=== PATIENT | male | born 1960 | race Caucasian/White ===

== ENCOUNTER → 2016-07-09 | Outpatient (CLI) | payer MEDICARE, MEDICAID ==
[~2016-07-09] VITALS: Ht 170.2 cm; Wt 107.8 kg
[~2016-07-09] MED LIST: ASPI-110 PO; ASPI81TA82 PO; CALC0.5C6 PO; CALC667C PO; CALC667T PO; CARV12.52 PO; CARV25TA PO; CLON.1 PO; CLON0.1T PO; FURO1TAB60 PO; FURO1TAB93 PO; HYDR100T2 PO; HYDR50TA15 PO; INSULIN HUMAN REGULAR 1,000 UNITS/10 ML VIAL SQ ONE; INSULIN HUMAN REGULAR 1,000 UNITS/10 ML VIAL SQ PRN; LACTATED RINGER'S 1000 ML IV SCH; LEVEMIR SQ; LOSA100T PO; LOSA50TA PO; METOPROLOL TARTRATE 25 MG TAB PO PRN; NEUR100C PO; NITR.4 SL; NOVOLOGP2 SQ; PROPOFOL 200 MG/20 ML AMP IV ONE; SIMV40TA PO; SODIUM CHLORID 0.9% 500 ML IV SCH; ZOCO40TA PO
[2016-07-09 09:46] VITALS: BP 165/83; PULSE 77; RESP 18; TEMP 98.6; O2SAT 98
--- NOTE | 2016-07-09 11:23 | PD.PROCEDR ---
GI Procedure PROCEDURE PERFORMED Colonoscopy with snare polypectomy INDICATION FOR PROCEDURE History of colon polyps PROCEDURE: The procedure, risks and benefits were discussed with Mr. Singleton and informed consent was obtained. Anesthesia sedated him with Diprivan. He was placed in the left lateral decubitus position. Colonoscopy: The Pentax videoscope was introduced through the rectum and advanced to cecum where the ileocecal valve and appendiceal orifice were identified. Retroflexion was performed in the rectum. Colonic prep was fair FINDINGS: Colonic withdrawal time greater than 6 minutes as the scope was slowly withdrawn colonic mucosa was carefully inspected the patient was noted to have 2 large polyps some pedunculated both in the transverse colon both were excised using hot snare technique and both were retrieved for further evaluation otherwise colonic examination was unremarkable so as retroflexion in rectal examination ESTIMATED BLOOD LOSS: None SPECIMENS REMOVED: Colon polyps COMPLICATIONS: None IMPRESSION: Colon polyp PLAN: Await biopsy Follow-up as needed High fiber diet Colonoscopy in 3 years Vinayak Tam MD Jul 09, 2016 11:23
[2016-07-09 12:00] VITALS: BP 135/75; PULSE 68; RESP 18; O2SAT 99
--- NOTE | 2016-07-09 18:25 | EKG ---
Date Performed: 07/09/2016 Time Performed: 09:32:14 PTAGE: 56 years EKG: Sinus rhythm WITH FIRST DEGREE AV BLOCK BORDERLINE LEFT AXIS DEVIATION LEFT VENTRICULAR HYPERTROPHY AND ST-T CLIFFORD GE ABNORMAL ECG PREVIOUS TRACING : 04/20/2015 17.58 Since previous tracing, no significant change noted DOCTOR: Cathryn Ravi Interpretating Date/Time 07/09/2016 18:23:50
== END ==
LOC: HEND 08:39
PROVIDERS: ATTEND Internal Medicine Gastroenterology
DX: Z12.11 Encounter for screening for malignant neoplasm of colon (principal); Z86.010 Personal history of colon polyps; D12.3 Benign neoplasm of transverse colon; I12.9 Hypertensive chronic kidney disease with stage 1 through stage 4 chronic kidney disease, or unspecified chronic kidney disease; N18.2 Chronic kidney disease, stage 2 (mild); E11.9 Type 2 diabetes mellitus without complications; Z79.82 Long term (current) use of aspirin; Z99.2 Dependence on renal dialysis; Z79.4 Long term (current) use of insulin
CPT/HCPCS: 00810; 45385; 82948; 84132; 88305; 93005; J1815; J7040

== ENCOUNTER 2017-04-12 17:22 | Inpatient (IN) | payer MEDICARE, MEDICAID ==
[~2017-04-12] VITALS: Ht 170.2 cm; Wt 104.5 kg
[~2017-04-12 17:22] MED LIST changes: -ASPI81TA82 PO; -CALC0.5C6 PO; -CALC667T PO; -CARV12.52 PO; -CLON.1 PO; -FURO1TAB93 PO; -HYDR100T2 PO; -INSULIN HUMAN REGULAR 1,000 UNITS/10 ML VIAL SQ ONE; -INSULIN HUMAN REGULAR 1,000 UNITS/10 ML VIAL SQ PRN; -LACTATED RINGER'S 1000 ML IV SCH; -METOPROLOL TARTRATE 25 MG TAB PO PRN; -NITR.4 SL; -PROPOFOL 200 MG/20 ML AMP IV ONE; -SODIUM CHLORID 0.9% 500 ML IV SCH; -ZOCO40TA PO
[2017-04-12 17:24] VITALS: BP 142/87; PULSE 111; RESP 26; TEMP 98.4; O2SAT 99
[2017-04-12] MEDS ORDERED: HEPARIN SODIUM - IV 10,000 UNITS/10 ML VIAL IV ONE (18:00)
[2017-04-12] MEDS ORDERED: SODIUM CHLORIDE 0.9% FLUSH 10 ML FLUSH IVF PRN (18:00)
[2017-04-12] MEDS ORDERED: HEPARIN-D5W 25,000 U/250 ML 250 ML IV ONE (18:00)
[2017-04-12] MEDS ORDERED: HYDR-3800 PO (18:22)
--- NOTE | 2017-04-12 18:30 | RADRPT ---
EXAM DATE/TIME: 04/12/2017 18:04 [place] COMPARISON: CHEST PA & LAT, April 23, 2015, 13:43. INDICATIONS : Chest pain. MEDICAL HISTORY : Hypertension. Cerebrovascular disease. Diabetes SURGICAL HISTORY : Vas Cath placement ENCOUNTER: Initial ACUITY: 4 - 6 days PAIN SCORE: 7/10 LOCATION: Bilateral chest FINDINGS: The lungs are clear without infiltrate, nodule, or mass. There is no appreciable pleural effusion fo r technique. Heart and mediastinum are unremarkable. CONCLUSION: No acute cardiopulmonary disease. Rachell Hernandez MD on April 12, 2017 at 18:28 Board Certified Radiologist. This report was verified electronically.
[2017-04-12 18:32] VITALS: BP_SYST 149; BP_SYST 150; BP_DIAS 74; BP_DIAS 87; PULSE 100; PULSE 103; RESP 16; O2SAT 95; O2SAT 99
--- NOTE | 2017-04-12 18:39 | PD ---
HPI Chief Complaint: Chest Pain Time Seen by Provider: 17:33 Travel History International Travel<30 days: No Contact w/Intl Traveler<30days: No Traveled to known affect area: No History of Present Illness HPI 56-year-old male came to the emergency room with history of substernal chest pain radiating to his right shoulder. Patient says that he's been getting on and off chest pain for past 3-4 days. He has end-stage renal disease with hemodialysis dependence. He was getting hemodialyzed today when he started getting the pain again. He was given 3 sublingual nitroglycerin at the dialysis Center and he was recommended to come to the emergency room. Patient did not want to come at that time and went home instead. At home he continued to get the chest pain and decided to come in. No associated shortness of breath or nausea vomiting. No syncopal episode. Patient says that he had a stress test 2 years ago. No history of coronary artery disease. He was atrial fibrillation on the monitor. No history of previous A. fib. Patient is not on blood thinners. [facility] Past Medical History Narrative Medical List of his past medical, surgical, social and family history is reviewed from the nursing note. Autoimmune Disease: No Heart Rhythm Problems: No Cancer: No Cardiac Catheterization: Yes (2010 IN [place]) Cardiovascular Problems: Yes (HEART ATTACK 2010) High Cholesterol: Yes Chest Pain: No Congestive Heart Failure: Yes Diabetes: Yes Diminished Hearing: No Endocrine: No Gastrointestinal Disorders: No Genitourinary: No Hepatitis: No Hiatal Hernia: No Hypertension: Yes Immune Disorder: No Implanted Vascular Access Dvce: No Kidney Stones: No Musculoskeletal: No Neurologic: No Psychiatric: No Reproductive: No Respiratory: No Myocardial Infarction: Yes (2010) Renal Failure: Yes Sleep Apnea: No Thyroid Disease: No Past Surgical History Abdominal Surgery: No AICD: No Arteriovenous Shunt: Yes Cardiac Surgery: No Coronary Artery Bypass Graft: No Ear Surgery: No Endocrine Surgery: No Eye Surgery: Yes (BILAT. CATARACT SX) Genitourinary Surgery: No Gynecologic Surgery: No Insulin Pump: No Joint Replacement: No Oral Surgery: No Pacemaker: No Thoracic Surgery: No Other Surgery: Yes (R PINKIE TOE REMOVED) Social History Alcohol Use: No Tobacco Use: No Substance Use: No Allergies-Medications (Allergen,Severity, Reaction): Coded Allergies: No Known Allergies (Unverified , 1/12/17) Comments No known drug allergies. Reported Meds & Prescriptions Reported Meds & Active Scripts Active Reported Hydralazine HCl 50 Mg Tablet 50 Mg PO TID Levemir Inj (Insulin Detemir) 1,000 unit/ 10 ML Vial 30 Units SQ HS Do not mix with any other Insulin. Levemir Inj (Insulin Detemir) 1,000 unit/ 10 ML Vial 25 Units SQ DAILY Do not mix with any other Insulin. Novolog Inj (Insulin Aspart) 1,000 Unit/10 Ml Vial 15 Units SQ TID Simvastatin 40 Mg Tab 40 Mg PO DAILY Losartan (Losartan Potassium) 100 Mg Tab 100 Mg PO HS Losartan (Losartan Potassium) 50 Mg Tab 50 Mg PO DAILY Aspirin 81 (Aspirin) 81 Mg Tabdr 81 Mg PO DAILY Clonidine (Clonidine HCl) 0.1 Mg Tab 0.1 Mg PO BID Carvedilol 25 Mg Tab 25 Mg PO BID Calcium Acetate (Calcium Acetate (Phosphate Bin) 667 Mg Cap 1,334 Mg PO TID Neurontin (Gabapentin) 100 Mg Cap 100 Mg PO TID Narrative Medication List of his home medications reviewed from the nursing note. Review of Systems Except as stated in HPI: all other systems reviewed are Neg Physical Exam Narrative GENERAL: Awake, alert, obese, moderate distress SKIN: Focused skin assessment warm/dry. Right AV fistula with thrill. HEAD: Atraumatic. Normocephalic. EYES: Pupils equal and round. No scleral icterus. No injection or drainage. ENT: No nasal bleeding or discharge. Mucous membranes pink and moist. NECK: Trachea midline. No JVD. CARDIOVASCULAR: Regular rate and rhythm. No murmur appreciated. RESPIRATORY: No accessory muscle use. Clear to auscultation. Breath sounds equal bilaterally. GASTROINTESTINAL: Abdomen soft, non-tender, nondistended. Hepatic and splenic margins not palpable. MUSCULOSKELETAL: No obvious deformities. No clubbing. No cyanosis. No edema. NEUROLOGICAL: Awake and alert. No obvious cranial nerve deficits. Motor grossly within normal limits. Normal speech. PSYCHIATRIC: Appropriate mood and affect; insight and judgment normal. Data Data Last Documented VS Orders Orders Electrocardiogram (04/12/17 17:54) Basic Metabolic Panel (Bmp) (04/12/17 17:54) Ckmb (Isoenzyme) Profile (04/12/17 17:54) Complete Blood Count With Diff (04/12/17 17:54) Magnesium (Mg) (04/12/17 17:54) Prothrombin Time / Inr (Pt) (04/12/17 17:54) Act Partial Throm Time (Ptt) (04/12/17 17:54) Troponin I (04/12/17 17:54) Chest, Single Ap (04/12/17 17:54) Ecg Monitoring (04/12/17 17:54) Bilateral Bp Monitoring (04/12/17 17:54) Iv Access Insert/Monitor (04/12/17 17:54) Oximetry (04/12/17 17:54) Oxygen Administration (04/12/17 17:54) Sodium Chloride 0.9% Flush (Ns Flush) (04/12/17 18:00) Heparin Infusion BLAIRE.Q1H (04/12/17 17:59) Heparin Inj (Heparin Inj) (04/12/17 18:00) Heparin Inj (Heparin Inj) (04/13/17 00:00) Heparin Inj (Heparin Inj) (04/13/17 00:00) Heparin-D5w 25,000 U/250 Ml (Heparin-D5w (04/12/17 18:00) Cbc No Diff, Includes Plts (04/15/17 06:00) CKMB (04/12/17 18:00) CKMB% (04/12/17 18:00) Metoprolol Tartrate Inj (Lopressor Inj) (04/12/17 19:30) Nitroglycerin-D5w 50 Mg/250 Ml (Nitrogly (04/12/17 19:30) Admit Order (Ed Use Only) (04/12/17 19:32) Consult Nephrology (04/12/17 ) Labs Laboratory Tests Test 04/12/17 18:00 White Blood Count 9.4 TH/MM3 Red Blood Count 3.49 MIL/MM3 Hemoglobin 11.3 GM/DL Hematocrit 33.5 % Mean Corpuscular Volume 95.9 FL Mean Corpuscular Hemoglobin 32.4 PG Mean Corpuscular Hemoglobin Concent 33.7 % Red Cell Distribution Width 14.8 % Platelet Count 141 TH/MM3 Mean Platelet Volume 10.0 FL Neutrophils (%) (Auto) 79.8 % Lymphocytes (%) (Auto) 10.4 % Monocytes (%) (Auto) 8.1 % Eosinophils (%) (Auto) 1.1 % Basophils (%) (Auto) 0.6 % Neutrophils # (Auto) 7.5 TH/MM3 Lymphocytes # (Auto) 1.0 TH/MM3 Monocytes # (Auto) 0.8 TH/MM3 Eosinophils # (Auto) 0.1 TH/MM3 Basophils # (Auto) 0.1 TH/MM3 CBC Comment DIFF FINAL Differential Comment Prothrombin Time 12.0 SEC Prothromb Time International Ratio 1.1 RATIO Activated Partial Thromboplast Time 27.3 SEC Blood Urea Nitrogen 36 MG/DL Creatinine 5.37 MG/DL Random Glucose 203 MG/DL Calcium Level 8.3 MG/DL Magnesium Level 2.0 MG/DL Sodium Level 135 MEQ/L Potassium Level 5.2 MEQ/L Chloride Level 106 MEQ/L Carbon Dioxide Level 17.5 MEQ/L Anion Gap 12 MEQ/L Estimat Glomerular Filtration Rate 11 ML/MIN Total Creatine Kinase 520 U/L Creatine Kinase MB 13.2 NG/ML Creatine Kinase MB % 2.5 % Troponin I 9.94 NG/ML MDM Medical Decision Making Medical Screen Exam Complete: Yes Emergency Medical Condition: Yes Medical Record Reviewed: Yes Interpretation(s) Twelve-lead EKG was reviewed by me. Atrial fibrillation, RVR, left axis deviation, LVH by voltage criteria, old inferior NM, lateral T wave inversion that is new from generally 2017. Heart rate of 10 9 bpm Differential Diagnosis STEMI, Unstable Angina, New Onset A. fib with RVR Narrative Course 6:38 PM patient was started on heparin bolus and drip for the new onset A. fib. My suspicion is really high for non-STEMI. Especially with EKG changes. Awaiting for the blood test results to come back. I've explained all this to the patient and he understands. Patient will need to be admitted medically. 7:17 PM patient's troponin indeed is very high. This is in spite of him being dialyzed this morning. I would like to admit this patient to the intensive care unit at this point. Awaiting for spragger as well as ortho/prosthetic aide to call back. 7:38 PM case was discussed with patient's fruit raiser Dr. Corona to notify him regarding patient's current diagnosis and possible need for dialysis tomorrow. I also discussed with Dr. Gorssman who is on-call for cardiology wanted the patient to be started on nitroglycerin, IV Lopressor and nothing by mouth after midnight so that he can be catheter tomorrow. Patient will be admitted to the ortho/prosthetic aide Dr. Hayes. Critical Care Narrative Aggregate critical care time was 60 minutes. Time to perform other separately billable procedures was not included in the critical care time. My time did not include minutes spent treating any other patients simultaneously or on activities that did not directly contribute to the patient's treatment. The services I provided to this patient were to treat and/or prevent clinically significant deterioration that could result in: Non-STEMI, heparin bolus and drip, end-stage renal disease, hemodialysis dependent I provided critical care services requiring my management, as noted below: Chart data review, documentation time, medication orders and management, vital sign assessments/reviewing monitor data, ordering and reviewing lab tests, ordering and interpreting/reviewing x-rays and diagnostic studies, care of the patient and discussion of the patient with the admitting physicians. Procedures EKG Prior to Arrival: No Physician Communication Physician Communication Dr. Grossman, Dr. Hayes, Dr. Corona Diagnosis Primary Impression: Non-STEMI (non-ST elevated myocardial infarction) Additional Impressions: End stage renal disease Dependent on hemodialysis Metabolic acidosis Admitting Information Admitting Physician Requests: Admit Scripts Alprazolam (Xanax) 0.25 Mg Tab 0.25 MG PO Q8H Y for ANXIETY, #10 TAB Prov: Jaylan Mendez MD 04/17/17 Farzana Khan MD Apr 12, 2017 18:39
[2017-04-12 18:48] LABS: AUTOMATED NEUTROPHIL # 7.5 TH/MM3 (1.8-7.7); BASOPHIL # 0.1 TH/MM3 (0-0.2); BASOPHIL % 0.6 % (0.0-2.0); EOSINOPHIL # 0.1 TH/MM3 (0-0.4); EOSINOPHIL % 1.1 % (0.0-4.0); HEMATOCRIT 33.5 % (39.0-51.0); HEMO FLAGS DIFF FINAL; LYMPH % 10.4 % (9.0-44.0); MEAN CELL VOLUME 95.9 FL (80.0-100.0); MEAN CORPUSCULAR HEMOGLOBIN 32.4 PG (27.0-34.0); MEAN CORPUSCULAR HGB CONC 33.7 % (32.0-36.0); MONO % 8.1 % (0.0-8.0); NEUT % 79.8 % (16.0-70.0); PLATELET COUNT 141 TH/MM3 (150-450); RED BLOOD COUNT 3.49 MIL/MM3 (4.50-5.90); RED CELL DISTRIBUTION WIDTH 14.8 % (11.6-17.2); WHITE BLOOD COUNT 9.4 TH/MM3 (4.0-11.0)
[2017-04-12 19:02] LABS: APTT (PATIENT) 27.3 SEC (24.3-30.1); INTERNATIONAL NORMALIZED RATIO 1.1 RATIO
[2017-04-12 19:10] LABS: BICARBONATE 17.5 MEQ/L (21.0-32.0); POTASSIUM 5.2 MEQ/L (3.5-5.1)
[2017-04-12] MEDS ORDERED: METOPROLOL TARTRATE 5 MG/5 ML VIAL IV PUSH ONE (19:30)
[2017-04-12] MEDS ORDERED: NITROGLYCERIN-D5W 50 MG/250 ML 250 ML IV PRN (19:30)
[2017-04-12 19:33] LABS: CKMB 13.2 NG/ML (0.5-3.6)
[2017-04-12] MEDS ORDERED: ALPRAZolam 0.25 MG TAB PO PRN (20:15)
[2017-04-12] MEDS ORDERED: ONDANSETRON HCL 4 MG/2 ML VIAL IV PUSH PRN (20:15)
[2017-04-12] MEDS ORDERED: CHLORHEXIDINE GLUCONATE 2 % 1 PACK (2 CLOTHS) TOP PRN (20:15)
[2017-04-12] MEDS ORDERED: HEPARIN-D5W 25,000 U/250 ML 250 ML IV PRN (20:15)
[2017-04-12] MEDS ORDERED: ACETAMINOPHEN 325 MG TAB PO PRN (20:15)
[2017-04-12] MEDS ORDERED: MISCELLANEOUS NURSING INFORMATION XX SCH (20:15)
[2017-04-12] MEDS ORDERED: SODIUM CHLORIDE 0.9% FLUSH 10 ML FLUSH IV FLUSH PRN (20:15)
[2017-04-12] MEDS ORDERED: DOCUSATE SODIUM 100 MG CAP PO PRN (20:15)
[2017-04-12 20:24] VITALS: BP 129/72; PULSE 122; RESP 18; O2SAT 99
--- NOTE | 2017-04-12 21:13 | HHI.HP ---
[facility] Service Critical Care Medicine Primary Care Physician Noam Bunn MD Admission Diagnosis NSTEMI, ESRD, HD dependent Diagnosis: Travel History International Travel<30 Days: No Contact w/Intl Traveler <30 Da: No Traveled to Known Affected Are: No History of Present Illness 56-year-old male comes with history of substernal chest pain radiating to his right shoulder. Patient says that he's been getting on and off chest pain for past 3-4 days. He has end-stage renal disease with hemodialysis dependence. He was getting hemodialyzed today when he started getting the pain again. He was given 3 sublingual nitroglycerin at the dialysis Center and he was recommended to come to the emergency room. Patient did not want to come at that time and went home instead. At home he continued to get the chest pain and decided to come in. No syncopal episode. Patient says that he had a stress test 2 years ago. No history of coronary artery disease. He was atrial fibrillation on the monitor in the emergency department. No history of previous A. fib. His initial troponin was 10 and the patient is admitted to ICU as a non-ST elevation myocardial infarction. Review of Systems Constitutional: COMPLAINS OF: Diaphoretic episodes, DENIES: Fatigue, Fever, Weight gain, Weight loss, Chills, Dizziness, Change in appetite, Night Sweats Endocrine: DENIES: Heat/cold intolerance, Polydipsia, Polyuria, Polyphagia Eyes: DENIES: Blurred vision, Diplopia, Eye inflammation, Eye pain, Vision loss , Photosensitivity, Double Vision Ears, nose, mouth, throat: DENIES: Tinnitus, Hearing loss, Vertigo, Nasal discharge, Oral lesions, Throat pain, Hoarseness, Ear Pain, Running Nose, Epistaxis, Sinus Pain, Toothache, Odynophagia Respiratory: COMPLAINS OF: Shortness of breath, DENIES: Apneas, Cough, Snoring , Wheezing, Hemoptysis, Sputum production Cardiovascular: COMPLAINS OF: Chest pain, DENIES: Palpitations, Syncope, Dyspnea on Exertion, PND, Lower Extremity Edema, Orthopnea, Claudication Gastrointestinal: DENIES: Abdominal pain, Black stools, Bloody stools, Constipation, Diarrhea, Nausea, Vomiting, Difficulty Swallowing, Anorexia Genitourinary: DENIES: Sexual dysfunction, Urinary frequency, Urinary incontinence, Urgency, Hematuria, Dysuria, Nocturia, Penile Discharge, Testicular Pain, Testicular Swelling Musculoskeletal: DENIES: Joint pain, Muscle aches, Stiffness, Joint Swelling, Back pain, Neck pain Integumentary: DENIES: Abnormal pigmentation, Nail changes, Pruritus, Rash Hematologic/lymphatic: DENIES: Bruising, Lymphadenopathy Immunologic/allergic: DENIES: Eczema, Urticaria Neurologic: DENIES: Abnormal gait, Headache, Localized weakness, Paresthesias, Seizures, Speech Problems, Tremor, Poor Balance Psychiatric: DENIES: Anxiety, Confusion, Mood changes, Depression, Hallucinations, Agitation, Suicidal Ideation, Homicidal Ideation, Delusions Past Family Social History Allergies: Coded Allergies: No Known Allergies (Unverified , 07/08/16) Past Medical History Hypertension Diabetes mellitus End-stage renal disease on hemodialysis Past Surgical History Cataract Surgery, Right 5th Toe Amputation Reported Medications Reported Meds & Active Scripts Active Reported Hydralazine HCl 50 Mg Tablet 50 Mg PO TID Levemir Inj (Insulin Detemir) 1,000 unit/ 10 ML Vial 30 Units SQ HS Do not mix with any other Insulin. Levemir Inj (Insulin Detemir) 1,000 unit/ 10 ML Vial 25 Units SQ DAILY Do not mix with any other Insulin. Novolog Inj (Insulin Aspart) 1,000 Unit/10 Ml Vial 15 Units SQ TID Simvastatin 40 Mg Tab 40 Mg PO DAILY Losartan (Losartan Potassium) 100 Mg Tab 100 Mg PO HS Losartan (Losartan Potassium) 50 Mg Tab 50 Mg PO DAILY Aspirin 81 (Aspirin) 81 Mg Tabdr 81 Mg PO DAILY Clonidine (Clonidine HCl) 0.1 Mg Tab 0.1 Mg PO BID Carvedilol 25 Mg Tab 25 Mg PO BID Calcium Acetate (Calcium Acetate (Phosphate Bin) 667 Mg Cap 1,334 Mg PO TID Neurontin (Gabapentin) 100 Mg Cap 100 Mg PO TID Active Ordered Medications Current Medications Medications (Trade) Dose Ordered Sig/Taj Route PRN Reason Start Time Stop Time Status Last Admin Dose Admin Sodium Chloride (NS Flush) 2 ml UNSCH PRN IVF FLUSH AFTER USING IV ACCESS 04/12/17 18:00 Heparin Sodium (Porcine) (Heparin Inj) 5,000 units UNSCH PRN IV APTT LESS THAN 25 04/13/17 00:00 Heparin Sodium (Porcine) (Heparin Inj) 2,500 units UNSCH PRN IV APTT 25 TO 39 04/13/17 00:00 Nitroglycerin/ Dextrose 250 ml @ 1.5 mls/hr TITRATE PRN IV Chest pain relief 04/12/17 19:30 Aspirin (Ecotrin Ec) 81 mg DAILY PO 04/13/17 09:00 Calcium Acetate (Phoslo) 1,334 mg TID PO 04/13/17 09:00 Carvedilol (Coreg) 25 mg BID PO 04/12/17 21:00 Clonidine (Catapres) 0.1 mg BID PO 04/12/17 21:00 Gabapentin (Neurontin) 100 mg TID PO 04/13/17 09:00 Hydralazine HCl (Apresoline) 50 mg TID PO 04/13/17 09:00 Losartan Potassium (Cozaar) 50 mg DAILY PO 04/13/17 09:00 Pravastatin Sodium (Pravachol) 80 mg DAILY PO 04/13/17 09:00 Sodium Chloride (NS Flush) 2 ml BID IV FLUSH 04/12/17 21:00 Sodium Chloride (NS Flush) 2 ml UNSCH PRN IV FLUSH FLUSH AFTER USING IV ACCESS 04/12/17 20:15 Aspirin (Ecotrin Ec) 325 mg DAILY PO 04/13/17 09:00 Nitroglycerin (Nitroglycerin 2% Oint) 1 inch DAILY TOP 04/13/17 09:00 Morphine Sulfate (Morphine Inj) 2 mg Q3H PRN IV PUSH SEVERE PAIN 04/12/17 20:15 Acetaminophen (Tylenol) 650 mg Q6H PRN PO HEADACHE OR TEMP > 101 F 04/12/17 20:15 Docusate Sodium (Colace) 100 mg BID PRN PO CONSTIPATION 04/12/17 20:15 Alprazolam (Xanax) 0.25 mg Q8H PRN PO ANXIETY 04/12/17 20:15 Ondansetron HCl (Zofran Inj) 4 mg Q6H PRN IV PUSH NAUSEA OR VOMITING 04/12/17 20:15 Metoprolol Tartrate (Lopressor) 25 mg Q6H PO 04/12/17 21:00 Heparin Sodium/ Dextrose 250 ml @ 10 mls/hr TITRATE PRN IV Coagulation management 04/12/17 20:15 Miscellaneous Information 1 [id number] XX 04/12/17 20:15 Chlorhexidine Gluconate (Chlorhexidine 2% Cloth) 3 pack Taper DAILY@04 TOP 04/13/17 04:00 04/09/18 03:59 Chlorhexidine Gluconate (Chlorhexidine 2% Cloth) 3 pack UNSCH PRN TOP HYGIENIC CARE 04/12/17 20:15 Family History No family history of malignancy Social History Denies history of alcohol tobacco or illicit drug abuse Physical Exam Vital Signs Vital Signs Date Time Temp Pulse Resp B/P (MAP) Pulse Ox O2 Delivery O2 Flow Rate FiO2 04/12/17 20:24 122 18 129/72 (91) 99 Nasal Cannula 2.00 04/12/17 18:32 98 Nasal Cannula 2.00 04/12/17 18:32 103 16 149/87 (107) 99 Nasal Cannula 2.00 04/12/17 18:32 100 16 150/74 (99) 95 Nasal Cannula 2.00 04/12/17 18:00 99 16 96 Nasal Cannula 2.00 04/12/17 17:24 98.4 111 26 142/87 (105) 99 Room Air Physical Exam GENERAL: Well-nourished, well-developed patient. SKIN: Warm and dry. HEAD: Normocephalic. EYES: No scleral icterus. No injection or drainage. NECK: Supple, trachea midline. No JVD or lymphadenopathy. CARDIOVASCULAR: Regular rate and rhythm without murmurs, gallops, or rubs. RESPIRATORY: Breath sounds equal bilaterally. No accessory muscle use. GASTROINTESTINAL: Abdomen soft, non-tender, nondistended. Morbidly obese MUSCULOSKELETAL: No cyanosis, or edema. BACK: Nontender without obvious deformity. NEURO EXAM: GCS: M 6 V 5 E 4 Mental Status: The patient is alert and oriented to person, place, and time with normal speech. Cranial Nerves: Visual acuity intact bilaterally. Visual jacob normal in all quadrants. Pupils are round, reactive to light. Extraocular movements are intact without ptosis. Hearing is normal bilaterally. Voice is normal. Tongue protrudes midline and moves symmetrically. Reflexes: Biceps, patellar, and Achilles are 2/4 bilaterally. No clonus. Laboratory Laboratory Tests Test 04/12/17 18:00 White Blood Count 9.4 Red Blood Count 3.49 Hemoglobin 11.3 Hematocrit 33.5 Mean Corpuscular Volume 95.9 Mean Corpuscular Hemoglobin 32.4 Mean Corpuscular Hemoglobin Concent 33.7 Red Cell Distribution Width 14.8 Platelet Count 141 Mean Platelet Volume 10.0 Neutrophils (%) (Auto) 79.8 Lymphocytes (%) (Auto) 10.4 Monocytes (%) (Auto) 8.1 Eosinophils (%) (Auto) 1.1 Basophils (%) (Auto) 0.6 Neutrophils # (Auto) 7.5 Lymphocytes # (Auto) 1.0 Monocytes # (Auto) 0.8 Eosinophils # (Auto) 0.1 Basophils # (Auto) 0.1 CBC Comment DIFF FINAL Differential Comment Prothrombin Time 12.0 Prothromb Time International Ratio 1.1 Activated Partial Thromboplast Time 27.3 Blood Urea Nitrogen 36 Creatinine 5.37 Random Glucose 203 Calcium Level 8.3 Magnesium Level 2.0 Sodium Level 135 Potassium Level 5.2 Chloride Level 106 Carbon Dioxide Level 17.5 Anion Gap 12 Estimat Glomerular Filtration Rate 11 Total Creatine Kinase 520 Creatine Kinase MB 13.2 Creatine Kinase MB % 2.5 Troponin I 9.94 Result Diagram: 04/12/17 1800 04/12/17 1800 Imaging Last 24 hours Impressions Chest X-Ray 04/12/17 3624 Signed Impressions: Service Date/Time: Wednesday, April 12, 2017 18:04 - CONCLUSION: No acute cardiopulmonary disease. Rachell Hernandez MD Capgeovanyi VTE Risk Assessment Caprini VTE Risk Assessment: Mod/High Risk (score >= 2) Caprini Risk Assessment Model Point Value = 1 Point Value = 2 Point Value = 3 Point Value = 5 Age 41-60 Minor surgery BMI > 25 kg/m2 Swollen legs Varicose veins or History of unexplained or recurrent spontaneous Oral contraceptives or hormone replacement Sepsis (< 1 month) Serious lung disease, including pneumonia (< 1 month) Abnormal pulmonary function Acute myocardial infarction Congestive heart failure (< 1 month) History of inflammatory bowel disease Medical patient at bed rest Age 61-74 Arthroscopic surgery Major open surgery (> 45 min) Laparoscopic surgery (> 45 min) Malignancy Confined to bed (> 72 hours) Immobilizing plaster cast Central venous access Age >= 75 History of VTE Family history of VTE Factor V Leiden Prothrombin [id number] Lupus anticoagulant Anticardiolipin antibodies Elevated serum homocysteine Heparin-induced thrombocytopenia Other congenital or acquired thrombophilia Stroke (< 1 month) Elective arthroplasty Hip, pelvis, or leg fracture Acute spinal cord injury (< 1 month) Prophylaxis Regimen Total Risk Factor Score Risk Level Prophylaxis Regimen 0-1 Low Early ambulation 2 Moderate Order ONE of the following: *Sequential Compression Device (SCD) *Heparin 5000 units SQ BID 3-4 Higher Order ONE of the following medications: *Heparin 5000 units SQ TID *Enoxaparin/Lovenox 40 mg SQ daily (WT < 150 kg, CrCl > 30 mL/min) *Enoxaparin/Lovenox 30 mg SQ daily (WT < 150 kg, CrCl > 10-29 mL/min) *Enoxaparin/Lovenox 30 mg SQ BID (WT < 150 kg, CrCl > 30 mL/min) AND/OR *Sequential Compression Device (SCD) 5 or more Highest Order ONE of the following medications: *Heparin 5000 units SQ TID (Preferred with Epidurals) *Enoxaparin/Lovenox 40 mg SQ daily (WT < 150 kg, CrCl > 30 mL/min) *Enoxaparin/Lovenox 30 mg SQ daily (WT < 150 kg, CrCl > 10-29 mL/min) *Enoxaparin/Lovenox 30 mg SQ BID (WT < 150 kg, CrCl > 30 mL/min) AND *Sequential Compression Device (SCD) Assessment and Plan Assessment and Plan Non-ST elevation myocardial infarction - Heparin drip - Monitor trends of troponins - Serial EKGs - Cardiology consult Dr. Grossman appreciated - Metoprolol 25 every 6 hours - Nitro paste - Atorvastatin - Aspirin - Admit to ICU - Cardiac catheterization tomorrow a.m. Diabetes mellitus - Hold long acting insulin due to nothing by mouth - Insulin sliding scale Hypertension - Hydralazine - Metoprolol - Hold lisinopril End-stage renal disease - HD per nephrology DVT GI prophylaxis - Teds SCDs - Heparin drip - Pepcid Critical Care: The total critical care time was 35 minutes. Time to perform other separately billable procedures was not included in the critical care time. Brijesh Hayes MD Apr 12, 2017 21:13
[2017-04-12] MEDS ORDERED: DEXTROSE 50% IN WATER 50 ML VIAL(D50) IV PUSH PRN (21:15)
[2017-04-12] MEDS ORDERED: GLUCAGON 1 MG/ML VIAL OTHER PRN (21:15)
[2017-04-12 21:31] VITALS: BP 119/68
[2017-04-12 22:00] VITALS: BP 163/93; PULSE 89; RESP 21; TEMP 99.9; O2SAT 96
[2017-04-12] MEDS: cloNIDine HCL 0.1 MG TAB PO SCH (22:35)
[2017-04-12] MEDS: SODIUM CHLORIDE 0.9% FLUSH 10 ML FLUSH IV FLUSH SCH (22:35)
[2017-04-12] MEDS: CARVEDILOL 12.5 MG TAB PO SCH (22:35)
[2017-04-12] MEDS: METOPROLOL TARTRATE 25 MG TAB PO SCH (22:35)
[2017-04-13] VITALS (12 sets, daily range): BP systolic 88–140; BP diastolic 53–77; PULSE 66–89; RESP 15–21; TEMP 97.8–98.4; O2SAT 97–100
[2017-04-13] MEDS ORDERED: HEPARIN SODIUM - IV 10,000 UNITS/10 ML VIAL IV PRN ×2
[2017-04-13] MEDS: MORPHINE SULFATE 4 MG/ML INJ IV PUSH PRN (00:18)
[2017-04-13] MEDS: NITROGLYCERIN 2% OINT 1 GM PACKET TOPICAL SCH ×4 (00:18→17:39)
[2017-04-13 00:46] LABS: MEAN CELL VOLUME 96.3 FL (80.0-100.0); MEAN CORPUSCULAR HGB CONC 33.2 % (32.0-36.0); PLATELET COUNT 126 TH/MM3 (150-450); RED BLOOD COUNT 3.43 MIL/MM3 (4.50-5.90); RED CELL DISTRIBUTION WIDTH 14.6 % (11.6-17.2); REVIEW FLAG FINAL; WHITE BLOOD COUNT 9.6 TH/MM3 (4.0-11.0)
[2017-04-13 00:51] LABS: APTT (PATIENT) 32.2 SEC (24.3-30.1); INTERNATIONAL NORMALIZED RATIO 1.1 RATIO; PROTHROMBIN TIME - PATIENT 12.1 SEC (9.8-11.6)
[2017-04-13 01:13] LABS: HDL CHOLESTEROL 39.5 MG/DL (40.0-60.0); INDIRECT BILIRUBIN 0.3 MG/DL (0.0-0.8); TOTAL BILIRUBIN ADULT 0.5 MG/DL (0.2-1.0)
[2017-04-13 01:30] LABS: CKMB 10.1 NG/ML (0.5-3.6)
[2017-04-13] MEDS: CHLORHEXIDINE GLUCONATE 2 % 1 PACK (2 CLOTHS) TOP SCH (04:00)
[2017-04-13 04:06] LABS: AUTOMATED NEUTROPHIL # 6.9 TH/MM3 (1.8-7.7); BASOPHIL # 0.1 TH/MM3 (0-0.2); BASOPHIL % 0.6 % (0.0-2.0); EOSINOPHIL # 0.1 TH/MM3 (0-0.4); EOSINOPHIL % 1.2 % (0.0-4.0); HEMATOCRIT 31.3 % (39.0-51.0); HEMO FLAGS DIFF FINAL; LYMPH % 15.2 % (9.0-44.0); LYMPHOCYTE # 1.4 TH/MM3 (1.0-4.8); MEAN CELL VOLUME 96.5 FL (80.0-100.0); MEAN CORPUSCULAR HGB CONC 34.2 % (32.0-36.0); PLATELET COUNT 112 TH/MM3 (150-450); RED BLOOD COUNT 3.24 MIL/MM3 (4.50-5.90); RED CELL DISTRIBUTION WIDTH 14.6 % (11.6-17.2); WHITE BLOOD COUNT 9.3 TH/MM3 (4.0-11.0)
[2017-04-13 04:14] LABS: APTT (PATIENT) 30.8 SEC (24.3-30.1)
[2017-04-13 04:28] LABS: BICARBONATE 19.7 MEQ/L (21.0-32.0); POTASSIUM 5.1 MEQ/L (3.5-5.1)
[2017-04-13] MEDS: METOPROLOL TARTRATE 25 MG TAB PO SCH ×2 (04:38→09:27)
[2017-04-13 04:50] LABS: CKMB 8.8 NG/ML (0.5-3.6)
[2017-04-13] MEDS: INSULIN ASPART SUPPLEMENTAL SCALE SQ SCH ×4 (08:00→21:00)
[2017-04-13] MEDS ORDERED: diphenhydrAMINE HCL 50 MG CAP PO SCH (09:00)
[2017-04-13] MEDS ORDERED: ASPIRIN EC 81 MG TABEC PO SCH (09:00)
[2017-04-13] MEDS ORDERED: DIAZEPAM 10 MG TAB PO SCH (09:00)
--- NOTE | 2017-04-13 09:13 | MB ---
cc: MALLIKA BARROS M.D. DATE OF CONSULTATION 04/13/2017 DATE OF 1960 REASON FOR CONSULTATION [id number] myocardial infarction. HISTORY OF PRESENT ILLNESS The patient is a 56-year-old white male, followed in our office by Dr. Roddy Hernandez, with a history of multiple medical problems including coronary artery disease, diabetes, hypertension, hyperlipidemia, end-stage renal disease who presented to the emergency room with chest discomfort. The patient had just finished dialysis yesterday when he began to experience fairly severe substernal chest "tightness," associated with shortness of breath, without nausea or diaphoresis. The chest discomfort would wax and wane for the next several hours. He has continued to have "twinges" of chest discomfort today. He denies pleurisy, dizziness, syncope, near-syncope, palpitations, pedal edema, paroxysmal nocturnal dyspnea. He reports no change in chronic mild to moderate dyspnea on exertion. He cannot recall any other episodes of chest discomfort the last few months. At the present time he is resting comfortably, denying chest pain or shortness of breath. PAST MEDICAL HISTORY 1. Coronary artery disease status post myocardial infarction in 2010 at which time cardiac catheterization reportedly showed diffuse 50% LAD disease, totally occluded distal right coronary with [id number] collaterals. 2. End-stage renal disease. 3. Diabetes. 4. Hyperlipidemia. 5. Hypertension. CARDIAC MEDICATIONS AT HOME 1. Hydralazine 50 mg t.i.d. 2. Simvastatin 40 mg daily. 3. Losartan 150 mg daily. 4. Aspirin 81 mg daily. 5. Carvedilol 25 mg b.i.d. 6. Clonidine 0.1 mg b.i.d. ALLERGIES No known drug allergies. FAMILY HISTORY Noncontributory. SOCIAL HISTORY The patient denies any history of alcohol or tobacco abuse. REVIEW OF SYSTEMS As in the History of Present Illness, otherwise negative or noncontributory. He also denies headache, abdominal pain, melena, dyspepsia, bright red blood per rectum, wheezing, cough. PHYSICAL EXAMINATION VITAL SIGNS: His blood pressure is 130/77 with a pulse of 73, respirations 18. IN GENERAL: He is a well-developed, well-nourished white male in no acute distress HEENT EXAMINATION: Jugular venous pressure is very hard to assess. Carotid pulses are 2+ bilaterally and without bruits. EXAMINATION OF THE CHEST: Clear lung jacob anteriorly. CARDIAC: On cardiac examination he has an irregularly irregular rhythm without S3 or murmur. ABDOMEN: On abdominal examination he has a soft, obese, nontender abdomen. Bowel sounds are present. There is no definite hepatosplenomegaly. EXTREMITIES: Examination of extremities reveals no clubbing, cyanosis or edema. LABORATORY DATA WBC 9.3, hemoglobin 10.7, platelets 112, potassium 5.1, BUN 43, creatinine 6.24, CK 520 with 2.5% MB fraction. Troponin 9.94. CHEST X-RAY No acute disease. EKG Atrial fibrillation, inferior infarct age undetermined, lateral T-wave abnormality, consider ischemia. IMPRESSION Acute xpq-QT-wzwyzhxxl myocardial infarction in this 56-year-old white male with a history of multiple medical problems including coronary artery disease, end-stage renal disease, diabetes, hypertension, hyperlipidemia. Today he continues to have episodic chest discomfort at rest. Cardiac enzymes, especially troponin levels, are consistent with non-ST elevation myocardial infarction. EKG shows no definite ST-segment elevation. Because of the instability of his symptoms and the abnormal cardiac enzymes, he has been recommended cardiac catheterization with possible percutaneous coronary intervention the risks of which have been explained to him including but not limited to , myocardial infarction, stroke, arrhythmia, bleeding and infection. He agrees to proceed. RECOMMENDATIONS 1. Continue his usual home cardiac medications. 2. Check a fasting lipid profile. 3. Cardiac catheterization later today. MD JODIE Martinez/ARTURO /8:50 AM /8:59 AM VIVIEN
[2017-04-13] MEDS: PRAVASTATIN SOD 80 MG TAB PO SCH (09:26)
[2017-04-13] MEDS: GABAPENTIN 100 MG CAP PO SCH ×3 (09:26→17:36)
[2017-04-13] MEDS: cloNIDine HCL 0.1 MG TAB PO SCH ×2 (09:26→20:55)
[2017-04-13] MEDS: hydrALAZINE HCL 50 MG TAB PO SCH ×3 (09:26→17:36)
[2017-04-13] MEDS: LOSARTAN 50 MG TAB PO SCH (09:26)
[2017-04-13] MEDS: CALCIUM ACETATE 667 MG CAP PO SCH ×3 (09:27→17:36)
[2017-04-13] MEDS: ASPIRIN EC 325 MG TABEC PO SCH (09:27)
[2017-04-13] MEDS: CARVEDILOL 12.5 MG TAB PO SCH ×2 (09:27→20:55)
[2017-04-13] MEDS: NITROGLYCERIN 2% OINT 1 GM PACKET TOP SCH (09:27)
[2017-04-13] MEDS ORDERED: HEPARIN-NS/PF INJ 500 ML ONE (09:45)
[2017-04-13] MEDS ORDERED: MIDAZOLAM HCL 2 MG/2 ML VIAL ONE (09:45)
[2017-04-13] MEDS ORDERED: PNEUMOCOCCAL POLYVALENT INJ 25 MCG/0.5 ML SYR IM ONE (10:00)
--- NOTE | 2017-04-13 10:34 | CATHPROC ---
Product World HIS Report Study Information Study Number Admission Scheduled Start Study Start [id number] Apr 12 2017 7:39PM 04/13/2017 Apr 13 2017 9:09AM [place] [facility] Cardiac Catheterization Admit Source Facility Department Emergency department [facility] - Student Advisor Physician and Clinical Staff Initial Rene Wilkerson Design Consultant Lolly Flood BSRN Recorder Jian Gil,RT(R) Scrub Vaishnavi Mcallister,RT(R) Procedures Performed Procedure Location (Site) Vessel Name Angiogram LV LV Ventricle Coronary Angiograms LCA Left Coronary Coronary Angiograms RCA Right Coronary L Heart Cath Equipment Time [address] [facility] Justice Description Size Mfg Part Number Used/Scraped TRANSDUCER, TRUWAVE [id number] 09:09 [employer] HESS * Used W/STOCKCOCK *[id number] 10:19 [employer] MEDICAL VASCADE, FR5 CLOSURE SYSTEM FR 5 Used *[id number] *[id number] *[id number] [id number] *[id number] 09:09 [employer] PACK, CCL CUSTOM * Used *[id number] 09:09 [employer] PACER PEN, SKIN DUAL W/ RULER * Used *[id number] 09:09 [employer] SHEATH, FR6.5 PRELUDE 11CM FR 6.5 038ACT Used *[id number] 09:09 [employer] WIRE, 3MMJ .035 180CM 180CM Used *[id number] 09:09 [employer] MANIFOLD, 4 PORT * Used *[id number] 09:09 [employer] OMNIPAQUE, 350 MG, 150ML 150ML [id number] Used [id number] 09:09 [employer] BLANKET,WARM AIR CCL * Used *[id number] History: Current Medications Medication Dosage/Unit Route Frequency Last Date/Time Taken CARVEDILOL HYDRALAZINE CLONIDINE ASA NOVOLOG Statins (any) History: Allergies Allergy Reaction No Known Allergies History: Risk Factors Family History of Hypertension Dyslipidemia Previous OH Previous Heart Failure Premature CAD Yes Yes Yes Yes Yes Prior Valve Prior PCI Prior CABG Surgery No No No Cerebrovascular Peripheral Artery Chronic Lung On Dialysis Diabetes Diabetes Therapy Disease Disease Disease Yes No No No Yes Insulin History: Risk Factors Selection Items Diabetes Hypercholesterolemia-Lipid Low. Therapy History: Stress Tests Stress or Imaging Studies Performed No History: Other Disease Selection Items HTN History: Other Current Smoker No Labs Hgb (g/dl) Hct (%) RBC (MIL/MM3) WBC (l/cumm) Platelets (thousands) 11.60-17.00 35.00-51.00 4.00-5.90 4.00-11.00 150.00-450.00 10.7 31.3 3.2 9.3 112 Glucose (mg/dl) BUN (mg/dl) Creatinine (mg/dl) BUN:Creatinine (1:x) 74.00-106.00 7.00-18.00 0.50-1.30 10.00-20.00 194 43 6.2 6.9 Na (meq/l) K (meq/l) Cl (meq/l) CO2 (mmol/L) Ca (mg/dl) 136.00-145.00 3.50-5.10 98.00-107.00 21.00-32.00 8.50-10.10 137 5.1 108 19.7 8.2 PT (sec) PTT (sec) INR (PTT:PT) 9.80-11.60 24.30-30.10 0.90-1.10 12.1 30.8 1.1 Troponin I (ng/ml) Troponin T (ng/ml) CPK-MB (ng/ML) 0.02-0.05 0.40-2.10 0.50-3.60 8.24 8.81 2.7 Medication Medication Total Dose (Bolus/Oral) Medication Total Dosage/Unit 1% XYLOCAINE 20 mL VERSED 2 mg Medications (Bolus/Oral) Medication Time Given Dosage/Unit Administered By Reason 04/13/2017 10:03:48 VERSED 2 mg Lolly Flood AM 2 mg VERSED given in lab by Lolly Flood BSRN in Left Forearm via Peripheral IV. 04/13/2017 10:06:55 1% XYLOCAINE 20 mL Rene Aguilar AM 20 mL 1% XYLOCAINE given in lab by Rene Aguilar in Right Groin via Subcutaneous. Medication (Drip) Medication Time Given Dosage/Unit Concentration/Unit Diluent (ml) Solution IV Solutions 04/13/2017 9:41:47 AM 0 mL (IV) 500 NaCl .9 IV Solutions given in lab by Lolly Flood BSRN in Left Forearm via Peripheral IV. Pump/Drip Flow = 20 ml/hr using NaCl .9. Initial Case Assessment Cardiovascular HR Rhythm NIBP Chest Pain 73 Sinus 137/85 0 Edema Present Skin color Skin None Normal Warm Dry Circulatory - Right Pulses Dorsalis Pedis Femoral 1 2 Scale (0,1,2,3,4,d) Circulatory - Left Pulses Dorsalis Pedis Femoral 1 2 Scale (0,1,2,3,4,d) Neurological State Oriented to time-place- Alert Moves all extremities person Respiration - General Respiration Rate SpO2 (%) O2 (lpm) (B/min) 23 97 2 Final Case Assessment Cardiovascular HR Rhythm NIBP Chest Pain 77 Sinus 125/86 0 Edema Present Skin color Skin None Normal Warm Dry Circulatory - Right Pulses Dorsalis Pedis Femoral 1 2 Scale (0,1,2,3,4,d) Circulatory - Left Pulses Dorsalis Pedis Femoral 1 2 Scale (0,1,2,3,4,d) Neurological State Oriented to time-place- Alert Moves all extremities person Respiration - General Respiration Rate SpO2 (%) O2 (lpm) (B/min) 22 98 2 Chronological Log Time Study Chronological Log 9:41:16 Patient arrived via Bed. 9:41:16 Patient Name, D.O.B, / Armband Verified By R.N. 9:41:17 Consent signed by the physician and the patient and verified by the Student Advisor staff. 9:41:18 Pre-op and post- op instructions given; patient acknowledges understanding of instructions. 9:41:19 Verbal Stimulation=2 Physical Stimulation=2 Airway=2 Respiration=2 TOTAL=8. (0=absent, 1=li mited, 2=present) 9:41:21 Presedation assessment performed by Student Advisor RN. 9:41:38 Patient has been NPO for More than 6Hrs. 9:41:38 Skin Breakdown- none per patient. 9:41:41 Patient Warmer Placed on the Table. 9:41:44 Tabitha Prominences Protected 9:41:45 A # 20 IV was noted in the Forearm (left). Grade = 0 IV Solutions given in lab by Lolly Flood BSRN in Left Forearm via Peripheral IV. Pump/Dri p Flow = 20 ml/hr using 9:41:47 NaCl .9. 9:41:47 History and physical on the chart or being dictated. Assessment: Initial Case, HR=73 BPM, Rhythm=Sinus, YOXD=246/85 mmhg, Chest Pain=0, Edema=None, Color=Normal, Skin = Warm, Dry Right Pulses: Lyle Ped=1, Femoral=2 9:41:48 Left Pulses: Lyle Ped=1, Femoral=2 Neurological: State=Alert, Ox3, LUIS Respiration: Resp=23 B/min, SpO2=97 %, O2=2 lpm Vitals capture started with the following parameters, Patient=Adult, Interval=5 min, Initial Pr ehmlhw=194 mmHg, 9:49:44 Deflation Rate=5 mmHg, Cuff placed on Right Arm 9:50:25 HR=74 bpm, WIXU=116/85 mmhg, SpO2=98.0 %, Resp=29 B/min, Pain=0, Lindy=10, Frances=2 9:55:20 HR=72 bpm, HBIZ=286/89 mmhg, Resp=20 B/min, Pain=0, Lindy=10, Frances=2 9:56:26 Bilateral groins prepped with 2% chlorhexidine, and draped after a 3 minute waiting time. 10:00:18 Pressure channel 1 zeroed. 10:00:21 HR=73 bpm, EXUW=498/84 mmhg, SpO2=97.0 %, Resp=18 B/min, Pain=0, Lindy=10, Frances=2 10:00:26 MD paged 10:03:32 MD arrived. 10:03:48 2 mg VERSED given in lab by Lolly Flood BSRN in Left Forearm via Peripheral IV. 10:05:20 HR=82 bpm, FCZG=201/89 mmhg, Resp=13 B/min, Pain=0, Lindy=10, Frances=2 10:06:12 Reference ECG taken Time Out. Correct patient, correct procedure, correct physician, power injector loaded, or not loaded with contrast with 10:06:21 surgical team present. Time Out Concurred by MD and individual staff in procedure. 10:06:54 Case Start 10:06:55 20 mL 1% XYLOCAINE given in lab by Rene Aguilar in Right Groin via Subcutaneous. 10:07:40 Access site was Right Femoral Artery. 10:07:52 A SHEATH, FR6.5 PRELUDE 11CM FR 6.5 was advanced into the Fem Art (right) using the Percuta neous technique. A JL 4.0 INFINITI CATHETER FR 6 was advanced over a wire. OMNIPAQUE, 350 MG, 150ML 150ML was us ed for 10:09:04 injections. 10:09:49 The LCA was injected and visualized at various angles. OMNIPAQUE, 350 MG, 150ML 150ML used . Recorded Pressure: Ao, HR=75, Condition=Condition 1 10:10:04 (Aorta) Ao 132/79/100 10:10:21 HR=75 bpm, FUUF=846/83 mmhg, SpO2=98.0 %, Resp=20 B/min, Pain=0, Lindy=10, Frances=2 10:12:18 Catheter was removed A 3DRC INFINITI CATHETER FR 6 was advanced over a wire. OMNIPAQUE, 350 MG, 150ML 150ML was used for 10:13:12 injections. 10:13:55 The RCA was injected and visualized at various angles. OMNIPAQUE, 350 MG, 150ML 150ML used . 10:14:20 Catheter was removed A PIGTAIL STR INFINITI CATHETER FR 6 was advanced over a wire. OMNIPAQUE, 350 MG, 150ML 150ML w as used for 10:14:45 injections. 10:15:24 HR=80 bpm, OOZA=572/74 mmhg, SpO2=96.0 %, Resp=20 B/min, Pain=0, Lindy=10, Frances=2 Recorded Pressure: LV, HR=77, Condition=Condition 1 10:15:48 (Left Ventricle) LV 124/19/33 Recorded Pressure: LV, Ao, HR=79, Condition=Condition 1 10:16:02 (Left Ventricle) LV 119/25/34, (Aorta) Ao 57/-8/16 10:17:26 The LV was injected at 12 cc/sec for a total of 42. OMNIPAQUE, 350 MG, 150ML 150ML used. Recorded Pressure: LV, Ao, HR=78, Condition=Condition 1 10:17:47 (Left Ventricle) LV 108/19/27, (Aorta) Ao 121/62/84 10:18:08 Catheter was removed 10:18:55 An injection in the Fem Art (right) was made through the SHEATH, FR6.5 PRELUDE 11CM FR 6.5. 10:20:07 VASCADE, FR5 CLOSURE SYSTEM FR 5 placement in the Fem Art (right) 10:20:14 Case End 10:20:18 Cine recording checked. 10:20:19 No case complications noted. 10:20:21 HR=78 bpm, WFPI=354/86 mmhg, SpO2=98.0 %, Resp=13 B/min, Pain=0, Lindy=10, Frances=2 Assessment: Final Case, HR=77 BPM, Rhythm=Sinus, LDVH=926/86 mmhg, Chest Pain=0, Edema=None, Color=Normal, Skin = Warm, Dry Right Pulses: Lyle Ped=1, Femoral=2 10:20:27 Left Pulses: Lyle Ped=1, Femoral=2 Neurological: State=Alert, Ox3, LUIS Respiration: Resp=22 B/min, SpO2=98 %, O2=2 lpm 10:21:44 Sterile dressing applied to site 10:23:33 A Left Heart Cath was performed. 10:25:22 HR=75 bpm, WVRJ=911/80 mmhg, Resp=16 B/min, Pain=0, Lindy=10, Frances=2 10:28:35 Vitals capture stopped. 10:28:42 Bedside Report will be given. 10:32:[facility] - Cont[facility] Media Used In Study Contrast Total Opened (mL) Total Used (mL) Total Wasted (mL) Omnipaque 150 110 40 End Study - Maximum Contrast Load Max Contrast Load (mL) 86.1 End Study - Radiation Exposure Fluoro Time (minutes) 1.6 End Study - Patient Disposition Complications Transferred To Interventional Outcome No Telemetry Bed No attempt made
[2017-04-13] MEDS ORDERED: MISC INFORMATION XX ONE (10:45)
[2017-04-13] MEDS ORDERED: SODIUM CHLOR 0.9% 250 ML INJ 250 ML IV PRN (10:45)
[2017-04-13] MEDS ORDERED: ATROPINE SULFATE 1 MG/ML VIAL IV PRN (10:45)
--- NOTE | 2017-04-13 10:57 | MA ---
cc: MICHELLE PELAYO GLEN DATE 04/13/2017 PROCEDURE Left heart catheterization, selective coronary angiography, left ventriculography. PROCEDURE NOTE The patient was brought to the cardiac catheterization laboratory in a fasting state after having signed informed consent. The right groin was prepped and draped as per policy and anesthetized with 1% lidocaine. Arterial access was obtained via the right femoral artery and a 6-Lithuanian sheath placed. Coronary arteriography was performed using 6-Lithuanian Shweta left 4.0 and right progressive catheters. Left ventriculography was done using a standard 6-Lithuanian pigtail. There were no apparent immediate complications. His arteriotomy site was closed with Vascade with the achievement of good hemostasis. HEMODYNAMIC DATA Left ventricle 108 with an end-diastolic pressure of 20. Aorta 121/62 with a mean of 84. There was no significant transvalvular aortic gradient on pullback of the pigtail catheter. CORONARY ARTERIOGRAPHY The left main is a fairly large caliber vessel which has eccentric 60-65% distal stenosis. The ostium of the left main also may have up to 40-50% stenosis. The left anterior descending is a relatively small caliber and diffusely diseased vessel. There is likely up to 60% ostial to proximal disease, and eccentric 70-80% stenosis in the distal third of the proximal LAD. The mid to distal LAD is diffusely diseased likely up to 30% severity. The LAD gives rise to tiny diagonals, all of which have probably severe ostial disease. The left circumflex is a fairly large vessel which is also diffusely diseased. There may be a totally occluded first obtuse marginal arising from the proximal left circumflex. The distal left circumflex has 30-40% stenosis. A very small obtuse marginal arising from the mid left circumflex has severe ostial disease. The right coronary artery is diffusely diseased. It is likely totally occluded distally after the takeoff of the posterior descending artery which is severely and diffusely diseased with at least 95% stenosis in its mid to distal portion. No definite right to left collaterals are seen. LEFT VENTRICULOGRAPHY Contrast injection of the left ventricle reveals severe inferior hypokinesis, mid to distal anterior akinesis, and possibly a small area of apical dyskinesis. Ejection fraction is roughly estimated at 25%. CONCLUSIONS 1. Moderate to severe left main disease, moderate to severe three-vessel coronary artery disease. 2. Severely reduced left ventricular systolic function with ejection fraction estimated at 25%. DISCUSSION The patient will be referred for possible bypass surgery, although he is overall a fairly poor candidate for surgical intervention. Target vessels are quite poor. His ejection fraction appears to be severely reduced. MD JODIE Martinez/CHANG /10:26 AM /10:37 AM MTDMagdalena
[2017-04-13] MEDS ORDERED: IOHEXOL 350 MG/ML 100 ML BTL (for Cath Lab) OTHER ONE (12:07)
[2017-04-13] MEDS ORDERED: IOHEXOL 350 MG/ML 50 ML BTL (for Cath Lab) OTHER ONE (12:07)
[2017-04-13] MEDS: SODIUM CHLORIDE 0.9% FLUSH 10 ML FLUSH IV FLUSH SCH ×2 (13:08→20:55)
--- NOTE | 2017-04-13 13:45 | EKG ---
Date Performed: 04/13/2017 Time Performed: 07:27:30 PTAGE: 56 years EKG: Sinus rhythm WITH FIRST DEGREE AV BLOCK BORDERLINE LEFT AXIS DEVIATION POSSIBLE LEFT VENTRICULAR HYPERTROPHY MODE RATE T-WAVE ABNORMALITY, CONSIDER ANTEROLATERAL ISCHEMIA ABNORMAL ECG PREVIOUS TRACING : 04/13/2017 02.37 DOCTOR: Glenroy Camargo Interpretating Date/Time 04/13/2017 13:41:55
--- NOTE | 2017-04-13 13:52 | EKG ---
Date Performed: 04/13/2017 Time Performed: 02:37:52 PTAGE: 56 years EKG: Sinus rhythm with borderline 1st degree A-V block. Leftward axis Left ventricular hypertrophy Lateral T wave king ges are probably due to ventricular hypertrophy Abnormal ECG PREVIOUS TRACING : 04/12/2017 17.54 DOCTOR: Glenroy Camargo Interpretating Date/Time 04/13/2017 13:45:06
[2017-04-13 14:03] LABS: APTT (PATIENT) 27.6 SEC (24.3-30.1)
--- NOTE | 2017-04-13 14:07 | EKG ---
Date Performed: 04/12/2017 Time Performed: 17:54:32 PTAGE: 56 years EKG: ATRIAL FIBRILLATION WITH RAPID VENTRICULAR RESPONSE VOLTAGE CRITERIA FOR LVH INFERIOR MYOCA RDIAL INFARCTION MODERATE T-WAVE ABNORMALITY, CONSIDER LATERAL ISCHEMIA ABNORMAL ECG PREVIOUS TRACING : 04/08/2017 09.04 DOCTOR: Glenroy Camargo Interpretating Date/Time 04/13/2017 13:58:17
[2017-04-13 14:27] LABS: CREATINE KINASE 225 U/L (39-308)
[2017-04-13 14:46] LABS: CKMB 6.1 NG/ML (0.5-3.6)
--- NOTE | 2017-04-13 16:07 | PD.CAR.PN ---
CVT Progress Note Subjective/Hospital Course: sts data discussed with pt RISK SCORES About the STS Risk Calculator Procedure: CAB Only Risk of Mortality: 5.058% Morbidity or Mortality: 34.408% Long Length of Stay: 17.361% Short Length of Stay: 12.243% Permanent Stroke: 1.67% Prolonged Ventilation: 26.884% DSW Infection: 2.037% Renal Failure: N/A Reoperation: 11.321% Objective: Vital Signs Date Time Temp Pulse Resp B/P (MAP) Pulse Ox O2 Delivery O2 Flow Rate FiO2 04/13/17 06:00 73 04/13/17 04:11 99 Nasal Cannula 3.00 04/13/17 04:00 98.4 72 18 131/77 (95) 99 04/13/17 04:00 72 04/13/17 02:00 71 04/13/17 00:00 79 04/13/17 00:00 98.2 89 21 140/70 (93) 100 04/12/17 22:00 99.9 89 21 163/93 (116) 96 04/12/17 22:00 89 04/12/17 21:31 84 18 119/68 (85) 97 Nasal Cannula 2.00 04/12/17 20:24 122 18 129/72 (91) 99 Nasal Cannula 2.00 04/12/17 18:32 98 Nasal Cannula 2.00 04/12/17 18:32 103 16 149/87 (107) 99 Nasal Cannula 2.00 04/12/17 18:32 100 16 150/74 (99) 95 Nasal Cannula 2.00 04/12/17 18:00 99 16 96 Nasal Cannula 2.00 04/12/17 17:24 98.4 111 26 142/87 (105) 99 Room Air Labs: Laboratory Tests Test 04/13/17 12:30 Activated Partial Thromboplast Time 27.6 SEC (24.3-30.1) Total Creatine Kinase 225 U/L (39-308) Creatine Kinase MB 6.1 NG/ML (0.5-3.6) Troponin I 4.99 NG/ML (0.02-0.05) Result Diagram: 04/13/17 0328 04/13/17327 Lottie Monteiro Apr 13, 2017 16:07
[2017-04-13] MEDS ORDERED: SODIUM CHLOR 0.9% 1000 ML INJ 1,000 ML OTHER PRN ×2 (17:19)
[2017-04-13] MEDS ORDERED: SODIUM CHLOR 0.9% 1000 ML INJ 1,000 ML IV PRN (17:19)
[2017-04-13] MEDS ORDERED: ALBUMIN 25% INJ 100 ML IV PRN (17:30)
[2017-04-13] MEDS ORDERED: ACETAMINOPHEN 325 MG TAB PO PRN (17:30)
[2017-04-13] MEDS ORDERED: MANNITOL 12.5 GM/50 ML VIAL IV PRN (17:30)
[2017-04-13] MEDS ORDERED: SODIUM CHLORIDE 0.9% FLUSH 10 ML FLUSH IV FLUSH PRN (17:30)
[2017-04-13] MEDS ORDERED: HEPARIN SODIUM - IV 10,000 UNITS/10 ML VIAL PRN (17:30)
[2017-04-13] MEDS ORDERED: ONDANSETRON HCL 4 MG/2 ML VIAL IV PUSH PRN (17:30)
[2017-04-13] MEDS ORDERED: diphenhydrAMINE HCL 25 MG CAP PO PRN (17:30)
[2017-04-13] MEDS ORDERED: HEPARIN SODIUM - IV 10,000 UNITS/10 ML VIAL IV FLUSH PRN (17:30)
[2017-04-13] MEDS ORDERED: GENTAMICIN SULFATE (DIALYSIS USE ONLY) 20 MG/2 ML VIAL OTHER PRN (17:30)
[2017-04-13] MEDS ORDERED: cloNIDine HCL 0.1 MG TAB PO PRN (17:30)
[2017-04-13] MEDS ORDERED: NITROGLYCERIN 0.4 MG SL 25 TABS/BTL SL PRN (17:30)
--- NOTE | 2017-04-13 18:37 | RADRPT ---
EXAM DATE/TIME: 04/13/2017 17:44 [facility] COMPARISON: No previous studies available for comparison. INDICATIONS : PreOp Cardiac Surgery MEDICAL HISTORY : Myocardial infarction. Congestive heart failure. Hypercholesterolemia. Glasses. Dentures. Numbness. H yperlipidemia. Hypertension. Dyspnea. Renal failure. Dialysis. Diabetes. SURGICAL HISTORY : Bilateral cataract extraction. Atriovenous shunt. Right fifth toe removed. ENCOUNTER: Initial ACUITY: 1 day PAIN SCORE: 0/10 LOCATION: Bilateral legs. TECHNIQUE: Venous ultrasound of the left and right leg was performed from the inguinal ligament to the proximal calf. Real-time, color Doppler and spectral tracing, compression and augmentation techniques were us ed. FINDINGS: RIGHT LEG: There is normal compressibility of the deep venous system from the inguinal region to the proximal ca lf. No echogenic clot is seen in the lumen of the common femoral, femoral, popliteal, and posterior tibial veins. There is a normal response of the venous system to proximal and distal augmentation an d respiration. Iliac artery opened and patent with normal flow LEFT LEG: There is normal compressibility of the deep venous system from the inguinal region to the proximal ca lf. No echogenic clot is seen in the lumen of the common femoral, femoral, popliteal, and posterior tibial veins. There is a normal response of the venous system to proximal and distal augmentation an d respiration. Iliac artery patent CONCLUSION: Normal examination. Edward Mcallister MD on April 13, 2017 at 18:34 Board Certified Radiologist. This report was verified electronically.
--- NOTE | 2017-04-13 18:38 | RADRPT ---
EXAM DATE/TIME: 04/13/2017 17:22 [facility] COMPARISON: No previous studies available for comparison. INDICATIONS : PreOp Cardiac Surgery MEDICAL HISTORY : Myocardial infarction. Congestive heart failure. Hypercholesterolemia. Glasses. Dentures. Numbness. H yperlipidemia. Hypertension. Dyspnea. Renal failure. Dialysis. Diabetes. SURGICAL HISTORY : Bilateral cataract extraction. Atriovenous shunt. Right fifth toe removed. ENCOUNTER: Initial ACUITY: 1 day PAIN SCORE: 0/10 LOCATION: Bilateral neck PEAK SYSTOLIC VELOCITIES (cm/sec): ICA/CCA RATIO: Right: 1.0 Left: 1.4 ICA: Right: 82.3 Left: 81.3 CCA: Right: 81.0 Left: 57.8 ECA: Right: 92.7 Left: 71.1 VERTEBRAL: Right: 38.2 antegrade Left: 68.1 antegrade Elevated flow velocities and ICA/CCA ratios have been found to correlate with increased degrees of vessel stenosis, calculated as percentage of diameter relative to a normal segment of distal ICA/CCA FINDINGS: RIGHT CAROTID: No significant stenosis is visualized. The waveforms are within normal limits. Minimal nonstenotic p laquing at the bulb and initial segment of the internal carotid. Portions are calcific LEFT CAROTID: No significant stenosis is visualized. The waveforms are within normal limits. Minimal nonstenotic p laquing soft at the bulb and initial segment the internal carotid VERTEBRAL ARTERIES: Antegrade flow is seen in both vertebral arteries. MISCELLANEOUS: None. CONCLUSION: No evidence of anatomic or physiologic stenosis. Minimal soft and calcific plaquing of the bulbs and initial segment the internal carotid. Edward Mcallister MD on April 13, 2017 at 18:35 Board Certified Radiologist. This report was verified electronically.
--- NOTE | 2017-04-13 18:54 | HHI.CCPN ---
Subjective Remarks/Hospital Course History of Present Illness 56-year-old male comes with history of substernal chest pain radiating to his right shoulder. Patient says that he's been getting on and off chest pain for past 3-4 days. He has end-stage renal disease with hemodialysis dependence. He was getting hemodialyzed today when he started getting the pain again. He was given 3 sublingual nitroglycerin at the dialysis Center and he was recommended to come to the emergency room. Patient did not want to come at that time and went home instead. At home he continued to get the chest pain and decided to come in. No syncopal episode. Patient says that he had a stress test 2 years ago. No history of coronary artery disease. He was atrial fibrillation on the monitor in the emergency department. No history of previous A. fib. His initial troponin was 10 and the patient is admitted to ICU as a non-ST elevation myocardial infarction. Subjective: 04/13: Tmax 99.9. The patient underwent left heart catheterization today which revealed EF of 20% and moderate to severe coronary artery disease.CTS has been consulted for possible CABG Objective Vital Signs Date Time Temp Pulse Resp B/P (MAP) Pulse Ox O2 Delivery O2 Flow Rate FiO2 04/13/17 16:00 97.8 69 20 131/77 (95) 99 04/13/17 04:11 Nasal Cannula 3.00 Intake and Output 04/13/17 04/13/17 04/14/17 08:00 16:00 00:00 Intake Total 150 ml 55 ml 475 ml Output Total 200 ml 350 ml Balance -50 ml 55 ml 125 ml Result Diagram: 04/13/17 0328 04/13/17 0328 Imaging Last 24 hours Impressions Chest X-Ray 04/12/17 7358 Signed Impressions: Service Date/Time: Wednesday, April 12, 2017 18:04 - CONCLUSION: No acute cardiopulmonary disease. Rachell Hernandez MD Objective Remarks GENERAL: Well-nourished, well-developed patient in no apparent distress SKIN: Warm and dry. HEAD: Normocephalic. EYES: No scleral icterus. No injection or drainage. NECK: Supple, trachea midline. No JVD or lymphadenopathy. CARDIOVASCULAR: Regular rate and rhythm without murmurs, gallops, or rubs. RESPIRATORY: Breath sounds equal bilaterally. No accessory muscle use. GASTROINTESTINAL: Abdomen soft, non-tender, nondistended. Morbidly obese MUSCULOSKELETAL: No cyanosis, or edema. Femoral right groin areas soft no hematoma bleeding erythema noted BACK: Nontender without obvious deformity. NEURO EXAM: GCS: M 6 V 5 E 4 Mental Status: The patient is alert and oriented to person, place, and time with normal speech. Cranial Nerves: Visual acuity intact bilaterally. Visual jacob normal in all quadrants. Pupils are round, reactive to light. Extraocular movements are intact without ptosis. Hearing is normal bilaterally. Voice is normal. Tongue protrudes midline and moves symmetrically. Reflexes: Biceps, patellar, and Achilles are 2/4 bilaterally. No clonus. Procedures 04/13-left heart catheterization A/P Assessment and Plan Non-ST elevation myocardial infarction - Heparin drip - Monitor trends of troponins - Serial EKGs - Cardiology following- Dr. Grossman - Metoprolol 25 every 6 hours - Nitro paste - Atorvastatin - Aspirin - 04/13 Cardiac catheterization-moderate to severe the vessel coronary artery disease. Moderate to severe left main disease. Ejection fraction 20% -CTS consulted Diabetes mellitus - Resume diabetic diet - Insulin sliding scale Hypertension - Hydralazine - Metoprolol - Hold lisinopril End-stage renal disease - HD per nephrology-Dr. Corona DVT GI prophylaxis - Teds SCDs - Heparin infusion discontinued - Pepcid Critical Care: my billing statement This patient remains critically ill with one or more organ systems which are or may become a threat to life. I have spent in excess of 20 minutes discontinuously in the care and management of this patient. This time is exclusive of procedures, and includes, but is not limited to, evaluation of the patient, review of the medical record, discussions with family, consultants, nursing staff, or respiratory therapy, and documentation in the medical record. Physician Jil Jordan MD Apr 13, 2017 18:53
--- NOTE | 2017-04-13 19:05 | MB ---
cc: ZAINAB GIBSON MD DATE OF CONSULTATION 04/13/2017 REASON FOR CONSULTATION End-stage renal disease on hemodialysis for management. HISTORY OF PRESENT ILLNESS This is a very pleasant 56-year-old male known to me from before with past medical history of hypertension, chronic anemia, diabetes mellitus, end-stage renal disease on hemodialysis three times per week came to the hospital with complaint of recurrent retrosternal chest pain. I was called to see the patient for management of hemodialysis. He has been on hemodialysis Tuesday, and Tuesday. The patient started having chest pain over the weekend while he was with his sister and then it was getting worse and he had more chest pain when he went for dialysis yesterday. He was given nitroglycerin but his pain was getting worse so he was sent to the hospital. The patient had cramping at the end of dialysis yesterday and he did not complete the dialysis and he was sent here to the hospital. It was found that he has been in atrial fibrillation and had elevated troponins and he was diagnosed with non-ST elevation ND. Cardiology was consulted and he underwent cardiac catheterization this morning. The cardiac catheterization showed that the patient has low ejection fraction and significant coronary artery disease and cardiac surgery was consulted for possible CABG. The patient denies any chest pain now. He has mild shortness of breath. No nausea or vomiting. No abdominal pain. He currently is with nasal cannula. PAST MEDICAL HISTORY 1. Hypertension. 2. Diabetes mellitus. 3. Chronic anemia. 4. End-stage renal disease on hemodialysis 3 times per week. 5. Hyperlipidemia. PAST SURGICAL HISTORY 1. History of cataract surgery. 2. Right fifth toe amputation. REVIEW OF SYSTEMS The patient has generalized weakness, feeling tired. Has shortness of breath on exertion going on for last [id number] days associated with mild shortness of breath. There is no nausea or vomiting. No abdominal pain. No history of diarrhea. No history of fever. SOCIAL HISTORY The patient is single. There is no history of smoking or alcoholism. FAMILY HISTORY Noncontributory. ALLERGIES NO KNOWN DRUG ALLERGIES. MEDICATIONS Currently he is on: 1. Carvedilol 25 mg b.i.d. 2. Clonidine 0.1 mg b.i.d. 3. Lopressor 50 mg b.i.d. 4. 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 5. Aspirin 81 mg daily. 6. Valium on-call. 7. Cozaar 50 mg once a day. 8. Pravachol 80 mg daily. 9. Aspirin 325 mg once a day. 10. PhosLo 1334 mg t.i.d. 11. Insulin aspart sliding scale. 12. Neurontin 100 mg t.i.d. 13. Apresoline 50 mg t.i.d. 14. Xanax as needed. PHYSICAL EXAMINATION GENERAL: The patient is awake and alert. He is not in any acute distress. VITAL SIGNS: His last blood pressure 131/77, temperature is 98.4, oxygen saturation on 3 liters nasal cannula 99%. HEENT: Pupils are mid constricted. Nonicteric sclerae. Conjunctivae pale. NECK: Supple. JVD is not elevated. LUNGS: The patient has bilateral good air entry with some basilar rales and scattered wheezing. HEART: S1-S2. Regular rhythm. ABDOMEN: Soft. Lax. Distended. There is no tenderness. Bowel sounds positive. EXTREMITIES: He has mild edema. LABORATORY DATA Investigations, WBC 9.3, hemoglobin 10.7, platelet count of 112, neutrophils 75. Sodium 137, potassium 5.1, chloride 108, bicarb 19.7, BUN 43, creatinine 6.2. Calcium 8.2. Magnesium 2.0. Bilirubin is 0.5. AST, ALT normal. Total creatinine kinase 225. Troponin I is 4.9. Albumin is 3.1. Total protein 6.5. TSH is 2.2. IMAGING STUDIES The patient has chest x-ray done which shows lung jacob clear. Cardiac catheterization was done which shows that he has moderate to severe left main disease, moderate to severe three-vessel disease, severely reduced left ventricular ejection fraction with estimated ejection fraction of 25%. ASSESSMENT/PLAN 1. Non-ST elevation ND. 2. Congestive heart failure. 3. End-stage renal disease on hemodialysis. 4. History of hypertension. 5. Diabetes mellitus. 6. Hyperlipidemia. The patient has significant ischemic heart disease and low ejection fraction to be evaluated by the cardiac surgery for possible bypass surgery. He had a cardiac cath done today. The potassium was better compared to yesterday. He is not in gross fluid overload status. So we will dialyze him in the morning. I already informed the dialysis to dialyze him first thing in the morning and I am writing the orders and we will give him some Epogen with the dialysis. I will check the phosphorus level. Thank you for the consultation and I will follow the patient while he is in the hospital. MD VELASQUEZ HernadezJ/KK /5:13 PM /6:29 PM
--- NOTE | 2017-04-13 20:49 | MB ---
cc: MARITZA MARRUFO MD DATE OF : 62 DATE OF CONSULTATION: 04/13/2017 REASON FOR CONSULTATION: Evaluate for coronary artery bypass grafting HISTORY OF PRESENT ILLNESS: The patient is a 56 year-old male known to Dr. Hernandez's office, who was apparently undergoing dialysis on April 12, when he developed some chest tightness. He had been complaining of some chest tightness off and on four days prior to his dialysis and has been short of breath off and on for a couple of weeks. He denied having any nausea or diaphoresis. The chest discomfort would come and go, and he described them as twinges in his chest. Upon arrival his troponin was elevated at 9.9. He was ruled in for a non STEMI. The patient underwent cardiac catheterization by Dr. Aguilar which showed a 60% left main disease. Proximal LAD 70-80%, diagonal 90%. The OM 100%. The RCA 100%. We were consulted to evaluate for coronary artery bypass grafting. PAST MEDICAL HISTORY: 1. Coronary artery disease with an CA in 2010. 2. End-stage renal disease on dialysis Tuesday, and Tuesday by Dr. Corona, maintenance custodian. 3. Diabetes mellitus. 4. Hypertension. 5. Hyperlipidemia. PAST SURGICAL HISTORY: 1. AV graft right forearm. ALLERGIES: None known. HOME MEDICATIONS: 1. Hydralazine. 2. Simvastatin. 3. Losartan. 4. Aspirin. 5. Chloride. 6. Clonidine. FAMILY HISTORY: Mother age 54 from diabetes and complications of sepsis. Father age 71 from [place]. SOCIAL HISTORY: The patient is single, disabled. No tobacco, no alcohol, no illicit drug use. REVIEW OF SYSTEMS: GENERAL: No night sweats, fever, heat or cold intolerance. SKIN: No psoriasis, itching or hives. HEENT: No blurred vision, hearing loss. RESPIRATORY: Positive for shortness of breath. CARDIOVASCULAR: As above in the HPI. GASTROINTESTINAL: No diarrhea or vomiting. GENITOURINARY: No burning, frequency, urgency. DIRECTOR COLLEGE: No history of TIA, CVA, seizure disorder. ENDOCRINOLOGY: Positive for diabetes. PHYSICAL EXAMINATION: VITAL SIGNS: Blood pressure 130/70, heart rate 70, O2 sat 99% on three liters. GENERAL: The patient is awake, alert, in no acute distress. HEAD: Normocephalic, atraumatic. Pupils equal and reactive. Oral mucosa pink and moist. NECK: Supple. No JVD. He has a full guerin. HEART: Heart sounds S1-S2, slightly irregular, no audible gallops or rubs. LUNGS: Diminished at the bases, otherwise clear to auscultation. He does have a bruit to the right A-V fistula on the right forearm. ABDOMEN: Obese, soft, nontender. No masses or organomegaly. EXTREMITIES: Reveal no clubbing, cyanosis or edema. He does have very faint palpable pulses and dorsalis pedis bilaterally with chronic venous stasis. LABORATORY WORK: Hemoglobin 10, hematocrit 31, white cell count of 9.3, platelet count 112. Sodium 137, potassium 5.1, BUN 43, creatinine 6.24. Troponin 9.94, down to 4.99. Triglycerides 87, cholesterol 103, LDL 46. INR 1.1. MRSA nondetected. RADIOLOGIC STUDIES: Chest x-ray was unremarkable. EKG: Sinus rhythm with some T-wave abnormalities in the lateral leads. IMPRESSION This is a 56 year-old male with history of prior CA, coronary artery disease with status post heart catheterization, multivessel disease. Ejection fraction 25%. The cardiac films will need to be evaluated by Dr. Maritza Marrufo to be evaluated for possible candidate for coronary artery bypass grafting. In the meantime, will order ultrasound of the carotids and lower extremity vein mapping. Again, the evaluation as per Dr. Marrufo. Dictated by: ALONDRA Cardenas Agree with above. After reviewing his coronary angiograms and medical history, I do not think that he is a candidate for coronary revascularization surgery given his severe left ventricular dysfunction and lack of suitable distal targets. Unfortunately, his only available option is maximizing medical therapy. Thank you for allowing me to participate in the care of this patient. Maritza SÁNCHEZ /5:51 PM /7:48 AM VIVIEN
[2017-04-13] MEDS ORDERED: METOPROLOL TARTRATE 50 MG TAB PO SCH (21:00)
--- NOTE | 2017-04-13 23:03 | RADRPT ---
EXAM DATE/TIME: 04/13/2017 17:56 [facility] COMPARISON: No previous studies available for comparison. INDICATIONS : PreOp Cardiac Surgery MEDICAL HISTORY : Myocardial infarction. Congestive heart failure. Hypercholesterolemia. Glasses. Dentures. Numbness. H yperlipidemia. Hypertension. Dyspnea. Renal failure. Dialysis. Diabetes. SURGICAL HISTORY : Bilateral cataract extraction. Atriovenous shunt. Right fifth toe removed. ENCOUNTER: Initial ACUITY: 1 day PAIN SCORE: 0/10 LOCATION: Bilateral legs. GREATER SAPHENOUS VEIN THIGH: PROXIMAL: Right 9 mm Left 7 mm MID: Right 2 mm Left 2 mm DISTAL: Right 2 mm Left 2 mm CALF: PROXIMAL: Right 2 mm Left 2 mm MID: Right 1 mm Left 2 mm DISTAL: Right 1 mm Left 1 mm FINDINGS: The venous system of the lower extremities are patent by color Doppler imaging. Measurements of the leg veins (in mm) are listed above. CONCLUSION: 1. Venous mapping as above Jamal Nino MD on April 13, 2017 at 23:00 Board Certified Radiologist. This report was verified electronically.
[2017-04-14] VITALS (15 sets, daily range): BP systolic 108–166; BP diastolic 57–84; PULSE 62–115; RESP 10–21; TEMP 97.7–98.3; O2SAT 97–100
[2017-04-14] MEDS: CHLORHEXIDINE GLUCONATE 2 % 1 PACK (2 CLOTHS) TOP SCH (04:00)
--- NOTE | 2017-04-14 07:13 | PD.CARD.PN ---
Subjective Subjective Remarks Feels "good". No further CP. No dyspnea, palpitations, dizziness. Objective Medications Item Value Date Time Metoprolol 50 mg 04/13/172099 Tartrate BID/PO 04/13/172054 (Lopressor) Hydralazine HCl 50 mg 04/13/17899 (Apresoline) TID/PO 04/13/17 173 Losartan Potassium 50 mg 04/13/17899 (Cozaar) DAILY/PO 04/13/17925 Pravastatin Sodium 80 mg 04/13/17899 (Pravachol) DAILY/PO 04/13/17925 Aspirin 325 mg 04/13/17899 (Ecotrin Ec) DAILY/PO 04/13/17926 Nitroglycerin 1 inch 04/13/17899 (Nitroglycerin DAILY/TOP 04/13/17926 2% Oint) Nitroglycerin 1 inch 04/13/17 0000 (Nitroglycerin Q6HR/TOPICAL 2% Oint) Carvedilol 25 mg 04/12/172099 (Coreg) BID/PO 04/13/172054 Clonidine 0.1 mg 04/12/172099 (Catapres) BID/PO 04/13/172054 Current Medications Medications (Trade) Dose Ordered Sig/Taj Route Start Time Stop Time Status Last Admin (NS Flush) 2 ml UNSCH PRN IVF 04/12/17 18:00 Nitroglycerin/ Dextrose 250 ml @ 1.5 mls/hr TITRATE PRN IV 04/12/17 19:30 (Phoslo) 1,334 mg TID PO 04/13/17 09:00 04/13/17 17:36 (Coreg) 25 mg BID PO 04/12/17 21:00 04/13/17 20:55 (Catapres) 0.1 mg BID PO 04/12/17 21:00 04/13/17 20:55 (Neurontin) 100 mg TID PO 04/13/17 09:00 04/13/17 17:36 (Apresoline) 50 mg TID PO 04/13/17 09:00 04/13/17 17:36 (Cozaar) 50 mg DAILY PO 04/13/17 09:00 04/13/17 09:26 (Pravachol) 80 mg DAILY PO 04/13/17 09:00 04/13/17 09:26 (NS Flush) 2 ml BID IV FLUSH 04/12/17 21:00 04/13/17 20:55 (NS Flush) 2 ml UNSCH PRN IV FLUSH 04/12/17 20:15 (Ecotrin Ec) 325 mg DAILY PO 04/13/17 09:00 04/13/17 09:27 (Nitroglycerin 2% Oint) 1 inch DAILY TOP 04/13/17 09:00 04/13/17 09:27 (Morphine Inj) 2 mg Q3H PRN IV PUSH 04/12/17 20:15 04/13/17 00:18 (Tylenol) 650 mg Q6H PRN PO 04/12/17 20:15 (Colace) 100 mg BID PRN PO 04/12/17 20:15 (Xanax) 0.25 mg Q8H PRN PO 04/12/17 20:15 04/12/17 22:35 (Zofran Inj) 4 mg Q6H PRN IV PUSH 04/12/17 20:15 Miscellaneous Information 1 Q361D XX 04/12/17 20:15 04/12/17 22:00 (Chlorhexidine 2% Cloth) 3 pack Taper DAILY@04 TOP 04/13/17 04:00 04/09/18 03:59 04/14/17 04:00 (Chlorhexidine 2% Cloth) 3 pack UNSCH PRN TOP 04/12/17 20:15 (D50w (Vial) Inj) 50 ml UNSCH PRN IV PUSH 04/12/17 21:15 (Glucagon Inj) 1 mg UNSCH PRN OTHER 04/12/17 21:15 (NovoLOG SUPPLEMENTAL SCALE) 1 ACHS SLIDING SCALE SQ 04/13/17 08:00 04/13/17 21:00 (Nitroglycerin 2% Oint) 1 inch Q6HR TOPICAL 04/13/17 00:00 04/13/17 17:39 (Benadryl) 50 mg PRESSURE SEALER AND TESTER PO 04/13/17 09:00 04/17/17 08:59 (Valium) 10 mg PRESSURE SEALER AND TESTER PO 04/13/17 09:00 04/17/17 08:59 (Atropine Inj) 0.5 mg UNSCH PRN IV 04/13/17 10:45 (Lopressor) 50 mg BID PO 04/13/17 21:00 04/13/17 20:55 Sodium Chloride 1,000 ml @ 0 mls/hr Q0M PRN OTHER 04/13/17 17:19 (Heparin Inj) 8,000 units UNSCH PRN IV FLUSH 04/13/17 17:30 Sodium Chloride 1,000 ml @ 200 mls/hr Q5H PRN IV 04/13/17 17:19 Sodium Chloride 1,000 ml @ 0 mls/hr Q0M PRN OTHER 04/13/17 17:19 (Mannitol Inj) 12.5 gm UNSCH PRN IV 04/13/17 17:30 Albumin Human 100 ml @ 60 mls/hr UNSCH PRN IV 04/13/17 17:30 (NS Flush) 5 ml UNSCH PRN IV FLUSH 04/13/17 17:30 (Heparin Inj) UNSCH PRN .XX 04/13/17 17:30 (Gentamicin (Dialysis) Inj) 20 mg UNSCH PRN OTHER 04/13/17 17:30 (Zofran Inj) 4 mg UNSCH PRN IV PUSH 04/13/17 17:30 (Tylenol) 650 mg UNSCH PRN PO 04/13/17 17:30 (Benadryl) 25 mg UNSCH PRN PO 04/13/17 17:30 (Nitrostat Sl) 0.4 mg UNSCH PRN SL 04/13/17 17:30 (Catapres) 0.1 mg UNSCH PRN PO 04/13/17 17:30 (Epogen Inj) 6,000 units UNSCH PRN IV PUSH 04/13/17 17:30 (Gelfoam 12 Mm/7 Mm Top) 1 foam UNSCH PRN TOP 04/13/17 17:30 Vital Signs / I&O Vital Signs Date Time Temp Pulse Resp B/P (MAP) Pulse Ox O2 Delivery O2 Flow Rate FiO2 04/14/17 04:00 66 04/14/17 04:00 97.9 67 10 108/57 (74) 99 04/14/17 02:00 66 04/14/17 00:30 100 Nasal Cannula 2.00 04/14/17 00:00 62 04/14/17 00:00 97.7 62 15 109/68 (82) 100 04/13/17 22:00 66 04/13/17 20:00 67 04/13/17 20:00 98.0 67 19 109/64 (79) 99 04/13/17 18:00 67 04/13/17 16:00 69 04/13/17 16:00 97.8 69 20 131/77 (95) 99 04/13/17 14:00 67 04/13/17 12:00 66 04/13/17 12:00 98.0 66 15 88/53 (65) 100 04/13/17 08:00 66 04/13/17 08:00 98.3 66 21 94/55 (68) 97 I/O 04/13/17 04/13/17 04/13/17 04/14/17 04/14/17 04/14/17 07:00 15:00 23:00 07:00 15:00 23:00 Intake Total 150 ml 55 ml 475 ml Output Total 200 ml 350 ml Balance -50 ml 55 ml 125 ml Intake Oral 50 ml 475 ml IV Total 100 ml 55 ml Output Urine Total 200 ml 350 ml # Bowel Movements 0 0 Physical Exam GENERAL: Well developed, well nourished. No acute distress. HEENT: Jugular venous pressure difficult to assess. CHEST: Lungs clear to auscultation anteriorly. CARDIAC: Regular rate and rhythm without S3, S4, or murmur. ABDOMEN: Soft, nontender, no hepatosplenomegaly. Bowel sounds present. EXTREMITIES: No clubbing, cyanosis, or edema. Laboratory Laboratory Tests Test 04/13/17 12:30 Activated Partial Thromboplast Time 27.6 SEC Total Creatine Kinase 225 U/L Creatine Kinase MB 6.1 NG/ML Troponin I 4.99 NG/ML Assessment and Plan Problem List: (1) Non-STEMI (non-ST elevated myocardial infarction) ICD Codes: I21.4 - Non-ST elevation (NSTEMI) myocardial infarction Status: Acute Plan: Stable overnight. No further CP. Cardiac enzymes trending downward. REC continue current medical therapy except stop metoprolol as patient also on carvedilol await Dr. Tim's recommendation regarding possible CABG (2) Paroxysmal atrial fibrillation ICD Codes: I48.0 - Paroxysmal atrial fibrillation Status: Acute Plan: Remains in NSR. The atrial fib was in the setting of acute CT. Rec continue aspirin. Consider anticoagulation therapy as his thromboembolic risk is high with recurrent atrial fib. (3) Ischemic cardiomyopathy ICD Codes: I25.5 - Ischemic cardiomyopathy Status: Chronic Plan: EF ~25%. Overall compensated. No overt CHF. Rec continue beta darwin , ARB. (4) Hypertension ICD Codes: I10 - Hypertension Status: Chronic Plan: Stable. Normotensive on multidrug regimen. (5) Hyperlipidemia ICD Codes: E78.5 - Hyperlipidemia, unspecified Status: Chronic Plan: Acceptable lipid profile with LDL 46, HDL 40. Continue statin therapy. Code Status full code Discussed Condition With patient Problem Qualifiers (1) Hypertension: Qualified Codes: I10 - Essential (primary) hypertension (2) Hyperlipidemia: Qualified Codes: E78.2 - Mixed hyperlipidemia Rene Aguilar MD Apr 14, 2017 07:13
[2017-04-14 07:53] LABS: HEMATOCRIT 32.4 % (39.0-51.0); MEAN CELL VOLUME 97.6 FL (80.0-100.0); MEAN CORPUSCULAR HEMOGLOBIN 32.4 PG (27.0-34.0); MEAN CORPUSCULAR HGB CONC 33.2 % (32.0-36.0); PLATELET COUNT 130 TH/MM3 (150-450); RED BLOOD COUNT 3.32 MIL/MM3 (4.50-5.90); RED CELL DISTRIBUTION WIDTH 14.8 % (11.6-17.2); REVIEW FLAG FINAL; WHITE BLOOD COUNT 8.9 TH/MM3 (4.0-11.0)
[2017-04-14 08:34] LABS: BICARBONATE 17.6 MEQ/L (21.0-32.0); MAGNESIUM 2.3 MG/DL (1.5-2.5); POTASSIUM 5.8 MEQ/L (3.5-5.1)
[2017-04-14] MEDS: INSULIN ASPART SUPPLEMENTAL SCALE SQ SCH ×4 (08:45→21:00)
[2017-04-14] MEDS: GABAPENTIN 100 MG CAP PO SCH ×3 (08:45→18:23)
[2017-04-14] MEDS: CARVEDILOL 12.5 MG TAB PO SCH ×2 (09:00→19:42)
[2017-04-14] MEDS: NITROGLYCERIN 2% OINT 1 GM PACKET TOP SCH (09:00)
[2017-04-14] MEDS: hydrALAZINE HCL 50 MG TAB PO SCH ×3 (09:00→18:24)
[2017-04-14] MEDS: CALCIUM ACETATE 667 MG CAP PO SCH ×3 (09:00→18:23)
[2017-04-14] MEDS: cloNIDine HCL 0.1 MG TAB PO SCH ×2 (09:00→19:43)
[2017-04-14] MEDS: EPOETIN ALFA 10,000 UNITS/ML VIAL IV PUSH PRN (09:05)
[2017-04-14] MEDS: GELATIN 12 MM/7 MM FOAM TOP PRN (09:05)
[2017-04-14] MEDS: PRAVASTATIN SOD 80 MG TAB PO SCH (13:57)
[2017-04-14] MEDS: ASPIRIN EC 325 MG TABEC PO SCH (13:57)
[2017-04-14] MEDS: LOSARTAN 50 MG TAB PO SCH (13:57)
[2017-04-14] MEDS: NITROGLYCERIN 2% OINT 1 GM PACKET TOPICAL SCH ×2 (13:59)
[2017-04-14] MEDS: SODIUM CHLORIDE 0.9% FLUSH 10 ML FLUSH IV FLUSH SCH ×2 (13:59→19:43)
[2017-04-14] MEDS ORDERED: CLOPIDOGREL 75 MG TAB PO SCH (15:30)
[2017-04-14] MEDS: MORPHINE SULFATE 4 MG/ML INJ IV PUSH PRN ×2 (16:29→19:43)
[2017-04-14] MEDS ORDERED: AMIODARONE 150 MG/D5W 97 ML BOLUS 10 MINUTES IV ONE ×2 (17:15)
[2017-04-14] MEDS: AMIODARONE INJ 450 MG in D5W (EXCEL BAG) INJ 241 ML IV SCH (18:23)
--- NOTE | 2017-04-14 19:19 | HHI.CCPN ---
Subjective Remarks/Hospital Course History of Present Illness 56-year-old male comes with history of substernal chest pain radiating to his right shoulder. Patient says that he's been getting on and off chest pain for past 3-4 days. He has end-stage renal disease with hemodialysis dependence. He was getting hemodialyzed today when he started getting the pain again. He was given 3 sublingual nitroglycerin at the dialysis Center and he was recommended to come to the emergency room. Patient did not want to come at that time and went home instead. At home he continued to get the chest pain and decided to come in. No syncopal episode. Patient says that he had a stress test 2 years ago. No history of coronary artery disease. He was atrial fibrillation on the monitor in the emergency department. No history of previous A. fib. His initial troponin was 10 and the patient is admitted to ICU as a non-ST elevation myocardial infarction. Subjective: 04/13: Tmax 99.9. The patient underwent left heart catheterization today which revealed EF of 20% and moderate to severe coronary artery disease.CTS has been consulted for possible CABG 04/14: This afternoon, the patient complained of chest pain 6/10 concurrently A. fib RVR. The patient was given 2 mg of morphine IV push for resolution of symptoms. The patient continues on amiodarone infusion for rate control, hemodynamically stable. Objective Vital Signs Date Time Temp Pulse Resp B/P (MAP) Pulse Ox O2 Delivery O2 Flow Rate FiO2 04/14/17 18:23 112 147/86 04/14/17 12:00 98.3 14 100 04/14/17 09:50 Nasal Cannula 2.00 Intake and Output 04/14/17 04/14/17 04/14/17 07:59 15:59 23:59 Output Total 400 ml 1500 ml Balance -400 ml -1500 ml Result Diagram: 04/14/17 0500 04/14/17 0500 Imaging Last 24 hours Impressions Chest X-Ray 04/12/17 7097 Signed Impressions: Service Date/Time: Wednesday, April 12, 2017 18:04 - CONCLUSION: No acute cardiopulmonary disease. Rachell Hernandez MD Objective Remarks GENERAL: Well-nourished, well-developed patient on nasal cannula sitting up in bed SKIN: Warm and dry. HEAD: Normocephalic. EYES: No scleral icterus. No injection or drainage. NECK: Supple, trachea midline. No JVD or lymphadenopathy. CARDIOVASCULAR: Regular rate and rhythm without murmurs, gallops, or rubs. RESPIRATORY: Breath sounds equal bilaterally. No accessory muscle use. Clear to auscultation GASTROINTESTINAL: Abdomen soft, non-tender, nondistended. Morbidly obese MUSCULOSKELETAL: No cyanosis, or edema. Femoral right groin areas soft no hematoma bleeding erythema noted BACK: Nontender without obvious deformity. NEURO EXAM: GCS: M 6 V 5 E 4 Mental Status: The patient is alert and oriented to person, place, and time with normal speech. Cranial Nerves: Visual acuity intact bilaterally. Visual jacob normal in all quadrants. Pupils are round, reactive to light. Extraocular movements are intact without ptosis. Hearing is normal bilaterally. Voice is normal. Tongue protrudes midline and moves symmetrically. Reflexes: Biceps, patellar, and Achilles are 2/4 bilaterally. No clonus. Procedures 04/13-left heart catheterization A/P Assessment and Plan Non-ST elevation myocardial infarction A. fib RVR - Heparin drip - Monitor trends of troponins - Serial EKGs - Cardiology following- Dr. Grossman - Metoprolol 25 every 6 hours - Nitro paste - Atorvastatin - Aspirin - 04/13 Cardiac catheterization-moderate to severe the vessel coronary artery disease. Moderate to severe left main disease. Ejection fraction 20% -CTS consulted -04/14 Amiodarone bolus, followed by amiodarone infusion Diabetes mellitus - diabetic diet - Insulin sliding scale Hypertension - Hydralazine - Metoprolol - Hold lisinopril End-stage renal disease - HD per nephrology-Dr. Corona DVT GI prophylaxis - Teds SCDs -04/13 Heparin infusion discontinued, post cardiac cath - Pepcid Critical Care: Level III Physician Jil Jordan MD Apr 14, 2017 19:19
--- NOTE | 2017-04-14 21:34 | HHI.NPPN ---
Subjective History of Present Illness 56-year-old male known to me from before with past medical history of hypertension, chronic anemia, diabetes mellitus, end-stage renal disease on hemodialysis three times per week came to the hospital with complaint of recurrent retrosternal chest pain. I was called to see the patient for management of hemodialysis. He has been on hemodialysis Tuesday, and Tuesday. Additional Remarks Patient was seen in the afternoon, no chest pain, no SOB, feeling better after HD. Objective Data Data 04/14/17 04/15/17 19:00 07:00 Intake Total 300 ml Output Total 1500 ml Balance -1200 ml Intake Oral 300 ml Output Urine Total 0 ml Hemodialysis 1500 ml # Bowel Movements 0 Vital Signs Date Time Temp Pulse Resp B/P (MAP) Pulse Ox O2 Delivery O2 Flow Rate FiO2 04/14/17 18:23 112 147/86 04/14/17 18:01 117 147/86 04/14/17 18:00 114 04/14/17 16:00 98.3 115 21 149/84 (105) 98 04/14/17 16:00 115 04/14/17 14:00 78 04/14/17 12:00 72 04/14/17 12:00 98.3 72 14 166/77 (106) 100 04/14/17 10:00 72 04/14/17 09:50 100 Nasal Cannula 2.00 04/14/17 08:00 71 04/14/17 08:00 98.1 71 16 126/72 (90) 99 04/14/17 06:00 69 04/14/17 04:00 66 04/14/17 04:00 97.9 67 10 108/57 (74) 99 04/14/17 02:00 66 04/14/17 00:30 100 Nasal Cannula 2.00 04/14/17 00:00 62 04/14/17 00:00 97.7 62 15 109/68 (82) 100 04/13/17 22:00 66 -: 04/14/17 0500 04/14/17 0500 Physical Exam General Appearance: No Acute Distress, Comfortable Eyes Eye Exam: Pupils Equal Throat Throat Exam: Oral Mucosa [place] & Moist Neck Neck Exam: Neck Supple Pulmonary Resp Exam: Breath Sounds Equal, No Distress, Rhonchi, Decreased Bases Cardiology CV Exam: Regular, Normal Sinus Rhythm Gastrointestinal/Abdomen GI Exam: Soft, Non-Tender, Bowel Sounds Present Extremeties Extremities Exam: Trace Edema Neurologic Neuro Exam: Alert, Awake, Oriented Psychiatric Psych Exam: Appropriate Responses Assessment/Plan Assessment Summary: CHF, Hypertension, End Stage Renal Disease Electrolyte Assessment: Hyperkalemia Problem List: (1) Anemia ICD Codes: D64.9 - Anemia, unspecified Status: Chronic (2) Diabetes mellitus ICD Codes: E11.9 - Diabetes mellitus Status: Chronic (3) HTN (hypertension) ICD Codes: I10 - Essential (primary) hypertension Status: Chronic (4) Non-STEMI (non-ST elevated myocardial infarction) ICD Codes: I21.4 - Non-ST elevation (NSTEMI) myocardial infarction Status: Acute (5) Hyperlipidemia ICD Codes: E78.5 - Hyperlipidemia, unspecified Status: Chronic (6) Systolic CHF, acute ICD Codes: I50.21 - Systolic CHF, acute Status: Acute (7) ESRD (end stage renal disease) ICD Codes: N18.6 - End stage renal disease Status: Acute Plan Patient has NSTEMI, now has no chest pain. BP is stable. Seen by cardiac surgery. Medical Management. HD done in AM, K was elevated. Tolerated HD well, no chest pain during HD. Cardiology follow up noted. Problem Qualifiers (1) Hyperlipidemia: Qualified Codes: E78.2 - Mixed hyperlipidemia Jeana Corona MD Apr 14, 2017 21:34
[2017-04-15] VITALS (18 sets, daily range): BP systolic 103–158; BP diastolic 56–83; PULSE 68–81; RESP 10–17; TEMP 97.8–98.7; O2SAT 97–100
[2017-04-15] MEDS: AMIODARONE INJ 450 MG in D5W (EXCEL BAG) INJ 241 ML IV SCH ×2 (03:47→10:07)
[2017-04-15] MEDS: CHLORHEXIDINE GLUCONATE 2 % 1 PACK (2 CLOTHS) TOP SCH (03:47)
[2017-04-15] MEDS: ISOSORBIDE MONONITRATE 60 MG TAB PO SCH (06:06)
--- NOTE | 2017-04-15 06:38 | HHI.CCPN ---
Subjective Remarks/Hospital Course History of Present Illness 56-year-old male comes with history of substernal chest pain radiating to his right shoulder. Patient says that he's been getting on and off chest pain for past 3-4 days. He has end-stage renal disease with hemodialysis dependence. He was getting hemodialyzed today when he started getting the pain again. He was given 3 sublingual nitroglycerin at the dialysis Center and he was recommended to come to the emergency room. Patient did not want to come at that time and went home instead. At home he continued to get the chest pain and decided to come in. No syncopal episode. Patient says that he had a stress test 2 years ago. No history of coronary artery disease. He was atrial fibrillation on the monitor in the emergency department. No history of previous A. fib. His initial troponin was 10 and the patient is admitted to ICU as a non-ST elevation myocardial infarction. Subjective: 04/13: Tmax 99.9. The patient underwent left heart catheterization today which revealed EF of 20% and moderate to severe coronary artery disease.CTS has been consulted for possible CABG 04/14: This afternoon, the patient complained of chest pain 6/10 concurrently A. fib RVR. The patient was given 2 mg of morphine IV push for resolution of symptoms. The patient continues on amiodarone infusion for rate control, hemodynamically stable. 04/15: Afebrile. No further episodes of angina throughout the night. Patient converted to normal sinus rhythm at approximately 10 PM he continues on amiodarone infusion 0.5 mg. Plan transition to by mouth amiodarone. Objective Vital Signs Date Time Temp Pulse Resp B/P (MAP) Pulse Ox O2 Delivery O2 Flow Rate FiO2 04/15/17 03:47 74 117/69 04/15/17 00:00 98.4 10 100 04/14/17 21:37 Nasal Cannula 2.00 Result Diagram: 04/14/17 0500 04/14/17 0500 Imaging Last 24 hours Impressions Chest X-Ray 04/12/17 2751 Signed Impressions: Service Date/Time: Wednesday, April 12, 2017 18:04 - CONCLUSION: No acute cardiopulmonary disease. Rachell Hernandez MD Objective Remarks GENERAL: Well-nourished, well-developed patient on nasal cannula sitting up in bed SKIN: Warm and dry. HEAD: Normocephalic. EYES: No scleral icterus. No injection or drainage. NECK: Supple, trachea midline. No JVD or lymphadenopathy. CARDIOVASCULAR: Regular rate and rhythm without murmurs, gallops, or rubs. RESPIRATORY: Breath sounds equal bilaterally. No accessory muscle use. Clear to auscultation GASTROINTESTINAL: Abdomen soft, non-tender, nondistended. Morbidly obese MUSCULOSKELETAL: No cyanosis, or edema. Right forearm AV graft positive bruit and thrill BACK: Nontender without obvious deformity. NEURO EXAM: GCS: M 6 V 5 E 4 Mental Status: The patient is alert and oriented to person, place, and time with normal speech. Cranial Nerves: Visual acuity intact bilaterally. Visual jacob normal in all quadrants. Pupils are round, reactive to light. Extraocular movements are intact without ptosis. Hearing is normal bilaterally. Voice is normal. Tongue protrudes midline and moves symmetrically. Reflexes: Biceps, patellar, and Achilles are 2/4 bilaterally. No clonus. Procedures 04/13-left heart catheterization A/P Assessment and Plan Non-ST elevation myocardial infarction A. fib RVR - Amiodarone infusion, will transition to by mouth 200mg BID this am - Monitor trends of troponins - Serial EKGs - Cardiology following- Dr. Grossman - Metoprolol 25 every 6 hours - Nitro paste - Atorvastatin - Aspirin - 04/13 Cardiac catheterization-moderate to severe the vessel coronary artery disease. Moderate to severe left main disease. Ejection fraction 20% -CTS consulted -04/14 Amiodarone bolus, followed by amiodarone infusion, continuous infusion for 24 hours to and at 6 PM 04/16/17. Patient to be then transitioned to by mouth amiodarone, per recommendations of cardiology. Diabetes mellitus - diabetic diet - Insulin sliding scale Hypertension - Hydralazine - Metoprolol - Hold lisinopril End-stage renal disease - HD per nephrology-Dr. Corona, scheduling Tuesday DVT GI prophylaxis - Teds SCDs -04/13 Heparin infusion discontinued, post cardiac cath - Pepcid Critical Care: Level 3 Planned transferred to [facility] in a.m. The patient is a poor surgical candidate per cardiology but will await disposition regarding possible cardiac surgical intervention. Physician Jil Jordan MD Apr 15, 2017 06:38
[2017-04-15 07:31] LABS: HEMATOCRIT 32.4 % (39.0-51.0); MEAN CELL VOLUME 95.5 FL (80.0-100.0); MEAN CORPUSCULAR HGB CONC 33.5 % (32.0-36.0); PLATELET COUNT 150 TH/MM3 (150-450); RED BLOOD COUNT 3.39 MIL/MM3 (4.50-5.90); RED CELL DISTRIBUTION WIDTH 14.5 % (11.6-17.2); REVIEW FLAG FINAL; WHITE BLOOD COUNT 8.6 TH/MM3 (4.0-11.0)
[2017-04-15] MEDS: INSULIN ASPART SUPPLEMENTAL SCALE SQ SCH ×4 (08:00→21:00)
[2017-04-15 08:17] LABS: MAGNESIUM 2.3 MG/DL (1.5-2.5); POTASSIUM 4.3 MEQ/L (3.5-5.1)
--- NOTE | 2017-04-15 08:18 | PD.CARD.PN ---
Subjective Subjective Remarks Feels "OK". No CP. No dyspnea, palpitations, dizziness. Objective Medications Item Value Date Time Amiodarone HCl 200 mg 04/15/17 0900 (Cordarone) Q12HR/PO Amiodarone HCl 250 ml @ 33.33 mls/hr 04/14/17 1715 450 mg/Dextrose .Q7H31M/IV 04/15/17 0347 Isosorbide 60 mg 04/15/17 0700 Mononitrate DAILY@07/PO 04/15/17 0606 (Imdur) Clopidogrel 75 mg 04/14/17 1530 Bisulfate DAILY/PO 04/14/17 1823 (Plavix) Carvedilol 25 mg 04/12/17 2100 (Coreg) BID/PO 04/14/17 194 Clonidine 0.1 mg 04/12/17 2100 (Catapres) BID/PO 04/14/17 194 Nitroglycerin 1 inch 04/13/17 0900 (Nitroglycerin DAILY/TOP 2% Oint) Aspirin 325 mg 04/13/17 0900 (Ecotrin Ec) DAILY/PO 04/14/17 1357 Pravastatin Sodium 80 mg 04/13/17 0900 (Pravachol) DAILY/PO 04/14/17 1357 Losartan Potassium 50 mg 04/13/17 0900 (Cozaar) DAILY/PO 04/14/17 1357 Hydralazine HCl 50 mg 04/13/17 0900 (Apresoline) TID/PO 04/14/17 1824 Current Medications Medications (Trade) Dose Ordered Sig/Taj Route Start Time Stop Time Status Last Admin (NS Flush) 2 ml UNSCH PRN IVF 04/12/17 18:00 (Phoslo) 1,334 mg TID PO 04/13/17 09:00 04/14/17 18:23 (Coreg) 25 mg BID PO 04/12/17 21:00 04/14/17 19:42 (Catapres) 0.1 mg BID PO 04/12/17 21:00 04/14/17 19:43 (Neurontin) 100 mg TID PO 04/13/17 09:00 04/14/17 18:23 (Apresoline) 50 mg TID PO 04/13/17 09:00 04/14/17 18:24 (Cozaar) 50 mg DAILY PO 04/13/17 09:00 04/14/17 13:57 (Pravachol) 80 mg DAILY PO 04/13/17 09:00 04/14/17 13:57 (NS Flush) 2 ml BID IV FLUSH 04/12/17 21:00 04/14/17 19:43 (NS Flush) 2 ml UNSCH PRN IV FLUSH 04/12/17 20:15 (Ecotrin Ec) 325 mg DAILY PO 04/13/17 09:00 04/14/17 13:57 (Nitroglycerin 2% Oint) 1 inch DAILY TOP 04/13/17 09:00 04/13/17 09:27 (Morphine Inj) 2 mg Q3H PRN IV PUSH 04/12/17 20:15 04/14/17 19:43 (Tylenol) 650 mg Q6H PRN PO 04/12/17 20:15 (Colace) 100 mg BID PRN PO 04/12/17 20:15 (Xanax) 0.25 mg Q8H PRN PO 04/12/17 20:15 04/12/17 22:35 (Zofran Inj) 4 mg Q6H PRN IV PUSH 04/12/17 20:15 Miscellaneous Information 1 Q361D XX 04/12/17 20:15 04/12/17 22:00 (Chlorhexidine 2% Cloth) 3 pack Taper DAILY@04 TOP 04/13/17 04:00 04/09/18 03:59 04/15/17 03:47 (Chlorhexidine 2% Cloth) 3 pack UNSCH PRN TOP 04/12/17 20:15 (D50w (Vial) Inj) 50 ml UNSCH PRN IV PUSH 04/12/17 21:15 (Glucagon Inj) 1 mg UNSCH PRN OTHER 04/12/17 21:15 (NovoLOG SUPPLEMENTAL SCALE) 1 ACHS SLIDING SCALE SQ 04/13/17 08:00 04/14/17 21:00 (Benadryl) 50 mg CADD MANAGER PO 04/13/17 09:00 04/17/17 08:59 (Valium) 10 mg CADD MANAGER PO 04/13/17 09:00 04/17/17 08:59 (Atropine Inj) 0.5 mg UNSCH PRN IV 04/13/17 10:45 Sodium Chloride 1,000 ml @ 0 mls/hr Q0M PRN OTHER 04/13/17 17:19 (Heparin Inj) 8,000 units UNSCH PRN IV FLUSH 04/13/17 17:30 Sodium Chloride 1,000 ml @ 200 mls/hr Q5H PRN IV 04/13/17 17:19 Sodium Chloride 1,000 ml @ 0 mls/hr Q0M PRN OTHER 04/13/17 17:19 (Mannitol Inj) 12.5 gm UNSCH PRN IV 04/13/17 17:30 Albumin Human 100 ml @ 60 mls/hr UNSCH PRN IV 04/13/17 17:30 (NS Flush) 5 ml UNSCH PRN IV FLUSH 04/13/17 17:30 (Heparin Inj) UNSCH PRN .XX 04/13/17 17:30 (Gentamicin (Dialysis) Inj) 20 mg UNSCH PRN OTHER 04/13/17 17:30 (Zofran Inj) 4 mg UNSCH PRN IV PUSH 04/13/17 17:30 (Tylenol) 650 mg UNSCH PRN PO 04/13/17 17:30 (Benadryl) 25 mg UNSCH PRN PO 04/13/17 17:30 (Nitrostat Sl) 0.4 mg UNSCH PRN SL 04/13/17 17:30 (Catapres) 0.1 mg UNSCH PRN PO 04/13/17 17:30 (Epogen Inj) 6,000 units UNSCH PRN IV PUSH 04/13/17 17:30 04/14/17 09:05 (Gelfoam 12 Mm/7 Mm Top) 1 foam UNSCH PRN TOP 04/13/17 17:30 04/14/17 09:05 (Imdur) 60 mg DAILY@07 PO 04/15/17 07:00 04/15/17 06:06 (Plavix) 75 mg DAILY PO 04/14/17 15:30 04/14/17 18:23 Amiodarone HCl 450 mg/Dextrose 250 ml @ 33.33 mls/ hr Q7H31M IV 04/14/17 17:15 04/15/17 10:30 04/15/17 03:47 (Cordarone) 200 mg Q12HR PO 04/15/17 09:00 Vital Signs / I&O Vital Signs Date Time Temp Pulse Resp B/P (MAP) Pulse Ox O2 Delivery O2 Flow Rate FiO2 04/15/17 03:47 74 117/69 04/15/17 02:00 76 04/15/17 00:00 78 04/15/17 00:00 98.4 78 10 148/80 (102) 100 04/14/17 22:00 77 04/14/17 21:37 100 Nasal Cannula 2.00 04/14/17 20:00 98.1 110 15 133/72 (92) 97 04/14/17 20:00 110 04/14/17 18:23 112 147/86 04/14/17 18:01 117 147/86 04/14/17 18:00 114 04/14/17 16:00 98.3 115 21 149/84 (105) 98 04/14/17 16:00 115 04/14/17 14:00 78 04/14/17 12:00 72 04/14/17 12:00 98.3 72 14 166/77 (106) 100 04/14/17 10:00 72 04/14/17 09:50 100 Nasal Cannula 2.00 I/O 04/14/17 04/14/17 04/14/17 04/15/17 04/15/17 04/15/17 07:00 15:00 23:00 07:00 15:00 23:00 Intake Total 300 ml Output Total 400 ml 1500 ml 0 ml Balance -400 ml -1500 ml 300 ml Intake Oral 300 ml Output Urine Total 400 ml 0 ml Hemodialysis 1500 ml # Bowel Movements 0 0 Physical Exam GENERAL: Well developed, well nourished. No acute distress. HEENT: Jugular venous pressure difficult to assess. CHEST: Lungs clear to auscultation anteriorly. CARDIAC: Regular rate and rhythm without S3, S4, or murmur. ABDOMEN: Soft, nontender, no hepatosplenomegaly. Bowel sounds present. EXTREMITIES: No clubbing, cyanosis, or edema. Laboratory Laboratory Tests Test 04/15/17 06:47 White Blood Count 8.6 TH/MM3 Red Blood Count 3.39 MIL/MM3 Hemoglobin 10.9 GM/DL Hematocrit 32.4 % Mean Corpuscular Volume 95.5 FL Mean Corpuscular Hemoglobin 32.0 PG Mean Corpuscular Hemoglobin Concent 33.5 % Red Cell Distribution Width 14.5 % Platelet Count 150 TH/MM3 Mean Platelet Volume 9.1 FL Assessment and Plan Problem List: (1) Non-STEMI (non-ST elevated myocardial infarction) ICD Codes: I21.4 - Non-ST elevation (NSTEMI) myocardial infarction Status: Acute Plan: Stable overnight. Brief angina yesterday during atrial fib episode. Dr. Tim's input noted, appreciated. Patient not candidate for surgical revascularization. REC continue current medical therapy (2) Paroxysmal atrial fibrillation ICD Codes: I48.0 - Paroxysmal atrial fibrillation Status: Acute Plan: Recurrent atrial fib yesterday with RVR, associated with recurrent angina. Rec anticoagulation therapy as his thromboembolic risk is high with recurrent atrial fib. REC start warfarin stop Plavix, continue aspirin continue IV Amiodarone another 24 hours (3) Ischemic cardiomyopathy ICD Codes: I25.5 - Ischemic cardiomyopathy Status: Chronic Plan: EF ~25%. Overall compensated. No overt CHF. Rec continue beta darwin , ARB. (4) Hypertension ICD Codes: I10 - Hypertension Status: Chronic Plan: Stable. Normotensive on multidrug regimen. (5) Hyperlipidemia ICD Codes: E78.5 - Hyperlipidemia, unspecified Status: Chronic Plan: Acceptable lipid profile with LDL 46, HDL 40. Continue statin therapy. Code Status full code Discussed Condition With patient Problem Qualifiers (1) Hypertension: Qualified Codes: I10 - Essential (primary) hypertension (2) Hyperlipidemia: Qualified Codes: E78.2 - Mixed hyperlipidemia Rene Aguilar MD Apr 15, 2017 08:17
[2017-04-15] MEDS ORDERED: AMIODARONE INJ 900 MG in DEXTROSE 5% IN WATE 500 ML INJ 482 ML IV PRN ×4 (08:28→18:46)
[2017-04-15] MEDS ORDERED: AMIODARONE INJ 450 MG in D5W (EXCEL BAG) INJ 241 ML IV SCH (08:45)
[2017-04-15] MEDS: CARVEDILOL 12.5 MG TAB PO SCH ×2 (09:00→20:07)
[2017-04-15] MEDS ORDERED: AMIODARONE 200 MG TAB PO SCH (09:00)
[2017-04-15] MEDS: cloNIDine HCL 0.1 MG TAB PO SCH ×2 (09:00→20:07)
[2017-04-15] MEDS: NITROGLYCERIN 2% OINT 1 GM PACKET TOP SCH (10:04)
[2017-04-15] MEDS: hydrALAZINE HCL 50 MG TAB PO SCH ×3 (10:05→18:18)
[2017-04-15] MEDS: LOSARTAN 50 MG TAB PO SCH (10:06)
[2017-04-15] MEDS: PRAVASTATIN SOD 80 MG TAB PO SCH (10:06)
[2017-04-15] MEDS: GABAPENTIN 100 MG CAP PO SCH ×3 (10:06→18:18)
[2017-04-15] MEDS: ASPIRIN EC 325 MG TABEC PO SCH (10:06)
[2017-04-15] MEDS: CALCIUM ACETATE 667 MG CAP PO SCH ×3 (10:06→18:18)
[2017-04-15] MEDS: SODIUM CHLORIDE 0.9% FLUSH 10 ML FLUSH IV FLUSH SCH ×2 (10:07→20:07)
--- NOTE | 2017-04-15 11:28 | HHI.NPPN ---
Subjective History of Present Illness 56-year-old male known to me from before with past medical history of hypertension, chronic anemia, diabetes mellitus, end-stage renal disease on hemodialysis three times per week came to the hospital with complaint of recurrent retrosternal chest pain. I was called to see the patient for management of hemodialysis. He has been on hemodialysis Tuesday, and Tuesday. Additional Remarks Patient is alert, no chest pain, no SOB. Objective Data Data Vital Signs Date Time Temp Pulse Resp B/P (MAP) Pulse Ox O2 Delivery O2 Flow Rate FiO2 04/15/17 10:07 67 107/57 04/15/17 08:32 98 Nasal Cannula 2.00 04/15/17 06:00 71 04/15/17 04:00 98.7 75 11 124/69 (87) 99 04/15/17 04:00 75 04/15/17 03:47 74 117/69 04/15/17 02:00 76 04/15/17 00:00 78 04/15/17 00:00 98.4 78 10 148/80 (102) 100 04/14/17 22:00 77 04/14/17 21:37 100 Nasal Cannula 2.00 04/14/17 20:00 98.1 110 15 133/72 (92) 97 04/14/17 20:00 110 04/14/17 18:23 112 147/86 04/14/17 18:01 117 147/86 04/14/17 18:00 114 04/14/17 16:00 98.3 115 21 149/84 (105) 98 04/14/17 16:00 115 04/14/17 14:00 78 04/14/17 12:00 72 04/14/17 12:00 98.3 72 14 166/77 (106) 100 -: 04/15/17 0647 04/15/17 0647 Physical Exam General Appearance: No Acute Distress, Comfortable Eyes Eye Exam: Pupils Equal Throat Throat Exam: Oral Mucosa [place] & Moist Neck Neck Exam: Neck Supple Pulmonary Resp Exam: Breath Sounds Equal, No Distress, Rhonchi, Decreased Bases Cardiology CV Exam: Regular, Normal Sinus Rhythm Gastrointestinal/Abdomen GI Exam: Soft, Non-Tender, Bowel Sounds Present Extremeties Extremities Exam: Trace Edema Neurologic Neuro Exam: Alert, Awake, Oriented Psychiatric Psych Exam: Appropriate Responses Assessment/Plan Assessment Summary: CHF, Hypertension, End Stage Renal Disease Electrolyte Assessment: Hyperkalemia Problem List: (1) Anemia ICD Codes: D64.9 - Anemia, unspecified Status: Chronic (2) Diabetes mellitus ICD Codes: E11.9 - Diabetes mellitus Status: Chronic (3) HTN (hypertension) ICD Codes: I10 - Essential (primary) hypertension Status: Chronic (4) Non-STEMI (non-ST elevated myocardial infarction) ICD Codes: I21.4 - Non-ST elevation (NSTEMI) myocardial infarction Status: Acute (5) Hyperlipidemia ICD Codes: E78.5 - Hyperlipidemia, unspecified Status: Chronic (6) Systolic CHF, acute ICD Codes: I50.21 - Systolic CHF, acute Status: Acute (7) ESRD (end stage renal disease) ICD Codes: N18.6 - End stage renal disease Status: Acute Plan Patient has NSTEMI, now has no chest pain. BP is stable. Seen by cardiac surgery. Medical Management. HD to continue TTS,K is better after HD. Tolerated HD well, no chest pain during HD. Cardiology follow up noted. HD again in AM. Problem Qualifiers (1) Hyperlipidemia: Qualified Codes: E78.2 - Mixed hyperlipidemia Jeana Corona MD Apr 15, 2017 11:28
[2017-04-15] MEDS: WARFARIN SOD 5 MG TAB PO SCH (16:09)
--- NOTE | 2017-04-15 18:18 | ECHRPT ---
Indication: Coronary atherosclerosis CONCLUSIONS The left ventricular systolic function is normal with an estimated ejection fraction in the range of 55-60%. Normal left ventricular size. Wall thickness is normal. No regional wall motion abnormalities are present. The left atrial size is mildly dilated. [id number] mitral valve regurgitation. Mild aortic valve regurgitation. There is trace tricuspid valve regurgitation. Normal estimated pulmonary pressures. The pulmonary valve is not well visualized. BP: 131 / 77 HR: 69 Rhythm: Sinus MEASUREMENTS (Male / Female) Normal Values Technical Quality:Fair 2D ECHO LV Diastolic Diameter PLAX 5.8 cm 4.2 - 5.9 / 3.9 - 5.3 cm LV Systolic Diameter PLAX 4.1 cm IVS Diastolic Thickness 1.1 cm 0.6 - 1.0 / 0.6 - 0.9 cm LVPW Diastolic Thickness 1.1 cm 0.6 - 1.0 / 0.6 - 0.9 cm LV Relative Wall Thickness 0.4 RV Internal Dim ED PLAX 3.1 cm LVOT Diameter 2.0 cm LA Systolic Diameter LX 4.7 cm 3.0 - 4.0 / 2.7 - 3.8 cm LV Ejection Fraction MOD 4C 54.7 % LV Cardiac Index MOD 4C 3826.7 cm/minm LV Ejection Fraction 4C AL 54.6 % LV Cardiac Index 4C AL 3910.0 cm/minm M-MODE Aortic Root Diameter MM 3.8 cm AV Cusp Separation MM 1.7 cm DOPPLER AV Peak Velocity 160.0 cm/s AV Peak Gradient 10.2 mmHg LVOT Peak Velocity 100.0 cm/s LVOT Peak Gradient 4.0 mmHg AV Area Cont Eq pk 2.0 cm MV Area PHT 3.9 cm Mitral E Point Velocity 146.0 cm/s Mitral A Point Velocity 85.0 cm/s Mitral E to A Ratio 1.7 LV E' Lateral Velocity 5.7 cm/s Mitral E to LV E' Lateral Ratio 25.8 LV E' Septal Velocity 5.1 cm/s Mitral E to LV E' Septal Ratio 28.8 PV Peak Velocity 111.0 cm/s PV Peak Gradient 4.9 mmHg FINDINGS LEFT VENTRICLE The left ventricular systolic function is normal with an estimated ejection fraction in the range of 55-60%. Normal left ventricular size. Wall thickness is normal. No regional wall motion abnormalities are present. RIGHT VENTRICLE Normal right ventricular size and systolic function. LEFT ATRIUM The left atrial size is mildly dilated. RIGHT ATRIUM The right atrial size is normal. ATRIAL SEPTUM Normal atrial septal thickness without atrial level shunting by limited color doppler interrogation. AORTA The aortic root and proximal ascending aorta are normal in size on limited imaging. MITRAL VALVE Structurally normal mitral valve. [id number] mitral valve regurgitation. AORTIC VALVE Trileaflet aortic valve. Mild aortic valve regurgitation. TRICUSPID VALVE Structurally normal tricuspid valve. There is trace tricuspid valve regurgitation. Normal estimated pulmonary pressures. PULMONARY VALVE The pulmonary valve is not well visualized. VESSELS The inferior vena cava is normal in size. PERICARDIUM No pericardial effusion. Del Stanton MD (Electronically Signed) Final Date:15 April 2017 18:17
[2017-04-15] MEDS ORDERED: AMIODARONE INJ 450 MG in DEXTROSE 5% IN WATE(EXCEL) INJ 241 ML IV PRN ×2 (19:30)
[2017-04-15] MEDS: AMIODARONE 200 MG TAB PO SCH (21:00)
[2017-04-16] VITALS (12 sets, daily range): BP systolic 103–138; BP diastolic 59–76; PULSE 66–81; RESP 11–21; TEMP 98.1–99.4; O2SAT 98–100
[2017-04-16] MEDS: CHLORHEXIDINE GLUCONATE 2 % 1 PACK (2 CLOTHS) TOP SCH (04:00)
[2017-04-16 05:07] LABS: INTERNATIONAL NORMALIZED RATIO 1.1 RATIO; PROTHROMBIN TIME - PATIENT 12.5 SEC (9.8-11.6)
[2017-04-16 05:50] LABS: BICARBONATE 23.7 MEQ/L (21.0-32.0); MAGNESIUM 2.4 MG/DL (1.5-2.5); POTASSIUM 4.7 MEQ/L (3.5-5.1)
[2017-04-16] MEDS: AMIODARONE 200 MG TAB PO SCH ×3 (07:43→21:31)
[2017-04-16] MEDS: ISOSORBIDE MONONITRATE 60 MG TAB PO SCH (07:56)
[2017-04-16] MEDS: INSULIN ASPART SUPPLEMENTAL SCALE SQ SCH ×4 (08:00→21:32)
--- NOTE | 2017-04-16 11:00 | PD.CARD.PN ---
Subjective Subjective Remarks Pt feels well, no complaints. Objective Medications Administered Medications Medications (Trade) Dose Ordered Sig/Taj Route PRN Reason Start Time Stop Time Status Last Admin Dose Admin Calcium Acetate (Phoslo) 1,334 mg TID PO 04/13/17 09:00 04/15/17 18:18 Carvedilol (Coreg) 25 mg BID PO 04/12/17 21:00 04/15/17 20:07 Clonidine (Catapres) 0.1 mg BID PO 04/12/17 21:00 04/15/17 20:07 Gabapentin (Neurontin) 100 mg TID PO 04/13/17 09:00 04/15/17 18:18 Hydralazine HCl (Apresoline) 50 mg TID PO 04/13/17 09:00 04/15/17 18:18 Losartan Potassium (Cozaar) 50 mg DAILY PO 04/13/17 09:00 04/15/17 10:06 Pravastatin Sodium (Pravachol) 80 mg DAILY PO 04/13/17 09:00 04/15/17 10:06 Sodium Chloride (NS Flush) 2 ml BID IV FLUSH 04/12/17 21:00 04/15/17 20:07 Aspirin (Ecotrin Ec) 325 mg DAILY PO 04/13/17 09:00 04/15/17 10:06 Nitroglycerin (Nitroglycerin 2% Oint) 1 inch DAILY TOP 04/13/17 09:00 04/15/17 10:04 Morphine Sulfate (Morphine Inj) 2 mg Q3H PRN IV PUSH SEVERE PAIN 04/12/17 20:15 04/14/17 19:43 Alprazolam (Xanax) 0.25 mg Q8H PRN PO ANXIETY 04/12/17 20:15 04/12/17 22:35 Miscellaneous Information 1 Q361D XX 04/12/17 20:15 04/12/17 22:00 Chlorhexidine Gluconate (Chlorhexidine 2% Cloth) 3 pack Taper DAILY@04 TOP 04/13/17 04:00 04/09/18 03:59 04/16/17 04:00 Insulin Aspart (NovoLOG SUPPLEMENTAL SCALE) 1 ACHS SLIDING SCALE SQ 04/13/17 08:00 04/15/17 21:00 Epoetin Abraham (Epogen Inj) 6,000 units UNSCH PRN IV PUSH WITH DIALYSIS 04/13/17 17:30 04/14/17 09:05 Gelatin (Gelfoam 12 Mm/7 Mm Top) 1 foam UNSCH PRN TOP SEE LABEL COMMENTS 04/13/17 17:30 04/14/17 09:05 Isosorbide Mononitrate (Imdur) 60 mg DAILY@07 PO 04/15/17 07:00 04/16/17 07:56 Warfarin Sodium (Coumadin) 5 mg DAILY@1600 PO 04/15/17 16:00 04/15/17 16:09 Amiodarone HCl 450 mg/Dextrose 250 ml @ 33.33 mls/ hr Q7H31M PRN IV Per Protocol 04/15/17 19:30 04/16/17 19:29 04/15/17 22:41 Current Medications Medications (Trade) Dose Ordered Sig/Taj Route Start Time Stop Time Status Last Admin (NS Flush) 2 ml UNSCH PRN IVF 04/12/17 18:00 (Phoslo) 1,334 mg TID PO 04/13/17 09:00 04/15/17 18:18 (Coreg) 25 mg BID PO 04/12/17 21:00 04/15/17 20:07 (Catapres) 0.1 mg BID PO 04/12/17 21:00 04/15/17 20:07 (Neurontin) 100 mg TID PO 04/13/17 09:00 04/15/17 18:18 (Apresoline) 50 mg TID PO 04/13/17 09:00 04/15/17 18:18 (Cozaar) 50 mg DAILY PO 04/13/17 09:00 04/15/17 10:06 (Pravachol) 80 mg DAILY PO 04/13/17 09:00 04/15/17 10:06 (NS Flush) 2 ml BID IV FLUSH 04/12/17 21:00 04/15/17 20:07 (NS Flush) 2 ml UNSCH PRN IV FLUSH 04/12/17 20:15 (Ecotrin Ec) 325 mg DAILY PO 04/13/17 09:00 04/15/17 10:06 (Nitroglycerin 2% Oint) 1 inch DAILY TOP 04/13/17 09:00 04/15/17 10:04 (Morphine Inj) 2 mg Q3H PRN IV PUSH 04/12/17 20:15 04/14/17 19:43 (Tylenol) 650 mg Q6H PRN PO 04/12/17 20:15 (Colace) 100 mg BID PRN PO 04/12/17 20:15 (Xanax) 0.25 mg Q8H PRN PO 04/12/17 20:15 04/12/17 22:35 (Zofran Inj) 4 mg Q6H PRN IV PUSH 04/12/17 20:15 Miscellaneous Information 1 Q361D XX 04/12/17 20:15 04/12/17 22:00 (Chlorhexidine 2% Cloth) 3 pack Taper DAILY@04 TOP 04/13/17 04:00 04/09/18 03:59 04/16/17 04:00 (Chlorhexidine 2% Cloth) 3 pack UNSCH PRN TOP 04/12/17 20:15 (D50w (Vial) Inj) 50 ml UNSCH PRN IV PUSH 04/12/17 21:15 (Glucagon Inj) 1 mg UNSCH PRN OTHER 04/12/17 21:15 (NovoLOG SUPPLEMENTAL SCALE) 1 ACHS SLIDING SCALE SQ 04/13/17 08:00 04/15/17 21:00 (Benadryl) 50 mg JEWEL SORTER PO 04/13/17 09:00 04/17/17 08:59 (Valium) 10 mg JEWEL SORTER PO 04/13/17 09:00 04/17/17 08:59 (Atropine Inj) 0.5 mg UNSCH PRN IV 04/13/17 10:45 Sodium Chloride 1,000 ml @ 0 mls/hr Q0M PRN OTHER 04/13/17 17:19 (Heparin Inj) 8,000 units UNSCH PRN IV FLUSH 04/13/17 17:30 Sodium Chloride 1,000 ml @ 200 mls/hr Q5H PRN IV 04/13/17 17:19 Sodium Chloride 1,000 ml @ 0 mls/hr Q0M PRN OTHER 04/13/17 17:19 (Mannitol Inj) 12.5 gm UNSCH PRN IV 04/13/17 17:30 Albumin Human 100 ml @ 60 mls/hr UNSCH PRN IV 04/13/17 17:30 (NS Flush) 5 ml UNSCH PRN IV FLUSH 04/13/17 17:30 (Heparin Inj) UNSCH PRN .XX 04/13/17 17:30 (Gentamicin (Dialysis) Inj) 20 mg UNSCH PRN OTHER 04/13/17 17:30 (Zofran Inj) 4 mg UNSCH PRN IV PUSH 04/13/17 17:30 (Tylenol) 650 mg UNSCH PRN PO 04/13/17 17:30 (Benadryl) 25 mg UNSCH PRN PO 04/13/17 17:30 (Nitrostat Sl) 0.4 mg UNSCH PRN SL 04/13/17 17:30 (Catapres) 0.1 mg UNSCH PRN PO 04/13/17 17:30 (Epogen Inj) 6,000 units UNSCH PRN IV PUSH 04/13/17 17:30 04/14/17 09:05 (Gelfoam 12 Mm/7 Mm Top) 1 foam UNSCH PRN TOP 04/13/17 17:30 04/14/17 09:05 (Imdur) 60 mg DAILY@07 PO 04/15/17 07:00 04/16/17 07:56 (Coumadin) 5 mg DAILY@1600 PO 04/15/17 16:00 04/15/17 16:09 (Cordarone) 200 mg BID PO 04/15/17 21:00 Amiodarone HCl 450 mg/Dextrose 250 ml @ 33.33 mls/ hr Q7H31M PRN IV 04/15/17 19:30 04/16/17 19:29 04/15/17 22:41 Vital Signs / I&O Vital Signs Date Time Temp Pulse Resp B/P (MAP) Pulse Ox O2 Delivery O2 Flow Rate FiO2 04/16/17 10:00 70 04/16/17 08:00 75 04/16/17 08:00 99.4 75 16 125/76 (92) 04/16/17 06:00 72 04/16/17 04:00 98.3 74 11 135/62 (86) 100 04/16/17 04:00 74 04/16/17 02:00 72 04/16/17 00:00 72 04/16/17 00:00 98.1 72 17 138/73 (94) 99 04/15/17 22:41 79 129/71 04/15/17 22:00 75 04/15/17 21:00 99 Nasal Cannula 2.00 04/15/17 20:00 97.8 81 15 137/73 (94) 98 04/15/17 20:00 81 04/15/17 18:00 81 04/15/17 17:00 73 04/15/17 16:00 74 04/15/17 16:00 74 17 158/83 (108) 100 04/15/17 16:00 98.0 74 17 158/83 (108) 100 04/15/17 15:00 74 04/15/17 14:00 74 04/15/17 13:00 70 04/15/17 12:00 68 04/15/17 12:00 97.9 68 12 138/71 (93) 100 04/15/17 11:00 68 I/O 04/15/17 04/15/17 04/15/17 04/16/17 04/16/17 04/16/17 07:00 15:00 23:00 07:00 15:00 23:00 Intake Total 482 ml 908 ml 459 ml Output Total 550 ml 0 ml 300 ml Balance -68 ml 908 ml 159 ml Intake Oral 200 ml 800 ml 150 ml IV Total 282 ml 108 ml 309 ml Output Urine Total 550 ml 0 ml 300 ml # Bowel Movements 0 0 0 Physical Exam GENERAL: This is a well-nourished, well-developed patient, in no apparent distress. CARDIOVASCULAR: Regular rate and rhythm without murmurs, gallops, or rubs. RESPIRATORY: Clear to auscultation. Breath sounds equal bilaterally. No wheezes , rales, or rhonchi. GASTROINTESTINAL: Abdomen soft, non-tender, nondistended. Normal active bowel sounds MUSCULOSKELETAL: Extremities without clubbing, cyanosis, or edema. NEURO: Alert & Oriented x4 to person, place, time, situation. Moves all ext x4 Laboratory Laboratory Tests Test 04/16/17 03:33 Prothrombin Time 12.5 SEC Prothromb Time International Ratio 1.1 RATIO Blood Urea Nitrogen 79 MG/DL Creatinine 10.76 MG/DL Random Glucose 215 MG/DL Calcium Level 8.7 MG/DL Phosphorus Level 8.8 MG/DL Magnesium Level 2.4 MG/DL Sodium Level 135 MEQ/L Potassium Level 4.7 MEQ/L Chloride Level 98 MEQ/L Carbon Dioxide Level 23.7 MEQ/L Anion Gap 13 MEQ/L Estimat Glomerular Filtration Rate 5 ML/MIN Imaging Last Impressions Lower Extremity Ultrasound 04/13/17 0000 Signed Impressions: Service Date/Time: Thursday, April 13, 2017 17:56 - CONCLUSION: 1. Venous mapping as above Jamal Nino MD Carotid Artery Ultrasound 04/13/17 0000 Signed Impressions: Service Date/Time: Thursday, April 13, 2017 17:22 - CONCLUSION: No evidence of anatomic or physiologic stenosis. Minimal soft and calcific plaquing of the bulbs and initial segment the internal carotid. Edward Mcallister MD Chest X-Ray 04/12/17 1754 Signed Impressions: Service Date/Time: Wednesday, April 12, 2017 18:04 - CONCLUSION: No acute cardiopulmonary disease. Rachell Hernandez MD Assessment and Plan Problem List: (1) Non-STEMI (non-ST elevated myocardial infarction) ICD Codes: I21.4 - Non-ST elevation (NSTEMI) myocardial infarction Status: Acute Plan: Stable overnight. Patient not candidate for surgical revascularization. REC continue current medical therapy (2) Paroxysmal atrial fibrillation ICD Codes: I48.0 - Paroxysmal atrial fibrillation Status: Acute Plan: Recurrent atrial fib yesterday with RVR, associated with recurrent angina. Rec anticoagulation therapy as his thromboembolic risk is high with recurrent atrial fib. REC start warfarin stop Plavix, continue aspirin (3) Ischemic cardiomyopathy ICD Codes: I25.5 - Ischemic cardiomyopathy Status: Chronic Plan: EF ~25%. Overall compensated. No overt CHF. Rec continue beta darwin , ARB. (4) Hypertension ICD Codes: I10 - Hypertension Status: Chronic Plan: Stable. Normotensive on multidrug regimen. (5) Hyperlipidemia ICD Codes: E78.5 - Hyperlipidemia, unspecified Status: Chronic Plan: Acceptable lipid profile with LDL 46, HDL 40. Continue statin therapy. Problem Qualifiers (1) Hypertension: Qualified Codes: I10 - Essential (primary) hypertension (2) Hyperlipidemia: Qualified Codes: E78.2 - Mixed hyperlipidemia Ramos Navarrete MD Apr 16, 2017 11:00
--- NOTE | 2017-04-16 11:40 | HHI.PR ---
Subjective Remarks Follow-up non-ST elevation MS/paroxysmal A. fib/end-stage renal disease on hemodialysis 04/16/17-patient seen and examined, denies any chest pain or shortness of breath. Currently on amiodarone drip Objective Vitals Vital Signs Date Time Temp Pulse Resp B/P (MAP) Pulse Ox O2 Delivery O2 Flow Rate FiO2 04/16/17 10:00 70 04/16/17 08:00 75 04/16/17 08:00 99.4 75 16 125/76 (92) 04/16/17 06:00 72 04/16/17 04:00 98.3 74 11 135/62 (86) 100 04/16/17 04:00 74 04/16/17 02:00 72 04/16/17 00:00 72 04/16/17 00:00 98.1 72 17 138/73 (94) 99 04/15/17 22:41 79 129/71 04/15/17 22:00 75 04/15/17 21:00 99 Nasal Cannula 2.00 04/15/17 20:00 97.8 81 15 137/73 (94) 98 04/15/17 20:00 81 04/15/17 18:00 81 04/15/17 17:00 73 04/15/17 16:00 74 04/15/17 16:00 74 17 158/83 (108) 100 04/15/17 16:00 98.0 74 17 158/83 (108) 100 04/15/17 15:00 74 04/15/17 14:00 74 04/15/17 13:00 70 04/15/17 12:00 68 04/15/17 12:00 97.9 68 12 138/71 (93) 100 I/O 04/15/17 04/15/17 04/15/17 04/16/17 04/16/17 04/16/17 07:00 15:00 23:00 07:00 15:00 23:00 Intake Total 482 ml 908 ml 459 ml Output Total 550 ml 0 ml 300 ml Balance -68 ml 908 ml 159 ml Intake Oral 200 ml 800 ml 150 ml IV Total 282 ml 108 ml 309 ml Output Urine Total 550 ml 0 ml 300 ml # Bowel Movements 0 0 0 Result Diagram: 04/15/17 0647 04/16/17 0333 Imaging Last Impressions Lower Extremity Ultrasound 04/13/17 0000 Signed Impressions: Service Date/Time: Thursday, April 13, 2017 17:56 - CONCLUSION: 1. Venous mapping as above Jamal Nino MD Carotid Artery Ultrasound 04/13/17 0000 Signed Impressions: Service Date/Time: Thursday, April 13, 2017 17:22 - CONCLUSION: No evidence of anatomic or physiologic stenosis. Minimal soft and calcific plaquing of the bulbs and initial segment the internal carotid. Edward Mcallister MD Chest X-Ray 04/12/17 1754 Signed Impressions: Service Date/Time: Wednesday, April 12, 2017 18:04 - CONCLUSION: No acute cardiopulmonary disease. Rachell Hernandez MD Objective Remarks GENERAL: NAD SKIN: Warm and dry. HEAD: Normocephalic. EYES: No scleral icterus. No injection or drainage. NECK: Supple, trachea midline. No JVD or lymphadenopathy. CARDIOVASCULAR: Irregular Regular rate and rhythm without murmurs, gallops, or rubs. RESPIRATORY: Breath sounds equal bilaterally. No accessory muscle use. GASTROINTESTINAL: Abdomen soft, non-tender, nondistended. MUSCULOSKELETAL: No cyanosis, or edema. BACK: Nontender without obvious deformity. No CVA tenderness. Procedures 04/13-left heart catheterization A/P Problem List: (1) ESRD on hemodialysis ICD Code: N18.6 - End stage renal disease; Z99.2 - Dependence on renal dialysis (2) Non-STEMI (non-ST elevated myocardial infarction) ICD Code: I21.4 - Non-ST elevation (NSTEMI) myocardial infarction Status: Acute (3) Paroxysmal atrial fibrillation ICD Code: I48.0 - Paroxysmal atrial fibrillation Status: Acute (4) Ischemic cardiomyopathy ICD Code: I25.5 - Ischemic cardiomyopathy Status: Chronic (5) Hypertension ICD Code: I10 - Hypertension Status: Chronic (6) Diabetes mellitus ICD Code: E11.9 - Diabetes mellitus Status: Chronic Assessment and Plan 56-year-old man with Non-ST elevation MS Status post left heart catheterization 04/13/17 He is not a candidate for surgical revascularization per cardiothoracic surgery 2-D echo with EF 25% Continue medical management with beta darwin, aspirin, Lipitor Paroxysmal A. fib with RVR Appreciate input from cardiology Currently on amiodarone drip and will transition to by mouth 200 mg twice a day Continue with Coumadin and monitor INR/PT Ischemic cardiomyopathy EF~25% Continue with Coreg 25 mg twice a day, Cozaar 50 mg daily Hypertension Currently on Coreg 25 mg twice a day, 0.1 mg twice a day, hydralazine 50 mg twice a day, Cozaar 50 mg daily History of chronic systolic CHF Continue with beta darwin, Imdur 60 mg daily Hyperlipidemia LDL 46 Continue Pravachol 80 mg at bedtime End-stage renal disease on hemodialysis Appreciate input from nephrology On HD Tuesday and Tuesday Diabetes type 2 Currently on high insulin sliding scale with fingerstick blood glucose monitoring Resume Levemir 30 units at bedtime DVT prophylaxis: Coumadin Transfer patient to CICU after hemodialysis Problem Qualifiers (1) Hypertension: Qualified Codes: I10 - Essential (primary) hypertension Jaylan Mendez MD Apr 16, 2017 11:39
--- NOTE | 2017-04-16 12:20 | HHI.NPPN ---
Subjective History of Present Illness 56-year-old male known to me from before with past medical history of hypertension, chronic anemia, diabetes mellitus, end-stage renal disease on hemodialysis three times per week came to the hospital with complaint of recurrent retrosternal chest pain. I was called to see the patient for management of hemodialysis. He has been on hemodialysis Tuesday, and Tuesday. Additional Remarks Patient is alert, no chest pain, no SOB, now on HD, eating better. Objective Data Data Vital Signs Date Time Temp Pulse Resp B/P (MAP) Pulse Ox O2 Delivery O2 Flow Rate FiO2 04/16/17 10:00 70 04/16/17 08:00 75 04/16/17 08:00 99.4 75 16 125/76 (92) 04/16/17 07:19 Nasal Cannula 2.00 04/16/17 06:00 72 04/16/17 04:00 98.3 74 11 135/62 (86) 100 04/16/17 04:00 74 04/16/17 02:00 72 04/16/17 00:00 72 04/16/17 00:00 98.1 72 17 138/73 (94) 99 04/15/17 22:41 79 129/71 04/15/17 22:00 75 04/15/17 21:00 99 Nasal Cannula 2.00 04/15/17 20:00 97.8 81 15 137/73 (94) 98 04/15/17 20:00 81 04/15/17 18:00 81 04/15/17 17:00 73 04/15/17 16:00 74 04/15/17 16:00 74 17 158/83 (108) 100 04/15/17 16:00 98.0 74 17 158/83 (108) 100 04/15/17 15:00 74 04/15/17 14:00 74 04/15/17 13:00 70 -: 04/15/17 0647 04/16/17 0333 Physical Exam General Appearance: No Acute Distress, Comfortable Eyes Eye Exam: Pupils Equal Throat Throat Exam: Oral Mucosa [place] & Moist Neck Neck Exam: Neck Supple Pulmonary Resp Exam: Breath Sounds Equal, No Distress, Rhonchi, Decreased Bases Cardiology CV Exam: Regular, Normal Sinus Rhythm Gastrointestinal/Abdomen GI Exam: Soft, Non-Tender, Bowel Sounds Present Extremeties Extremities Exam: Trace Edema Neurologic Neuro Exam: Alert, Awake, Oriented Psychiatric Psych Exam: Appropriate Responses Assessment/Plan Assessment Summary: CHF, Hypertension, End Stage Renal Disease Electrolyte Assessment: Hyperkalemia Problem List: (1) Anemia ICD Codes: D64.9 - Anemia, unspecified Status: Chronic (2) Diabetes mellitus ICD Codes: E11.9 - Diabetes mellitus Status: Chronic (3) HTN (hypertension) ICD Codes: I10 - Essential (primary) hypertension Status: Chronic (4) Non-STEMI (non-ST elevated myocardial infarction) ICD Codes: I21.4 - Non-ST elevation (NSTEMI) myocardial infarction Status: Acute (5) Hyperlipidemia ICD Codes: E78.5 - Hyperlipidemia, unspecified Status: Chronic (6) Systolic CHF, acute ICD Codes: I50.21 - Systolic CHF, acute Status: Acute (7) ESRD (end stage renal disease) ICD Codes: N18.6 - End stage renal disease Status: Acute Plan Patient has NSTEMI, now has no chest pain. BP is stable. Seen by cardiac surgery. Medical Management. HD to continue TTS,K is better after HD. Tolerated HD well, no chest pain during HD. Cardiology follow up noted. HD now, remove fluid as tolerated. Problem Qualifiers (1) Hyperlipidemia: Qualified Codes: E78.2 - Mixed hyperlipidemia Jeana Corona MD Apr 16, 2017 12:20
[2017-04-16] MEDS: EPOETIN ALFA 10,000 UNITS/ML VIAL IV PUSH PRN (12:46)
[2017-04-16] MEDS: CALCIUM ACETATE 667 MG CAP PO SCH ×3 (13:00→17:43)
[2017-04-16] MEDS: hydrALAZINE HCL 50 MG TAB PO SCH ×3 (13:00→17:43)
[2017-04-16] MEDS: GABAPENTIN 100 MG CAP PO SCH ×3 (13:00→17:43)
[2017-04-16] MEDS: SODIUM CHLORIDE 0.9% FLUSH 10 ML FLUSH IV FLUSH SCH ×2 (14:01→21:31)
[2017-04-16] MEDS: LOSARTAN 50 MG TAB PO SCH (14:02)
[2017-04-16] MEDS: cloNIDine HCL 0.1 MG TAB PO SCH ×2 (14:02→21:31)
[2017-04-16] MEDS: ASPIRIN EC 325 MG TABEC PO SCH (14:02)
[2017-04-16] MEDS: CARVEDILOL 12.5 MG TAB PO SCH ×2 (14:03→21:31)
[2017-04-16] MEDS: PRAVASTATIN SOD 80 MG TAB PO SCH (14:03)
[2017-04-16] MEDS: NITROGLYCERIN 2% OINT 1 GM PACKET TOP SCH (14:42)
[2017-04-16] MEDS: WARFARIN SOD 5 MG TAB PO SCH (17:07)
[2017-04-16] MEDS: INSULIN DETEMIR 100 UNITS/ML VIAL SQ SCH (21:33)
[2017-04-17] VITALS (10 sets, daily range): BP systolic 99–123; BP diastolic 55–64; PULSE 67–80; RESP 16–20; TEMP 97.8–100.2; O2SAT 93–98
[2017-04-17] MEDS: CHLORHEXIDINE GLUCONATE 2 % 1 PACK (2 CLOTHS) TOP SCH (04:00)
[2017-04-17] MEDS: ISOSORBIDE MONONITRATE 60 MG TAB PO SCH (06:53)
[2017-04-17] MEDS: NITROGLYCERIN 2% OINT 1 GM PACKET TOP SCH (09:08)
[2017-04-17] MEDS: SODIUM CHLORIDE 0.9% FLUSH 10 ML FLUSH IV FLUSH SCH ×2 (09:08→22:15)
[2017-04-17] MEDS: PRAVASTATIN SOD 80 MG TAB PO SCH (09:08)
[2017-04-17] MEDS: ASPIRIN EC 325 MG TABEC PO SCH (09:08)
[2017-04-17] MEDS: CALCIUM ACETATE 667 MG CAP PO SCH ×3 (09:08→17:29)
[2017-04-17] MEDS: CARVEDILOL 12.5 MG TAB PO SCH ×2 (09:08→22:14)
[2017-04-17] MEDS: GABAPENTIN 100 MG CAP PO SCH ×3 (09:08→17:29)
[2017-04-17] MEDS: cloNIDine HCL 0.1 MG TAB PO SCH ×2 (09:08→22:14)
[2017-04-17] MEDS: LOSARTAN 50 MG TAB PO SCH (09:08)
[2017-04-17] MEDS: hydrALAZINE HCL 50 MG TAB PO SCH ×3 (09:08→17:29)
[2017-04-17] MEDS: AMIODARONE 200 MG TAB PO SCH ×2 (09:08→22:14)
[2017-04-17] MEDS: INSULIN ASPART SUPPLEMENTAL SCALE SQ SCH ×4 (09:09→22:17)
[2017-04-17 09:25] LABS: INTERNATIONAL NORMALIZED RATIO 1.3 RATIO; PROTHROMBIN TIME - PATIENT 14.8 SEC (9.8-11.6)
--- NOTE | 2017-04-17 10:05 | HHI.PR ---
Subjective Remarks Follow-up non-ST elevation HI/paroxysmal A. fib/end-stage renal disease on hemodialysis 04/16/17-patient seen and examined, denies any chest pain or shortness of breath. Currently on amiodarone drip 04/17/17-patient seen and examined, currently rate control on amiodarone by mouth. Patient denies any shortness of breath. Had hemodialysis yesterday. Objective Vitals Vital Signs Date Time Temp Pulse Resp B/P (MAP) Pulse Ox O2 Delivery O2 Flow Rate FiO2 04/17/17 09:18 Nasal Cannula 2.00 04/17/17 08:00 98.2 71 18 118/63 (81) 98 04/17/17 04:00 99.2 75 19 102/55 (71) 98 04/17/17 00:00 100.2 80 20 118/64 (82) 97 04/16/17 20:12 78 04/16/17 20:00 98.7 81 21 127/60 (82) 98 04/16/17 17:45 98.2 70 18 103/59 (74) 99 04/16/17 16:00 98.1 68 17 118/62 (80) 98 04/16/17 16:00 68 04/16/17 14:00 72 04/16/17 12:00 66 04/16/17 12:00 98.2 66 16 129/60 (83) I/O 04/16/17 04/16/17 04/16/17 04/17/17 04/17/17 04/17/17 07:00 15:00 23:00 07:00 15:00 23:00 Intake Total 459 ml 480 ml Output Total 300 ml 2300 ml 20 ml Balance 159 ml -2300 ml -20 ml 480 ml Intake Oral 150 ml 480 ml IV Total 309 ml Output Urine Total 300 ml 20 ml Hemodialysis 2300 ml # Voids 2 # Bowel Movements 0 Result Diagram: 04/15/17 0647 04/16/17 0333 Imaging Last Impressions Lower Extremity Ultrasound 04/13/17 0000 Signed Impressions: Service Date/Time: Thursday, April 13, 2017 17:56 - CONCLUSION: 1. Venous mapping as above Jaaml Nino MD Carotid Artery Ultrasound 04/13/17 0000 Signed Impressions: Service Date/Time: Thursday, April 13, 2017 17:22 - CONCLUSION: No evidence of anatomic or physiologic stenosis. Minimal soft and calcific plaquing of the bulbs and initial segment the internal carotid. Edward Mcallister MD Chest X-Ray 04/12/17 4386 Signed Impressions: Service Date/Time: Wednesday, April 12, 2017 18:04 - CONCLUSION: No acute cardiopulmonary disease. Rachell Hernandez MD Objective Remarks GENERAL: NAD SKIN: Warm and dry. HEAD: Normocephalic. EYES: No scleral icterus. No injection or drainage. NECK: Supple, trachea midline. No JVD or lymphadenopathy. CARDIOVASCULAR: Irregular Regular rate and rhythm without murmurs, gallops, or rubs. RESPIRATORY: Breath sounds equal bilaterally. No accessory muscle use. GASTROINTESTINAL: Abdomen soft, non-tender, nondistended. MUSCULOSKELETAL: No cyanosis, or edema. BACK: Nontender without obvious deformity. No CVA tenderness. Procedures 04/13-left heart catheterization A/P Problem List: (1) ESRD on hemodialysis ICD Code: N18.6 - End stage renal disease; Z99.2 - Dependence on renal dialysis (2) Non-STEMI (non-ST elevated myocardial infarction) ICD Code: I21.4 - Non-ST elevation (NSTEMI) myocardial infarction Status: Acute (3) Paroxysmal atrial fibrillation ICD Code: I48.0 - Paroxysmal atrial fibrillation Status: Acute (4) Ischemic cardiomyopathy ICD Code: I25.5 - Ischemic cardiomyopathy Status: Chronic (5) Hypertension ICD Code: I10 - Hypertension Status: Chronic (6) Diabetes mellitus ICD Code: E11.9 - Diabetes mellitus Status: Chronic Assessment and Plan 56-year-old man with Non-ST elevation HI Status post left heart catheterization 04/13/17 He is not a candidate for surgical revascularization per cardiothoracic surgery 2-D echo with EF 25% Continue medical management with beta darwin, aspirin, Lipitor Paroxysmal A. fib with RVR Appreciate input from cardiology Currently on amiodarone 200 mg twice a day Continue with Coumadin and monitor INR/PT. INR 1.3 Ischemic cardiomyopathy EF~25% Continue with Coreg 25 mg twice a day, Cozaar 50 mg daily Hypertension Currently on Coreg 25 mg twice a day, 0.1 mg twice a day, hydralazine 50 mg twice a day, Cozaar 50 mg daily History of chronic systolic CHF Continue with beta darwin, Imdur 60 mg daily Hyperlipidemia LDL 46 Continue Pravachol 80 mg at bedtime End-stage renal disease on hemodialysis Appreciate input from nephrology On HD Tuesday and Tuesday Diabetes type 2 Currently on high insulin sliding scale with fingerstick blood glucose monitoring Continue Levemir 30 units at bedtime DVT prophylaxis: Coumadin Problem Qualifiers (1) Hypertension: Qualified Codes: I10 - Essential (primary) hypertension Jaylan Mendez MD Apr 17, 2017 10:05
[2017-04-17] MEDS ORDERED: PRAV80TA PO (10:11)
[2017-04-17] MEDS ORDERED: ALPR.25 PO (10:11)
[2017-04-17] MEDS ORDERED: AMIO200T PO (10:11)
[2017-04-17] MEDS ORDERED: ISOS60TA PO (10:11)
[2017-04-17] MEDS ORDERED: COUM5TAB PO (10:11)
[2017-04-17] MEDS ORDERED: NITR0.4S SL (10:11)
--- NOTE | 2017-04-17 10:18 | HHI.DS ---
Discharge Summary Admission Date Apr 12, 2017 at 19:39 Admitting Diagnosis NSTEMI, ESRD, HD dependent (1) ESRD on hemodialysis ICD Code: N18.6 - End stage renal disease; Z99.2 - Dependence on renal dialysis (2) Non-STEMI (non-ST elevated myocardial infarction) ICD Code: I21.4 - Non-ST elevation (NSTEMI) myocardial infarction Status: Acute (3) Paroxysmal atrial fibrillation ICD Code: I48.0 - Paroxysmal atrial fibrillation Status: Acute (4) Ischemic cardiomyopathy ICD Code: I25.5 - Ischemic cardiomyopathy Status: Chronic (5) Hypertension ICD Code: I10 - Hypertension Status: Chronic (6) Diabetes mellitus ICD Code: E11.9 - Diabetes mellitus Status: Chronic Procedures 04/13-left heart catheterization Brief History - From Admission 56-year-old male comes with history of substernal chest pain radiating to his right shoulder. Patient says that he's been getting on and off chest pain for past 3-4 days. He has end-stage renal disease with hemodialysis dependence. He was getting hemodialyzed today when he started getting the pain again. He was given 3 sublingual nitroglycerin at the dialysis Center and he was recommended to come to the emergency room. Patient did not want to come at that time and went home instead. At home he continued to get the chest pain and decided to come in. No syncopal episode. Patient says that he had a stress test 2 years ago. No history of coronary artery disease. He was atrial fibrillation on the monitor in the emergency department. No history of previous A. fib. His initial troponin was 10 and the patient is admitted to ICU as a non-ST elevation myocardial infarction. CBC/BMP: 04/15/17 0647 04/16/17 0333 Significant Findings Laboratory Tests Test 04/15/17 06:47 04/16/17 03:33 04/17/17 06:20 Red Blood Count 3.39 MIL/MM3 (4.50-5.90) Hemoglobin 10.9 GM/DL (13.0-17.0) Hematocrit 32.4 % (39.0-51.0) Blood Urea Nitrogen 58 MG/DL (7-18) 79 MG/DL (7-18) Creatinine 8.21 MG/DL (0.60-1.30) 10.76 MG/DL (0.60-1.30) Calcium Level 8.3 MG/DL (8.5-10.1) Phosphorus Level 6.7 MG/DL (2.5-4.9) 8.8 MG/DL (2.5-4.9) Estimat Glomerular Filtration Rate 7 ML/MIN (>89) 5 ML/MIN (>89) Prothrombin Time 12.5 SEC (9.8-11.6) 14.8 SEC (9.8-11.6) Random Glucose 215 MG/DL (74-106) Sodium Level 135 MEQ/L (136-145) Imaging Last Impressions Lower Extremity Ultrasound 04/13/17 0000 Signed Impressions: Service Date/Time: Thursday, April 13, 2017 17:56 - CONCLUSION: 1. Venous mapping as above Jamal Nino MD Carotid Artery Ultrasound 04/13/17 0000 Signed Impressions: Service Date/Time: Thursday, April 13, 2017 17:22 - CONCLUSION: No evidence of anatomic or physiologic stenosis. Minimal soft and calcific plaquing of the bulbs and initial segment the internal carotid. Edward Mcallister MD Chest X-Ray 04/12/17 [id number] Signed Impressions: Service Date/Time: Wednesday, April 12, 2017 18:04 - CONCLUSION: No acute cardiopulmonary disease. Rachell Hernandez MD PE at Discharge GENERAL: NAD SKIN: Warm and dry. HEAD: Normocephalic. EYES: No scleral icterus. No injection or drainage. NECK: Supple, trachea midline. No JVD or lymphadenopathy. CARDIOVASCULAR: Irregular Regular rate and rhythm without murmurs, gallops, or rubs. RESPIRATORY: Breath sounds equal bilaterally. No accessory muscle use. GASTROINTESTINAL: Abdomen soft, non-tender, nondistended. MUSCULOSKELETAL: No cyanosis, or edema. BACK: Nontender without obvious deformity. No CVA tenderness. Hospital Course 56-year-old man admitted to hospital with non-ST elevation OR and underwent left heart catheterization by cardiology. Patient was found to have multivessel disease for which cardiothoracic surgery was consulted, however patient was not deemed to be a candidate for revascularization procedure thus medical management was advised. Patient was also found to be in paroxysmal A. fib with RVR for which she was initially started on IV amiodarone drip which was subsequently switched to by mouth 200 mg twice a day. Nephrology was consulted and patient received hemodialysis in-house. Euglycemic state was achieved with sliding scale insulin and basal insulin as well. Patient was continued on her treatment for other chronic medical conditions. DVT and GI prophylaxis were provided. Pt Condition on Discharge: Stable Discharge Time: > 30 minutes Discharge Instructions Follow up Referrals: Cardiology Nephrology PCP Follow-up - 1 Week New Orders: PT/INR - 2-3 Days New Medications: Alprazolam (Xanax) 0.25 Mg Tab 0.25 MG PO Q8H PRN for ANXIETY, #10 TAB Amiodarone (Amiodarone) 200 Mg Tab 200 MG PO BID for Regulate Heart Beat, #60 TAB 11 Refills Isosorbide Mononitrate ER (Isosorbide Mononitrate ER) 60 Mg Tab 60 MG PO DAILY@07 for Prevent Heart Failure, #30 TAB 3 Refills Nitroglycerin SL (Nitrostat SL) 0.4 Mg Subl 0.4 MG SL UNSCH PRN for CHEST PAIN, #30 MG Pravastatin (Pravachol) 80 Mg Tab 80 MG PO DAILY for Cholesterol Management, #30 TAB 11 Refills Warfarin (Coumadin) 5 Mg Tab 5 MG PO DAILY@1600 for Prevent Blood Clot, #30 TAB 11 Refills Continued Medications: Aspirin DR (Aspirin 81) 81 Mg Tabdr 81 MG PO DAILY, TAB 0 Refills Calcium Acetate (Phosphate Bin (Calcium Acetate) 667 Mg Cap 1334 MG PO TID Carvedilol (Carvedilol) 25 Mg Tab 25 MG PO BID, #60 TAB 0 Refills Clonidine (Clonidine) 0.1 Mg Tab 0.1 MG PO BID for Blood Pressure Management, #60 TAB 0 Refills Gabapentin (Neurontin) 100 Mg Cap 100 MG PO TID, #90 CAP 0 Refills Hydralazine HCl (Hydralazine HCl) 50 Mg Tablet 50 MG PO TID Insulin Aspart Inj (Novolog Inj) 1,000 Unit/10 Ml Vial 15 UNITS SQ TID for Blood Sugar Management, #10 ML 0 Refills Insulin Detemir Inj (Levemir Inj) 1,000 unit/ 10 ML Vial 30 UNITS SQ HS for Blood Sugar Management, VIAL 0 Refills Do not mix with any other Insulin. Losartan (Losartan) 50 Mg Tab 50 MG PO DAILY for Blood Pressure Management, #30 TAB 0 Refills Discontinued Medications: Losartan (Losartan) 100 Mg Tab 100 MG PO HS for Blood Pressure Management, #30 TAB 0 Refills Simvastatin (Simvastatin) 40 Mg Tab 40 MG PO DAILY for Cholesterol Management, #30 TAB 0 Refills Jaylan Mendez MD Apr 17, 2017 10:18
--- NOTE | 2017-04-17 10:19 | HHI.FF ---
Face to Face Verification Diagnosis: (1) Non-STEMI (non-ST elevated myocardial infarction) (2) ESRD on hemodialysis (3) Ischemic cardiomyopathy (4) Paroxysmal atrial fibrillation Physical Therapy Order: Evaluate and Treat Home Health Nursing Order: Signs/symptoms of disease process Medication education-adverse effect Instructions: Monitoring of INR/PT every 3 days until seen by PCP I have seen patient Dandy Singleton on 04/17/17. My clinical findings support the need for the requested home health care services because: Deconditioned w/ increased weakness I certify that my clinical findings support that this patient is homebound because: Poor cardiac reserve Jaylan Mendez MD Apr 17, 2017 10:19
--- NOTE | 2017-04-17 11:50 | HHI.NPPN ---
Subjective History of Present Illness 56-year-old male known to me from before with past medical history of hypertension, chronic anemia, diabetes mellitus, end-stage renal disease on hemodialysis three times per week came to the hospital with complaint of recurrent retrosternal chest pain. I was called to see the patient for management of hemodialysis. He has been on hemodialysis Tuesday, and Tuesday. Additional Remarks Patient is alert, feeling better no chest pain, no SOB. Objective Data Data Vital Signs Date Time Temp Pulse Resp B/P (MAP) Pulse Ox O2 Delivery O2 Flow Rate FiO2 04/17/17 10:18 93 Nasal Cannula 2.00 04/17/17 09:18 67 04/17/17 09:18 Nasal Cannula 2.00 04/17/17 08:00 98.2 71 18 118/63 (81) 98 04/17/17 04:00 99.2 75 19 102/55 (71) 98 04/17/17 00:00 100.2 80 20 118/64 (82) 97 04/16/17 20:12 78 04/16/17 20:00 98.7 81 21 127/60 (82) 98 04/16/17 17:45 98.2 70 18 103/59 (74) 99 04/16/17 16:00 98.1 68 17 118/62 (80) 98 04/16/17 16:00 68 04/16/17 14:00 72 04/16/17 12:00 66 04/16/17 12:00 98.2 66 16 129/60 (83) -: 04/15/17 0647 04/16/17 0333 Physical Exam General Appearance: No Acute Distress, Comfortable Eyes Eye Exam: Pupils Equal Throat Throat Exam: Oral Mucosa [place] & Moist Neck Neck Exam: Neck Supple Pulmonary Resp Exam: Breath Sounds Equal, No Distress, Rhonchi, Decreased Bases Cardiology CV Exam: Regular, Normal Sinus Rhythm Gastrointestinal/Abdomen GI Exam: Soft, Non-Tender, Bowel Sounds Present Extremeties Extremities Exam: Trace Edema Neurologic Neuro Exam: Alert, Awake, Oriented Psychiatric Psych Exam: Appropriate Responses Assessment/Plan Assessment Summary: CHF, Hypertension, End Stage Renal Disease Electrolyte Assessment: Hyperkalemia Problem List: (1) Anemia ICD Codes: D64.9 - Anemia, unspecified Status: Chronic (2) Diabetes mellitus ICD Codes: E11.9 - Diabetes mellitus Status: Chronic (3) HTN (hypertension) ICD Codes: I10 - Essential (primary) hypertension Status: Chronic (4) Non-STEMI (non-ST elevated myocardial infarction) ICD Codes: I21.4 - Non-ST elevation (NSTEMI) myocardial infarction Status: Acute (5) Hyperlipidemia ICD Codes: E78.5 - Hyperlipidemia, unspecified Status: Chronic (6) Systolic CHF, acute ICD Codes: I50.21 - Systolic CHF, acute Status: Acute (7) ESRD (end stage renal disease) ICD Codes: N18.6 - End stage renal disease Status: Acute Plan Patient has NSTEMI, now has no chest pain. BP is stable. Seen by cardiac surgery. Medical Management. HD to continue TTS,K is better after HD. Tolerated HD well yesterday. Cardiology follow up noted. Need to get PT and Mobilize himself. Problem Qualifiers (1) Hyperlipidemia: Qualified Codes: E78.2 - Mixed hyperlipidemia Jeana Corona MD Apr 17, 2017 11:50
--- NOTE | 2017-04-17 14:32 | PD.CARD.PN ---
Subjective Subjective Remarks Pt feels well, no complaints. Objective Medications Current Medications Medications (Trade) Dose Ordered Sig/Taj Route Start Time Stop Time Status Last Admin (NS Flush) 2 ml UNSCH PRN IVF 04/12/17 18:00 (Phoslo) 1,334 mg TID PO 04/13/17 09:00 04/17/17 13:09 (Coreg) 25 mg BID PO 04/12/17 21:00 04/17/17 09:08 (Catapres) 0.1 mg BID PO 04/12/17 21:00 04/17/17 09:08 (Neurontin) 100 mg TID PO 04/13/17 09:00 04/17/17 13:09 (Apresoline) 50 mg TID PO 04/13/17 09:00 04/17/17 13:09 (Cozaar) 50 mg DAILY PO 04/13/17 09:00 04/17/17 09:08 (Pravachol) 80 mg DAILY PO 04/13/17 09:00 04/17/17 09:08 (NS Flush) 2 ml BID IV FLUSH 04/12/17 21:00 04/17/17 09:08 (NS Flush) 2 ml UNSCH PRN IV FLUSH 04/12/17 20:15 (Ecotrin Ec) 325 mg DAILY PO 04/13/17 09:00 04/17/17 09:08 (Nitroglycerin 2% Oint) 1 inch DAILY TOP 04/13/17 09:00 04/17/17 09:08 (Morphine Inj) 2 mg Q3H PRN IV PUSH 04/12/17 20:15 04/14/17 19:43 (Tylenol) 650 mg Q6H PRN PO 04/12/17 20:15 (Colace) 100 mg BID PRN PO 04/12/17 20:15 (Xanax) 0.25 mg Q8H PRN PO 04/12/17 20:15 04/12/17 22:35 (Zofran Inj) 4 mg Q6H PRN IV PUSH 04/12/17 20:15 Miscellaneous Information 1 Q361D XX 04/12/17 20:15 04/12/17 22:00 (Chlorhexidine 2% Cloth) 3 pack Taper DAILY@04 TOP 04/13/17 04:00 04/09/18 03:59 04/16/17 04:00 (Chlorhexidine 2% Cloth) 3 pack UNSCH PRN TOP 04/12/17 20:15 (D50w (Vial) Inj) 50 ml UNSCH PRN IV PUSH 04/12/17 21:15 (Glucagon Inj) 1 mg UNSCH PRN OTHER 04/12/17 21:15 (NovoLOG SUPPLEMENTAL SCALE) 1 ACHS SLIDING SCALE SQ 04/13/17 08:00 04/17/17 13:10 (Atropine Inj) 0.5 mg UNSCH PRN IV 04/13/17 10:45 Sodium Chloride 1,000 ml @ 0 mls/hr Q0M PRN OTHER 04/13/17 17:19 (Heparin Inj) 8,000 units UNSCH PRN IV FLUSH 04/13/17 17:30 Sodium Chloride 1,000 ml @ 200 mls/hr Q5H PRN IV 04/13/17 17:19 Sodium Chloride 1,000 ml @ 0 mls/hr Q0M PRN OTHER 04/13/17 17:19 (Mannitol Inj) 12.5 gm UNSCH PRN IV 04/13/17 17:30 Albumin Human 100 ml @ 60 mls/hr UNSCH PRN IV 04/13/17 17:30 (NS Flush) 5 ml UNSCH PRN IV FLUSH 04/13/17 17:30 (Heparin Inj) UNSCH PRN .XX 04/13/17 17:30 (Gentamicin (Dialysis) Inj) 20 mg UNSCH PRN OTHER 04/13/17 17:30 (Zofran Inj) 4 mg UNSCH PRN IV PUSH 04/13/17 17:30 (Tylenol) 650 mg UNSCH PRN PO 04/13/17 17:30 (Benadryl) 25 mg UNSCH PRN PO 04/13/17 17:30 (Nitrostat Sl) 0.4 mg UNSCH PRN SL 04/13/17 17:30 (Catapres) 0.1 mg UNSCH PRN PO 04/13/17 17:30 (Epogen Inj) 6,000 units UNSCH PRN IV PUSH 04/13/17 17:30 04/16/17 12:46 (Gelfoam 12 Mm/7 Mm Top) 1 foam UNSCH PRN TOP 04/13/17 17:30 04/14/17 09:05 (Imdur) 60 mg DAILY@07 PO 04/15/17 07:00 04/17/17 06:53 (Coumadin) 5 mg DAILY@1600 PO 04/15/17 16:00 04/16/17 17:07 (Cordarone) 200 mg BID PO 04/15/17 21:00 04/17/17 09:08 (Levemir Inj) 30 units HS SQ 04/16/17 21:00 04/16/17 21:33 Vital Signs / I&O Vital Signs Date Time Temp Pulse Resp B/P (MAP) Pulse Ox O2 Delivery O2 Flow Rate FiO2 04/17/17 13:12 98 Room Air 04/17/17 12:00 98.0 68 18 123/62 (82) 98 04/17/17 10:18 93 Nasal Cannula 2.00 04/17/17 09:18 67 04/17/17 09:18 Nasal Cannula 2.00 04/17/17 08:00 98.2 71 18 118/63 (81) 98 04/17/17 04:00 99.2 75 19 102/55 (71) 98 04/17/17 00:00 100.2 80 20 118/64 (82) 97 04/16/17 20:12 78 04/16/17 20:00 98.7 81 21 127/60 (82) 98 04/16/17 17:45 98.2 70 18 103/59 (74) 99 04/16/17 16:00 98.1 68 17 118/62 (80) 98 04/16/17 16:00 68 I/O 04/16/17 04/16/17 04/16/17 04/17/17 04/17/17 04/17/17 07:00 15:00 23:00 07:00 15:00 23:00 Intake Total 459 ml 480 ml Output Total 300 ml 2300 ml 20 ml Balance 159 ml -2300 ml -20 ml 480 ml Intake Oral 150 ml 480 ml IV Total 309 ml Output Urine Total 300 ml 20 ml Hemodialysis 2300 ml # Voids 2 # Bowel Movements 0 Physical Exam GENERAL: This is a well-nourished, well-developed patient, in no apparent distress. CARDIOVASCULAR: Regular rate and rhythm without murmurs, gallops, or rubs. RESPIRATORY: Clear to auscultation. Breath sounds equal bilaterally. No wheezes , rales, or rhonchi. GASTROINTESTINAL: Abdomen soft, non-tender, nondistended. Normal active bowel sounds MUSCULOSKELETAL: Extremities without clubbing, cyanosis, or edema. NEURO: Alert & Oriented x4 to person, place, time, situation. Moves all ext x4 Laboratory Laboratory Tests Test 04/17/17 06:20 Prothrombin Time 14.8 SEC Prothromb Time International Ratio 1.3 RATIO Imaging Last Impressions Lower Extremity Ultrasound 04/13/17 0000 Signed Impressions: Service Date/Time: Thursday, April 13, 2017 17:56 - CONCLUSION: 1. Venous mapping as above Jamal Nino MD Carotid Artery Ultrasound 04/13/17 0000 Signed Impressions: Service Date/Time: Thursday, April 13, 2017 17:22 - CONCLUSION: No evidence of anatomic or physiologic stenosis. Minimal soft and calcific plaquing of the bulbs and initial segment the internal carotid. Edward Mcallister MD Chest X-Ray 04/12/17 8294 Signed Impressions: Service Date/Time: Wednesday, April 12, 2017 18:04 - CONCLUSION: No acute cardiopulmonary disease. Rachell Hernandez MD Assessment and Plan Problem List: (1) Non-STEMI (non-ST elevated myocardial infarction) ICD Codes: I21.4 - Non-ST elevation (NSTEMI) myocardial infarction Status: Acute Plan: Discussed with Dr. Rayo who will discuss high-risk stenting w/ the patient, will stop warfarin (2) Paroxysmal atrial fibrillation ICD Codes: I48.0 - Paroxysmal atrial fibrillation Status: Acute Plan: will stop warfarin in anticipation of cath (3) Ischemic cardiomyopathy ICD Codes: I25.5 - Ischemic cardiomyopathy Status: Chronic Plan: EF ~25%. Overall compensated. No overt CHF. Rec continue beta darwin , ARB. (4) Hypertension ICD Codes: I10 - Hypertension Status: Chronic (5) Hyperlipidemia ICD Codes: E78.5 - Hyperlipidemia, unspecified Status: Chronic Assessment and Plan Dr. Rayo will see tomorrow to discuss cath. Problem Qualifiers (1) Hypertension: Qualified Codes: I10 - Essential (primary) hypertension (2) Hyperlipidemia: Qualified Codes: E78.2 - Mixed hyperlipidemia Ramos Navarrete MD Apr 17, 2017 14:32
[2017-04-17 19:36] LABS: BICARBONATE 25.7 MEQ/L (21.0-32.0); POTASSIUM 4.7 MEQ/L (3.5-5.1)
[2017-04-17] MEDS: INSULIN DETEMIR 100 UNITS/ML VIAL SQ SCH (22:16)
[2017-04-18] VITALS (8 sets, daily range): BP systolic 100–131; BP diastolic 55–73; PULSE 63–70; RESP 17–18; TEMP 97.3–98.7; O2SAT 96–98
[2017-04-18] MEDS: CHLORHEXIDINE GLUCONATE 2 % 1 PACK (2 CLOTHS) TOP SCH (04:00)
[2017-04-18] MEDS: ISOSORBIDE MONONITRATE 60 MG TAB PO SCH (06:32)
[2017-04-18 07:30] LABS: HEMATOCRIT 29.4 % (39.0-51.0); INTERNATIONAL NORMALIZED RATIO 1.3 RATIO; MEAN CELL VOLUME 94.4 FL (80.0-100.0); MEAN CORPUSCULAR HEMOGLOBIN 31.7 PG (27.0-34.0); MEAN CORPUSCULAR HGB CONC 33.5 % (32.0-36.0); PLATELET COUNT 174 TH/MM3 (150-450); PROTHROMBIN TIME - PATIENT 14.1 SEC (9.8-11.6); RED BLOOD COUNT 3.11 MIL/MM3 (4.50-5.90); RED CELL DISTRIBUTION WIDTH 13.9 % (11.6-17.2); REVIEW FLAG FINAL; WHITE BLOOD COUNT 7.1 TH/MM3 (4.0-11.0)
[2017-04-18] MEDS: cloNIDine HCL 0.1 MG TAB PO SCH ×2 (09:00→20:48)
[2017-04-18] MEDS: hydrALAZINE HCL 50 MG TAB PO SCH ×3 (09:00→17:15)
[2017-04-18] MEDS: CARVEDILOL 12.5 MG TAB PO SCH ×2 (09:00→20:48)
[2017-04-18] MEDS: LOSARTAN 50 MG TAB PO SCH (09:00)
[2017-04-18] MEDS: CALCIUM ACETATE 667 MG CAP PO SCH ×3 (09:27→17:15)
[2017-04-18] MEDS: PRAVASTATIN SOD 80 MG TAB PO SCH (09:27)
[2017-04-18] MEDS: ASPIRIN EC 325 MG TABEC PO SCH (09:27)
[2017-04-18] MEDS: GABAPENTIN 100 MG CAP PO SCH ×3 (09:28→17:15)
[2017-04-18] MEDS: AMIODARONE 200 MG TAB PO SCH ×2 (09:28→20:52)
[2017-04-18] MEDS: NITROGLYCERIN 2% OINT 1 GM PACKET TOP SCH (09:29)
[2017-04-18] MEDS: SODIUM CHLORIDE 0.9% FLUSH 10 ML FLUSH IV FLUSH SCH ×2 (09:30→20:48)
[2017-04-18] MEDS: INSULIN ASPART SUPPLEMENTAL SCALE SQ SCH ×4 (09:43→20:47)
--- NOTE | 2017-04-18 09:58 | RSPPFT ---
DATE OF PROCEDURE: 04/14/17 COMMENTS: Spirometry with FVC of 2.1, FEV1 of 1.9, FEV1/FVC ratio at 93%. IMPRESSION: 1. Decreased flow rates. 2. No evidence of airways obstruction. 3. Possible airways restriction. 4. If clinically warranted, lung volumes may be helpful.
--- NOTE | 2017-04-18 10:03 | HHI.PR ---
Subjective Remarks Written by Hilda Galaviz, acting as scribe for Dr. Mendez on 04/18/17 at 10: 03. Follow-up patient with NSTEMI, paroxysmal atrial fibrillation and end-stage renal disease on HD. Patient seen and examined today. Denies any chest pain or shortness of breath. Denies any nausea, vomiting or abdominal pain. Denies any urinary difficulties, diarrhea or constipation. Does report that his knees are stiff. Discussed with Sharlene LANDERS, BP low this morning. Will give amiodarone, hold other BP meds for now and follow-up on repeat BP measurement around 11:00. Objective Vitals Vital Signs Date Time Temp Pulse Resp B/P (MAP) Pulse Ox O2 Delivery O2 Flow Rate FiO2 04/18/17 08:17 98.5 70 17 115/61 (79) 98 04/18/17 08:05 97 04/18/17 04:00 97.8 66 18 100/55 (70) 96 04/18/17 00:00 97.3 70 18 126/66 (86) 97 04/17/17 22:00 94 21 04/17/17 20:00 97.8 68 16 115/60 (78) 97 04/17/17 20:00 Room Air 04/17/17 19:56 69 04/17/17 16:00 98.0 67 18 99/55 (70) 97 04/17/17 13:12 98 Room Air 04/17/17 12:00 98.0 68 18 123/62 (82) 98 04/17/17 10:18 93 Nasal Cannula 2.00 I/O 04/17/17 04/17/17 04/17/17 04/18/17 04/18/17 04/18/17 07:00 15:00 23:00 07:00 15:00 23:00 Intake Total 480 ml 480 ml Balance 480 ml 480 ml Intake Oral 480 ml 480 ml # Voids 2 1 # Bowel Movements 0 Result Diagram: 04/18/17 0550 04/17/17 1831 Imaging Last Impressions Lower Extremity Ultrasound 04/13/17 0000 Signed Impressions: Service Date/Time: Thursday, April 13, 2017 17:56 - CONCLUSION: 1. Venous mapping as above Jamal Nino MD Carotid Artery Ultrasound 04/13/17 0000 Signed Impressions: Service Date/Time: Thursday, April 13, 2017 17:22 - CONCLUSION: No evidence of anatomic or physiologic stenosis. Minimal soft and calcific plaquing of the bulbs and initial segment the internal carotid. Edward Mcallister MD Chest X-Ray 04/12/17 1664 Signed Impressions: Service Date/Time: Wednesday, April 12, 2017 18:04 - CONCLUSION: No acute cardiopulmonary disease. Rachell Hernandez MD Objective Remarks GENERAL: Well-nourished, well-developed patient in NAD. Sitting in bedside chair. Awake and alert. Appears comfortable. SKIN: Warm and dry. No rash. HEAD: Normocephalic. Atraumatic. EYES: EOMI. No scleral icterus. No injection or drainage. ENT: No nasal bleeding or discharge. Mucous membranes pink and moist. NECK: Supple. Trachea midline. CARDIOVASCULAR: Irregular. S1, S2 noted. No murmur appreciated. RESPIRATORY: No accessory muscle use. Clear to auscultation. Breath sounds equal bilaterally. GASTROINTESTINAL: Abdomen soft, non-tender, nondistended. Normoactive bowel sounds x4. MUSCULOSKELETAL: No obvious deformities. Extremities without clubbing, cyanosis , or edema. NEUROLOGICAL: Awake and alert. Able to move all extremities. Nonfocal. Normal speech. PSYCHIATRIC: Appropriate mood and affect; insight and judgment normal. Procedures 04/13-left heart catheterization Medications and IVs Current Medications Medications (Trade) Dose Ordered Sig/Taj Route Start Time Stop Time Status Last Admin (NS Flush) 2 ml UNSCH PRN IVF 04/12/17 18:00 (Phoslo) 1,334 mg TID PO 04/13/17 09:00 04/18/17 09:27 (Coreg) 25 mg BID PO 04/12/17 21:00 04/17/17 22:14 (Catapres) 0.1 mg BID PO 04/12/17 21:00 04/17/17 22:14 (Neurontin) 100 mg TID PO 04/13/17 09:00 04/18/17 09:28 (Apresoline) 50 mg TID PO 04/13/17 09:00 04/17/17 13:09 (Cozaar) 50 mg DAILY PO 04/13/17 09:00 04/17/17 09:08 (Pravachol) 80 mg DAILY PO 04/13/17 09:00 04/18/17 09:27 (NS Flush) 2 ml BID IV FLUSH 04/12/17 21:00 04/18/17 09:30 (NS Flush) 2 ml UNSCH PRN IV FLUSH 04/12/17 20:15 (Ecotrin Ec) 325 mg DAILY PO 04/13/17 09:00 04/18/17 09:27 (Nitroglycerin 2% Oint) 1 inch DAILY TOP 04/13/17 09:00 04/18/17 09:29 (Morphine Inj) 2 mg Q3H PRN IV PUSH 04/12/17 20:15 04/14/17 19:43 (Tylenol) 650 mg Q6H PRN PO 04/12/17 20:15 (Colace) 100 mg BID PRN PO 04/12/17 20:15 (Xanax) 0.25 mg Q8H PRN PO 04/12/17 20:15 04/12/17 22:35 (Zofran Inj) 4 mg Q6H PRN IV PUSH 04/12/17 20:15 Miscellaneous Information 1 Q361D XX 04/12/17 20:15 04/12/17 22:00 (Chlorhexidine 2% Cloth) Taper DAILY@04 TOP 04/13/17 04:00 04/09/18 03:59 04/16/17 04:00 (Chlorhexidine 2% Cloth) 3 pack UNSCH PRN TOP 04/12/17 20:15 (D50w (Vial) Inj) 50 ml UNSCH PRN IV PUSH 04/12/17 21:15 (Glucagon Inj) 1 mg UNSCH PRN OTHER 04/12/17 21:15 (NovoLOG SUPPLEMENTAL SCALE) 1 ACHS SLIDING SCALE SQ 04/13/17 08:00 04/18/17 09:43 (Atropine Inj) 0.5 mg UNSCH PRN IV 04/13/17 10:45 Sodium Chloride 1,000 ml @ 0 mls/hr Q0M PRN OTHER 04/13/17 17:19 (Heparin Inj) 8,000 units UNSCH PRN IV FLUSH 04/13/17 17:30 Sodium Chloride 1,000 ml @ 200 mls/hr Q5H PRN IV 04/13/17 17:19 Sodium Chloride 1,000 ml @ 0 mls/hr Q0M PRN OTHER 04/13/17 17:19 (Mannitol Inj) 12.5 gm UNSCH PRN IV 04/13/17 17:30 Albumin Human 100 ml @ 60 mls/hr UNSCH PRN IV 04/13/17 17:30 (NS Flush) 5 ml UNSCH PRN IV FLUSH 04/13/17 17:30 (Heparin Inj) UNSCH PRN .XX 04/13/17 17:30 (Gentamicin (Dialysis) Inj) 20 mg UNSCH PRN OTHER 04/13/17 17:30 (Zofran Inj) 4 mg UNSCH PRN IV PUSH 04/13/17 17:30 (Tylenol) 650 mg UNSCH PRN PO 04/13/17 17:30 (Benadryl) 25 mg UNSCH PRN PO 04/13/17 17:30 (Nitrostat Sl) 0.4 mg UNSCH PRN SL 04/13/17 17:30 (Catapres) 0.1 mg UNSCH PRN PO 04/13/17 17:30 (Epogen Inj) 6,000 units UNSCH PRN IV PUSH 04/13/17 17:30 04/16/17 12:46 (Gelfoam 12 Mm/7 Mm Top) 1 foam UNSCH PRN TOP 04/13/17 17:30 04/14/17 09:05 (Imdur) 60 mg DAILY@07 PO 04/15/17 07:00 04/18/17 06:32 (Cordarone) 200 mg BID PO 04/15/17 21:00 04/18/17 09:28 (Levemir Inj) 30 units HS SQ 04/16/17 21:00 04/17/17 22:16 A/P Problem List: (1) ESRD on hemodialysis ICD Code: N18.6 - End stage renal disease; Z99.2 - Dependence on renal dialysis (2) Non-STEMI (non-ST elevated myocardial infarction) ICD Code: I21.4 - Non-ST elevation (NSTEMI) myocardial infarction Status: Acute (3) Paroxysmal atrial fibrillation ICD Code: I48.0 - Paroxysmal atrial fibrillation Status: Acute (4) Ischemic cardiomyopathy ICD Code: I25.5 - Ischemic cardiomyopathy Status: Chronic (5) Hypertension ICD Code: I10 - Hypertension Status: Chronic (6) Diabetes mellitus ICD Code: E11.9 - Diabetes mellitus Status: Chronic Assessment and Plan 56-year-old man with Non-ST elevation AR Status post left heart catheterization 04/13/17 He is not a candidate for surgical revascularization per cardiothoracic surgery 2-D echo with EF 25% Continue medical management with beta darwin, aspirin, Lipitor Per cardiology, patient to be evaluated by Dr. Rayo today to discuss possible high risk stenting Paroxysmal A. fib with RVR Appreciate input from cardiology Currently on amiodarone 200 mg twice a day Warfarin on hold per cardiology in anticipation of catheterization. We will resume per cardiology and follow INR. INR 1.3 today. Ischemic cardiomyopathy EF~25% Continue with Coreg 25 mg twice a day, Cozaar 50 mg daily Hypertension Hypotensive this morning Currently on Coreg 25 mg twice a day, Clonidine 0.1 mg twice a day, hydralazine 50 mg TID, Cozaar 50 mg daily currently on hold due to hypotension. Patient given dose of Imdur 60 mg this am. Discussed with Sharlene LANDERS, will have BP measurement rechecked around 11 this morning Continue to monitor BP History of chronic systolic CHF Continue with beta darwin, Imdur 60 mg daily. Beta darwin currently on hold due to hypotension. HR 70. Monitor for signs of fluid overload Hyperlipidemia LDL 46 Continue Pravachol 80 mg at bedtime End-stage renal disease on hemodialysis Appreciate input from nephrology On HD Tuesday and Tuesday Anemia - Epogen injections per nephrology - Monitor as indicated Diabetes type 2 Currently on high insulin sliding scale with fingerstick blood glucose monitoring Continue Levemir 30 units at bedtime DVT prophylaxis: Coumadin on hold This note was transcribed by telly Galaviz. I, Dr. Jaylan Mendez personally performed the history, physical exam, and medical decision making; and confirmed the accuracy of the information in the transcribed note. Authenticated by Dr. Jaylan Mnedez on 04/18/17 at 10:03. Discharge Planning Per cardiology recommendations Problem Qualifiers (1) Hypertension: Qualified Codes: I10 - Essential (primary) hypertension Hilda Galaviz Apr 18, 2017 10:03 Jaylan Mendez MD Apr 18, 2017 10:05
--- NOTE | 2017-04-18 13:50 | PD.CARD.PN ---
Subjective Subjective Remarks No chest pain/SOB Objective Medications Current Medications Medications (Trade) Dose Ordered Sig/Taj Route Start Time Stop Time Status Last Admin (NS Flush) 2 ml UNSCH PRN IVF 04/12/17 18:00 (Phoslo) 1,334 mg TID PO 04/13/17 09:00 04/18/17 12:57 (Coreg) 25 mg BID PO 04/12/17 21:00 04/17/17 22:14 (Catapres) 0.1 mg BID PO 04/12/17 21:00 04/17/17 22:14 (Neurontin) 100 mg TID PO 04/13/17 09:00 04/18/17 12:57 (Apresoline) 50 mg TID PO 04/13/17 09:00 04/18/17 12:56 (Cozaar) 50 mg DAILY PO 04/13/17 09:00 04/17/17 09:08 (Pravachol) 80 mg DAILY PO 04/13/17 09:00 04/18/17 09:27 (NS Flush) 2 ml BID IV FLUSH 04/12/17 21:00 04/18/17 09:30 (NS Flush) 2 ml UNSCH PRN IV FLUSH 04/12/17 20:15 (Ecotrin Ec) 325 mg DAILY PO 04/13/17 09:00 04/18/17 09:27 (Nitroglycerin 2% Oint) 1 inch DAILY TOP 04/13/17 09:00 04/18/17 09:29 (Morphine Inj) 2 mg Q3H PRN IV PUSH 04/12/17 20:15 04/14/17 19:43 (Tylenol) 650 mg Q6H PRN PO 04/12/17 20:15 (Colace) 100 mg BID PRN PO 04/12/17 20:15 (Xanax) 0.25 mg Q8H PRN PO 04/12/17 20:15 04/12/17 22:35 (Zofran Inj) 4 mg Q6H PRN IV PUSH 04/12/17 20:15 Miscellaneous Information 1 Q361D XX 04/12/17 20:15 04/12/17 22:00 (Chlorhexidine 2% Cloth) Taper DAILY@04 TOP 04/13/17 04:00 04/09/18 03:59 04/16/17 04:00 (Chlorhexidine 2% Cloth) 3 pack UNSCH PRN TOP 04/12/17 20:15 (D50w (Vial) Inj) 50 ml UNSCH PRN IV PUSH 04/12/17 21:15 (Glucagon Inj) 1 mg UNSCH PRN OTHER 04/12/17 21:15 (NovoLOG SUPPLEMENTAL SCALE) 1 ACHS SLIDING SCALE SQ 04/13/17 08:00 04/18/17 12:57 (Atropine Inj) 0.5 mg UNSCH PRN IV 04/13/17 10:45 Sodium Chloride 1,000 ml @ 0 mls/hr Q0M PRN OTHER 04/13/17 17:19 (Heparin Inj) 8,000 units UNSCH PRN IV FLUSH 04/13/17 17:30 Sodium Chloride 1,000 ml @ 200 mls/hr Q5H PRN IV 04/13/17 17:19 Sodium Chloride 1,000 ml @ 0 mls/hr Q0M PRN OTHER 04/13/17 17:19 (Mannitol Inj) 12.5 gm UNSCH PRN IV 04/13/17 17:30 Albumin Human 100 ml @ 60 mls/hr UNSCH PRN IV 04/13/17 17:30 (NS Flush) 5 ml UNSCH PRN IV FLUSH 04/13/17 17:30 (Heparin Inj) UNSCH PRN .XX 04/13/17 17:30 (Gentamicin (Dialysis) Inj) 20 mg UNSCH PRN OTHER 04/13/17 17:30 (Zofran Inj) 4 mg UNSCH PRN IV PUSH 04/13/17 17:30 (Tylenol) 650 mg UNSCH PRN PO 04/13/17 17:30 (Benadryl) 25 mg UNSCH PRN PO 04/13/17 17:30 (Nitrostat Sl) 0.4 mg UNSCH PRN SL 04/13/17 17:30 (Catapres) 0.1 mg UNSCH PRN PO 04/13/17 17:30 (Epogen Inj) 6,000 units UNSCH PRN IV PUSH 04/13/17 17:30 04/16/17 12:46 (Gelfoam 12 Mm/7 Mm Top) 1 foam UNSCH PRN TOP 04/13/17 17:30 04/14/17 09:05 (Imdur) 60 mg DAILY@07 PO 04/15/17 07:00 04/18/17 06:32 (Cordarone) 200 mg BID PO 04/15/17 21:00 04/18/17 09:28 (Levemir Inj) 30 units HS SQ 04/16/17 21:00 04/17/17 22:16 Vital Signs / I&O Vital Signs Date Time Temp Pulse Resp B/P (MAP) Pulse Ox O2 Delivery O2 Flow Rate FiO2 04/18/17 12:03 98.4 63 18 114/66 (82) 98 04/18/17 08:17 98.5 70 17 115/61 (79) 98 04/18/17 08:07 67 04/18/17 08:05 97 04/18/17 08:00 98 Room Air 04/18/17 04:00 97.8 66 18 100/55 (70) 96 04/18/17 00:00 97.3 70 18 126/66 (86) 97 04/17/17 22:00 94 21 04/17/17 20:00 97.8 68 16 115/60 (78) 97 04/17/17 20:00 Room Air 04/17/17 19:56 69 04/17/17 16:00 98.0 67 18 99/55 (70) 97 I/O 04/17/17 04/17/17 04/17/17 04/18/17 04/18/17 04/18/17 07:00 15:00 23:00 07:00 15:00 23:00 Intake Total 480 ml 480 ml Balance 480 ml 480 ml Intake Oral 480 ml 480 ml # Voids 2 1 # Bowel Movements 0 Physical Exam GENERAL: NAD, AAOx3 SKIN: Warm and dry. HEAD: Atraumatic. Normocephalic. EYES: Pupils equal and round. No scleral icterus. No injection or drainage. ENT: No nasal bleeding or discharge. Mucous membranes pink and moist. NECK: Trachea midline. No JVD. CARDIOVASCULAR: Regular rate and rhythm. RESPIRATORY: No accessory muscle use. Clear to auscultation. Breath sounds equal bilaterally. GASTROINTESTINAL: Abdomen soft, non-tender, nondistended. Hepatic and splenic margins not palpable. MUSCULOSKELETAL: Extremities without clubbing, cyanosis, or edema. No obvious deformities. NEUROLOGICAL: Awake and alert. No obvious cranial nerve deficits. Motor grossly within normal limits. Five out of 5 muscle strength in the arms and legs. Normal speech. PSYCHIATRIC: Appropriate mood and affect; insight and judgment normal. Laboratory Laboratory Tests Test 04/17/17 18:31 04/18/17 05:50 Blood Urea Nitrogen 81 MG/DL Creatinine 11.16 MG/DL Random Glucose 169 MG/DL Calcium Level 9.3 MG/DL Sodium Level 134 MEQ/L Potassium Level 4.7 MEQ/L Chloride Level 93 MEQ/L Carbon Dioxide Level 25.7 MEQ/L Anion Gap 15 MEQ/L Estimat Glomerular Filtration Rate 5 ML/MIN White Blood Count 7.1 TH/MM3 Red Blood Count 3.11 MIL/MM3 Hemoglobin 9.9 GM/DL Hematocrit 29.4 % Mean Corpuscular Volume 94.4 FL Mean Corpuscular Hemoglobin 31.7 PG Mean Corpuscular Hemoglobin Concent 33.5 % Red Cell Distribution Width 13.9 % Platelet Count 174 TH/MM3 Mean Platelet Volume 8.8 FL Prothrombin Time 14.1 SEC Prothromb Time International Ratio 1.3 RATIO Assessment and Plan Problem List: (1) Non-STEMI (non-ST elevated myocardial infarction) ICD Codes: I21.4 - Non-ST elevation (NSTEMI) myocardial infarction Status: Acute (2) Paroxysmal atrial fibrillation ICD Codes: I48.0 - Paroxysmal atrial fibrillation Status: Acute (3) Ischemic cardiomyopathy ICD Codes: I25.5 - Ischemic cardiomyopathy Status: Chronic (4) Hypertension ICD Codes: I10 - Hypertension Status: Chronic (5) Hyperlipidemia ICD Codes: E78.5 - Hyperlipidemia, unspecified Status: Chronic (6) Multi-vessel coronary artery stenosis ICD Codes: I25.10 - Atherosclerotic heart disease of [place] coronary artery without angina pectoris (7) Chest pain ICD Codes: R07.9 - Chest pain Status: Acute (8) Systolic CHF, acute ICD Codes: I50.21 - Systolic CHF, acute Status: Acute Assessment and Plan 1) NSTEMI with MVCAD Turned down for CABG due to no targets 2) Discussed with the patient his options a) Attempt to be listed for cardiac transplant, although not sure if he's a candidate b) High risk stenting of LM/LAD/LCx with Impella placement c) Medical management 3) If high risk stenting, would plan for Tuesday if possible 4) Patient would like to think about it and talk to his brother, I'll try to stop back and discuss with his brother 5) Hold off on Coumadin until decision is made on how to proceed with MVCAD Problem Qualifiers (1) Hypertension: Qualified Codes: I10 - Essential (primary) hypertension (2) Hyperlipidemia: Qualified Codes: E78.2 - Mixed hyperlipidemia José Antonio May DO Apr 18, 2017 13:50
--- NOTE | 2017-04-18 19:36 | HHI.NPPN ---
Subjective History of Present Illness 56-year-old male known to me from before with past medical history of hypertension, chronic anemia, diabetes mellitus, end-stage renal disease on hemodialysis three times per week came to the hospital with complaint of recurrent retrosternal chest pain. I was called to see the patient for management of hemodialysis. He has been on hemodialysis Tuesday, and Tuesday. Additional Remarks Patient is alert, feeling better no chest pain, no SOB, sitting on chair, now off O2. Objective Data Data 04/18/17 04/19/17 19:00 07:00 Intake Total 600 ml Balance 600 ml Intake Oral 600 ml # Voids 2 # Bowel Movements 0 Vital Signs Date Time Temp Pulse Resp B/P (MAP) Pulse Ox O2 Delivery O2 Flow Rate FiO2 04/18/17 16:03 98.7 69 18 131/61 (84) 96 04/18/17 12:03 98.4 63 18 114/66 (82) 98 04/18/17 12:00 98 Room Air 04/18/17 08:17 98.5 70 17 115/61 (79) 98 04/18/17 08:07 67 04/18/17 08:05 97 04/18/17 08:00 98 Room Air 04/18/17 04:00 97.8 66 18 100/55 (70) 96 04/18/17 00:00 97.3 70 18 126/66 (86) 97 04/17/17 22:00 94 21 04/17/17 20:00 97.8 68 16 115/60 (78) 97 04/17/17 20:00 Room Air 04/17/17 19:56 69 -: 04/18/17 0550 04/17/17 1831 Physical Exam General Appearance: No Acute Distress, Comfortable Eyes Eye Exam: Pupils Equal Throat Throat Exam: Oral Mucosa [place] & Moist Neck Neck Exam: Neck Supple Pulmonary Resp Exam: Breath Sounds Equal, No Distress, Rhonchi, Decreased Bases Cardiology CV Exam: Regular, Normal Sinus Rhythm Gastrointestinal/Abdomen GI Exam: Soft, Non-Tender, Bowel Sounds Present Extremeties Extremities Exam: Trace Edema Neurologic Neuro Exam: Alert, Awake, Oriented Psychiatric Psych Exam: Appropriate Responses Assessment/Plan Assessment Summary: CHF, Hypertension, End Stage Renal Disease Electrolyte Assessment: Hyperkalemia Problem List: (1) Anemia ICD Codes: D64.9 - Anemia, unspecified Status: Chronic (2) Diabetes mellitus ICD Codes: E11.9 - Diabetes mellitus Status: Chronic (3) HTN (hypertension) ICD Codes: I10 - Essential (primary) hypertension Status: Chronic (4) Non-STEMI (non-ST elevated myocardial infarction) ICD Codes: I21.4 - Non-ST elevation (NSTEMI) myocardial infarction Status: Acute (5) Hyperlipidemia ICD Codes: E78.5 - Hyperlipidemia, unspecified Status: Chronic (6) Systolic CHF, acute ICD Codes: I50.21 - Systolic CHF, acute Status: Acute (7) ESRD (end stage renal disease) ICD Codes: N18.6 - End stage renal disease Status: Acute Plan Patient has NSTEMI, now has no chest pain. BP is stable. Seen by cardiac surgery. Medical Management. HD to continue TTS,K is better after HD. Cardiology follow up noted. Possible cardiac cath and stent. Problem Qualifiers (1) Hyperlipidemia: Qualified Codes: E78.2 - Mixed hyperlipidemia Jeana Corona MD Apr 18, 2017 19:36
[2017-04-18] MEDS: INSULIN DETEMIR 100 UNITS/ML VIAL SQ SCH (20:49)
[2017-04-19] VITALS (8 sets, daily range): BP systolic 95–139; BP diastolic 54–65; PULSE 62–72; RESP 18–19; TEMP 97.3–98.3; O2SAT 97–98
[2017-04-19] MEDS: CHLORHEXIDINE GLUCONATE 2 % 1 PACK (2 CLOTHS) TOP SCH (04:00)
[2017-04-19] MEDS: ISOSORBIDE MONONITRATE 60 MG TAB PO SCH (06:27)
[2017-04-19] MEDS: INSULIN ASPART SUPPLEMENTAL SCALE SQ SCH ×4 (07:53→21:00)
[2017-04-19] MEDS: GABAPENTIN 100 MG CAP PO SCH ×3 (09:00→17:21)
[2017-04-19] MEDS: hydrALAZINE HCL 50 MG TAB PO SCH ×3 (09:00→17:16)
[2017-04-19] MEDS: CALCIUM ACETATE 667 MG CAP PO SCH ×3 (09:00→17:21)
[2017-04-19] MEDS: EPOETIN ALFA 10,000 UNITS/ML VIAL IV PUSH PRN (10:47)
[2017-04-19] MEDS: CARVEDILOL 12.5 MG TAB PO SCH ×2 (13:36→21:00)
[2017-04-19] MEDS: ASPIRIN EC 325 MG TABEC PO SCH (13:37)
[2017-04-19] MEDS: NITROGLYCERIN 2% OINT 1 GM PACKET TOP SCH (13:37)
[2017-04-19] MEDS: PRAVASTATIN SOD 80 MG TAB PO SCH (13:37)
[2017-04-19] MEDS: AMIODARONE 200 MG TAB PO SCH ×2 (13:37→21:22)
[2017-04-19] MEDS: SODIUM CHLORIDE 0.9% FLUSH 10 ML FLUSH IV FLUSH SCH ×2 (13:37→21:22)
[2017-04-19] MEDS: LOSARTAN 50 MG TAB PO SCH (13:37)
[2017-04-19] MEDS: cloNIDine HCL 0.1 MG TAB PO SCH ×2 (13:37→21:00)
--- NOTE | 2017-04-19 19:23 | PD.CARD.PN ---
Subjective Subjective Remarks No chest pain/SOB Objective Medications Current Medications Medications (Trade) Dose Ordered Sig/Taj Route Start Time Stop Time Status Last Admin (NS Flush) 2 ml UNSCH PRN IVF 04/12/17 18:00 (Phoslo) 1,334 mg TID PO 04/13/17 09:00 04/19/17 17:21 (Coreg) 25 mg BID PO 04/12/17 21:00 04/19/17 13:36 (Catapres) 0.1 mg BID PO 04/12/17 21:00 04/19/17 13:37 (Neurontin) 100 mg TID PO 04/13/17 09:00 04/19/17 17:21 (Apresoline) 50 mg TID PO 04/13/17 09:00 04/19/17 13:37 (Cozaar) 50 mg DAILY PO 04/13/17 09:00 04/19/17 13:37 (Pravachol) 80 mg DAILY PO 04/13/17 09:00 04/19/17 13:37 (NS Flush) 2 ml BID IV FLUSH 04/12/17 21:00 04/19/17 13:37 (NS Flush) 2 ml UNSCH PRN IV FLUSH 04/12/17 20:15 (Ecotrin Ec) 325 mg DAILY PO 04/13/17 09:00 04/19/17 13:37 (Nitroglycerin 2% Oint) 1 inch DAILY TOP 04/13/17 09:00 04/19/17 13:37 (Morphine Inj) 2 mg Q3H PRN IV PUSH 04/12/17 20:15 04/14/17 19:43 (Tylenol) 650 mg Q6H PRN PO 04/12/17 20:15 (Colace) 100 mg BID PRN PO 04/12/17 20:15 (Xanax) 0.25 mg Q8H PRN PO 04/12/17 20:15 04/12/17 22:35 (Zofran Inj) 4 mg Q6H PRN IV PUSH 04/12/17 20:15 Miscellaneous Information 1 Q361D XX 04/12/17 20:15 04/12/17 22:00 (Chlorhexidine 2% Cloth) Taper DAILY@04 TOP 04/13/17 04:00 04/09/18 03:59 04/16/17 04:00 (Chlorhexidine 2% Cloth) 3 pack UNSCH PRN TOP 04/12/17 20:15 (D50w (Vial) Inj) 50 ml UNSCH PRN IV PUSH 04/12/17 21:15 (Glucagon Inj) 1 mg UNSCH PRN OTHER 04/12/17 21:15 (NovoLOG SUPPLEMENTAL SCALE) 1 ACHS SLIDING SCALE SQ 04/13/17 08:00 04/19/17 18:28 (Atropine Inj) 0.5 mg UNSCH PRN IV 04/13/17 10:45 Sodium Chloride 1,000 ml @ 0 mls/hr Q0M PRN OTHER 04/13/17 17:19 (Heparin Inj) 8,000 units UNSCH PRN IV FLUSH 04/13/17 17:30 Sodium Chloride 1,000 ml @ 200 mls/hr Q5H PRN IV 04/13/17 17:19 Sodium Chloride 1,000 ml @ 0 mls/hr Q0M PRN OTHER 04/13/17 17:19 (Mannitol Inj) 12.5 gm UNSCH PRN IV 04/13/17 17:30 Albumin Human 100 ml @ 60 mls/hr UNSCH PRN IV 04/13/17 17:30 (NS Flush) 5 ml UNSCH PRN IV FLUSH 04/13/17 17:30 (Heparin Inj) UNSCH PRN .XX 04/13/17 17:30 (Gentamicin (Dialysis) Inj) 20 mg UNSCH PRN OTHER 04/13/17 17:30 (Zofran Inj) 4 mg UNSCH PRN IV PUSH 04/13/17 17:30 (Tylenol) 650 mg UNSCH PRN PO 04/13/17 17:30 (Benadryl) 25 mg UNSCH PRN PO 04/13/17 17:30 (Nitrostat Sl) 0.4 mg UNSCH PRN SL 04/13/17 17:30 (Catapres) 0.1 mg UNSCH PRN PO 04/13/17 17:30 (Epogen Inj) 6,000 units UNSCH PRN IV PUSH 04/13/17 17:30 04/19/17 10:47 (Gelfoam 12 Mm/7 Mm Top) 1 foam UNSCH PRN TOP 04/13/17 17:30 04/14/17 09:05 (Imdur) 60 mg DAILY@07 PO 04/15/17 07:00 04/19/17 06:27 (Cordarone) 200 mg BID PO 04/15/17 21:00 04/19/17 13:37 (Levemir Inj) 30 units HS SQ 04/16/17 21:00 04/18/17 20:49 Vital Signs / I&O Vital Signs Date Time Temp Pulse Resp B/P (MAP) Pulse Ox O2 Delivery O2 Flow Rate FiO2 04/19/17 16:03 98.2 69 19 105/58 (74) 97 04/19/17 13:45 97.6 72 18 139/65 (89) 04/19/17 13:08 97 04/19/17 08:03 97.7 64 18 115/58 (77) 97 04/19/17 08:00 Room Air 04/19/17 08:00 63 04/19/17 04:00 97.7 64 18 116/61 (79) 97 04/19/17 00:00 97.3 62 18 103/56 (72) 97 04/19/17 00:00 Room Air 04/18/17 20:00 98.0 68 18 111/73 (86) 96 04/18/17 20:00 Room Air 04/18/17 20:00 68 I/O 04/18/17 04/18/17 04/18/17 04/19/17 04/19/17 04/19/17 07:00 15:00 23:00 07:00 15:00 23:00 Intake Total 480 ml 600 ml 360 ml 360 ml Output Total 2700 ml Balance 480 ml 600 ml 360 ml -2340 ml Intake Oral 480 ml 600 ml 360 ml 360 ml Hemodialysis 2700 ml # Voids 1 2 1 1 # Bowel Movements 0 0 0 0 Physical Exam GENERAL: NAD, AAOx3 SKIN: Warm and dry. HEAD: Atraumatic. Normocephalic. EYES: Pupils equal and round. No scleral icterus. No injection or drainage. ENT: No nasal bleeding or discharge. Mucous membranes pink and moist. NECK: Trachea midline. No JVD. CARDIOVASCULAR: Regular rate and rhythm. RESPIRATORY: No accessory muscle use. Clear to auscultation. Breath sounds equal bilaterally. GASTROINTESTINAL: Abdomen soft, non-tender, nondistended. Hepatic and splenic margins not palpable. MUSCULOSKELETAL: Extremities without clubbing, cyanosis, or edema. No obvious deformities. NEUROLOGICAL: Awake and alert. No obvious cranial nerve deficits. Motor grossly within normal limits. Five out of 5 muscle strength in the arms and legs. Normal speech. PSYCHIATRIC: Appropriate mood and affect; insight and judgment normal. Assessment and Plan Problem List: (1) Non-STEMI (non-ST elevated myocardial infarction) ICD Codes: I21.4 - Non-ST elevation (NSTEMI) myocardial infarction Status: Acute (2) Paroxysmal atrial fibrillation ICD Codes: I48.0 - Paroxysmal atrial fibrillation Status: Acute (3) Ischemic cardiomyopathy ICD Codes: I25.5 - Ischemic cardiomyopathy Status: Chronic (4) Hypertension ICD Codes: I10 - Hypertension Status: Chronic (5) Hyperlipidemia ICD Codes: E78.5 - Hyperlipidemia, unspecified Status: Chronic (6) Multi-vessel coronary artery stenosis ICD Codes: I25.10 - Atherosclerotic heart disease of [place] coronary artery without angina pectoris (7) Chest pain ICD Codes: R07.9 - Chest pain Status: Acute (8) Systolic CHF, acute ICD Codes: I50.21 - Systolic CHF, acute Status: Acute Assessment and Plan 1) NSTEMI with MVCAD Turned down for CABG due to no targets 2) Discussed with the patient his options a) Attempt to be listed for cardiac transplant, although not sure if he's a candidate b) High risk stenting of LM/LAD/LCx with Impella placement c) Medical management 3) Patient discussed with his family, will plan on high risk stenting tomorrow Risk, benefits and alternatives discussed with the patient and his sister the night before 4) Will wait to restart Coumadin until stable after stenting 5) NPO after midnight Problem Qualifiers (1) Hypertension: Qualified Codes: I10 - Essential (primary) hypertension (2) Hyperlipidemia: Qualified Codes: E78.2 - Mixed hyperlipidemia José Antonio May DO Apr 19, 2017 19:22
--- NOTE | 2017-04-19 19:39 | HHI.NPPN ---
Subjective History of Present Illness 56-year-old male known to me from before with past medical history of hypertension, chronic anemia, diabetes mellitus, end-stage renal disease on hemodialysis three times per week came to the hospital with complaint of recurrent retrosternal chest pain. I was called to see the patient for management of hemodialysis. He has been on hemodialysis Tuesday, and Tuesday. Additional Remarks Patient is alert, feeling better no chest pain, no SOB, sitting on chair, clinically same, not in distress. Objective Data Data 04/19/17 04/20/17 19:00 07:00 Intake Total 360 ml Output Total 2700 ml Balance -2340 ml Intake Oral 360 ml Hemodialysis 2700 ml # Voids 1 # Bowel Movements 0 Vital Signs Date Time Temp Pulse Resp B/P (MAP) Pulse Ox O2 Delivery O2 Flow Rate FiO2 04/19/17 16:03 98.2 69 19 105/58 (74) 97 04/19/17 13:45 97.6 72 18 139/65 (89) 04/19/17 13:08 97 04/19/17 08:03 97.7 64 18 115/58 (77) 97 04/19/17 08:00 Room Air 04/19/17 08:00 63 04/19/17 04:00 97.7 64 18 116/61 (79) 97 04/19/17 00:00 97.3 62 18 103/56 (72) 97 04/19/17 00:00 Room Air 04/18/17 20:00 98.0 68 18 111/73 (86) 96 04/18/17 20:00 Room Air 04/18/17 20:00 68 -: 04/18/17 0550 04/17/17 1831 Physical Exam General Appearance: No Acute Distress, Comfortable Eyes Eye Exam: Pupils Equal Throat Throat Exam: Oral Mucosa [place] & Moist Neck Neck Exam: Neck Supple Pulmonary Resp Exam: Breath Sounds Equal, No Distress, Rhonchi, Decreased Bases Cardiology CV Exam: Regular, Normal Sinus Rhythm Gastrointestinal/Abdomen GI Exam: Soft, Non-Tender, Bowel Sounds Present Extremeties Extremities Exam: Trace Edema Neurologic Neuro Exam: Alert, Awake, Oriented Psychiatric Psych Exam: Appropriate Responses Assessment/Plan Assessment Summary: CHF, Hypertension, End Stage Renal Disease Electrolyte Assessment: Hyperkalemia Problem List: (1) Anemia ICD Codes: D64.9 - Anemia, unspecified Status: Chronic (2) Diabetes mellitus ICD Codes: E11.9 - Diabetes mellitus Status: Chronic (3) HTN (hypertension) ICD Codes: I10 - Essential (primary) hypertension Status: Chronic (4) Non-STEMI (non-ST elevated myocardial infarction) ICD Codes: I21.4 - Non-ST elevation (NSTEMI) myocardial infarction Status: Acute (5) Hyperlipidemia ICD Codes: E78.5 - Hyperlipidemia, unspecified Status: Chronic (6) Systolic CHF, acute ICD Codes: I50.21 - Systolic CHF, acute Status: Acute (7) ESRD (end stage renal disease) ICD Codes: N18.6 - End stage renal disease Status: Acute Plan Patient has NSTEMI, now has no chest pain. BP is stable. Seen by cardiac surgery. Medical Management. HD to continue TTS,K is better after HD. HD done in AM, tolerated well. Cardiology follow up noted. Patient will have high risk Cardiac cath. and stenting tomorrow. Problem Qualifiers (1) Hyperlipidemia: Qualified Codes: E78.2 - Mixed hyperlipidemia Jeana Corona MD Apr 19, 2017 19:39
[2017-04-19] MEDS: INSULIN DETEMIR 100 UNITS/ML VIAL SQ SCH (21:00)
[2017-04-19 22:21] LABS: BICARBONATE 29.7 MEQ/L (21.0-32.0); POTASSIUM 4.8 MEQ/L (3.5-5.1)
[2017-04-20] VITALS (14 sets, daily range): BP systolic 96–131; BP diastolic 50–67; PULSE 64–100; RESP 17–18; TEMP 97.2–98.4; O2SAT 96–99
[2017-04-20] MEDS: CHLORHEXIDINE GLUCONATE 2 % 1 PACK (2 CLOTHS) TOP SCH ×2 (03:10→20:36)
[2017-04-20] MEDS: ISOSORBIDE MONONITRATE 60 MG TAB PO SCH (06:35)
[2017-04-20] MEDS: INSULIN ASPART SUPPLEMENTAL SCALE SQ SCH ×4 (07:43→20:37)
[2017-04-20 08:24] LABS: AUTOMATED NEUTROPHIL # 4.6 TH/MM3 (1.8-7.7); BASOPHIL # 0.1 TH/MM3 (0-0.2); EOSINOPHIL # 0.2 TH/MM3 (0-0.4); EOSINOPHIL % 2.6 % (0.0-4.0); HEMATOCRIT 30.3 % (39.0-51.0); HEMO FLAGS DIFF FINAL; INTERNATIONAL NORMALIZED RATIO 1.2 RATIO; LYMPH % 17.2 % (9.0-44.0); LYMPHOCYTE # 1.2 TH/MM3 (1.0-4.8); MEAN CELL VOLUME 93.9 FL (80.0-100.0); MEAN CORPUSCULAR HEMOGLOBIN 32.4 PG (27.0-34.0); MEAN CORPUSCULAR HGB CONC 34.5 % (32.0-36.0); MONO % 10.7 % (0.0-8.0); NEUT % 68.5 % (16.0-70.0); PLATELET COUNT 211 TH/MM3 (150-450); PROTHROMBIN TIME - PATIENT 13.6 SEC (9.8-11.6); RED BLOOD COUNT 3.22 MIL/MM3 (4.50-5.90); WHITE BLOOD COUNT 6.7 TH/MM3 (4.0-11.0)
[2017-04-20] MEDS: GABAPENTIN 100 MG CAP PO SCH ×3 (08:38→18:52)
[2017-04-20] MEDS: SODIUM CHLORIDE 0.9% FLUSH 10 ML FLUSH IV FLUSH SCH ×2 (08:38→20:36)
[2017-04-20] MEDS: LOSARTAN 50 MG TAB PO SCH (08:38)
[2017-04-20] MEDS: CARVEDILOL 12.5 MG TAB PO SCH ×2 (08:38→20:36)
[2017-04-20] MEDS: NITROGLYCERIN 2% OINT 1 GM PACKET TOP SCH (08:38)
[2017-04-20] MEDS: PRAVASTATIN SOD 80 MG TAB PO SCH (08:38)
[2017-04-20] MEDS: AMIODARONE 200 MG TAB PO SCH ×2 (08:38→20:36)
[2017-04-20] MEDS: hydrALAZINE HCL 50 MG TAB PO SCH ×4 (08:38→18:00)
[2017-04-20] MEDS: ASPIRIN 81 MG CHEW TAB CHEW SCH ×2 (08:38→08:48)
[2017-04-20] MEDS: CALCIUM ACETATE 667 MG CAP PO SCH ×3 (08:38→18:46)
[2017-04-20] MEDS: cloNIDine HCL 0.1 MG TAB PO SCH ×3 (08:39→20:36)
[2017-04-20 08:48] LABS: BICARBONATE 26.4 MEQ/L (21.0-32.0); POTASSIUM 4.9 MEQ/L (3.5-5.1)
--- NOTE | 2017-04-20 10:48 | HHI.PR ---
Subjective Remarks Delayed note from 04/19 Patient seen and examined, no chest pain short of breath no fever or chills Objective Vitals Vital Signs Date Time Temp Pulse Resp B/P (MAP) Pulse Ox O2 Delivery O2 Flow Rate FiO2 04/20/17 10:33 97 21 04/20/17 09:47 68 04/20/17 08:35 Room Air 04/20/17 08:00 98.0 69 17 131/65 (87) 96 04/20/17 04:00 Room Air 04/20/17 04:00 98.4 67 18 119/67 (84) 96 04/20/17 00:00 97.6 64 18 110/57 (74) 99 04/20/17 00:00 Room Air 04/19/17 20:00 98.3 68 18 95/54 (68) 98 04/19/17 20:00 Room Air 04/19/17 20:00 68 04/19/17 16:03 98.2 69 19 105/58 (74) 97 04/19/17 13:45 97.6 72 18 139/65 (89) 04/19/17 13:08 97 I/O 04/19/17 04/19/17 04/19/17 04/20/17 04/20/17 04/20/17 07:00 15:00 23:00 07:00 15:00 23:00 Intake Total 360 ml 360 ml Output Total 2700 ml 400 ml Balance 360 ml -2340 ml -400 ml Intake Oral 360 ml 360 ml Output Urine Total 400 ml Hemodialysis 2700 ml # Voids 1 1 # Bowel Movements 0 0 Result Diagram: 04/20/1715 04/20/17514 Objective Remarks GENERAL: This is a well-nourished, well-developed patient, in no apparent distress. SKIN: No rashes, warm and dry HEAD: Atraumatic. Normocephalic. EYES: Pupils equal round and reactive. Extraocular motions intact. No scleral icterus. ENT: Nose without bleeding, or drainage, Airway patent. NECK: Trachea midline. Supple CARDIOVASCULAR: Regular rate and rhythm without murmurs, gallops, or rubs. RESPIRATORY: Fair air entry bilaterally. No wheezes, rales, or rhonchi. GASTROINTESTINAL: Abdomen soft, non-tender, nondistended. Positive bowel sounds MUSCULOSKELETAL: Extremities without clubbing, cyanosis, or edema. Pedal pulses appreciated NEUROLOGICAL: Awake and alert. Moves all extremity. Normal speech.no focal neurological deficit Procedures 04/13-left heart catheterization A/P Problem List: (1) ESRD on hemodialysis ICD Code: N18.6 - End stage renal disease; Z99.2 - Dependence on renal dialysis (2) Non-STEMI (non-ST elevated myocardial infarction) ICD Code: I21.4 - Non-ST elevation (NSTEMI) myocardial infarction Status: Acute (3) Paroxysmal atrial fibrillation ICD Code: I48.0 - Paroxysmal atrial fibrillation Status: Acute (4) Ischemic cardiomyopathy ICD Code: I25.5 - Ischemic cardiomyopathy Status: Chronic (5) Hypertension ICD Code: I10 - Hypertension Status: Chronic (6) Diabetes mellitus ICD Code: E11.9 - Diabetes mellitus Status: Chronic Assessment and Plan 04/19: Continue close monitoring, follow with cardiology, appreciated their input, they discussed with the patient and plan for high risk stenting tomorrow 56-year-old man with Non-ST elevation ND Status post left heart catheterization 04/13/17 He is not a candidate for surgical revascularization per cardiothoracic surgery 2-D echo with EF 25% Continue medical management with beta darwin, aspirin, Lipitor Cardiology following, possible high risk stenting Paroxysmal A. fib with RVR Appreciate input from cardiology Currently on amiodarone 200 mg twice a day Warfarin on hold per cardiology in anticipation of catheterization. We will resume per cardiology and follow INR. INR 1.3 today. Ischemic cardiomyopathy EF~25% Continue with Coreg 25 mg twice a day, Cozaar 50 mg daily Hypertension Hypotensive this morning Currently on Coreg 25 mg twice a day, Clonidine 0.1 mg twice a day, hydralazine 50 mg TID, Cozaar 50 mg daily currently on hold due to hypotension. Patient given dose of Imdur 60 mg this am. Discussed with Sharlene LANDERS, will have BP measurement rechecked around 11 this morning Continue to monitor BP History of chronic systolic CHF Continue with beta darwin, Imdur 60 mg daily. Beta darwin currently on hold due to hypotension. HR 70. Monitor for signs of fluid overload Hyperlipidemia LDL 46 Continue Pravachol 80 mg at bedtime End-stage renal disease on hemodialysis Appreciate input from nephrology On HD Tuesday and Tuesday Anemia - Epogen injections per nephrology - Monitor as indicated Diabetes type 2 Currently on high insulin sliding scale with fingerstick blood glucose monitoring Continue Levemir 30 units at bedtime DVT prophylaxis: Coumadin on hold Problem Qualifiers (1) Hypertension: Qualified Codes: I10 - Essential (primary) hypertension Lencho No MD Apr 20, 2017 10:48
[2017-04-20] MEDS ORDERED: MIDAZOLAM HCL 2 MG/2 ML VIAL ONE (13:51)
[2017-04-20] MEDS ORDERED: HEPARIN SODIUM - IV 10,000 UNITS/10 ML VIAL ONE ×2 (13:51→15:04)
[2017-04-20] MEDS ORDERED: HEPARIN-NS/PF INJ 1,500 ML ONE (13:51)
[2017-04-20] MEDS ORDERED: ceFAZolin INJ 1,000 MG VIAL ONE (14:52)
--- NOTE | 2017-04-20 17:13 | HHI.NPPN ---
Subjective History of Present Illness 56-year-old male known to me from before with past medical history of hypertension, chronic anemia, diabetes mellitus, end-stage renal disease on hemodialysis three times per week came to the hospital with complaint of recurrent retrosternal chest pain. I was called to see the patient for management of hemodialysis. He has been on hemodialysis Tuesday, and Tuesday. Additional Remarks Patient is alert, seen in AM, sitting on chair, not in distress, no chest pain or SOB. Objective Data Data Vital Signs Date Time Temp Pulse Resp B/P (MAP) Pulse Ox O2 Delivery O2 Flow Rate FiO2 04/20/17 12:00 97.5 68 17 96/52 (67) 98 04/20/17 10:33 97 21 04/20/17 09:47 68 04/20/17 08:35 Room Air 04/20/17 08:00 98.0 69 17 131/65 (87) 96 04/20/17 04:00 Room Air 04/20/17 04:00 98.4 67 18 119/67 (84) 96 04/20/17 00:00 97.6 64 18 110/57 (74) 99 04/20/17 00:00 Room Air 04/19/17 20:00 98.3 68 18 95/54 (68) 98 04/19/17 20:00 Room Air 04/19/17 20:00 68 -: 04/20/17 0515 04/20/17 0515 Physical Exam General Appearance: No Acute Distress, Comfortable Eyes Eye Exam: Pupils Equal Throat Throat Exam: Oral Mucosa Nason & Moist Neck Neck Exam: Neck Supple Pulmonary Resp Exam: Breath Sounds Equal, No Distress, Rhonchi, Decreased Bases Cardiology CV Exam: Regular, Normal Sinus Rhythm Gastrointestinal/Abdomen GI Exam: Soft, Non-Tender, Bowel Sounds Present Extremeties Extremities Exam: Trace Edema Neurologic Neuro Exam: Alert, Awake, Oriented Psychiatric Psych Exam: Appropriate Responses Assessment/Plan Assessment Summary: CHF, Hypertension, End Stage Renal Disease Electrolyte Assessment: Hyperkalemia Problem List: (1) Anemia ICD Codes: D64.9 - Anemia, unspecified Status: Chronic (2) Diabetes mellitus ICD Codes: E11.9 - Diabetes mellitus Status: Chronic (3) HTN (hypertension) ICD Codes: I10 - Essential (primary) hypertension Status: Chronic (4) Non-STEMI (non-ST elevated myocardial infarction) ICD Codes: I21.4 - Non-ST elevation (NSTEMI) myocardial infarction Status: Acute (5) Hyperlipidemia ICD Codes: E78.5 - Hyperlipidemia, unspecified Status: Chronic (6) Systolic CHF, acute ICD Codes: I50.21 - Systolic CHF, acute Status: Acute (7) ESRD (end stage renal disease) ICD Codes: N18.6 - End stage renal disease Status: Acute Plan Patient has NSTEMI, now has no chest pain. BP is stable. Seen by cardiac surgery. Medical Management. HD to continue TTS,K is better after HD. Cardiology follow up noted. Going today for high risk Cardiac cath. and stenting tomorrow. HD will be in AM. Problem Qualifiers (1) Hyperlipidemia: Qualified Codes: E78.2 - Mixed hyperlipidemia Jeana Corona MD Apr 20, 2017 17:13
[2017-04-20] MEDS ORDERED: CLOPIDOGREL 300 MG TAB ONE (17:21)
[2017-04-20] MEDS ORDERED: ATROPINE SULFATE 1 MG/ML VIAL IV PUSH PRN (18:15)
[2017-04-20] MEDS ORDERED: SODIUM CHLOR 0.9% 250 ML INJ 250 ML IV PRN (18:15)
--- NOTE | 2017-04-20 18:38 | HHI.PR ---
Subjective Remarks Patient just came out of the heart catheter Stable denied any pain or short of breath Nurses working on removing the sheath Objective Vitals Vital Signs Date Time Temp Pulse Resp B/P (MAP) Pulse Ox O2 Delivery O2 Flow Rate FiO2 04/20/17 18:00 97.7 64 18 128/64 (85) 96 04/20/17 12:00 97.5 68 17 96/52 (67) 98 04/20/17 10:33 97 21 04/20/17 09:47 68 04/20/17 08:35 Room Air 04/20/17 08:00 98.0 69 17 131/65 (87) 96 04/20/17 04:00 Room Air 04/20/17 04:00 98.4 67 18 119/67 (84) 96 04/20/17 00:00 97.6 64 18 110/57 (74) 99 04/20/17 00:00 Room Air 04/19/17 20:00 98.3 68 18 95/54 (68) 98 04/19/17 20:00 Room Air 04/19/17 20:00 68 I/O 04/19/17 04/19/17 04/19/17 04/20/17 04/20/17 04/20/17 07:00 15:00 23:00 07:00 15:00 23:00 Intake Total 360 ml 360 ml Output Total 2700 ml 400 ml Balance 360 ml -2340 ml -400 ml Intake Oral 360 ml 360 ml Output Urine Total 400 ml Hemodialysis 2700 ml # Voids 1 1 # Bowel Movements 0 0 Result Diagram: 04/20/1715 04/20/1715 Objective Remarks GENERAL: This is a well-nourished, well-developed patient, in no apparent distress. SKIN: No rashes, warm and dry HEAD: Atraumatic. Normocephalic. EYES: Pupils equal round and reactive. Extraocular motions intact. No scleral icterus. ENT: Nose without bleeding, or drainage, Airway patent. NECK: Trachea midline. Supple CARDIOVASCULAR: Regular rate and rhythm without murmurs, gallops, or rubs. RESPIRATORY: Fair air entry bilaterally. No wheezes, rales, or rhonchi. GASTROINTESTINAL: Abdomen soft, non-tender, nondistended. Positive bowel sounds MUSCULOSKELETAL: Extremities without clubbing, cyanosis, or edema. Pedal pulses appreciated NEUROLOGICAL: Awake and alert. Moves all extremity. Normal speech.no focal neurological deficit Procedures 04/13-left heart catheterization A/P Problem List: (1) ESRD on hemodialysis ICD Code: N18.6 - End stage renal disease; Z99.2 - Dependence on renal dialysis (2) Non-STEMI (non-ST elevated myocardial infarction) ICD Code: I21.4 - Non-ST elevation (NSTEMI) myocardial infarction Status: Acute (3) Paroxysmal atrial fibrillation ICD Code: I48.0 - Paroxysmal atrial fibrillation Status: Acute (4) Ischemic cardiomyopathy ICD Code: I25.5 - Ischemic cardiomyopathy Status: Chronic (5) Hypertension ICD Code: I10 - Hypertension Status: Chronic (6) Diabetes mellitus ICD Code: E11.9 - Diabetes mellitus Status: Chronic Assessment and Plan 04/19: Continue close monitoring, follow with cardiology, appreciated their input, they discussed with the patient and plan for high risk stenting tomorrow 04/20: Status post heart catheter, discussed with Dr. May he notified me that he got a good result on stenting LAD, continue monitoring, expected stay 2- 3 more days per cardiology 56-year-old man with Non-ST elevation PA Status post left heart catheterization 04/13/17 He is not a candidate for surgical revascularization per cardiothoracic surgery 2-D echo with EF 25% Continue medical management with beta darwin, aspirin, Lipitor Cardiology following,s/p cath Paroxysmal A. fib with RVR Appreciate input from cardiology Currently on amiodarone 200 mg twice a day Warfarin on hold per cardiology in anticipation of catheterization. We will resume per cardiology and follow INR. INR 1.3 today. Ischemic cardiomyopathy EF~25% Continue with Coreg 25 mg twice a day, Cozaar 50 mg daily Hypertension Hypotensive this morning Currently on Coreg 25 mg twice a day, Clonidine 0.1 mg twice a day, hydralazine 50 mg TID, Cozaar 50 mg daily currently on hold due to hypotension. Patient given dose of Imdur 60 mg this am. Discussed with Sharlene LANDERS, will have BP measurement rechecked around 11 this morning Continue to monitor BP History of chronic systolic CHF Continue with beta darwin, Imdur 60 mg daily. Beta darwin currently on hold due to hypotension. HR 70. Monitor for signs of fluid overload Hyperlipidemia LDL 46 Continue Pravachol 80 mg at bedtime End-stage renal disease on hemodialysis Appreciate input from nephrology On HD Tuesday and Tuesday Anemia - Epogen injections per nephrology - Monitor as indicated Diabetes type 2 Currently on high insulin sliding scale with fingerstick blood glucose monitoring Continue Levemir 30 units at bedtime DVT prophylaxis: Coumadin on hold Problem Qualifiers (1) Hypertension: Qualified Codes: I10 - Essential (primary) hypertension Lencho No MD Apr 20, 2017 18:38
[2017-04-20] MEDS: INSULIN DETEMIR 100 UNITS/ML VIAL SQ SCH (20:36)
--- NOTE | 2017-04-20 23:19 | PD.CARD.PN ---
Subjective Subjective Remarks Patient was seen around 8pm Post-catheterization Doing well, no complaints Objective Medications Current Medications Medications (Trade) Dose Ordered Sig/Taj Route Start Time Stop Time Status Last Admin (NS Flush) 2 ml UNSCH PRN IVF 04/12/17 18:00 (Phoslo) 1,334 mg TID PO 04/13/17 09:00 04/20/17 18:46 (Coreg) 25 mg BID PO 04/12/17 21:00 04/20/17 20:36 (Catapres) 0.1 mg BID PO 04/12/17 21:00 04/20/17 20:36 (Neurontin) 100 mg TID PO 04/13/17 09:00 04/20/17 18:52 (Apresoline) 50 mg TID PO 04/13/17 09:00 04/20/17 08:49 (Cozaar) 50 mg DAILY PO 04/13/17 09:00 04/20/17 08:38 (Pravachol) 80 mg DAILY PO 04/13/17 09:00 04/20/17 08:38 (NS Flush) 2 ml BID IV FLUSH 04/12/17 21:00 04/20/17 20:36 (NS Flush) 2 ml UNSCH PRN IV FLUSH 04/12/17 20:15 (Nitroglycerin 2% Oint) 1 inch DAILY TOP 04/13/17 09:00 04/20/17 08:38 (Morphine Inj) 2 mg Q3H PRN IV PUSH 04/12/17 20:15 04/14/17 19:43 (Tylenol) 650 mg Q6H PRN PO 04/12/17 20:15 (Colace) 100 mg BID PRN PO 04/12/17 20:15 (Xanax) 0.25 mg Q8H PRN PO 04/12/17 20:15 04/12/17 22:35 (Zofran Inj) 4 mg Q6H PRN IV PUSH 04/12/17 20:15 Miscellaneous Information 1 Q361D XX 04/12/17 20:15 04/12/17 22:00 (Chlorhexidine 2% Cloth) Taper DAILY@04 TOP 04/13/17 04:00 04/09/18 03:59 04/16/17 04:00 (Chlorhexidine 2% Cloth) 3 pack UNSCH PRN TOP 04/12/17 20:15 (D50w (Vial) Inj) 50 ml UNSCH PRN IV PUSH 04/12/17 21:15 (Glucagon Inj) 1 mg UNSCH PRN OTHER 04/12/17 21:15 (NovoLOG SUPPLEMENTAL SCALE) 1 ACHS SLIDING SCALE SQ 04/13/17 08:00 04/20/17 18:30 (Atropine Inj) 0.5 mg UNSCH PRN IV 04/13/17 10:45 Sodium Chloride 1,000 ml @ 0 mls/hr Q0M PRN OTHER 04/13/17 17:19 (Heparin Inj) 8,000 units UNSCH PRN IV FLUSH 04/13/17 17:30 Sodium Chloride 1,000 ml @ 200 mls/hr Q5H PRN IV 04/13/17 17:19 Sodium Chloride 1,000 ml @ 0 mls/hr Q0M PRN OTHER 04/13/17 17:19 (Mannitol Inj) 12.5 gm UNSCH PRN IV 04/13/17 17:30 Albumin Human 100 ml @ 60 mls/hr UNSCH PRN IV 04/13/17 17:30 (NS Flush) 5 ml UNSCH PRN IV FLUSH 04/13/17 17:30 (Heparin Inj) UNSCH PRN .XX 04/13/17 17:30 (Gentamicin (Dialysis) Inj) 20 mg UNSCH PRN OTHER 04/13/17 17:30 (Zofran Inj) 4 mg UNSCH PRN IV PUSH 04/13/17 17:30 (Tylenol) 650 mg UNSCH PRN PO 04/13/17 17:30 (Benadryl) 25 mg UNSCH PRN PO 04/13/17 17:30 (Nitrostat Sl) 0.4 mg UNSCH PRN SL 04/13/17 17:30 (Catapres) 0.1 mg UNSCH PRN PO 04/13/17 17:30 (Epogen Inj) 6,000 units UNSCH PRN IV PUSH 04/13/17 17:30 04/19/17 10:47 (Gelfoam 12 Mm/7 Mm Top) 1 foam UNSCH PRN TOP 04/13/17 17:30 04/14/17 09:05 (Imdur) 60 mg DAILY@07 PO 04/15/17 07:00 04/20/17 06:35 (Cordarone) 200 mg BID PO 04/15/17 21:00 04/20/17 20:36 (Levemir Inj) 30 units HS SQ 04/16/17 21:00 04/20/17 20:36 (Aspirin Chew) 81 mg DAILY CHEW 04/20/17 09:00 04/20/17 08:48 (Plavix) 75 mg DAILY PO 04/21/17 09:00 (Atropine Inj) 0.5 mg UNSCH PRN IV PUSH 04/20/17 18:15 Sodium Chloride 250 ml @ 500 mls/hr ONCE PRN IV 04/20/17 18:15 04/21/17 18:14 Vital Signs / I&O Vital Signs Date Time Temp Pulse Resp B/P (MAP) Pulse Ox O2 Delivery O2 Flow Rate FiO2 04/20/17 20:00 97.2 67 123/63 (83) 96 04/20/17 20:00 Nasal Cannula 2.00 04/20/17 19:00 68 04/20/17 18:30 64 04/20/17 18:00 97.7 64 18 128/64 (85) 96 04/20/17 12:00 97.5 68 17 96/52 (67) 98 04/20/17 10:33 97 21 04/20/17 09:47 68 04/20/17 08:35 Room Air 04/20/17 08:00 98.0 69 17 131/65 (87) 96 04/20/17 04:00 Room Air 04/20/17 04:00 98.4 67 18 119/67 (84) 96 04/20/17 00:00 97.6 64 18 110/57 (74) 99 04/20/17 00:00 Room Air I/O 04/20/17 04/20/17 04/20/17 04/21/17 04/21/17 04/21/17 07:00 15:00 23:00 07:00 15:00 23:00 Output Total 400 ml Balance -400 ml Output Urine Total 400 ml Physical Exam GENERAL: NAD, AAOx3 SKIN: Warm and dry. HEAD: Atraumatic. Normocephalic. EYES: Pupils equal and round. No scleral icterus. No injection or drainage. ENT: No nasal bleeding or discharge. Mucous membranes pink and moist. NECK: Trachea midline. No JVD. CARDIOVASCULAR: Regular rate and rhythm. RESPIRATORY: No accessory muscle use. Clear to auscultation. Breath sounds equal bilaterally. GASTROINTESTINAL: Abdomen soft, non-tender, nondistended. Hepatic and splenic margins not palpable. MUSCULOSKELETAL: Extremities without clubbing, cyanosis, or edema. No obvious deformities. Right femoral sheath being removed. Left femoral no hematoma noted NEUROLOGICAL: Awake and alert. No obvious cranial nerve deficits. Motor grossly within normal limits. Five out of 5 muscle strength in the arms and legs. Normal speech. PSYCHIATRIC: Appropriate mood and affect; insight and judgment normal. Laboratory Laboratory Tests Test 04/20/17 05:15 White Blood Count 6.7 TH/MM3 Red Blood Count 3.22 MIL/MM3 Hemoglobin 10.5 GM/DL Hematocrit 30.3 % Mean Corpuscular Volume 93.9 FL Mean Corpuscular Hemoglobin 32.4 PG Mean Corpuscular Hemoglobin Concent 34.5 % Red Cell Distribution Width 14.0 % Platelet Count 211 TH/MM3 Mean Platelet Volume 8.8 FL Neutrophils (%) (Auto) 68.5 % Lymphocytes (%) (Auto) 17.2 % Monocytes (%) (Auto) 10.7 % Eosinophils (%) (Auto) 2.6 % Basophils (%) (Auto) 1.0 % Neutrophils # (Auto) 4.6 TH/MM3 Lymphocytes # (Auto) 1.2 TH/MM3 Monocytes # (Auto) 0.7 TH/MM3 Eosinophils # (Auto) 0.2 TH/MM3 Basophils # (Auto) 0.1 TH/MM3 CBC Comment DIFF FINAL Differential Comment Prothrombin Time 13.6 SEC Prothromb Time International Ratio 1.2 RATIO Blood Urea Nitrogen 78 MG/DL Creatinine 10.62 MG/DL Random Glucose 212 MG/DL Calcium Level 8.9 MG/DL Sodium Level 134 MEQ/L Potassium Level 4.9 MEQ/L Chloride Level 95 MEQ/L Carbon Dioxide Level 26.4 MEQ/L Anion Gap 13 MEQ/L Estimat Glomerular Filtration Rate 5 ML/MIN Assessment and Plan Problem List: (1) Non-STEMI (non-ST elevated myocardial infarction) ICD Codes: I21.4 - Non-ST elevation (NSTEMI) myocardial infarction Status: Acute (2) Paroxysmal atrial fibrillation ICD Codes: I48.0 - Paroxysmal atrial fibrillation Status: Acute (3) Ischemic cardiomyopathy ICD Codes: I25.5 - Ischemic cardiomyopathy Status: Chronic (4) Hypertension ICD Codes: I10 - Hypertension Status: Chronic (5) Hyperlipidemia ICD Codes: E78.5 - Hyperlipidemia, unspecified Status: Chronic (6) Multi-vessel coronary artery stenosis ICD Codes: I25.10 - Atherosclerotic heart disease of [place] coronary artery without angina pectoris (7) Chest pain ICD Codes: R07.9 - Chest pain Status: Acute (8) Systolic CHF, acute ICD Codes: I50.21 - Systolic CHF, acute Status: Acute Assessment and Plan 1) NSTEMI with MVCAD Turned down for CABG due to no targets 2) High risk PCI with Impella placement JUAN to mid LAD JUAN to mid LCx Bifurcation stenting of LM with JUAN to LM/LAD and LM/LCx ASA/Plavix 3) Will plan to restart Coumadin when stable Most likely home on ASA/Plavix/Coumadin, with a plan to stop ASA when at INR goal Problem Qualifiers (1) Hypertension: Qualified Codes: I10 - Essential (primary) hypertension (2) Hyperlipidemia: Qualified Codes: E78.2 - Mixed hyperlipidemia José Antonio May DO Apr 20, 2017 23:19
[2017-04-21] VITALS (24 sets, daily range): BP systolic 106–145; BP diastolic 56–71; PULSE 64–88; RESP 16–19; TEMP 97.7–98.3; O2SAT 95–99
[2017-04-21 05:47] LABS: AUTOMATED NEUTROPHIL # 5.5 TH/MM3 (1.8-7.7); BASOPHIL # 0.1 TH/MM3 (0-0.2); BASOPHIL % 0.8 % (0.0-2.0); EOSINOPHIL # 0.2 TH/MM3 (0-0.4); EOSINOPHIL % 2.1 % (0.0-4.0); HEMATOCRIT 29.3 % (39.0-51.0); HEMO FLAGS DIFF FINAL; LYMPH % 12.4 % (9.0-44.0); LYMPHOCYTE # 0.9 TH/MM3 (1.0-4.8); MEAN CELL VOLUME 94.1 FL (80.0-100.0); MEAN CORPUSCULAR HEMOGLOBIN 31.7 PG (27.0-34.0); MEAN CORPUSCULAR HGB CONC 33.7 % (32.0-36.0); NEUT % 75.7 % (16.0-70.0); PLATELET COUNT 222 TH/MM3 (150-450); RED BLOOD COUNT 3.12 MIL/MM3 (4.50-5.90); RED CELL DISTRIBUTION WIDTH 13.9 % (11.6-17.2); WHITE BLOOD COUNT 7.3 TH/MM3 (4.0-11.0)
[2017-04-21] MEDS: ISOSORBIDE MONONITRATE 60 MG TAB PO SCH (05:59)
[2017-04-21 06:28] LABS: BICARBONATE 26.1 MEQ/L (21.0-32.0); POTASSIUM 5.3 MEQ/L (3.5-5.1)
[2017-04-21] MEDS: INSULIN ASPART SUPPLEMENTAL SCALE SQ SCH ×4 (08:00→20:08)
[2017-04-21] MEDS ORDERED: IOHEXOL 350 MG/ML 100 ML BTL (for Cath Lab) OTHER ONE (08:21)
[2017-04-21] MEDS ORDERED: IOHEXOL 350 MG/ML 50 ML BTL (for Cath Lab) OTHER ONE (08:21)
[2017-04-21] MEDS: SODIUM CHLORIDE 0.9% FLUSH 10 ML FLUSH IV FLUSH SCH ×2 (09:00→20:07)
[2017-04-21] MEDS: LOSARTAN 50 MG TAB PO SCH (09:00)
[2017-04-21] MEDS: cloNIDine HCL 0.1 MG TAB PO SCH ×3 (09:00→20:10)
[2017-04-21] MEDS: CARVEDILOL 12.5 MG TAB PO SCH ×2 (09:00→20:08)
[2017-04-21] MEDS: hydrALAZINE HCL 50 MG TAB PO SCH ×3 (09:00→18:00)
[2017-04-21] MEDS: NITROGLYCERIN 2% OINT 1 GM PACKET TOP SCH (09:00)
[2017-04-21] MEDS: PRAVASTATIN SOD 80 MG TAB PO SCH (09:08)
[2017-04-21] MEDS: ASPIRIN 81 MG CHEW TAB CHEW SCH (09:08)
[2017-04-21] MEDS: CALCIUM ACETATE 667 MG CAP PO SCH ×3 (09:08→18:19)
[2017-04-21] MEDS: AMIODARONE 200 MG TAB PO SCH ×2 (09:08→20:07)
[2017-04-21] MEDS: CLOPIDOGREL 75 MG TAB PO SCH (09:08)
[2017-04-21] MEDS: GABAPENTIN 100 MG CAP PO SCH ×3 (09:23→18:19)
--- NOTE | 2017-04-21 10:59 | HHI.NPPN ---
Subjective History of Present Illness 56-year-old male known to me from before with past medical history of hypertension, chronic anemia, diabetes mellitus, end-stage renal disease on hemodialysis three times per week came to the hospital with complaint of recurrent retrosternal chest pain. I was called to see the patient for management of hemodialysis. He has been on hemodialysis Tuesday, and Tuesday. Additional Remarks Patient is alert, seen during HD, no chest pain, no SOB. Objective Data Data Vital Signs Date Time Temp Pulse Resp B/P (MAP) Pulse Ox O2 Delivery O2 Flow Rate FiO2 04/21/17 09:00 64 04/21/17 08:00 64 04/21/17 07:35 98 Room Air 04/21/17 07:35 98.2 65 19 106/59 (75) 98 04/21/17 07:00 65 04/21/17 06:06 66 04/21/17 05:37 66 04/21/17 04:12 66 04/21/17 03:24 71 04/21/17 03:23 97.9 72 106/56 (73) 95 04/21/17 02:23 71 04/21/17 01:16 70 04/21/17 00:00 88 04/20/17 23:39 69 04/20/17 23:38 98.2 66 96/50 (65) 04/20/17 22:00 86 04/20/17 21:00 100 04/20/17 20:00 94 04/20/17 20:00 97.2 67 123/63 (83) 96 04/20/17 20:00 Nasal Cannula 2.00 04/20/17 19:00 68 04/20/17 18:30 64 04/20/17 18:00 97.7 64 18 128/64 (85) 96 04/20/17 12:00 97.5 68 17 96/52 (67) 98 -: 04/21/17 0509 04/21/17 0509 Physical Exam General Appearance: No Acute Distress, Comfortable Eyes Eye Exam: Pupils Equal Throat Throat Exam: Oral Mucosa Malo & Moist Neck Neck Exam: Neck Supple Pulmonary Resp Exam: Breath Sounds Equal, No Distress, Rhonchi, Decreased Bases Cardiology CV Exam: Regular, Normal Sinus Rhythm Gastrointestinal/Abdomen GI Exam: Soft, Non-Tender, Bowel Sounds Present Extremeties Extremities Exam: Trace Edema Neurologic Neuro Exam: Alert, Awake, Oriented Psychiatric Psych Exam: Appropriate Responses Assessment/Plan Assessment Summary: CHF, Hypertension, End Stage Renal Disease Electrolyte Assessment: Hyperkalemia Problem List: (1) Anemia ICD Codes: D64.9 - Anemia, unspecified Status: Chronic (2) Diabetes mellitus ICD Codes: E11.9 - Diabetes mellitus Status: Chronic (3) HTN (hypertension) ICD Codes: I10 - Essential (primary) hypertension Status: Chronic (4) Non-STEMI (non-ST elevated myocardial infarction) ICD Codes: I21.4 - Non-ST elevation (NSTEMI) myocardial infarction Status: Acute (5) Hyperlipidemia ICD Codes: E78.5 - Hyperlipidemia, unspecified Status: Chronic (6) Systolic CHF, acute ICD Codes: I50.21 - Systolic CHF, acute Status: Acute (7) ESRD (end stage renal disease) ICD Codes: N18.6 - End stage renal disease Status: Acute Plan Patient has NSTEMI, now has no chest pain. BP is stable. Seen by cardiac surgery. Medical Management. HD to continue TTS,K is better after HD. Cardiology follow up noted. Had Cardiac cath. and stenting done, tolerated well. HD now, remove fluid as tolerated. Problem Qualifiers (1) Hyperlipidemia: Qualified Codes: E78.2 - Mixed hyperlipidemia Jeana Corona MD Apr 21, 2017 10:59
[2017-04-21] MEDS: EPOETIN ALFA 10,000 UNITS/ML VIAL IV PUSH PRN (12:00)
--- NOTE | 2017-04-21 13:30 | PD.CARD.PN ---
Subjective Subjective Remarks Seen on HD No complaints, feels well Objective Medications Current Medications Medications (Trade) Dose Ordered Sig/Taj Route Start Time Stop Time Status Last Admin (NS Flush) 2 ml UNSCH PRN IVF 04/12/17 18:00 (Phoslo) 1,334 mg TID PO 04/13/17 09:00 04/21/17 09:08 (Coreg) 25 mg BID PO 04/12/17 21:00 04/20/17 20:36 (Catapres) 0.1 mg BID PO 04/12/17 21:00 04/20/17 20:36 (Neurontin) 100 mg TID PO 04/13/17 09:00 04/21/17 09:23 (Apresoline) 50 mg TID PO 04/13/17 09:00 04/20/17 08:49 (Cozaar) 50 mg DAILY PO 04/13/17 09:00 04/20/17 08:38 (Pravachol) 80 mg DAILY PO 04/13/17 09:00 04/21/17 09:08 (NS Flush) 2 ml BID IV FLUSH 04/12/17 21:00 04/21/17 09:00 (NS Flush) 2 ml UNSCH PRN IV FLUSH 04/12/17 20:15 (Nitroglycerin 2% Oint) 1 inch DAILY TOP 04/13/17 09:00 04/20/17 08:38 (Morphine Inj) 2 mg Q3H PRN IV PUSH 04/12/17 20:15 04/14/17 19:43 (Tylenol) 650 mg Q6H PRN PO 04/12/17 20:15 (Colace) 100 mg BID PRN PO 04/12/17 20:15 (Xanax) 0.25 mg Q8H PRN PO 04/12/17 20:15 04/12/17 22:35 (Zofran Inj) 4 mg Q6H PRN IV PUSH 04/12/17 20:15 Miscellaneous Information 1 Q361D XX 04/12/17 20:15 04/12/17 22:00 (Chlorhexidine 2% Cloth) Taper DAILY@04 TOP 04/13/17 04:00 04/09/18 03:59 04/16/17 04:00 (Chlorhexidine 2% Cloth) 3 pack UNSCH PRN TOP 04/12/17 20:15 (D50w (Vial) Inj) 50 ml UNSCH PRN IV PUSH 04/12/17 21:15 (Glucagon Inj) 1 mg UNSCH PRN OTHER 04/12/17 21:15 (NovoLOG SUPPLEMENTAL SCALE) 1 ACHS SLIDING SCALE SQ 04/13/17 08:00 04/20/17 18:30 (Atropine Inj) 0.5 mg UNSCH PRN IV 04/13/17 10:45 Sodium Chloride 1,000 ml @ 0 mls/hr Q0M PRN OTHER 04/13/17 17:19 (Heparin Inj) 8,000 units UNSCH PRN IV FLUSH 04/13/17 17:30 Sodium Chloride 1,000 ml @ 200 mls/hr Q5H PRN IV 04/13/17 17:19 Sodium Chloride 1,000 ml @ 0 mls/hr Q0M PRN OTHER 04/13/17 17:19 (Mannitol Inj) 12.5 gm UNSCH PRN IV 04/13/17 17:30 Albumin Human 100 ml @ 60 mls/hr UNSCH PRN IV 04/13/17 17:30 (NS Flush) 5 ml UNSCH PRN IV FLUSH 04/13/17 17:30 (Heparin Inj) UNSCH PRN .XX 04/13/17 17:30 (Gentamicin (Dialysis) Inj) 20 mg UNSCH PRN OTHER 04/13/17 17:30 (Zofran Inj) 4 mg UNSCH PRN IV PUSH 04/13/17 17:30 (Tylenol) 650 mg UNSCH PRN PO 04/13/17 17:30 (Benadryl) 25 mg UNSCH PRN PO 04/13/17 17:30 (Nitrostat Sl) 0.4 mg UNSCH PRN SL 04/13/17 17:30 (Catapres) 0.1 mg UNSCH PRN PO 04/13/17 17:30 (Epogen Inj) 6,000 units UNSCH PRN IV PUSH 04/13/17 17:30 04/21/17 12:00 (Gelfoam 12 Mm/7 Mm Top) 1 foam UNSCH PRN TOP 04/13/17 17:30 04/14/17 09:05 (Imdur) 60 mg DAILY@07 PO 04/15/17 07:00 04/21/17 05:59 (Cordarone) 200 mg BID PO 04/15/17 21:00 04/21/17 09:08 (Levemir Inj) 30 units HS SQ 04/16/17 21:00 04/20/17 20:36 (Aspirin Chew) 81 mg DAILY CHEW 04/20/17 09:00 04/21/17 09:08 (Plavix) 75 mg DAILY PO 04/21/17 09:00 04/21/17 09:08 (Atropine Inj) 0.5 mg UNSCH PRN IV PUSH 04/20/17 18:15 Sodium Chloride 250 ml @ 500 mls/hr ONCE PRN IV 04/20/17 18:15 04/21/17 18:14 Vital Signs / I&O Vital Signs Date Time Temp Pulse Resp B/P (MAP) Pulse Ox O2 Delivery O2 Flow Rate FiO2 04/21/17 09:00 64 04/21/17 08:00 64 04/21/17 07:35 98 Room Air 04/21/17 07:35 98.2 65 19 106/59 (75) 98 04/21/17 07:00 65 04/21/17 06:06 66 04/21/17 05:37 66 04/21/17 04:12 66 04/21/17 03:24 71 04/21/17 03:23 97.9 72 106/56 (73) 95 04/21/17 02:23 71 04/21/17 01:16 70 04/21/17 00:00 88 04/20/17 23:39 69 04/20/17 23:38 98.2 66 96/50 (65) 04/20/17 22:00 86 04/20/17 21:00 100 04/20/17 20:00 94 04/20/17 20:00 97.2 67 123/63 (83) 96 04/20/17 20:00 Nasal Cannula 2.00 04/20/17 19:00 68 04/20/17 18:30 64 04/20/17 18:00 97.7 64 18 128/64 (85) 96 I/O 04/20/17 04/20/17 04/20/17 04/21/17 04/21/17 04/21/17 07:00 15:00 23:00 07:00 15:00 23:00 Intake Total 480 ml Output Total 400 ml 450 ml 2000 ml Balance -400 ml 30 ml -2000 ml Intake Oral 480 ml Output Urine Total 400 ml 450 ml Hemodialysis 2000 ml Physical Exam GENERAL: NAD, AAOx3 SKIN: Warm and dry. HEAD: Atraumatic. Normocephalic. EYES: Pupils equal and round. No scleral icterus. No injection or drainage. ENT: No nasal bleeding or discharge. Mucous membranes pink and moist. NECK: Trachea midline. No JVD. CARDIOVASCULAR: Regular rate and rhythm. RESPIRATORY: No accessory muscle use. Clear to auscultation. Breath sounds equal bilaterally. GASTROINTESTINAL: Abdomen soft, non-tender, nondistended. Hepatic and splenic margins not palpable. MUSCULOSKELETAL: Extremities without clubbing, cyanosis, or edema. No obvious deformities. Right and left groins no hematoma/bruit/ecchymosis, pulses intact NEUROLOGICAL: Awake and alert. No obvious cranial nerve deficits. Motor grossly within normal limits. Five out of 5 muscle strength in the arms and legs. Normal speech. PSYCHIATRIC: Appropriate mood and affect; insight and judgment normal. Laboratory Laboratory Tests Test 04/21/17 05:09 White Blood Count 7.3 TH/MM3 Red Blood Count 3.12 MIL/MM3 Hemoglobin 9.9 GM/DL Hematocrit 29.3 % Mean Corpuscular Volume 94.1 FL Mean Corpuscular Hemoglobin 31.7 PG Mean Corpuscular Hemoglobin Concent 33.7 % Red Cell Distribution Width 13.9 % Platelet Count 222 TH/MM3 Mean Platelet Volume 8.3 FL Neutrophils (%) (Auto) 75.7 % Lymphocytes (%) (Auto) 12.4 % Monocytes (%) (Auto) 9.0 % Eosinophils (%) (Auto) 2.1 % Basophils (%) (Auto) 0.8 % Neutrophils # (Auto) 5.5 TH/MM3 Lymphocytes # (Auto) 0.9 TH/MM3 Monocytes # (Auto) 0.7 TH/MM3 Eosinophils # (Auto) 0.2 TH/MM3 Basophils # (Auto) 0.1 TH/MM3 CBC Comment DIFF FINAL Differential Comment Blood Urea Nitrogen 94 MG/DL Creatinine 11.83 MG/DL Random Glucose 201 MG/DL Calcium Level 9.1 MG/DL Sodium Level 134 MEQ/L Potassium Level 5.3 MEQ/L Chloride Level 95 MEQ/L Carbon Dioxide Level 26.1 MEQ/L Anion Gap 13 MEQ/L Estimat Glomerular Filtration Rate 4 ML/MIN Assessment and Plan Problem List: (1) Non-STEMI (non-ST elevated myocardial infarction) ICD Codes: I21.4 - Non-ST elevation (NSTEMI) myocardial infarction Status: Acute (2) Paroxysmal atrial fibrillation ICD Codes: I48.0 - Paroxysmal atrial fibrillation Status: Acute (3) Ischemic cardiomyopathy ICD Codes: I25.5 - Ischemic cardiomyopathy Status: Chronic (4) Hypertension ICD Codes: I10 - Hypertension Status: Chronic (5) Hyperlipidemia ICD Codes: E78.5 - Hyperlipidemia, unspecified Status: Chronic (6) Multi-vessel coronary artery stenosis ICD Codes: I25.10 - Atherosclerotic heart disease of [place] coronary artery without angina pectoris (7) Chest pain ICD Codes: R07.9 - Chest pain Status: Acute (8) Systolic CHF, acute ICD Codes: I50.21 - Systolic CHF, acute Status: Acute Assessment and Plan 1) NSTEMI with MVCAD Turned down for CABG due to no targets 2) High risk PCI with Impella placement JUAN to mid LAD JUAN to mid LCx Bifurcation stenting of LM with JUAN to LM/LAD and LM/LCx ASA/Plavix 3) Will plan to restart Coumadin Plan for ASA/Plavix/Coumadin Most likely triple therapy for a month then DC ASA and con't Plavix/Coumadin Problem Qualifiers (1) Hypertension: Qualified Codes: I10 - Essential (primary) hypertension (2) Hyperlipidemia: Qualified Codes: E78.2 - Mixed hyperlipidemia José Antonio May DO Apr 21, 2017 13:30
[2017-04-21] MEDS: WARFARIN SOD 5 MG TAB PO SCH (16:02)
--- NOTE | 2017-04-21 18:34 | HHI.PR ---
Subjective Remarks Resting comfortably in bed No event overnight Denied chest and or short of breath No fever or chills Objective Vitals Vital Signs Date Time Temp Pulse Resp B/P (MAP) Pulse Ox O2 Delivery O2 Flow Rate FiO2 04/21/17 18:19 120/60 (80) 04/21/17 18:13 70 04/21/17 18:13 71 04/21/17 16:05 69 04/21/17 16:05 76 04/21/17 15:07 97.9 72 16 125/66 (85) 97 04/21/17 14:33 68 04/21/17 13:44 67 04/21/17 13:27 97.7 65 19 141/67 (91) 97 04/21/17 09:00 64 04/21/17 08:00 64 04/21/17 07:35 98 Room Air 04/21/17 07:35 98.2 65 19 106/59 (75) 98 04/21/17 07:00 65 04/21/17 06:06 66 04/21/17 05:37 66 04/21/17 04:12 66 04/21/17 03:24 71 04/21/17 03:23 97.9 72 106/56 (73) 95 04/21/17 02:23 71 04/21/17 01:16 70 04/21/17 00:00 88 04/20/17 23:39 69 04/20/17 23:38 98.2 66 96/50 (65) 04/20/17 22:00 86 04/20/17 21:00 100 04/20/17 20:00 94 04/20/17 20:00 97.2 67 123/63 (83) 96 04/20/17 20:00 Nasal Cannula 2.00 04/20/17 19:00 68 I/O 04/20/17 04/20/17 04/20/17 04/21/17 04/21/17 04/21/17 07:00 15:00 23:00 07:00 15:00 23:00 Intake Total 480 ml 701 ml Output Total 400 ml 450 ml 2000 ml 0 ml Balance -400 ml 30 ml -2000 ml 701 ml Intake Oral 480 ml 701 ml Output Urine Total 400 ml 450 ml 0 ml Hemodialysis 2000 ml Result Diagram: 04/21/17 0509 04/21/17 0509 Objective Remarks GENERAL: This is a well-nourished, well-developed patient, in no apparent distress. SKIN: No rashes, warm and dry HEAD: Atraumatic. Normocephalic. EYES: Pupils equal round and reactive. Extraocular motions intact. No scleral icterus. ENT: Nose without bleeding, or drainage, Airway patent. NECK: Trachea midline. Supple CARDIOVASCULAR: Regular rate and rhythm without murmurs, gallops, or rubs. RESPIRATORY: Fair air entry bilaterally. No wheezes, rales, or rhonchi. GASTROINTESTINAL: Abdomen soft, non-tender, nondistended. Positive bowel sounds MUSCULOSKELETAL: Extremities without clubbing, cyanosis, or edema. Pedal pulses appreciated NEUROLOGICAL: Awake and alert. Moves all extremity. Normal speech.no focal neurological deficit Procedures 04/13-left heart catheterization A/P Problem List: (1) ESRD on hemodialysis ICD Code: N18.6 - End stage renal disease; Z99.2 - Dependence on renal dialysis (2) Non-STEMI (non-ST elevated myocardial infarction) ICD Code: I21.4 - Non-ST elevation (NSTEMI) myocardial infarction Status: Acute (3) Paroxysmal atrial fibrillation ICD Code: I48.0 - Paroxysmal atrial fibrillation Status: Acute (4) Ischemic cardiomyopathy ICD Code: I25.5 - Ischemic cardiomyopathy Status: Chronic (5) Hypertension ICD Code: I10 - Hypertension Status: Chronic (6) Diabetes mellitus ICD Code: E11.9 - Diabetes mellitus Status: Chronic Assessment and Plan 04/19: Continue close monitoring, follow with cardiology, appreciated their input, they discussed with the patient and plan for high risk stenting tomorrow 04/20: Status post heart catheter, discussed with Dr. May he notified me that he got a good result on stenting LAD, continue monitoring, expected stay 2- 3 more days per cardiology 04/21: Doing well until, continue monitoring under clinical research monitor, cardiology following for further recommendation, plan for triple anticoagulation therapy warfarin and aspirin and Plavix 56-year-old man with Non-ST elevation DE Status post left heart catheterization 04/13/17 He is not a candidate for surgical revascularization per cardiothoracic surgery 2-D echo with EF 25% Continue medical management with beta darwin, aspirin, Lipitor Cardiology following,s/p cath Paroxysmal A. fib with RVR Appreciate input from cardiology Currently on amiodarone 200 mg twice a day Warfarin on hold per cardiology in anticipation of catheterization. We will resume per cardiology and follow INR. INR 1.3 today. Ischemic cardiomyopathy EF~25% Continue with Coreg 25 mg twice a day, Cozaar 50 mg daily Hypertension Hypotensive this morning Currently on Coreg 25 mg twice a day, Clonidine 0.1 mg twice a day, hydralazine 50 mg TID, Cozaar 50 mg daily currently on hold due to hypotension. Patient given dose of Imdur 60 mg this am. Discussed with Sharlene LANDERS, will have BP measurement rechecked around 11 this morning Continue to monitor BP History of chronic systolic CHF Continue with beta darwin, Imdur 60 mg daily. Beta darwin currently on hold due to hypotension. HR 70. Monitor for signs of fluid overload Hyperlipidemia LDL 46 Continue Pravachol 80 mg at bedtime End-stage renal disease on hemodialysis Appreciate input from nephrology On HD Tuesday and Tuesday Anemia - Epogen injections per nephrology - Monitor as indicated Diabetes type 2 Currently on high insulin sliding scale with fingerstick blood glucose monitoring Continue Levemir 30 units at bedtime DVT prophylaxis: Coumadin on hold Problem Qualifiers (1) Hypertension: Qualified Codes: I10 - Essential (primary) hypertension Lencho No MD Apr 21, 2017 18:34
[2017-04-21] MEDS: INSULIN DETEMIR 100 UNITS/ML VIAL SQ SCH (20:08)
[2017-04-21] MEDS: CHLORHEXIDINE GLUCONATE 2 % 1 PACK (2 CLOTHS) TOP SCH (20:08)
[2017-04-22] VITALS (27 sets, daily range): BP systolic 99–138; BP diastolic 57–66; PULSE 62–74; RESP 16–18; TEMP 97.7–98.4; O2SAT 96–98
[2017-04-22 05:31] LABS: INTERNATIONAL NORMALIZED RATIO 1.2 RATIO; PROTHROMBIN TIME - PATIENT 13.4 SEC (9.8-11.6)
[2017-04-22] MEDS: ISOSORBIDE MONONITRATE 60 MG TAB PO SCH (06:23)
--- NOTE | 2017-04-22 09:37 | MA ---
cc: CHRISS LAI DO DATE April 20, 2017 PROCEDURE Left heart catheterization, coronary angiogram, insertion of Impella 2.5 with removal (insertion of external heart assist system into heart percutaneous approach, the system is with cardiac output using Impella continuous, [id number], [id number], CPT 14568) orbital atherectomy left main and LAD, Stuart drug-eluting stent (2.25 x 18) to the mid LAD, Stuart drug-eluting stent (2.75 x 18) to the mid left circ complex, IVUS left main, Stuart drug-eluting stent bifurcation of the left main/LAD/left circumflex (3 x 30, 3 x 12 left circumflex), complex procedure, femoral artery Perclose. Sedation 195 minutes. PREPROCEDURE DIAGNOSIS NSTEMI, acute systolic heart failure, ischemic cardiomyopathy. POSTPROCEDURE DIAGNOSIS NSTEMI, acute systolic heart failure, Stuart drug-eluting stent (2.25 x 18) to the mid-LAD, Chaitanya drug-eluting stent (2.75 x 18) to the mid left circumflex, bifurcation stent of left main/LAD/ left circumflex with Chaitanya drug-eluting stent (3 x 30 LAD, 3 x 12 left circumflex). MEDICATIONS 1. Fentanyl 100 micrograms. 2. Versed 1 milligram. 3. Heparin 14,500 units. 4. Ancef 1 gram. 5. Plavix 600 milligrams. CONTRAST USED 230 cc. FLUOROSCOPY 42 minutes. MODERATE SEDATION 195 minutes. ESTIMATED BLOOD LOSS 70 cc. PROCEDURAL SUMMARY Dandy Singleton is a pleasant 56-year-old male who presented to [facility] Emergency Room on 04/12/17 and was found to have an NSTEMI. He underwent cardiac catheterization which showed multivessel disease. He was seen by surgery and it was decided he was not a surgical candidate due to poor targets. Ejection fraction during cardiac catheterization was 15-20%. Echocardiogram was done which was read as an ejection fraction of 55-60%, although this appears somewhat visually less. Options were discussed with Dandy and his family about not being a bypass candidate and possible high-risk percutaneous intervention. Risks, benefits and alternatives were explained to him and his family. He consented as such. He was brought to lab and prepped in the usual sterile fashion. Left femoral artery was accessed using modified Seldinger technique and placement of a 7-Hebrew sheath. This was easily aspirated and flushed. Right femoral artery was accessed using modified Seldinger technique and placement of a 7-Hebrew sheath which was easily aspirated and flushed. Left femoral artery was then preclosed with two Percloses and then placement of a 13-Hebrew Impella sheath. The patient was given heparin as an anticoagulant and his ACT was greater than 250. JR-4 was advanced over a J-wire to the ascending aorta and into the left ventricle. Impella wire was placed in the left ventricle but there was concern that part of the wire was off the table so it was removed. JR-4 was then advanced into the left ventricle again and the 18 wire was then placed in the left ventricle. Impella 2.5 was placed over the wire into the left ventricle with flows of 2.3. Impella was decided to be placed due to the significance of the coronary artery disease on the left coronary system as well as a MUTUEL CLERK on the RCA and planned atherectomy of the left main as well as conduit to the heart. An EBU guide was advanced over a J-wire and engaged into the left main. A BMW wire was loaded in and [id number] balloon and placed in the distal LAD with removal of the wire. A Viper wire was then fed into the distal LAD through the [id number] balloon. He had prior orbital arthrectomy was done on the left main and proximal LAD for four runs at low speed. orbital atherectomy was then done on the mid-LAD lesion for three runs. A compliant balloon (2 x 12) was then used to predilate the mid-LAD lesion. An Chaitanya drug-eluting stent (2.25 x 18) was then placed in the mid LAD and then inflated over the lesion. A noncompliant balloon (2.25 x 12) was then used to post dilate the lesion. A Prowater wire was then advanced into the distal left circumflex. An Stuart drug-eluting stent (2.75 x 18) was then placed over the mid left circumflex lesion and inflated. A noncompliant balloon (2.75 x 12) was then used to post dilate the stent. IVUS catheter was then advanced wire and recordings were taken through the left main as the guide was disengaged from the left main. IVUS recording show that there was no ostial left main stenosis. A compliant balloon (3 x 20) was then used on the left main and LAD. As there was some concern for possible dissection in the LAD LAD able to rewire it after stenting the left circumflex and so an Chaitanya drug-eluting stent (3 x 30) was then placed in the left main, into the LAD and inflated. A Prowater wire was then pulled back and rewired through the strut of the stent in the left circumflex. The Viper wire was removed and an Chaitanya drug-eluting stent (3 x 12) was then placed in the left main into the circumflex and inflated. BMW wire was then attempted to advance through the two stents into the LAD but was unable to. A run through wire was then used to wire through both stents into the LAD. A compliant balloon (1.5 x 12) was then used to dilate the stents into the LAD followed by a noncompliant balloon (2 x 12). A noncompliant balloon (3 x 15) was used to post dilate the LAD portion of the stent. A noncompliant balloon (3 x 12) was then advanced through the left main into the left circumflex. Kissing balloon technique was done at the of the left main, LAD and left circumflex. Both balloons were removed. Final angiogram shows well opposed stents with no dissections or perforations. At the end of the case the patient's blood pressure was better than at the start at the case and so Impella was weaned down and removed. Impella sheath was removed with closure of the arteriotomy with two Percloses. The right femoral sheath will be planned to be removed once the ACT values are in appropriate range. The patient left the cytology laboratory manager cardiovascularly stable. FINDINGS Left main distal 90%. LAD 90% proximal with a 95% mid lesion in the midportion and distally diffuse disease. Left circumflex 70% in the midportion. LVEDP 15. IMPRESSION 1. NSTEMI. 2. Acute systolic heart failure. 3. High-risk PCI of left main LAD and left circumflex as above with placement and removal of Impella 2.5. 4. Atrial fibrillation. RECOMMENDATIONS 1. Mr. Singleton will be watched overnight in the [facility]U. 2. He will placed on aspirin and Plavix therapy for his drug-eluting stents. 3. After hemoglobin has stabilized he will be restarted on Coumadin with a plan for aspirin, Plavix and Coumadin therapy for possibly 30 days and then removal of the aspirin and continuing on Plavix and Coumadin therapy. 4. Further recommendations will be made based on the hospital course. Thank you for allowing me to see Dandy Singleton. If there are any questions please do not hesitate to call. Chriss Lai DO VGP/EO /9:32 PM /9:22 AM
[2017-04-22] MEDS ORDERED: PLAV75TA29 PO (09:38)
[2017-04-22] MEDS ORDERED: WALKER WHEELS/F1 MIS (10:13)
--- NOTE | 2017-04-22 11:12 | HHI.NPPN ---
Subjective History of Present Illness 56-year-old male known to me from before with past medical history of hypertension, chronic anemia, diabetes mellitus, end-stage renal disease on hemodialysis three times per week came to the hospital with complaint of recurrent retrosternal chest pain. I was called to see the patient for management of hemodialysis. He has been on hemodialysis Tuesday, and Tuesday. Additional Remarks Patient is alert, no chest pain, no SOB, feeling better. Objective Data Data Vital Signs Date Time Temp Pulse Resp B/P (MAP) Pulse Ox O2 Delivery O2 Flow Rate FiO2 04/22/17 07:30 97 Room Air 04/22/17 07:30 68 04/22/17 07:30 98.4 68 18 138/65 (89) 97 04/22/17 06:37 66 04/22/17 05:38 66 04/22/17 04:06 67 04/22/17 03:31 64 04/22/17 03:00 98.1 67 113/59 (77) 98 04/22/17 02:00 66 04/22/17 01:00 64 04/22/17 00:35 97.7 69 107/58 (74) 97 04/22/17 00:00 64 04/21/17 23:00 72 04/21/17 22:00 68 04/21/17 21:00 70 04/21/17 21:00 Room Air 04/21/17 21:00 98.3 73 145/71 (95) 99 04/21/17 20:00 76 04/21/17 19:00 69 04/21/17 18:19 120/60 (80) 04/21/17 18:13 70 04/21/17 18:13 71 04/21/17 16:05 69 04/21/17 16:05 76 04/21/17 15:07 97.9 72 16 125/66 (85) 97 04/21/17 14:33 68 04/21/17 13:44 67 04/21/17 13:27 97.7 65 19 141/67 (91) 97 -: 04/21/17 0509 04/21/17 0509 Physical Exam General Appearance: No Acute Distress, Comfortable Eyes Eye Exam: Pupils Equal Throat Throat Exam: Oral Mucosa [place] & Moist Neck Neck Exam: Neck Supple Pulmonary Resp Exam: Breath Sounds Equal, No Distress, Rhonchi, Decreased Bases Cardiology CV Exam: Regular, Normal Sinus Rhythm Gastrointestinal/Abdomen GI Exam: Soft, Non-Tender, Bowel Sounds Present Extremeties Extremities Exam: Trace Edema Neurologic Neuro Exam: Alert, Awake, Oriented Psychiatric Psych Exam: Appropriate Responses Assessment/Plan Assessment Summary: CHF, Hypertension, End Stage Renal Disease Electrolyte Assessment: Hyperkalemia Problem List: (1) Anemia ICD Codes: D64.9 - Anemia, unspecified Status: Chronic (2) Diabetes mellitus ICD Codes: E11.9 - Diabetes mellitus Status: Chronic (3) HTN (hypertension) ICD Codes: I10 - Essential (primary) hypertension Status: Chronic (4) Non-STEMI (non-ST elevated myocardial infarction) ICD Codes: I21.4 - Non-ST elevation (NSTEMI) myocardial infarction Status: Acute (5) Hyperlipidemia ICD Codes: E78.5 - Hyperlipidemia, unspecified Status: Chronic (6) Systolic CHF, acute ICD Codes: I50.21 - Systolic CHF, acute Status: Acute (7) ESRD (end stage renal disease) ICD Codes: N18.6 - End stage renal disease Status: Acute Plan Patient has NSTEMI, now has no chest pain. BP is stable. Seen by cardiac surgery. Medical Management. HD to continue TTS,K is better after HD. Cardiology follow up noted. Had Cardiac cath. and stenting done, tolerated well. Stable, for HD in AM. D/C planning as per cardiology. Problem Qualifiers (1) Hyperlipidemia: Qualified Codes: E78.2 - Mixed hyperlipidemia Jeana Corona MD Apr 22, 2017 11:12
--- NOTE | 2017-04-22 11:30 | PD.CARD.PN ---
Subjective Subjective Remarks Patient up and ambulating without problem No chest pain/SOB Objective Medications Current Medications Medications (Trade) Dose Ordered Sig/Taj Route Start Time Stop Time Status Last Admin (Phoslo) 1,334 mg TID PO 04/13/17 09:00 04/21/17 18:19 (Coreg) 25 mg BID PO 04/12/17 21:00 04/21/17 20:08 (Catapres) 0.1 mg BID PO 04/12/17 21:00 04/21/17 20:10 (Neurontin) 100 mg TID PO 04/13/17 09:00 04/21/17 18:19 (Apresoline) 50 mg TID PO 04/13/17 09:00 04/21/17 13:33 (Cozaar) 50 mg DAILY PO 04/13/17 09:00 04/20/17 08:38 (Pravachol) 80 mg DAILY PO 04/13/17 09:00 04/21/17 09:08 (NS Flush) 2 ml BID IV FLUSH 04/12/17 21:00 04/21/17 20:07 (NS Flush) 2 ml UNSCH PRN IV FLUSH 04/12/17 20:15 (Nitroglycerin 2% Oint) 1 inch DAILY TOP 04/13/17 09:00 04/20/17 08:38 (Morphine Inj) 2 mg Q3H PRN IV PUSH 04/12/17 20:15 04/14/17 19:43 (Tylenol) 650 mg Q6H PRN PO 04/12/17 20:15 (Colace) 100 mg BID PRN PO 04/12/17 20:15 (Xanax) 0.25 mg Q8H PRN PO 04/12/17 20:15 04/12/17 22:35 (Zofran Inj) 4 mg Q6H PRN IV PUSH 04/12/17 20:15 Miscellaneous Information 1 Q361D XX 04/12/17 20:15 04/12/17 22:00 (Chlorhexidine 2% Cloth) Taper DAILY@04 TOP 04/13/17 04:00 04/09/18 03:59 04/16/17 04:00 (Chlorhexidine 2% Cloth) 3 pack UNSCH PRN TOP 04/12/17 20:15 (D50w (Vial) Inj) 50 ml UNSCH PRN IV PUSH 04/12/17 21:15 (Glucagon Inj) 1 mg UNSCH PRN OTHER 04/12/17 21:15 (NovoLOG SUPPLEMENTAL SCALE) 1 ACHS SLIDING SCALE SQ 04/13/17 08:00 04/21/17 18:43 (Atropine Inj) 0.5 mg UNSCH PRN IV 04/13/17 10:45 Sodium Chloride 1,000 ml @ 0 mls/hr Q0M PRN OTHER 04/13/17 17:19 (Heparin Inj) 8,000 units UNSCH PRN IV FLUSH 04/13/17 17:30 Sodium Chloride 1,000 ml @ 200 mls/hr Q5H PRN IV 04/13/17 17:19 Sodium Chloride 1,000 ml @ 0 mls/hr Q0M PRN OTHER 04/13/17 17:19 (Mannitol Inj) 12.5 gm UNSCH PRN IV 04/13/17 17:30 Albumin Human 100 ml @ 60 mls/hr UNSCH PRN IV 04/13/17 17:30 (NS Flush) 5 ml UNSCH PRN IV FLUSH 04/13/17 17:30 (Heparin Inj) UNSCH PRN .XX 04/13/17 17:30 (Gentamicin (Dialysis) Inj) 20 mg UNSCH PRN OTHER 04/13/17 17:30 (Zofran Inj) 4 mg UNSCH PRN IV PUSH 04/13/17 17:30 (Tylenol) 650 mg UNSCH PRN PO 04/13/17 17:30 (Benadryl) 25 mg UNSCH PRN PO 04/13/17 17:30 (Nitrostat Sl) 0.4 mg UNSCH PRN SL 04/13/17 17:30 (Catapres) 0.1 mg UNSCH PRN PO 04/13/17 17:30 (Epogen Inj) 6,000 units UNSCH PRN IV PUSH 04/13/17 17:30 04/21/17 12:00 (Gelfoam 12 Mm/7 Mm Top) 1 foam UNSCH PRN TOP 04/13/17 17:30 04/14/17 09:05 (Imdur) 60 mg DAILY@07 PO 04/15/17 07:00 04/22/17 06:23 (Cordarone) 200 mg BID PO 04/15/17 21:00 04/21/17 20:07 (Levemir Inj) 30 units HS SQ 04/16/17 21:00 04/21/17 20:08 (Aspirin Chew) 81 mg DAILY CHEW 04/20/17 09:00 04/21/17 09:08 (Plavix) 75 mg DAILY PO 04/21/17 09:00 04/21/17 09:08 (Atropine Inj) 0.5 mg UNSCH PRN IV PUSH 04/20/17 18:15 Pharmacy Profile Note 0 ml @ 0 mls/hr UNSCH OTHER 04/21/17 13:30 (Coumadin) 5 mg DAILY@1600 PO 04/21/17 16:00 04/21/17 16:02 Vital Signs / I&O Vital Signs Date Time Temp Pulse Resp B/P (MAP) Pulse Ox O2 Delivery O2 Flow Rate FiO2 04/22/17 07:30 97 Room Air 04/22/17 07:30 68 04/22/17 07:30 98.4 68 18 138/65 (89) 97 04/22/17 06:37 66 04/22/17 05:38 66 04/22/17 04:06 67 04/22/17 03:31 64 04/22/17 03:00 98.1 67 113/59 (77) 98 04/22/17 02:00 66 04/22/17 01:00 64 04/22/17 00:35 97.7 69 107/58 (74) 97 04/22/17 00:00 64 04/21/17 23:00 72 04/21/17 22:00 68 04/21/17 21:00 70 04/21/17 21:00 Room Air 04/21/17 21:00 98.3 73 145/71 (95) 99 04/21/17 20:00 76 04/21/17 19:00 69 04/21/17 18:19 120/60 (80) 04/21/17 18:13 70 04/21/17 18:13 71 04/21/17 16:05 69 04/21/17 16:05 76 04/21/17 15:07 97.9 72 16 125/66 (85) 97 04/21/17 14:33 68 04/21/17 13:44 67 04/21/17 13:27 97.7 65 19 141/67 (91) 97 I/O 04/21/17 04/21/17 04/21/17 04/22/17 04/22/17 04/22/17 07:00 15:00 23:00 07:00 15:00 23:00 Intake Total 480 ml 701 ml 240 ml Output Total 450 ml 2000 ml 0 ml 2 ml Balance 30 ml -2000 ml 701 ml 238 ml Intake Oral 480 ml 701 ml 240 ml Output Urine Total 450 ml 0 ml 2 ml Hemodialysis 2000 ml Physical Exam GENERAL: NAD, AAOx3 SKIN: Warm and dry. HEAD: Atraumatic. Normocephalic. EYES: Pupils equal and round. No scleral icterus. No injection or drainage. ENT: No nasal bleeding or discharge. Mucous membranes pink and moist. NECK: Trachea midline. No JVD. CARDIOVASCULAR: Regular rate and rhythm. RESPIRATORY: No accessory muscle use. Clear to auscultation. Breath sounds equal bilaterally. GASTROINTESTINAL: Abdomen soft, non-tender, nondistended. Hepatic and splenic margins not palpable. MUSCULOSKELETAL: Extremities without clubbing, cyanosis, or edema. No obvious deformities. Right and left groins no hematoma/bruit/ecchymosis, pulses intact NEUROLOGICAL: Awake and alert. No obvious cranial nerve deficits. Motor grossly within normal limits. Five out of 5 muscle strength in the arms and legs. Normal speech. PSYCHIATRIC: Appropriate mood and affect; insight and judgment normal. Laboratory Laboratory Tests Test 04/22/17 05:04 Prothrombin Time 13.4 SEC Prothromb Time International Ratio 1.2 RATIO Assessment and Plan Problem List: (1) Non-STEMI (non-ST elevated myocardial infarction) ICD Codes: I21.4 - Non-ST elevation (NSTEMI) myocardial infarction Status: Acute (2) Paroxysmal atrial fibrillation ICD Codes: I48.0 - Paroxysmal atrial fibrillation Status: Acute (3) Ischemic cardiomyopathy ICD Codes: I25.5 - Ischemic cardiomyopathy Status: Chronic (4) Hypertension ICD Codes: I10 - Hypertension Status: Chronic (5) Hyperlipidemia ICD Codes: E78.5 - Hyperlipidemia, unspecified Status: Chronic (6) Multi-vessel coronary artery stenosis ICD Codes: I25.10 - Atherosclerotic heart disease of [place] coronary artery without angina pectoris (7) Chest pain ICD Codes: R07.9 - Chest pain Status: Acute (8) Systolic CHF, acute ICD Codes: I50.21 - Systolic CHF, acute Status: Acute Assessment and Plan 1) NSTEMI with MVCAD Turned down for CABG due to no targets 2) High risk PCI with Impella placement JUAN to mid LAD JUAN to mid LCx Bifurcation stenting of LM with JUAN to LM/LAD and LM/LCx ASA/Plavix 3) Coumadin restarted Plan for ASA/Plavix/Coumadin Most likely triple therapy for a month then DC ASA and con't Plavix/Coumadin 4) DC planning Recheck Hgb today, make sure stabilized Con't Coumadin If set up for Coumadin outpatient follow up with PCP, may be discharged tomorrow if stable If concern over the weekend or questions, please call the service for covering physician Patient may shower with assistance Problem Qualifiers (1) Hypertension: Qualified Codes: I10 - Essential (primary) hypertension (2) Hyperlipidemia: Qualified Codes: E78.2 - Mixed hyperlipidemia José Antonio May DO Apr 22, 2017 11:30
[2017-04-22] MEDS: cloNIDine HCL 0.1 MG TAB PO SCH ×2 (12:30→20:32)
[2017-04-22] MEDS: INSULIN ASPART SUPPLEMENTAL SCALE SQ SCH ×3 (12:33→20:37)
[2017-04-22] MEDS: CALCIUM ACETATE 667 MG CAP PO SCH ×2 (12:34→18:16)
[2017-04-22] MEDS: SODIUM CHLORIDE 0.9% FLUSH 10 ML FLUSH IV FLUSH SCH ×2 (12:35→20:32)
[2017-04-22] MEDS: hydrALAZINE HCL 50 MG TAB PO SCH ×2 (12:35→18:00)
[2017-04-22] MEDS: ASPIRIN 81 MG CHEW TAB CHEW SCH (12:39)
[2017-04-22] MEDS: CARVEDILOL 12.5 MG TAB PO SCH ×2 (12:39→20:32)
[2017-04-22] MEDS: CLOPIDOGREL 75 MG TAB PO SCH (12:40)
[2017-04-22] MEDS: LOSARTAN 50 MG TAB PO SCH (12:40)
[2017-04-22] MEDS: AMIODARONE 200 MG TAB PO SCH ×2 (12:40→20:32)
[2017-04-22] MEDS: PRAVASTATIN SOD 80 MG TAB PO SCH (12:44)
[2017-04-22] MEDS: NITROGLYCERIN 2% OINT 1 GM PACKET TOP SCH (12:44)
[2017-04-22 13:14] LABS: AUTOMATED NEUTROPHIL # 6.1 TH/MM3 (1.8-7.7); BASOPHIL # 0.1 TH/MM3 (0-0.2); EOSINOPHIL # 0.1 TH/MM3 (0-0.4); EOSINOPHIL % 1.8 % (0.0-4.0); HEMATOCRIT 30.6 % (39.0-51.0); HEMO FLAGS DIFF FINAL; LYMPH % 12.5 % (9.0-44.0); MEAN CELL VOLUME 95.3 FL (80.0-100.0); MEAN CORPUSCULAR HEMOGLOBIN 31.8 PG (27.0-34.0); MEAN CORPUSCULAR HGB CONC 33.4 % (32.0-36.0); MONO % 8.4 % (0.0-8.0); NEUT % 76.3 % (16.0-70.0); PLATELET COUNT 238 TH/MM3 (150-450); RED BLOOD COUNT 3.21 MIL/MM3 (4.50-5.90); RED CELL DISTRIBUTION WIDTH 13.8 % (11.6-17.2)
--- NOTE | 2017-04-22 16:00 | HHI.PR ---
Subjective Remarks Patient seen and examined he reported no chest pain or short of breath no other complaint Patient has been prepared for discharge however cardiology recommended 1 more night for observation considering his high risk PCI Objective Vitals Vital Signs Date Time Temp Pulse Resp B/P (MAP) Pulse Ox O2 Delivery O2 Flow Rate FiO2 04/22/17 12:00 68 04/22/17 12:00 97.9 68 16 125/60 (81) 96 04/22/17 12:00 96 Room Air 04/22/17 07:30 97 Room Air 04/22/17 07:30 68 04/22/17 07:30 98.4 68 18 138/65 (89) 97 04/22/17 06:37 66 04/22/17 05:38 66 04/22/17 04:06 67 04/22/17 03:31 64 04/22/17 03:00 98.1 67 113/59 (77) 98 04/22/17 02:00 66 04/22/17 01:00 64 04/22/17 00:35 97.7 69 107/58 (74) 97 04/22/17 00:00 64 04/21/17 23:00 72 04/21/17 22:00 68 04/21/17 21:00 70 04/21/17 21:00 Room Air 04/21/17 21:00 98.3 73 145/71 (95) 99 04/21/17 20:00 76 04/21/17 19:00 69 04/21/17 18:19 120/60 (80) 04/21/17 18:13 70 04/21/17 18:13 71 04/21/17 16:05 69 04/21/17 16:05 76 I/O 04/21/17 04/21/17 04/21/17 04/22/17 04/22/17 04/22/17 07:00 15:00 23:00 07:00 15:00 23:00 Intake Total 480 ml 701 ml 240 ml Output Total 450 ml 2000 ml 0 ml 2 ml Balance 30 ml -2000 ml 701 ml 238 ml Intake Oral 480 ml 701 ml 240 ml Output Urine Total 450 ml 0 ml 2 ml Hemodialysis 2000 ml Result Diagram: 04/22/17 1249 04/21/17 0059 Objective Remarks GENERAL: This is a well-nourished, well-developed patient, in no apparent distress. SKIN: No rashes, warm and dry HEAD: Atraumatic. Normocephalic. EYES: Pupils equal round and reactive. Extraocular motions intact. No scleral icterus. ENT: Nose without bleeding, or drainage, Airway patent. NECK: Trachea midline. Supple CARDIOVASCULAR: Regular rate and rhythm without murmurs, gallops, or rubs. RESPIRATORY: Fair air entry bilaterally. No wheezes, rales, or rhonchi. GASTROINTESTINAL: Abdomen soft, non-tender, nondistended. Positive bowel sounds MUSCULOSKELETAL: Extremities without clubbing, cyanosis, or edema. Pedal pulses appreciated NEUROLOGICAL: Awake and alert. Moves all extremity. Normal speech.no focal neurological deficit Procedures 04/13-left heart catheterization A/P Problem List: (1) ESRD on hemodialysis ICD Code: N18.6 - End stage renal disease; Z99.2 - Dependence on renal dialysis (2) Non-STEMI (non-ST elevated myocardial infarction) ICD Code: I21.4 - Non-ST elevation (NSTEMI) myocardial infarction Status: Acute (3) Paroxysmal atrial fibrillation ICD Code: I48.0 - Paroxysmal atrial fibrillation Status: Acute (4) Ischemic cardiomyopathy ICD Code: I25.5 - Ischemic cardiomyopathy Status: Chronic (5) Hypertension ICD Code: I10 - Hypertension Status: Chronic (6) Diabetes mellitus ICD Code: E11.9 - Diabetes mellitus Status: Chronic Assessment and Plan 56-year-old man with Non-ST elevation [place] Status post left HIGH RISK heart catheterization 04/13/17, continue monitoring, cardiology recommended another night for close monitoring possibly discharge tomorrow 04/23 He is not a candidate for surgical revascularization per cardiothoracic surgery 2-D echo with EF 25% Continue medical management with beta darwin, aspirin, Lipitor Cardiology following,s/p cath Paroxysmal A. fib with RVR Appreciate input from cardiology Currently on amiodarone 200 mg twice a day Patient will be on triple therapy warfarin and aspirin Plavix per cardiology Ischemic cardiomyopathy EF~25% Continue with Coreg 25 mg twice a day, Cozaar 50 mg daily Hypertension Hypotensive this morning Currently on Coreg 25 mg twice a day, Clonidine 0.1 mg twice a day, hydralazine 50 mg TID, Cozaar 50 mg daily currently on hold due to hypotension. Patient given dose of Imdur 60 mg this am. Discussed with Sharlene LANDERS, will have BP measurement rechecked around 11 this morning Continue to monitor BP History of chronic systolic CHF Continue with beta darwin, Imdur 60 mg daily. Beta darwin currently on hold due to hypotension. HR 70. Monitor for signs of fluid overload Hyperlipidemia LDL 46 Continue Pravachol 80 mg at bedtime End-stage renal disease on hemodialysis Appreciate input from nephrology On HD Tuesday and Tuesday Anemia - Epogen injections per nephrology - Monitor as indicated Diabetes type 2 Currently on high insulin sliding scale with fingerstick blood glucose monitoring Continue Levemir 30 units at bedtime DVT prophylaxis: Patient will be on Coumadin Plavix and aspirin Problem Qualifiers (1) Hypertension: Qualified Codes: I10 - Essential (primary) hypertension Lencho No MD Apr 22, 2017 16:00
[2017-04-22] MEDS: WARFARIN SOD 5 MG TAB PO SCH (16:01)
[2017-04-22] MEDS: GABAPENTIN 100 MG CAP PO SCH (18:16)
[2017-04-22] MEDS: INSULIN DETEMIR 100 UNITS/ML VIAL SQ SCH (20:37)
[2017-04-23] VITALS (26 sets, daily range): BP systolic 117–157; BP diastolic 59–80; PULSE 59–73; RESP 16–18; TEMP 98–98.3; O2SAT 97–99
[2017-04-23] MEDS: CHLORHEXIDINE GLUCONATE 2 % 1 PACK (2 CLOTHS) TOP SCH (04:00)
[2017-04-23 05:23] LABS: INTERNATIONAL NORMALIZED RATIO 1.2 RATIO; PROTHROMBIN TIME - PATIENT 13.8 SEC (9.8-11.6)
[2017-04-23] MEDS: ISOSORBIDE MONONITRATE 60 MG TAB PO SCH (07:11)
[2017-04-23] MEDS: INSULIN ASPART SUPPLEMENTAL SCALE SQ SCH ×4 (08:00→21:00)
[2017-04-23] MEDS: hydrALAZINE HCL 50 MG TAB PO SCH ×3 (08:58→21:08)
[2017-04-23] MEDS: cloNIDine HCL 0.1 MG TAB PO SCH ×2 (08:59→21:10)
[2017-04-23] MEDS: GABAPENTIN 100 MG CAP PO SCH ×4 (08:59→21:07)
[2017-04-23] MEDS: CALCIUM ACETATE 667 MG CAP PO SCH ×3 (08:59→21:06)
[2017-04-23] MEDS: SODIUM CHLORIDE 0.9% FLUSH 10 ML FLUSH IV FLUSH SCH ×2 (09:00→21:09)
[2017-04-23] MEDS: CARVEDILOL 12.5 MG TAB PO SCH ×2 (09:44→21:10)
[2017-04-23] MEDS: ASPIRIN 81 MG CHEW TAB CHEW SCH (09:44)
[2017-04-23] MEDS: AMIODARONE 200 MG TAB PO SCH ×2 (09:44→21:08)
[2017-04-23] MEDS: LOSARTAN 50 MG TAB PO SCH (09:45)
[2017-04-23] MEDS: CLOPIDOGREL 75 MG TAB PO SCH (09:45)
[2017-04-23] MEDS: PRAVASTATIN SOD 80 MG TAB PO SCH (09:46)
[2017-04-23] MEDS: NITROGLYCERIN 2% OINT 1 GM PACKET TOP SCH (09:46)
--- NOTE | 2017-04-23 11:15 | HHI.DS ---
Discharge Summary Admission Date Apr 12, 2017 at 19:39 Discharge Date: Apr 23, 2017 Admitting Diagnosis NSTEMI, ESRD, HD dependent (1) ESRD on hemodialysis ICD Code: N18.6 - End stage renal disease; Z99.2 - Dependence on renal dialysis (2) Non-STEMI (non-ST elevated myocardial infarction) ICD Code: I21.4 - Non-ST elevation (NSTEMI) myocardial infarction Status: Acute (3) Paroxysmal atrial fibrillation ICD Code: I48.0 - Paroxysmal atrial fibrillation Status: Acute (4) Ischemic cardiomyopathy ICD Code: I25.5 - Ischemic cardiomyopathy Status: Chronic (5) Hypertension ICD Code: I10 - Hypertension Status: Chronic (6) Diabetes mellitus ICD Code: E11.9 - Diabetes mellitus Status: Chronic Procedures 04/13-left heart catheterization Brief History - From Admission HPI from the admitting physician. 56-year-old male comes with history of substernal chest pain radiating to his right shoulder. Patient says that he's been getting on and off chest pain for past 3-4 days. He has end-stage renal disease with hemodialysis dependence. He was getting hemodialyzed today when he started getting the pain again. He was given 3 sublingual nitroglycerin at the dialysis Center and he was recommended to come to the emergency room. Patient did not want to come at that time and went home instead. At home he continued to get the chest pain and decided to come in. No syncopal episode. Patient says that he had a stress test 2 years ago. No history of coronary artery disease. He was atrial fibrillation on the monitor in the emergency department. No history of previous A. fib. His initial troponin was 10 and the patient is admitted to ICU as a non-ST elevation myocardial infarction. CBC/BMP: 04/22/17 1249 04/21/17 0509 Significant Findings Laboratory Tests Test 04/21/17 05:09 04/22/17 05:04 04/22/17 12:49 04/23/17 04:25 Red Blood Count 3.12 MIL/MM3 (4.50-5.90) 3.21 MIL/MM3 (4.50-5.90) Hemoglobin 9.9 GM/DL (13.0-17.0) 10.2 GM/DL (13.0-17.0) Hematocrit 29.3 % (39.0-51.0) 30.6 % (39.0-51.0) Neutrophils (%) (Auto) 75.7 % (16.0-70.0) 76.3 % (16.0-70.0) Monocytes (%) (Auto) 9.0 % (0.0-8.0) 8.4 % (0.0-8.0) Lymphocytes # (Auto) 0.9 TH/MM3 (1.0-4.8) Blood Urea Nitrogen 94 MG/DL (7-18) Creatinine 11.83 MG/DL (0.60-1.30) Random Glucose 201 MG/DL (74-106) Sodium Level 134 MEQ/L (136-145) Potassium Level 5.3 MEQ/L (3.5-5.1) Chloride Level 95 MEQ/L (98-107) Estimat Glomerular Filtration Rate 4 ML/MIN (>89) Prothrombin Time 13.4 SEC (9.8-11.6) 13.8 SEC (9.8-11.6) Imaging Last Impressions Lower Extremity Ultrasound 04/13/17 0000 Signed Impressions: Service Date/Time: Thursday, April 13, 2017 17:56 - CONCLUSION: 1. Venous mapping as above Jamal Nino MD Carotid Artery Ultrasound 04/13/17 0000 Signed Impressions: Service Date/Time: Thursday, April 13, 2017 17:22 - CONCLUSION: No evidence of anatomic or physiologic stenosis. Minimal soft and calcific plaquing of the bulbs and initial segment the internal carotid. Edward Mcallister MD Chest X-Ray 04/12/17 5064 Signed Impressions: Service Date/Time: Wednesday, April 12, 2017 18:04 - CONCLUSION: No acute cardiopulmonary disease. Rachell Hernandez MD PE at Discharge GENERAL: This is a well-nourished, well-developed patient, in no apparent distress. SKIN: No rashes, warm and dry HEAD: Atraumatic. Normocephalic. EYES: Pupils equal round and reactive. Extraocular motions intact. No scleral icterus. ENT: Nose without bleeding, or drainage, Airway patent. NECK: Trachea midline. Supple CARDIOVASCULAR: Regular rate and rhythm without murmurs, gallops, or rubs. RESPIRATORY: Fair air entry bilaterally. No wheezes, rales, or rhonchi. GASTROINTESTINAL: Abdomen soft, non-tender, nondistended. Positive bowel sounds MUSCULOSKELETAL: Extremities without clubbing, cyanosis, or edema. Pedal pulses appreciated NEUROLOGICAL: Awake and alert. Moves all extremity. Normal speech.no focal neurological deficit Pt update on day of discharge Patient reports he is feeling great. Eager to go home. Hospital Course 56-year-old man admitted and treated for the following: Non-ST elevation [place] Status post left HIGH RISK heart catheterization 04/13/17 He is not a candidate for surgical revascularization per cardiothoracic surgery 2-D echo with EF 25% Continue medical management with beta darwin, aspirin, Lipitor patient to follow up with Cardiology outpatient. Paroxysmal A. fib with RVR Cardiology followed. Patient on amiodarone 200 mg twice a day and triple therapy with warfarin, aspirin, and Plavix per cardiology Ischemic cardiomyopathy EF~25% Continue with Coreg 25 mg twice a day, Losartan dose decreased. Hypertension On Coreg 25 mg twice a day, Clonidine 0.1 mg twice a day, hydralazine 50 mg TID, Cozaar 50 mg daily History of chronic systolic CHF Continue with beta darwin, Imdur 60 mg daily. Beta darwin were on hold due to hypotension but BP recovered. Hyperlipidemia LDL 46 Continue Pravachol 80 mg at bedtime End-stage renal disease on hemodialysis Patient followed by nephrology On HD Tuesday and Tuesday Anemia - Epogen injections per nephrology Diabetes type 2 Continue Levemir 30 units at bedtime and sliding scale insulin. Pt Condition on Discharge: Stable Discharge Disposition: Discharge Home Discharge Time: > 30 minutes Discharge Instructions DIET: Follow Instructions for: Heart Healthy Diet Activities you can perform: Weight Bearing as Agustin Follow up Referrals: Cardiology Nephrology PCP Follow-up - 1 Week New Medications: Walker with Front Wheels (Walker with Front Wheels) 1 Mis Mis EA .ROUTE DIRECTED for weakness, #1 0 Refills Alprazolam (Xanax) 0.25 Mg Tab 0.25 MG PO Q8H PRN for ANXIETY, #10 TAB Amiodarone (Amiodarone) 200 Mg Tab 200 MG PO BID for Regulate Heart Beat, #60 TAB 11 Refills Clopidogrel (Plavix) 75 Mg Tab 75 MG PO DAILY for cad, #30 TAB Isosorbide Mononitrate ER (Isosorbide Mononitrate ER) 60 Mg Tab 60 MG PO DAILY@07 for Prevent Heart Failure, #30 TAB 3 Refills Nitroglycerin SL (Nitrostat SL) 0.4 Mg Subl 0.4 MG SL UNSCH PRN for CHEST PAIN, #30 MG Pravastatin (Pravachol) 80 Mg Tab 80 MG PO DAILY for Cholesterol Management, #30 TAB 11 Refills Warfarin (Coumadin) 5 Mg Tab 5 MG PO DAILY@1600 for Prevent Blood Clot, #30 TAB 11 Refills Continued Medications: Aspirin DR (Aspirin 81) 81 Mg Tabdr 81 MG PO DAILY, TAB 0 Refills Calcium Acetate (Phosphate Bin (Calcium Acetate) 667 Mg Cap 1334 MG PO TID Carvedilol (Carvedilol) 25 Mg Tab 25 MG PO BID, #60 TAB 0 Refills Clonidine (Clonidine) 0.1 Mg Tab 0.1 MG PO BID for Blood Pressure Management, #60 TAB 0 Refills Gabapentin (Neurontin) 100 Mg Cap 100 MG PO TID, #90 CAP 0 Refills Hydralazine HCl (Hydralazine HCl) 50 Mg Tablet 50 MG PO TID Insulin Aspart Inj (Novolog Inj) 1,000 Unit/10 Ml Vial 15 UNITS SQ TID for Blood Sugar Management, #10 ML 0 Refills Insulin Detemir Inj (Levemir Inj) 1,000 unit/ 10 ML Vial 30 UNITS SQ HS for Blood Sugar Management, VIAL 0 Refills Do not mix with any other Insulin. Losartan (Losartan) 50 Mg Tab 50 MG PO DAILY for Blood Pressure Management, #30 TAB 0 Refills Discontinued Medications: Losartan (Losartan) 100 Mg Tab 100 MG PO HS for Blood Pressure Management, #30 TAB 0 Refills Simvastatin (Simvastatin) 40 Mg Tab 40 MG PO DAILY for Cholesterol Management, #30 TAB 0 Refills Denita Rothman MD Apr 23, 2017 11:15
[2017-04-23] MEDS ORDERED: ALPR.25 PO (12:20)
--- NOTE | 2017-04-23 13:33 | HHI.NPPN ---
Subjective History of Present Illness 56-year-old male known to me from before with past medical history of hypertension, chronic anemia, diabetes mellitus, end-stage renal disease on hemodialysis three times per week came to the hospital with complaint of recurrent retrosternal chest pain. I was called to see the patient for management of hemodialysis. He has been on hemodialysis Tuesday, and Tuesday. Additional Remarks Patient is alert, no chest pain, no SOB, feeling better. Objective Data Data Vital Signs Date Time Temp Pulse Resp B/P (MAP) Pulse Ox O2 Delivery O2 Flow Rate FiO2 04/23/17 12:00 68 04/23/17 11:51 98.2 62 18 128/64 (85) 97 04/23/17 11:00 65 04/23/17 10:00 64 04/23/17 09:00 64 04/23/17 08:00 98.0 62 16 122/63 (82) 97 04/23/17 08:00 64 04/23/17 07:40 97 Room Air 04/23/17 07:00 63 04/23/17 06:11 61 04/23/17 05:04 61 04/23/17 04:12 62 04/23/17 03:20 98.0 60 16 117/59 (78) 97 04/23/17 03:10 59 04/23/17 02:34 60 04/23/17 01:01 60 04/23/17 00:11 60 04/22/17 23:47 63 04/22/17 23:12 97.9 63 17 99/57 (71) 98 04/22/17 22:57 64 04/22/17 21:15 66 04/22/17 20:15 66 04/22/17 19:20 96 Room Air 04/22/17 19:20 67 04/22/17 19:20 98.1 68 18 131/66 (87) 96 04/22/17 17:00 62 04/22/17 16:00 62 04/22/17 15:30 62 04/22/17 15:30 98.4 62 16 102/58 (73) 97 04/22/17 15:00 64 04/22/17 14:00 66 -: 04/22/17 1249 04/21/17 0509 Physical Exam General Appearance: No Acute Distress, Comfortable Eyes Eye Exam: Pupils Equal Throat Throat Exam: Oral Mucosa [place] & Moist Neck Neck Exam: Neck Supple Pulmonary Resp Exam: Breath Sounds Equal, No Distress, Rhonchi, Decreased Bases Cardiology CV Exam: Regular, Normal Sinus Rhythm Gastrointestinal/Abdomen GI Exam: Soft, Non-Tender, Bowel Sounds Present Extremeties Extremities Exam: Trace Edema Neurologic Neuro Exam: Alert, Awake, Oriented Psychiatric Psych Exam: Appropriate Responses Assessment/Plan Assessment Summary: CHF, Hypertension, End Stage Renal Disease Electrolyte Assessment: Hyperkalemia Problem List: (1) Anemia ICD Codes: D64.9 - Anemia, unspecified Status: Chronic (2) Diabetes mellitus ICD Codes: E11.9 - Diabetes mellitus Status: Chronic (3) HTN (hypertension) ICD Codes: I10 - Essential (primary) hypertension Status: Chronic (4) Non-STEMI (non-ST elevated myocardial infarction) ICD Codes: I21.4 - Non-ST elevation (NSTEMI) myocardial infarction Status: Acute (5) Hyperlipidemia ICD Codes: E78.5 - Hyperlipidemia, unspecified Status: Chronic (6) Systolic CHF, acute ICD Codes: I50.21 - Systolic CHF, acute Status: Acute (7) ESRD (end stage renal disease) ICD Codes: N18.6 - End stage renal disease Status: Acute Plan Patient has NSTEMI, now has no chest pain. BP is stable. Seen by cardiac surgery. Medical Management. HD to continue TTS,K is better after HD. Cardiology follow up noted. Had Cardiac cath. and stenting done, tolerated well. Stable, for HD today and OK to discharge after dialysis D/C planning as per cardiology. Problem Qualifiers (1) Hyperlipidemia: Qualified Codes: E78.2 - Mixed hyperlipidemia Xavier Angel MD Apr 23, 2017 13:33
[2017-04-23] MEDS ORDERED: WARFARIN SOD 2.5 MG TAB PO ONE (16:00)
[2017-04-23] MEDS: GELATIN 12 MM/7 MM FOAM TOP PRN (19:30)
[2017-04-23] MEDS: EPOETIN ALFA 10,000 UNITS/ML VIAL IV PUSH PRN (19:30)
[2017-04-23] MEDS: WARFARIN SOD 5 MG TAB PO SCH (21:51)
[2017-04-23] MEDS: INSULIN DETEMIR 100 UNITS/ML VIAL SQ SCH (22:20)
[2017-04-24] VITALS (11 sets, daily range): BP systolic 99–128; BP diastolic 51–69; PULSE 62–70; RESP 16; TEMP 98–98.2; O2SAT 97–99
[2017-04-24] MEDS: CHLORHEXIDINE GLUCONATE 2 % 1 PACK (2 CLOTHS) TOP SCH (04:00)
[2017-04-24 04:16] LABS: HEMATOCRIT 30.5 % (39.0-51.0); MEAN CELL VOLUME 94.3 FL (80.0-100.0); MEAN CORPUSCULAR HEMOGLOBIN 31.2 PG (27.0-34.0); MEAN CORPUSCULAR HGB CONC 33.1 % (32.0-36.0); PLATELET COUNT 242 TH/MM3 (150-450); RED BLOOD COUNT 3.24 MIL/MM3 (4.50-5.90); RED CELL DISTRIBUTION WIDTH 13.9 % (11.6-17.2); REVIEW FLAG FINAL; WHITE BLOOD COUNT 6.5 TH/MM3 (4.0-11.0)
[2017-04-24 04:39] LABS: INTERNATIONAL NORMALIZED RATIO 1.3 RATIO
[2017-04-24] MEDS: INSULIN ASPART SUPPLEMENTAL SCALE SQ SCH (08:00)
[2017-04-24] MEDS: cloNIDine HCL 0.1 MG TAB PO SCH (08:40)
[2017-04-24] MEDS: CARVEDILOL 12.5 MG TAB PO SCH (08:40)
[2017-04-24] MEDS: CALCIUM ACETATE 667 MG CAP PO SCH (08:40)
[2017-04-24] MEDS: CLOPIDOGREL 75 MG TAB PO SCH (08:41)
[2017-04-24] MEDS: hydrALAZINE HCL 50 MG TAB PO SCH (08:41)
[2017-04-24] MEDS: SODIUM CHLORIDE 0.9% FLUSH 10 ML FLUSH IV FLUSH SCH (08:42)
[2017-04-24] MEDS: NITROGLYCERIN 2% OINT 1 GM PACKET TOP SCH (08:42)
[2017-04-24] MEDS: ASPIRIN 81 MG CHEW TAB CHEW SCH (08:42)
[2017-04-24] MEDS: PRAVASTATIN SOD 80 MG TAB PO SCH (08:42)
[2017-04-24] MEDS: GABAPENTIN 100 MG CAP PO SCH (08:42)
[2017-04-24] MEDS: LOSARTAN 50 MG TAB PO SCH (08:43)
[2017-04-24] MEDS: ISOSORBIDE MONONITRATE 60 MG TAB PO SCH (08:43)
[2017-04-24] MEDS: AMIODARONE 200 MG TAB PO SCH (08:43)
[2017-04-24] MEDS ORDERED: WARFARIN SOD 7.5 MG TAB PO SCH (16:00)
[2017-04-24] MEDS ORDERED: WARFARIN SOD 1 MG TAB PO ONE (16:00)
== END 2017-04-24 10:00 | disposition home or self-care (01) | DRG 215 ==
LOC: NEPE 17:22 → NEDA 19:39 → HIME 21:45 → N04A 04-16 17:36 → HCIS 04-20 14:11 → HCPC 04-20 18:03
PROVIDERS: ADMIT Family Medicine; ATTEND Family Medicine
PROC: 4A023N7 Measurement of Cardiac Sampling and Pressure, Left Heart, Percutaneous Approach (ICD-10-PCS; 2017-04-13)
PROC: B2151ZZ Fluoroscopy of Left Heart using Low Osmolar Contrast (ICD-10-PCS; 2017-04-13)
PROC: B2111ZZ Fluoroscopy of Multiple Coronary Arteries using Low Osmolar Contrast (ICD-10-PCS; 2017-04-13)
PROC: 5A1D70Z Performance of Urinary Filtration, Intermittent, Less than 6 Hours Per Day (ICD-10-PCS; 2017-04-14)
PROC: 02HA3RJ Insertion of Short-term External Heart Assist System into Heart, Intraoperative, Percutaneous Approach (ICD-10-PCS; principal; 2017-04-21)
PROC: 5A0221D Assistance with Cardiac Output using Impeller Pump, Continuous (ICD-10-PCS; 2017-04-21)
PROC: X2C1361 Extirpation of Matter from Coronary Artery, Two Arteries using Orbital Atherectomy Technology, Percutaneous Approach, New Technology Group 1 (ICD-10-PCS; 2017-04-21)
PROC: 0272366 Dilation of Coronary Artery, Three Arteries, Bifurcation, with Three Drug-eluting Intraluminal Devices, Percutaneous Approach (ICD-10-PCS; 2017-04-21)
PROC: B240ZZ3 Ultrasonography of Single Coronary Artery, Intravascular (ICD-10-PCS; 2017-04-21)
DX: I21.4 Non-ST elevation (NSTEMI) myocardial infarction (principal); I50.23 Acute on chronic systolic (congestive) heart failure; N18.6 End stage renal disease; E87.2 Acidosis; I95.9 Hypotension, unspecified; I13.2 Hypertensive heart and chronic kidney disease with heart failure and with stage 5 chronic kidney disease, or end stage renal disease; E11.22 Type 2 diabetes mellitus with diabetic chronic kidney disease; I25.2 Old myocardial infarction; I25.10 Atherosclerotic heart disease of native coronary artery without angina pectoris; I25.5 Ischemic cardiomyopathy; I48.0 Paroxysmal atrial fibrillation; D64.9 Anemia, unspecified; E78.2 Mixed hyperlipidemia; E87.5 Hyperkalemia; F41.9 Anxiety disorder, unspecified; Z79.4 Long term (current) use of insulin; Z99.2 Dependence on renal dialysis
CPT/HCPCS: 33990; 71010; 76937; 80048; 80061; 80076; 82550; 82552; 82948; 83735; 84100; 84443; 84484; 85002; 85025; 85027; 85610; 85730; 87641; 90935; 92924; 92929; 92978; 93005; 93306; 93454; 93458; 93880; 93970; 93998; 94010; 96365; 96374; 96375; 99152; 99153; C1714; C1725; C1753; C1760; C1769; C1874; C1887; C1893; G0269; J0282; J0690; J1644; J1815; J2250; J2270; J3010; J7030; J7060; Q4081; Q9967

== ENCOUNTER 2017-08-01 14:53 | Inpatient (IN) | payer MEDICARE, MEDICAID ==
[2017-08-01] VITALS (7 sets, daily range): BP systolic 99–135; BP diastolic 56–78; PULSE 60–62; RESP 17–25; TEMP 97.8–99.3; O2SAT 94–97
[~2017-08-01] VITALS: Ht 170.2 cm; Wt 104.7 kg
[~2017-08-01 14:53] MED LIST changes: +ALPR.25 PO; +AMIO200T PO; -ASPI-110 PO; +ASPI1TAB57 PO; +COUM5TAB PO; -FURO1TAB60 PO; +HYDR-3800 PO; -HYDR50TA15 PO; +ISOS60TA PO; -LOSA100T PO; +NITR0.4S SL; +PLAV75TA29 PO; +PRAV80TA PO; -SIMV40TA PO; +WALKER WHEELS/F1 MIS
--- NOTE | 2017-08-01 15:42 | RADRPT ---
EXAM DATE/TIME: 08/01/2017 15:34 [facility] COMPARISON: CHEST PA & LAT, April 23, 2015, 13:43. INDICATIONS : Chest pain. MEDICAL HISTORY : Hypertension. Cerebrovascular disease. Diabetes SURGICAL HISTORY : Vas cath placement. ENCOUNTER: Initial ACUITY: 1 day PAIN SCORE: 10/10 LOCATION: Bilateral chest FINDINGS: The lungs are clear. The heart is minimally enlarged. The pulmonary vascularity is normal. There is n o evidence for infiltrate or failure. The portion of the bony skeleton visualized is unremarkable. CONCLUSION: Compensated cardiomegaly otherwise negative . Jason Craig MD FACR on August 01, 2017 at 15:39 Board Certified Radiologist. This report was verified electronically.
[2017-08-01 15:46] LABS: AUTOMATED NEUTROPHIL # 6.5 TH/MM3 (1.8-7.7); BASOPHIL # 0.1 TH/MM3 (0-0.2); BASOPHIL % 0.8 % (0.0-2.0); EOSINOPHIL # 0.1 TH/MM3 (0-0.4); HEMATOCRIT 34.1 % (39.0-51.0); HEMOGLOBIN 11.2 GM/DL (13.0-17.0); LYMPH % 12.7 % (9.0-44.0); MEAN CELL VOLUME 96.5 FL (80.0-100.0); MEAN CORPUSCULAR HEMOGLOBIN 31.7 PG (27.0-34.0); MEAN CORPUSCULAR HGB CONC 32.9 % (32.0-36.0); MEAN PLATELET VOLUME 9.3 FL (7.0-11.0); MONO % 6.7 % (0.0-8.0); MONOCYTE # 0.6 TH/MM3 (0-0.9); NEUT % 78.8 % (16.0-70.0); PLATELET COUNT 131 TH/MM3 (150-450); RED BLOOD COUNT 3.53 MIL/MM3 (4.50-5.90); RED CELL DISTRIBUTION WIDTH 16.3 % (11.6-17.2); WHITE BLOOD COUNT 8.2 TH/MM3 (4.0-11.0)
[2017-08-01 15:57] LABS: INTERNATIONAL NORMALIZED RATIO 2.6 RATIO; PROTHROMBIN TIME - PATIENT 26.1 SEC (9.8-11.6)
[2017-08-01 16:12] LABS: BICARBONATE 24.5 MEQ/L (21.0-32.0); CALCIUM 9.1 MG/DL (8.5-10.1); MAGNESIUM 2.1 MG/DL (1.5-2.5)
[2017-08-01 16:22] LABS: CREATININE 11.06 MG/DL (0.60-1.30); TROPONIN I 13.9 NG/ML (0.02-0.05)
[2017-08-01] MEDS ORDERED: CLOPIDOGREL 75 MG TAB PO SCH (16:45)
[2017-08-01] MEDS ORDERED: SENNOSIDES 8.6 MG TAB PO PRN (16:45)
[2017-08-01] MEDS ORDERED: CHLORHEXIDINE GLUCONATE 2 % 1 PACK (2 CLOTHS) TOP PRN (16:45)
[2017-08-01] MEDS ORDERED: MISCELLANEOUS NURSING INFORMATION XX SCH (16:45)
[2017-08-01] MEDS ORDERED: BISACODYL 10 MG SUPP RECTAL PRN (16:45)
[2017-08-01] MEDS ORDERED: MAGNESIUM HYDROXIDE SUSP 30 ML CUP PO PRN (16:45)
[2017-08-01] MEDS ORDERED: LACTULOSE SYRUP 20 GM/30 ML CUP PO PRN (16:45)
[2017-08-01] MEDS ORDERED: RESP: IPRATROPIUM 0.5 MG/2.5 ML NEB INH PRN (16:45)
[2017-08-01] MEDS ORDERED: GLUCAGON 1 MG/ML VIAL OTHER PRN (17:00)
[2017-08-01] MEDS ORDERED: DEXTROSE 50% IN WATER 50 ML VIAL(D50) IV PUSH PRN (17:00)
--- NOTE | 2017-08-01 17:16 | PD ---
HPI Chief Complaint: Chest Pain Time Seen by Provider: 15:45 Travel History International Travel<30 days: No Contact w/Intl Traveler<30days: No Traveled to known affect area: No History of Present Illness HPI This is a 57-year-old male with a history of diabetes mellitus, renal failure, coronary artery disease, who presents today after having a syncopal episode. He was out with his friend at the gas station when all of a sudden he passed out. Friend reports it was brief. Patient states that he has been having left- sided sharp chest pain. He rates it as a 5 out of 10. There is no radiation. There is no reported nausea or diaphoresis. The patient in March had a non- ST elevation [place]. At that time they did a cardiac cath that required multiple stent placements. He was not a candidate for coronary artery bypass graft at that time. PFSH Past Medical History Hx Anticoagulant Therapy: Yes Autoimmune Disease: No Heart Rhythm Problems: No Cancer: No Cardiac Catheterization: Yes (2010 IN [place]) Cardiovascular Problems: Yes High Cholesterol: Yes Chest Pain: No Congestive Heart Failure: Yes Diabetes: Yes Patient Takes Glucophage: No Dialysis: Yes Diminished Hearing: No Endocrine: No Gastrointestinal Disorders: No Genitourinary: Yes Hepatitis: No Hiatal Hernia: No Hypertension: Yes Immune Disorder: No Implanted Vascular Access Dvce: Yes (FISTULA RT FOREARM) Kidney Stones: No Musculoskeletal: No Neurologic: No Psychiatric: No Reproductive: No Respiratory: No Myocardial Infarction: Yes (2010) Renal Failure: Yes Sleep Apnea: No Thyroid Disease: No Past Surgical History Abdominal Surgery: No AICD: No Arteriovenous Shunt: Yes Cardiac Surgery: No Coronary Artery Bypass Graft: No Coronary Stent: Yes (X 4) Ear Surgery: No Endocrine Surgery: No Eye Surgery: Yes (BILAT. CATARACT SX) Genitourinary Surgery: No Gynecologic Surgery: No Insulin Pump: No Joint Replacement: No Oral Surgery: No Pacemaker: No Thoracic Surgery: No Other Surgery: Yes (R PINKIE TOE REMOVED) Social History Alcohol Use: No Tobacco Use: No Substance Use: No Allergies-Medications (Allergen,Severity, Reaction): Coded Allergies: No Known Allergies (Unverified , 07/08/16) Reported Meds & Prescriptions Reported Meds & Active Scripts Active Xanax (Alprazolam) 0.25 Mg Tab 0.25 Mg PO Q8H PRN Plavix (Clopidogrel Bisulfate) 75 Mg Tab 75 Mg PO DAILY Nitrostat SL (Nitroglycerin) 0.4 Mg Subl 0.4 Mg SL UNSCH PRN Isosorbide Mononitrate ER (Isosorbide Mononitrate) 60 Mg Tab 60 Mg PO DAILY@07 Amiodarone (Amiodarone HCl) 200 Mg Tab 200 Mg PO BID Coumadin (Warfarin) 5 Mg Tab 5 Mg PO DAILY@1600 Reported Hydralazine HCl 50 Mg Tablet 50 Mg PO TID Levemir Inj (Insulin Detemir) 1,000 unit/ 10 ML Vial 30 Units SQ HS Do not mix with any other Insulin. Levemir Inj (Insulin Detemir) 1,000 unit/ 10 ML Vial 25 Units SQ DAILY Do not mix with any other Insulin. Novolog Inj (Insulin Aspart) 1,000 Unit/10 Ml Vial Units SQ TID Losartan (Losartan Potassium) 50 Mg Tab 50 Mg PO DAILY Clonidine (Clonidine HCl) 0.1 Mg Tab 0.1 Mg PO BID Carvedilol 25 Mg Tab 25 Mg PO BID Calcium Acetate (Calcium Acetate (Phosphate Bin) 667 Mg Cap 1,334 Mg PO TID Neurontin (Gabapentin) 100 Mg Cap 300 Mg PO TID Review of Systems Except as stated in HPI: all other systems reviewed are Neg General / Constitutional: No: Fever, Chills HENT: No: Headaches, Lightheadedness Cardiovascular: Positive: Chest Pain or Discomfort, Irregular Rhythm, No: Palpitations Respiratory: No: Cough, Shortness of Breath Gastrointestinal: No: Nausea, Vomiting Genitourinary: No: Dysuria, Decreased Urinary Output (Patient does make urine.) Musculoskeletal: No: Weakness, Pain Neurologic: Positive: Syncope, No: Weakness, Dizziness, Headache Physical Exam Narrative GENERAL: Well-developed well-nourished male in no acute respiratory distress. SKIN: Focused skin assessment warm/dry. HEAD: Atraumatic. Normocephalic. EYES: No scleral icterus. No injection or drainage. ENT: No nasal bleeding or discharge. Mucous membranes pink and moist. NECK: Trachea midline. Supple. CARDIOVASCULAR: Regular rate and rhythm. No murmur appreciated. RESPIRATORY: No accessory muscle use. Clear to auscultation. Breath sounds equal bilaterally. GASTROINTESTINAL: Abdomen soft, non-tender, nondistended. MUSCULOSKELETAL: No obvious deformities. No clubbing. No cyanosis. No edema. NEUROLOGICAL: Awake and alert. No obvious cranial nerve deficits. Motor grossly within normal limits. Normal speech. Data Data Last Documented VS Vital Signs Date Time Temp Pulse Resp B/P (MAP) Pulse Ox O2 Delivery O2 Flow Rate FiO2 08/01/17 17:00 62 21 114/56 (75) 95 Room Air 08/01/17 14:57 97.8 Orders Orders Electrocardiogram (08/01/17 15:07) Basic Metabolic Panel (Bmp) (08/01/17 15:07) Ckmb (Isoenzyme) Profile (08/01/17 15:07) Complete Blood Count With Diff (08/01/17 15:07) Magnesium (Mg) (08/01/17 15:07) Prothrombin Time / Inr (Pt) (08/01/17 15:07) Act Partial Throm Time (Ptt) (08/01/17 15:07) Troponin I (08/01/17 15:07) Lipase (08/01/17 15:07) Chest, Pa & Lat (08/01/17 15:07) CKMB (08/01/17 15:20) CKMB% (08/01/17 15:20) Admit To Inpatient (08/01/17 ) Code Status (08/01/17 16:41) Vital Signs (Adult) BLAIRE.Q1H (08/01/17 16:41) Activity Bed Rest (08/01/17 16:41) Elevate Head Of Bed (08/01/17 16:41) Neuro Checks . ORDERED (08/01/17 16:41) Famotidine Inj (Pepcid Inj) (08/01/17 21:00) Albuterol-Ipratropium Neb (Duoneb Neb) (08/01/17 20:00) Ipratropium Neb (Atrovent Neb) (08/01/17 16:45) Complete Blood Count With Diff (08/02/17 04:00) Comprehensive Metabolic Panel (08/02/17 04:00) Echo 2d Comp With Doppler (08/01/17 16:41) Consult Cardiology (08/01/17 ) Consult Nephrology (08/01/17 ) Academic Affairs Dean / Telemetry BLAIRE.Q8H (08/01/17 16:41) Scd Bilateral/Knee High BLAIRE.BID (08/01/17 16:41) ^ Initiate Protocol (08/01/17 16:41) Instruction (08/01/17 16:41) [facility] [place] (08/01/17 16:45) Chlorhexidine 2% Cloth (Chlorhexidine 2% (08/02/17 04:00) Chlorhexidine 2% Cloth (Chlorhexidine 2% (08/01/17 16:45) Mrsa Pcr Surveillance (08/01/17 16:41) Docusate Sodium-Senna (Janett-Colace) (08/01/17 21:00) Magnesium Hydroxide Liq (Milk Of Magnesi (08/01/17 16:45) Sennosides (Senokot) (08/01/17 16:45) Bisacodyl Supp (Dulcolax Supp) (08/01/17 16:45) Lactulose Liq (Lactulose Liq) (08/01/17 16:45) Inpatient Certification (08/01/17 ) Troponin I (08/01/17 21:00) Troponin I (08/02/17 03:00) Troponin I (08/02/17 09:00) Clopidogrel (Plavix) (08/01/17 16:45) Amiodarone (Cordarone) (08/01/17 21:00) Hydralazine (Apresoline) (08/01/17 18:00) Isosorbide Mononitrate (Imdur) (08/02/17 07:00) Nitroglycerin Sl (Nitrostat Sl) (08/01/17 16:45) Blood Glucose Goal (Criteria) (08/01/17 16:46) Hypoglycemia 70 Mg/Dl Or < (08/01/17 16:46) Notify Dr: Other (08/01/17 16:46) Dextrose 50% In Gabriel (Vial) Inj (D50w (Vi (08/01/17 17:00) Glucagon Inj (Glucagon Inj) (08/01/17 17:00) Insulin Human Reg Supp Scale (Novolin R (08/01/17 18:00) (Hub Use Only)Inp Phy Cons/Ref (08/01/17 ) Warfarin Consult Pharmacy (Coumadin Cons (08/01/17 17:00) (Hub Use Only)In Phy Cons/Ref (08/01/17 ) Admit Order (Ed Use Only) (08/01/17 16:54) Labs Laboratory Tests Test 08/01/17 15:20 White Blood Count 8.2 TH/MM3 Red Blood Count 3.53 MIL/MM3 Hemoglobin 11.2 GM/DL Hematocrit 34.1 % Mean Corpuscular Volume 96.5 FL Mean Corpuscular Hemoglobin 31.7 PG Mean Corpuscular Hemoglobin Concent 32.9 % Red Cell Distribution Width 16.3 % Platelet Count 131 TH/MM3 Mean Platelet Volume 9.3 FL Neutrophils (%) (Auto) 78.8 % Lymphocytes (%) (Auto) 12.7 % Monocytes (%) (Auto) 6.7 % Eosinophils (%) (Auto) 1.0 % Basophils (%) (Auto) 0.8 % Neutrophils # (Auto) 6.5 TH/MM3 Lymphocytes # (Auto) 1.0 TH/MM3 Monocytes # (Auto) 0.6 TH/MM3 Eosinophils # (Auto) 0.1 TH/MM3 Basophils # (Auto) 0.1 TH/MM3 CBC Comment DIFF FINAL Differential Comment Prothrombin Time 26.1 SEC Prothromb Time International Ratio 2.6 RATIO Activated Partial Thromboplast Time 33.7 SEC Blood Urea Nitrogen 82 MG/DL Creatinine 11.06 MG/DL Random Glucose 249 MG/DL Calcium Level 9.1 MG/DL Magnesium Level 2.1 MG/DL Sodium Level 140 MEQ/L Potassium Level 4.7 MEQ/L Chloride Level 104 MEQ/L Carbon Dioxide Level 24.5 MEQ/L Anion Gap 12 MEQ/L Estimat Glomerular Filtration Rate 5 ML/MIN Total Creatine Kinase 358 U/L Creatine Kinase MB 14.8 NG/ML Creatine Kinase MB % 4.1 % Troponin I 13.90 NG/ML Lipase 446 U/L MDM Medical Decision Making Medical Screen Exam Complete: Yes Emergency Medical Condition: Yes Differential Diagnosis ACS versus musculoskeletal pain versus GERD Narrative Course 57-year-old male presents with complaints of chest pain. Patient also had a syncopal episode. Patient had previous non-STEMI in March 2017. Patient's EKG shows no evidence of acute ST elevation or depression. Troponin was elevated at 13. Patient's CK-MB was also elevated. The patient is currently already on Coumadin and Plavix. He has a history of renal failure and is dialysis dependent. He will be admitted to the ICU under the care of Dr. Gorman. Dr. Gorman was down to see the patient. The patient's science interpreter is also been into see the patient. There is cardiology consult placed by Dr. Gorman. Diagnosis Primary Impression: Non-ST elevation [place] (NSTEMI) Additional Impressions: Renal failure, dialysis dependent Diabetes mellitus Paroxysmal atrial fibrillation Multi-vessel coronary artery stenosis HTN (hypertension) Alexandr Doll MD Aug 01, 2017 17:16
[2017-08-01] MEDS: CARVEDILOL 6.25 MG TAB PO SCH ×2 (17:30→20:11)
[2017-08-01] MEDS: hydrALAZINE HCL 50 MG TAB PO SCH (18:00)
[2017-08-01] MEDS ORDERED: SODIUM CHLOR 0.9% 1000 ML INJ 1,000 ML IV PRN (18:07)
[2017-08-01] MEDS ORDERED: SODIUM CHLOR 0.9% 1000 ML INJ 1,000 ML OTHER PRN ×2 (18:07)
[2017-08-01] MEDS: INSULIN NovoLIN REGULAR SUPPLEMENTAL SCALE SQ SCH ×2 (18:10→23:54)
[2017-08-01] MEDS ORDERED: ALBUMIN 25% INJ 100 ML IV PRN (18:15)
[2017-08-01] MEDS ORDERED: MANNITOL 12.5 GM/50 ML VIAL IV PRN (18:15)
[2017-08-01] MEDS ORDERED: diphenhydrAMINE HCL 25 MG CAP PO PRN (18:15)
[2017-08-01] MEDS ORDERED: HEPARIN SODIUM - IV 10,000 UNITS/10 ML VIAL IV FLUSH PRN (18:15)
[2017-08-01] MEDS ORDERED: cloNIDine HCL 0.1 MG TAB PO PRN (18:15)
[2017-08-01] MEDS ORDERED: NITROGLYCERIN 0.4 MG SL 25 TABS/BTL SL PRN (18:15)
[2017-08-01] MEDS ORDERED: SODIUM CHLORIDE 0.9% FLUSH 10 ML FLUSH IV FLUSH PRN (18:15)
[2017-08-01] MEDS ORDERED: HEPARIN SODIUM - IV 10,000 UNITS/10 ML VIAL PRN (18:15)
[2017-08-01] MEDS ORDERED: GENTAMICIN SULFATE 20 MG/2 ML VIAL OTHER PRN (18:15)
[2017-08-01] MEDS ORDERED: TICAGRELOR 90 MG TAB PO ONE (19:00)
[2017-08-01] MEDS ORDERED: HEPARIN-D5W 25,000 U/250 ML 250 ML IV PRN (19:00)
[2017-08-01] MEDS ORDERED: ASPIRIN 81 MG CHEW TAB PO ONE (19:00)
[2017-08-01] MEDS: FAMOTIDINE 20 MG/2 ML VIAL IV PUSH SCH (20:10)
[2017-08-01] MEDS: AMIODARONE 200 MG TAB PO SCH (20:11)
[2017-08-01] MEDS: DOCUSATE SODIUM 50 MG/SENNA 8.6 MG TAB PO SCH (20:11)
[2017-08-01] MEDS: TICAGRELOR 90 MG TAB PO SCH (20:14)
[2017-08-01] MEDS: NITROGLYCERIN 0.4 MG SL 25 TABS/BTL SL PRN ×2 (20:33→20:43)
--- NOTE | 2017-08-01 22:32 | MH ---
cc: JACKI BOSS M.D. DATE OF ADMISSION 08/01/2017 DATE OF 1960 HISTORY OF THE PRESENT ILLNESS The patient is a 57-year-old male with past medical history of coronary artery disease, diabetes mellitus, hypertension, end-stage renal disease on hemodialysis Tuesday, , Tuesday. The patient presented to [facility] ED with midsternal chest pain described as sharp, throbbing pain, 5/10 on the pain scale. The pain is localized. The patient also reports shortness of breath associated with his chest discomfort. He denies any nausea, vomiting or abdominal pain. In addition he denies any orthopnea, PND or edema of lower extremities. His laboratory data showed troponin of 13.9 with a total CK 358 and MB percentage 4.1. In addition his creatinine level is 11.0 with a potassium 4.7. A chest x-ray in the ED showed compensated cardiomegaly otherwise negative. EKG showed sinus bradycardia with first degree AV block, rate of 59 beats per minute, findings similar to prior EKG from March. He is on Coumadin and Plavix at home and his INR is therapeutic at 2.6. The patient was last hospitalized on April 12, 2017 for NSTEMI as well and at that time he underwent cardiac catheterization by Dr. May with multiple drug-eluting stents placed. His cath showed moderate to severe coronary artery disease with EF of 20%. He was evaluated by cardiothoracic surgery at that time for evaluation of CABG however, he was turned down due to no target vessels. The patient denies any fever, chills, cough or any constitutional symptoms. PAST MEDICAL HISTORY Significant for: 1. Previous NSTEMI in March. 2. Diabetes mellitus. 3. Hypertension. 4. End-stage renal disease on hemodialysis Tuesday, , Tuesday. 5. Anemia. 6. Hyperlipidemia. PAST SURGICAL HISTORY 1. History of cataract surgery. 2. History of right fifth toe amputation. SOCIAL HISTORY No history of tobacco or alcohol use. FAMILY HISTORY Noncontributory to current present illness. ALLERGIES NO KNOWN DRUG ALLERGIES. MEDICATIONS Reported medications include: 1. Coreg. 2. Clonidine. 3. Benadryl. 4. Losartan. 5. Coreg. 6. Imdur. 7. Levemir insulin. REVIEW OF SYSTEMS As per HPI. The rest of the review of symptoms unremarkable. PHYSICAL EXAMINATION GENERAL: A 57-year male lying in bed in no acute distress. VITAL SIGNS: Temperature 97.8, pulse of 63, blood pressure 121/62, saturation 95% on room air. HEENT: Atraumatic, normocephalic. Pupils equal, round and reactive to light and accommodation. Extraocular muscles intact. Conjunctivae pink. Nonicteric sclerae. Oral mucosa within normal. NECK: Supple. No JVD, adenopathy or thyromegaly. Trachea midline. CARDIOVASCULAR: Regular rate and rhythm. Normal S1-S2. No murmurs, rubs or gallops noted. LUNGS: Pulmonary exam, bilateral equal air entry. No rales or wheezing. ABDOMEN: Soft, obese, nontender. No distension. Positive bowel sounds. EXTREMITIES: No clubbing, cyanosis or edema. NEUROLOGIC: No focal sensory deficit. LABORATORY DATA WBC 8.2, hemoglobin 11, hematocrit 34, platelet count 131. Sodium 140, potassium 4.7, chloride 104, CO2 24, BUN 82, creatinine 11, glucose 246. Troponin 13.9. Total CK 358, CK-MB 4.1. Lipase 446. WBC 8.2, hemoglobin 11.2, hematocrit 34, platelet count 131. INR 2.6, PT 26.1, PTT 33.7. IMAGING Radiographic studies, a chest x-ray showed cardiomegaly otherwise negative. IMPRESSION 1. Non-ST elevation myocardial infarction. 2. End-stage renal disease on hemodialysis. 3. Coagulopathy secondary to Coumadin. 4. Diabetes mellitus. 5. Hypertension. 6. Hyperlipidemia. 7. Obesity. RECOMMENDATIONS 1. The patient is awake, alert. Monitor neurological status and avoid any sedatives. 2. Oxygen p.r.n. to maintain sats above 92%. 3. Bronchodilators in the form of the q.4 plus q.2h as needed for shortness of breath. 4. Monitor heart rate and blood pressure closely and maintain MAP greater 65 mmHg. Monitor cardiac enzymes with troponins and we will obtain 2-D echo to evaluate LV function. 5. Consult cardiology service. The patient is known to Dr. May. He underwent cardiac catheterization in March 2017 with multiple drug eluding stents placed. The patient was turned down by CT surgery for CABG as he had no targets. 6. Continue with amiodarone 200 mg b.i.d., hydralazine 50 mg t.i.d., Imdur 60 mg daily, Plavix 75 mg daily and Coumadin. 7. Monitor renal function and avoid nephrotoxins. The patient was seen by Dr. Corona in the ED. He is on hemodialysis Tuesday, and Tuesday. 8. Place on p.o. heart healthy diet and Pepcid 20 mg q.12 for GI prophylaxis. 9. Monitor for signs of infections which include fever and WBC. Will hold off on antibiotics at this time as there is no evidence of any infectious process. Chest x-ray in the ED showed cardiomegaly otherwise no acute process. 10. Monitor CBC and coags. Consult pharmacy for Coumadin management. INR is 2.[address] on sliding scale insulin with Accu-Cheks for glycemic control. 12. GI prophylaxis with Pepcid and DVT prophylaxis with SCDs. In addition he is on Coumadin and no need for any further anticoagulation. Further recommendations will be based on hospital course. MD KAL Roper/KK /5:08 PM /10:02 PM
[2017-08-01] MEDS: RESP: ALBUTEROL 2.5 MG/IPRATROPIUM 0.5 MG NEB (SCH) INH (23:28)
[2017-08-01] MEDS: NITROGLYCERIN 2% OINT 1 GM PACKET TOPICAL SCH (23:54)
[2017-08-02] VITALS (14 sets, daily range): BP systolic 92–146; BP diastolic 51–74; PULSE 60–85; RESP 19–32; TEMP 98–101.7; O2SAT 92–99
[2017-08-02 03:07] LABS: AUTOMATED NEUTROPHIL # 5.7 TH/MM3 (1.8-7.7); BASOPHIL # 0.1 TH/MM3 (0-0.2); BASOPHIL % 1.1 % (0.0-2.0); EOSINOPHIL # 0.2 TH/MM3 (0-0.4); HEMATOCRIT 32.7 % (39.0-51.0); HEMOGLOBIN 10.8 GM/DL (13.0-17.0); LYMPH % 13.4 % (9.0-44.0); MEAN CORPUSCULAR HEMOGLOBIN 31.8 PG (27.0-34.0); MEAN CORPUSCULAR HGB CONC 33.1 % (32.0-36.0); MEAN PLATELET VOLUME 9.2 FL (7.0-11.0); MONO % 7.8 % (0.0-8.0); MONOCYTE # 0.6 TH/MM3 (0-0.9); NEUT % 75.7 % (16.0-70.0); PLATELET COUNT 124 TH/MM3 (150-450); RED CELL DISTRIBUTION WIDTH 16.3 % (11.6-17.2); WHITE BLOOD COUNT 7.6 TH/MM3 (4.0-11.0)
[2017-08-02 03:15] LABS: INTERNATIONAL NORMALIZED RATIO 2.5 RATIO; PROTHROMBIN TIME - PATIENT 24.8 SEC (9.8-11.6)
[2017-08-02 03:23] LABS: AST (GOT) 43 U/L (15-37); BICARBONATE 24.9 MEQ/L (21.0-32.0); BLOOD UREA NITROGEN 87 MG/DL (7-18); CALCIUM 8.8 MG/DL (8.5-10.1); CHLORIDE 106 MEQ/L (98-107); GLOMERULAR FILTRATION RATE 5 ML/MIN (>89); GLUCOSE,RANDOM 149 MG/DL (74-106); SODIUM (NA) 142 MEQ/L (136-145)
[2017-08-02] MEDS: RESP: ALBUTEROL 2.5 MG/IPRATROPIUM 0.5 MG NEB (SCH) INH ×5 (03:24→21:23)
[2017-08-02 03:28] LABS: ALKALINE PHOSPHATASE 101 U/L (45-117); ALT (GPT) 47 U/L (12-78); TOTAL BILIRUBIN ADULT 0.6 MG/DL (0.2-1.0); TOTAL PROTEIN 6.4 GM/DL (6.4-8.2)
[2017-08-02 03:30] LABS: CREATININE 11.38 MG/DL (0.60-1.30)
[2017-08-02] MEDS: CHLORHEXIDINE GLUCONATE 2 % 1 PACK (2 CLOTHS) TOP SCH ×2 (04:00→22:52)
[2017-08-02] MEDS: ACETAMINOPHEN 325 MG TAB PO PRN ×3 (04:08→23:10)
[2017-08-02] MEDS: NITROGLYCERIN 0.4 MG SL 25 TABS/BTL SL PRN ×2 (05:27→05:36)
[2017-08-02] MEDS: ISOSORBIDE MONONITRATE 60 MG TAB PO SCH (05:52)
[2017-08-02] MEDS: NITROGLYCERIN 2% OINT 1 GM PACKET TOPICAL SCH ×4 (05:52→22:52)
[2017-08-02] MEDS: INSULIN NovoLIN REGULAR SUPPLEMENTAL SCALE SQ SCH ×4 (06:00→22:52)
--- NOTE | 2017-08-02 06:59 | MB ---
cc: ZAINAB GIBSON MD DATE OF CONSULTATION 08/01/2017 REASON FOR CONSULTATION End-stage renal disease on hemodialysis. HISTORY OF PRESENT ILLNESS This is a 57-year-old man known to me from before with past medical history of hypertension, ischemic heart disease, end-stage renal disease on hemodialysis, chronic anemia, diabetes mellitus. He came to the hospital with complaint of chest pain and mild shortness of breath. I was called to see the patient because of management of dialysis. The patient has been on hemodialysis three times per week - Tuesday, and Tuesday, and according to the patient he has not been missing any treatment. He went for his dialysis on Tuesday. The patient's chest pain started off and on but according to him it was not very severe and he went to get gas in his car with his friend and at the gas station he collapsed and fell down and lost of consciousness for almost a minute. The patient was leaning against his car when he started feeling dizzy and he does not remember exactly what happened. The patient's friend called for help and the patient woke up. He was admitted in March and at that time he had a cardiac catheterization by Dr. May and it was found that he has severe ischemic heart disease and he was seen by Cardiac Surgery and it is thought that he is not a candidate for surgery and he underwent stenting done on April 22. The patient has some pain in his thigh area and then he was on one of the statins and it was stopped. It was initially reduced in the dose and then it was stopped by his primary physician with the thought of improving the pain, but he has some kind of cramping in the thigh and the legs sometime off and on. The patient denies missing any dialysis treatment recently, although he has still been gaining too much weight in between the treatments. PAST MEDICAL HISTORY 1. Hypertension. 2. Diabetes mellitus. 3. Chronic anemia. 4. Hyperlipidemia. 5. Ischemic heart disease. 6. End-stage renal disease on hemodialysis. PAST SURGICAL HISTORY 1. A-V fistula surgery. 2. Right fifth toe amputation. 3. Cataract surgery. REVIEW OF SYSTEMS The patient has mild chest pain, retrosternal off and on, going on for 1 or 2 days and also has shortness of breath on insertion. He has a history of syncope and loss of consciousness today when he woke up within a minute or so, according to his friend. He was not feeling dizzy before all this happened and denies any chest pain at that time. Occasionally has nausea. There is no vomiting and no diarrhea, no abdominal pain. SOCIAL HISTORY The patient is single. He has a past history of smoking. There is no history of heavy alcoholism. FAMILY HISTORY Noncontributory. ALLERGIES He has no known drug allergies. MEDICATIONS Currently he is on following medications - 1. Amiodarone 200 mg b.i.d. 2. Plavix 75 mg once per day. 3. Imdur 60 mg once a day. 4. Coumadin 5 mg daily. 5. DuoNeb nebulizer. 6. Pepcid 10 mg q. 12 hours. 7. Carvedilol 6.25 mg 12 hours. 8. Hydralazine 50 mg t.i.d. 9. Atrovent nebulizer. 10. Senokot. 11. Dulcolax. 12. Lactulose. PHYSICAL EXAMINATION GENERAL: On examination the patient is awake, alert. He is not in acute distress. VITAL SIGNS: His blood pressure was 120/61, temperature is 97.8, oxygen saturation on room air 95-97%. HEENT: Pupils equal, reacting to light. Nonicteric sclerae. Conjunctivae normal. NECK: Supple. JVD is not elevated. LUNGS: The patient has bilateral good air entry with occasional wheezing. HEART: S1, S2. Regular rhythm. ABDOMEN: Distended, soft. There is no tenderness. EXTREMITIES: There is mild edema in the legs. INVESTIGATIONS WBC count is 8.2, hemoglobin 9.2, platelet count of 131; neutrophils 78.8%. Sodium is 140, potassium 4.7, chloride 104, bicarb 24.1, BUN 82, creatinine 11.0. Creatinine kinase 358. Troponin is 13.9. Lipase 446. IMAGING STUDIES The patient had a chest x-ray done which shows that he has lung jacob clear. There is some increased vascular marking with cardiomegaly. ASSESSMENT AND PLAN 1. Non-ST elevation [place] with high troponin. 2. History of syncope. 3. End-stage renal disease on hemodialysis. 4. Hypertension. 5. Diabetes mellitus. 6. Hyperlipidemia. The patient has elevated troponin and cardiology has been consulted. He recently had cardiac catheterization with stenting done in March; currently he does not have any chest pain. The patient has been on warfarin. His blood pressure is stable. The potassium is normal. He will have his hemodialysis tomorrow. Awaiting for Cardiology to see him for evaluation and workup. Thank you for this consultation. I will follow the patient while he is in the hospital. Zainab Gibson MD AQJ/SSB /5:59 PM /6:18 AM
--- NOTE | 2017-08-02 07:48 | MB ---
cc: FARHAT PATTERSON M.D. DATE OF CONSULTATION 08/01/2017 REASON FOR CONSULTATION Evaluation of chest pain and elevated troponin. HISTORY OF PRESENT ILLNESS Dandy Singleton is a 57-year-old man with known coronary artery disease. The patient was found to have very severe disease on a cath, April 12. The right coronary artery was occluded and there was complex disease involving the left main, LAD and circumflex. He underwent a complex Impella supported intervention of the left main, LAD and circumflex by Dr. May April 20, 2017. The patient was in his usual state of health today. He was at the gas station. He was leaning against the car and the next he knew he was on the ground. A friend drove him to the hospital and he is a little bit of a chest pain described as a slight pressure in the left chest. He denies lack of compliance with his clopidogrel and warfarin and his INR is therapeutic. He still has some slight pressure going on, although he says it is minimal. Apparently did not sustain any major injuries during the fall. PAST MEDICAL HISTORY Includes: 1. Coronary disease 2. Cardiomyopathy 3. CHF 4. Stage V chronic kidney disease on dialysis 5. Diabetes 6. Diabetic retinopathy 7. Hyperlipidemia 8. Hypertensive heart disease 9. 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 Obesity PAST SURGICAL HISTORY Includes: 1. Amputation right fifth toe 2. AV fistula right upper extremity 3. Previous cath 4. Cataract surgery MEDICATIONS The medication list is charted. He is currently on: 1. Clopidogrel and Warfarin. 2. He is on Carvedilol for beta blockers. 3. He is on other hypertensive medications as well. ALLERGIES None known. FAMILY HISTORY Positive for coronary disease. SOCIAL HISTORY He has never smoked. REVIEW OF SYSTEMS Noncontributory PHYSICAL EXAM This is an obese, pleasant white male who does not appear to be in acute distress at time I am seeing him. VITAL SIGNS: Charted. HEENT: Exam unremarkable. NECK: No JVD. There are no bruits. CARDIAC: Exam shows a normal S1 and normal S2, regular rate and rhythm with a great 2/6 systolic murmur. ABDOMEN: Soft. EXTREMITIES: Reveal mildly diminished pedal pulses. EKG shows sinus rhythm, LVH, LV strain first-degree block. LABORATORY CPK is 358, troponin 13.9, creatinine of 11.06. Chest x-ray is showing cardiomegaly. IMPRESSION This is a 57-year-old man who has had previous complex intervention April 20 and is presenting now having had a non-ST segment elevation [place] based on the enzymes which occurred during an episode of syncope at the gas station. He is apparently having slight discomfort. PLAN I am going to add nitroglycerin ointment one inch q.6 h first dose now. I am going to go ahead and change his clopidogrel to Brilinta, give him a loading dose. We will verify now to be checked so we can formally diagnose if he is a Plavix non-responder. I will go ahead and give him baby aspirin, go ahead and initiate a heparin drip without a bolus. This is at the request of Dr. May when I called and gave him an update on the patient. The patient will likely need a repeat catheterization this admission. Dr. May will resume care tomorrow. MD RYAN Pizano/CHANG /6:58 PM /7:34 AM
[2017-08-02] MEDS: hydrALAZINE HCL 50 MG TAB PO SCH ×3 (09:01→18:00)
[2017-08-02] MEDS: CARVEDILOL 6.25 MG TAB PO SCH ×2 (09:01→22:50)
[2017-08-02] MEDS: AMIODARONE 200 MG TAB PO SCH ×2 (09:03→22:51)
[2017-08-02] MEDS: FAMOTIDINE 20 MG/2 ML VIAL IV PUSH SCH ×2 (09:05→22:52)
[2017-08-02] MEDS: DOCUSATE SODIUM 50 MG/SENNA 8.6 MG TAB PO SCH ×2 (09:07→22:50)
[2017-08-02] MEDS: ASPIRIN 81 MG CHEW TAB PO SCH (09:07)
[2017-08-02] MEDS: TICAGRELOR 90 MG TAB PO SCH ×2 (09:07→22:51)
--- NOTE | 2017-08-02 09:32 | HHI.CCPN ---
Subjective Remarks/Hospital Course Patient is a 57-year-old male with past medical history of coronary artery disease, diabetes mellitus, hypertension, end-stage renal disease on hemodialysis Tuesday, , Tuesday. The patient presented to [facility] ED with midsternal chest pain described as sharp, throbbing pain , 5/10 on the pain scale. The pain is localized. The patient also reports shortness of breath associated with his chest discomfort. He denies any nausea , vomiting or abdominal pain. In addition he denies any orthopnea, PND or edema of lower extremities. His laboratory data showed troponin of 13.9 with a total CK 358 and MB percentage 4.1. In addition his creatinine level is 11.0 with a potassium 4.7. A chest x-ray in the ED showed compensated cardiomegaly otherwise negative. EKG showed sinus bradycardia with first degree AV block, rate of 59 beats per minute, findings similar to prior EKG from March. He is on Coumadin and Plavix at home and his INR is therapeutic at 2.6. The patient was last hospitalized on April 12, 2017 for NSTEMI as well and at that time he underwent cardiac catheterization by Dr. May with multiple drug-eluting stents placed. His cath showed moderate to severe coronary artery disease with EF of 20%. He was evaluated by cardiothoracic surgery at that time for evaluation of CABG however, he was turned down due to no target vessels. The patient denies any fever, chills, cough or any constitutional symptoms. 08/02 No events overnight. Patient is lying in bed in NAD. Started on Heparin drip. Objective Vital Signs Date Time Temp Pulse Resp B/P (MAP) Pulse Ox O2 Delivery O2 Flow Rate FiO2 08/02/17 08:52 95 Nasal Cannula 5.00 08/02/17 06:00 70 08/02/17 05:27 86 08/02/17 04:00 98.4 19 146/67 (93) Intake and Output 08/02/17 08/02/17 08/03/17 08:00 16:00 00:00 Intake Total 351 ml Output Total 0 ml Balance 351 ml Result Diagram: 08/02/17 0236 08/02/17 0236 Other Results Laboratory Tests Test 08/01/17 15:20 08/01/17 19:00 08/01/17 20:47 08/01/17 21:30 White Blood Count 8.2 TH/MM3 Red Blood Count 3.53 MIL/MM3 Hemoglobin 11.2 GM/DL Hematocrit 34.1 % Mean Corpuscular Volume 96.5 FL Mean Corpuscular Hemoglobin 31.7 PG Mean Corpuscular Hemoglobin Concent 32.9 % Red Cell Distribution Width 16.3 % Platelet Count 131 TH/MM3 Mean Platelet Volume 9.3 FL Neutrophils (%) (Auto) 78.8 % Lymphocytes (%) (Auto) 12.7 % Monocytes (%) (Auto) 6.7 % Eosinophils (%) (Auto) 1.0 % Basophils (%) (Auto) 0.8 % Neutrophils # (Auto) 6.5 TH/MM3 Lymphocytes # (Auto) 1.0 TH/MM3 Monocytes # (Auto) 0.6 TH/MM3 Eosinophils # (Auto) 0.1 TH/MM3 Basophils # (Auto) 0.1 TH/MM3 CBC Comment DIFF FINAL Differential Comment Prothrombin Time 26.1 SEC Prothromb Time International Ratio 2.6 RATIO Activated Partial Thromboplast Time 33.7 SEC Blood Urea Nitrogen 82 MG/DL Creatinine 11.06 MG/DL Random Glucose 249 MG/DL Calcium Level 9.1 MG/DL Magnesium Level 2.1 MG/DL Sodium Level 140 MEQ/L Potassium Level 4.7 MEQ/L Chloride Level 104 MEQ/L Carbon Dioxide Level 24.5 MEQ/L Anion Gap 12 MEQ/L Estimat Glomerular Filtration Rate 5 ML/MIN Total Creatine Kinase 358 U/L Creatine Kinase MB 14.8 NG/ML Creatine Kinase MB % 4.1 % Troponin I 13.90 NG/ML 13.40 NG/ML Lipase 446 U/L Nasal Screen MRSA (PCR) MRSA NOT DETECTED Platelet Function P2Y12 React Units 214 PRU Test 08/02/17 02:36 White Blood Count 7.6 TH/MM3 Red Blood Count 3.40 MIL/MM3 Hemoglobin 10.8 GM/DL Hematocrit 32.7 % Mean Corpuscular Volume 96.0 FL Mean Corpuscular Hemoglobin 31.8 PG Mean Corpuscular Hemoglobin Concent 33.1 % Red Cell Distribution Width 16.3 % Platelet Count 124 TH/MM3 Mean Platelet Volume 9.2 FL Neutrophils (%) (Auto) 75.7 % Lymphocytes (%) (Auto) 13.4 % Monocytes (%) (Auto) 7.8 % Eosinophils (%) (Auto) 2.0 % Basophils (%) (Auto) 1.1 % Neutrophils # (Auto) 5.7 TH/MM3 Lymphocytes # (Auto) 1.0 TH/MM3 Monocytes # (Auto) 0.6 TH/MM3 Eosinophils # (Auto) 0.2 TH/MM3 Basophils # (Auto) 0.1 TH/MM3 CBC Comment DIFF FINAL Differential Comment Prothrombin Time 24.8 SEC Prothromb Time International Ratio 2.5 RATIO Activated Partial Thromboplast Time 39.5 SEC Blood Urea Nitrogen 87 MG/DL Creatinine 11.38 MG/DL Random Glucose 149 MG/DL Total Protein 6.4 GM/DL Albumin 3.0 GM/DL Calcium Level 8.8 MG/DL Alkaline Phosphatase 101 U/L Aspartate Amino Transf (AST/SGOT) 43 U/L Alanine Aminotransferase (ALT/SGPT) 47 U/L Total Bilirubin 0.6 MG/DL Sodium Level 142 MEQ/L Potassium Level 4.4 MEQ/L Chloride Level 106 MEQ/L Carbon Dioxide Level 24.9 MEQ/L Anion Gap 11 MEQ/L Estimat Glomerular Filtration Rate 5 ML/MIN Troponin I 11.50 NG/ML Imaging Last Impressions Chest X-Ray 08/01/17 1507 Signed Impressions: Service Date/Time: Tuesday, August 01, 2017 15:34 - CONCLUSION: Compensated cardiomegaly otherwise negative . Jason Craig MD FACR Objective Remarks GENERAL: Patient is lying in bed in NAD SKIN: Warm and dry. HEAD: Normocephalic. EYES: No scleral icterus. No injection or drainage. NECK: Supple, trachea midline. No JVD or lymphadenopathy. CARDIOVASCULAR: Regular rate and rhythm without murmurs, gallops, or rubs. RESPIRATORY: Breath sounds equal bilaterally. No accessory muscle use. GASTROINTESTINAL: Abdomen soft, non-tender, nondistended. MUSCULOSKELETAL: No cyanosis, or edema. Neuro: Awake and alert A/P Assessment and Plan 1. Resp Insuff 2. NSTEMI 3. ESRD 4. Coagulopathy 5. Diabetes mellitus. 6. Hypertension. 7. Hyperlipidemia. 7. Obesity. Plan Neuro: Monitor neuro status. Awake and alert Pulm: Continue with oxygen maintain sats above 92%. Bronchodilators CV: Monitor HR and BP and maintain MAP >65mmHg. Monitor cardiac enzymes with troponins, for 2-D echo today Cards is following- Dr. May. Started on Heparin drip per cards, d/c Coumadin- INR 2.5 today s/p cardiac catheterization in March 2017 with multiple drug eluding stents placed. The patient was turned down by CT surgery for CABG. Might need repeat Cath . On Amiodarone 200 mg b.i.d., hydralazine 50 mg t.i.d., Imdur 60 mg daily, Brilinta, ASA, NTG top 1"Q6 : Monitor renal function and avoid nephrotoxins. Renal- Dr. Corona On HD T, ,S GI: p.o. heart healthy diet and Pepcid 20 mg q.12 for GI prophylaxis. ID: Monitor for signs of infections( fever and WBC). Panculture if spikes a fever Heme: Monitor CBC and coags- on Heparin drip Endo: SSI with Accu-Cheks for glycemic control. GI prophylaxis with Pepcid and DVT prophylaxis with SCDs, heparin drip Level 3 Nona Jones MD Aug 02, 2017 09:32
[2017-08-02] MEDS ORDERED: PNEUMOCOCCAL POLYVALENT INJ 25 MCG/0.5 ML SYR IM ONE (10:00)
--- NOTE | 2017-08-02 10:04 | HHI.NPPN ---
Subjective General Problems: Hypertension Renal Failure: End Stage Renal Disease History of Present Illness This is a 57-year-old man known to me from before with past medical history of hypertension, ischemic heart disease, end-stage renal disease on hemodialysis, chronic anemia, diabetes mellitus. He came to the hospital with complaint of chest pain and mild shortness of breath. I was called to see the patient because of management of dialysis. The patient has been on hemodialysis three times per week - Tuesday, and Tuesday, and according to the patient he has not been missing any treatment. He went for his dialysis on Tuesday. The patient's chest pain started off and on but according to him it was not very severe and he went to get gas in his car with his friend and at the gas station he collapsed and fell down and lost of consciousness for almost a minute. The patient was leaning against his car when he started feeling dizzy and he does not remember exactly what happened. The patient's friend called for help and the patient woke up. He was admitted in March and at that time he had a cardiac catheterization by Dr. May and it was found that he has severe ischemic heart disease and he was seen by Cardiac Surgery and it is thought that he is not a candidate for surgery and he underwent stenting done on April 22. The patient has some pain in his thigh area and then he was on one of the statins and it was stopped. It was initially reduced in the dose and then it was stopped by his primary physician with the thought of improving the pain, but he has some kind of cramping in the thigh and the legs sometime off and on. The patient denies missing any dialysis treatment recently, although he has still been gaining too much weight in between the treatments. Additional Remarks Dialysis planned for today. Complains of lower extremity cramping. On heparin gtt denies chest pain currently. Denies SOB (Racquel Hooks) Review of Systems Respiratory Respiratory Remarks Denies SOB (Racquel Hooks) Cardiovascular Cardiac Remarks Denies cp (Racquel Hooks) Gastrointestinal GI Remarks denies abdominal pain (Racquel Hooks) Musculoskeletal MS Remarks bilateral leg cramping (Racquel Hooks) Objective Data Data 08/02/17 08/03/17 19:00 07:00 Intake Total 111 ml Balance 111 ml IV Total 111 ml Vital Signs Date Time Temp Pulse Resp B/P (MAP) Pulse Ox O2 Delivery O2 Flow Rate FiO2 08/02/17 08:52 95 Nasal Cannula 5.00 08/02/17 06:00 70 08/02/17 05:27 91 Simple Mask 6.00 86 08/02/17 04:00 71 08/02/17 04:00 98.4 71 19 146/67 (93) 92 08/02/17 02:00 60 08/02/17 00:35 91 Nasal Cannula 3.00 08/02/17 00:00 98.0 64 24 139/74 (95) 95 08/02/17 00:00 64 08/01/17 23:28 96 Nasal Cannula 2.00 08/01/17 22:00 60 08/01/17 20:00 99.3 61 20 135/74 (94) 94 08/01/17 20:00 61 08/01/17 20:00 94 Nasal Cannula 2.00 08/01/17 18:50 08/01/17 18:00 62 25 99/56 (70) 95 Nasal Cannula 2.00 08/01/17 17:00 62 21 114/56 (75) 95 Room Air 08/01/17 16:10 61 18 120/61 (80) 97 Room Air 08/01/17 14:57 97.8 62 17 125/78 (94) 95 (Racquel Hooks) -: 08/02/17 0236 08/02/17 0236 Imaging Last Impressions Chest X-Ray 08/01/17 1507 Signed Impressions: Service Date/Time: Tuesday, August 01, 2017 15:34 - CONCLUSION: Compensated cardiomegaly otherwise negative . Jason Craig MD FACR (Racquel Hooks) Physical Exam General Appearance: No Acute Distress, Obese (Racquel Hooks) Eyes Eye Exam: Pupils Equal (Racquel Hooks) Throat Throat Exam: Oral Mucosa [place] & Moist (Racquel Hooks) Pulmonary Resp Exam: Breath Sounds Equal, No Distress, Decreased Bases (Racquel Hooks) Cardiology CV Exam: Regular (Racquel Hooks) Gastrointestinal/Abdomen GI Exam: Soft, Non-Tender, Bowel Sounds Present (Racquel Hooks) Genitourinary Exam: Flank Non-Tender (Racquel Hooks) Extremeties Extremities Exam: Trace Edema (Racquel Hooks) Neurologic Neuro Exam: Alert, Awake, Oriented (Racquel Hooks) Psychiatric Psych Exam: Appropriate Responses (Racquel Hooks) Assessment/Plan Discussed Condition With: Patient Assessment Summary: End Stage Renal Disease Problem List: (1) ESRD on hemodialysis ICD Codes: N18.6 - End stage renal disease; Z99.2 - Dependence on renal dialysis Plan: Plan for dialysis today Complaining of lower extremity cramping gabapentin TID Potassium WNL. Denies any chest pain. On heparin gtt. (2) Diabetes mellitus ICD Codes: E11.9 - Diabetes mellitus Status: Chronic Plan: Maintain BS 140 mg/dl to 180 mg/dl (3) Non-ST elevation MS (NSTEMI) ICD Codes: I21.4 - Non-ST elevation (NSTEMI) myocardial infarction Status: Acute Plan: On heparin gtt. No chest pain currently Plans for heart cath (4) HTN (hypertension) ICD Codes: I10 - Essential (primary) hypertension Status: Chronic Plan: Well controlled Continue current regimen (Racquel Hooks) Problem List: (1) ESRD on hemodialysis ICD Codes: N18.6 - End stage renal disease; Z99.2 - Dependence on renal dialysis Plan: Plan for dialysis today Complaining of lower extremity cramping gabapentin TID Potassium WNL. Denies any chest pain. On heparin gtt. Patient seen and examined, agree with above. Cardiology follow up noted. Has leg and thigh pain and occ. cramps, I will start Mirapex. (2) Diabetes mellitus ICD Codes: E11.9 - Diabetes mellitus Status: Chronic Plan: Maintain BS 140 mg/dl to 180 mg/dl (3) Non-ST elevation MS (NSTEMI) ICD Codes: I21.4 - Non-ST elevation (NSTEMI) myocardial infarction Status: Acute Plan: On heparin gtt. No chest pain currently Plans for heart cath (4) HTN (hypertension) ICD Codes: I10 - Essential (primary) hypertension Status: Chronic Plan: Well controlled Continue current regimen (Jeana Corona MD) Problem Qualifiers (1) Diabetes mellitus: Racquel Hooks Aug 02, 2017 10:04 Jeana Corona MD Aug 02, 2017 14:25
[2017-08-02] MEDS: GABAPENTIN 100 MG CAP PO SCH (11:16)
[2017-08-02] MEDS: GELATIN 12 MM/7 MM FOAM TOP PRN (13:33)
[2017-08-02] MEDS: EPOETIN ALFA 10,000 UNITS/ML VIAL IV PUSH PRN (13:34)
--- NOTE | 2017-08-02 15:54 | EKG ---
Date Performed: 08/01/2017 Time Performed: 15:14:52 PTAGE: 57 years EKG: SINUS BRADYCARDIA WITH FIRST DEGREE AV BLOCK LEFT VENTRICULAR HYPERTROPHY AND ST-T CHANGE I NFERIOR MYOCARDIAL INFARCTION ABNORMAL ECG Since the prior tracing, there has been no significant luca nge PREVIOUS TRACING : 04/13/2017 07.27 DOCTOR: Robbin Guillen Interpretating Date/Time 08/02/2017 15:52:30
--- NOTE | 2017-08-02 15:55 | EKG ---
Date Performed: 08/02/2017 Time Performed: 05:47:26 PTAGE: 57 years EKG: Sinus rhythm . Left axis deviation IV conduction defect Possible left ventricular hypertrophy Anterolateral ST-T c hanges may be due to hypertrophy and/or ischemia Low QRS voltages in precordial leads Abnormal ECG Si nce the prior tracing, there has been no significant change PREVIOUS TRACING : 08/01/2017 15.14 DOCTOR: Robbin Guillen Interpretating Date/Time 08/02/2017 15:54:58
[2017-08-02] MEDS ORDERED: WARFARIN SOD 5 MG TAB PO SCH (16:00)
[2017-08-02] MEDS: oxyCODONE/ACETAMINOPHEN 5 MG/325 MG TAB PO SCH ×2 (16:04→22:51)
--- NOTE | 2017-08-02 16:32 | PD.CARD.PN ---
Subjective Subjective Remarks Patient was seen this morning, late entry No current CP/SOB Objective Medications Current Medications Medications (Trade) Dose Ordered Sig/Taj Route Start Time Stop Time Status Last Admin (Pepcid Inj) 10 mg Q12HR IV PUSH 08/01/17 21:00 08/02/17 09:05 (Duoneb Neb) 1 ampule Q4HR NEB INH 08/01/17 20:00 08/02/17 11:21 (Atrovent Neb) 0.5 mg Q2HR NEB PRN INH 08/01/17 16:45 Miscellaneous Information 1 Q361D XX 08/01/17 16:45 (Chlorhexidine 2% Cloth) 3 pack Taper DAILY@04 TOP 08/02/17 04:00 07/29/18 03:59 08/02/17 04:00 (Chlorhexidine 2% Cloth) 3 pack UNSCH PRN TOP 08/01/17 16:45 (Janett-Colace) 1 tab BID PO 08/01/17 21:00 08/02/17 09:07 (Milk Of Magnesia Liq) 30 ml Q12H PRN PO 08/01/17 16:45 (Senokot) 17.2 mg Q12H PRN PO 08/01/17 16:45 (Dulcolax Supp) 10 mg DAILY PRN RECTAL 08/01/17 16:45 (Lactulose Liq) 30 ml DAILY PRN PO 08/01/17 16:45 (Cordarone) 200 mg BID PO 08/01/17 21:00 08/02/17 09:03 (Apresoline) 50 mg TID PO 08/01/17 18:00 08/02/17 12:33 (Imdur) 60 mg DAILY@07 PO 08/02/17 07:00 08/02/17 05:52 (Nitrostat Sl) 0.4 mg UNSCH PRN SL 08/01/17 16:45 08/02/17 05:36 (D50w (Vial) Inj) 50 ml UNSCH PRN IV PUSH 08/01/17 17:00 (Glucagon Inj) 1 mg UNSCH PRN OTHER 08/01/17 17:00 (NovoLIN R SUPPLEMENTAL SCALE) 1 Q6H SQ 08/01/17 18:00 08/02/17 12:00 (Coreg) 6.25 mg Q12HR PO 08/01/17 17:30 08/02/17 09:01 Sodium Chloride 1,000 ml @ 0 mls/hr Q0M PRN OTHER 08/01/17 18:07 (Heparin Inj) 8,000 units UNSCH PRN IV FLUSH 08/01/17 18:15 Sodium Chloride 1,000 ml @ 200 mls/hr Q5H PRN IV 08/01/17 18:07 Sodium Chloride 1,000 ml @ 0 mls/hr Q0M PRN OTHER 08/01/17 18:07 (Mannitol Inj) 12.5 gm UNSCH PRN IV 08/01/17 18:15 Albumin Human 100 ml @ 60 mls/hr UNSCH PRN IV 08/01/17 18:15 (NS Flush) 5 ml UNSCH PRN IV FLUSH 08/01/17 18:15 (Heparin Inj) UNSCH PRN .XX 08/01/17 18:15 (Gentamicin Inj) 20 mg UNSCH PRN OTHER 08/01/17 18:15 (Zofran Inj) 4 mg UNSCH PRN IV PUSH 08/01/17 18:15 (Tylenol) 650 mg UNSCH PRN PO 08/01/17 18:15 08/02/17 09:03 (Benadryl) 25 mg UNSCH PRN PO 08/01/17 18:15 (Nitrostat Sl) 0.4 mg UNSCH PRN SL 08/01/17 18:15 (Catapres) 0.1 mg UNSCH PRN PO 08/01/17 18:15 (Epogen Inj) 4,000 units UNSCH PRN IV PUSH 08/01/17 18:15 08/02/17 13:34 (Gelfoam 12 Mm/7 Mm Top) 1 foam UNSCH PRN TOP 08/01/17 18:15 08/02/17 13:33 (Aspirin Chew) 81 mg DAILY PO 08/02/17 09:00 08/02/17 09:07 (Brilinta) 90 mg BID PO 08/01/17 21:00 08/02/17 09:07 (Nitroglycerin 2% Oint) 1 inch Q6HR TOPICAL 08/02/17 00:00 08/02/17 12:33 (Neurontin) 100 mg DAILY PO 08/02/17 11:15 08/02/17 11:16 Heparin Sodium/ Dextrose 250 ml @ 10 mls/hr TITRATE PRN IV 08/02/17 11:30 (Mirapex) 0.25 mg BID PO 08/02/17 21:00 (Percocet 5-325 Mg) 1 tab Q6H PO 08/02/17 16:00 08/02/17 16:04 Vital Signs / I&O Vital Signs Date Time Temp Pulse Resp B/P (MAP) Pulse Ox O2 Delivery O2 Flow Rate FiO2 08/02/17 14:00 72 08/02/17 12:00 99.6 74 32 120/66 (84) 94 08/02/17 12:00 74 08/02/17 10:03 23 08/02/17 10:00 71 08/02/17 08:52 95 Nasal Cannula 5.00 08/02/17 08:00 100.6 67 20 121/64 (83) 99 08/02/17 08:00 67 08/02/17 07:00 95 Simple Mask 6.00 86 08/02/17 06:00 70 08/02/17 05:27 91 Simple Mask 6.00 86 08/02/17 04:00 71 08/02/17 04:00 98.4 71 19 146/67 (93) 92 08/02/17 02:00 60 08/02/17 00:35 91 Nasal Cannula 3.00 08/02/17 00:00 98.0 64 24 139/74 (95) 95 08/02/17 00:00 64 08/01/17 23:28 96 Nasal Cannula 2.00 08/01/17 22:00 60 08/01/17 20:00 99.3 61 20 135/74 (94) 94 08/01/17 20:00 61 08/01/17 20:00 94 Nasal Cannula 2.00 08/01/17 18:50 08/01/17 18:00 62 25 99/56 (70) 95 Nasal Cannula 2.00 08/01/17 17:00 62 21 114/56 (75) 95 Room Air I/O 08/01/17 08/01/17 08/01/17 08/02/17 08/02/17 08/02/17 07:00 15:00 23:00 07:00 15:00 23:00 Intake Total 240 ml 111 ml Output Total 0 ml 3000 ml Balance 240 ml 111 ml -3000 ml Intake Oral 240 ml IV Total 111 ml Output Urine Total 0 ml Hemodialysis 3000 ml # Bowel Movements 0 Physical Exam GENERAL: NAD, AAOx3 SKIN: Warm and dry. HEAD: Atraumatic. Normocephalic. EYES: Pupils equal and round. No scleral icterus. No injection or drainage. ENT: No nasal bleeding or discharge. Mucous membranes pink and moist. NECK: Trachea midline. No JVD. CARDIOVASCULAR: Regular rate and rhythm. RESPIRATORY: No accessory muscle use. Clear to auscultation. Breath sounds equal bilaterally. GASTROINTESTINAL: Abdomen soft, non-tender, nondistended. Hepatic and splenic margins not palpable. MUSCULOSKELETAL: Extremities without clubbing, cyanosis, or edema. No obvious deformities. NEUROLOGICAL: Awake and alert. No obvious cranial nerve deficits. Motor grossly within normal limits. Five out of 5 muscle strength in the arms and legs. Normal speech. PSYCHIATRIC: Appropriate mood and affect; insight and judgment normal. Laboratory Laboratory Tests Test 08/01/17 19:00 08/01/17 20:47 08/01/17 21:30 08/02/17 02:36 Nasal Screen MRSA (PCR) MRSA NOT DETECTED Platelet Function P2Y12 React Units 214 PRU Troponin I 13.40 NG/ML 11.50 NG/ML White Blood Count 7.6 TH/MM3 Red Blood Count 3.40 MIL/MM3 Hemoglobin 10.8 GM/DL Hematocrit 32.7 % Mean Corpuscular Volume 96.0 FL Mean Corpuscular Hemoglobin 31.8 PG Mean Corpuscular Hemoglobin Concent 33.1 % Red Cell Distribution Width 16.3 % Platelet Count 124 TH/MM3 Mean Platelet Volume 9.2 FL Neutrophils (%) (Auto) 75.7 % Lymphocytes (%) (Auto) 13.4 % Monocytes (%) (Auto) 7.8 % Eosinophils (%) (Auto) 2.0 % Basophils (%) (Auto) 1.1 % Neutrophils # (Auto) 5.7 TH/MM3 Lymphocytes # (Auto) 1.0 TH/MM3 Monocytes # (Auto) 0.6 TH/MM3 Eosinophils # (Auto) 0.2 TH/MM3 Basophils # (Auto) 0.1 TH/MM3 CBC Comment DIFF FINAL Differential Comment Prothrombin Time 24.8 SEC Prothromb Time International Ratio 2.5 RATIO Activated Partial Thromboplast Time 39.5 SEC Blood Urea Nitrogen 87 MG/DL Creatinine 11.38 MG/DL Random Glucose 149 MG/DL Total Protein 6.4 GM/DL Albumin 3.0 GM/DL Calcium Level 8.8 MG/DL Alkaline Phosphatase 101 U/L Aspartate Amino Transf (AST/SGOT) 43 U/L Alanine Aminotransferase (ALT/SGPT) 47 U/L Total Bilirubin 0.6 MG/DL Sodium Level 142 MEQ/L Potassium Level 4.4 MEQ/L Chloride Level 106 MEQ/L Carbon Dioxide Level 24.9 MEQ/L Anion Gap 11 MEQ/L Estimat Glomerular Filtration Rate 5 ML/MIN Test 08/02/17 10:36 Activated Partial Thromboplast Time 41.6 SEC Troponin I 5.55 NG/ML Assessment and Plan Problem List: (1) Non-ST elevation [place] (NSTEMI) ICD Codes: I21.4 - Non-ST elevation (NSTEMI) myocardial infarction Status: Acute (2) Multi-vessel coronary artery stenosis ICD Codes: I25.10 - Atherosclerotic heart disease of [place] coronary artery without angina pectoris (3) ESRD on hemodialysis ICD Codes: N18.6 - End stage renal disease; Z99.2 - Dependence on renal dialysis (4) HTN (hypertension) ICD Codes: I10 - Essential (primary) hypertension Status: Chronic (5) Paroxysmal atrial fibrillation ICD Codes: I48.0 - Paroxysmal atrial fibrillation Status: Acute (6) Diabetes mellitus ICD Codes: E11.9 - Diabetes mellitus Status: Chronic (7) Ischemic cardiomyopathy ICD Codes: I25.5 - Ischemic cardiomyopathy Status: Chronic (8) Anemia ICD Codes: D64.9 - Anemia, unspecified Status: Chronic (9) Hyperlipidemia ICD Codes: E78.5 - Hyperlipidemia, unspecified Status: Chronic Assessment and Plan 1) NSTEMI Con't ASA/Brilinta/Heparin drip Stop coumadin Possible catheterization tomorrow vs. depending on INR 2) CAD with history of complex PCI Plan for repeat catheterization as above 3) Afib Will plan to hold Coumadin for planned procedure 4) Repeat echocardiogram Problem Qualifiers (1) Diabetes mellitus: José Antonio May DO Aug 02, 2017 16:32
[2017-08-02] MEDS: ONDANSETRON HCL 4 MG/2 ML VIAL IV PUSH PRN (17:31)
[2017-08-02] MEDS: HEPARIN-D5W 25,000 U/250 ML 250 ML IV PRN (17:32)
[2017-08-02] MEDS: PRAMIPEXOLE DIHYDROCHLORIDE 0.25 MG TAB PO SCH (22:51)
[2017-08-03] VITALS (19 sets, daily range): BP systolic 87–127; BP diastolic 50–69; PULSE 59–76; RESP 12–29; TEMP 97.8–99.5; O2SAT 94–100
[2017-08-03] MEDS: RESP: ALBUTEROL 2.5 MG/IPRATROPIUM 0.5 MG NEB (SCH) INH ×7 (03:46→21:07)
[2017-08-03 04:24] LABS: AUTOMATED NEUTROPHIL # 7.9 TH/MM3 (1.8-7.7); BASOPHIL # 0.1 TH/MM3 (0-0.2); BASOPHIL % 0.8 % (0.0-2.0); EOSINOPHIL % 0.1 % (0.0-4.0); HEMATOCRIT 30.4 % (39.0-51.0); HEMOGLOBIN 10.1 GM/DL (13.0-17.0); LYMPH % 8.2 % (9.0-44.0); LYMPHOCYTE # 0.8 TH/MM3 (1.0-4.8); MEAN CELL VOLUME 95.8 FL (80.0-100.0); MEAN CORPUSCULAR HEMOGLOBIN 31.8 PG (27.0-34.0); MEAN CORPUSCULAR HGB CONC 33.2 % (32.0-36.0); MEAN PLATELET VOLUME 9.6 FL (7.0-11.0); MONO % 9.2 % (0.0-8.0); MONOCYTE # 0.9 TH/MM3 (0-0.9); NEUT % 81.7 % (16.0-70.0); PLATELET COUNT 123 TH/MM3 (150-450); RED BLOOD COUNT 3.17 MIL/MM3 (4.50-5.90); RED CELL DISTRIBUTION WIDTH 15.7 % (11.6-17.2); WHITE BLOOD COUNT 9.7 TH/MM3 (4.0-11.0)
[2017-08-03 04:28] LABS: INTERNATIONAL NORMALIZED RATIO 3.1 RATIO; PROTHROMBIN TIME - PATIENT 30.9 SEC (9.8-11.6)
[2017-08-03 05:14] LABS: BICARBONATE 28.7 MEQ/L (21.0-32.0); CALCIUM 8.4 MG/DL (8.5-10.1)
[2017-08-03 05:18] LABS: CREATININE 10.14 MG/DL (0.60-1.30)
[2017-08-03] MEDS: INSULIN NovoLIN REGULAR SUPPLEMENTAL SCALE SQ SCH ×5 (06:00→20:00)
[2017-08-03] MEDS: ISOSORBIDE MONONITRATE 60 MG TAB PO SCH (06:02)
[2017-08-03] MEDS: NITROGLYCERIN 2% OINT 1 GM PACKET TOPICAL SCH ×4 (06:02→21:09)
[2017-08-03] MEDS: oxyCODONE/ACETAMINOPHEN 5 MG/325 MG TAB PO SCH ×2 (06:03→10:07)
[2017-08-03] MEDS ORDERED: DEXTROSE 50% IN WATER 50 ML VIAL(D50) IV PUSH PRN (08:00)
[2017-08-03] MEDS ORDERED: GLUCAGON 1 MG/ML VIAL OTHER PRN (08:00)
--- NOTE | 2017-08-03 08:02 | HHI.CCPN ---
Subjective Remarks/Hospital Course Patient is a 57-year-old male with past medical history of coronary artery disease, diabetes mellitus, hypertension, end-stage renal disease on hemodialysis Tuesday, , Tuesday. The patient presented to [facility] ED with midsternal chest pain described as sharp, throbbing pain , 5/10 on the pain scale. The pain is localized. The patient also reports shortness of breath associated with his chest discomfort. He denies any nausea , vomiting or abdominal pain. In addition he denies any orthopnea, PND or edema of lower extremities. His laboratory data showed troponin of 13.9 with a total CK 358 and MB percentage 4.1. In addition his creatinine level is 11.0 with a potassium 4.7. A chest x-ray in the ED showed compensated cardiomegaly otherwise negative. EKG showed sinus bradycardia with first degree AV block, rate of 59 beats per minute, findings similar to prior EKG from March. He is on Coumadin and Plavix at home and his INR is therapeutic at 2.6. The patient was last hospitalized on April 12, 2017 for NSTEMI as well and at that time he underwent cardiac catheterization by Dr. May with multiple drug-eluting stents placed. His cath showed moderate to severe coronary artery disease with EF of 20%. He was evaluated by cardiothoracic surgery at that time for evaluation of CABG however, he was turned down due to no target vessels. The patient denies any fever, chills, cough or any constitutional symptoms. 08/02 No events overnight. Patient is lying in bed in NAD. Started on Heparin drip. 08/03 No events overnight. s/p HD yesterday with removal 3L. On Heparin drip. T; 101.7 last night. Objective Vital Signs Date Time Temp Pulse Resp B/P (MAP) Pulse Ox O2 Delivery O2 Flow Rate FiO2 08/03/17 06:00 60 08/03/17 04:00 98.9 16 122/61 (81) 100 08/02/17 21:23 Nasal Cannula 5.00 08/02/17 19:00 86 Intake and Output 08/03/17 08/03/17 08/04/17 08:00 16:00 00:00 Intake Total 60 ml Output Total 450 ml Balance -390 ml Result Diagram: 08/03/17 0335 08/03/17 0335 Other Results Laboratory Tests Test 08/02/17 10:36 08/02/17 16:29 08/03/17 03:35 Activated Partial Thromboplast Time 41.6 SEC 42.9 SEC 44.1 SEC Troponin I 5.55 NG/ML White Blood Count 9.7 TH/MM3 Red Blood Count 3.17 MIL/MM3 Hemoglobin 10.1 GM/DL Hematocrit 30.4 % Mean Corpuscular Volume 95.8 FL Mean Corpuscular Hemoglobin 31.8 PG Mean Corpuscular Hemoglobin Concent 33.2 % Red Cell Distribution Width 15.7 % Platelet Count 123 TH/MM3 Mean Platelet Volume 9.6 FL Neutrophils (%) (Auto) 81.7 % Lymphocytes (%) (Auto) 8.2 % Monocytes (%) (Auto) 9.2 % Eosinophils (%) (Auto) 0.1 % Basophils (%) (Auto) 0.8 % Neutrophils # (Auto) 7.9 TH/MM3 Lymphocytes # (Auto) 0.8 TH/MM3 Monocytes # (Auto) 0.9 TH/MM3 Eosinophils # (Auto) 0.0 TH/MM3 Basophils # (Auto) 0.1 TH/MM3 CBC Comment DIFF FINAL Differential Comment Prothrombin Time 30.9 SEC Prothromb Time International Ratio 3.1 RATIO Blood Urea Nitrogen 73 MG/DL Creatinine 10.14 MG/DL Random Glucose 235 MG/DL Calcium Level 8.4 MG/DL Sodium Level 138 MEQ/L Potassium Level 4.8 MEQ/L Chloride Level 98 MEQ/L Carbon Dioxide Level 28.7 MEQ/L Anion Gap 11 MEQ/L Estimat Glomerular Filtration Rate 5 ML/MIN Imaging Last Impressions Chest X-Ray 08/01/17 1507 Signed Impressions: Service Date/Time: Tuesday, August 01, 2017 15:34 - CONCLUSION: Compensated cardiomegaly otherwise negative . Jason Craig MD FACR Objective Remarks GENERAL: Patient is lying in bed in NAD SKIN: Warm and dry. HEAD: Normocephalic. EYES: No scleral icterus. No injection or drainage. NECK: Supple, trachea midline. No JVD or lymphadenopathy. CARDIOVASCULAR: Regular rate and rhythm without murmurs, gallops, or rubs. RESPIRATORY: Breath sounds equal bilaterally. No accessory muscle use. GASTROINTESTINAL: Abdomen soft, non-tender, nondistended. MUSCULOSKELETAL: No cyanosis, or edema. Neuro: Awake and alert A/P Assessment and Plan 1. Resp Insuff 2. NSTEMI 3. ESRD 4. Coagulopathy 5. Diabetes mellitus. 6. Hypertension. 7. Hyperlipidemia. 7. Obesity. Plan Neuro: Monitor neuro status. Awake and alert Pulm: Continue with oxygen maintain sats above 92%. Bronchodilators CV: Monitor HR and BP and maintain MAP >65mmHg. Monitor cardiac enzymes with troponins, for 2-D echo today Cards is following- Dr. May.on Heparin drip per cards,- INR 3.1 today s/p cardiac catheterization in March 2017 with multiple drug eluding stents placed. The patient was turned down by CT surgery for CABG. Might need repeat Cath . On Amiodarone 200 mg b.i.d., Imdur 60 mg daily, Brilinta, ASA, NTG top 1"Q6 : Monitor renal function and avoid nephrotoxins. Renal- Dr. Corona On HD T, TH,S s/p HD yesterday with removal 3L GI: p.o. heart healthy diet and Pepcid 20 mg q.12 for GI prophylaxis. ID: Monitor for signs of infections( fever and WBC). Follow up on BC . CXR 08/01: No acute disease Heme: Monitor CBC and coags- on Heparin drip Endo: SSI with Accu-Cheks for glycemic control. GI prophylaxis with Pepcid and DVT prophylaxis with SCDs, heparin drip Level 3 Nona Jones MD Aug 03, 2017 08:02
[2017-08-03] MEDS: DOCUSATE SODIUM 50 MG/SENNA 8.6 MG TAB PO SCH ×2 (09:00→21:08)
[2017-08-03] MEDS: CARVEDILOL 6.25 MG TAB PO SCH ×2 (10:07→21:00)
[2017-08-03] MEDS: TICAGRELOR 90 MG TAB PO SCH ×2 (10:08→21:08)
[2017-08-03] MEDS: GABAPENTIN 100 MG CAP PO SCH (10:08)
[2017-08-03] MEDS: ASPIRIN 81 MG CHEW TAB PO SCH (10:08)
[2017-08-03] MEDS: PRAMIPEXOLE DIHYDROCHLORIDE 0.25 MG TAB PO SCH ×2 (10:08→21:08)
[2017-08-03] MEDS: AMIODARONE 200 MG TAB PO SCH ×2 (10:08→21:00)
[2017-08-03] MEDS: hydrALAZINE HCL 50 MG TAB PO SCH ×2 (10:08→12:11)
[2017-08-03] MEDS: FAMOTIDINE 20 MG/2 ML VIAL IV PUSH SCH ×2 (10:09→21:08)
--- NOTE | 2017-08-03 11:15 | HHI.NPPN ---
Subjective General Problems: Hypertension Renal Failure: End Stage Renal Disease History of Present Illness This is a 57-year-old man known to me from before with past medical history of hypertension, ischemic heart disease, end-stage renal disease on hemodialysis, chronic anemia, diabetes mellitus. He came to the hospital with complaint of chest pain and mild shortness of breath. I was called to see the patient because of management of dialysis. The patient has been on hemodialysis three times per week - Tuesday, and Tuesday, and according to the patient he has not been missing any treatment. He went for his dialysis on Tuesday. The patient's chest pain started off and on but according to him it was not very severe and he went to get gas in his car with his friend and at the gas station he collapsed and fell down and lost of consciousness for almost a minute. The patient was leaning against his car when he started feeling dizzy and he does not remember exactly what happened. The patient's friend called for help and the patient woke up. He was admitted in March and at that time he had a cardiac catheterization by Dr. May and it was found that he has severe ischemic heart disease and he was seen by Cardiac Surgery and it is thought that he is not a candidate for surgery and he underwent stenting done on April 22. The patient has some pain in his thigh area and then he was on one of the statins and it was stopped. It was initially reduced in the dose and then it was stopped by his primary physician with the thought of improving the pain, but he has some kind of cramping in the thigh and the legs sometime off and on. The patient denies missing any dialysis treatment recently, although he has still been gaining too much weight in between the treatments. Additional Remarks Dialysis yesterday tolerated well. Mild SOB. Denies CP. On heparin drip. (Racquel Hooks) Review of Systems Respiratory Lungs: SOB Respiratory Remarks Mild SOB (Racquel Hooks) Cardiovascular Cardiac Remarks Denies cp (Racquel Hooks) Gastrointestinal GI Remarks denies abdominal pain (Racquel Hooks) Objective Data Data Vital Signs Date Time Temp Pulse Resp B/P (MAP) Pulse Ox O2 Delivery O2 Flow Rate FiO2 08/03/17 09:43 99 Nasal Cannula 3.00 97 08/03/17 08:00 98.3 60 22 97/57 (70) 100 08/03/17 08:00 63 08/03/17 07:00 94 Nasal Cannula 5.00 08/03/17 06:00 60 08/03/17 04:00 60 08/03/17 04:00 98.9 60 16 122/61 (81) 100 08/03/17 02:00 63 08/03/17 00:00 99.5 76 22 101/59 (73) 96 08/03/17 00:00 76 08/02/17 22:00 75 08/02/17 21:23 95 Nasal Cannula 5.00 08/02/17 20:00 78 08/02/17 20:00 101.7 78 29 92/51 (65) 94 08/02/17 19:00 94 Nasal Cannula 5.00 86 08/02/17 18:00 85 08/02/17 17:07 31 08/02/17 16:00 99.3 73 26 141/71 (94) 95 08/02/17 16:00 73 08/02/17 14:00 72 08/02/17 12:00 99.6 74 32 120/66 (84) 94 08/02/17 12:00 74 (Racquel Hooks) -: 08/03/17 0335 08/03/17 0335 Microbiology 08/03/17 Aerobic Blood Culture, Received Pending 08/03/17 Anaerobic Blood Culture, Received Pending (Racquel Hooks) Physical Exam General Appearance: No Acute Distress, Obese (Racquel Hooks) Eyes Eye Exam: Pupils Equal (Racquel Hooks) Throat Throat Exam: Oral Mucosa [place] & Moist (Racquel Hooks) Pulmonary Resp Exam: Breath Sounds Equal, No Distress, Decreased Bases (Racquel Hooks) Cardiology CV Exam: Regular (Racquel Hooks) Gastrointestinal/Abdomen GI Exam: Soft, Non-Tender, Bowel Sounds Present (Racquel Hooks) Genitourinary Exam: Flank Non-Tender (Racquel Hooks) Extremeties Extremities Exam: Trace Edema (Racquel Hooks) Neurologic Neuro Exam: Alert, Awake, Oriented (Racquel Hooks) Psychiatric Psych Exam: Appropriate Responses (Racquel Hooks) Assessment/Plan Discussed Condition With: Patient Assessment Summary: End Stage Renal Disease Problem List: (1) ESRD on hemodialysis ICD Codes: N18.6 - End stage renal disease; Z99.2 - Dependence on renal dialysis Plan: Dialysis yesterday 3 liters removed Potassium WNL. Denies any chest pain. On heparin gtt. Leg cramps have improved with the addition of mirapex Dialysis scheduled for tomorrow Possible heart cath tomorrow (2) Diabetes mellitus ICD Codes: E11.9 - Diabetes mellitus Status: Chronic Plan: Maintain BS 140 mg/dl to 180 mg/dl (3) Non-ST elevation [place] (NSTEMI) ICD Codes: I21.4 - Non-ST elevation (NSTEMI) myocardial infarction Status: Acute Plan: On heparin gtt. No chest pain currently Plans for heart cath possible tomorrow (4) HTN (hypertension) ICD Codes: I10 - Essential (primary) hypertension Status: Chronic Plan: Well controlled Continue current regimen (Racquel Hooks) Problem List: (1) ESRD on hemodialysis ICD Codes: N18.6 - End stage renal disease; Z99.2 - Dependence on renal dialysis Plan: Dialysis yesterday 3 liters removed Potassium WNL. Denies any chest pain. On heparin gtt. Leg cramps have improved with the addition of Mirapex. Dialysis scheduled for tomorrow Possible heart cath tomorrow. Patient seen and examined, agree with above. (2) Diabetes mellitus ICD Codes: E11.9 - Diabetes mellitus Status: Chronic Plan: Maintain BS 140 mg/dl to 180 mg/dl (3) Non-ST elevation [place] (NSTEMI) ICD Codes: I21.4 - Non-ST elevation (NSTEMI) myocardial infarction Status: Acute Plan: On heparin gtt. No chest pain currently Plans for heart cath possible tomorrow (4) HTN (hypertension) ICD Codes: I10 - Essential (primary) hypertension Status: Chronic Plan: Well controlled Continue current regimen (Jeana Corona MD) Problem Qualifiers (1) Diabetes mellitus: Racquel Hooks Aug 03, 2017 11:15 Jeana Corona MD Aug 03, 2017 11:39
[2017-08-03] MEDS: ACETAMINOPHEN 325 MG TAB PO PRN (12:19)
[2017-08-03] MEDS: CALCIUM ACETATE 667 MG CAP PO SCH ×2 (13:14→17:11)
[2017-08-03 19:03] LABS: INTERNATIONAL NORMALIZED RATIO 2.8 RATIO; PROTHROMBIN TIME - PATIENT 28.3 SEC (9.8-11.6)
--- NOTE | 2017-08-03 19:48 | ECHRPT ---
Indication: NSTEMI CONCLUSIONS The left ventricular systolic function is moderately reduced with an estimated ejection fraction in the range of 40-45%. Mildly dilated left ventricle. There is global left ventricular dysfunction. Mild mitral valve regurgitation. Trace aortic valve regurgitation. There is trace tricuspid valve regurgitation. BP: 146 / 67 HR: 71 Rhythm: Sinus MEASUREMENTS (Male / Female) Normal Values Technical Quality:Fair 2D ECHO LV Diastolic Diameter PLAX 5.7 cm 4.2 - 5.9 / 3.9 - 5.3 cm LV Systolic Diameter PLAX 4.5 cm IVS Diastolic Thickness 1.0 cm 0.6 - 1.0 / 0.6 - 0.9 cm LVPW Diastolic Thickness 1.0 cm 0.6 - 1.0 / 0.6 - 0.9 cm LV Relative Wall Thickness 0.3 LA Systolic Diameter LX 4.4 cm 3.0 - 4.0 / 2.7 - 3.8 cm LV Ejection Fraction MOD BP 42.5 % >= 55 % LV Cardiac Index MOD BP 2656.4 cm/minm LV Ejection Fraction MOD 4C 41.4 % LV Cardiac Index MOD 4C 2384.7 cm/minm LV Ejection Fraction 4C AL 43.3 % LV Cardiac Index 4C AL 2600.2 cm/minm LV Ejection Fraction MOD 2C 42.3 % LV Cardiac Index MOD 2C 2716.7 cm/minm LV Ejection Fraction 2C AL 42.9 % LV Cardiac Index 2C AL 2843.1 cm/minm M-MODE Aortic Root Diameter MM 3.2 cm AV Cusp Separation MM 2.2 cm DOPPLER AV Peak Velocity 160.0 cm/s AV Peak Gradient 10.2 mmHg LVOT Peak Velocity 82.9 cm/s LVOT Peak Gradient 2.7 mmHg MV Area PHT 3.5 cm Mitral E Point Velocity 128.0 cm/s Mitral A Point Velocity 47.9 cm/s Mitral E to A Ratio 2.7 LV E' Lateral Velocity 3.2 cm/s Mitral E to LV E' Lateral Ratio 40.1 LV E' Septal Velocity 4.2 cm/s Mitral E to LV E' Septal Ratio 30.5 TR Peak Velocity 286.0 cm/s TR Peak Gradient 32.7 mmHg Right Atrial Pressure 10.0 mmHg Pulmonary Artery Systolic Pressu 42.7 mmHg Right Ventricular Systolic Press 42.7 mmHg PV Peak Velocity 99.1 cm/s PV Peak Gradient 3.9 mmHg FINDINGS LEFT VENTRICLE The left ventricular systolic function is moderately reduced with an estimated ejection fraction in the range of 40-45%. Mildly dilated left ventricle. Wall thickness is normal. There is global left ventricular dysfunction. RIGHT VENTRICLE Normal right ventricular size and systolic function. LEFT ATRIUM The left atrial size is mildly dilated. RIGHT ATRIUM The right atrial size is normal. ATRIAL SEPTUM Normal atrial septal thickness without atrial level shunting by limited color doppler interrogation. AORTA The aortic root and proximal ascending aorta are normal in size on limited imaging. MITRAL VALVE Structurally normal mitral valve. Mild mitral valve regurgitation. Mitral annular calcification is present. AORTIC VALVE Trileaflet aortic valve. Aortic valve sclerosis is present. Trace aortic valve regurgitation. TRICUSPID VALVE Structurally normal tricuspid valve. There is trace tricuspid valve regurgitation. The estimated pulmonary arterial pressure is 42.7 mmHg. PULMONARY VALVE Trivial pulmonary valve regurgitation. VESSELS There is less than 50% respiratory change in dimension of the inferior vena cava (abnormal). PERICARDIUM No pericardial effusion. José Antonio May DO (Electronically Signed) Final Date:03 August 2017 19:47
--- NOTE | 2017-08-03 20:05 | PD.CARD.PN ---
Subjective Subjective Remarks Patient was seen this morning, late entry No current CP/SOB Fever overnight Objective Medications Current Medications Medications (Trade) Dose Ordered Sig/Taj Route Start Time Stop Time Status Last Admin (Pepcid Inj) 10 mg Q12HR IV PUSH 08/01/17 21:00 08/03/17 10:09 (Duoneb Neb) 1 ampule Q4HR NEB INH 08/01/17 20:00 08/03/17 16:45 (Atrovent Neb) 0.5 mg Q2HR NEB PRN INH 08/01/17 16:45 Miscellaneous Information 1 Q361D XX 08/01/17 16:45 (Chlorhexidine 2% Cloth) 3 pack Taper DAILY@04 TOP 08/02/17 04:00 07/29/18 03:59 08/02/17 22:52 (Chlorhexidine 2% Cloth) 3 pack UNSCH PRN TOP 08/01/17 16:45 (Janett-Colace) 1 tab BID PO 08/01/17 21:00 08/02/17 22:50 (Milk Of Magnesia Liq) 30 ml Q12H PRN PO 08/01/17 16:45 (Senokot) 17.2 mg Q12H PRN PO 08/01/17 16:45 (Dulcolax Supp) 10 mg DAILY PRN RECTAL 08/01/17 16:45 (Lactulose Liq) 30 ml DAILY PRN PO 08/01/17 16:45 (Cordarone) 200 mg BID PO 08/01/17 21:00 08/03/17 10:08 (Imdur) 60 mg DAILY@07 PO 08/02/17 07:00 08/03/17 06:02 (Nitrostat Sl) 0.4 mg UNSCH PRN SL 08/01/17 16:45 08/02/17 05:36 (Coreg) 6.25 mg Q12HR PO 08/01/17 17:30 08/03/17 10:07 Sodium Chloride 1,000 ml @ 0 mls/hr Q0M PRN OTHER 08/01/17 18:07 (Heparin Inj) 8,000 units UNSCH PRN IV FLUSH 08/01/17 18:15 Sodium Chloride 1,000 ml @ 200 mls/hr Q5H PRN IV 08/01/17 18:07 Sodium Chloride 1,000 ml @ 0 mls/hr Q0M PRN OTHER 08/01/17 18:07 (Mannitol Inj) 12.5 gm UNSCH PRN IV 08/01/17 18:15 Albumin Human 100 ml @ 60 mls/hr UNSCH PRN IV 08/01/17 18:15 (NS Flush) 5 ml UNSCH PRN IV FLUSH 08/01/17 18:15 (Heparin Inj) UNSCH PRN .XX 08/01/17 18:15 (Gentamicin Inj) 20 mg UNSCH PRN OTHER 08/01/17 18:15 (Zofran Inj) 4 mg UNSCH PRN IV PUSH 08/01/17 18:15 08/02/17 17:31 (Tylenol) 650 mg UNSCH PRN PO 08/01/17 18:15 08/03/17 12:19 (Benadryl) 25 mg UNSCH PRN PO 08/01/17 18:15 (Nitrostat Sl) 0.4 mg UNSCH PRN SL 08/01/17 18:15 (Catapres) 0.1 mg UNSCH PRN PO 08/01/17 18:15 (Epogen Inj) 4,000 units UNSCH PRN IV PUSH 08/01/17 18:15 08/02/17 13:34 (Gelfoam 12 Mm/7 Mm Top) 1 foam UNSCH PRN TOP 08/01/17 18:15 08/02/17 13:33 (Aspirin Chew) 81 mg DAILY PO 08/02/17 09:00 08/03/17 10:08 (Brilinta) 90 mg BID PO 08/01/17 21:00 08/03/17 10:08 (Nitroglycerin 2% Oint) 1 inch Q6HR TOPICAL 08/02/17 00:00 08/03/17 17:11 (Neurontin) 100 mg DAILY PO 08/02/17 11:15 08/03/17 10:08 Heparin Sodium/ Dextrose 250 ml @ 10 mls/hr TITRATE PRN IV 08/02/17 11:30 08/02/17 17:32 (Mirapex) 0.25 mg BID PO 08/02/17 21:00 08/03/17 10:08 (D50w (Vial) Inj) 50 ml UNSCH PRN IV PUSH 08/03/17 08:00 (Glucagon Inj) 1 mg UNSCH PRN OTHER 08/03/17 08:00 (NovoLIN R SUPPLEMENTAL SCALE) 1 Q4HR SQ 08/03/17 08:00 08/03/17 15:28 (Phoslo) 2,001 mg TID PO 08/03/17 13:00 08/03/17 17:11 Vital Signs / I&O Vital Signs Date Time Temp Pulse Resp B/P (MAP) Pulse Ox O2 Delivery O2 Flow Rate FiO2 08/03/17 19:00 96 Nasal Cannula 5.00 08/03/17 18:00 66 08/03/17 17:00 63 08/03/17 16:00 97.8 61 16 107/59 (75) 94 08/03/17 16:00 61 08/03/17 15:00 61 17 99/58 (72) 95 08/03/17 15:00 61 08/03/17 14:00 62 22 87/50 (62) 96 08/03/17 14:00 62 08/03/17 13:00 65 08/03/17 13:00 65 16 97/58 (71) 97 08/03/17 12:00 98.7 61 15 100/58 (72) 94 08/03/17 12:00 61 08/03/17 11:00 63 18 106/59 (75) 96 08/03/17 11:00 63 08/03/17 10:00 59 08/03/17 10:00 59 12 93/51 (65) 96 08/03/17 09:43 99 Nasal Cannula 3.00 97 08/03/17 09:00 61 08/03/17 09:00 61 29 94/56 (69) 98 08/03/17 08:00 98.3 60 22 97/57 (70) 100 08/03/17 08:00 63 08/03/17 07:00 94 Nasal Cannula 5.00 08/03/17 06:00 60 08/03/17 04:00 60 08/03/17 04:00 98.9 60 16 122/61 (81) 100 08/03/17 02:00 63 08/03/17 00:00 99.5 76 22 101/59 (73) 96 08/03/17 00:00 76 08/02/17 22:00 75 08/02/17 21:23 95 Nasal Cannula 5.00 I/O 08/02/17 08/02/17 08/02/17 08/03/17 08/03/17 08/03/17 07:00 15:00 23:00 07:00 15:00 23:00 Intake Total 240 ml 111 ml 480 ml 60 ml 500 ml Output Total 0 ml 3125 ml 450 ml 0 ml Balance 240 ml 111 ml -2645 ml -390 ml 500 ml Intake Oral 240 ml 480 ml 60 ml 500 ml IV Total 111 ml Output Urine Total 0 ml 125 ml 450 ml 0 ml Hemodialysis 3000 ml # Bowel Movements 0 0 0 Physical Exam GENERAL: NAD, AAOx3 SKIN: Warm and dry. HEAD: Atraumatic. Normocephalic. EYES: Pupils equal and round. No scleral icterus. No injection or drainage. ENT: No nasal bleeding or discharge. Mucous membranes pink and moist. NECK: Trachea midline. No JVD. CARDIOVASCULAR: Regular rate and rhythm. RESPIRATORY: No accessory muscle use. Clear to auscultation. Breath sounds equal bilaterally. GASTROINTESTINAL: Abdomen soft, non-tender, nondistended. Hepatic and splenic margins not palpable. MUSCULOSKELETAL: Extremities without clubbing, cyanosis, or edema. No obvious deformities. NEUROLOGICAL: Awake and alert. No obvious cranial nerve deficits. Motor grossly within normal limits. Five out of 5 muscle strength in the arms and legs. Normal speech. PSYCHIATRIC: Appropriate mood and affect; insight and judgment normal. Laboratory Laboratory Tests Test 08/03/17 03:35 08/03/17 10:24 08/03/17 14:22 08/03/17 17:58 White Blood Count 9.7 TH/MM3 Red Blood Count 3.17 MIL/MM3 Hemoglobin 10.1 GM/DL Hematocrit 30.4 % Mean Corpuscular Volume 95.8 FL Mean Corpuscular Hemoglobin 31.8 PG Mean Corpuscular Hemoglobin Concent 33.2 % Red Cell Distribution Width 15.7 % Platelet Count 123 TH/MM3 Mean Platelet Volume 9.6 FL Neutrophils (%) (Auto) 81.7 % Lymphocytes (%) (Auto) 8.2 % Monocytes (%) (Auto) 9.2 % Eosinophils (%) (Auto) 0.1 % Basophils (%) (Auto) 0.8 % Neutrophils # (Auto) 7.9 TH/MM3 Lymphocytes # (Auto) 0.8 TH/MM3 Monocytes # (Auto) 0.9 TH/MM3 Eosinophils # (Auto) 0.0 TH/MM3 Basophils # (Auto) 0.1 TH/MM3 CBC Comment DIFF FINAL Differential Comment Prothrombin Time 30.9 SEC 28.3 SEC Prothromb Time International Ratio 3.1 RATIO 2.8 RATIO Activated Partial Thromboplast Time 44.1 SEC 46.2 SEC Blood Urea Nitrogen 73 MG/DL Creatinine 10.14 MG/DL Random Glucose 235 MG/DL Calcium Level 8.4 MG/DL Sodium Level 138 MEQ/L Potassium Level 4.8 MEQ/L Chloride Level 98 MEQ/L Carbon Dioxide Level 28.7 MEQ/L Anion Gap 11 MEQ/L Estimat Glomerular Filtration Rate 5 ML/MIN Troponin I 4.25 NG/ML 3.64 NG/ML Assessment and Plan Problem List: (1) Non-ST elevation [place] (NSTEMI) ICD Codes: I21.4 - Non-ST elevation (NSTEMI) myocardial infarction Status: Acute (2) Multi-vessel coronary artery stenosis ICD Codes: I25.10 - Atherosclerotic heart disease of [place] coronary artery without angina pectoris (3) ESRD on hemodialysis ICD Codes: N18.6 - End stage renal disease; Z99.2 - Dependence on renal dialysis (4) HTN (hypertension) ICD Codes: I10 - Essential (primary) hypertension Status: Chronic (5) Paroxysmal atrial fibrillation ICD Codes: I48.0 - Paroxysmal atrial fibrillation Status: Acute (6) Diabetes mellitus ICD Codes: E11.9 - Diabetes mellitus Status: Chronic (7) Ischemic cardiomyopathy ICD Codes: I25.5 - Ischemic cardiomyopathy Status: Chronic (8) Anemia ICD Codes: D64.9 - Anemia, unspecified Status: Chronic (9) Hyperlipidemia ICD Codes: E78.5 - Hyperlipidemia, unspecified Status: Chronic Assessment and Plan 1) NSTEMI Con't ASA/Brilinta/Heparin drip Stop coumadin Possible catheterization tomorrow vs. Tuesday depending on INR 2) CAD with history of complex PCI Plan for repeat catheterization as above 3) Afib Will plan to hold Coumadin for planned procedure 4) EF 40-45%, decreased from previous 5) Elevated INR Possible due to last dose of Coumadin on 08/01/17, LFT relatively normal Problem Qualifiers (1) Diabetes mellitus: José Antonio May DO Aug 03, 2017 20:05
[2017-08-04] VITALS (29 sets, daily range): BP systolic 96–130; BP diastolic 46–73; PULSE 74–92; RESP 9–30; TEMP 99.2–100.2; O2SAT 84–99
[2017-08-04] MEDS: RESP: ALBUTEROL 2.5 MG/IPRATROPIUM 0.5 MG NEB (SCH) INH ×6 (01:13→21:05)
[2017-08-04] MEDS: CHLORHEXIDINE GLUCONATE 2 % 1 PACK (2 CLOTHS) TOP SCH (04:00)
[2017-08-04] MEDS: INSULIN NovoLIN REGULAR SUPPLEMENTAL SCALE SQ SCH ×6 (04:00→23:49)
[2017-08-04] MEDS: NITROGLYCERIN 2% OINT 1 GM PACKET TOPICAL SCH ×5 (04:55→23:48)
[2017-08-04 04:57] LABS: INTERNATIONAL NORMALIZED RATIO 3.1 RATIO; PROTHROMBIN TIME - PATIENT 31.1 SEC (9.8-11.6)
[2017-08-04] MEDS: ISOSORBIDE MONONITRATE 60 MG TAB PO SCH (04:57)
[2017-08-04 05:12] LABS: AUTOMATED NEUTROPHIL # 8.8 TH/MM3 (1.8-7.7); BASOPHIL % 0.5 % (0.0-2.0); EOSINOPHIL % 0.2 % (0.0-4.0); LYMPH % 3.4 % (9.0-44.0); LYMPHOCYTE # 0.3 TH/MM3 (1.0-4.8); MEAN CELL VOLUME 95.5 FL (80.0-100.0); MEAN CORPUSCULAR HEMOGLOBIN 31.7 PG (27.0-34.0); MEAN CORPUSCULAR HGB CONC 33.2 % (32.0-36.0); MEAN PLATELET VOLUME 9.9 FL (7.0-11.0); MONO % 8.1 % (0.0-8.0); MONOCYTE # 0.8 TH/MM3 (0-0.9); NEUT % 87.8 % (16.0-70.0); PLATELET COUNT 125 TH/MM3 (150-450); RED BLOOD COUNT 3.45 MIL/MM3 (4.50-5.90)
[2017-08-04 05:22] LABS: BICARBONATE 25.8 MEQ/L (21.0-32.0); PHOSPHORUS 8.3 MG/DL (2.5-4.9)
[2017-08-04 05:34] LABS: CREATININE 11.94 MG/DL (0.60-1.30)
[2017-08-04] MEDS: HEPARIN-D5W 25,000 U/250 ML 250 ML IV PRN (05:38)
--- NOTE | 2017-08-04 07:21 | HHI.CCPN ---
Subjective Remarks/Hospital Course Patient is a 57-year-old male with past medical history of coronary artery disease, diabetes mellitus, hypertension, end-stage renal disease on hemodialysis Tuesday, , Tuesday. The patient presented to [facility] ED with midsternal chest pain described as sharp, throbbing pain , 5/10 on the pain scale. The pain is localized. The patient also reports shortness of breath associated with his chest discomfort. He denies any nausea , vomiting or abdominal pain. In addition he denies any orthopnea, PND or edema of lower extremities. His laboratory data showed troponin of 13.9 with a total CK 358 and MB percentage 4.1. In addition his creatinine level is 11.0 with a potassium 4.7. A chest x-ray in the ED showed compensated cardiomegaly otherwise negative. EKG showed sinus bradycardia with first degree AV block, rate of 59 beats per minute, findings similar to prior EKG from March. He is on Coumadin and Plavix at home and his INR is therapeutic at 2.6. The patient was last hospitalized on April 12, 2017 for NSTEMI as well and at that time he underwent cardiac catheterization by Dr. May with multiple drug-eluting stents placed. His cath showed moderate to severe coronary artery disease with EF of 20%. He was evaluated by cardiothoracic surgery at that time for evaluation of CABG however, he was turned down due to no target vessels. The patient denies any fever, chills, cough or any constitutional symptoms. 08/02 No events overnight. Patient is lying in bed in NAD. Started on Heparin drip. 08/03 No events overnight. s/p HD yesterday with removal 3L. On Heparin drip. T; 101.7 last night. 08/04 No events overnight for HD today and possible cardiac cath. On Heparin drip. Patient denies any chest pain on 3L oxygen. Objective Vital Signs Date Time Temp Pulse Resp B/P (MAP) Pulse Ox O2 Delivery O2 Flow Rate FiO2 08/04/17 04:00 99.7 79 17 130/73 (92) 94 08/03/17 21:10 Nasal Cannula 3.00 08/03/17 09:43 97 Result Diagram: 08/04/17 0436 08/04/17 0436 Other Results Laboratory Tests Test 08/03/17 10:24 08/03/17 14:22 08/03/17 17:58 08/04/17 04:36 Troponin I 4.25 NG/ML 3.64 NG/ML Prothrombin Time 28.3 SEC 31.1 SEC Prothromb Time International Ratio 2.8 RATIO 3.1 RATIO Activated Partial Thromboplast Time 46.2 SEC White Blood Count 10.0 TH/MM3 Red Blood Count 3.45 MIL/MM3 Hemoglobin 11.0 GM/DL Hematocrit 33.0 % Mean Corpuscular Volume 95.5 FL Mean Corpuscular Hemoglobin 31.7 PG Mean Corpuscular Hemoglobin Concent 33.2 % Red Cell Distribution Width 16.0 % Platelet Count 125 TH/MM3 Mean Platelet Volume 9.9 FL Neutrophils (%) (Auto) 87.8 % Lymphocytes (%) (Auto) 3.4 % Monocytes (%) (Auto) 8.1 % Eosinophils (%) (Auto) 0.2 % Basophils (%) (Auto) 0.5 % Neutrophils # (Auto) 8.8 TH/MM3 Lymphocytes # (Auto) 0.3 TH/MM3 Monocytes # (Auto) 0.8 TH/MM3 Eosinophils # (Auto) 0.0 TH/MM3 Basophils # (Auto) 0.0 TH/MM3 CBC Comment DIFF FINAL Differential Comment Blood Urea Nitrogen 90 MG/DL Creatinine 11.94 MG/DL Random Glucose 252 MG/DL Calcium Level 9.0 MG/DL Phosphorus Level 8.3 MG/DL Sodium Level 138 MEQ/L Potassium Level 5.5 MEQ/L Chloride Level 98 MEQ/L Carbon Dioxide Level 25.8 MEQ/L Anion Gap 14 MEQ/L Estimat Glomerular Filtration Rate 4 ML/MIN Imaging Last Impressions Chest X-Ray 08/01/17 1507 Signed Impressions: Service Date/Time: Tuesday, August 01, 2017 15:34 - CONCLUSION: Compensated cardiomegaly otherwise negative . Jason Craig MD FACR Objective Remarks GENERAL: Patient is lying in bed in NAD SKIN: Warm and dry. HEAD: Normocephalic. EYES: No scleral icterus. No injection or drainage. NECK: Supple, trachea midline. No JVD or lymphadenopathy. CARDIOVASCULAR: Regular rate and rhythm without murmurs, gallops, or rubs. RESPIRATORY: Breath sounds equal bilaterally. No accessory muscle use. GASTROINTESTINAL: Abdomen soft, non-tender, nondistended. MUSCULOSKELETAL: No cyanosis, or edema. Neuro: Awake and alert A/P Assessment and Plan 1. Resp Insuff 2. NSTEMI 3. ESRD 4. Coagulopathy 5. Diabetes mellitus. 6. Hypertension. 7. Hyperlipidemia. 7. Obesity. Plan Neuro: Monitor neuro status. Awake and alert Pulm: Continue with oxygen maintain sats above 92%. Bronchodilators CV: Monitor HR and BP and maintain MAP >65mmHg. Trop is trending down. Echo showed EF 40-45% Cards is following- Dr. May.on Heparin drip per cards,- INR 3.1 today s/p cardiac catheterization in March 2017 with multiple drug eluding stents placed. The patient was turned down by CT surgery for CABG. For possible repeat cardiac cath today . On Amiodarone 200 mg b.i.d., Imdur 60 mg daily, Brilinta, ASA, NTG top 1"Q6 : Monitor renal function and avoid nephrotoxins. Renal- Dr. Corona On HD T, ,S for HD today GI: p.o. heart healthy diet and Pepcid 20 mg q.12 for GI prophylaxis. ID: Monitor for signs of infections( fever and WBC). Follow up on BC -NGTD CXR 08/01: No acute disease Heme: Monitor CBC and coags- on Heparin drip Endo: SSI with Accu-Cheks for glycemic control. GI prophylaxis with Pepcid and DVT prophylaxis with SCDs, heparin drip Level 2 Nona Jones MD Aug 04, 2017 07:21
[2017-08-04] MEDS: CARVEDILOL 6.25 MG TAB PO SCH ×2 (09:00→19:36)
[2017-08-04] MEDS: CALCIUM ACETATE 667 MG CAP PO SCH ×3 (09:00→17:18)
[2017-08-04] MEDS: EPOETIN ALFA 10,000 UNITS/ML VIAL IV PUSH PRN (09:14)
--- NOTE | 2017-08-04 10:19 | HHI.NPPN ---
Subjective General Problems: Hypertension Renal Failure: End Stage Renal Disease History of Present Illness This is a 57-year-old man known to me from before with past medical history of hypertension, ischemic heart disease, end-stage renal disease on hemodialysis, chronic anemia, diabetes mellitus. He came to the hospital with complaint of chest pain and mild shortness of breath. I was called to see the patient because of management of dialysis. The patient has been on hemodialysis three times per week - Tuesday, and Tuesday, and according to the patient he has not been missing any treatment. He went for his dialysis on Tuesday. The patient's chest pain started off and on but according to him it was not very severe and he went to get gas in his car with his friend and at the gas station he collapsed and fell down and lost of consciousness for almost a minute. The patient was leaning against his car when he started feeling dizzy and he does not remember exactly what happened. The patient's friend called for help and the patient woke up. He was admitted in March and at that time he had a cardiac catheterization by Dr. May and it was found that he has severe ischemic heart disease and he was seen by Cardiac Surgery and it is thought that he is not a candidate for surgery and he underwent stenting done on April 22. The patient has some pain in his thigh area and then he was on one of the statins and it was stopped. It was initially reduced in the dose and then it was stopped by his primary physician with the thought of improving the pain, but he has some kind of cramping in the thigh and the legs sometime off and on. The patient denies missing any dialysis treatment recently, although he has still been gaining too much weight in between the treatments. Additional Remarks Seen during bedside dialysis today. Patient with no complaints or problems reported. Heart cath most likely not today with elevated INR. Heparin gtt continued and CP free (Racquel Hooks) Review of Systems Respiratory Respiratory Remarks Denies SOB (Racquel Hooks) Cardiovascular Cardiac Remarks Denies cp (Racquel Hooks) Gastrointestinal GI Remarks denies abdominal pain (Racquel Hooks) Objective Data Data Vital Signs Date Time Temp Pulse Resp B/P (MAP) Pulse Ox O2 Delivery O2 Flow Rate FiO2 08/04/17 08:12 98 Nasal Cannula 2.00 08/04/17 06:00 84 08/04/17 04:00 99.7 79 17 130/73 (92) 94 08/04/17 04:00 79 08/04/17 02:00 76 08/04/17 00:00 99.2 75 22 102/55 (71) 93 08/04/17 00:00 75 08/03/17 22:00 74 08/03/17 21:10 97 Nasal Cannula 3.00 08/03/17 20:00 68 08/03/17 20:00 98.8 69 16 127/69 (88) 97 08/03/17 19:00 96 Nasal Cannula 5.00 08/03/17 18:00 66 08/03/17 17:00 63 08/03/17 16:00 97.8 61 16 107/59 (75) 94 08/03/17 16:00 61 08/03/17 15:00 61 17 99/58 (72) 95 08/03/17 15:00 61 08/03/17 14:00 62 22 87/50 (62) 96 08/03/17 14:00 62 08/03/17 13:00 65 08/03/17 13:00 65 16 97/58 (71) 97 08/03/17 12:00 98.7 61 15 100/58 (72) 94 08/03/17 12:00 61 08/03/17 11:00 63 18 106/59 (75) 96 08/03/17 11:00 63 (Racquel Hooks) -: 08/04/17 0436 08/04/17 0436 Physical Exam General Appearance: No Acute Distress, Obese (Racquel Hooks) Eyes Eye Exam: Pupils Equal (Racquel Hooks) Throat Throat Exam: Oral Mucosa [place] & Moist (Racquel Hooks) Pulmonary Resp Exam: Breath Sounds Equal, No Distress, Decreased Bases (Racquel Hooks) Cardiology CV Exam: Regular (Racquel Hooks) Gastrointestinal/Abdomen GI Exam: Soft, Non-Tender, Bowel Sounds Present (Racquel Hooks) Genitourinary Exam: Flank Non-Tender (Racquel Hooks) Extremeties Extremities Exam: Trace Edema (Racquel Hooks) Neurologic Neuro Exam: Alert, Awake, Oriented (Racquel Hooks) Psychiatric Psych Exam: Appropriate Responses (Racquel Hooks) Assessment/Plan Discussed Condition With: Patient Assessment Summary: End Stage Renal Disease Electrolyte Assessment: Hyperkalemia Problem List: (1) ESRD on hemodialysis ICD Codes: N18.6 - End stage renal disease; Z99.2 - Dependence on renal dialysis Plan: Potassium elevated at 5.5 today Denies any chest pain. On heparin gtt. Leg cramps have improved with the addition of Mirapex. Patient seen during dialysis tolerating well Heart cath most likely not today with INR still at 3.1 On Heparin gtt and CP free Labs in AM (2) Diabetes mellitus ICD Codes: E11.9 - Diabetes mellitus Status: Chronic Plan: Maintain BS 140 mg/dl to 180 mg/dl (3) Non-ST elevation CO (NSTEMI) ICD Codes: I21.4 - Non-ST elevation (NSTEMI) myocardial infarction Status: Acute Plan: On heparin gtt. No chest pain currently Plans for heart cath possible tomorrow (4) HTN (hypertension) ICD Codes: I10 - Essential (primary) hypertension Status: Chronic Plan: Well controlled Continue current regimen (Racquel Hooks) Problem List: (1) ESRD on hemodialysis ICD Codes: N18.6 - End stage renal disease; Z99.2 - Dependence on renal dialysis Plan: Potassium elevated at 5.5 today Denies any chest pain. On heparin gtt. Leg cramps have improved with the addition of Mirapex. Patient seen during dialysis tolerating well Heart cath most likely not today with INR still at 3.1 On Heparin gtt and CP free Patient seen and examined, agree with above. Has low grade fever, check CXR, Blood culture. Has cough with yellowish sputum. Start on Ceftriaxone and Azithromycin, possibly Bronchitis. (2) Diabetes mellitus ICD Codes: E11.9 - Diabetes mellitus Status: Chronic Plan: Maintain BS 140 mg/dl to 180 mg/dl (3) Non-ST elevation CO (NSTEMI) ICD Codes: I21.4 - Non-ST elevation (NSTEMI) myocardial infarction Status: Acute Plan: On heparin gtt. No chest pain currently Plans for heart cath possible tomorrow (4) HTN (hypertension) ICD Codes: I10 - Essential (primary) hypertension Status: Chronic Plan: Well controlled Continue current regimen (Jeana Corona MD) Problem Qualifiers (1) Diabetes mellitus: Racquel Hooks Aug 04, 2017 10:19 Jeana Corona MD Aug 04, 2017 15:19
[2017-08-04] MEDS ORDERED: PHYTONADIONE 5 MG/SWFI 5 ML ORAL SYR PO ONE (12:00)
--- NOTE | 2017-08-04 12:00 | PD.CARD.PN ---
Subjective Subjective Remarks No current CP/SOB Stable on HD Objective Medications Current Medications Medications (Trade) Dose Ordered Sig/Taj Route Start Time Stop Time Status Last Admin (Pepcid Inj) 10 mg Q12HR IV PUSH 08/01/17 21:00 08/03/17 21:08 (Duoneb Neb) 1 ampule Q4HR NEB INH 08/01/17 20:00 08/04/17 10:59 (Atrovent Neb) 0.5 mg Q2HR NEB PRN INH 08/01/17 16:45 Miscellaneous Information 1 Q361D XX 08/01/17 16:45 (Chlorhexidine 2% Cloth) 3 pack Taper DAILY@04 TOP 08/02/17 04:00 07/29/18 03:59 08/04/17 04:00 (Chlorhexidine 2% Cloth) 3 pack UNSCH PRN TOP 08/01/17 16:45 (Janett-Colace) 1 tab BID PO 08/01/17 21:00 08/03/17 21:08 (Milk Of Magnesia Liq) 30 ml Q12H PRN PO 08/01/17 16:45 (Senokot) 17.2 mg Q12H PRN PO 08/01/17 16:45 (Dulcolax Supp) 10 mg DAILY PRN RECTAL 08/01/17 16:45 (Lactulose Liq) 30 ml DAILY PRN PO 08/01/17 16:45 (Cordarone) 200 mg BID PO 08/01/17 21:00 08/03/17 10:08 (Imdur) 60 mg DAILY@07 PO 08/02/17 07:00 08/04/17 04:57 (Nitrostat Sl) 0.4 mg UNSCH PRN SL 08/01/17 16:45 08/02/17 05:36 (Coreg) 6.25 mg Q12HR PO 08/01/17 17:30 08/03/17 10:07 Sodium Chloride 1,000 ml @ 0 mls/hr Q0M PRN OTHER 08/01/17 18:07 (Heparin Inj) 8,000 units UNSCH PRN IV FLUSH 08/01/17 18:15 Sodium Chloride 1,000 ml @ 200 mls/hr Q5H PRN IV 08/01/17 18:07 Sodium Chloride 1,000 ml @ 0 mls/hr Q0M PRN OTHER 08/01/17 18:07 (Mannitol Inj) 12.5 gm UNSCH PRN IV 08/01/17 18:15 Albumin Human 100 ml @ 60 mls/hr UNSCH PRN IV 08/01/17 18:15 (NS Flush) 5 ml UNSCH PRN IV FLUSH 08/01/17 18:15 (Heparin Inj) UNSCH PRN .XX 08/01/17 18:15 (Gentamicin Inj) 20 mg UNSCH PRN OTHER 08/01/17 18:15 (Zofran Inj) 4 mg UNSCH PRN IV PUSH 08/01/17 18:15 08/02/17 17:31 (Tylenol) 650 mg UNSCH PRN PO 08/01/17 18:15 08/03/17 12:19 (Benadryl) 25 mg UNSCH PRN PO 08/01/17 18:15 (Nitrostat Sl) 0.4 mg UNSCH PRN SL 08/01/17 18:15 (Catapres) 0.1 mg UNSCH PRN PO 08/01/17 18:15 (Epogen Inj) 4,000 units UNSCH PRN IV PUSH 08/01/17 18:15 08/04/17 09:14 (Gelfoam 12 Mm/7 Mm Top) 1 foam UNSCH PRN TOP 08/01/17 18:15 08/02/17 13:33 (Aspirin Chew) 81 mg DAILY PO 08/02/17 09:00 08/03/17 10:08 (Brilinta) 90 mg BID PO 08/01/17 21:00 08/03/17 21:08 (Nitroglycerin 2% Oint) 1 inch Q6HR TOPICAL 08/02/17 00:00 08/04/17 05:38 (Neurontin) 100 mg DAILY PO 08/02/17 11:15 08/03/17 10:08 Heparin Sodium/ Dextrose 250 ml @ 10 mls/hr TITRATE PRN IV 08/02/17 11:30 08/04/17 05:38 (Mirapex) 0.25 mg BID PO 08/02/17 21:00 08/03/17 21:08 (D50w (Vial) Inj) 50 ml UNSCH PRN IV PUSH 08/03/17 08:00 (Glucagon Inj) 1 mg UNSCH PRN OTHER 08/03/17 08:00 (NovoLIN R SUPPLEMENTAL SCALE) 1 Q4HR SQ 08/03/17 08:00 08/04/17 04:00 (Phoslo) 2,001 mg TID PO 08/03/17 13:00 08/03/17 17:11 Vital Signs / I&O Vital Signs Date Time Temp Pulse Resp B/P (MAP) Pulse Ox O2 Delivery O2 Flow Rate FiO2 08/04/17 08:12 98 Nasal Cannula 2.00 08/04/17 06:00 84 08/04/17 04:00 99.7 79 17 130/73 (92) 94 08/04/17 04:00 79 08/04/17 02:00 76 08/04/17 00:00 99.2 75 22 102/55 (71) 93 08/04/17 00:00 75 08/03/17 22:00 74 08/03/17 21:10 97 Nasal Cannula 3.00 08/03/17 20:00 68 08/03/17 20:00 98.8 69 16 127/69 (88) 97 08/03/17 19:00 96 Nasal Cannula 5.00 08/03/17 18:00 66 08/03/17 17:00 63 08/03/17 16:00 97.8 61 16 107/59 (75) 94 08/03/17 16:00 61 08/03/17 15:00 61 17 99/58 (72) 95 08/03/17 15:00 61 08/03/17 14:00 62 22 87/50 (62) 96 08/03/17 14:00 62 08/03/17 13:00 65 08/03/17 13:00 65 16 97/58 (71) 97 08/03/17 12:00 98.7 61 15 100/58 (72) 94 08/03/17 12:00 61 I/O 08/03/17 08/03/17 08/03/17 08/04/17 08/04/17 08/04/17 07:00 15:00 23:00 07:00 15:00 23:00 Intake Total 60 ml 500 ml Output Total 450 ml 0 ml 0 ml 2000 ml Balance -390 ml 500 ml 0 ml -2000 ml Intake Oral 60 ml 500 ml Output Urine Total 450 ml 0 ml 0 ml Hemodialysis 2000 ml # Bowel Movements 0 0 0 Physical Exam GENERAL: NAD, AAOx3 SKIN: Warm and dry. HEAD: Atraumatic. Normocephalic. EYES: Pupils equal and round. No scleral icterus. No injection or drainage. ENT: No nasal bleeding or discharge. Mucous membranes pink and moist. NECK: Trachea midline. No JVD. CARDIOVASCULAR: Regular rate and rhythm. RESPIRATORY: No accessory muscle use. Clear to auscultation. Breath sounds equal bilaterally. GASTROINTESTINAL: Abdomen soft, non-tender, nondistended. Hepatic and splenic margins not palpable. MUSCULOSKELETAL: Extremities without clubbing, cyanosis, or edema. No obvious deformities. NEUROLOGICAL: Awake and alert. No obvious cranial nerve deficits. Motor grossly within normal limits. Five out of 5 muscle strength in the arms and legs. Normal speech. PSYCHIATRIC: Appropriate mood and affect; insight and judgment normal. Laboratory Laboratory Tests Test 08/03/17 14:22 08/03/17 17:58 08/04/17 04:36 08/04/17 08:42 Troponin I 3.64 NG/ML Prothrombin Time 28.3 SEC 31.1 SEC Prothromb Time International Ratio 2.8 RATIO 3.1 RATIO Activated Partial Thromboplast Time 46.2 SEC 46.0 SEC White Blood Count 10.0 TH/MM3 Red Blood Count 3.45 MIL/MM3 Hemoglobin 11.0 GM/DL Hematocrit 33.0 % Mean Corpuscular Volume 95.5 FL Mean Corpuscular Hemoglobin 31.7 PG Mean Corpuscular Hemoglobin Concent 33.2 % Red Cell Distribution Width 16.0 % Platelet Count 125 TH/MM3 Mean Platelet Volume 9.9 FL Neutrophils (%) (Auto) 87.8 % Lymphocytes (%) (Auto) 3.4 % Monocytes (%) (Auto) 8.1 % Eosinophils (%) (Auto) 0.2 % Basophils (%) (Auto) 0.5 % Neutrophils # (Auto) 8.8 TH/MM3 Lymphocytes # (Auto) 0.3 TH/MM3 Monocytes # (Auto) 0.8 TH/MM3 Eosinophils # (Auto) 0.0 TH/MM3 Basophils # (Auto) 0.0 TH/MM3 CBC Comment DIFF FINAL Differential Comment Blood Urea Nitrogen 90 MG/DL Creatinine 11.94 MG/DL Random Glucose 252 MG/DL Calcium Level 9.0 MG/DL Phosphorus Level 8.3 MG/DL Sodium Level 138 MEQ/L Potassium Level 5.5 MEQ/L Chloride Level 98 MEQ/L Carbon Dioxide Level 25.8 MEQ/L Anion Gap 14 MEQ/L Estimat Glomerular Filtration Rate 4 ML/MIN Assessment and Plan Problem List: (1) Non-ST elevation NE (NSTEMI) ICD Codes: I21.4 - Non-ST elevation (NSTEMI) myocardial infarction Status: Acute (2) Multi-vessel coronary artery stenosis ICD Codes: I25.10 - Atherosclerotic heart disease of [place] coronary artery without angina pectoris (3) ESRD on hemodialysis ICD Codes: N18.6 - End stage renal disease; Z99.2 - Dependence on renal dialysis (4) HTN (hypertension) ICD Codes: I10 - Essential (primary) hypertension Status: Chronic (5) Paroxysmal atrial fibrillation ICD Codes: I48.0 - Paroxysmal atrial fibrillation Status: Acute (6) Diabetes mellitus ICD Codes: E11.9 - Diabetes mellitus Status: Chronic (7) Ischemic cardiomyopathy ICD Codes: I25.5 - Ischemic cardiomyopathy Status: Chronic (8) Anemia ICD Codes: D64.9 - Anemia, unspecified Status: Chronic (9) Hyperlipidemia ICD Codes: E78.5 - Hyperlipidemia, unspecified Status: Chronic Assessment and Plan 1) NSTEMI Con't ASA/Brilinta/Heparin drip Stop Coumadin Possible catheterization tomorrow, INR still 3.1 Will plan on giving vitamin K today 2) CAD with history of complex PCI Plan for repeat catheterization as above 3) Afib Will plan to hold Coumadin for planned procedure 4) EF 40-45%, decreased from previous 5) Elevated INR Possible due to last dose of Coumadin on 08/01/17? LFT relatively normal Plan for Vitamin K Problem Qualifiers (1) Diabetes mellitus: José Antonio May DO Aug 04, 2017 11:59
[2017-08-04] MEDS: DOCUSATE SODIUM 50 MG/SENNA 8.6 MG TAB PO SCH ×2 (12:32→19:36)
[2017-08-04] MEDS: ASPIRIN 81 MG CHEW TAB PO SCH (12:32)
[2017-08-04] MEDS: AMIODARONE 200 MG TAB PO SCH ×2 (12:32→19:36)
[2017-08-04] MEDS: GABAPENTIN 100 MG CAP PO SCH (12:33)
[2017-08-04] MEDS: PRAMIPEXOLE DIHYDROCHLORIDE 0.25 MG TAB PO SCH ×2 (12:33→19:36)
[2017-08-04] MEDS: FAMOTIDINE 20 MG/2 ML VIAL IV PUSH SCH ×2 (12:33→19:36)
[2017-08-04] MEDS: TICAGRELOR 90 MG TAB PO SCH ×2 (12:33→19:36)
--- NOTE | 2017-08-04 16:34 | RADRPT ---
EXAM DATE/TIME: 08/04/2017 15:44 [place] COMPARISON: CHEST PA & LAT, August 01, 2017, 15:34. INDICATIONS : Cough, short of breath MEDICAL HISTORY : Hypertension. Cerebrovascular disease. Diabetes SURGICAL HISTORY : Vas cath placement ENCOUNTER: Subsequent ACUITY: 4 - 6 days PAIN SCORE: 0/10 LOCATION: chest FINDINGS: There is mild perihilar infiltrate, mainly on the left. No significant effusion. Cardiac contours are grossly stable. CONCLUSION: Developing perihilar parenchymal opacity, left worse than right Noam Sparks MD on August 04, 2017 at 16:31 Board Certified Radiologist. This report was verified electronically.
[2017-08-04] MEDS: AZITHROMYCIN 250 MG TAB PO SCH (17:15)
[2017-08-04] MEDS: cefTRIAXone INJ 1,000 MG in SODIUM CHLORIDE 0.9% INJ 100 ML IV SCH (17:17)
[2017-08-05] VITALS (35 sets, daily range): BP systolic 97–121; BP diastolic 52–75; PULSE 68–75; RESP 11–36; TEMP 99–99.2; O2SAT 78–100
[2017-08-05] MEDS: RESP: ALBUTEROL 2.5 MG/IPRATROPIUM 0.5 MG NEB (SCH) INH ×5 (01:05→16:21)
[2017-08-05] MEDS: INSULIN NovoLIN REGULAR SUPPLEMENTAL SCALE SQ SCH ×5 (04:00→19:53)
[2017-08-05 05:19] LABS: AUTOMATED NEUTROPHIL # 7.8 TH/MM3 (1.8-7.7); BASOPHIL % 0.4 % (0.0-2.0); HEMATOCRIT 28.8 % (39.0-51.0); HEMOGLOBIN 9.6 GM/DL (13.0-17.0); LYMPH % 6.7 % (9.0-44.0); LYMPHOCYTE # 0.6 TH/MM3 (1.0-4.8); MEAN CORPUSCULAR HEMOGLOBIN 31.6 PG (27.0-34.0); MEAN CORPUSCULAR HGB CONC 33.3 % (32.0-36.0); MEAN PLATELET VOLUME 9.7 FL (7.0-11.0); MONO % 9.3 % (0.0-8.0); MONOCYTE # 0.9 TH/MM3 (0-0.9); NEUT % 83.6 % (16.0-70.0); PLATELET COUNT 127 TH/MM3 (150-450); RED BLOOD COUNT 3.03 MIL/MM3 (4.50-5.90); RED CELL DISTRIBUTION WIDTH 15.8 % (11.6-17.2); WHITE BLOOD COUNT 9.4 TH/MM3 (4.0-11.0)
[2017-08-05] MEDS: ISOSORBIDE MONONITRATE 60 MG TAB PO SCH (05:26)
[2017-08-05] MEDS: NITROGLYCERIN 2% OINT 1 GM PACKET TOPICAL SCH ×3 (05:26→17:30)
[2017-08-05 05:29] LABS: INTERNATIONAL NORMALIZED RATIO 2.1 RATIO; PROTHROMBIN TIME - PATIENT 21.1 SEC (9.8-11.6)
[2017-08-05 06:09] LABS: BICARBONATE 29.3 MEQ/L (21.0-32.0); CALCIUM 9.4 MG/DL (8.5-10.1)
[2017-08-05 06:12] LABS: CREATININE 10.34 MG/DL (0.60-1.30)
[2017-08-05] MEDS: ASPIRIN 81 MG CHEW TAB PO SCH (07:50)
[2017-08-05] MEDS: GABAPENTIN 100 MG CAP PO SCH (07:50)
[2017-08-05] MEDS: TICAGRELOR 90 MG TAB PO SCH ×2 (07:50→19:38)
[2017-08-05] MEDS: AZITHROMYCIN 250 MG TAB PO SCH (07:50)
[2017-08-05] MEDS: DOCUSATE SODIUM 50 MG/SENNA 8.6 MG TAB PO SCH ×2 (07:50→19:38)
[2017-08-05] MEDS: PRAMIPEXOLE DIHYDROCHLORIDE 0.25 MG TAB PO SCH ×2 (07:51→19:38)
[2017-08-05] MEDS: AMIODARONE 200 MG TAB PO SCH ×2 (07:51→19:38)
[2017-08-05] MEDS: FAMOTIDINE 20 MG/2 ML VIAL IV PUSH SCH ×2 (07:51→19:38)
[2017-08-05] MEDS: CALCIUM ACETATE 667 MG CAP PO SCH ×3 (08:00→17:29)
[2017-08-05] MEDS: CHLORHEXIDINE GLUCONATE 2 % 1 PACK (2 CLOTHS) TOP SCH (08:00)
[2017-08-05] MEDS: CARVEDILOL 6.25 MG TAB PO SCH ×2 (08:00→19:38)
--- NOTE | 2017-08-05 09:15 | HHI.CCPN ---
Subjective Remarks/Hospital Course Patient is a 57-year-old male with past medical history of coronary artery disease, diabetes mellitus, hypertension, end-stage renal disease on hemodialysis Tuesday, , Tuesday. The patient presented to [facility] ED with midsternal chest pain described as sharp, throbbing pain , 5/10 on the pain scale. The pain is localized. The patient also reports shortness of breath associated with his chest discomfort. He denies any nausea , vomiting or abdominal pain. In addition he denies any orthopnea, PND or edema of lower extremities. His laboratory data showed troponin of 13.9 with a total CK 358 and MB percentage 4.1. In addition his creatinine level is 11.0 with a potassium 4.7. A chest x-ray in the ED showed compensated cardiomegaly otherwise negative. EKG showed sinus bradycardia with first degree AV block, rate of 59 beats per minute, findings similar to prior EKG from March. He is on Coumadin and Plavix at home and his INR is therapeutic at 2.6. The patient was last hospitalized on April 12, 2017 for NSTEMI as well and at that time he underwent cardiac catheterization by Dr. May with multiple drug-eluting stents placed. His cath showed moderate to severe coronary artery disease with EF of 20%. He was evaluated by cardiothoracic surgery at that time for evaluation of CABG however, he was turned down due to no target vessels. The patient denies any fever, chills, cough or any constitutional symptoms. 08/02 No events overnight. Patient is lying in bed in NAD. Started on Heparin drip. 08/03 No events overnight. s/p HD yesterday with removal 3L. On Heparin drip. T; 101.7 last night. 08/04 No events overnight for HD today and possible cardiac cath. On Heparin drip. Patient denies any chest pain on 3L oxygen. 08/05 Patient denies any CP/SOB, for cardiac cath today. On Heparin drip. Objective Vital Signs Date Time Temp Pulse Resp B/P (MAP) Pulse Ox O2 Delivery O2 Flow Rate FiO2 08/05/17 08:54 98 Nasal Cannula 3.00 08/05/17 06:00 74 08/05/17 04:00 99.2 24 98/56 (70) 08/04/17 07:00 97 Intake and Output 08/05/17 08/05/17 08/06/17 08:00 16:00 00:00 Intake Total 50 ml Output Total 0 ml Balance 50 ml Result Diagram: 08/05/17 0415 08/05/17 0415 Other Results Laboratory Tests Test 08/04/17 17:49 08/05/17 04:15 Activated Partial Thromboplast Time 48.6 SEC 42.8 SEC White Blood Count 9.4 TH/MM3 Red Blood Count 3.03 MIL/MM3 Hemoglobin 9.6 GM/DL Hematocrit 28.8 % Mean Corpuscular Volume 95.0 FL Mean Corpuscular Hemoglobin 31.6 PG Mean Corpuscular Hemoglobin Concent 33.3 % Red Cell Distribution Width 15.8 % Platelet Count 127 TH/MM3 Mean Platelet Volume 9.7 FL Neutrophils (%) (Auto) 83.6 % Lymphocytes (%) (Auto) 6.7 % Monocytes (%) (Auto) 9.3 % Eosinophils (%) (Auto) 0.0 % Basophils (%) (Auto) 0.4 % Neutrophils # (Auto) 7.8 TH/MM3 Lymphocytes # (Auto) 0.6 TH/MM3 Monocytes # (Auto) 0.9 TH/MM3 Eosinophils # (Auto) 0.0 TH/MM3 Basophils # (Auto) 0.0 TH/MM3 CBC Comment DIFF FINAL Differential Comment Prothrombin Time 21.1 SEC Prothromb Time International Ratio 2.1 RATIO Blood Urea Nitrogen 85 MG/DL Creatinine 10.34 MG/DL Random Glucose 209 MG/DL Calcium Level 9.4 MG/DL Sodium Level 138 MEQ/L Potassium Level 5.1 MEQ/L Chloride Level 96 MEQ/L Carbon Dioxide Level 29.3 MEQ/L Anion Gap 13 MEQ/L Estimat Glomerular Filtration Rate 5 ML/MIN Imaging Last Impressions Chest X-Ray 08/04/17 0000 Signed Impressions: Service Date/Time: July 15:44 - CONCLUSION: Developing perihilar parenchymal opacity, left worse than right Noam Sparks MD Objective Remarks GENERAL: Patient is lying in bed in NAD SKIN: Warm and dry. HEAD: Normocephalic. EYES: No scleral icterus. No injection or drainage. NECK: Supple, trachea midline. No JVD or lymphadenopathy. CARDIOVASCULAR: Regular rate and rhythm without murmurs, gallops, or rubs. RESPIRATORY: Breath sounds equal bilaterally. No accessory muscle use. GASTROINTESTINAL: Abdomen soft, non-tender, nondistended. MUSCULOSKELETAL: No cyanosis, or edema. Neuro: Awake and alert A/P Assessment and Plan 1. Resp Insuff 2. NSTEMI 3. ESRD 4. Coagulopathy 5. Diabetes mellitus. 6. Hypertension. 7. Hyperlipidemia. 7. Obesity. Plan Neuro: Monitor neuro status. Awake and alert Pulm: Continue with oxygen maintain sats above 92%. Bronchodilators CV: Monitor HR and BP and maintain MAP >65mmHg. Trop is trending down. Echo showed EF 40-45% Cards is following- Dr. May.on Heparin drip per cards,- INR 2.1 today s/p cardiac catheterization in March 2017 with multiple drug eluding stents placed. The patient was turned down by CT surgery for CABG. For cardiac cath today . On Amiodarone 200 mg b.i.d., Imdur 60 mg daily, Brilinta, ASA, NTG top 1"Q6 : Monitor renal function and avoid nephrotoxins. Renal- Dr. Corona On HD T, TH,S s/p HD yesterday w removal 2L. GI: On Pepcid 20 mg q.12 for GI prophylaxis. NPO for cath today ID: [email or web address] ( [email or web address])Monitor for signs of infections( fever and WBC). Follow up on BC -NGTD check sputum cx Heme: Monitor CBC and coags- on Heparin drip Endo: SSI with Accu-Cheks for glycemic control. GI prophylaxis with Pepcid and DVT prophylaxis with SCDs, heparin drip Level 2 Nona Jones MD Aug 05, 2017 09:15
[2017-08-05] MEDS ORDERED: HEPARIN-NS/PF FLUSH BAG 2,000 ML IV FLUSH ONE (09:37)
[2017-08-05] MEDS ORDERED: MIDAZOLAM HCL 2 MG/2 ML VIAL ONE (09:38)
[2017-08-05] MEDS ORDERED: PIPERACIL-TAZO 4.5 GM PREMIX 100 ML IV SCH (10:00)
[2017-08-05] MEDS ORDERED: HEPARIN SODIUM - IV 10,000 UNITS/10 ML VIAL ONE (10:24)
[2017-08-05] MEDS ORDERED: PHENYLEPHRINE HCL 10 MG/ML VIAL ONE (10:28)
--- NOTE | 2017-08-05 11:49 | CATHPROC ---
[employer]wi HIS Report Study Information Study Number Admission Scheduled Start Study Start [id number] Aug 01 2017 5:06PM 08/05/2017 Aug 05 2017 9:30AM Adrian Service Cardiac Catheterization Admit Source Facility Department Emergency department [facility] - Note Keeper Physician and Clinical Staff Initial José Antonio Michel Engagement Liaison Marbella Sheridan,LEESA Recorder Jian Gil,RT(R) Scrub Jayda Trinidad,RT(R) (BS) Procedures Performed Procedure Location (Site) Vessel Name Coronary Angiograms LCA Left Coronary Coronary Angiograms RCA Right Coronary L Heart Cath TUFTING MACHINE OPERATOR CIRC Prox CIRC TUFTING MACHINE OPERATOR LAD Prox Left Coronary PTCA CIRC Prox CIRC PTCA ADD ON'S Wire insertion Fem Art (right) Femoral Art Equipment Time Bus Driver Supervisor Description Size Mfg Part Number Used/Scraped [id number] 10:31 [employer] WIRE, ASAHI PROWATER 180CM 180CM Used *[id number] WIRE, BALANCE MIDDLEWEIGHT [id number] 10:27 [employer] 190CM Used 190CM *[id number] TRANSDUCER, TRUWAVE [id number] 09:32 MARTINEZ HESS * Used W/STOCKCOCK *[id number] BALLOON, 2.75 6MM FLEXTOME [id number] 10:58 [employer]OSTON [employer] 2.75 6MM Used CUTTING *[id number] [place]ALLO[place], 3.0 [place] [id number] 11:05 [employer] 3.0 15MM Used QUANTUM APEX MR *[id number] BALLOON, 3.0 8MM NC QUANTUM [id number] 11:03 [employer] 3.0 8MM Used APEX MR *[id number] INTRODUCER SET, 09:32 [employer]. FR 5 [id number] *[id number] Used MICROPUNCTURE, STIFFENED [id number] *[id number] 11:22 DAIG/ST. JACQUI MEDICAL ANGIOSEAL, FR6 VIP FR 6 Used *[id number] 09:32 [employer] INDUSTRIES PACK, CCL CUSTOM * Used *[id number] 10:10 MEDTRONIC JR 4.0 DXTERITY CATHETER FR 5 Used *[id number] 10:23 MEDTRONIC/AVE EBU 3.5 Z2 GUIDE CATHETER FR 6 Used *[id number] 10:25 mobifriends 30 LUIS ANGEL INDEFLATOR Used *[id number] 09:32 MERIT MEDICAL WIRE, 3MMJ .035 180CM 180CM Used *[id number] 09:32 NAMIC MANIFOLD, 4 PORT * Used *[id number] 09:32 NYCOMED OMNIPAQUE, 350 MG, 150ML 150ML [id number] Used 10:25 NYCOMED OMNIPAQUE, 350 MG, 150ML 150ML [id number] Used [id number] 09:32 HOLLAND [employer] BLANKET,WARM AIR CCL * Used *[id number] 110-004 10:42 Vouchr CATHETER, ELCA 0.9MM X-80 150CM Used *[id number] [id number] 09:32 TERUMO MEDICAL SHEATH, FR5 TERUMO (10CM) FR 5 Used *[id number] 10:23 TERUMO MEDICAL SHEATH, FR6 TERUMO (10CM) FR 6 Used *[id number] Equipment Model, Serial, Lot Number and Expiration Data Description Model Number Serial Number Lot Number Expiration Date ANGIOSEAL, FR6 VIP [id number] 04-26-2018 BALLOON, 2.75 6MM FLEXTOME [id number] 11-08-2019 CUTTING BALLOON, 3.0 15MM NC QUANTUM [id number] 05-04-2020 APEX MR BALLOON, 3.0 8MM NC QUANTUM [id number] 11-04-2019 APEX MR JR 4.0 DXTERITY CATHETER [id number] 03-31-2020 History: Current Medications Medication Dosage/Unit Route Frequency Last Date/Time Taken ASA CARVEDILOL PLAVIX NOVOLOG Coumadin History: Allergies Allergy Reaction No Known Allergies History: Risk Factors Family History of Hypertension Dyslipidemia Previous IN Previous Heart Failure Premature CAD Yes Yes No Yes Yes Prior Valve Prior PCI Prior PCIDate Prior CABG Surgery No Yes 04/21/2017 No Cerebrovascular Peripheral Artery Chronic Lung On Dialysis Diabetes Diabetes Therapy Disease Disease Disease No No Yes No Yes Oral History: Risk Factors Selection Items Diabetes Hyperlipidemia Obesity History: CV Disease Selection Items Cardiomyopathy Known CAD History: Stress Tests Stress or Imaging Studies Performed No History: Other Disease Selection Items CAD HTN Renal Failure-Dialysis History: Other Current Smoker No Labs Hgb (g/dl) Hct (%) RBC (MIL/MM3) WBC (l/cumm) Platelets (thousands) 11.60-17.00 35.00-51.00 4.00-5.90 4.00-11.00 150.00-450.00 9.6 28.8 3 9.4 127 Glucose (mg/dl) BUN (mg/dl) Creatinine (mg/dl) BUN:Creatinine (1:x) 74.00-106.00 7.00-18.00 0.50-1.30 10.00-20.00 149 87 11.3 7.7 Na (meq/l) K (meq/l) Cl (meq/l) CO2 (mmol/L) Ca (mg/dl) 136.00-145.00 3.50-5.10 98.00-107.00 21.00-32.00 8.50-10.10 138 5.1 96 29.3 9.4 PT (sec) PTT (sec) INR (PTT:PT) 9.80-11.60 24.30-30.10 0.90-1.10 21.1 42.8 2.1 Troponin I (ng/ml) CPK-MB (ng/ML) 0.02-0.05 0.50-3.60 13.9 4.1 Medication Medication Total Dose (Bolus/Oral) Medication Total Dosage/Unit 1% XYLOCAINE 20 mL FENTANYL 25 mcg HEPARIN 8600 units VERSED 0.5 mg Medications (Bolus/Oral) Medication Time Given Dosage/Unit Administered By Reason VERSED 08/05/2017 10:08:36 AM 0.5 mg Marbella Sheridan 0.5 mg VERSED given in lab by Marbella Sheridan RN in Left Forearm via Peripheral IV. 1% XYLOCAINE 08/05/2017 10:08:47 AM 20 mL José Antonio May 20 mL 1% XYLOCAINE given in lab by José Antonio May in Right Groin via Subcutaneous. FENTANYL 08/05/2017 10:09:13 AM 25 mcg Marbella Sheridan 25 mcg FENTANYL given in lab by Marbella Sheridan RN in Left Forearm via Peripheral IV. HEPARIN 08/05/2017 10:33:52 AM 7600 units Marbella Sheridan 7600 units HEPARIN given in lab by Marbella Sheridan RN in Left Forearm via Peripheral IV. HEPARIN 08/05/2017 10:44:11 AM 1000 units Marbella Sheridan 1000 units HEPARIN given in lab by Marbella Sheridan RN via Peripheral IV. Medication (Drip) Medication Time Given Dosage/Unit Concentration/Unit Diluent (ml) Solution IV Solutions 08/05/2017 9:34:45 AM 0 mL (IV) 500 NaCl .9 IV Solutions given in lab by Marbella Sheridan RN in Left Forearm via Peripheral IV. Pump/Drip Flow = 200 ml/hr using NaCl .9. Initial Case Assessment Cardiovascular HR Rhythm NIBP Chest Pain 73 Sinus 117/74 0 Edema Present Skin color Skin None Normal Warm Dry Circulatory - Right Pulses Dorsalis Pedis Femoral 1 2 Scale (0,1,2,3,4,d) Circulatory - Left Pulses Dorsalis Pedis Femoral 1 2 Scale (0,1,2,3,4,d) Neurological State Oriented to time-place- Alert Moves all extremities person Respiration - General Respiration Rate SpO2 (%) O2 (lpm) (B/min) 12 96 0 Final Case Assessment Cardiovascular HR Rhythm NIBP Chest Pain 70 Sinus 119/73 0 Edema Present Skin color Skin None Normal Warm Dry Circulatory - Right Pulses Dorsalis Pedis Femoral 1 2 Scale (0,1,2,3,4,d) Circulatory - Left Pulses Dorsalis Pedis Femoral 1 2 Scale (0,1,2,3,4,d) Neurological State Oriented to time-place- Alert Moves all extremities person Respiration - General Respiration Rate SpO2 (%) O2 (lpm) (B/min) 19 99 2 Chronological Log Time Study Chronological Log 9:33:49 Patient arrived via Bed. 9:33:50 Patient Name, D.O.B, / Armband Verified By R.N. 9:33:51 Consent signed by the physician and the patient and verified by the Note Keeper staff. 9:33:53 Pre-op and post- op instructions given; patient acknowledges understanding of instructions. 9:33:54 Verbal Stimulation=2 Physical Stimulation=2 Airway=2 Respiration=2 TOTAL=8. (0=absent, 1=li mited, 2=present) 9:34:05 Presedation assessment performed by Note Keeper RN. 9:34:09 Patient has been NPO for More than 6Hrs. 9:34:10 Skin Breakdown- 9:34:31 Patient Warmer Placed on the Table. 9:34:34 Tabitha Prominences Protected 9:34:36 A # 20 IV was noted in the Forearm (left). Grade = 0 IV Solutions given in lab by Marbella Sheridan, RN in Left Forearm via Peripheral IV. Pump/Drip F low = 200 ml/hr using 9:34:45 NaCl .9. 9:34:48 History and physical on the chart or being dictated. Assessment: Initial Case, HR=73 BPM, Rhythm=Sinus, YSXK=946/74 mmhg, Chest Pain=0, Edema=None, Color=Normal, Skin = Warm, Dry Right Pulses: Lyle Ped=1, Femoral=2 9:34:50 Left Pulses: Lyle Ped=1, Femoral=2 Neurological: State=Alert, Ox3, LUIS Respiration: Resp=12 B/min, SpO2=96 %, O2=0 lpm Vitals capture started with the following parameters, Patient=Adult, Interval=5 min, Initial Pr heqgme=009 mmHg, 9:40:29 Deflation Rate=5 mmHg, Cuff placed on Left Arm 9:41:10 HR=3 bpm, LZVS=319/74 mmhg, Resp=11 B/min, Pain=0, Lindy=10, Frances=2 9:45:43 Reference ECG taken 9:46:07 HR=47 bpm, WEOB=457/78 mmhg, Resp=24 B/min, Pain=0, Lindy=10, Frances=2 9:50:16 Bilateral groins prepped with 2% chlorhexidine, and draped after a 3 minute waiting time. 9:50:50 DO paged 9:51:08 HR=0 bpm, CYQA=947/77 mmhg, SpO2=97.0 %, Resp=21 B/min, Pain=0, Lindy=10, Frances=2 9:52:17 Pressure channel 1 zeroed. 9:56:09 HR=13 bpm, RWCK=243/76 mmhg, SpO2=90.0 %, Resp=20 B/min, Pain=0, Lindy=10, Frances=2 10:01:10 HR=0 bpm, OIGE=557/78 mmhg, Resp=30 B/min 10:01:11 DO arrived. 10:06:11 HR=0 bpm, NOZR=158/76 mmhg, SpO2=91.0 %, Resp=17 B/min, Pain=0, Lindy=10, Frances=2 Time Out. Correct patient, correct procedure, correct physician, power injector not loaded with contrast with surgical 10:06:44 team present. Time Out Concurred by MD and individual staff in procedure. 10:07:28 Case Start 10:08:36 0.5 mg VERSED given in lab by Marbella Sheridan RN in Left Forearm via Peripheral IV. 10:08:47 20 mL 1% XYLOCAINE given in lab by José Antonio May in Right Groin via Subcutaneous. 10:09:13 25 mcg FENTANYL given in lab by Marbella Sheridan RN in Left Forearm via Peripheral IV. 10:10:30 Access site was Right Femoral Artery. 10:11:04 A SHEATH, FR5 TERUMO (10CM) FR 5 was advanced into the Fem Art (right) using the Percutaneo us technique. 10:11:08 HR=0 bpm, GBIF=995/75 mmhg, SpO2=90.0 %, Resp=15 B/min, Pain=0, Lindy=10, Frances=2 10:12:09 An injection in the Fem Art (right) was made through the SHEATH, FR5 TERUMO (10CM) FR 5. A JR 4.0 DXTERITY CATHETER FR 5 was advanced over a wire. OMNIPAQUE, 350 MG, 150ML 150ML was us ed for 10:13:02 injections. Recorded Pressure: LV, HR=73, Condition=Condition 1 10:14:12 (Left Ventricle) LV 119/17/35 10:14:55 Pressure channel 1 zeroed. 10:16:09 HR=8 bpm, SAJH=424/74 mmhg, SpO2=94.0 %, Resp=10 B/min, Pain=0, Lindy=10, Frances=2 Recorded Pressure: LV, Ao, HR=70, Condition=Condition 1 10:17:01 (Left Ventricle) LV 108/12/32, (Aorta) Ao 106/63/82 Recorded Pressure: Ao, HR=71, Condition=Condition 1 10:17:28 (Aorta) Ao 110/66/85 10:17:41 The RCA was injected and visualized at various angles. OMNIPAQUE, 350 MG, 150ML 150ML used . After removing the current catheter a JL 4.0 INFINITI CATHETER FR 5 was advanced over a WIRE, 3 MMJ .035 180CM 10:19:40 180CM. 10:21:08 HR=11 bpm, FXST=018/74 mmhg, Resp=14 B/min, Pain=0, Lindy=10, Frances=2 10:21:38 The LCA was injected and visualized at various angles. OMNIPAQUE, 350 MG, 150ML 150ML used . 10:23:00 Catheter was removed A SHEATH, FR6 TERUMO (10CM) FR 6 was exchanged in the Fem Art (right). This was necessary in or latosha to 10:23:07 accomodate a larger catheter. 10:24:31 OMNIPAQUE, 350 MG, 150ML 150ML and 30 LUIS NAGEL INDEFLATOR added. A EBU 3.5 Z2 GUIDE CATHETER FR 6 was advanced over a wire. OMNIPAQUE, 350 MG, 150ML 150ML was u sed for 10:24:53 injections. 10:26:09 HR=0 bpm, QXFO=389/70 mmhg, SpO2=90.0 %, Resp=24 B/min, Pain=0, Lindy=10, Frances=2 10:30:22 A WIRE, BALANCE MIDDLEWEIGHT 190CM 190CM was inserted via Fem Art (right). 10:31:14 HR=0 bpm, OLGH=683/64 mmhg, SpO2=91.0 %, Resp=23 B/min, Pain=0, Lindy=10, Rfances=2 10:33:52 7600 units HEPARIN given in lab by Marbella Sheridan, LEESA in Left Forearm via Peripheral IV. 10:35:51 Interventional wire has crossed the lesion 10:36:07 HR=27 bpm, AMWR=215/73 mmhg, SpO2=96.0 %, Resp=17 B/min, Pain=0, Lindy=10, Frances=2 10:37:39 Activated Clotting Time Drawn 10:41:10 HR=0 bpm, FKAF=901/78 mmhg, Resp=17 B/min, Pain=0, Lindy=10, Frances=2 A CATHETER, ELCA 0.9MM X-80 150CM was advanced over a wire. OMNIPAQUE, 350 MG, 150ML 150ML was used for 10:42:24 injections. 10:42:44 A laser catheter was inserted into the CIRC Prox. 10:42:47 Athrectomy in progress with laser catheter. Prox Circ. 10:43:22 ACT (Normal Range 90-180) = 288 10:44:11 1000 units HEPARIN given in lab by Marbella Sheridan, LEESA via Peripheral IV. 10:46:14 HR=0 bpm, GAKQ=116/71 mmhg, SpO2=98.0 %, Resp=12 B/min, Pain=0, Lindy=10, Frances=2 10:48:31 Catheter was removed 10:48:38 A WIRE, ASAHI PROWATER 180CM 180CM was inserted via Fem Art (right). Down the LAD. 10:51:13 HR=0 bpm, KGWJ=430/75 mmhg, Resp=18 B/min, Pain=0, Lindy=10, Frances=2 10:55:56 Interventional wire has crossed the lesion 10:56:12 HR=0 bpm, KNAV=315/78 mmhg, Resp=8 B/min, Pain=0, Lindy=10, Frances=2 A BALLOON, 2.75 6MM FLEXTOME CUTTING 2.75 6MM was inserted over WIRE, BALANCE MIDDLEWEIGHT 190C M 10:57:27 190CM via the CIRC Prox. A BALLOON, 2.75 6MM FLEXTOME CUTTING 2.75 6MM over a WIRE, BALANCE MIDDLEWEIGHT 190CM 190CM in the 11:00:22 CIRC Prox was inflated using a 30 LUIS ANGEL INDEFLATOR at 10 luis angel for 30 sec. 11:01:02 Balloon Removed. 11:01:13 HR=0 bpm, NIBP=91/67 mmhg, SpO2=99.0 %, Resp=17 B/min, Pain=0, Lindy=10, Frances=2 11:02:57 Activated Clotting Time Drawn A BALLOON, 3.0 8MM NC QUANTUM APEX MR 3.0 8MM was inserted over WIRE, BALANCE MIDDLEWEIGHT 190C M 11:04:57 190CM via the CIRC Prox. A BALLOON, 3.0 15MM NC QUANTUM APEX MR 3.0 15MM was inserted over WIRE, ASAHI PROWATER 180CM 18 0CM 11:05:38 via the LAD Prox. 11:06:47 HR=0 bpm, YBWA=074/71 mmhg, SpO2=89.0 %, Resp=21 B/min, Pain=0, Lindy=10, Frances=2 11:08:03 In the CIRC Prox a BALLOON, 3.0 8MM NC QUANTUM APEX MR 3.0 8MM was inflated to 12 atms for 10 seconds. 11:08:26 ACT (Normal Range 90-180) = 300 11:08:46 In the CIRC Prox a BALLOON, 3.0 8MM NC QUANTUM APEX MR 3.0 8MM was inflated to 16 atms for 8 seconds. 11:09:04 In the CIRC Prox a BALLOON, 3.0 8MM NC QUANTUM APEX MR 3.0 8MM was inflated to 16 atms for 8 seconds. 11:10:43 In the LAD Prox a BALLOON, 3.0 15MM NC QUANTUM APEX MR 3.0 15MM was inflated to 12 atms for 10 seconds. 11:10:44 In the CIRC Prox a BALLOON, 3.0 8MM NC QUANTUM APEX MR 3.0 8MM was inflated to 12 atms for 10 seconds. 11:11:13 HR=0 bpm, NIBP=86/64 mmhg, SpO2=93.0 %, Resp=29 B/min, Pain=0, Lindy=10, Frances=2 11:13:25 In the LAD Prox a BALLOON, 3.0 15MM NC QUANTUM APEX MR 3.0 15MM was inflated to 12 atms for 15 seconds. 11:13:28 In the CIRC Prox a BALLOON, 3.0 8MM NC QUANTUM APEX MR 3.0 8MM was inflated to 12 atms for 15 seconds. 11:15:53 In the CIRC Prox a BALLOON, 3.0 8MM NC QUANTUM APEX MR 3.0 8MM was inflated to 16 atms for 10 seconds. 11:16:41 HR=0 bpm, NBVX=206/77 mmhg, SpO2=98.0 %, Resp=11 B/min, Pain=0, Lindy=10, Frances=2 11:16:54 Balloon Removed. 11:16:59 Balloon Removed. 11:17:52 The LCA was injected and visualized at various angles. OMNIPAQUE, 350 MG, 150ML 150ML use d. 11:21:13 HR=0 bpm, DNDG=201/79 mmhg, Resp=14 B/min, Pain=0, Lindy=10, Frances=2 11:21:43 The LCA was injected and visualized at various angles. OMNIPAQUE, 350 MG, 150ML 150ML use d. 11:21:53 Wire removed 11:21:54 Wire removed 11:23:53 ANGIOSEAL, FR6 VIP FR 6 placement in the Fem Art (right) 11:25:31 Case End 11:25:34 No case complications noted. 11:25:35 Cine recording checked. 11:26:18 HR=0 bpm, RHGO=683/73 mmhg, Resp=23 B/min, Pain=0, Lindy=10, Frances=2 11:27:00 Bedside Report will be given. 11:27:07 A Left Heart Cath was performed. Assessment: Final Case, HR=70 BPM, Rhythm=Sinus, NMTZ=818/73 mmhg, Chest Pain=0, Edema=None, Color=Normal, Skin = Warm, Dry Right Pulses: Lyle Ped=1, Femoral=2 11:27:12 Left Pulses: Lyle Ped=1, Femoral=2 Neurological: State=Alert, Ox3, LUIS Respiration: Resp=19 B/min, SpO2=99 %, O2=2 lpm 11:31:15 HR=0 bpm, RLOD=780/77 mmhg, SpO2=98.0 %, Resp=23 B/min, Pain=0, Lindy=10, Frances=2 11:34:53 Sterile dressing applied to site 11:35:51 Vitals capture stopped. 11:43:26 [facility] End Study - Contrast Media Used In Study Contrast Total Opened (mL) Total Used (mL) Total Wasted (mL) Omnipaque 300 100 200 End Study - Maximum Contrast Load Max Contrast Load (mL) 48.5 End Study - Radiation Exposure Fluoro Time (minutes) 17.6 End Study - Patient Disposition Complications Transferred To Interventional Outcome No Telemetry Bed successful
[2017-08-05] MEDS ORDERED: MISC INFORMATION XX ONE (12:00)
[2017-08-05] MEDS ORDERED: IOHEXOL 350 MG/ML 100 ML BTL (for Cath Lab) OTHER ONE (12:00)
--- NOTE | 2017-08-05 14:54 | HHI.NPPN ---
Subjective General Problems: Hypertension Renal Failure: End Stage Renal Disease History of Present Illness This is a 57-year-old man known to me from before with past medical history of hypertension, ischemic heart disease, end-stage renal disease on hemodialysis, chronic anemia, diabetes mellitus. He came to the hospital with complaint of chest pain and mild shortness of breath. I was called to see the patient because of management of dialysis. The patient has been on hemodialysis three times per week - Tuesday, and Tuesday, and according to the patient he has not been missing any treatment. He went for his dialysis on Tuesday. The patient's chest pain started off and on but according to him it was not very severe and he went to get gas in his car with his friend and at the gas station he collapsed and fell down and lost of consciousness for almost a minute. The patient was leaning against his car when he started feeling dizzy and he does not remember exactly what happened. The patient's friend called for help and the patient woke up. He was admitted in March and at that time he had a cardiac catheterization by Dr. May and it was found that he has severe ischemic heart disease and he was seen by Cardiac Surgery and it is thought that he is not a candidate for surgery and he underwent stenting done on April 22. The patient has some pain in his thigh area and then he was on one of the statins and it was stopped. It was initially reduced in the dose and then it was stopped by his primary physician with the thought of improving the pain, but he has some kind of cramping in the thigh and the legs sometime off and on. The patient denies missing any dialysis treatment recently, although he has still been gaining too much weight in between the treatments. Additional Remarks Patient seen after the Cardiac Cath., no chest pain, no SOB. Review of Systems Respiratory Respiratory Remarks Denies SOB Cardiovascular Cardiac Remarks Denies cp Gastrointestinal GI Remarks denies abdominal pain Objective Data Data Vital Signs Date Time Temp Pulse Resp B/P (MAP) Pulse Ox O2 Delivery O2 Flow Rate FiO2 08/05/17 14:15 70 16 106/60 (75) 85 08/05/17 14:15 70 16 106/60 (75) 85 08/05/17 14:00 68 17 117/66 (83) 80 08/05/17 14:00 68 17 117/66 (83) 80 08/05/17 13:45 69 11 114/64 (81) 87 2 13:45 69 11 114/64 (81) 87 08/05/17 13:30 69 15 115/60 (78) 95 08/05/17 13:30 69 15 115/60 (78) 95 08/05/17 13:15 68 17 118/74 (89) 99 08/05/17 13:15 68 17 118/74 (89) 99 08/05/17 13:15 68 17 118/74 (89) 99 08/05/17 13:00 68 22 118/72 (87) 98 08/05/17 13:00 68 22 118/72 (87) 98 08/05/17 13:00 68 22 118/72 (87) 98 08/05/17 13:00 68 08/05/17 13:00 68 22 118/72 (87) 98 08/05/17 12:45 69 08/05/17 12:45 69 21 120/75 (90) 96 08/05/17 12:45 69 21 120/75 (90) 96 08/05/17 12:30 69 21 120/75 (90) 98 08/05/17 12:30 69 21 120/75 (90) 98 08/05/17 12:30 69 08/05/17 12:15 68 15 121/72 (88) 98 08/05/17 12:15 68 15 121/72 (88) 98 08/05/17 12:15 68 08/05/17 12:08 68 15 112/68 (83) 93 08/05/17 12:08 68 08/05/17 12:08 68 15 112/68 (83) 93 08/05/17 12:00 69 16 86 08/05/17 12:00 69 08/05/17 12:00 69 16 86 08/05/17 09:00 72 19 117/71 (86) 99 08/05/17 08:54 98 Nasal Cannula 3.00 08/05/17 08:00 74 23 110/67 (81) 99 08/05/17 08:00 72 08/05/17 07:00 93 Nasal Cannula 3.00 08/05/17 06:00 74 08/05/17 04:00 71 08/05/17 04:00 99.2 71 24 98/56 (70) 100 08/05/17 03:58 100 Nasal Cannula 3.00 08/05/17 02:00 72 08/05/17 01:06 98 Nasal Cannula 3.00 08/05/17 00:00 99.0 75 22 112/69 (83) 94 08/05/17 00:00 75 08/04/17 22:00 74 08/04/17 21:06 94 Nasal Cannula 2.00 08/04/17 20:00 80 12 96/54 (68) 96 08/04/17 20:00 80 08/04/17 19:00 94 Nasal Cannula 5.00 08/04/17 18:00 85 08/04/17 16:05 75 9 101/46 (64) 87 08/04/17 16:05 75 08/04/17 16:00 90 08/04/17 16:00 90 30 84 08/04/17 16:00 90 08/04/17 15:00 90 -: 08/05/17 0415 08/05/17 0415 Microbiology 08/04/17 Aerobic Blood Culture - Preliminary, Resulted NO GROWTH IN 1 DAY 08/04/17 Anaerobic Blood Culture - Preliminary, Resulted NO GROWTH IN 1 DAY 08/04/17 Aerobic Blood Culture - Preliminary, Resulted NO GROWTH IN 1 DAY 08/04/17 Anaerobic Blood Culture - Preliminary, Resulted NO GROWTH IN 1 DAY Physical Exam General Appearance: No Acute Distress, Obese Eyes Eye Exam: Pupils Equal Throat Throat Exam: Oral Mucosa Tennille & Moist Pulmonary Resp Exam: Breath Sounds Equal, No Distress, Decreased Bases Cardiology CV Exam: Regular Gastrointestinal/Abdomen GI Exam: Soft, Non-Tender, Bowel Sounds Present Genitourinary Exam: Flank Non-Tender Extremeties Extremities Exam: Trace Edema Neurologic Neuro Exam: Alert, Awake, Oriented Psychiatric Psych Exam: Appropriate Responses Assessment/Plan Discussed Condition With: Patient Assessment Summary: End Stage Renal Disease Electrolyte Assessment: Hyperkalemia Problem List: (1) ESRD on hemodialysis ICD Codes: N18.6 - End stage renal disease; Z99.2 - Dependence on renal dialysis Plan: Denies any chest pain. On heparin gtt. Leg cramps have improved with the addition of Mirapex. On Heparin gtt and CP free Now febrile. K is better 5.1. HD will be in AM. BP is on lower side, will remove fluid as tolerated. (2) Diabetes mellitus ICD Codes: E11.9 - Diabetes mellitus Status: Chronic Plan: Maintain BS 140 mg/dl to 180 mg/dl (3) Non-ST elevation MS (NSTEMI) ICD Codes: I21.4 - Non-ST elevation (NSTEMI) myocardial infarction Status: Acute Plan: On heparin gtt. No chest pain currently Plans for heart cath possible tomorrow (4) HTN (hypertension) ICD Codes: I10 - Essential (primary) hypertension Status: Chronic Plan: Well controlled Continue current regimen Problem Qualifiers (1) Diabetes mellitus: Jeana Corona MD Aug 05, 2017 14:54
--- NOTE | 2017-08-05 14:57 | PD.CARD.PN ---
Subjective Subjective Remarks Patient was seen post-PCI with family No complaints, feels well, no chest pain Objective Medications Current Medications Medications (Trade) Dose Ordered Sig/Taj Route Start Time Stop Time Status Last Admin (Pepcid Inj) 10 mg Q12HR IV PUSH 08/01/17 21:00 08/05/17 07:51 (Duoneb Neb) 1 ampule Q4HR NEB INH 08/01/17 20:00 08/05/17 08:38 (Atrovent Neb) 0.5 mg Q2HR NEB PRN INH 08/01/17 16:45 Miscellaneous Information 1 Q361D XX 08/01/17 16:45 (Chlorhexidine 2% Cloth) 3 pack Taper DAILY@04 TOP 08/02/17 04:00 07/29/18 03:59 08/05/17 08:00 (Chlorhexidine 2% Cloth) 3 pack UNSCH PRN TOP 08/01/17 16:45 (Janett-Colace) 1 tab BID PO 08/01/17 21:00 08/05/17 07:50 (Milk Of Magnesia Liq) 30 ml Q12H PRN PO 08/01/17 16:45 (Senokot) 17.2 mg Q12H PRN PO 08/01/17 16:45 08/04/17 12:33 (Dulcolax Supp) 10 mg DAILY PRN RECTAL 08/01/17 16:45 (Lactulose Liq) 30 ml DAILY PRN PO 08/01/17 16:45 08/04/17 17:15 (Cordarone) 200 mg BID PO 08/01/17 21:00 08/05/17 07:51 (Imdur) 60 mg DAILY@07 PO 08/02/17 07:00 08/05/17 05:26 (Nitrostat Sl) 0.4 mg UNSCH PRN SL 08/01/17 16:45 08/02/17 05:36 (Coreg) 6.25 mg Q12HR PO 08/01/17 17:30 08/04/17 19:36 Sodium Chloride 1,000 ml @ 0 mls/hr Q0M PRN OTHER 08/01/17 18:07 (Heparin Inj) 8,000 units UNSCH PRN IV FLUSH 08/01/17 18:15 Sodium Chloride 1,000 ml @ 200 mls/hr Q5H PRN IV 08/01/17 18:07 Sodium Chloride 1,000 ml @ 0 mls/hr Q0M PRN OTHER 08/01/17 18:07 (Mannitol Inj) 12.5 gm UNSCH PRN IV 08/01/17 18:15 Albumin Human 100 ml @ 60 mls/hr UNSCH PRN IV 08/01/17 18:15 (NS Flush) 5 ml UNSCH PRN IV FLUSH 08/01/17 18:15 (Heparin Inj) UNSCH PRN .XX 08/01/17 18:15 (Gentamicin Inj) 20 mg UNSCH PRN OTHER 08/01/17 18:15 (Zofran Inj) 4 mg UNSCH PRN IV PUSH 08/01/17 18:15 08/02/17 17:31 (Tylenol) 650 mg UNSCH PRN PO 08/01/17 18:15 08/03/17 12:19 (Benadryl) 25 mg UNSCH PRN PO 08/01/17 18:15 (Nitrostat Sl) 0.4 mg UNSCH PRN SL 08/01/17 18:15 (Catapres) 0.1 mg UNSCH PRN PO 08/01/17 18:15 (Epogen Inj) 4,000 units UNSCH PRN IV PUSH 08/01/17 18:15 08/04/17 09:14 (Gelfoam 12 Mm/7 Mm Top) 1 foam UNSCH PRN TOP 08/01/17 18:15 08/02/17 13:33 (Aspirin Chew) 81 mg DAILY PO 08/02/17 09:00 08/05/17 07:50 (Brilinta) 90 mg BID PO 08/01/17 21:00 08/05/17 07:50 (Nitroglycerin 2% Oint) 1 inch Q6HR TOPICAL 08/02/17 00:00 08/05/17 13:16 (Neurontin) 100 mg DAILY PO 08/02/17 11:15 08/05/17 07:50 (Mirapex) 0.25 mg BID PO 08/02/17 21:00 08/05/17 07:51 (D50w (Vial) Inj) 50 ml UNSCH PRN IV PUSH 08/03/17 08:00 (Glucagon Inj) 1 mg UNSCH PRN OTHER 08/03/17 08:00 (NovoLIN R SUPPLEMENTAL SCALE) 1 Q4HR SQ 08/03/17 08:00 08/05/17 12:00 (Phoslo) 2,001 mg TID PO 08/03/17 13:00 08/05/17 13:16 Ceftriaxone Sodium 1000 mg/ Sodium Chloride 100 ml @ 200 mls/hr Q24H IV 08/04/17 17:00 08/04/17 17:17 (Zithromax) 500 mg DAILY PO 08/04/17 16:30 08/05/17 07:50 Piperacillin Sod/ Tazobactam Sod 100 ml @ 200 mls/hr Q6H IV 08/05/17 10:00 (Pravachol) 40 mg HS PO 08/05/17 21:00 Vital Signs / I&O Vital Signs Date Time Temp Pulse Resp B/P (MAP) Pulse Ox O2 Delivery O2 Flow Rate FiO2 08/05/17 14:15 70 16 106/60 (75) 85 08/05/17 14:15 70 16 106/60 (75) 85 08/05/17 14:00 68 17 117/66 (83) 80 08/05/17 14:00 68 17 117/66 (83) 80 08/05/17 13:45 69 11 114/64 (81) 87 08/05/17 13:45 69 11 114/64 (81) 87 08/05/17 13:30 69 15 115/60 (78) 95 08/05/17 13:30 69 15 115/60 (78) 95 08/05/17 13:15 68 17 118/74 (89) 99 08/05/17 13:15 68 17 118/74 (89) 99 08/05/17 13:15 68 17 118/74 (89) 99 08/05/17 13:00 68 22 118/72 (87) 98 08/05/17 13:00 68 22 118/72 (87) 98 08/05/17 13:00 68 22 118/72 (87) 98 08/05/17 13:00 68 08/05/17 13:00 68 22 118/72 (87) 98 08/05/17 12:45 69 08/05/17 12:45 69 21 120/75 (90) 96 08/05/17 12:45 69 21 120/75 (90) 96 08/05/17 12:30 69 21 120/75 (90) 98 218 12:30 69 21 120/75 (90) 98 08/05/17 12:30 69 08/05/17 12:15 68 15 121/72 (88) 98 08/05/17 12:15 68 15 121/72 (88) 98 08/05/17 12:15 68 08/05/17 12:08 68 15 112/68 (83) 93 08/05/17 12:08 68 08/05/17 12:08 68 15 112/68 (83) 93 08/05/17 12:00 69 16 86 08/05/17 12:00 69 08/05/17 12:00 69 16 86 08/05/17 09:00 72 19 117/71 (86) 99 08/05/17 08:54 98 Nasal Cannula 3.00 08/05/17 08:00 74 23 110/67 (81) 99 08/05/17 08:00 72 08/05/17 07:00 93 Nasal Cannula 3.00 08/05/17 06:00 74 08/05/17 04:00 71 08/05/17 04:00 99.2 71 24 98/56 (70) 100 08/05/17 03:58 100 Nasal Cannula 3.00 08/05/17 02:00 72 08/05/17 01:06 98 Nasal Cannula 3.00 08/05/17 00:00 99.0 75 22 112/69 (83) 94 08/05/17 00:00 75 08/04/17 22:00 74 08/04/17 21:06 94 Nasal Cannula 2.00 08/04/17 20:00 80 12 96/54 (68) 96 08/04/17 20:00 80 08/04/17 19:00 94 Nasal Cannula 5.00 08/04/17 18:00 85 08/04/17 16:05 75 9 101/46 (64) 87 08/04/17 16:05 75 08/04/17 16:00 90 08/04/17 16:00 90 30 84 08/04/17 16:00 90 08/04/17 15:00 90 I/O 08/04/17 08/04/17 08/04/17 08/05/17 08/05/179/18 07:00 15:00 23:00 07:00 15:00 23:00 Intake Total 520 ml 50 ml Output Total 0 ml 2000 ml 0 ml Balance 0 ml -2000 ml 520 ml 50 ml Intake Oral 420 ml 50 ml IV Total 100 ml Output Urine Total 0 ml 0 ml Hemodialysis 2000 ml # Bowel Movements 0 0 Physical Exam GENERAL: NAD, AAOx3 SKIN: Warm and dry. HEAD: Atraumatic. Normocephalic. EYES: Pupils equal and round. No scleral icterus. No injection or drainage. ENT: No nasal bleeding or discharge. Mucous membranes pink and moist. NECK: Trachea midline. No JVD. CARDIOVASCULAR: Regular rate and rhythm. RESPIRATORY: No accessory muscle use. Clear to auscultation. Breath sounds equal bilaterally. GASTROINTESTINAL: Abdomen soft, non-tender, nondistended. Hepatic and splenic margins not palpable. MUSCULOSKELETAL: Extremities without clubbing, cyanosis, or edema. No obvious deformities. Right femoral, no hematoma NEUROLOGICAL: Awake and alert. No obvious cranial nerve deficits. Motor grossly within normal limits. Five out of 5 muscle strength in the arms and legs. Normal speech. PSYCHIATRIC: Appropriate mood and affect; insight and judgment normal. Laboratory Laboratory Tests Test 08/04/17 17:49 08/05/17 04:15 Activated Partial Thromboplast Time 48.6 SEC 42.8 SEC White Blood Count 9.4 TH/MM3 Red Blood Count 3.03 MIL/MM3 Hemoglobin 9.6 GM/DL Hematocrit 28.8 % Mean Corpuscular Volume 95.0 FL Mean Corpuscular Hemoglobin 31.6 PG Mean Corpuscular Hemoglobin Concent 33.3 % Red Cell Distribution Width 15.8 % Platelet Count 127 TH/MM3 Mean Platelet Volume 9.7 FL Neutrophils (%) (Auto) 83.6 % Lymphocytes (%) (Auto) 6.7 % Monocytes (%) (Auto) 9.3 % Eosinophils (%) (Auto) 0.0 % Basophils (%) (Auto) 0.4 % Neutrophils # (Auto) 7.8 TH/MM3 Lymphocytes # (Auto) 0.6 TH/MM3 Monocytes # (Auto) 0.9 TH/MM3 Eosinophils # (Auto) 0.0 TH/MM3 Basophils # (Auto) 0.0 TH/MM3 CBC Comment DIFF FINAL Differential Comment Prothrombin Time 21.1 SEC Prothromb Time International Ratio 2.1 RATIO Blood Urea Nitrogen 85 MG/DL Creatinine 10.34 MG/DL Random Glucose 209 MG/DL Calcium Level 9.4 MG/DL Sodium Level 138 MEQ/L Potassium Level 5.1 MEQ/L Chloride Level 96 MEQ/L Carbon Dioxide Level 29.3 MEQ/L Anion Gap 13 MEQ/L Estimat Glomerular Filtration Rate 5 ML/MIN Assessment and Plan Problem List: (1) Non-ST elevation [place] (NSTEMI) ICD Codes: I21.4 - Non-ST elevation (NSTEMI) myocardial infarction Status: Acute (2) Multi-vessel coronary artery stenosis ICD Codes: I25.10 - Atherosclerotic heart disease of [place] coronary artery without angina pectoris (3) ESRD on hemodialysis ICD Codes: N18.6 - End stage renal disease; Z99.2 - Dependence on renal dialysis (4) HTN (hypertension) ICD Codes: I10 - Essential (primary) hypertension Status: Chronic (5) Paroxysmal atrial fibrillation ICD Codes: I48.0 - Paroxysmal atrial fibrillation Status: Acute (6) Diabetes mellitus ICD Codes: E11.9 - Diabetes mellitus Status: Chronic (7) Ischemic cardiomyopathy ICD Codes: I25.5 - Ischemic cardiomyopathy Status: Chronic (8) Anemia ICD Codes: D64.9 - Anemia, unspecified Status: Chronic (9) Hyperlipidemia ICD Codes: E78.5 - Hyperlipidemia, unspecified Status: Chronic Assessment and Plan 1) NSTEMI PCI of LM/LAD/LCx with laser atherectomy/cutting balloon/POBA Con't ASA/Brilinta Heparin drip stopped 2) CAD with history of complex PCI PCI as above 3) Afib Will plan to hold Coumadin for planned procedure Possible restart tomorrow if stable 4) EF 40-45%, decreased from previous 5) Elevated INR Given vitamin K orally on 08/04/16 Problem Qualifiers (1) Diabetes mellitus: José Antonio May DO Aug 05, 2017 14:57
[2017-08-05] MEDS: cefTRIAXone INJ 1,000 MG in SODIUM CHLORIDE 0.9% INJ 100 ML IV SCH (16:28)
[2017-08-05] MEDS: PRAVASTATIN SOD 40 MG TAB PO SCH (19:38)
[2017-08-06] VITALS (28 sets, daily range): BP systolic 91–132; BP diastolic 55–76; PULSE 61–74; RESP 17–62; TEMP 98.7–99.2; O2SAT 85–100
[2017-08-06] MEDS: NITROGLYCERIN 2% OINT 1 GM PACKET TOPICAL SCH ×4 (00:19→17:37)
[2017-08-06] MEDS: INSULIN NovoLIN REGULAR SUPPLEMENTAL SCALE SQ SCH ×6 (04:00→20:19)
[2017-08-06 05:57] LABS: AUTOMATED NEUTROPHIL # 6.6 TH/MM3 (1.8-7.7); BASOPHIL # 0.1 TH/MM3 (0-0.2); BASOPHIL % 0.7 % (0.0-2.0); EOSINOPHIL % 0.1 % (0.0-4.0); HEMATOCRIT 27.5 % (39.0-51.0); HEMOGLOBIN 9.2 GM/DL (13.0-17.0); LYMPH % 7.3 % (9.0-44.0); LYMPHOCYTE # 0.6 TH/MM3 (1.0-4.8); MEAN CELL VOLUME 95.7 FL (80.0-100.0); MEAN CORPUSCULAR HEMOGLOBIN 31.9 PG (27.0-34.0); MEAN CORPUSCULAR HGB CONC 33.4 % (32.0-36.0); MEAN PLATELET VOLUME 9.8 FL (7.0-11.0); MONO % 8.6 % (0.0-8.0); MONOCYTE # 0.7 TH/MM3 (0-0.9); NEUT % 83.3 % (16.0-70.0); PLATELET COUNT 149 TH/MM3 (150-450); RED BLOOD COUNT 2.87 MIL/MM3 (4.50-5.90); RED CELL DISTRIBUTION WIDTH 15.4 % (11.6-17.2); WHITE BLOOD COUNT 7.9 TH/MM3 (4.0-11.0)
[2017-08-06] MEDS: ISOSORBIDE MONONITRATE 60 MG TAB PO SCH (06:03)
[2017-08-06 06:04] LABS: INTERNATIONAL NORMALIZED RATIO 1.6 RATIO; PROTHROMBIN TIME - PATIENT 15.9 SEC (9.8-11.6)
[2017-08-06 06:30] LABS: BICARBONATE 23.4 MEQ/L (21.0-32.0); CALCIUM 9.1 MG/DL (8.5-10.1)
[2017-08-06 07:35] LABS: CREATININE 12.64 MG/DL (0.60-1.30)
[2017-08-06] MEDS: CALCIUM ACETATE 667 MG CAP PO SCH ×3 (07:59→17:37)
[2017-08-06] MEDS: CARVEDILOL 6.25 MG TAB PO SCH ×2 (07:59→20:20)
--- NOTE | 2017-08-06 10:52 | MA ---
cc: JOSÉ ANTONIO LAI DO DATE: 08/05/2017. PROCEDURE PERFORMED: Left heart catheterization, coronary angiogram, complex case, moderate sedation 78 minutes, laser atherectomy / cutting balloon / balloon angioplasty of in-stent restenosis of left circumflex, balloon angioplasty of in-stent restenosis of LAD. MEDICATIONS: Versed 0.5 milligrams Fentanyl 25 micrograms Heparin 8700 units. CONTRAST: 100 mL. FLUOROSCOPY: 17.6 minutes SEDATION: Moderate sedation 78 minutes. ESTIMATED BLOOD LOSS: 10 cc. PROCEDURAL SUMMARY: Dandy Singleton is a pleasant 57-year-old male who previously underwent complex percutaneous coronary intervention and presented to the [facility] with a syncopal episode as well as an elevated troponin. Because of this, he was recommended cardiac catheterization. The risks, benefits, and alternatives were explained and he consented as such. DESCRIPTION OF THE PROCEDURE IN DETAIL: He was brought to the lab and prepped in the usual sterile fashion. Right femoral artery was accessed using a modified Seldinger technique and placement of a 5-Austrian sheath. This was easily aspirated and flushed. A JR-4 was advanced over a J-wire to the ascending aorta and across the aortic valve for measurement of left ventricular pressure. This was pulled back across the aortic valve showing no significant gradient of aortic stenosis. JR-4 was used for selective angiography of the right coronary artery system. This was exchanged out for a JL-4 which was used for selective angiography of the left coronary artery system. Please see notes below for intervention. FINDINGS: Left main: Distal 80% disease with in-stent restenosis at the bifurcation. It bifurcates into an LAD and circumflex. Left anterior descendin% stenosis in the proximal portion which is in-stent restenosis. Distally the stent is patent with better runoff to the distal left anterior descending than previous cardiac catheterization. Left circumflex: 95% ostial stenosis which is in-stent restenosis. Distally the stent is patent with no significant disease. Right coronary artery: normal-sized vessel with mild luminal irregularities from the proximal to midportion. Distally there are multiple subtotal occlusions of 99% with minimal flow into the PDA. LVEDP 25. INTERVENTION: Because of Dandy's significant disease as well as an elevated troponin, I thought attempting repeat intervention on his left main into his left anterior descending and circumflex was appropriate. A 5-Austrian sheath was exchanged out for a 6-Austrian sheath. The patient was given heparin as an anticoagulant. An EBU 3.5 guide was then advanced and engaged into the left main. A BMW wire was advanced into the left circumflex. A laser atherectomy catheter was used on the in-stent re-stenosis at 60/60 and then 80/80. A [place] wire was then advanced down the left anterior descending. A cutting balloon (2.75 x 6) was then used on the left circumflex stent. I then did a kissing balloon technique with a noncompliant balloon (3 x 8) in the left circumflex as well as a noncompliant balloon (3 x 15) in the left anterior descending. Final angiogram shows well apposed stents with some mild post-stenosis of 10%. EDITA III flow with no perforations or dissections. Wires were removed. Guide was removed over a J-wire. Due to the patient's elevated INR an Angio-Seal was used to close the femoral arteriotomy. 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 IMPRESSION: 1. NSTEMI. 2. Previous complex percutaneous coronary intervention status post repeat percutaneous coronary intervention of left main / left anterior descending / circumflex due to in-stent re-stenosis. 3. End-stage renal disease on hemodialysis. 4. Atrial fibrillation. RECOMMENDATIONS: 1. Mr. Singleton presented with syncope and NSTEMI and was found to have significant in-stent re-stenosis of his left main / left anterior descending / left circumflex, which has since been treated. 2. I have changed his Plavix to Brilinta. Although this is used with Coumadin, I think that it is appropriate due to the complexity of his coronary artery disease. 3. If stable in the morning, he will be re-started on Coumadin. 4. Once his INR is greater than 2, we will plan on stopping his aspirin and continuing on Brilinta and Coumadin. 5. He will continue on his beta darwin therapy. 6. He has had an issue with statins in the past including myositis. We will attempt to place him on low-dose Pravastatin. 7. No MERRILL inhibitor will be added at this time due to the patient's borderline hypotension. This can be reassessed during the hospitalization or outpatient for further considerations. 8. Further recommendations will be made based on the hospital course. Thank you for allowing me to see Dandy Singleton. If there are any questions, please do not hesitate to call. José Antonio RODRIGUEZ/GEMMA /9:31 AM /10:27 AM
[2017-08-06] MEDS: EPOETIN ALFA 10,000 UNITS/ML VIAL IV PUSH PRN (11:21)
[2017-08-06] MEDS: GELATIN 12 MM/7 MM FOAM TOP PRN (11:22)
--- NOTE | 2017-08-06 11:40 | HHI.NPPN ---
Subjective General Problems: Hypertension Renal Failure: End Stage Renal Disease History of Present Illness This is a 57-year-old man known to me from before with past medical history of hypertension, ischemic heart disease, end-stage renal disease on hemodialysis, chronic anemia, diabetes mellitus. He came to the hospital with complaint of chest pain and mild shortness of breath. I was called to see the patient because of management of dialysis. The patient has been on hemodialysis three times per week - Tuesday, and Tuesday, and according to the patient he has not been missing any treatment. He went for his dialysis on Tuesday. The patient's chest pain started off and on but according to him it was not very severe and he went to get gas in his car with his friend and at the gas station he collapsed and fell down and lost of consciousness for almost a minute. The patient was leaning against his car when he started feeling dizzy and he does not remember exactly what happened. The patient's friend called for help and the patient woke up. He was admitted in March and at that time he had a cardiac catheterization by Dr. May and it was found that he has severe ischemic heart disease and he was seen by Cardiac Surgery and it is thought that he is not a candidate for surgery and he underwent stenting done on April 22. The patient has some pain in his thigh area and then he was on one of the statins and it was stopped. It was initially reduced in the dose and then it was stopped by his primary physician with the thought of improving the pain, but he has some kind of cramping in the thigh and the legs sometime off and on. The patient denies missing any dialysis treatment recently, although he has still been gaining too much weight in between the treatments. Additional Remarks Patient seen during HD,no chest pain, no SOB, no leg cramps. Review of Systems Respiratory Respiratory Remarks Denies SOB Cardiovascular Cardiac Remarks Denies cp Gastrointestinal GI Remarks denies abdominal pain Objective Data Data 08/06/17 08/07/17 19:00 07:00 Output Total 3000 ml Balance -3000 ml Hemodialysis 3000 ml Vital Signs Date Time Temp Pulse Resp B/P (MAP) Pulse Ox O2 Delivery O2 Flow Rate FiO2 08/06/17 08:00 61 19 97 08/06/17 07:14 94 Nasal Cannula 3.00 08/06/17 07:00 97 Nasal Cannula 3.00 08/06/17 06:00 62 08/06/17 04:00 99.2 65 17 119/69 (86) 87 08/06/17 04:00 65 08/06/17 02:00 65 08/06/17 00:00 67 08/06/17 00:00 98.8 67 22 91/60 (70) 08/06/17 00:00 72 08/05/17 22:00 72 08/05/17 20:23 97 Nasal Cannula 3.00 08/05/17 20:00 69 08/05/17 20:00 99.0 69 19 97/59 (72) 97 08/05/17 19:00 89 Nasal Cannula 3.00 08/05/17 18:05 69 08/05/17 18:05 69 15 97/59 (72) 84 08/05/17 18:00 69 08/05/17 18:00 69 13 84 08/05/17 17:45 71 23 91 08/05/17 17:30 71 27 94 08/05/17 17:02 70 12 78 08/05/17 16:47 72 36 82 08/05/17 16:00 68 08/05/17 16:00 68 17 88 08/05/17 16:00 68 17 88 08/05/17 16:00 68 17 88 08/05/17 16:00 68 17 88 08/05/17 15:47 69 13 89 08/05/17 15:15 71 14 79 08/05/17 15:10 71 08/05/17 15:10 71 16 103/52 (69) 81 08/05/17 15:10 71 16 103/52 (69) 81 08/05/17 14:45 71 13 120/61 (80) 94 08/05/17 14:45 71 08/05/17 14:45 71 13 120/61 (80) 94 08/05/17 14:30 70 12 111/65 (80) 88 08/05/17 14:30 70 08/05/17 14:30 70 12 111/65 (80) 88 18 14:15 70 16 106/60 (75) 85 18 14:15 70 16 106/60 (75) 85 08/05/17 14:15 70 08/05/17 14:15 70 16 106/60 (75) 85 08/05/17 14:15 70 16 106/60 (75) 85 08/05/17 14:00 68 17 117/66 (83) 80 08/05/17 14:00 68 08/05/17 14:00 68 17 117/66 (83) 80 08/05/17 14:00 68 17 117/66 (83) 80 08/05/17 14:00 68 17 117/66 (83) 80 08/05/17 13:45 69 11 114/64 (81) 87 08/05/17 13:45 69 11 114/64 (81) 87 08/05/17 13:45 69 11 114/64 (81) 87 08/05/17 13:30 69 15 115/60 (78) 95 08/05/17 13:30 69 15 115/60 (78) 95 08/05/17 13:30 69 15 115/60 (78) 95 08/05/17 13:15 68 17 118/74 (89) 99 08/05/17 13:15 68 17 118/74 (89) 99 08/05/17 13:15 68 17 118/74 (89) 99 08/05/17 13:15 68 17 118/74 (89) 99 08/05/17 13:00 68 22 118/72 (87) 98 08/05/17 13:00 68 22 118/72 (87) 98 08/05/17 13:00 68 22 118/72 (87) 98 08/05/17 13:00 68 08/05/17 13:00 68 22 118/72 (87) 98 08/05/17 13:00 68 22 118/72 (87) 98 08/05/17 12:45 69 08/05/17 12:45 69 21 120/75 (90) 96 08/05/17 12:45 69 21 120/75 (90) 96 08/05/17 12:45 69 21 120/75 (90) 96 08/05/17 12:30 69 21 120/75 (90) 98 08/05/17 12:30 69 21 120/75 (90) 98 08/05/17 12:30 69 21 120/75 (90) 98 08/05/17 12:30 69 08/05/17 12:15 68 15 121/72 (88) 98 08/05/17 12:15 68 15 121/72 (88) 98 08/05/17 12:15 68 15 121/72 (88) 98 08/05/17 12:15 68 08/05/17 12:08 68 15 112/68 (83) 93 18 12:08 68 15 112/68 (83) 93 08/05/17 12:08 68 08/05/17 12:08 68 15 112/68 (83) 93 08/05/17 12:00 69 16 86 08/05/17 12:00 69 16 86 08/05/17 12:00 69 08/05/17 12:00 69 16 86 -: 08/06/17 0435 08/06/17 0435 Physical Exam General Appearance: No Acute Distress, Obese Eyes Eye Exam: Pupils Equal Throat Throat Exam: Oral Mucosa [place] & Moist Pulmonary Resp Exam: Breath Sounds Equal, No Distress, Decreased Bases Cardiology CV Exam: Regular Gastrointestinal/Abdomen GI Exam: Soft, Non-Tender, Bowel Sounds Present Genitourinary Exam: Flank Non-Tender Extremeties Extremities Exam: Trace Edema Neurologic Neuro Exam: Alert, Awake, Oriented Psychiatric Psych Exam: Appropriate Responses Assessment/Plan Discussed Condition With: Patient Assessment Summary: End Stage Renal Disease Electrolyte Assessment: Hyperkalemia Problem List: (1) ESRD on hemodialysis ICD Codes: N18.6 - End stage renal disease; Z99.2 - Dependence on renal dialysis Plan: Denies any chest pain. On heparin gtt. Leg cramps have improved with the addition of Mirapex. On Heparin gtt and CP free Now febrile. K was 5.6, HD now. BP is on lower side, will remove fluid as tolerated. Trying to get 3 liters. Has left pupil non reactive, Neurology consulted. (2) Diabetes mellitus ICD Codes: E11.9 - Diabetes mellitus Status: Chronic Plan: Maintain BS 140 mg/dl to 180 mg/dl (3) Non-ST elevation [place] (NSTEMI) ICD Codes: I21.4 - Non-ST elevation (NSTEMI) myocardial infarction Status: Acute Plan: On heparin gtt. No chest pain currently Plans for heart cath possible tomorrow (4) HTN (hypertension) ICD Codes: I10 - Essential (primary) hypertension Status: Chronic Plan: Well controlled Continue current regimen Problem Qualifiers (1) Diabetes mellitus: Jeana Corona MD Aug 06, 2017 11:40
--- NOTE | 2017-08-06 11:54 | PD.CARD.PN ---
Subjective Subjective Remarks Doing well overall Up out of bed yesterday On HD now Left pupil dilated and fixed Objective Medications Current Medications Medications (Trade) Dose Ordered Sig/Taj Route Start Time Stop Time Status Last Admin (Pepcid Inj) 10 mg Q12HR IV PUSH 08/01/17 21:00 08/05/17 19:38 (Atrovent Neb) 0.5 mg Q2HR NEB PRN INH 08/01/17 16:45 Miscellaneous Information 1 Q361D XX 08/01/17 16:45 (Chlorhexidine 2% Cloth) 3 pack Taper DAILY@04 TOP 08/02/17 04:00 07/29/18 03:59 08/05/17 08:00 (Chlorhexidine 2% Cloth) 3 pack UNSCH PRN TOP 08/01/17 16:45 (Janett-Colace) 1 tab BID PO 08/01/17 21:00 08/05/17 07:50 (Milk Of Magnesia Liq) 30 ml Q12H PRN PO 08/01/17 16:45 (Senokot) 17.2 mg Q12H PRN PO 08/01/17 16:45 08/04/17 12:33 (Dulcolax Supp) 10 mg DAILY PRN RECTAL 08/01/17 16:45 (Lactulose Liq) 30 ml DAILY PRN PO 08/01/17 16:45 08/04/17 17:15 (Cordarone) 200 mg BID PO 08/01/17 21:00 08/05/17 19:38 (Imdur) 60 mg DAILY@07 PO 08/02/17 07:00 08/06/17 06:03 (Nitrostat Sl) 0.4 mg UNSCH PRN SL 08/01/17 16:45 08/02/17 05:36 (Coreg) 6.25 mg Q12HR PO 08/01/17 17:30 08/05/17 19:38 Sodium Chloride 1,000 ml @ 0 mls/hr Q0M PRN OTHER 08/01/17 18:07 (Heparin Inj) 8,000 units UNSCH PRN IV FLUSH 08/01/17 18:15 Sodium Chloride 1,000 ml @ 200 mls/hr Q5H PRN IV 08/01/17 18:07 Sodium Chloride 1,000 ml @ 0 mls/hr Q0M PRN OTHER 08/01/17 18:07 (Mannitol Inj) 12.5 gm UNSCH PRN IV 08/01/17 18:15 Albumin Human 100 ml @ 60 mls/hr UNSCH PRN IV 08/01/17 18:15 (NS Flush) 5 ml UNSCH PRN IV FLUSH 08/01/17 18:15 (Heparin Inj) UNSCH PRN .XX 08/01/17 18:15 (Gentamicin Inj) 20 mg UNSCH PRN OTHER 08/01/17 18:15 (Zofran Inj) 4 mg UNSCH PRN IV PUSH 08/01/17 18:15 08/02/17 17:31 (Tylenol) 650 mg UNSCH PRN PO 08/01/17 18:15 08/03/17 12:19 (Benadryl) 25 mg UNSCH PRN PO 08/01/17 18:15 (Nitrostat Sl) 0.4 mg UNSCH PRN SL 08/01/17 18:15 (Catapres) 0.1 mg UNSCH PRN PO 08/01/17 18:15 (Epogen Inj) 4,000 units UNSCH PRN IV PUSH 08/01/17 18:15 08/06/17 11:21 (Gelfoam 12 Mm/7 Mm Top) 1 foam UNSCH PRN TOP 08/01/17 18:15 08/06/17 11:22 (Aspirin Chew) 81 mg DAILY PO 08/02/17 09:00 08/05/17 07:50 (Brilinta) 90 mg BID PO 08/01/17 21:00 08/05/17 19:38 (Nitroglycerin 2% Oint) 1 inch Q6HR TOPICAL 08/02/17 00:00 08/06/17 06:03 (Neurontin) 100 mg DAILY PO 08/02/17 11:15 08/05/17 07:50 (Mirapex) 0.25 mg BID PO 08/02/17 21:00 08/05/17 19:38 (D50w (Vial) Inj) 50 ml UNSCH PRN IV PUSH 08/03/17 08:00 (Glucagon Inj) 1 mg UNSCH PRN OTHER 08/03/17 08:00 (NovoLIN R SUPPLEMENTAL SCALE) 1 Q4HR SQ 08/03/17 08:00 08/06/17 04:00 (Phoslo) 2,001 mg TID PO 08/03/17 13:00 08/05/17 17:29 Ceftriaxone Sodium 1000 mg/ Sodium Chloride 100 ml @ 200 mls/hr Q24H IV 08/04/17 17:00 08/05/17 16:28 (Zithromax) 500 mg DAILY PO 08/04/17 16:30 08/05/17 07:50 (Pravachol) 40 mg HS PO 08/05/17 21:00 08/05/17 19:38 Vital Signs / I&O Vital Signs Date Time Temp Pulse Resp B/P (MAP) Pulse Ox O2 Delivery O2 Flow Rate FiO2 08/06/17 08:00 61 19 97 08/06/17 07:14 94 Nasal Cannula 3.00 08/06/17 07:00 97 Nasal Cannula 3.00 08/06/17 06:00 62 08/06/17 04:00 99.2 65 17 119/69 (86) 87 08/06/17 04:00 65 08/06/17 02:00 65 08/06/17 00:00 67 08/06/17 00:00 98.8 67 22 91/60 (70) 08/06/17 00:00 72 08/05/17 22:00 72 08/05/17 20:23 97 Nasal Cannula 3.00 08/05/17 20:00 69 08/05/17 20:00 99.0 69 19 97/59 (72) 97 08/05/17 19:00 89 Nasal Cannula 3.00 08/05/17 18:05 69 08/05/17 18:05 69 15 97/59 (72) 84 08/05/17 18:00 69 08/05/17 18:00 69 13 84 08/05/17 17:45 71 23 91 08/05/17 17:30 71 27 94 08/05/17 17:02 70 12 78 08/05/17 16:47 72 36 82 08/05/17 16:00 68 08/05/17 16:00 68 17 88 08/05/17 16:00 68 17 88 08/05/17 16:00 68 17 88 08/05/17 16:00 68 17 88 08/05/17 15:47 69 13 89 08/05/17 15:15 71 14 79 2/9/18 15:10 71 218 15:10 71 16 103/52 (69) 81 218 15:10 71 16 103/52 (69) 81 218 14:45 71 13 120/61 (80) 94 218 14:45 71 18 14:45 71 13 120/61 (80) 94 18 14:30 70 12 111/65 (80) 88 18 14:30 70 18 14:30 70 12 111/65 (80) 88 18 14:15 70 16 106/60 (75) 85 08/05/17 14:15 70 16 106/60 (75) 85 08/05/17 14:15 70 08/05/17 14:15 70 16 106/60 (75) 85 08/05/17 14:15 70 16 106/60 (75) 85 08/05/17 14:00 68 17 117/66 (83) 80 08/05/17 14:00 68 08/05/17 14:00 68 17 117/66 (83) 80 08/05/17 14:00 68 17 117/66 (83) 80 08/05/17 14:00 68 17 117/66 (83) 80 08/05/17 13:45 69 11 114/64 (81) 87 08/05/17 13:45 69 11 114/64 (81) 87 08/05/17 13:45 69 11 114/64 (81) 87 08/05/17 13:30 69 15 115/60 (78) 95 08/05/17 13:30 69 15 115/60 (78) 95 08/05/17 13:30 69 15 115/60 (78) 95 08/05/17 13:15 68 17 118/74 (89) 99 08/05/17 13:15 68 17 118/74 (89) 99 08/05/17 13:15 68 17 118/74 (89) 99 18 13:15 68 17 118/74 (89) 99 08/05/17 13:00 68 22 118/72 (87) 98 08/05/17 13:00 68 22 118/72 (87) 98 08/05/17 13:00 68 22 118/72 (87) 98 2/9/18 13:00 68 08/05/17 13:00 68 22 118/72 (87) 98 08/05/17 13:00 68 22 118/72 (87) 98 08/05/17 12:45 69 08/05/17 12:45 69 21 120/75 (90) 96 08/05/17 12:45 69 21 120/75 (90) 96 08/05/17 12:45 69 21 120/75 (90) 96 08/05/17 12:30 69 21 120/75 (90) 98 08/05/17 12:30 69 21 120/75 (90) 98 08/05/17 12:30 69 21 120/75 (90) 98 08/05/17 12:30 69 08/05/17 12:15 68 15 121/72 (88) 98 08/05/17 12:15 68 15 121/72 (88) 98 08/05/17 12:15 68 15 121/72 (88) 98 08/05/17 12:15 68 08/05/17 12:08 68 15 112/68 (83) 93 08/05/17 12:08 68 15 112/68 (83) 93 08/05/17 12:08 68 08/05/17 12:08 68 15 112/68 (83) 93 08/05/17 12:00 69 16 86 08/05/17 12:00 69 16 86 08/05/17 12:00 69 08/05/17 12:00 69 16 86 I/O 08/05/17 08/05/17 08/05/17 08/06/17 08/06/17 08/06/17 07:00 15:00 23:00 07:00 15:00 23:00 Intake Total 50 ml 620 ml 50 ml Output Total 0 ml 100 ml 0 ml 3000 ml Balance 50 ml 520 ml 50 ml -3000 ml Intake Oral 50 ml 520 ml 50 ml IV Total 100 ml Output Urine Total 0 ml 100 ml 0 ml Hemodialysis 3000 ml # Bowel Movements 0 1 0 Physical Exam GENERAL: NAD, AAOx3 SKIN: Warm and dry. HEAD: Atraumatic. Normocephalic. EYES: Left pupil dilated and fixed compared to the right. ENT: No nasal bleeding or discharge. Mucous membranes pink and moist. NECK: Trachea midline. No JVD. CARDIOVASCULAR: Regular rate and rhythm. RESPIRATORY: No accessory muscle use. Clear to auscultation. Breath sounds equal bilaterally. GASTROINTESTINAL: Abdomen soft, non-tender, nondistended. Hepatic and splenic margins not palpable. MUSCULOSKELETAL: Extremities without clubbing, cyanosis, or edema. No obvious deformities. Right femoral, no hematoma NEUROLOGICAL: Awake and alert. No obvious cranial nerve deficits. Motor grossly within normal limits. Five out of 5 muscle strength in the arms and legs. Normal speech. PSYCHIATRIC: Appropriate mood and affect; insight and judgment normal. Laboratory Laboratory Tests Test 08/06/17 04:35 White Blood Count 7.9 TH/MM3 Red Blood Count 2.87 MIL/MM3 Hemoglobin 9.2 GM/DL Hematocrit 27.5 % Mean Corpuscular Volume 95.7 FL Mean Corpuscular Hemoglobin 31.9 PG Mean Corpuscular Hemoglobin Concent 33.4 % Red Cell Distribution Width 15.4 % Platelet Count 149 TH/MM3 Mean Platelet Volume 9.8 FL Neutrophils (%) (Auto) 83.3 % Lymphocytes (%) (Auto) 7.3 % Monocytes (%) (Auto) 8.6 % Eosinophils (%) (Auto) 0.1 % Basophils (%) (Auto) 0.7 % Neutrophils # (Auto) 6.6 TH/MM3 Lymphocytes # (Auto) 0.6 TH/MM3 Monocytes # (Auto) 0.7 TH/MM3 Eosinophils # (Auto) 0.0 TH/MM3 Basophils # (Auto) 0.1 TH/MM3 CBC Comment DIFF FINAL Differential Comment Prothrombin Time 15.9 SEC Prothromb Time International Ratio 1.6 RATIO Activated Partial Thromboplast Time 32.4 SEC Blood Urea Nitrogen 115 MG/DL Creatinine 12.64 MG/DL Random Glucose 230 MG/DL Calcium Level 9.1 MG/DL Sodium Level 135 MEQ/L Potassium Level 5.6 MEQ/L Chloride Level 95 MEQ/L Carbon Dioxide Level 23.4 MEQ/L Anion Gap 17 MEQ/L Estimat Glomerular Filtration Rate 4 ML/MIN Assessment and Plan Problem List: (1) Non-ST elevation SD (NSTEMI) ICD Codes: I21.4 - Non-ST elevation (NSTEMI) myocardial infarction Status: Acute (2) Multi-vessel coronary artery stenosis ICD Codes: I25.10 - Atherosclerotic heart disease of [place] coronary artery without angina pectoris (3) ESRD on hemodialysis ICD Codes: N18.6 - End stage renal disease; Z99.2 - Dependence on renal dialysis (4) HTN (hypertension) ICD Codes: I10 - Essential (primary) hypertension Status: Chronic (5) Paroxysmal atrial fibrillation ICD Codes: I48.0 - Paroxysmal atrial fibrillation Status: Acute (6) Diabetes mellitus ICD Codes: E11.9 - Diabetes mellitus Status: Chronic (7) Ischemic cardiomyopathy ICD Codes: I25.5 - Ischemic cardiomyopathy Status: Chronic (8) Anemia ICD Codes: D64.9 - Anemia, unspecified Status: Chronic (9) Hyperlipidemia ICD Codes: E78.5 - Hyperlipidemia, unspecified Status: Chronic Assessment and Plan 1) NSTEMI PCI of LM/LAD/LCx with laser atherectomy/cutting balloon/POBA Con't ASA/Brilinta Heparin drip stopped 2) CAD with history of complex PCI PCI as above 3) Afib Coumadin on hold right now, will wait for neurology evaluation 4) EF 40-45%, decreased from previous 5) Elevated INR on admission 6) Left pupil dilated and fixed, not noticed before Possible secondary to Ipratropium nebulizer due to anti-cholinergic side effect especially if mask ill fitting directing toward the eye Should resolved in 24-48 hours if due to Ipratropium No other neurologic signs noted If further signs then Stat CT of the head Will consult Neurology to see if further work up needed Will hold Coumadin until stable to start Problem Qualifiers (1) Diabetes mellitus: José Antonio May DO Aug 06, 2017 11:54
[2017-08-06] MEDS: AZITHROMYCIN 250 MG TAB PO SCH (12:33)
[2017-08-06] MEDS: GABAPENTIN 100 MG CAP PO SCH (12:33)
[2017-08-06] MEDS: TICAGRELOR 90 MG TAB PO SCH ×2 (12:34→20:20)
[2017-08-06] MEDS: PRAMIPEXOLE DIHYDROCHLORIDE 0.25 MG TAB PO SCH ×2 (12:34→20:20)
[2017-08-06] MEDS: AMIODARONE 200 MG TAB PO SCH ×2 (12:34→20:20)
[2017-08-06] MEDS: DOCUSATE SODIUM 50 MG/SENNA 8.6 MG TAB PO SCH ×2 (12:34→20:20)
[2017-08-06] MEDS: ASPIRIN 81 MG CHEW TAB PO SCH (12:34)
[2017-08-06] MEDS: ONDANSETRON HCL 4 MG/2 ML VIAL IV PUSH PRN (13:23)
[2017-08-06] MEDS: ACETAMINOPHEN 325 MG TAB PO PRN (13:23)
--- NOTE | 2017-08-06 14:32 | MB ---
cc: FANNY KAUFMAN M.D. DATE OF CONSULTATION: 08/06/2017. REASON FOR CONSULTATION: Left pupil fixed and dilated. HISTORY OF PRESENT ILLNESS: This is a 57-year-old man with a history heart disease, diabetes, hypertension, end-stage renal disease on hemodialysis Tuesdays, and Saturdays who came in because of chest pain. He was taken to the [facility] and seen by cardiology, Dr. May. He is status post non-S-T elevated myocardial infarction. He had a percutaneous coronary intervention of the obtuse marginal branch / left anterior descending / left circumflex with laser atherectomy, cutting balloon and POBA. He is now on Atrovent and Brilinta and a heparin drip was stopped. He has a history of atrial fibrillation. He was on Coumadin but that has been held. I am asked to evaluate him for a dilated left pupil that was noticed today that was not there in the past. The patient states that he is not sure about the left eye. The only surgery he has had in the past was cataract surgery. He offers no complaints of eye pain, headache, double vision, loss of vision, weakness, numbness or tingling. PHYSICAL EXAMINATION: VITAL SIGNS: His vital signs currently are temperature 99.2, pulse 61, respiratory rate 19, blood pressure is 119/69, satting at 97% room air. NECK: The neck is supple. No bruits. HEART: Regular. NEUROLOGICAL EXAMINATION: He is awake and alert. He is oriented. He is fluent. His right pupil is reactive. His left pupil is about 6 mm and very sluggish. Extraocular muscles are normal. There is no pain with movement. There is no ptosis. There is no diplopia. Visual jacob are full. His face is symmetrical. Tongue midline. Motor-browne no lateralizing weakness. Cerebellar testing is normal. DTRs are 1+. Toes are downgoing. LABORATORY STUDIES: Hemoglobin is 9.2. His platelets are 149,000. Chemistries: Reviewed. His creatinine is 12.64, GFR of 4. Coag panel: INR currently is 1.6 and yesterday it was 2.1. PTT 32.4. RADIOLOGICAL STUDIES: There are no recent imaging studies of the brain. His last carotid ultrasound was in March and that was unremarkable. IMPRESSION: 1. Dilated left pupil. It does not look like a III nerve palsy; however, certainly can occur after medication effect. It is somewhat unusual to be unilateral. It is certainly possibly due to nebulizer treatment. However, given the patient's history of vascular disease, I would recommend getting a CT noncontrast of the brain as well as a carotid ultrasound. He cannot have an MRI due to the stents, at least for another few months or so. Continue current care. He is stable. If his CT does not show any hemorrhage, then go ahead and restart his anticoagulation. If he continues to be stable, then recommend he can be discharged home. If his pupil remains dilated, he should follow up with ophthalmology. MD ZHANNA Stevens/GEMMA /12:59 PM /2:20 PM
--- NOTE | 2017-08-06 14:55 | HHI.CCPN ---
Subjective Remarks/Hospital Course Patient is a 57-year-old male with past medical history of coronary artery disease, diabetes mellitus, hypertension, end-stage renal disease on hemodialysis Tuesday, , Tuesday. The patient presented to [facility] ED with midsternal chest pain described as sharp, throbbing pain , 5/10 on the pain scale. The pain is localized. The patient also reports shortness of breath associated with his chest discomfort. He denies any nausea , vomiting or abdominal pain. In addition he denies any orthopnea, PND or edema of lower extremities. His laboratory data showed troponin of 13.9 with a total CK 358 and MB percentage 4.1. In addition his creatinine level is 11.0 with a potassium 4.7. A chest x-ray in the ED showed compensated cardiomegaly otherwise negative. EKG showed sinus bradycardia with first degree AV block, rate of 59 beats per minute, findings similar to prior EKG from March. He is on Coumadin and Plavix at home and his INR is therapeutic at 2.6. The patient was last hospitalized on April 12, 2017 for NSTEMI as well and at that time he underwent cardiac catheterization by Dr. May with multiple drug-eluting stents placed. His cath showed moderate to severe coronary artery disease with EF of 20%. He was evaluated by cardiothoracic surgery at that time for evaluation of CABG however, he was turned down due to no target vessels. The patient denies any fever, chills, cough or any constitutional symptoms. 08/02 No events overnight. Patient is lying in bed in NAD. Started on Heparin drip. 08/03 No events overnight. s/p HD yesterday with removal 3L. On Heparin drip. T; 101.7 last night. 08/04 No events overnight for HD today and possible cardiac cath. On Heparin drip. Patient denies any chest pain on 3L oxygen. 08/05 Patient denies any CP/SOB, for cardiac cath today. On Heparin drip. 08/06: Report from RN this a.m., noted left eye pupillary dilatation, new onset. Patient previously noted to have cataract extraction with lens implant in the left eye. No reactivity of left pupil. No visual disturbance noted, from ophthalmology also has been consulted. The patient previously was on heparin for an STEMI, which was discussed continued upon going to the [facility] on in the a.m.. Neurology was consulted CT of the brain pending, carotid ultrasound pending. Patient reports no acute distress, alert and oriented, no chest pain. Patient tolerating diet. Objective Vital Signs Date Time Temp Pulse Resp B/P (MAP) Pulse Ox O2 Delivery O2 Flow Rate FiO2 08/06/17 14:01 68 08/06/17 13:00 62 124/73 (90) 98 08/06/17 07:14 Nasal Cannula 3.00 08/06/17 04:00 99.2 08/04/17 07:00 97 Intake and Output 08/06/17 08/06/17 08/07/17 08:00 16:00 00:00 Intake Total 50 ml Output Total 0 ml 3000 ml Balance 50 ml -3000 ml Result Diagram: 08/06/17 0435 08/06/17 0435 Imaging Last Impressions Chest X-Ray 08/04/17 0000 Signed Impressions: Service Date/Time: July 15:44 - CONCLUSION: Developing perihilar parenchymal opacity, left worse than right Noam Sparks MD Objective Remarks GENERAL: Well-developed well-nourished obese elderly male sitting up in bed eating ice cream in NAD SKIN: Warm and dry. HEAD: Normocephalic. EYES: No scleral icterus. No injection or drainage. NECK: Supple, trachea midline. No JVD or lymphadenopathy. CARDIOVASCULAR: Regular rate and rhythm without murmurs, gallops, or rubs. RESPIRATORY: Breath sounds equal bilaterally. No accessory muscle use. GASTROINTESTINAL: Abdomen soft, non-tender, nondistended. MUSCULOSKELETAL: No cyanosis, or edema. Neuro: Awake and alert A/P Assessment and Plan 1. Resp Insuff 2. NSTEMI 3. ESRD 4. Coagulopathy 5. Diabetes mellitus. 6. Hypertension. 7. Hyperlipidemia. 7. Obesity. 8. Left pupil dilatation Plan Neuro: Monitor neuro status. Awake and alert Neurology consulted-Dr. Rich CT of the brain without contrast follow-up result Carotid ultrasound follow-up results Pulm: Continue with oxygen maintain sats above 92%. Bronchodilators O2 at 2 L nasal cannula CV: Monitor HR and BP and maintain MAP >65mmHg. Trop is trending down. Echo showed EF 40-45% Cards is following- Dr. May. Heparin infusion discontinued 08/05. Plan for initiation of Coumadin dependent upon CT brain results s/p cardiac catheterization in March 2017 with multiple drug eluding stents placed. The patient was turned down by CT surgery for CABG. For cardiac cath today . On Amiodarone 200 mg b.i.d., Imdur 60 mg daily, Brilinta, ASA, NTG top 1"Q6 : Monitor renal function and avoid nephrotoxins. Renal- Dr. Corona On HD T, ,S s/p HD yesterday w removal 3L. GI: On Pepcid 20 mg q.12 for GI prophylaxis. Renal diet ID: [id number] ( [id number])Monitor for signs of infections( fever and WBC). Follow up on BC -NGTD check sputum cx Heme: Monitor CBC and coags- on Heparin drip Endo: SSI with Accu-Cheks for glycemic control. GI prophylaxis with Pepcid and DVT prophylaxis with SCDs, anticoagulation to be initiated by cardiology, after CT brain and carotid ultrasound results Dispo: Discussed with family and [employer] at bedside. All questions answered. Level 2 Physician Jil Jordan MD Aug 06, 2017 14:55
--- NOTE | 2017-08-06 16:47 | RADRPT ---
EXAM DATE/TIME: 08/06/2017 15:03 [facility] COMPARISON: US CAROTID ARTERIES, April 13, 2017, 17:22. EXTERNAL COMPARISON : [facility], CAROTID BILATERAL, October 30, 2012 INDICATIONS : Cerebrovascular accident. MEDICAL HISTORY : Myocardial infarction. Congestive heart failure. Hypercholesterolemia. Peripheral neuropathy. Syncope . Diabetes. HyperlipIdemia. HTN. Renal failure. Anticoagulant therapy, Heparin. SURGICAL HISTORY : Coronary artery stent. Cataract extraction. AV shunt. Cardiac cath. Hemodialysis. Right fifth toe removed. ENCOUNTER: Subsequent ACUITY: 1 day PAIN SCORE: 0/10 LOCATION: Bilateral neck PEAK SYSTOLIC VELOCITIES (cm/sec): ICA/CCA RATIO: Right: 1.1 Left: 1.1 ICA: Right: 90 Left: 108 CCA: Right: 80 Left: 101 ECA: Right: 90 Left: 108 VERTEBRAL: Right: 53 antegrade Left: 49 antegrade Elevated flow velocities and ICA/CCA ratios have been found to correlate with increased degrees of vessel stenosis, calculated as percentage of diameter relative to a normal segment of distal ICA/CCA FINDINGS: RIGHT CAROTID: Mild calcified plaque in the carotid bulb. No significant stenosis is visualized. The waveforms are within normal limits. LEFT CAROTID: Noncalcified plaque in the carotid bulb and distal common carotid artery. No significant stenosis is visualized. The waveforms are within normal limits. VERTEBRAL ARTERIES: Antegrade flow is seen in both vertebral arteries. MISCELLANEOUS: None. CONCLUSION: Mild plaque formation with hemodynamic profile characteristic of less than 50% stenosis bilaterally. Julio Houser MD on August 06, 2017 at 16:42 Board Certified Radiologist. This report was verified electronically.
[2017-08-06] MEDS: cefTRIAXone INJ 1,000 MG in SODIUM CHLORIDE 0.9% INJ 100 ML IV SCH (17:37)
[2017-08-06] MEDS: PRAVASTATIN SOD 40 MG TAB PO SCH (20:20)
[2017-08-06] MEDS: FAMOTIDINE 20 MG/2 ML VIAL IV PUSH SCH (20:20)
--- NOTE | 2017-08-06 21:53 | RADRPT ---
EXAM DATE/TIME: 08/06/2017 21:41 [facility] COMPARISON: CT BRAIN W/O CONTRAST, April 05, 2014, 21:29. INDICATIONS : Uneven pupils. RADIATION DOSE: 48.85 CTDIvol (mGy) MEDICAL HISTORY : Cardiovascular disease. Renal failure, chronic. Hypertension. SURGICAL HISTORY : AV shunt ENCOUNTER: Initial ACUITY: 1 day PAIN SCALE: 0/10 LOCATION: Bilateral cranial TECHNIQUE: Multiple contiguous axial images were obtained of the head. Using automated exposure control and adj ustment of the mA and/or kV according to patient size, radiation dose was kept as low as reasonably a chievable to obtain optimal diagnostic quality images. DICOM format image data is available electro nically for review and comparison. FINDINGS: This study was performed using tabletop technique. CEREBRUM: The ventricles are normal for age. No evidence of midline shift, mass lesion, hemorrhage or acute in farction. No extra-axial fluid collections are seen. POSTERIOR FOSSA: The cerebellum and brainstem are intact. The 4th ventricle is midline. The cerebellopontine angle i s unremarkable. EXTRACRANIAL: The visualized portion of the orbits is intact. SKULL: The calvaria is intact. No evidence of skull fracture. CONCLUSION: Negative noncontrast CT brain. Julio Houser MD on August 06, 2017 at 21:49 Board Certified Radiologist. This report was verified electronically.
[2017-08-07] VITALS (10 sets, daily range): BP systolic 109–116; BP diastolic 58–64; PULSE 55–60; RESP 18–25; TEMP 97.5–98.5; O2SAT 95–99
[2017-08-07] MEDS: NITROGLYCERIN 2% OINT 1 GM PACKET TOPICAL SCH ×4 (01:06→17:35)
[2017-08-07] MEDS: INSULIN NovoLIN REGULAR SUPPLEMENTAL SCALE SQ SCH ×6 (01:06→20:00)
[2017-08-07] MEDS: CHLORHEXIDINE GLUCONATE 2 % 1 PACK (2 CLOTHS) TOP SCH (04:00)
[2017-08-07] MEDS: ISOSORBIDE MONONITRATE 60 MG TAB PO SCH (04:37)
[2017-08-07 05:38] LABS: HEMATOCRIT 29.2 % (39.0-51.0); HEMOGLOBIN 9.7 GM/DL (13.0-17.0); MEAN CELL VOLUME 95.6 FL (80.0-100.0); MEAN CORPUSCULAR HEMOGLOBIN 31.7 PG (27.0-34.0); MEAN CORPUSCULAR HGB CONC 33.1 % (32.0-36.0); MEAN PLATELET VOLUME 9.4 FL (7.0-11.0); PLATELET COUNT 163 TH/MM3 (150-450); RED BLOOD COUNT 3.05 MIL/MM3 (4.50-5.90); RED CELL DISTRIBUTION WIDTH 15.7 % (11.6-17.2); WHITE BLOOD COUNT 6.3 TH/MM3 (4.0-11.0)
[2017-08-07 05:54] LABS: INTERNATIONAL NORMALIZED RATIO 1.5 RATIO; PROTHROMBIN TIME - PATIENT 14.7 SEC (9.8-11.6)
[2017-08-07 06:01] LABS: BICARBONATE 32.9 MEQ/L (21.0-32.0); CALCIUM 8.9 MG/DL (8.5-10.1); MAGNESIUM 2.9 MG/DL (1.5-2.5)
[2017-08-07 06:03] LABS: CREATININE 10.57 MG/DL (0.60-1.30)
--- NOTE | 2017-08-07 06:06 | HHI.CCPN ---
Subjective Remarks/Hospital Course Patient is a 57-year-old male with past medical history of coronary artery disease, diabetes mellitus, hypertension, end-stage renal disease on hemodialysis Tuesday, , Tuesday. The patient presented to [facility] ED with midsternal chest pain described as sharp, throbbing pain , 5/10 on the pain scale. The pain is localized. The patient also reports shortness of breath associated with his chest discomfort. He denies any nausea , vomiting or abdominal pain. In addition he denies any orthopnea, PND or edema of lower extremities. His laboratory data showed troponin of 13.9 with a total CK 358 and MB percentage 4.1. In addition his creatinine level is 11.0 with a potassium 4.7. A chest x-ray in the ED showed compensated cardiomegaly otherwise negative. EKG showed sinus bradycardia with first degree AV block, rate of 59 beats per minute, findings similar to prior EKG from March. He is on Coumadin and Plavix at home and his INR is therapeutic at 2.6. The patient was last hospitalized on April 12, 2017 for NSTEMI as well and at that time he underwent cardiac catheterization by Dr. May with multiple drug-eluting stents placed. His cath showed moderate to severe coronary artery disease with EF of 20%. He was evaluated by cardiothoracic surgery at that time for evaluation of CABG however, he was turned down due to no target vessels. The patient denies any fever, chills, cough or any constitutional symptoms. 08/02 No events overnight. Patient is lying in bed in NAD. Started on Heparin drip. 08/03 No events overnight. s/p HD yesterday with removal 3L. On Heparin drip. T; 101.7 last night. 08/04 No events overnight for HD today and possible cardiac cath. On Heparin drip. Patient denies any chest pain on 3L oxygen. 08/05 Patient denies any CP/SOB, for cardiac cath today. On Heparin drip. 08/06: Report from RN this a.m., noted left eye pupillary dilatation, new onset. Patient previously noted to have cataract extraction with lens implant in the left eye. No reactivity of left pupil. No visual disturbance noted, from ophthalmology also has been consulted. The patient previously was on heparin for an STEMI, which was discussed continued upon going to the Bio[facility] on in the a.m.. Neurology was consulted CT of the brain pending, carotid ultrasound pending. Patient reports no acute distress, alert and oriented, no chest pain. Patient tolerating diet. 08/07: The patient underwent CT scan of the brain and carotid ultrasound last night. Coumadin initiated this a.m.. As previously described patient is status post cataract extraction of that left eye with intraocular lens implant. No visual changes/disturbances. Patient denied chest pain. Objective Vital Signs Date Time Temp Pulse Resp B/P (MAP) Pulse Ox O2 Delivery O2 Flow Rate FiO2 08/07/17 06:00 56 08/07/17 04:00 98.2 22 109/63 (78) 96 08/06/17 20:18 Nasal Cannula 2.00 08/04/17 07:00 97 Result Diagram: 08/07/17 0459 08/06/17 0435 Imaging Last Impressions Chest X-Ray 08/04/17 0000 Signed Impressions: Service Date/Time: July 15:44 - CONCLUSION: Developing perihilar parenchymal opacity, left worse than right Noam Sparks MD Objective Remarks GENERAL: Well-developed well-nourished obese elderly male, sleeping in NAD SKIN: Warm and dry. HEAD: Normocephalic. EYES: No scleral icterus. No injection or drainage. NECK: Supple, trachea midline. No JVD or lymphadenopathy. CARDIOVASCULAR: Regular rate and rhythm without murmurs, gallops, or rubs. RESPIRATORY: Breath sounds equal bilaterally. No accessory muscle use. GASTROINTESTINAL: Abdomen soft, non-tender, nondistended, protuberant. Normoactive bowel sounds MUSCULOSKELETAL: No cyanosis, or edema. The bruit and thrill right lower forearm AVF Neuro: Awake and alert. GCS 15 A/P Assessment and Plan 1. Resp Insuff 2. NSTEMI 3. ESRD 4. Coagulopathy 5. Diabetes mellitus. 6. Hypertension. 7. Hyperlipidemia. 7. Obesity. 8. Left pupil dilatation Plan Neuro: Monitor neuro status. Awake and alert Neurology consulted-Dr. Rich 08/06 CT of the brain without contrast -negative 08/06 Carotid ultrasound -less than 50% stenosis bilaterally Pulm: Continue with oxygen maintain sats above 92%. Bronchodilators O2 at 2 L nasal cannula-and tingling to wean off CV: Monitor HR and BP and maintain MAP >65mmHg. Trop is trending down. Echo showed EF 40-45% Cards is following- Dr. May. Heparin infusion discontinued 08/05. Plan for initiation of Coumadin dependent upon CT brain results s/p cardiac catheterization in March 2017 with multiple drug eluding stents placed. The patient was turned down by CT surgery for CABG. For cardiac cath today . On Amiodarone 200 mg b.i.d., Imdur 60 mg daily, Brilinta, ASA, NTG top 1"Q6 08/07 Begin Coumadin : Monitor renal function and avoid nephrotoxins. Renal- Dr. Corona On HD T, TH,S s/p HD yesterday w removal 3L. GI: On Pepcid 20 mg q.12 for GI prophylaxis. Renal diet ID: [id number] ( [id number])Monitor for signs of infections( fever and WBC). Follow up on BC -NGTD check sputum cx Heme: Monitor CBC and coags- dominant therapy initiated Endo: SSI with Accu-Cheks for glycemic control. GI prophylaxis with Pepcid and DVT prophylaxis with SCDs, anticoagulation initiated Dispo: Discussed with family and [employer] at bedside. All questions answered. Plan transfer to [facility] in a.m.. Plan transfer to floor Level 2 Physician Jil Jordan MD Aug 07, 2017 06:06
[2017-08-07 06:14] LABS: PHOSPHORUS 6.4 MG/DL (2.5-4.9)
[2017-08-07] MEDS: TICAGRELOR 90 MG TAB PO SCH ×2 (09:00→20:32)
[2017-08-07] MEDS: DOCUSATE SODIUM 50 MG/SENNA 8.6 MG TAB PO SCH ×2 (09:29→20:33)
[2017-08-07] MEDS: AZITHROMYCIN 250 MG TAB PO SCH (09:29)
[2017-08-07] MEDS: CALCIUM ACETATE 667 MG CAP PO SCH ×3 (09:30→17:35)
[2017-08-07] MEDS: CARVEDILOL 6.25 MG TAB PO SCH ×2 (09:30→20:32)
[2017-08-07] MEDS: FAMOTIDINE 20 MG/2 ML VIAL IV PUSH SCH ×2 (09:30→20:32)
[2017-08-07] MEDS: ASPIRIN 81 MG CHEW TAB PO SCH (09:30)
[2017-08-07] MEDS: GABAPENTIN 100 MG CAP PO SCH (09:30)
[2017-08-07] MEDS: PRAMIPEXOLE DIHYDROCHLORIDE 0.25 MG TAB PO SCH ×3 (09:30→21:00)
[2017-08-07] MEDS: AMIODARONE 200 MG TAB PO SCH ×2 (09:30→20:32)
--- NOTE | 2017-08-07 10:43 | HHI.NPPN ---
Subjective General Problems: Hypertension Renal Failure: End Stage Renal Disease History of Present Illness This is a 57-year-old man known to me from before with past medical history of hypertension, ischemic heart disease, end-stage renal disease on hemodialysis, chronic anemia, diabetes mellitus. He came to the hospital with complaint of chest pain and mild shortness of breath. I was called to see the patient because of management of dialysis. The patient has been on hemodialysis three times per week - Tuesday, and Tuesday, and according to the patient he has not been missing any treatment. He went for his dialysis on Tuesday. The patient's chest pain started off and on but according to him it was not very severe and he went to get gas in his car with his friend and at the gas station he collapsed and fell down and lost of consciousness for almost a minute. The patient was leaning against his car when he started feeling dizzy and he does not remember exactly what happened. The patient's friend called for help and the patient woke up. He was admitted in March and at that time he had a cardiac catheterization by Dr. May and it was found that he has severe ischemic heart disease and he was seen by Cardiac Surgery and it is thought that he is not a candidate for surgery and he underwent stenting done on April 22. The patient has some pain in his thigh area and then he was on one of the statins and it was stopped. It was initially reduced in the dose and then it was stopped by his primary physician with the thought of improving the pain, but he has some kind of cramping in the thigh and the legs sometime off and on. The patient denies missing any dialysis treatment recently, although he has still been gaining too much weight in between the treatments. Additional Remarks Patient is alert, mild SOB, no chest pain. Review of Systems Respiratory Respiratory Remarks Denies SOB Cardiovascular Cardiac Remarks Denies cp Gastrointestinal GI Remarks denies abdominal pain Objective Data Data Vital Signs Date Time Temp Pulse Resp B/P (MAP) Pulse Ox O2 Delivery O2 Flow Rate FiO2 08/07/17 08:19 97 Nasal Cannula 2.00 08/07/17 06:00 56 08/07/17 04:00 98.2 57 22 109/63 (78) 96 08/07/17 04:00 57 08/07/17 02:00 55 08/07/17 00:00 59 08/07/17 00:00 97.8 59 24 110/60 (77) 96 08/06/17 22:00 62 08/06/17 20:18 100 Nasal Cannula 2.00 08/06/17 20:00 98.7 65 33 132/76 (94) 100 08/06/17 20:00 65 08/06/17 19:00 97 Nasal Cannula 2.00 08/06/17 17:01 68 08/06/17 16:00 66 08/06/17 16:00 66 27 97/55 (69) 85 08/06/17 14:01 68 08/06/17 14:00 68 08/06/17 13:00 74 62 124/73 (90) 98 08/06/17 13:00 74 08/06/17 12:00 68 08/06/17 12:00 68 18 119/70 (86) 99 08/06/17 11:45 68 27 117/66 (83) 100 08/06/17 11:45 68 08/06/17 11:30 68 24 126/71 (89) 100 08/06/17 11:30 68 08/06/17 11:15 66 08/06/17 11:15 66 21 123/70 (87) 99 08/06/17 11:00 66 08/06/17 11:00 66 24 122/67 (85) 100 08/06/17 10:45 65 08/06/17 10:45 65 22 118/65 (82) 98 -: 08/07/17 0459 08/07/17 0459 Physical Exam General Appearance: No Acute Distress, Obese Eyes Eye Exam: Pupils Equal Throat Throat Exam: Oral Mucosa Somis & Moist Pulmonary Resp Exam: Breath Sounds Equal, No Distress, Decreased Bases Cardiology CV Exam: Regular Gastrointestinal/Abdomen GI Exam: Soft, Non-Tender, Bowel Sounds Present Genitourinary Exam: Flank Non-Tender Extremeties Extremities Exam: Trace Edema Neurologic Neuro Exam: Alert, Awake, Oriented Psychiatric Psych Exam: Appropriate Responses Assessment/Plan Discussed Condition With: Patient Assessment Summary: End Stage Renal Disease Electrolyte Assessment: Hyperkalemia Problem List: (1) ESRD on hemodialysis ICD Codes: N18.6 - End stage renal disease; Z99.2 - Dependence on renal dialysis Plan: Denies any chest pain. On heparin gtt. Leg cramps have improved with the addition of Mirapex. On Heparin gtt and CP free Now febrile. BP is stable. Has left pupil non reactive, Neurology consult noted. For transfer out of ICU. (2) Diabetes mellitus ICD Codes: E11.9 - Diabetes mellitus Status: Chronic Plan: Maintain BS 140 mg/dl to 180 mg/dl (3) Non-ST elevation [place] (NSTEMI) ICD Codes: I21.4 - Non-ST elevation (NSTEMI) myocardial infarction Status: Acute Plan: On heparin gtt. No chest pain currently Plans for heart cath possible tomorrow (4) HTN (hypertension) ICD Codes: I10 - Essential (primary) hypertension Status: Chronic Plan: Well controlled Continue current regimen Problem Qualifiers (1) Diabetes mellitus: Jeana Corona MD Aug 07, 2017 10:43
[2017-08-07] MEDS ORDERED: POLYETHYLENE GLYCOL 17 GM PKG PO ONE (12:00)
--- NOTE | 2017-08-07 12:13 | PD.CARD.PN ---
Subjective Subjective Remarks Doing well overall Up out of bed Left pupil dilated, mildly better, asymptomatic Objective Medications Current Medications Medications (Trade) Dose Ordered Sig/Taj Route Start Time Stop Time Status Last Admin (Pepcid Inj) 10 mg Q12HR IV PUSH 08/01/17 21:00 08/07/17 09:30 (Atrovent Neb) 0.5 mg Q2HR NEB PRN INH 08/01/17 16:45 Miscellaneous Information 1 Q361D XX 08/01/17 16:45 (Chlorhexidine 2% Cloth) Taper DAILY@04 TOP 08/02/17 04:00 07/29/18 03:59 08/07/17 04:00 (Chlorhexidine 2% Cloth) 3 pack UNSCH PRN TOP 08/01/17 16:45 (Janett-Colace) 1 tab BID PO 08/01/17 21:00 08/07/17 09:29 (Milk Of Magnesia Liq) 30 ml Q12H PRN PO 08/01/17 16:45 08/06/17 12:35 (Senokot) 17.2 mg Q12H PRN PO 08/01/17 16:45 08/04/17 12:33 (Dulcolax Supp) 10 mg DAILY PRN RECTAL 08/01/17 16:45 (Lactulose Liq) 30 ml DAILY PRN PO 08/01/17 16:45 08/04/17 17:15 (Cordarone) 200 mg BID PO 08/01/17 21:00 08/07/17 09:30 (Imdur) 60 mg DAILY@07 PO 08/02/17 07:00 08/07/17 04:37 (Nitrostat Sl) 0.4 mg UNSCH PRN SL 08/01/17 16:45 08/02/17 05:36 (Coreg) 6.25 mg Q12HR PO 08/01/17 17:30 08/07/17 09:30 Sodium Chloride 1,000 ml @ 0 mls/hr Q0M PRN OTHER 08/01/17 18:07 (Heparin Inj) 8,000 units UNSCH PRN IV FLUSH 08/01/17 18:15 Sodium Chloride 1,000 ml @ 200 mls/hr Q5H PRN IV 08/01/17 18:07 Sodium Chloride 1,000 ml @ 0 mls/hr Q0M PRN OTHER 08/01/17 18:07 (Mannitol Inj) 12.5 gm UNSCH PRN IV 08/01/17 18:15 Albumin Human 100 ml @ 60 mls/hr UNSCH PRN IV 08/01/17 18:15 (NS Flush) 5 ml UNSCH PRN IV FLUSH 08/01/17 18:15 (Heparin Inj) UNSCH PRN .XX 08/01/17 18:15 (Gentamicin Inj) 20 mg UNSCH PRN OTHER 08/01/17 18:15 (Zofran Inj) 4 mg UNSCH PRN IV PUSH 08/01/17 18:15 08/06/17 13:23 (Tylenol) 650 mg UNSCH PRN PO 08/01/17 18:15 08/06/17 13:23 (Benadryl) 25 mg UNSCH PRN PO 08/01/17 18:15 (Nitrostat Sl) 0.4 mg UNSCH PRN SL 08/01/17 18:15 (Catapres) 0.1 mg UNSCH PRN PO 08/01/17 18:15 (Epogen Inj) 4,000 units UNSCH PRN IV PUSH 08/01/17 18:15 08/06/17 11:21 (Gelfoam 12 Mm/7 Mm Top) 1 foam UNSCH PRN TOP 08/01/17 18:15 08/06/17 11:22 (Aspirin Chew) 81 mg DAILY PO 08/02/17 09:00 08/07/17 09:30 (Brilinta) 90 mg BID PO 08/01/17 21:00 08/07/17 09:00 (Nitroglycerin 2% Oint) 1 inch Q6HR TOPICAL 08/02/17 00:00 08/07/17 04:36 (Neurontin) 100 mg DAILY PO 08/02/17 11:15 08/07/17 09:30 (Mirapex) 0.25 mg BID PO 08/02/17 21:00 08/07/17 10:10 (D50w (Vial) Inj) 50 ml UNSCH PRN IV PUSH 08/03/17 08:00 (Glucagon Inj) 1 mg UNSCH PRN OTHER 08/03/17 08:00 (NovoLIN R SUPPLEMENTAL SCALE) 1 Q4HR SQ 2/7/18 08:00 08/07/17 09:31 (Phoslo) 2,001 mg TID PO 08/03/17 13:00 08/07/17 09:30 Ceftriaxone Sodium 1000 mg/ Sodium Chloride 100 ml @ 200 mls/hr Q24H IV 08/04/17 17:00 08/06/17 17:37 (Zithromax) 500 mg DAILY PO 08/04/17 16:30 08/07/17 09:29 (Pravachol) 40 mg HS PO 08/05/17 21:00 08/06/17 20:20 Pharmacy Profile Note 0 ml @ 0 mls/hr UNSCH OTHER 08/07/17 07:30 (Coumadin) 5 mg DAILY@1600 PO 08/07/17 16:00 Vital Signs / I&O Vital Signs Date Time Temp Pulse Resp B/P (MAP) Pulse Ox O2 Delivery O2 Flow Rate FiO2 08/07/17 08:19 97 Nasal Cannula 2.00 08/07/17 08:00 97.5 56 19 111/59 (76) 95 08/07/17 08:00 56 08/07/17 08:00 Nasal Cannula 2.00 08/07/17 06:00 56 08/07/17 04:00 98.2 57 22 109/63 (78) 96 08/07/17 04:00 57 08/07/17 02:00 55 08/07/17 00:00 59 08/07/17 00:00 97.8 59 24 110/60 (77) 96 08/06/17 22:00 62 08/06/17 20:18 100 Nasal Cannula 2.00 08/06/17 20:00 98.7 65 33 132/76 (94) 100 08/06/17 20:00 65 08/06/17 19:00 97 Nasal Cannula 2.00 08/06/17 17:01 68 08/06/17 16:00 66 08/06/17 16:00 66 27 97/55 (69) 85 08/06/17 14:01 68 08/06/17 14:00 68 08/06/17 13:00 74 62 124/73 (90) 98 08/06/17 13:00 74 I/O 08/06/17 08/06/17 08/06/17 08/07/17 08/07/17 08/07/17 07:00 15:00 23:00 07:00 15:00 23:00 Intake Total 50 ml 320 ml 240 ml Output Total 0 ml 3000 ml Balance 50 ml -3000 ml 320 ml 240 ml Intake Oral 50 ml 320 ml 240 ml Output Urine Total 0 ml Hemodialysis 3000 ml # Voids 0 # Bowel Movements 0 1 0 Physical Exam GENERAL: NAD, AAOx3 SKIN: Warm and dry. HEAD: Atraumatic. Normocephalic. EYES: Left pupil dilated and fixed compared to the right. ENT: No nasal bleeding or discharge. Mucous membranes pink and moist. NECK: Trachea midline. No JVD. CARDIOVASCULAR: Regular rate and rhythm. RESPIRATORY: No accessory muscle use. Clear to auscultation. Breath sounds equal bilaterally. GASTROINTESTINAL: Abdomen soft, non-tender, nondistended. Hepatic and splenic margins not palpable. MUSCULOSKELETAL: Extremities without clubbing, cyanosis, or edema. No obvious deformities. Right femoral, no hematoma NEUROLOGICAL: Awake and alert. No obvious cranial nerve deficits. Motor grossly within normal limits. Five out of 5 muscle strength in the arms and legs. Normal speech. PSYCHIATRIC: Appropriate mood and affect; insight and judgment normal. Laboratory Laboratory Tests Test 08/07/17 04:59 White Blood Count 6.3 TH/MM3 Red Blood Count 3.05 MIL/MM3 Hemoglobin 9.7 GM/DL Hematocrit 29.2 % Mean Corpuscular Volume 95.6 FL Mean Corpuscular Hemoglobin 31.7 PG Mean Corpuscular Hemoglobin Concent 33.1 % Red Cell Distribution Width 15.7 % Platelet Count 163 TH/MM3 Mean Platelet Volume 9.4 FL Prothrombin Time 14.7 SEC Prothromb Time International Ratio 1.5 RATIO Blood Urea Nitrogen 94 MG/DL Creatinine 10.57 MG/DL Random Glucose 158 MG/DL Calcium Level 8.9 MG/DL Phosphorus Level 6.4 MG/DL Magnesium Level 2.9 MG/DL Sodium Level 139 MEQ/L Potassium Level 4.4 MEQ/L Chloride Level 97 MEQ/L Carbon Dioxide Level 32.9 MEQ/L Anion Gap 9 MEQ/L Estimat Glomerular Filtration Rate 5 ML/MIN Assessment and Plan Problem List: (1) Non-ST elevation [place] (NSTEMI) ICD Codes: I21.4 - Non-ST elevation (NSTEMI) myocardial infarction Status: Acute (2) Multi-vessel coronary artery stenosis ICD Codes: I25.10 - Atherosclerotic heart disease of [place] coronary artery without angina pectoris (3) ESRD on hemodialysis ICD Codes: N18.6 - End stage renal disease; Z99.2 - Dependence on renal dialysis (4) HTN (hypertension) ICD Codes: I10 - Essential (primary) hypertension Status: Chronic (5) Paroxysmal atrial fibrillation ICD Codes: I48.0 - Paroxysmal atrial fibrillation Status: Acute (6) Diabetes mellitus ICD Codes: E11.9 - Diabetes mellitus Status: Chronic (7) Ischemic cardiomyopathy ICD Codes: I25.5 - Ischemic cardiomyopathy Status: Chronic (8) Anemia ICD Codes: D64.9 - Anemia, unspecified Status: Chronic (9) Hyperlipidemia ICD Codes: E78.5 - Hyperlipidemia, unspecified Status: Chronic Assessment and Plan 1) NSTEMI PCI of LM/LAD/LCx with laser atherectomy/cutting balloon/POBA Con't ASA/Brilinta 2) CAD with history of complex PCI PCI as above 3) Afib Coumadin restarted 4) EF 40-45%, decreased from previous 5) Elevated INR on admission 6) Left pupil dilated and fixed, not noticed before Possible secondary to Ipratropium nebulizer due to anti-cholinergic side effect especially if mask ill fitting directing toward the eye No other neurologic signs noted If further signs then Stat CT of the head Neurology evaluated, asked Ophthalmology to evaluate, but otherwise no further work up 7) Transfer out of ICU 8) PT eval and treat Problem Qualifiers (1) Diabetes mellitus: José Antonio May DO Aug 07, 2017 12:13
--- NOTE | 2017-08-07 16:52 | PD.CONS ---
History of Present Illness Service Ophthalmology Consult Requested By Reason for Consult left pupil dilation Primary Care Physician Noam Bunn MD Diagnoses: History of Present Illness The patient is a 57-year-old male with past medical history of coronary artery disease, diabetes mellitus, hypertension, end-stage renal disease on hemodialysis presenting with chest pain and diagnosed with an SC 6 days ago. Left pupil was noticed to be dilated 2 days ago. Patient is not complaining of blurry vision or pain. Ocular history significant for cataract surgery OU, PRP laser OU and Avastin injections OU for diabetic retinopathy. Past Family Social History Allergies: Coded Allergies: No Known Allergies (Unverified , 07/08/16) Physical Exam Vital Signs Vital Signs Date Time Temp Pulse Resp B/P (MAP) Pulse Ox O2 Delivery O2 Flow Rate FiO2 08/07/17 16:00 60 08/07/17 16:00 98.5 60 25 99 08/07/17 12:00 98.0 57 18 109/58 (75) 98 08/07/17 12:00 57 08/07/17 08:19 97 Nasal Cannula 2.00 08/07/17 08:00 97.5 56 19 111/59 (76) 95 08/07/17 08:00 56 08/07/17 08:00 Nasal Cannula 2.00 08/07/17 06:00 56 08/07/17 04:00 98.2 57 22 109/63 (78) 96 08/07/17 04:00 57 08/07/17 02:00 55 08/07/17 00:00 59 08/07/17 00:00 97.8 59 24 110/60 (77) 96 08/06/17 22:00 62 08/06/17 20:18 100 Nasal Cannula 2.00 08/06/17 20:00 98.7 65 33 132/76 (94) 100 08/06/17 20:00 65 08/06/17 19:00 97 Nasal Cannula 2.00 08/06/17 17:01 68 Physical Exam Va cc at near OD 20/25, OS 20/40 EOM full OU, no diplopia CVF full OU Pupils 2-1 OD, 5mm fixed OS IOP normal to palpation OU Anterior exam OD - normal eyelid, C/S W&Q, K clear, AC deep, pupil round, PCIOL OS - normal eyelid, C/S W&Q, K clear, AC deep, pupil round, PCIOL 1% pilocarpine administered - no constriction Laboratory Laboratory Tests Test 08/07/17 04:59 White Blood Count 6.3 Red Blood Count 3.05 Hemoglobin 9.7 Hematocrit 29.2 Mean Corpuscular Volume 95.6 Mean Corpuscular Hemoglobin 31.7 Mean Corpuscular Hemoglobin Concent 33.1 Red Cell Distribution Width 15.7 Platelet Count 163 Mean Platelet Volume 9.4 Prothrombin Time 14.7 Prothromb Time International Ratio 1.5 Blood Urea Nitrogen 94 Creatinine 10.57 Random Glucose 158 Calcium Level 8.9 Phosphorus Level 6.4 Magnesium Level 2.9 Sodium Level 139 Potassium Level 4.4 Chloride Level 97 Carbon Dioxide Level 32.9 Anion Gap 9 Estimat Glomerular Filtration Rate 5 Date/Time Source Procedure Growth Status 08/04/17 17:50 Blood Peripheral Aerobic Blood Culture - Preliminary NO GROWTH IN 3 DAYS Resulted 08/04/17 17:50 Blood Peripheral Anaerobic Blood Culture - Preliminary NO GROWTH IN 3 DAYS Resulted Result Diagram: 08/07/17 0459 08/07/17 0459 Assessment and Plan Problem List: (1) Mydriasis ICD Codes: H57.04 - Mydriasis Plan: No constriction with 1% pilocarpine - therefore most likely pharmacologic etiology - Atrovent nebulizer with poor fitting mask. No associated ophthalmoplegia or ptosis to suggest CN3 palsy. Gabriela Finn MD Aug 07, 2017 16:52
[2017-08-07] MEDS: cefTRIAXone INJ 1,000 MG in SODIUM CHLORIDE 0.9% INJ 100 ML IV SCH (17:36)
[2017-08-07] MEDS: WARFARIN SOD 5 MG TAB PO SCH (17:36)
[2017-08-07] MEDS: PRAVASTATIN SOD 40 MG TAB PO SCH (20:32)
[2017-08-08] VITALS (11 sets, daily range): BP systolic 97–136; BP diastolic 52–79; PULSE 53–59; RESP 18–28; TEMP 97.1–98.4; O2SAT 93–100
[2017-08-08] MEDS: NITROGLYCERIN 2% OINT 1 GM PACKET TOPICAL SCH ×5 (00:03→23:43)
[2017-08-08] MEDS: CHLORHEXIDINE GLUCONATE 2 % 1 PACK (2 CLOTHS) TOP SCH (04:00)
[2017-08-08] MEDS: INSULIN NovoLIN REGULAR SUPPLEMENTAL SCALE SQ SCH ×7 (04:00→23:48)
[2017-08-08] MEDS: ISOSORBIDE MONONITRATE 60 MG TAB PO SCH (06:29)
[2017-08-08] MEDS: CARVEDILOL 6.25 MG TAB PO SCH ×2 (09:00→20:03)
[2017-08-08] MEDS: ASPIRIN 81 MG CHEW TAB PO SCH (09:01)
[2017-08-08] MEDS: CALCIUM ACETATE 667 MG CAP PO SCH ×3 (09:02→17:53)
[2017-08-08] MEDS: GABAPENTIN 100 MG CAP PO SCH (09:02)
[2017-08-08] MEDS: TICAGRELOR 90 MG TAB PO SCH ×2 (09:02→20:03)
[2017-08-08] MEDS: DOCUSATE SODIUM 50 MG/SENNA 8.6 MG TAB PO SCH ×2 (09:02→20:03)
[2017-08-08] MEDS: AMIODARONE 200 MG TAB PO SCH ×2 (09:02→20:03)
[2017-08-08] MEDS: AZITHROMYCIN 250 MG TAB PO SCH (09:03)
[2017-08-08] MEDS: PRAMIPEXOLE DIHYDROCHLORIDE 0.25 MG TAB PO SCH ×2 (09:03→20:03)
[2017-08-08] MEDS: FAMOTIDINE 20 MG/2 ML VIAL IV PUSH SCH ×2 (09:04→20:03)
[2017-08-08 09:19] LABS: INTERNATIONAL NORMALIZED RATIO 1.4 RATIO; PROTHROMBIN TIME - PATIENT 14.1 SEC (9.8-11.6)
--- NOTE | 2017-08-08 14:30 | HHI.PR ---
Subjective Remarks Mr. Singleton says he is feeling better today, stronger. Had some mild substernal chest pain yesterday morning, but that is gone today. He feels ready to move to a regular floor. Eating well, sitting up on the side of his bed. Objective Vitals Vital Signs Date Time Temp Pulse Resp B/P (MAP) Pulse Ox O2 Delivery O2 Flow Rate FiO2 08/08/17 12:00 97.1 59 20 110/66 (81) 98 08/08/17 08:50 96 Nasal Cannula 2.00 08/08/17 08:00 Nasal Cannula 2.00 08/08/17 08:00 53 08/08/17 08:00 98.0 53 27 111/55 (73) 100 08/08/17 04:02 97.9 53 19 97/52 (67) 94 08/08/17 04:00 55 08/08/17 00:02 98.4 55 28 113/66 (82) 98 08/08/17 00:00 55 08/07/17 21:00 95 Nasal Cannula 2.00 08/07/17 20:00 98.2 58 24 116/64 (81) 95 08/07/17 20:00 95 Nasal Cannula 2.00 08/07/17 20:00 58 08/07/17 16:00 60 08/07/17 16:00 98.5 60 25 99 I/O 08/07/17 08/07/17 08/07/17 08/08/17 08/08/17 08/08/17 07:00 15:00 23:00 07:00 15:00 23:00 Intake Total 240 ml 580 ml 240 ml Output Total 0 ml 0 ml Balance 240 ml 580 ml 240 ml Intake Oral 240 ml 480 ml 240 ml IV Total 100 ml Output Urine Total 0 ml 0 ml Stool Total 0 ml # Voids 0 # Bowel Movements 0 0 Result Diagram: 08/07/17 0459 08/07/17458 Objective Remarks GENERAL: Obese, alert, oriented. SKIN: Warm and dry. HEAD: Normocephalic. EYES: No scleral icterus. No injection or drainage. Left pupil is fixed and dilated NECK: Supple, trachea midline. No JVD or lymphadenopathy. CARDIOVASCULAR: Regular rate and rhythm without murmurs, gallops, or rubs. RESPIRATORY: Breath sounds equal bilaterally. No accessory muscle use. GASTROINTESTINAL: Abdomen soft, non-tender, nondistended. EXTREMITIES: No cyanosis, or edema. NEUROLOGICAL: Awake, alert, and oriented x 3. Non-focal. A/P Problem List: (1) Non-ST elevation [place] (NSTEMI) ICD Code: I21.4 - Non-ST elevation (NSTEMI) myocardial infarction Status: Acute (2) ESRD on hemodialysis ICD Code: N18.6 - End stage renal disease; Z99.2 - Dependence on renal dialysis (3) Diabetes mellitus ICD Code: E11.9 - Diabetes mellitus Status: Chronic Assessment and Plan NSTEMI s/p heart catheterization, no chest pain today Appreciate Cardiology consult Will await discharge recommendations h/o Atrial Fibrillation Coumadin restarted per cardiology Stable, no irregularity on exam today Left Pupil dilation Pharmacologic etiology most likely Appreciate Ophthalmology consult ESRD w/ Hemodialysis Dialysis 3x per week Appreciate Nephrology arranging dialysis Fever/URI Right gabriela-hilar opacity on CXR Afebrile >48 hours, WBC normalized Continue Rocephin/Azithromycin IV until time for discharge Type 2 Diabetes Accuchecks with SSI coverage Diabetic Diet DVT Prophylaxis On Coumadin Problem Qualifiers (1) Diabetes mellitus: Niko Corona MD Aug 08, 2017 14:30
--- NOTE | 2017-08-08 15:20 | PD.CARD.PN ---
Subjective Subjective Remarks Doing well overall Up out of bed Left pupil less dilated today Objective Medications Current Medications Medications (Trade) Dose Ordered Sig/Taj Route Start Time Stop Time Status Last Admin (Pepcid Inj) 10 mg Q12HR IV PUSH 08/01/17 21:00 08/08/17 09:04 (Atrovent Neb) 0.5 mg Q2HR NEB PRN INH 08/01/17 16:45 Miscellaneous Information 1 Q361D XX 08/01/17 16:45 (Chlorhexidine 2% Cloth) Taper DAILY@04 TOP 08/02/17 04:00 07/29/18 03:59 08/07/17 04:00 (Chlorhexidine 2% Cloth) 3 pack UNSCH PRN TOP 08/01/17 16:45 (Janett-Colace) 1 tab BID PO 08/01/17 21:00 08/08/17 09:02 (Milk Of Magnesia Liq) 30 ml Q12H PRN PO 08/01/17 16:45 08/06/17 12:35 (Senokot) 17.2 mg Q12H PRN PO 08/01/17 16:45 08/04/17 12:33 (Dulcolax Supp) 10 mg DAILY PRN RECTAL 08/01/17 16:45 (Lactulose Liq) 30 ml DAILY PRN PO 08/01/17 16:45 08/04/17 17:15 (Cordarone) 200 mg BID PO 08/01/17 21:00 08/08/17 09:02 (Imdur) 60 mg DAILY@07 PO 08/02/17 07:00 08/08/17 06:29 (Nitrostat Sl) 0.4 mg UNSCH PRN SL 08/01/17 16:45 08/02/17 05:36 (Coreg) 6.25 mg Q12HR PO 08/01/17 17:30 08/07/17 20:32 Sodium Chloride 1,000 ml @ 0 mls/hr Q0M PRN OTHER 08/01/17 18:07 (Heparin Inj) 8,000 units UNSCH PRN IV FLUSH 08/01/17 18:15 Sodium Chloride 1,000 ml @ 200 mls/hr Q5H PRN IV 08/01/17 18:07 Sodium Chloride 1,000 ml @ 0 mls/hr Q0M PRN OTHER 08/01/17 18:07 (Mannitol Inj) 12.5 gm UNSCH PRN IV 08/01/17 18:15 Albumin Human 100 ml @ 60 mls/hr UNSCH PRN IV 08/01/17 18:15 (NS Flush) 5 ml UNSCH PRN IV FLUSH 08/01/17 18:15 (Heparin Inj) UNSCH PRN .XX 08/01/17 18:15 (Gentamicin Inj) 20 mg UNSCH PRN OTHER 08/01/17 18:15 (Zofran Inj) 4 mg UNSCH PRN IV PUSH 08/01/17 18:15 08/06/17 13:23 (Tylenol) 650 mg UNSCH PRN PO 08/01/17 18:15 08/06/17 13:23 (Benadryl) 25 mg UNSCH PRN PO 08/01/17 18:15 (Nitrostat Sl) 0.4 mg UNSCH PRN SL 08/01/17 18:15 (Catapres) 0.1 mg UNSCH PRN PO 08/01/17 18:15 (Epogen Inj) 4,000 units UNSCH PRN IV PUSH 08/01/17 18:15 08/06/17 11:21 (Gelfoam 12 Mm/7 Mm Top) 1 foam UNSCH PRN TOP 08/01/17 18:15 08/06/17 11:22 (Aspirin Chew) 81 mg DAILY PO 08/02/17 09:00 08/08/17 09:01 (Brilinta) 90 mg BID PO 08/01/17 21:00 08/08/17 09:02 (Nitroglycerin 2% Oint) 1 inch Q6HR TOPICAL 08/02/17 00:00 08/08/17 11:50 (Neurontin) 100 mg DAILY PO 08/02/17 11:15 08/08/17 09:02 (Mirapex) 0.25 mg BID PO 08/02/17 21:00 08/08/17 09:03 (D50w (Vial) Inj) 50 ml UNSCH PRN IV PUSH 08/03/17 08:00 (Glucagon Inj) 1 mg UNSCH PRN OTHER 08/03/17 08:00 (NovoLIN R SUPPLEMENTAL SCALE) 1 Q4HR SQ 08/03/17 08:00 08/08/17 11:49 (Phoslo) 2,001 mg TID PO 08/03/17 13:00 08/08/17 11:50 Ceftriaxone Sodium 1000 mg/ Sodium Chloride 100 ml @ 200 mls/hr Q24H IV 08/04/17 17:00 08/07/17 17:36 (Zithromax) 500 mg DAILY PO 08/04/17 16:30 08/08/17 09:03 (Pravachol) 40 mg HS PO 08/05/17 21:00 08/07/17 20:32 Pharmacy Profile Note 0 ml @ 0 mls/hr UNSCH OTHER 08/07/17 07:30 (Coumadin) 5 mg DAILY@1600 PO 08/07/17 16:00 08/07/17 17:36 (Coumadin) 1 mg ONCE ONCE PO 08/08/17 16:00 08/08/17 16:01 Vital Signs / I&O Vital Signs Date Time Temp Pulse Resp B/P (MAP) Pulse Ox O2 Delivery O2 Flow Rate FiO2 08/08/17 12:00 97.1 59 20 110/66 (81) 98 08/08/17 08:50 96 Nasal Cannula 2.00 08/08/17 08:00 Nasal Cannula 2.00 08/08/17 08:00 53 08/08/17 08:00 98.0 53 27 111/55 (73) 100 08/08/17 04:02 97.9 53 19 97/52 (67) 94 08/08/17 04:00 55 08/08/17 00:02 98.4 55 28 113/66 (82) 98 08/08/17 00:00 55 08/07/17 21:00 95 Nasal Cannula 2.00 08/07/17 20:00 98.2 58 24 116/64 (81) 95 08/07/17 20:00 95 Nasal Cannula 2.00 08/07/17 20:00 58 08/07/17 16:00 60 08/07/17 16:00 98.5 60 25 99 I/O 08/07/17 08/07/17 08/07/17 08/08/17 08/08/17 08/08/17 07:00 15:00 23:00 07:00 15:00 23:00 Intake Total 240 ml 580 ml 240 ml Output Total 0 ml 0 ml Balance 240 ml 580 ml 240 ml Intake Oral 240 ml 480 ml 240 ml IV Total 100 ml Output Urine Total 0 ml 0 ml Stool Total 0 ml # Voids 0 # Bowel Movements 0 0 Physical Exam GENERAL: NAD, AAOx3 SKIN: Warm and dry. HEAD: Atraumatic. Normocephalic. EYES: Left pupil less dilated ENT: No nasal bleeding or discharge. Mucous membranes pink and moist. NECK: Trachea midline. No JVD. CARDIOVASCULAR: Regular rate and rhythm. RESPIRATORY: No accessory muscle use. Clear to auscultation. Breath sounds equal bilaterally. GASTROINTESTINAL: Abdomen soft, non-tender, nondistended. Hepatic and splenic margins not palpable. MUSCULOSKELETAL: Extremities without clubbing, cyanosis, or edema. No obvious deformities. Right femoral, no hematoma NEUROLOGICAL: Awake and alert. No obvious cranial nerve deficits. Motor grossly within normal limits. Five out of 5 muscle strength in the arms and legs. Normal speech. PSYCHIATRIC: Appropriate mood and affect; insight and judgment normal. Laboratory Laboratory Tests Test 08/08/17 06:45 Prothrombin Time 14.1 SEC Prothromb Time International Ratio 1.4 RATIO Assessment and Plan Problem List: (1) Non-ST elevation [place] (NSTEMI) ICD Codes: I21.4 - Non-ST elevation (NSTEMI) myocardial infarction Status: Acute (2) Multi-vessel coronary artery stenosis ICD Codes: I25.10 - Atherosclerotic heart disease of [place] coronary artery without angina pectoris (3) ESRD on hemodialysis ICD Codes: N18.6 - End stage renal disease; Z99.2 - Dependence on renal dialysis (4) HTN (hypertension) ICD Codes: I10 - Essential (primary) hypertension Status: Chronic (5) Paroxysmal atrial fibrillation ICD Codes: I48.0 - Paroxysmal atrial fibrillation Status: Acute (6) Diabetes mellitus ICD Codes: E11.9 - Diabetes mellitus Status: Chronic (7) Ischemic cardiomyopathy ICD Codes: I25.5 - Ischemic cardiomyopathy Status: Chronic (8) Anemia ICD Codes: D64.9 - Anemia, unspecified Status: Chronic (9) Hyperlipidemia ICD Codes: E78.5 - Hyperlipidemia, unspecified Status: Chronic Assessment and Plan 1) NSTEMI PCI of LM/LAD/LCx with laser atherectomy/cutting balloon/POBA Con't ASA/Brilinta 2) CAD with history of complex PCI PCI as above 3) Afib Coumadin restarted 4) EF 40-45%, decreased from previous 5) Elevated INR on admission 6) Left pupil dilated and fixed, not noticed before Left to be due to Ipratropium Better, no other neurologic complaints 7) Transfer out of ICU 8) PT eval and treat Problem Qualifiers (1) Diabetes mellitus: José Antonio May DO Aug 08, 2017 15:20
--- NOTE | 2017-08-08 15:20 | HHI.NPPN ---
Subjective General Problems: Hypertension Renal Failure: End Stage Renal Disease History of Present Illness This is a 57-year-old man known to me from before with past medical history of hypertension, ischemic heart disease, end-stage renal disease on hemodialysis, chronic anemia, diabetes mellitus. He came to the hospital with complaint of chest pain and mild shortness of breath. I was called to see the patient because of management of dialysis. The patient has been on hemodialysis three times per week - Tuesday, and Tuesday, and according to the patient he has not been missing any treatment. He went for his dialysis on Tuesday. The patient's chest pain started off and on but according to him it was not very severe and he went to get gas in his car with his friend and at the gas station he collapsed and fell down and lost of consciousness for almost a minute. The patient was leaning against his car when he started feeling dizzy and he does not remember exactly what happened. The patient's friend called for help and the patient woke up. He was admitted in March and at that time he had a cardiac catheterization by Dr. May and it was found that he has severe ischemic heart disease and he was seen by Cardiac Surgery and it is thought that he is not a candidate for surgery and he underwent stenting done on April 22. The patient has some pain in his thigh area and then he was on one of the statins and it was stopped. It was initially reduced in the dose and then it was stopped by his primary physician with the thought of improving the pain, but he has some kind of cramping in the thigh and the legs sometime off and on. The patient denies missing any dialysis treatment recently, although he has still been gaining too much weight in between the treatments. Additional Remarks Patient is alert, still has Hiccups, no nausea. Review of Systems Respiratory Respiratory Remarks Denies SOB Cardiovascular Cardiac Remarks Denies cp Gastrointestinal GI Remarks denies abdominal pain Objective Data Data Vital Signs Date Time Temp Pulse Resp B/P (MAP) Pulse Ox O2 Delivery O2 Flow Rate FiO2 08/08/17 12:00 97.1 59 20 110/66 (81) 98 08/08/17 08:50 96 Nasal Cannula 2.00 2 08:00 Nasal Cannula 2.00 08/08/17 08:00 53 08/08/17 08:00 98.0 53 27 111/55 (73) 100 2/12/18 04:02 97.9 53 19 97/52 (67) 94 08/08/17 04:00 55 08/08/17 00:02 98.4 55 28 113/66 (82) 98 08/08/17 00:00 55 08/07/17 21:00 95 Nasal Cannula 2.00 08/07/17 20:00 98.2 58 24 116/64 (81) 95 08/07/17 20:00 95 Nasal Cannula 2.00 08/07/17 20:00 58 08/07/17 16:00 60 08/07/17 16:00 98.5 60 25 99 -: 08/07/17 0459 08/07/17 0459 Physical Exam General Appearance: No Acute Distress, Obese Eyes Eye Exam: Pupils Equal Throat Throat Exam: Oral Mucosa [place] & Moist Pulmonary Resp Exam: Breath Sounds Equal, No Distress, Decreased Bases Cardiology CV Exam: Regular Gastrointestinal/Abdomen GI Exam: Soft, Non-Tender, Bowel Sounds Present Genitourinary Exam: Flank Non-Tender Extremeties Extremities Exam: Trace Edema Neurologic Neuro Exam: Alert, Awake, Oriented Psychiatric Psych Exam: Appropriate Responses Assessment/Plan Discussed Condition With: Patient Assessment Summary: End Stage Renal Disease Electrolyte Assessment: Hyperkalemia Problem List: (1) ESRD on hemodialysis ICD Codes: N18.6 - End stage renal disease; Z99.2 - Dependence on renal dialysis Plan: Denies any chest pain. On heparin gtt. Leg cramps have improved with the addition of Mirapex. On Heparin gtt and CP free Now febrile. BP is stable. Has left pupil non reactive, Neurology consult noted. HD will be in AM. On Coumadin and awaiting INR to be Therapeutic. (2) Diabetes mellitus ICD Codes: E11.9 - Diabetes mellitus Status: Chronic Plan: Maintain BS 140 mg/dl to 180 mg/dl (3) Non-ST elevation [place] (NSTEMI) ICD Codes: I21.4 - Non-ST elevation (NSTEMI) myocardial infarction Status: Acute Plan: On heparin gtt. No chest pain currently Plans for heart cath possible tomorrow (4) HTN (hypertension) ICD Codes: I10 - Essential (primary) hypertension Status: Chronic Plan: Well controlled Continue current regimen Problem Qualifiers (1) Diabetes mellitus: Jeana Corona MD Aug 08, 2017 15:20
[2017-08-08] MEDS ORDERED: WARFARIN SOD 1 MG TAB PO ONE (16:00)
[2017-08-08] MEDS: WARFARIN SOD 5 MG TAB PO SCH (16:05)
[2017-08-08] MEDS: cefTRIAXone INJ 1,000 MG in SODIUM CHLORIDE 0.9% INJ 100 ML IV SCH (16:22)
[2017-08-08] MEDS: PRAVASTATIN SOD 40 MG TAB PO SCH (20:03)
[2017-08-09] VITALS: BP 140/80; PULSE 61; RESP 18; TEMP 98.7; O2SAT 97
[2017-08-09 04:00] VITALS: BP 120/52; PULSE 112; PULSE 57; RESP 16; TEMP 98.5; O2SAT 96
[2017-08-09] MEDS: CHLORHEXIDINE GLUCONATE 2 % 1 PACK (2 CLOTHS) TOP SCH (04:00)
[2017-08-09] MEDS: INSULIN NovoLIN REGULAR SUPPLEMENTAL SCALE SQ SCH ×4 (04:30→16:34)
[2017-08-09] MEDS: ISOSORBIDE MONONITRATE 60 MG TAB PO SCH (06:10)
[2017-08-09] MEDS: NITROGLYCERIN 2% OINT 1 GM PACKET TOPICAL SCH ×3 (06:10→17:12)
[2017-08-09 07:42] LABS: INTERNATIONAL NORMALIZED RATIO 1.5 RATIO; PROTHROMBIN TIME - PATIENT 15.5 SEC (9.8-11.6)
[2017-08-09 08:00] VITALS: BP 117/56; PULSE 55; RESP 18; TEMP 96.8; O2SAT 94
[2017-08-09] MEDS: FAMOTIDINE 20 MG/2 ML VIAL IV PUSH SCH (08:29)
[2017-08-09] MEDS: CARVEDILOL 6.25 MG TAB PO SCH (08:30)
[2017-08-09] MEDS: TICAGRELOR 90 MG TAB PO SCH (08:30)
[2017-08-09] MEDS: AMIODARONE 200 MG TAB PO SCH (08:30)
[2017-08-09] MEDS: GABAPENTIN 100 MG CAP PO SCH (08:30)
[2017-08-09] MEDS: ASPIRIN 81 MG CHEW TAB PO SCH (08:30)
[2017-08-09] MEDS: PRAMIPEXOLE DIHYDROCHLORIDE 0.25 MG TAB PO SCH (08:30)
[2017-08-09] MEDS: AZITHROMYCIN 250 MG TAB PO SCH (08:31)
[2017-08-09] MEDS: DOCUSATE SODIUM 50 MG/SENNA 8.6 MG TAB PO SCH (08:31)
[2017-08-09] MEDS: CALCIUM ACETATE 667 MG CAP PO SCH ×3 (08:31→17:12)
--- NOTE | 2017-08-09 09:17 | HHI.NPPN ---
Subjective General Problems: Hypertension Renal Failure: End Stage Renal Disease History of Present Illness This is a 57-year-old man known to me from before with past medical history of hypertension, ischemic heart disease, end-stage renal disease on hemodialysis, chronic anemia, diabetes mellitus. He came to the hospital with complaint of chest pain and mild shortness of breath. I was called to see the patient because of management of dialysis. The patient has been on hemodialysis three times per week - Tuesday, and Tuesday, and according to the patient he has not been missing any treatment. He went for his dialysis on Tuesday. The patient's chest pain started off and on but according to him it was not very severe and he went to get gas in his car with his friend and at the gas station he collapsed and fell down and lost of consciousness for almost a minute. The patient was leaning against his car when he started feeling dizzy and he does not remember exactly what happened. The patient's friend called for help and the patient woke up. He was admitted in March and at that time he had a cardiac catheterization by Dr. May and it was found that he has severe ischemic heart disease and he was seen by Cardiac Surgery and it is thought that he is not a candidate for surgery and he underwent stenting done on April 22. The patient has some pain in his thigh area and then he was on one of the statins and it was stopped. It was initially reduced in the dose and then it was stopped by his primary physician with the thought of improving the pain, but he has some kind of cramping in the thigh and the legs sometime off and on. The patient denies missing any dialysis treatment recently, although he has still been gaining too much weight in between the treatments. Additional Remarks Patient is alert in good spirits, still has Hiccups, no SOB (Racquel Hooks) Review of Systems Respiratory Respiratory Remarks Hiccups Denies SOB (Racquel Hooks) Cardiovascular Cardiac Remarks Denies cp (Racquel Hooks) Gastrointestinal GI Remarks denies abdominal pain (Racquel Hooks) Objective Data Data Vital Signs Date Time Temp Pulse Resp B/P (MAP) Pulse Ox O2 Delivery O2 Flow Rate FiO2 08/09/17 08:00 96.8 55 18 117/56 (76) 94 08/09/17 04:00 57 08/09/17 04:00 98.5 112 16 120/52 (74) 96 08/09/17 00:00 98.7 61 18 140/80 (100) 97 08/08/17 23:59 53 08/08/17 20:17 58 08/08/17 20:00 Nasal Cannula 2.00 08/08/17 20:00 98.1 58 19 136/79 (98) 97 08/08/17 16:00 57 08/08/17 16:00 97.7 57 18 122/64 (83) 93 08/08/17 12:00 97.1 59 20 110/66 (81) 98 08/08/17 12:00 55 (Racquel Hooks) -: 08/07/17 0459 08/07/17 0459 Physical Exam General Appearance: No Acute Distress, Obese (Racquel Hooks) Eyes Eye Exam: Pupils Equal (Racquel Hooks) Throat Throat Exam: Oral Mucosa [place] & Moist (Racquel Hooks) Pulmonary Resp Exam: Breath Sounds Equal, No Distress, Decreased Bases (Racquel Hooks) Cardiology CV Exam: Regular (Racquel Hooks) Gastrointestinal/Abdomen GI Exam: Soft, Non-Tender, Bowel Sounds Present (Racquel Hooks) Genitourinary Exam: Flank Non-Tender (Racquel Hooks) Extremeties Extremities Exam: Trace Edema (Racquel Hooks) Neurologic Neuro Exam: Alert, Awake, Oriented (Racquel Hooks) Psychiatric Psych Exam: Appropriate Responses (Racquel Hooks) Assessment/Plan Discussed Condition With: Patient Assessment Summary: End Stage Renal Disease Electrolyte Assessment: Hyperkalemia Problem List: (1) ESRD on hemodialysis ICD Codes: N18.6 - End stage renal disease; Z99.2 - Dependence on renal dialysis Plan: Denies any chest pain. Leg cramps have improved with the addition of Mirapex. BP is stable. Has left pupil non reactive, Neurology consult noted. On Coumadin and awaiting INR to be Therapeutic. Dialysis this am (2) Diabetes mellitus ICD Codes: E11.9 - Diabetes mellitus Status: Chronic Plan: Maintain BS 140 mg/dl to 180 mg/dl (3) Non-ST elevation [place] (NSTEMI) ICD Codes: I21.4 - Non-ST elevation (NSTEMI) myocardial infarction Status: Acute Plan: No chest pain (4) HTN (hypertension) ICD Codes: I10 - Essential (primary) hypertension Status: Chronic Plan: Well controlled Continue current regimen (Racquel Hooks) Problem List: (1) ESRD on hemodialysis ICD Codes: N18.6 - End stage renal disease; Z99.2 - Dependence on renal dialysis Plan: Denies any chest pain. Leg cramps have improved with the addition of Mirapex. BP is stable. On Coumadin and awaiting INR to be Therapeutic. Patient seen and examined, agree with above. Feeling better, for D/C, HD on . (2) Diabetes mellitus ICD Codes: E11.9 - Diabetes mellitus Status: Chronic Plan: Maintain BS 140 mg/dl to 180 mg/dl (3) Non-ST elevation [place] (NSTEMI) ICD Codes: I21.4 - Non-ST elevation (NSTEMI) myocardial infarction Status: Acute Plan: No chest pain (4) HTN (hypertension) ICD Codes: I10 - Essential (primary) hypertension Status: Chronic Plan: Well controlled Continue current regimen (Jeana Corona MD) Problem Qualifiers (1) Diabetes mellitus: Racquel Hoosk Aug 09, 2017 09:17 Jeana Corona MD Aug 09, 2017 19:16
[2017-08-09] MEDS: GELATIN 12 MM/7 MM FOAM TOP PRN (09:21)
[2017-08-09] MEDS: EPOETIN ALFA 10,000 UNITS/ML VIAL IV PUSH PRN (09:21)
[2017-08-09 09:44] VITALS: O2SAT 94
[2017-08-09] MEDS ORDERED: AZIT250T3 PO (14:04)
[2017-08-09] MEDS ORDERED: ASPI81 PO (14:05)
[2017-08-09] MEDS ORDERED: BRIL90TA PO (14:05)
--- NOTE | 2017-08-09 14:12 | HHI.DS ---
Discharge Summary Admission Date Aug 01, 2017 at 17:06 Discharge Date: Aug 09, 2017 Admitting Diagnosis NSTEMI, renal failure, DM, (1) Non-ST elevation [place] (NSTEMI) ICD Code: I21.4 - Non-ST elevation (NSTEMI) myocardial infarction Status: Acute (2) ESRD on hemodialysis ICD Code: N18.6 - End stage renal disease; Z99.2 - Dependence on renal dialysis (3) Diabetes mellitus ICD Code: E11.9 - Diabetes mellitus Status: Chronic Procedures PCI of LM/LAD/LCx with laser atherectomy/cutting balloon/POBA Brief History - From Admission The patient is a 57-year-old male with past medical history of coronary artery disease, diabetes mellitus, hypertension, end-stage renal disease on hemodialysis Tuesday, , Tuesday. The patient presented to [facility] ED with midsternal chest pain described as sharp, throbbing pain, 5/10 on the pain scale. The pain is localized. The patient also reports shortness of breath associated with his chest discomfort. He denies any nausea, vomiting or abdominal pain. In addition he denies any orthopnea, PND or edema of lower extremities. His laboratory data showed troponin of 13.9 with a total CK 358 and MB percentage 4.1. In addition his creatinine level is 11.0 with a potassium 4.7. CBC/BMP: 08/07/17 0459 08/07/17 0459 Significant Findings Laboratory Tests Test 08/07/17 04:59 08/08/17 06:45 08/08/17 18:55 08/09/17 05:38 Red Blood Count 3.05 MIL/MM3 (4.50-5.90) Hemoglobin 9.7 GM/DL (13.0-17.0) Hematocrit 29.2 % (39.0-51.0) Prothrombin Time 14.7 SEC (9.8-11.6) 14.1 SEC (9.8-11.6) 15.5 SEC (9.8-11.6) Blood Urea Nitrogen 94 MG/DL (7-18) Creatinine 10.57 MG/DL (0.60-1.30) Random Glucose 158 MG/DL (74-106) Phosphorus Level 6.4 MG/DL (2.5-4.9) Magnesium Level 2.9 MG/DL (1.5-2.5) Chloride Level 97 MEQ/L (98-107) Carbon Dioxide Level 32.9 MEQ/L (21.0-32.0) Estimat Glomerular Filtration Rate 5 ML/MIN (>89) Activated Partial Thromboplast Time 30.5 SEC (24.3-30.1) PE at Discharge GENERAL: Obese, alert, oriented. SKIN: Warm and dry. HEAD: Normocephalic. EYES: No scleral icterus. No injection or drainage. Left pupil is fixed and dilated NECK: Supple, trachea midline. No JVD or lymphadenopathy. CARDIOVASCULAR: Regular rate and rhythm without murmurs, gallops, or rubs. RESPIRATORY: Breath sounds equal bilaterally. No accessory muscle use. GASTROINTESTINAL: Abdomen soft, non-tender, nondistended. EXTREMITIES: No cyanosis, or edema. NEUROLOGICAL: Awake, alert, and oriented x 3. Non-focal. Hospital Course 57M with h/o ESRD, DM2, CAD, A Fib was treated for NSTEMI with heart catheterization. He tolerated the procedure well and after a discussion with cardiology is expecting to go home today. He received a dialysis treatment this morning and will be following up with his dialysis center later this week. He is not on oxygen at home and denies any shortness of breath, though he did have a recent cough and is being treated with Azithromycin to cover an early PNA that showed up on CXR. He requests to be discharged home as soon as possible. Pt Condition on Discharge: Good Discharge Disposition: Discharge Home Discharge Time: <= 30 minutes Discharge Instructions DIET: Follow Instructions for: Diabetic Diet, Dialysis Diet, Low Fat Diet Activities you can perform: Weight Bearing as Niko Dunne MD Aug 09, 2017 14:12
[2017-08-09] MEDS ORDERED: LEVEMIR SQ ×2 (14:42)
[2017-08-09] MEDS: WARFARIN SOD 5 MG TAB PO SCH (16:33)
[2017-08-09] MEDS: cefTRIAXone INJ 1,000 MG in SODIUM CHLORIDE 0.9% INJ 100 ML IV SCH ×2 (16:34→17:00)
--- NOTE | 2017-08-09 22:41 | PD.CARD.PN ---
Subjective Subjective Remarks Patient was seen earlier today, late entry note Doing well overall, feels great Up out of bed Left pupil less dilated today Objective Vital Signs / I&O Vital Signs Date Time Temp Pulse Resp B/P (MAP) Pulse Ox O2 Delivery O2 Flow Rate FiO2 08/09/17 09:44 94 08/09/17 08:00 Nasal Cannula 2.00 08/09/17 08:00 96.8 55 18 117/56 (76) 94 08/09/17 04:00 57 08/09/17 04:00 98.5 112 16 120/52 (74) 96 08/09/17 00:00 98.7 61 18 140/80 (100) 97 08/08/17 23:59 53 I/O 08/08/17 08/08/17 08/08/17 08/09/17 08/09/17 08/09/17 07:00 15:00 23:00 07:00 15:00 23:00 Intake Total 240 ml 480 ml 240 ml Output Total 0 ml 2000 ml Balance 240 ml 480 ml 240 ml -2000 ml Intake Oral 240 ml 480 ml 240 ml Output Urine Total 0 ml Hemodialysis 2000 ml # Voids 2 2 # Bowel Movements 0 0 1 Physical Exam GENERAL: NAD, AAOx3 SKIN: Warm and dry. HEAD: Atraumatic. Normocephalic. EYES: Left pupil less dilated ENT: No nasal bleeding or discharge. Mucous membranes pink and moist. NECK: Trachea midline. No JVD. CARDIOVASCULAR: Regular rate and rhythm. RESPIRATORY: No accessory muscle use. Clear to auscultation. Breath sounds equal bilaterally. GASTROINTESTINAL: Abdomen soft, non-tender, nondistended. Hepatic and splenic margins not palpable. MUSCULOSKELETAL: Extremities without clubbing, cyanosis, or edema. No obvious deformities. Right femoral, no hematoma NEUROLOGICAL: Awake and alert. No obvious cranial nerve deficits. Motor grossly within normal limits. Five out of 5 muscle strength in the arms and legs. Normal speech. PSYCHIATRIC: Appropriate mood and affect; insight and judgment normal. Laboratory Laboratory Tests Test 08/09/17 05:38 Prothrombin Time 15.5 SEC Prothromb Time International Ratio 1.5 RATIO Activated Partial Thromboplast Time 30.5 SEC Assessment and Plan Problem List: (1) Non-ST elevation [place] (NSTEMI) ICD Codes: I21.4 - Non-ST elevation (NSTEMI) myocardial infarction Status: Acute (2) Multi-vessel coronary artery stenosis ICD Codes: I25.10 - Atherosclerotic heart disease of [place] coronary artery without angina pectoris (3) ESRD on hemodialysis ICD Codes: N18.6 - End stage renal disease; Z99.2 - Dependence on renal dialysis (4) HTN (hypertension) ICD Codes: I10 - Essential (primary) hypertension Status: Chronic (5) Paroxysmal atrial fibrillation ICD Codes: I48.0 - Paroxysmal atrial fibrillation Status: Acute (6) Diabetes mellitus ICD Codes: E11.9 - Diabetes mellitus Status: Chronic (7) Ischemic cardiomyopathy ICD Codes: I25.5 - Ischemic cardiomyopathy Status: Chronic (8) Anemia ICD Codes: D64.9 - Anemia, unspecified Status: Chronic (9) Hyperlipidemia ICD Codes: E78.5 - Hyperlipidemia, unspecified Status: Chronic Assessment and Plan 1) NSTEMI PCI of LM/LAD/LCx with laser atherectomy/cutting balloon/POBA Con't ASA/Brilinta 2) CAD with history of complex PCI PCI as above 3) Afib Coumadin restarted 4) EF 40-45%, decreased from previous 5) Elevated INR on admission 6) Left pupil dilated and fixed, not noticed before Left to be due to Ipratropium Better, no other neurologic complaints 7) Transfer out of ICU 8) PT eval and treat 9) Cardiovascularly stable for discharge, will follow up with me in the office INR will be checked on Tuesday in the office Problem Qualifiers (1) Diabetes mellitus: José Antonio May DO Aug 09, 2017 22:41
== END 2017-08-09 17:43 | disposition home or self-care (01) | DRG 250 ==
LOC: NEPE 14:53 → NEDA 17:06 → HIME 18:46 → N07A 08-08 10:39
PROVIDERS: ADMIT Family Medicine; ATTEND Family Medicine
PROC: 5A1D70Z Performance of Urinary Filtration, Intermittent, Less than 6 Hours Per Day (ICD-10-PCS; 2017-08-02)
PROC: 02C03ZZ Extirpation of Matter from Coronary Artery, One Artery, Percutaneous Approach (ICD-10-PCS; 2017-08-05)
PROC: 4A023N7 Measurement of Cardiac Sampling and Pressure, Left Heart, Percutaneous Approach (ICD-10-PCS; 2017-08-05)
PROC: B2111ZZ Fluoroscopy of Multiple Coronary Arteries using Low Osmolar Contrast (ICD-10-PCS; 2017-08-05)
PROC: 02713ZZ Dilation of Coronary Artery, Two Arteries, Percutaneous Approach (ICD-10-PCS; principal; 2017-08-05 09:45)
DX: I21.4 Non-ST elevation (NSTEMI) myocardial infarction (principal); N18.6 End stage renal disease; I13.2 Hypertensive heart and chronic kidney disease with heart failure and with stage 5 chronic kidney disease, or end stage renal disease; J18.9 Pneumonia, unspecified organism; T82.858A Stenosis of other vascular prosthetic devices, implants and grafts, initial encounter; E11.22 Type 2 diabetes mellitus with diabetic chronic kidney disease; R00.1 Bradycardia, unspecified; I48.0 Paroxysmal atrial fibrillation; R55 Syncope and collapse; E78.5 Hyperlipidemia, unspecified; E66.9 Obesity, unspecified; E11.319 Type 2 diabetes mellitus with unspecified diabetic retinopathy without macular edema; I25.10 Atherosclerotic heart disease of native coronary artery without angina pectoris; Z99.2 Dependence on renal dialysis; Z95.5 Presence of coronary angioplasty implant and graft; Z89.421 Acquired absence of other right toe(s); Z87.891 Personal history of nicotine dependence; I25.2 Old myocardial infarction; I50.9 Heart failure, unspecified; H57.04 Mydriasis; Y71.2 Prosthetic and other implants, materials and accessory cardiovascular devices associated with adverse incidents; Y92.009 Unspecified place in unspecified non-institutional (private) residence as the place of occurrence of the external cause; E87.5 Hyperkalemia; I25.5 Ischemic cardiomyopathy; I44.0 Atrioventricular block, first degree; Z79.01 Long term (current) use of anticoagulants; D64.9 Anemia, unspecified; R06.6 Hiccough; R25.2 Cramp and spasm; Z79.4 Long term (current) use of insulin; Z23 Encounter for immunization
CPT/HCPCS: 70450; 71045; 71046; 80048; 80053; 82550; 82552; 82948; 83690; 83735; 84100; 84484; 85002; 85025; 85027; 85576; 85610; 85730; 86850; 86900; 86901; 87040; 87641; 90732; 90935; 92924; 93005; 93306; 93458; 93880; 94640; 94664; 96374; 99152; 99153; 99285; C1725; C1760; C1769; C1885; C1887; C1893; J0696; J1644; J2250; J2370; J2405; J3010; Q4081; Q9967

== ENCOUNTER 2017-09-24 19:45 | Inpatient (IN) | payer MEDICARE, MEDICAID ==
[~2017-09-24] VITALS: Ht 165.1 cm; Wt 107.0 kg
[~2017-09-24 19:45] MED LIST changes: -ASPI1TAB57 PO; +ASPI81 PO; +AZIT250T3 PO; +BRIL90TA PO; -PLAV75TA29 PO; -PRAV80TA PO; -WALKER WHEELS/F1 MIS
[2017-09-24 19:52] VITALS: BP 106/66; PULSE 62; RESP 24; TEMP 98.5; O2SAT 98
[2017-09-24 20:29] VITALS: BP 130/63; PULSE 65; RESP 16; O2SAT 96
[2017-09-24 20:43] VITALS: RESP 16; O2SAT 95
[2017-09-24] MEDS ORDERED: SODIUM CHLORIDE 0.9% FLUSH 10 ML FLUSH IVF PRN (20:45)
--- NOTE | 2017-09-24 20:51 | PD ---
HPI Chief Complaint: Respiratory Symptoms Time Seen by Provider: 20:23 Travel History International Travel<30 days: No Contact w/Intl Traveler<30days: No Traveled to known affect area: No History of Present Illness HPI A 57-year-old man, presents to the emergency department complaining of chest pain and shortness of breath. Extensive medical history including CAD, MT, cardiac myopathy with an EF 20%, as well as diabetes, end-stage renal disease on Tuesday dialysis, and hypertension/hyperlipidemia. The patient states he had a heart attack in July of this year. [place] initially okay afterwards. On September 16 he had pulmonary function testing done. He states a couple days after that, about 5 days ago, he started having worsening shortness of breath and chest tightness. He thought maybe he just overexerted himself during the pulmonary function testing. Symptoms are gotten worse. His sister's house today and told her it was going on who encouraged him to come to the emergency department. No lower extremity swelling. Had dialysis this morning uneventfully. Been taking all his medications. No other recent illness or injury. No other complaints. 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 May End-stage renal disease, Tuesday dialysis, follows with Dr. Mayo on a Diabetes, on insulin Hypertension on hyperlipidemia Anemia Centimeters, EF of 20%, on warfarin Tetanus Vaccination: Unknown Influenza Vaccination: Yes Social History Alcohol Use: No Tobacco Use: No Allergies-Medications (Allergen,Severity, Reaction): Coded Allergies: No Known Allergies (Unverified Allergy, Unknown, 09/24/17) Reported Meds & Prescriptions Reported Meds & Active Scripts Active Levemir Inj (Insulin Detemir) 1,000 unit/ 10 ML Vial 30 Units SQ HS 30 Days Do not mix with any other Insulin. Levemir Inj (Insulin Detemir) 1,000 unit/ 10 ML Vial 25 Units SQ DAILY 30 Days Do not mix with any other Insulin. Brilinta (Ticagrelor) 90 Mg Tab 90 Mg PO BID 30 Days Xanax (Alprazolam) 0.25 Mg Tab 0.25 Mg PO Q8H PRN Nitrostat SL (Nitroglycerin) 0.4 Mg Subl 0.4 Mg SL UNSCH PRN Isosorbide Mononitrate ER (Isosorbide Mononitrate) 60 Mg Tab 60 Mg PO DAILY@07 Amiodarone (Amiodarone HCl) 200 Mg Tab 200 Mg PO BID Coumadin (Warfarin) 5 Mg Tab 5 Mg PO DAILY@1600 Reported Hydralazine HCl 50 Mg Tablet 50 Mg PO TID Novolog Inj (Insulin Aspart) 1,000 Unit/10 Ml Vial Units SQ TID Losartan (Losartan Potassium) 50 Mg Tab 50 Mg PO DAILY Clonidine (Clonidine HCl) 0.1 Mg Tab 0.1 Mg PO BID Carvedilol 25 Mg Tab 25 Mg PO BID Calcium Acetate (Calcium Acetate (Phosphate Bin) 667 Mg Cap 1,334 Mg PO TID Neurontin (Gabapentin) 100 Mg Cap 300 Mg PO TID Review of Systems Except as stated in HPI: all other systems reviewed are Neg Physical Exam Narrative GENERAL: 57-year-old man, chronically ill-appearing, nontoxic. SKIN: Focused skin assessment warm/dry. HEAD: Atraumatic. Normocephalic. EYES: Pupils equal and round. No scleral icterus. No injection or drainage. ENT: No nasal bleeding or discharge. Mucous membranes pink and moist. NECK: Trachea midline. No JVD. CARDIOVASCULAR: Regular rate and rhythm. No murmur appreciated. RESPIRATORY: No accessory muscle use. Clear to auscultation. Breath sounds equal bilaterally. GASTROINTESTINAL: Abdomen soft, non-tender, nondistended. Hepatic and splenic margins not palpable. MUSCULOSKELETAL: No obvious deformities. 1+ pitting edema lower extremities. NEUROLOGICAL: Awake and alert. No obvious cranial nerve deficits. Motor grossly within normal limits. Normal speech. PSYCHIATRIC: Appropriate mood and affect; insight and judgment normal. Data Data Last Documented VS Vital Signs Date Time Temp Pulse Resp B/P (MAP) Pulse Ox O2 Delivery O2 Flow Rate FiO2 09/24/17 20:43 16 95 09/24/17 20:29 65 09/24/17 19:52 98.5 Orders Orders Electrocardiogram (09/24/17 20:32) Complete Blood Count With Diff (09/24/17 20:32) Comprehensive Metabolic Panel (09/24/17 20:32) Magnesium (Mg) (09/24/17 20:32) Prothrombin Time / Inr (Pt) (09/24/17 20:32) Act Partial Throm Time (Ptt) (09/24/17 20:32) Troponin I (09/24/17 20:32) Lipase (09/24/17 20:32) Ecg Monitoring (09/24/17 20:32) Iv Access Insert/Monitor (09/24/17 20:32) Oximetry (09/24/17 20:32) Oxygen Administration (09/24/17 20:32) Sodium Chloride 0.9% Flush (Ns Flush) (09/24/17 20:45) Chest, Pa & Lat (09/24/17 20:32) Nitroglycerin 2% Oint (Nitroglycerin 2% (09/24/17 22:15) Consult Cardiology (09/24/17 ) Bedside Glucose BLAIRE.CSUGAR (09/24/17 22:07) Blood Glucose Goal (Criteria) (09/24/17 22:07) Hypoglycemia 70 Mg/Dl Or < (09/24/17 22:07) Notify Dr: Other (09/24/17 22:07) Dextrose 50% In Gabriel (Vial) Inj (D50w (Vi (09/24/17 22:15) Glucagon Inj (Glucagon Inj) (09/24/17 22:15) Insulin Aspart Supplemtl Scale (Novolog (09/25/17 08:00) Consult Nephrology (09/24/17 ) Admit To Inpatient (09/24/17 ) Vital Signs (Adult) Q4H (09/24/17 22:07) Activity Oob With Assistance (09/24/17 22:07) Director Internal Communications / Telemetry .CONTINUOUS (09/24/17 22:07) Intake + Output BLAIRE.QSHIFT (09/24/17 22:07) Diet 1800 Ada Cons Carb (09/25/17 Breakfast) Sodium Chloride 0.9% Flush (Ns Flush) (09/24/17 22:15) Sodium Chloride 0.9% Flush (Ns Flush) (09/25/17 09:00) Ondansetron Inj (Zofran Inj) (09/24/17 22:15) Comprehensive Metabolic Panel (09/25/17 06:00) Complete Blood Count With Diff (09/25/17 06:00) Troponin I (09/25/17 00:00) Troponin I (09/25/17 06:00) Prothrombin Time / Inr (Pt) (09/25/17 06:00) Pharmacologic Contraindication (09/24/17 22:07) Acetaminophen (Tylenol) (09/24/17 22:15) Acetamin-Hydrocod 325-5 Mg ([place] 5-325 (09/24/17 22:15) Morphine Inj (Morphine Inj) (09/24/17 22:15) Docusate Sodium-Senna (Janett-Colace) (09/25/17 09:00) Magnesium Hydroxide Liq (Milk Of Magnesi (09/24/17 22:15) Sennosides (Senokot) (09/24/17 22:15) Bisacodyl Supp (Dulcolax Supp) (09/24/17 22:15) Lactulose Liq (Lactulose Liq) (09/24/17 22:15) Inpatient Certification (09/24/17 ) (Hub Use Only)Inp Phy Cons/Ref (09/24/17 ) (Hub Use Only)Inp Phy Cons/Ref (09/24/17 ) Admit Order (Ed Use Only) (09/24/17 ) Labs Laboratory Tests Test 09/24/17 20:37 White Blood Count 8.3 TH/MM3 Red Blood Count 3.27 MIL/MM3 Hemoglobin 10.7 GM/DL Hematocrit 31.8 % Mean Corpuscular Volume 97.1 FL Mean Corpuscular Hemoglobin 32.7 PG Mean Corpuscular Hemoglobin Concent 33.6 % Red Cell Distribution Width 17.5 % Platelet Count 147 TH/MM3 Mean Platelet Volume 9.6 FL Neutrophils (%) (Auto) 80.0 % Lymphocytes (%) (Auto) 11.0 % Monocytes (%) (Auto) 6.8 % Eosinophils (%) (Auto) 1.4 % Basophils (%) (Auto) 0.8 % Neutrophils # (Auto) 6.7 TH/MM3 Lymphocytes # (Auto) 0.9 TH/MM3 Monocytes # (Auto) 0.6 TH/MM3 Eosinophils # (Auto) 0.1 TH/MM3 Basophils # (Auto) 0.1 TH/MM3 CBC Comment DIFF FINAL Differential Comment Prothrombin Time 27.5 SEC Prothromb Time International Ratio 2.7 RATIO Activated Partial Thromboplast Time 36.0 SEC Blood Urea Nitrogen 47 MG/DL Creatinine 6.99 MG/DL Random Glucose 129 MG/DL Total Protein 6.9 GM/DL Albumin 3.3 GM/DL Calcium Level 9.0 MG/DL Magnesium Level 2.0 MG/DL Alkaline Phosphatase 122 U/L Aspartate Amino Transf (AST/SGOT) 33 U/L Alanine Aminotransferase (ALT/SGPT) 42 U/L Total Bilirubin 0.6 MG/DL Sodium Level 140 MEQ/L Potassium Level 4.9 MEQ/L Chloride Level 103 MEQ/L Carbon Dioxide Level 27.1 MEQ/L Anion Gap 10 MEQ/L Estimat Glomerular Filtration Rate 8 ML/MIN Troponin I 0.74 NG/ML Lipase 150 U/L [facility] Medical Decision Making Medical Screen Exam Complete: Yes Emergency Medical Condition: Yes Interpretation(s) LABS: CBC remarkable for mild anemia. CMP remarkable for elevated BUN and creatinine Troponin 0 0.74 Lipase normal INR 2.7 Chest x-ray: No acute disease. Differential Diagnosis MT, ACS, heart failure, volume overload, other Narrative Course Medical decision making 57-year-old man, chronically ill with CAD multiple MIs, end-stage renal disease , cardia myopathy, with shortness of breath and chest tightness. Will check labs, x-ray, EKG, reassess. Diagnosis Primary Impression: Ischemic cardiomyopathy Additional Impression: NSTEMI (non-ST elevation myocardial infarction) Admitting Information Admitting Physician Requests: Admit Glenroy Florez MD Sep 24, 2017 20:51
[2017-09-24 21:01] LABS: AUTOMATED NEUTROPHIL # 6.7 TH/MM3 (1.8-7.7); BASOPHIL # 0.1 TH/MM3 (0-0.2); BASOPHIL % 0.8 % (0.0-2.0); EOSINOPHIL # 0.1 TH/MM3 (0-0.4); EOSINOPHIL % 1.4 % (0.0-4.0); HEMATOCRIT 31.8 % (39.0-51.0); HEMOGLOBIN 10.7 GM/DL (13.0-17.0); LYMPHOCYTE # 0.9 TH/MM3 (1.0-4.8); MEAN CELL VOLUME 97.1 FL (80.0-100.0); MEAN CORPUSCULAR HEMOGLOBIN 32.7 PG (27.0-34.0); MEAN CORPUSCULAR HGB CONC 33.6 % (32.0-36.0); MEAN PLATELET VOLUME 9.6 FL (7.0-11.0); MONO % 6.8 % (0.0-8.0); MONOCYTE # 0.6 TH/MM3 (0-0.9); PLATELET COUNT 147 TH/MM3 (150-450); RED BLOOD COUNT 3.27 MIL/MM3 (4.50-5.90); RED CELL DISTRIBUTION WIDTH 17.5 % (11.6-17.2); WHITE BLOOD COUNT 8.3 TH/MM3 (4.0-11.0)
--- NOTE | 2017-09-24 21:05 | RADRPT ---
EXAM DATE/TIME: 09/24/2017 20:52 [place] COMPARISON: CHEST PA & LAT, August 01, 2017, 15:34. INDICATIONS : Chest pain. Shortness of breath. Cough. MEDICAL HISTORY : Hypertension. Congestive heart failure. Myocardial infarction. SURGICAL HISTORY : None. ENCOUNTER: Initial ACUITY: 1 day PAIN SCORE: 6/10 LOCATION: Bilateral chest FINDINGS: Cardiomegaly is noted. No consolidation or effusion. Osseous structures are intact. CONCLUSION: No acute disease. Son Siu MD on September 24, 2017 at 21:03 Board Certified Radiologist. This report was verified electronically.
[2017-09-24 21:12] LABS: INTERNATIONAL NORMALIZED RATIO 2.7 RATIO; PROTHROMBIN TIME - PATIENT 27.5 SEC (9.8-11.6)
[2017-09-24 21:25] LABS: ALBUMIN 3.3 GM/DL (3.4-5.0); AST (GOT) 33 U/L (15-37); BICARBONATE 27.1 MEQ/L (21.0-32.0); BLOOD UREA NITROGEN 47 MG/DL (7-18); CHLORIDE 103 MEQ/L (98-107); CREATININE 6.99 MG/DL (0.60-1.30); GLOMERULAR FILTRATION RATE 8 ML/MIN (>89); GLUCOSE,RANDOM 129 MG/DL (74-106); SODIUM (NA) 140 MEQ/L (136-145)
[2017-09-24 21:30] LABS: ALKALINE PHOSPHATASE 122 U/L (45-117); ALT (GPT) 42 U/L (12-78); TOTAL BILIRUBIN ADULT 0.6 MG/DL (0.2-1.0); TOTAL PROTEIN 6.9 GM/DL (6.4-8.2)
[2017-09-24 21:40] LABS: TROPONIN I 0.74 NG/ML (0.02-0.05)
[2017-09-24] MEDS ORDERED: GLUCAGON 1 MG/ML VIAL OTHER PRN (22:15)
[2017-09-24] MEDS ORDERED: MAGNESIUM HYDROXIDE SUSP 30 ML CUP PO PRN (22:15)
[2017-09-24] MEDS ORDERED: MORPHINE SULFATE 2 MG/ML SYRINGE IV PUSH PRN (22:15)
[2017-09-24] MEDS ORDERED: ONDANSETRON HCL 4 MG/2 ML VIAL IVP PRN (22:15)
[2017-09-24] MEDS ORDERED: ACETAMINOPHEN 325 MG TAB PO PRN (22:15)
[2017-09-24] MEDS ORDERED: BISACODYL 10 MG SUPP RECTAL PRN (22:15)
[2017-09-24] MEDS ORDERED: SODIUM CHLORIDE 0.9% FLUSH 10 ML FLUSH IV FLUSH PRN (22:15)
[2017-09-24] MEDS ORDERED: NITROGLYCERIN 2% OINT 1 GM PACKET TOPICAL PRN (22:15)
[2017-09-24] MEDS ORDERED: SENNOSIDES 8.6 MG TAB PO PRN (22:15)
[2017-09-24] MEDS ORDERED: DEXTROSE 50% IN WATER 50 ML VIAL(D50) IV PUSH PRN (22:15)
[2017-09-24] MEDS: ACETAMINOPHEN/HYDROcodone 325 MG/5 MG TAB PO PRN (23:32)
[2017-09-24 23:34] VITALS: BP 99/58; PULSE 68; RESP 16; O2SAT 99
[2017-09-25] VITALS (25 sets, daily range): BP systolic 85–121; BP diastolic 51–77; PULSE 58–66; RESP 16–18; TEMP 97.4–98.4; O2SAT 92–99
[2017-09-25] MEDS ORDERED: ALPRAZolam 0.25 MG TAB PO PRN (01:15)
--- NOTE | 2017-09-25 01:18 | HHI.HP ---
[facility] Service [facility] Primary Care Physician Noam Bunn MD Admission Diagnosis NSTEMI Diagnoses: (1) NSTEMI (non-ST elevation myocardial infarction) Diagnosis: Principal (2) Ischemic cardiomyopathy Diagnosis: Principal (3) ESRD (end stage renal disease) Diagnosis: Principal (4) DM (diabetes mellitus) Diagnosis: Principal Travel History International Travel<30 Days: No Contact w/Intl Traveler <30 Da: No Traveled to Known Affected Are: No History of Present Illness This is a 57-year-old male with a PMH of HTN, CAD, Ischemic Cardiomyopathy ( Echo 08/03/2017 w/ EF 40-45%), DM and ESRD on HD T//Tue who presented to the ER w/ complaints of chest pain and SOB. Recent admit for similar complaints 08/01- found to have NSTEMI, s/p Cath w/ PCI of LM/LAD/LCx, reports on Brilinta and Coumadin, compliant w/ meds. States doing well after discharge, but had PFTs done 09/16/17 and developed severe chest pain few days after. Pain is substernal, 8/10, non-radiating, associated w/ SOB. On arrival, BP 106/66, HR 62, O2 sat 98% RA, Afebrile. CBC at baseline. Chemistry essentially at baseline. Troponin 0.74. INR 2.7. CXR with no acute findings. Currently chest pain free. Follows w/ Dr. May w/ Cardiology and Dr. Corona w/ Nephro Review of Systems Except as stated in HPI: all other systems reviewed are Neg ROS: 14 point review of systems otherwise negative. Past Family Social History Past Medical History PMH: HTN, CAD, Ischemic Cardiomyopathy (Echo 08/03/2017 w/ EF 40-45%), DM and ESRD on HD T//Tue Past Surgical History PAST SURGICAL HISTORY: Cataract Surgery, Cardiac Stent, AV Fistula, Amputation Right Fifth Toe Allergies: Coded Allergies: No Known Allergies (Unverified Allergy, Unknown, 09/24/17) Family History PAST FAMILY HISTORY: Reviewed. No h/o DM or CAD Social History PAST SOCIAL HISTORY: Negative for alcohol, tobacco or drugs. Physical Exam Vital Signs Vital Signs Date Time Temp Pulse Resp B/P (MAP) Pulse Ox O2 Delivery O2 Flow Rate FiO2 09/24/17 23:34 68 16 99/58 (72) 99 09/24/17 20:43 16 95 09/24/17 20:29 65 16 130/63 (85) 96 09/24/17 19:52 98.5 62 24 106/66 (79) 98 Physical Exam PE: GENERAL: Pleasant middle-age male in no acute distress. HEENT: PERRLA, EOMI. No scleral icterus or conjunctival pallor. No lid lag or facial droop. CARDIOVASCULAR: Regular rate and rhythm. No obvious murmurs to auscultation. No chest tenderness to palpation. RESPIRATORY: No obvious rhonchi or wheezing. Clear to auscultation. Breath sounds equal bilaterally. GASTROINTESTINAL: Abdomen soft, non-tender, nondistended. BS normal. MUSCULOSKELETAL: Extremities without clubbing, cyanosis, 1+ edema. No obvious deformities. NEUROLOGICAL: Awake, alert and oriented x4. No focal neurologic deficits. Moving both upper and lower extremities spontaneously. Laboratory Laboratory Tests Test 09/24/17 20:37 09/24/17 23:45 White Blood Count 8.3 Red Blood Count 3.27 Hemoglobin 10.7 Hematocrit 31.8 Mean Corpuscular Volume 97.1 Mean Corpuscular Hemoglobin 32.7 Mean Corpuscular Hemoglobin Concent 33.6 Red Cell Distribution Width 17.5 Platelet Count 147 Mean Platelet Volume 9.6 Neutrophils (%) (Auto) 80.0 Lymphocytes (%) (Auto) 11.0 Monocytes (%) (Auto) 6.8 Eosinophils (%) (Auto) 1.4 Basophils (%) (Auto) 0.8 Neutrophils # (Auto) 6.7 Lymphocytes # (Auto) 0.9 Monocytes # (Auto) 0.6 Eosinophils # (Auto) 0.1 Basophils # (Auto) 0.1 CBC Comment DIFF FINAL Differential Comment Prothrombin Time 27.5 Prothromb Time International Ratio 2.7 Activated Partial Thromboplast Time 36.0 Blood Urea Nitrogen 47 Creatinine 6.99 Random Glucose 129 Total Protein 6.9 Albumin 3.3 Calcium Level 9.0 Magnesium Level 2.0 Alkaline Phosphatase 122 Aspartate Amino Transf (AST/SGOT) 33 Alanine Aminotransferase (ALT/SGPT) 42 Total Bilirubin 0.6 Sodium Level 140 Potassium Level 4.9 Chloride Level 103 Carbon Dioxide Level 27.1 Anion Gap 10 Estimat Glomerular Filtration Rate 8 Troponin I 0.74 0.57 Lipase 150 Result Diagram: 09/24/17203609/24/172036 Caprini VTE Risk Assessment Caprini VTE Risk Assessment: Mod/High Risk (score >= 2) Caprini Risk Assessment Model Point Value = 1 Point Value = 2 Point Value = 3 Point Value = 5 Age 41-60 Minor surgery BMI > 25 kg/m2 Swollen legs Varicose veins or History of unexplained or recurrent spontaneous Oral contraceptives or hormone replacement Sepsis (< 1 month) Serious lung disease, including pneumonia (< 1 month) Abnormal pulmonary function Acute myocardial infarction Congestive heart failure (< 1 month) History of inflammatory bowel disease Medical patient at bed rest Age 61-74 Arthroscopic surgery Major open surgery (> 45 min) Laparoscopic surgery (> 45 min) Malignancy Confined to bed (> 72 hours) Immobilizing plaster cast Central venous access Age >= 75 History of VTE Family history of VTE Factor V Leiden Prothrombin [id number] Lupus anticoagulant Anticardiolipin antibodies Elevated serum homocysteine Heparin-induced thrombocytopenia Other congenital or acquired thrombophilia Stroke (< 1 month) Elective arthroplasty Hip, pelvis, or leg fracture Acute spinal cord injury (< 1 month) Prophylaxis Regimen Total Risk Factor Score Risk Level Prophylaxis Regimen 0-1 Low Early ambulation 2 Moderate Order ONE of the following: *Sequential Compression Device (SCD) *Heparin 5000 units SQ BID 3-4 Higher Order ONE of the following medications: *Heparin 5000 units SQ TID *Enoxaparin/Lovenox 40 mg SQ daily (WT < 150 kg, CrCl > 30 mL/min) *Enoxaparin/Lovenox 30 mg SQ daily (WT < 150 kg, CrCl > 10-29 mL/min) *Enoxaparin/Lovenox 30 mg SQ BID (WT < 150 kg, CrCl > 30 mL/min) AND/OR *Sequential Compression Device (SCD) 5 or more Highest Order ONE of the following medications: *Heparin 5000 units SQ TID (Preferred with Epidurals) *Enoxaparin/Lovenox 40 mg SQ daily (WT < 150 kg, CrCl > 30 mL/min) *Enoxaparin/Lovenox 30 mg SQ daily (WT < 150 kg, CrCl > 10-29 mL/min) *Enoxaparin/Lovenox 30 mg SQ BID (WT < 150 kg, CrCl > 30 mL/min) AND *Sequential Compression Device (SCD) Assessment and Plan Problem List: (1) NSTEMI (non-ST elevation myocardial infarction) ICD Code: I21.4 - Non-ST elevation (NSTEMI) myocardial infarction Status: Acute (2) Ischemic cardiomyopathy ICD Code: I25.5 - Ischemic cardiomyopathy Status: Chronic (3) ESRD (end stage renal disease) ICD Code: N18.6 - End stage renal disease Status: Acute (4) DM (diabetes mellitus) ICD Code: E11.9 - Type 2 diabetes mellitus without complications Assessment and Plan A/P: 1. NSTEMI: c/o chest pain, recent NSTEMI s/p PCI, now w/ Trop 0.74, likely related to chronic disease, however will continue w/ treatment for NSTEMI. INR 2.7 on Coumadin, hold Heparin. NTG/Morphine prn. Check serial cardiac enzymes. Follows w/ Dr. May, will consult for further recommendations. Resume home medications. 2. Ischemic Cardiomyopathy: Echo 08/03/17 w/ EF 40-45%, CXR w/ no acute findings , images reviewed by me. Resume home medications. Monitor I/O. 3. DM: Sliding scale w/ Accu-Cheks. Hold Insulin for possible cardiac intervention. 4. ESRD on HD: T//Tue, had HD today w/o complications. Follows w/ Dr. Corona, will consult for further management. 5. DVT Prophylaxis: On Coumadin/Brilinta. Repeat INR in am. 6. Social work for d/c planning as needed. 7. Case discussed w/ ER physician at length, labs/records/imaging reviewed by me. Physician Certification 2 Midnight Certification Type: Admission for Inpatient Services Order for Inpatient Services The services are ordered in accordance with Medicare regulations or non- Medicare payer requirements, as applicable. In the case of services not specified as inpatient-only, they are appropriately provided as inpatient services in accordance with the 2-midnight benchmark. Estimated LOS (days): 2 days is the estimated time the patient will need to remain in the hospital, assuming treatment plan goals are met and no additional complications. Post-Hospital Plan: Not yet determined Nusrat Ndiaye MD Sep 25, 2017 01:18
[2017-09-25] MEDS ORDERED: SODIUM CHLORID 0.9% 500 ML INJ 500 ML IV ONE (02:45)
[2017-09-25] MEDS ORDERED: DEXT 5%-NACL 0.9% 500 ML INJ 500 ML IV ONE (04:00)
[2017-09-25] MEDS ORDERED: ISOSORBIDE MONONITRATE 60 MG CR TAB (IMDUR) PO SCH (07:00)
[2017-09-25 08:06] LABS: ALKALINE PHOSPHATASE 115 U/L (45-117); ALT (GPT) 36 U/L (12-78); AST (GOT) 27 U/L (15-37); BLOOD UREA NITROGEN 66 MG/DL (7-18); CALCIUM 8.6 MG/DL (8.5-10.1); CHLORIDE 103 MEQ/L (98-107); CREATININE 8.01 MG/DL (0.60-1.30); GLOMERULAR FILTRATION RATE 7 ML/MIN (>89); GLUCOSE,RANDOM 247 MG/DL (74-106); SODIUM (NA) 137 MEQ/L (136-145); TOTAL BILIRUBIN ADULT 0.5 MG/DL (0.2-1.0); TOTAL PROTEIN 6.5 GM/DL (6.4-8.2); TROPONIN I 0.57 NG/ML (0.02-0.05)
[2017-09-25] MEDS: INSULIN ASPART SUPPLEMENTAL SCALE SQ SCH ×4 (08:22→21:00)
[2017-09-25 08:50] LABS: AUTOMATED NEUTROPHIL # 6.1 TH/MM3 (1.8-7.7); BASOPHIL # 0.1 TH/MM3 (0-0.2); BASOPHIL % 0.8 % (0.0-2.0); EOSINOPHIL % 0.2 % (0.0-4.0); HEMATOCRIT 31.3 % (39.0-51.0); HEMOGLOBIN 10.2 GM/DL (13.0-17.0); LYMPH % 7.6 % (9.0-44.0); LYMPHOCYTE # 0.6 TH/MM3 (1.0-4.8); MEAN CORPUSCULAR HEMOGLOBIN 32.2 PG (27.0-34.0); MEAN CORPUSCULAR HGB CONC 32.5 % (32.0-36.0); MEAN PLATELET VOLUME 9.6 FL (7.0-11.0); MONO % 7.2 % (0.0-8.0); MONOCYTE # 0.5 TH/MM3 (0-0.9); NEUT % 84.2 % (16.0-70.0); PLATELET COUNT 147 TH/MM3 (150-450); RED BLOOD COUNT 3.16 MIL/MM3 (4.50-5.90); WHITE BLOOD COUNT 7.2 TH/MM3 (4.0-11.0)
[2017-09-25] MEDS ORDERED: CARVEDILOL 12.5 MG TAB PO SCH (09:00)
[2017-09-25] MEDS ORDERED: hydrALAZINE HCL 50 MG TAB PO SCH (09:00)
[2017-09-25] MEDS ORDERED: AMIODARONE 200 MG TAB PO SCH (09:00)
[2017-09-25] MEDS ORDERED: cloNIDine HCL 0.1 MG TAB PO SCH (09:00)
[2017-09-25] MEDS: GABAPENTIN 100 MG CAP PO SCH ×3 (09:04→17:56)
[2017-09-25] MEDS: DOCUSATE SODIUM 50 MG/SENNA 8.6 MG TAB PO SCH ×2 (09:04→20:56)
[2017-09-25] MEDS: TICAGRELOR 90 MG TAB PO SCH ×2 (09:05→20:56)
[2017-09-25] MEDS: CALCIUM ACETATE 667 MG CAP PO SCH ×3 (09:05→17:56)
[2017-09-25] MEDS: SODIUM CHLORIDE 0.9% FLUSH 10 ML FLUSH IV FLUSH SCH ×2 (09:05→20:57)
[2017-09-25 09:08] LABS: INTERNATIONAL NORMALIZED RATIO 3.4 RATIO; PROTHROMBIN TIME - PATIENT 34.7 SEC (9.8-11.6)
--- NOTE | 2017-09-25 12:32 | EKG ---
Date Performed: 09/24/2017 Time Performed: 20:04:36 PTAGE: 57 years EKG: Sinus rhythm MARKED LEFT AXIS DEVIATION INTRAVENTRICULAR CONDUCTION DELAY ABNORMAL ECG PREVIOUS TRACING : 08/02/2017 05.47 Since the previous tracing, no significant change noted DOCTOR: Jamal Mercado Interpretating Date/Time 09/25/2017 12:30:11
--- NOTE | 2017-09-25 15:54 | MB ---
cc: Ranjit Grossman MD DATE: 09/25/2017 REASON FOR CONSULTATION: Evaluation of chest pain and elevated troponin. HISTORY OF PRESENT ILLNESS: Dandy Singleton is a 57-year-old male with severe coronary disease, who is now readmitted with chest pain and elevated troponin. He has been followed by Dr. May. He had a complex Impella support intervention of the left main, LAD and circumflex 04/20/2017. He developed early restenosis and had a repeat revascularization procedure 08/06/2017 involving a laser atherectomy, cutting balloon and balloon angioplasty. He comes in now stating that for about the past week he has been having increased shortness of breath and frequent prolonged episodes of substernal pressure. His initial troponin was 0.74. He took his medicines at 2:00 this morning and this morning when he got here, his blood pressure was low, so most of his medication have not been given today. His medication list is charted. He is on Brilinta and warfarin. He is not currently on aspirin. PAST MEDICAL HISTORY: Includes coronary artery disease, cardiomyopathy, CHF, stage 5 kidney disease on dialysis, diabetes, diabetic retinopathy, hyperlipidemia, hypertensive heart disease, obesity and total occlusion of the right coronary artery. PAST SURGICAL HISTORY: Includes amputation, right 5th toe, AV fistula right upper extremity, previous catheterization, previous stents, cataract surgery. MEDICATIONS: Medication list as charted. ALLERGIES: None. FAMILY HISTORY: Positive for coronary artery disease. SOCIAL HISTORY: Nonsmoker. PHYSICAL EXAMINATION: GENERAL: Exam reveals an obese, pleasant white male, does not appear to be in acute distress. VITAL SIGNS: Charted. HEENT: Unremarkable. NECK: No JVD. No bruits. CHEST: Diminished breath sounds. No wheezes or rales. CARDIAC: Normal first and second heart sounds, regular rate and rhythm with a 2/6 systolic ejection murmur. ABDOMEN: Soft. EXTREMITIES: Reveal mildly diminished pulses. LABORATORY DATA: EKG shows sinus rhythm, left axis deviation, first degree AV block, left bundle branch block. Initial troponin was 0.71, repeat 0.57, hematocrit 31.3. INR 3.4. A chest x-ray from last night shows no acute disease. IMPRESSION: Recurrent acute coronary syndrome, possible non-STEMI on this man who has had very complex disease and complex interventions. PLAN: I am adding aspirin. I am going to wait on starting heparin because his INR is elevated. I will make him n.p.o. after midnight until Dr. May has made a decision as to when he would like to study him next. He will take over in the a.m. I am also adding nitro paste. Ranjit Grossman MD VEGera/TL , 03:34 PM , 03:53 PM
[2017-09-25] MEDS: ASPIRIN 81 MG CHEW TAB PO SCH (16:36)
[2017-09-25] MEDS: NITROGLYCERIN 2% OINT 1 GM PACKET TOPICAL SCH ×2 (17:56→23:00)
--- NOTE | 2017-09-25 18:50 | MB ---
cc: Vandana Corona MD DATE: 09/25/2017 REASON FOR CONSULTATION: End-stage renal disease, on hemodialysis for management. HISTORY OF PRESENT ILLNESS: This is a 57-year-old male with past medical history of ischemic heart disease, hypertension, cardiomyopathy, end-stage renal disease, on hemodialysis 3 times per week, diabetes mellitus, came to the hospital with a complaint of recurrent chest pain. I was called to see the patient because of management of dialysis. The patient has a known history of ischemic heart disease and congestive heart failure, and he had cardiac catheterization and stenting done 2 or 3 times in the last few months, and he was admitted in July and now, he has recurrent chest pain. It started 4 or 5 days ago, and it was mainly retrosternal and slightly on the right side. Not related to exertion, nonradiating, associated with some shortness of breath. He denies any nausea, vomiting. There is no history of diarrhea, no abdominal pain. He currently does not have any chest pain. The patient had his last hemodialysis done on Tuesday and according to him, he has not been missing any dialysis treatments. He has been on dialysis Tuesday, and Tuesday. PAST MEDICAL HISTORY: Hypertension, diabetes mellitus, ischemic heart disease, congestive heart failure, end-stage renal disease, on hemodialysis 3 times per week, chronic anemia. PAST SURGICAL HISTORY: History of AV fistula surgery, cardiac catheterization with stent placement, cataract surgery, right fifth toe amputation. REVIEW OF SYSTEMS: Denied any history of fever, no sore throat. Has this recurrent retrosternal chest pain associated with shortness of breath. There is no nausea, vomiting. No palpitation. No cough. No abdominal pain. No history of diarrhea. SOCIAL HISTORY: The patient is single. There is no history of smoking or alcoholism. FAMILY HISTORY: Noncontributory. ALLERGIES: HE HAS NO KNOWN DRUG ALLERGIES. MEDICATIONS: Currently, he is on following medications: Brilinta 90 mg b.i.d., aspirin 81 mg once a day, carvedilol 25 mg q. 12 hours, nitroglycerin 1 inch topical, PhosLo 1334 mg t.i.d., Neurontin 100 mg t.i.d., glucagon as needed, Zofran as needed, Tylenol as needed, morphine as needed, as needed, Xanax as needed. PHYSICAL EXAMINATION: GENERAL: The patient is awake, alert. He is not in acute distress. VITAL SIGNS: His last blood pressure is 131/75. His blood pressure was on the lower side when he came to the hospital and the lowest recorded was 85/55. Temperature is 97.8. HEENT: Pupils are mid, constricted. Nonicteric sclerae. Conjunctivae pale. NECK: Supple. JVD is not elevated. LUNGS: He has bilateral good air entry with occasional wheezing. HEART: S1, S2. Regular rhythm. ABDOMEN: Soft, lax. There is no tenderness. Bowel sounds positive. EXTREMITIES: He has mild edema in the legs. INVESTIGATIONS: WBC count 7.2, hemoglobin 10.2, platelet count of 147, neutrophils 84.2%. Sodium 137, potassium 5.3, repeat one was 5.0, chloride 103, bicarbonate 19, BUN 66, creatinine 8.0, glucose 247. AST, ALT normal. Troponin is 0.57. The one before that was 0.57 also. Total protein 6.5 with albumin of 3.0. INR 3.4. IMAGING STUDIES: The patient has a chest x-ray done yesterday and it shows lung jacob clear. ASSESSMENT AND PLAN: 1. Recurrent chest pain with a history of ischemic heart disease and possible non-ST elevation myocardial infarction. 2. End-stage renal disease, on hemodialysis. 3. History of hypertension and now has a low blood pressure. 4. Diabetes mellitus. 5. Mild anemia. 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 He possibly will need some more cardiac workup. At present, he is on heparin. At present, his INR is elevated. He is on aspirin and he is chest pain free. Potassium was elevated at 5.3, but repeated one is 5.0. He is due for dialysis on , but I will reevaluate him tomorrow and see if he needs dialysis sooner than that. Thank you for the consultation. I will follow the patient while he is in the hospital. MD TORIN Hernadez/SHANKAR , 06:22 PM , 06:48 PM
[2017-09-25] MEDS: CARVEDILOL 12.5 MG TAB PO SCH (20:56)
[2017-09-26] VITALS (22 sets, daily range): BP systolic 108–119; BP diastolic 58–76; PULSE 52–62; RESP 16–18; TEMP 97.7–98; O2SAT 97–98
[2017-09-26] MEDS: NITROGLYCERIN 2% OINT 1 GM PACKET TOPICAL SCH ×3 (06:16→17:53)
[2017-09-26 07:45] LABS: HEMATOCRIT 30.3 % (39.0-51.0); HEMOGLOBIN 10.1 GM/DL (13.0-17.0); MEAN CELL VOLUME 97.5 FL (80.0-100.0); MEAN CORPUSCULAR HEMOGLOBIN 32.4 PG (27.0-34.0); MEAN CORPUSCULAR HGB CONC 33.3 % (32.0-36.0); MEAN PLATELET VOLUME 9.7 FL (7.0-11.0); PLATELET COUNT 138 TH/MM3 (150-450); RED BLOOD COUNT 3.11 MIL/MM3 (4.50-5.90); RED CELL DISTRIBUTION WIDTH 17.8 % (11.6-17.2)
[2017-09-26 07:55] LABS: BICARBONATE 20.8 MEQ/L (21.0-32.0); CALCIUM 9.2 MG/DL (8.5-10.1); CREATININE 9.94 MG/DL (0.60-1.30)
[2017-09-26] MEDS: DOCUSATE SODIUM 50 MG/SENNA 8.6 MG TAB PO SCH ×2 (08:38→21:04)
[2017-09-26] MEDS: CARVEDILOL 12.5 MG TAB PO SCH ×2 (08:38→21:04)
[2017-09-26] MEDS: TICAGRELOR 90 MG TAB PO SCH ×2 (08:38→21:04)
[2017-09-26] MEDS: CALCIUM ACETATE 667 MG CAP PO SCH ×3 (08:38→17:53)
[2017-09-26] MEDS: ASPIRIN 81 MG CHEW TAB PO SCH (08:38)
[2017-09-26] MEDS: GABAPENTIN 100 MG CAP PO SCH ×3 (08:38→17:53)
[2017-09-26] MEDS: SODIUM CHLORIDE 0.9% FLUSH 10 ML FLUSH IV FLUSH SCH ×2 (08:39→21:05)
[2017-09-26] MEDS: INSULIN ASPART SUPPLEMENTAL SCALE SQ SCH ×4 (08:39→21:05)
--- NOTE | 2017-09-26 12:08 | HHI.PR ---
Subjective Remarks Denies chest pain this morning. Mild dyspnea. Objective Vitals Vital Signs Date Time Temp Pulse Resp B/P (MAP) Pulse Ox O2 Delivery O2 Flow Rate FiO2 09/26/17 07:30 97.8 62 18 119/76 (90) 97 09/26/17 07:30 62 09/26/17 03:04 58 16 108/58 (75) 98 09/26/17 03:00 57 09/26/17 02:00 56 09/26/17 01:00 60 09/26/17 00:00 58 09/25/17 23:20 58 16 109/67 (81) 97 09/25/17 23:00 59 09/25/17 22:00 60 09/25/17 21:00 62 09/25/17 20:26 98.4 64 16 115/69 (84) 99 09/25/17 20:00 64 09/25/17 19:00 61 09/25/17 18:00 62 09/25/17 17:00 63 09/25/17 16:00 62 09/25/17 15:14 97.8 64 16 121/75 (90) 98 09/25/17 15:00 65 09/25/17 14:00 64 09/25/17 13:00 64 I/O 09/25/17 09/25/17 09/25/17 09/26/17 09/26/17 09/26/17 07:00 15:00 23:00 07:00 15:00 23:00 Intake Total 720 ml 240 ml Output Total 250 ml 100 ml Balance 470 ml 140 ml Intake Oral 720 ml 240 ml Output Urine Total 250 ml 100 ml # Bowel Movements 1 0 Result Diagram: 09/26/17 0600 09/26/17 0600 Objective Remarks GENERAL: This is a well-nourished, well-developed patient, in no apparent distress. CARDIOVASCULAR: Normal rate and regular rhythm without murmurs, gallops, or rubs. RESPIRATORY: Good respiratory efforts. Breath sounds equal and clear to auscultation bilaterally. GASTROINTESTINAL: Abdomen soft, non-tender, non-distended. Normal active bowel sounds MUSCULOSKELETAL: Trace bilateral lower extremity edema. NEURO: Alert & Oriented x4 to person, place, time, situation. Moves all ext x4 PSYCH: Appropriate mood and affect. A/P Problem List: (1) NSTEMI (non-ST elevation myocardial infarction) ICD Code: I21.4 - Non-ST elevation (NSTEMI) myocardial infarction Status: Acute (2) Ischemic cardiomyopathy ICD Code: I25.5 - Ischemic cardiomyopathy Status: Chronic (3) ESRD (end stage renal disease) ICD Code: N18.6 - End stage renal disease Status: Acute (4) DM (diabetes mellitus) ICD Code: E11.9 - Type 2 diabetes mellitus without complications Assessment and Plan 57-year-old male with: 1. NSTEMI: c/o chest pain, recent NSTEMI s/p PCI, now w/ Trop 0.74, likely related to chronic disease, however will continue w/ treatment for NSTEMI. INR 3.4 on Coumadin, hold Heparin. NTG/Morphine prn. -Nitropaste. Further plans per cardiology. 2. Ischemic Cardiomyopathy: Echo 08/03/17 w/ EF 40-45%, CXR w/ no acute findings. Resume home medications. Monitor I/O. 3. DM: Sliding scale w/ Accu-Cheks. 4. ESRD on HD: T//Tue. Nephrology, Dr. Corona following. HD for AM 5. DVT Prophylaxis: On Coumadin/Brilinta. Follow INR in am. Denita Rothman MD Sep 26, 2017 12:08
--- NOTE | 2017-09-26 14:44 | HHI.NPPN ---
Subjective General Problems: Anemia, Edema, Heart Disease, Hypertension Renal Failure: End Stage Renal Disease History of Present Illness 57-year-old male with past medical history of ischemic heart disease, hypertension, cardiomyopathy, end-stage renal disease, on hemodialysis 3 times per week, diabetes mellitus, came to the hospital with a complaint of recurrent chest pain. I was called to see the patient because of management of dialysis. The patient has a known history of ischemic heart disease and congestive heart failure. Additional Remarks Patient is alert, no chest pain, occ. has SOB, but on room air. Review of Systems General Constitutional: Fatigue Respiratory Lungs: SOB, Cough Cardiovascular Cardiac: Chest Pain, [place] Objective Data Data Vital Signs Date Time Temp Pulse Resp B/P (MAP) Pulse Ox O2 Delivery O2 Flow Rate FiO2 09/26/17 12:00 97.7 58 16 116/67 (83) 98 09/26/17 07:30 97.8 62 18 119/76 (90) 97 09/26/17 07:30 62 09/26/17 03:04 58 16 108/58 (75) 98 09/26/17 03:00 57 09/26/17 02:00 56 09/26/17 01:00 60 09/26/17 00:00 58 09/25/17 23:20 58 16 109/67 (81) 97 09/25/17 23:00 59 09/25/17 22:00 60 09/25/17 21:00 62 09/25/17 20:26 98.4 64 16 115/69 (84) 99 09/25/17 20:00 64 09/25/17 19:00 61 09/25/17 18:00 62 09/25/17 17:00 63 09/25/17 16:00 62 09/25/17 15:14 97.8 64 16 121/75 (90) 98 09/25/17 15:00 65 -: 09/26/17 0600 09/26/17 0600 Physical Exam General Appearance: No Acute Distress, Comfortable Eyes Eye Exam: Pupils Equal Throat Throat Exam: Oral Mucosa [place] & Moist Neck Neck Exam: Neck Supple Pulmonary Resp Exam: Breath Sounds Equal, Rhonchi, Decreased Bases Cardiology CV Exam: Regular, Normal Sinus Rhythm Gastrointestinal/Abdomen GI Exam: Soft, Non-Tender, Bowel Sounds Present Extremeties Extremities Exam: Trace Edema Neurologic Neuro Exam: Alert, Awake, Oriented Psychiatric Psych Exam: Appropriate Responses Assessment/Plan Assessment Summary: Anemia of CKD, CHF, Hypertension, End Stage Renal Disease Problem List: (1) DM (diabetes mellitus) ICD Codes: E11.9 - Type 2 diabetes mellitus without complications (2) Ischemic cardiomyopathy ICD Codes: I25.5 - Ischemic cardiomyopathy Status: Chronic (3) NSTEMI (non-ST elevation myocardial infarction) ICD Codes: I21.4 - Non-ST elevation (NSTEMI) myocardial infarction Status: Acute (4) Hyperlipidemia ICD Codes: E78.5 - Hyperlipidemia, unspecified Status: Chronic (5) Anemia ICD Codes: D64.9 - Anemia, unspecified Status: Chronic (6) HTN (hypertension) ICD Codes: I10 - Essential (primary) hypertension Status: Chronic (7) Multi-vessel coronary artery stenosis ICD Codes: I25.10 - Atherosclerotic heart disease of [place] coronary artery without angina pectoris (8) ESRD on hemodialysis ICD Codes: N18.6 - End stage renal disease; Z99.2 - Dependence on renal dialysis Plan Patient has significant IHD, and has low EF. Now admitted with chest pain and elevated Troponin. Possibly NTEMI. Waiting for Cardiology follow up. K is now 5.1, HD will be in AM. Remove fluid as tolerated. Jeana Corona MD Sep 26, 2017 14:44
[2017-09-26] MEDS ORDERED: SODIUM CHLOR 0.9% 1000 ML INJ 1,000 ML OTHER PRN ×2 (14:46)
[2017-09-26] MEDS ORDERED: SODIUM CHLOR 0.9% 1000 ML INJ 1,000 ML IV PRN (14:46)
[2017-09-26] MEDS ORDERED: GENTAMICIN SULFATE 20 MG/2 ML VIAL OTHER PRN (15:00)
[2017-09-26] MEDS ORDERED: SODIUM CHLORIDE 0.9% FLUSH 10 ML FLUSH IV FLUSH PRN (15:00)
[2017-09-26] MEDS ORDERED: MANNITOL 12.5 GM/50 ML VIAL IV PRN (15:00)
[2017-09-26] MEDS ORDERED: ACETAMINOPHEN 325 MG TAB PO PRN (15:00)
[2017-09-26] MEDS ORDERED: diphenhydrAMINE HCL 25 MG CAP PO PRN (15:00)
[2017-09-26] MEDS ORDERED: HEPARIN SODIUM - IV 10,000 UNITS/10 ML VIAL PRN (15:00)
[2017-09-26] MEDS ORDERED: NITROGLYCERIN 0.4 MG SL 25 TABS/BTL SL PRN (15:00)
[2017-09-26] MEDS ORDERED: cloNIDine HCL 0.1 MG TAB PO PRN (15:00)
[2017-09-26] MEDS ORDERED: ONDANSETRON HCL 4 MG/2 ML VIAL IV PUSH PRN (15:00)
[2017-09-26] MEDS ORDERED: HEPARIN SODIUM - IV 10,000 UNITS/10 ML VIAL IV FLUSH PRN (15:00)
--- NOTE | 2017-09-26 18:39 | PD.CARD.PN ---
Subjective Subjective Remarks No events overnight No chest pain, mild SOB when up and moving Objective Medications Current Medications Medications (Trade) Dose Ordered Sig/Taj Route Start Time Stop Time Status Last Admin (Nitroglycerin 2% Oint) 0.5 inch Q6HR PRN TOPICAL 09/24/17 22:15 (D50w (Vial) Inj) 50 ml UNSCH PRN IV PUSH 09/24/17 22:15 (Glucagon Inj) 1 mg UNSCH PRN OTHER 09/24/17 22:15 (NovoLOG SUPPLEMENTAL SCALE) 1 ACHS SLIDING SCALE SQ 09/25/17 08:00 09/26/17 17:53 (NS Flush) 2 ml UNSCH PRN IV FLUSH 09/24/17 22:15 (NS Flush) 2 ml BID IV FLUSH 09/25/17 09:00 09/26/17 08:39 (Zofran Inj) 4 mg Q6H PRN IVP 09/24/17 22:15 (Tylenol) 650 mg Q6H PRN PO 09/24/17 22:15 ([place] 5-325 Mg) 1 tab Q4H PRN PO 09/24/17 22:15 09/24/17 23:32 (Morphine Inj) 2 mg Q3H PRN IV PUSH 09/24/17 22:15 (Janett-Colace) 1 tab BID PO 09/25/17 09:00 09/26/17 08:38 (Milk Of Magnesia Liq) 30 ml Q12H PRN PO 09/24/17 22:15 (Senokot) 17.2 mg Q12H PRN PO 09/24/17 22:15 (Dulcolax Supp) 10 mg DAILY PRN RECTAL 09/24/17 22:15 (Lactulose Liq) 30 ml DAILY PRN PO 09/24/17 22:15 (Xanax) 0.25 mg Q8H PRN PO 09/25/17 01:15 (Cordarone) 200 mg BID PO 09/25/17 09:00 Future Hold (Phoslo) 1,334 mg TID PO 09/25/17 09:00 09/26/17 17:53 (Catapres) 0.1 mg BID PO 09/25/17 09:00 Future Hold (Neurontin) 100 mg TID PO 09/25/17 09:00 09/26/17 17:53 (Apresoline) 50 mg TID PO 09/25/17 09:00 Future Hold (Imdur) 60 mg DAILY@07 PO 09/25/17 07:00 Future Hold (Brilinta) 90 mg BID PO 09/25/17 09:00 09/26/17 08:38 (Nitroglycerin 2% Oint) 1 inch Q6HR TOPICAL 09/25/17 18:00 09/26/17 17:53 (Coreg) 25 mg Q12HR PO 09/25/17 21:00 09/26/17 08:38 (Aspirin Chew) 81 mg DAILY PO 09/25/17 15:30 09/26/17 08:38 Sodium Chloride 1,000 ml @ 0 mls/hr Q0M PRN OTHER 09/26/17 14:46 (Heparin Inj) 8,000 units UNSCH PRN IV FLUSH 09/26/17 15:00 Sodium Chloride 1,000 ml @ 200 mls/hr Q5H PRN IV 09/26/17 14:46 Sodium Chloride 1,000 ml @ 0 mls/hr Q0M PRN OTHER 09/26/17 14:46 (Mannitol Inj) 12.5 gm UNSCH PRN IV 09/26/17 15:00 Albumin Human 100 ml @ 60 mls/hr UNSCH PRN IV 09/26/17 15:00 (NS Flush) 5 ml UNSCH PRN IV FLUSH 09/26/17 15:00 (Heparin Inj) UNSCH PRN .XX 09/26/17 15:00 (Gentamicin Inj) 20 mg UNSCH PRN OTHER 09/26/17 15:00 (Zofran Inj) 4 mg UNSCH PRN IV PUSH 09/26/17 15:00 (Tylenol) 650 mg UNSCH PRN PO 09/26/17 15:00 (Benadryl) 25 mg UNSCH PRN PO 09/26/17 15:00 (Nitrostat Sl) 0.4 mg UNSCH PRN SL 09/26/17 15:00 (Catapres) 0.1 mg UNSCH PRN PO 09/26/17 15:00 (Epogen Inj) 10,000 units UNSCH PRN IV PUSH 09/26/17 15:00 (Gelfoam 12 Mm/7 Mm Top) 1 foam UNSCH PRN TOP 09/26/17 15:00 Vital Signs / I&O Vital Signs Date Time Temp Pulse Resp B/P (MAP) Pulse Ox O2 Delivery O2 Flow Rate FiO2 09/26/17 12:00 97.7 58 16 116/67 (83) 98 09/26/17 07:30 97.8 62 18 119/76 (90) 97 09/26/17 07:30 62 09/26/17 03:04 58 16 108/58 (75) 98 09/26/17 03:00 57 09/26/17 02:00 56 09/26/17 01:00 60 09/26/17 00:00 58 09/25/17 23:20 58 16 109/67 (81) 97 09/25/17 23:00 59 09/25/17 22:00 60 09/25/17 21:00 62 09/25/17 20:26 98.4 64 16 115/69 (84) 99 09/25/17 20:00 64 09/25/17 19:00 61 I/O 09/25/17 09/25/17 09/25/17 09/26/17 09/26/17 09/26/17 07:00 15:00 23:00 07:00 15:00 23:00 Intake Total 720 ml 240 ml Output Total 250 ml 100 ml Balance 470 ml 140 ml Intake Oral 720 ml 240 ml Output Urine Total 250 ml 100 ml # Bowel Movements 1 0 Physical Exam GENERAL: NAD, AAOx3 SKIN: Warm and dry. HEAD: Atraumatic. Normocephalic. EYES: Pupils equal and round. No scleral icterus. No injection or drainage. ENT: No nasal bleeding or discharge. Mucous membranes pink and moist. NECK: Trachea midline. No JVD. CARDIOVASCULAR: Regular rate and rhythm. RESPIRATORY: No accessory muscle use. Clear to auscultation. Breath sounds equal bilaterally. GASTROINTESTINAL: Abdomen soft, non-tender, nondistended. Hepatic and splenic margins not palpable. MUSCULOSKELETAL: Extremities without clubbing, cyanosis, or edema. No obvious deformities. NEUROLOGICAL: Awake and alert. No obvious cranial nerve deficits. Motor grossly within normal limits. Five out of 5 muscle strength in the arms and legs. Normal speech. PSYCHIATRIC: Appropriate mood and affect; insight and judgment normal. Laboratory Laboratory Tests Test 09/26/17 06:00 White Blood Count 7.0 TH/MM3 Red Blood Count 3.11 MIL/MM3 Hemoglobin 10.1 GM/DL Hematocrit 30.3 % Mean Corpuscular Volume 97.5 FL Mean Corpuscular Hemoglobin 32.4 PG Mean Corpuscular Hemoglobin Concent 33.3 % Red Cell Distribution Width 17.8 % Platelet Count 138 TH/MM3 Mean Platelet Volume 9.7 FL Blood Urea Nitrogen 90 MG/DL Creatinine 9.94 MG/DL Random Glucose 190 MG/DL Calcium Level 9.2 MG/DL Sodium Level 136 MEQ/L Potassium Level 5.1 MEQ/L Chloride Level 101 MEQ/L Carbon Dioxide Level 20.8 MEQ/L Anion Gap 14 MEQ/L Estimat Glomerular Filtration Rate 5 ML/MIN Assessment and Plan Problem List: (1) Multi-vessel coronary artery stenosis ICD Codes: I25.10 - Atherosclerotic heart disease of [place] coronary artery without angina pectoris (2) NSTEMI (non-ST elevation myocardial infarction) ICD Codes: I21.4 - Non-ST elevation (NSTEMI) myocardial infarction Status: Acute (3) Ischemic cardiomyopathy ICD Codes: I25.5 - Ischemic cardiomyopathy Status: Chronic (4) ESRD (end stage renal disease) ICD Codes: N18.6 - End stage renal disease Status: Acute (5) DM (diabetes mellitus) ICD Codes: E11.9 - Type 2 diabetes mellitus without complications (6) Hyperlipidemia ICD Codes: E78.5 - Hyperlipidemia, unspecified Status: Chronic (7) HTN (hypertension) ICD Codes: I10 - Essential (primary) hypertension Status: Chronic (8) ESRD on hemodialysis ICD Codes: N18.6 - End stage renal disease; Z99.2 - Dependence on renal dialysis Assessment and Plan 1) Elevated troponin, although decreasing Concern with symptoms as SOB was his presenting symptom last time Plan for repeat cardiac catheterization either tomorrow or Wed depending on INR level If left main restenosis, may need CT surgery evaluation for bypass Otherwise may be due to chronically occluded RCA 2) ESRD on HD José Antonio May DO Sep 26, 2017 18:39
[2017-09-26] MEDS: ACETAMINOPHEN/HYDROcodone 325 MG/5 MG TAB PO PRN (21:23)
[2017-09-27] VITALS (31 sets, daily range): BP systolic 101–132; BP diastolic 58–74; PULSE 53–71; RESP 18–20; TEMP 97.6–98.1; O2SAT 97–99
[2017-09-27] MEDS: INSULIN ASPART SUPPLEMENTAL SCALE SQ SCH ×6 (08:00→20:30)
[2017-09-27] MEDS: GABAPENTIN 100 MG CAP PO SCH ×3 (09:00→18:36)
[2017-09-27] MEDS: CALCIUM ACETATE 667 MG CAP PO SCH ×3 (09:00→18:37)
[2017-09-27] MEDS: EPOETIN ALFA 10,000 UNITS/ML VIAL IV PUSH PRN (09:34)
[2017-09-27] MEDS: GELATIN 12 MM/7 MM FOAM TOP PRN (09:35)
[2017-09-27 09:52] LABS: AUTOMATED NEUTROPHIL # 4.6 TH/MM3 (1.8-7.7); BASOPHIL # 0.1 TH/MM3 (0-0.2); BASOPHIL % 1.2 % (0.0-2.0); EOSINOPHIL # 0.1 TH/MM3 (0-0.4); HEMATOCRIT 29.3 % (39.0-51.0); HEMOGLOBIN 9.8 GM/DL (13.0-17.0); LYMPH % 14.6 % (9.0-44.0); LYMPHOCYTE # 0.9 TH/MM3 (1.0-4.8); MEAN CELL VOLUME 97.1 FL (80.0-100.0); MEAN CORPUSCULAR HEMOGLOBIN 32.4 PG (27.0-34.0); MEAN CORPUSCULAR HGB CONC 33.4 % (32.0-36.0); MEAN PLATELET VOLUME 9.6 FL (7.0-11.0); MONO % 6.9 % (0.0-8.0); MONOCYTE # 0.4 TH/MM3 (0-0.9); NEUT % 75.3 % (16.0-70.0); PLATELET COUNT 144 TH/MM3 (150-450); RED BLOOD COUNT 3.02 MIL/MM3 (4.50-5.90); RED CELL DISTRIBUTION WIDTH 17.6 % (11.6-17.2); WHITE BLOOD COUNT 6.1 TH/MM3 (4.0-11.0)
[2017-09-27 10:00] LABS: INTERNATIONAL NORMALIZED RATIO 3.4 RATIO; PROTHROMBIN TIME - PATIENT 34.3 SEC (9.8-11.6)
[2017-09-27 10:18] LABS: BICARBONATE 20.1 MEQ/L (21.0-32.0)
[2017-09-27 10:32] LABS: CREATININE 10.97 MG/DL (0.60-1.30)
--- NOTE | 2017-09-27 12:02 | PD.CARD.PN ---
Subjective Subjective Remarks No events overnight No chest pain, mild SOB when up and moving Objective Medications Current Medications Medications (Trade) Dose Ordered Sig/Taj Route Start Time Stop Time Status Last Admin (Nitroglycerin 2% Oint) 0.5 inch Q6HR PRN TOPICAL 09/24/17 22:15 (D50w (Vial) Inj) 50 ml UNSCH PRN IV PUSH 09/24/17 22:15 (Glucagon Inj) 1 mg UNSCH PRN OTHER 09/24/17 22:15 (NovoLOG SUPPLEMENTAL SCALE) 1 ACHS SLIDING SCALE SQ 09/25/17 08:00 09/26/17 21:05 (NS Flush) 2 ml UNSCH PRN IV FLUSH 09/24/17 22:15 (NS Flush) 2 ml BID IV FLUSH 09/25/17 09:00 09/26/17 21:05 (Zofran Inj) 4 mg Q6H PRN IVP 09/24/17 22:15 (Tylenol) 650 mg Q6H PRN PO 09/24/17 22:15 ([place] 5-325 Mg) 1 tab Q4H PRN PO 09/24/17 22:15 09/26/17 21:23 (Morphine Inj) 2 mg Q3H PRN IV PUSH 09/24/17 22:15 (Janett-Colace) 1 tab BID PO 09/25/17 09:00 09/26/17 21:04 (Milk Of Magnesia Liq) 30 ml Q12H PRN PO 09/24/17 22:15 (Senokot) 17.2 mg Q12H PRN PO 09/24/17 22:15 (Dulcolax Supp) 10 mg DAILY PRN RECTAL 09/24/17 22:15 (Lactulose Liq) 30 ml DAILY PRN PO 09/24/17 22:15 (Xanax) 0.25 mg Q8H PRN PO 09/25/17 01:15 (Cordarone) 200 mg BID PO 09/25/17 09:00 Future Hold (Phoslo) 1,334 mg TID PO 09/25/17 09:00 09/26/17 17:53 (Catapres) 0.1 mg BID PO 09/25/17 09:00 Future Hold (Neurontin) 100 mg TID PO 09/25/17 09:00 09/26/17 17:53 (Apresoline) 50 mg TID PO 09/25/17 09:00 Future Hold (Imdur) 60 mg DAILY@07 PO 09/25/17 07:00 Future Hold (Brilinta) 90 mg BID PO 09/25/17 09:00 09/26/17 21:04 (Coreg) 25 mg Q12HR PO 09/25/17 21:00 09/26/17 21:04 (Aspirin Chew) 81 mg DAILY PO 09/25/17 15:30 09/26/17 08:38 Sodium Chloride 1,000 ml @ 0 mls/hr Q0M PRN OTHER 09/26/17 14:46 (Heparin Inj) 8,000 units UNSCH PRN IV FLUSH 09/26/17 15:00 Sodium Chloride 1,000 ml @ 200 mls/hr Q5H PRN IV 09/26/17 14:46 Sodium Chloride 1,000 ml @ 0 mls/hr Q0M PRN OTHER 09/26/17 14:46 (Mannitol Inj) 12.5 gm UNSCH PRN IV 09/26/17 15:00 Albumin Human 100 ml @ 60 mls/hr UNSCH PRN IV 09/26/17 15:00 (NS Flush) 5 ml UNSCH PRN IV FLUSH 09/26/17 15:00 (Heparin Inj) UNSCH PRN .XX 09/26/17 15:00 (Gentamicin Inj) 20 mg UNSCH PRN OTHER 09/26/17 15:00 (Zofran Inj) 4 mg UNSCH PRN IV PUSH 09/26/17 15:00 (Tylenol) 650 mg UNSCH PRN PO 09/26/17 15:00 (Benadryl) 25 mg UNSCH PRN PO 09/26/17 15:00 (Nitrostat Sl) 0.4 mg UNSCH PRN SL 09/26/17 15:00 (Catapres) 0.1 mg UNSCH PRN PO 09/26/17 15:00 (Epogen Inj) 10,000 units UNSCH PRN IV PUSH 09/26/17 15:00 09/27/17 09:34 (Gelfoam 12 Mm/7 Mm Top) 1 foam UNSCH PRN TOP 09/26/17 15:00 09/27/17 09:35 Vital Signs / I&O Vital Signs Date Time Temp Pulse Resp B/P (MAP) Pulse Ox O2 Delivery O2 Flow Rate FiO2 09/27/17 11:00 62 09/27/17 10:00 60 09/27/17 09:05 21 09/27/17 09:00 56 09/27/17 08:00 54 09/27/17 07:45 97.6 56 18 120/74 (89) 98 09/27/17 07:15 54 09/27/17 06:00 58 09/27/17 05:00 53 09/27/17 04:00 54 09/27/17 03:00 98.0 54 18 112/67 (82) 98 09/27/17 03:00 53 09/27/17 02:29 98 21 09/27/17 02:00 55 09/27/17 01:00 64 09/27/17 00:00 97.9 60 18 112/66 (81) 97 09/27/17 00:00 55 09/26/17 23:00 56 09/26/17 22:00 57 09/26/17 21:00 55 09/26/17 20:00 97.8 60 18 109/62 (78) 98 09/26/17 20:00 58 09/26/17 19:00 60 09/26/17 18:00 54 09/26/17 17:00 54 09/26/17 16:00 98.0 52 18 110/66 (81) 97 09/26/17 16:00 54 09/26/17 15:00 54 09/26/17 14:00 56 09/26/17 13:00 54 I/O 09/26/17 09/26/17 09/26/17 09/27/17 09/27/17 09/27/17 07:00 15:00 23:00 07:00 15:00 23:00 Intake Total 240 ml 840 ml 0 ml Output Total 100 ml 900 ml 3000 ml Balance 140 ml -60 ml 0 ml -3000 ml Intake Oral 240 ml 840 ml 0 ml IV Total 0 ml Output Urine Total 100 ml 900 ml Hemodialysis 3000 ml # Voids 4 # Bowel Movements 0 0 0 Physical Exam GENERAL: NAD, AAOx3 SKIN: Warm and dry. HEAD: Atraumatic. Normocephalic. EYES: Pupils equal and round. No scleral icterus. No injection or drainage. ENT: No nasal bleeding or discharge. Mucous membranes pink and moist. NECK: Trachea midline. No JVD. CARDIOVASCULAR: Regular rate and rhythm. RESPIRATORY: No accessory muscle use. Clear to auscultation. Breath sounds equal bilaterally. GASTROINTESTINAL: Abdomen soft, non-tender, nondistended. Hepatic and splenic margins not palpable. MUSCULOSKELETAL: Extremities without clubbing, cyanosis, or edema. No obvious deformities. NEUROLOGICAL: Awake and alert. No obvious cranial nerve deficits. Motor grossly within normal limits. Five out of 5 muscle strength in the arms and legs. Normal speech. PSYCHIATRIC: Appropriate mood and affect; insight and judgment normal. Laboratory Laboratory Tests Test 09/27/17 08:30 White Blood Count 6.1 TH/MM3 Red Blood Count 3.02 MIL/MM3 Hemoglobin 9.8 GM/DL Hematocrit 29.3 % Mean Corpuscular Volume 97.1 FL Mean Corpuscular Hemoglobin 32.4 PG Mean Corpuscular Hemoglobin Concent 33.4 % Red Cell Distribution Width 17.6 % Platelet Count 144 TH/MM3 Mean Platelet Volume 9.6 FL Neutrophils (%) (Auto) 75.3 % Lymphocytes (%) (Auto) 14.6 % Monocytes (%) (Auto) 6.9 % Eosinophils (%) (Auto) 2.0 % Basophils (%) (Auto) 1.2 % Neutrophils # (Auto) 4.6 TH/MM3 Lymphocytes # (Auto) 0.9 TH/MM3 Monocytes # (Auto) 0.4 TH/MM3 Eosinophils # (Auto) 0.1 TH/MM3 Basophils # (Auto) 0.1 TH/MM3 CBC Comment DIFF FINAL Differential Comment Prothrombin Time 34.3 SEC Prothromb Time International Ratio 3.4 RATIO Blood Urea Nitrogen 98 MG/DL Creatinine 10.97 MG/DL Random Glucose 194 MG/DL Calcium Level 9.0 MG/DL Sodium Level 135 MEQ/L Potassium Level 5.0 MEQ/L Chloride Level 99 MEQ/L Carbon Dioxide Level 20.1 MEQ/L Anion Gap 16 MEQ/L Estimat Glomerular Filtration Rate 5 ML/MIN Assessment and Plan Problem List: (1) Multi-vessel coronary artery stenosis ICD Codes: I25.10 - Atherosclerotic heart disease of [place] coronary artery without angina pectoris (2) NSTEMI (non-ST elevation myocardial infarction) ICD Codes: I21.4 - Non-ST elevation (NSTEMI) myocardial infarction Status: Acute (3) Ischemic cardiomyopathy ICD Codes: I25.5 - Ischemic cardiomyopathy Status: Chronic (4) ESRD (end stage renal disease) ICD Codes: N18.6 - End stage renal disease Status: Acute (5) DM (diabetes mellitus) ICD Codes: E11.9 - Type 2 diabetes mellitus without complications (6) Hyperlipidemia ICD Codes: E78.5 - Hyperlipidemia, unspecified Status: Chronic (7) HTN (hypertension) ICD Codes: I10 - Essential (primary) hypertension Status: Chronic (8) ESRD on hemodialysis ICD Codes: N18.6 - End stage renal disease; Z99.2 - Dependence on renal dialysis Assessment and Plan 1) Elevated troponin, although decreasing Concern with symptoms as SOB was his presenting symptom last time when he had LM restenosis Plan for repeat cardiac catheterization possibly tomrrow depending on INR level If left main restenosis, may need CT surgery evaluation for bypass Otherwise may be due to chronically occluded RCA 2) ESRD on HD José Antonio May DO Sep 27, 2017 12:02
[2017-09-27] MEDS: TICAGRELOR 90 MG TAB PO SCH ×2 (12:44→20:30)
[2017-09-27] MEDS: ASPIRIN 81 MG CHEW TAB PO SCH (12:45)
[2017-09-27] MEDS: DOCUSATE SODIUM 50 MG/SENNA 8.6 MG TAB PO SCH ×2 (12:45→20:30)
[2017-09-27] MEDS: CARVEDILOL 12.5 MG TAB PO SCH ×2 (12:45→20:30)
[2017-09-27] MEDS: SODIUM CHLORIDE 0.9% FLUSH 10 ML FLUSH IV FLUSH SCH ×2 (12:46→20:31)
--- NOTE | 2017-09-27 14:53 | HHI.NPPN ---
Subjective General Problems: Anemia, Edema, Heart Disease, Hypertension Renal Failure: End Stage Renal Disease History of Present Illness 57-year-old male with past medical history of ischemic heart disease, hypertension, cardiomyopathy, end-stage renal disease, on hemodialysis 3 times per week, diabetes mellitus, came to the hospital with a complaint of recurrent chest pain. I was called to see the patient because of management of dialysis. The patient has a known history of ischemic heart disease and congestive heart failure. Additional Remarks Patient is sitting on side of bed with family present. Reports occasionally SOB but has improved. Plans for possible heart cath tomorrow. (Racquel Hooks) Review of Systems General Constitutional: Fatigue (Racquel Hooks) Respiratory Lungs: SOB, Cough (Racquel Hooks) Cardiovascular Cardiac: Chest Pain, AUGUSTINE (Racquel Hooks) Objective Data Data 09/27/17 09/28/17 19:00 07:00 Output Total 3000 ml Balance -3000 ml Hemodialysis 3000 ml Vital Signs Date Time Temp Pulse Resp B/P (MAP) Pulse Ox O2 Delivery O2 Flow Rate FiO2 09/27/17 13:14 66 09/27/17 13:06 98.0 61 18 132/70 (90) 97 09/27/17 12:00 68 09/27/17 11:00 62 09/27/17 10:00 60 09/27/17 09:05 21 09/27/17 09:00 56 09/27/17 08:00 54 09/27/17 07:45 97.6 56 18 120/74 (89) 98 09/27/17 07:15 54 09/27/17 06:00 58 09/27/17 05:00 53 09/27/17 04:00 54 09/27/17 03:00 98.0 54 18 112/67 (82) 98 09/27/17 03:00 53 09/27/17 02:29 98 21 09/27/17 02:00 55 09/27/17 01:00 64 09/27/17 00:00 97.9 60 18 112/66 (81) 97 09/27/17 00:00 55 09/26/17 23:00 56 09/26/17 22:00 57 09/26/17 21:00 55 09/26/17 20:00 97.8 60 18 109/62 (78) 98 09/26/17 20:00 58 09/26/17 19:00 60 09/26/17 18:00 54 09/26/17 17:00 54 09/26/17 16:00 98.0 52 18 110/66 (81) 97 09/26/17 16:00 54 09/26/17 15:00 54 (Racquel Hooks) -: 09/27/17 0830 09/27/17 0830 Imaging Last Impressions Chest X-Ray 09/24/172031 Signed Impressions: Service Date/Time: Sunday, September 24, 2017 20:52 - CONCLUSION: No acute disease. Son Siu MD (Racquel Hooks) Physical Exam General Appearance: No Acute Distress, Comfortable (Racquel Hooks) Eyes Eye Exam: Pupils Equal (Racquel Hooks) Throat Throat Exam: Oral Mucosa [place] & Moist (Racquel Hooks) Neck Neck Exam: Neck Supple (Racquel Hooks) Pulmonary Resp Exam: Breath Sounds Equal, Decreased Bases (Racquel Hooks) Cardiology CV Exam: Regular, Normal Sinus Rhythm (Racquel Hooks) Gastrointestinal/Abdomen GI Exam: Soft, Non-Tender, Bowel Sounds Present (Racquel Hooks) Extremeties Extremities Exam: Trace Edema (Racquel Hooks) Neurologic Neuro Exam: Alert, Awake, Oriented (Racquel Hooks) Psychiatric Psych Exam: Appropriate Responses (Racquel Hooks) Assessment/Plan Assessment Summary: Anemia of CKD, CHF, Hypertension, End Stage Renal Disease Problem List: (1) DM (diabetes mellitus) ICD Codes: E11.9 - Type 2 diabetes mellitus without complications (2) Ischemic cardiomyopathy ICD Codes: I25.5 - Ischemic cardiomyopathy Status: Chronic (3) NSTEMI (non-ST elevation myocardial infarction) ICD Codes: I21.4 - Non-ST elevation (NSTEMI) myocardial infarction Status: Acute (4) Hyperlipidemia ICD Codes: E78.5 - Hyperlipidemia, unspecified Status: Chronic (5) Anemia ICD Codes: D64.9 - Anemia, unspecified Status: Chronic (6) HTN (hypertension) ICD Codes: I10 - Essential (primary) hypertension Status: Chronic (7) Multi-vessel coronary artery stenosis ICD Codes: I25.10 - Atherosclerotic heart disease of [place] coronary artery without angina pectoris (8) ESRD on hemodialysis ICD Codes: N18.6 - End stage renal disease; Z99.2 - Dependence on renal dialysis Plan Patient has significant IHD and has low EF. Admitted with chest pain and elevated Troponin possibly NSTEMI. Possible heart cath tomorrow pending INR in AM If heart cath is done tomorrow will keep regularly scheduled dialysis on // Tue unless SOB or hyperkalemic HD this morning 3 liters removed Labs in AM (Racquel Hooks) Plan Patient seen in AM during HD,and examined, agree with above. No chest pain, for cardiac Cath in AM. (Jeana Corona MD) Racquel Hooks Sep 27, 2017 14:53 Jeana Corona MD Sep 27, 2017 18:51
--- NOTE | 2017-09-27 17:11 | HHI.PR ---
Subjective Remarks Patient seen after dialysis. He denies any chest pain. Still reports some mild SOB with activities. Objective Vitals Vital Signs Date Time Temp Pulse Resp B/P (MAP) Pulse Ox O2 Delivery O2 Flow Rate FiO2 09/27/17 16:20 60 09/27/17 15:30 98.0 62 19 122/58 (79) 99 09/27/17 14:00 62 09/27/17 13:14 66 09/27/17 13:06 98.0 61 18 132/70 (90) 97 09/27/17 12:00 68 09/27/17 11:00 62 09/27/17 10:00 60 09/27/17 09:05 21 09/27/17 09:00 56 09/27/17 08:00 54 09/27/17 07:45 97.6 56 18 120/74 (89) 98 09/27/17 07:15 54 09/27/17 06:00 58 09/27/17 05:00 53 09/27/17 04:00 54 09/27/17 03:00 98.0 54 18 112/67 (82) 98 09/27/17 03:00 53 09/27/17 02:29 98 21 09/27/17 02:00 55 09/27/17 01:00 64 09/27/17 00:00 97.9 60 18 112/66 (81) 97 09/27/17 00:00 55 09/26/17 23:00 56 09/26/17 22:00 57 09/26/17 21:00 55 09/26/17 20:00 97.8 60 18 109/62 (78) 98 09/26/17 20:00 58 09/26/17 19:00 60 09/26/17 18:00 54 I/O 09/26/17 09/26/17 09/26/17 09/27/17 09/27/17 09/27/17 07:00 15:00 23:00 07:00 15:00 23:00 Intake Total 240 ml 840 ml 0 ml Output Total 100 ml 900 ml 3000 ml Balance 140 ml -60 ml 0 ml -3000 ml Intake Oral 240 ml 840 ml 0 ml IV Total 0 ml Output Urine Total 100 ml 900 ml Hemodialysis 3000 ml # Voids 4 # Bowel Movements 0 0 0 Result Diagram: 09/27/17 0830 09/27/17 0830 Objective Remarks GENERAL: This is a well-nourished, well-developed patient, in no apparent distress. CARDIOVASCULAR: Normal rate and regular rhythm without murmurs, gallops, or rubs. RESPIRATORY: Good respiratory efforts. Breath sounds equal and clear to auscultation bilaterally. GASTROINTESTINAL: Abdomen soft, non-tender, non-distended. Normal active bowel sounds MUSCULOSKELETAL: Trace bilateral lower extremity edema. NEURO: Alert & Oriented x4 to person, place, time, situation. Moves all ext x4 PSYCH: Appropriate mood and affect. A/P Problem List: (1) NSTEMI (non-ST elevation myocardial infarction) ICD Code: I21.4 - Non-ST elevation (NSTEMI) myocardial infarction Status: Acute (2) Ischemic cardiomyopathy ICD Code: I25.5 - Ischemic cardiomyopathy Status: Chronic (3) ESRD (end stage renal disease) ICD Code: N18.6 - End stage renal disease Status: Acute (4) DM (diabetes mellitus) ICD Code: E11.9 - Type 2 diabetes mellitus without complications Assessment and Plan 57-year-old male with: 1. NSTEMI: c/o chest pain, recent NSTEMI s/p PCI, now w/ Trop 0.74, - Cardiology following. Concerned about restonosis. Cardiology planning for repeat heart cath depending on follow up INR levels. - Continue Aspirin, Brilinta, bb 2. Ischemic Cardiomyopathy: Echo 08/03/17 w/ EF 40-45%, CXR w/ no acute findings. Resume home medications. Monitor I/O. 3. DM: Sliding scale w/ Accu-Cheks. 4. ESRD on HD: T//Tue. Nephrology, Dr. Corona following. 5. DVT Prophylaxis: On Coumadin/Brilinta. Follow INR in am. Denita Rothman MD Sep 27, 2017 17:10
[2017-09-28] VITALS (31 sets, daily range): BP systolic 104–124; BP diastolic 59–74; PULSE 52–75; RESP 18–20; TEMP 97–98.5; O2SAT 96–99
[2017-09-28 06:36] LABS: AUTOMATED NEUTROPHIL # 4.4 TH/MM3 (1.8-7.7); BASOPHIL # 0.1 TH/MM3 (0-0.2); EOSINOPHIL # 0.1 TH/MM3 (0-0.4); EOSINOPHIL % 1.8 % (0.0-4.0); HEMATOCRIT 28.7 % (39.0-51.0); HEMOGLOBIN 9.7 GM/DL (13.0-17.0); LYMPH % 14.9 % (9.0-44.0); LYMPHOCYTE # 0.9 TH/MM3 (1.0-4.8); MEAN CELL VOLUME 95.8 FL (80.0-100.0); MEAN CORPUSCULAR HEMOGLOBIN 32.3 PG (27.0-34.0); MEAN CORPUSCULAR HGB CONC 33.8 % (32.0-36.0); MEAN PLATELET VOLUME 9.3 FL (7.0-11.0); MONO % 8.3 % (0.0-8.0); MONOCYTE # 0.5 TH/MM3 (0-0.9); PLATELET COUNT 138 TH/MM3 (150-450); RED CELL DISTRIBUTION WIDTH 17.5 % (11.6-17.2); WHITE BLOOD COUNT 5.9 TH/MM3 (4.0-11.0)
[2017-09-28 06:59] LABS: INTERNATIONAL NORMALIZED RATIO 2.5 RATIO; PROTHROMBIN TIME - PATIENT 25.2 SEC (9.8-11.6)
[2017-09-28 07:09] LABS: BICARBONATE 26.5 MEQ/L (21.0-32.0); CALCIUM 8.7 MG/DL (8.5-10.1); CREATININE 9.8 MG/DL (0.60-1.30)
[2017-09-28] MEDS: INSULIN ASPART SUPPLEMENTAL SCALE SQ SCH ×4 (08:00→20:38)
[2017-09-28] MEDS: CALCIUM ACETATE 667 MG CAP PO SCH ×4 (09:00→18:47)
[2017-09-28] MEDS: DOCUSATE SODIUM 50 MG/SENNA 8.6 MG TAB PO SCH ×3 (09:00→20:38)
[2017-09-28] MEDS: ASPIRIN 81 MG CHEW TAB PO SCH (09:02)
[2017-09-28] MEDS: CARVEDILOL 12.5 MG TAB PO SCH ×2 (09:02→20:38)
[2017-09-28] MEDS: GABAPENTIN 100 MG CAP PO SCH ×3 (09:02→18:46)
[2017-09-28] MEDS: TICAGRELOR 90 MG TAB PO SCH ×2 (09:02→20:38)
[2017-09-28] MEDS: SODIUM CHLORIDE 0.9% FLUSH 10 ML FLUSH IV FLUSH SCH ×2 (09:19→20:38)
[2017-09-28] MEDS: ACETAMINOPHEN/HYDROcodone 325 MG/5 MG TAB PO PRN ×2 (11:03→18:47)
--- NOTE | 2017-09-28 14:26 | HHI.PR ---
Subjective Remarks This is a 57-year-old male with a PMH of HTN, CAD, Ischemic Cardiomyopathy ( Echo 08/03/2017 w/ EF 40-45%), DM and ESRD on HD T//Tue who presented to the ER w/ complaints of chest pain and SOB. Recent admit for similar complaints 08/01- found to have NSTEMI, s/p Cath w/ PCI of LM/LAD/LCx, reports on Brilinta and Coumadin, compliant w/ meds. States doing well after discharge, but had PFTs done 09/16/17 and developed severe chest pain few days after. Pain is substernal, 02/03, non-radiating, associated w/ SOB. On arrival, BP 106/66, HR 62, O2 sat 98% RA, Afebrile. CBC at baseline. Chemistry essentially at baseline. Troponin 0.74. INR 2.7. CXR with no acute findings. Currently chest pain free. Follows w/ Dr. May w/ Cardiology and Dr. Corona w/ Nephro 4-2 Denies chest pain this morning. Mild dyspnea. 4-3 Patient seen after dialysis. He denies any chest pain. Still reports some mild SOB with activities. 4-4 patient is now scheduled to undergo cardiac catheterization hopefully tomorrow September 29 due to his coagulopathy. Patient will obviously need to have hemodialysis after his cardiac catheterization Have discussed with patient and RN and case management and family Await his INR to come down lower than 2.0 Objective Vitals Vital Signs Date Time Temp Pulse Resp B/P (MAP) Pulse Ox O2 Delivery O2 Flow Rate FiO2 09/28/17 12:30 18 09/28/17 11:15 97.0 53 18 118/72 (87) 98 09/28/17 11:00 54 09/28/17 10:00 56 09/28/17 09:00 56 09/28/17 08:00 54 09/28/17 07:33 97.7 57 19 119/69 (86) 96 09/28/17 07:00 56 09/28/17 06:31 57 09/28/17 05:10 54 09/28/17 04:10 55 09/28/17 03:22 97.8 75 20 104/59 (74) 97 09/28/17 03:00 59 09/28/17 02:20 56 09/28/17 01:02 56 09/28/17 00:00 58 09/27/17 23:05 98.1 60 18 101/64 (76) 97 09/27/17 23:00 59 09/27/17 22:00 60 09/27/17 21:34 98 09/27/17 21:00 62 09/27/17 20:06 98.1 71 20 119/65 (83) 97 09/27/17 20:00 64 09/27/17 19:00 61 09/27/17 18:50 62 09/27/17 17:18 60 09/27/17 16:20 60 09/27/17 15:30 98.0 62 19 122/58 (79) 99 09/27/17 15:00 62 I/O 09/27/17 09/27/17 09/27/17 09/28/17 09/28/17 09/28/17 06:59 14:59 22:59 06:59 14:59 22:59 Intake Total 0 ml 355 ml 360 ml Output Total 3000 ml 350 ml 300 ml Balance 0 ml -3000 ml 5 ml 60 ml Intake Oral 0 ml 355 ml 360 ml Output Urine Total 350 ml 300 ml Hemodialysis 3000 ml # Voids 4 # Bowel Movements 0 1 Result Diagram: 09/28/1724 09/28/17 05 Other Results Laboratory Tests Test 09/25/17 17:00 09/26/17 06:00 09/27/17 08:30 09/28/17 05:24 Potassium Level 5.0 MEQ/L 5.1 MEQ/L 5.0 MEQ/L 4.8 MEQ/L White Blood Count 7.0 TH/MM3 6.1 TH/MM3 5.9 TH/MM3 Red Blood Count 3.11 MIL/MM3 3.02 MIL/MM3 3.00 MIL/MM3 Hemoglobin 10.1 GM/DL 9.8 GM/DL 9.7 GM/DL Hematocrit 30.3 % 29.3 % 28.7 % Mean Corpuscular Volume 97.5 FL 97.1 FL 95.8 FL Mean Corpuscular Hemoglobin 32.4 PG 32.4 PG 32.3 PG Mean Corpuscular Hemoglobin Concent 33.3 % 33.4 % 33.8 % Red Cell Distribution Width 17.8 % 17.6 % 17.5 % Platelet Count 138 TH/MM3 144 TH/MM3 138 TH/MM3 Mean Platelet Volume 9.7 FL 9.6 FL 9.3 FL Blood Urea Nitrogen 90 MG/DL 98 MG/DL 78 MG/DL Creatinine 9.94 MG/DL 10.97 MG/DL 9.80 MG/DL Random Glucose 190 MG/DL 194 MG/DL 150 MG/DL Calcium Level 9.2 MG/DL 9.0 MG/DL 8.7 MG/DL Sodium Level 136 MEQ/L 135 MEQ/L 139 MEQ/L Chloride Level 101 MEQ/L 99 MEQ/L 100 MEQ/L Carbon Dioxide Level 20.8 MEQ/L 20.1 MEQ/L 26.5 MEQ/L Anion Gap 14 MEQ/L 16 MEQ/L 13 MEQ/L Estimat Glomerular Filtration Rate 5 ML/MIN 5 ML/MIN 6 ML/MIN Neutrophils (%) (Auto) 75.3 % 74.0 % Lymphocytes (%) (Auto) 14.6 % 14.9 % Monocytes (%) (Auto) 6.9 % 8.3 % Eosinophils (%) (Auto) 2.0 % 1.8 % Basophils (%) (Auto) 1.2 % 1.0 % Neutrophils # (Auto) 4.6 TH/MM3 4.4 TH/MM3 Lymphocytes # (Auto) 0.9 TH/MM3 0.9 TH/MM3 Monocytes # (Auto) 0.4 TH/MM3 0.5 TH/MM3 Eosinophils # (Auto) 0.1 TH/MM3 0.1 TH/MM3 Basophils # (Auto) 0.1 TH/MM3 0.1 TH/MM3 CBC Comment DIFF FINAL DIFF FINAL Differential Comment Prothrombin Time 34.3 SEC 25.2 SEC Prothromb Time International Ratio 3.4 RATIO 2.5 RATIO Imaging Last Impressions Chest X-Ray 09/24/172031 Signed Impressions: Service Date/Time: Sunday, September 24, 2017 20:52 - CONCLUSION: No acute disease. Son Siu MD Objective Remarks GENERAL: Awake alert and oriented 3 talkative and cooperative --does not appear to be in any major distress SKIN: Warm and dry. HEAD: Atraumatic. Normocephalic. EYES: Pupils equal and round. No scleral icterus. No injection or drainage. Extraocular muscles intact ENT: No nasal bleeding or discharge. Mucous membranes pink and moist. Tongue is midline NECK: Trachea midline. No JVD. Supple CARDIOVASCULAR: Regular rate and rhythm. S1-S2 no S3 or S4 RESPIRATORY: No accessory muscle use. Clear to auscultation. Breath sounds equal bilaterally. GASTROINTESTINAL: Abdomen soft, non-tender, nondistended. Hepatic and splenic margins not palpable. Obese MUSCULOSKELETAL: Extremities without clubbing, cyanosis, or edema. No obvious deformities. Right upper extremity AV fistula with good thrill and bruit in the forearm NEUROLOGICAL: Awake and alert. No obvious cranial nerve deficits. Motor grossly within normal limits. Five out of 5 muscle strength in the arms and legs. Normal speech. PSYCHIATRIC: Appropriate mood and affect; insight and judgment normal. Procedures Hemodialysis Medications and IVs Current Medications Sodium Chloride (NS Flush) 2 ml UNSCH PRN IVF FLUSH AFTER USING IV ACCESS; Start 09/24/17 at 20:45; Stop 09/24/17 at 22:18; Status DC Nitroglycerin (Nitroglycerin 2% Oint) 0.5 inch Q6HR PRN TOPICAL CHEST PAIN; Start 09/24/17 at 22:15 Dextrose (D50w (Vial) Inj) 50 ml UNSCH PRN IV PUSH HYPOGLYCEMIA-SEE COMMENTS; Start 09/24/17 at 22:15 Glucagon (Glucagon Inj) 1 mg UNSCH PRN OTHER HYPOGLYCEMIA-SEE COMMENTS; Start 09/24/17 at 22:15 Insulin Aspart (NovoLOG SUPPLEMENTAL SCALE) 1 ACHS SLIDING SCALE SQ Last administered on 09/28/17at 13:11; Start 09/25/17 at 08:00 Sodium Chloride (NS Flush) 2 ml UNSCH PRN IV FLUSH FLUSH AFTER USING IV ACCESS ; Start 09/24/17 at 22:15 Sodium Chloride (NS Flush) 2 ml BID IV FLUSH Last administered on 09/28/17at 09: 19; Start 09/25/17 at 09:00 Ondansetron HCl (Zofran Inj) 4 mg Q6H PRN IVP NAUSEA OR VOMITING; Start at 22:15 Acetaminophen (Tylenol) 650 mg Q6H PRN PO FEVER/PAIN SCALE 1 TO 2; Start at 22:15 Acetaminophen/ Hydrocodone Bitart ([place] 5-325 Mg) 1 tab Q4H PRN PO PAIN SCALE 3 TO 5 Last administered on 09/28/17at 11:03; Start 09/24/17 at 22:15 Morphine Sulfate (Morphine Inj) 2 mg Q3H PRN IV PUSH Pain 6-10; Start 09/24/17 at 22:15 Senna/Docusate Sodium (Janett-Colace) 1 tab BID PO Last administered on 09/28/17at 11:03; Start 09/25/17 at 09:00 Magnesium Hydroxide (Milk Of Magnesia Liq) 30 ml Q12H PRN PO Mild constipation ; Start 09/24/17 at 22:15 Sennosides (Senokot) 17.2 mg Q12H PRN PO Moderate constipation; Start 09/24/17 at 22:15 Bisacodyl (Dulcolax Supp) 10 mg DAILY PRN RECTAL SEVERE CONSITIPATION/ IF NPO ; Start 09/24/17 at 22:15 Lactulose (Lactulose Liq) 30 ml DAILY PRN PO SEVERE CONSITIPATION/ IF PO; Start 09/24/17 at 22:15 Alprazolam (Xanax) 0.25 mg Q8H PRN PO ANXIETY; Start 09/25/17 at 01:15 Amiodarone HCl (Cordarone) 200 mg BID PO ; Start 09/25/17 at 09:00; Status Future Hold Calcium Acetate (Phoslo) 1,334 mg TID PO Last administered on 09/28/17at 13:11; Start 09/25/17 at 09:00 Carvedilol (Coreg) 25 mg BID PO ; Start 09/25/17 at 09:00; Stop 09/25/17 at 15:45 ; Status DC Clonidine (Catapres) 0.1 mg BID PO ; Start 09/25/17 at 09:00; Status Future Hold Gabapentin (Neurontin) 100 mg TID PO Last administered on 09/28/17at 13:10; Start 09/25/17 at 09:00 Hydralazine HCl (Apresoline) 50 mg TID PO ; Start 09/25/17 at 09:00; Status Future Hold Isosorbide Mononitrate (Imdur) 60 mg DAILY@07 PO ; Start 09/25/17 at 07:00; Status Future Hold Ticagrelor (Brilinta) 90 mg BID PO Last administered on 09/28/17at 09:02; Start 09/25/17 at 09:00 Sodium Chloride 500 ml @ 500 mls/hr BOLUS ONCE IV Last administered on at 02:48; Start 09/25/17 at 02:45; Stop 09/25/17 at 03:44; Status DC Dextrose/Sodium Chloride 500 ml @ 500 mls/hr BOLUS ONCE IV Last administered on 09/25/17at 04:14; Start 09/25/17 at 04:00; Stop 09/25/17 at 04:59; Status DC Nitroglycerin (Nitroglycerin 2% Oint) 1 inch Q6HR TOPICAL Last administered on 09/26/17at 17:53; Start 09/25/17 at 18:00; Stop 09/26/17 at 18:42; Status DC Carvedilol (Coreg) 25 mg Q12HR PO Last administered on 09/28/17at 09:02; Start at 21:00 Aspirin (Aspirin Chew) 81 mg DAILY PO Last administered on 09/28/17at 09:02; Start 09/25/17 at 15:30 Sodium Chloride 1,000 ml @ 0 mls/hr Q0M PRN OTHER For Prime & Rinse Back; Start 09/26/17 at 14:46 Heparin Sodium (Porcine) (Heparin Inj) 8,000 units UNSCH PRN IV FLUSH WITH DIALYSIS; Start 09/26/17 at 15:00 Sodium Chloride 1,000 ml @ 200 mls/hr Q5H PRN IV WITH DIALYSIS; Start 09/26/17 at 14:46 Sodium Chloride 1,000 ml @ 0 mls/hr Q0M PRN OTHER WITH DIALYSIS; Start 09/26/17 at 14:46 Mannitol (Mannitol Inj) 12.5 gm UNSCH PRN IV WITH DIALYSIS; Start 09/26/17 at 15 :00 Albumin Human 100 ml @ 60 mls/hr UNSCH PRN IV WITH DIALYSIS; Start 09/26/17 at 15:00 Sodium Chloride (NS Flush) 5 ml UNSCH PRN IV FLUSH WITH DIALYSIS; Start at 15:00 Heparin Sodium (Porcine) (Heparin Inj) UNSCH PRN .XX WITH DIALYSIS; Start 09/26 at 15:00 Gentamicin Sulfate (Gentamicin Inj) 20 mg UNSCH PRN OTHER WITH DIALYSIS; Start 09/26/17 at 15:00 Ondansetron HCl (Zofran Inj) 4 mg UNSCH PRN IV PUSH WITH DIALYSIS; Start at 15:00 Acetaminophen (Tylenol) 650 mg UNSCH PRN PO for headach, pain, temp > 101F; Start 09/26/17 at 15:00 Diphenhydramine HCl (Benadryl) 25 mg UNSCH PRN PO for hives/itching/anaphylaxis ; Start 09/26/17 at 15:00 Nitroglycerin (Nitrostat Sl) 0.4 mg UNSCH PRN SL CHEST PAIN; Start 09/26/17 at 15:00 Clonidine (Catapres) 0.1 mg UNSCH PRN PO for BP > 180/100 X 2 readings; Start 09/26/17 at 15:00 Epoetin Abraham (Epogen Inj) 10,000 units UNSCH PRN IV PUSH WITH DIALYSIS Last administered on 09/27/17at 09:34; Start 09/26/17 at 15:00 Gelatin (Gelfoam 12 Mm/7 Mm Top) 1 foam UNSCH PRN TOP SEE LABEL COMMENTS Last administered on 09/27/17at 09:35; Start 09/26/17 at 15:00 A/P Problem List: (1) NSTEMI (non-ST elevation myocardial infarction) ICD Code: I21.4 - Non-ST elevation (NSTEMI) myocardial infarction Status: Acute (2) Ischemic cardiomyopathy ICD Code: I25.5 - Ischemic cardiomyopathy Status: Chronic (3) ESRD (end stage renal disease) ICD Code: N18.6 - End stage renal disease Status: Acute (4) DM (diabetes mellitus) ICD Code: E11.9 - Type 2 diabetes mellitus without complications Assessment and Plan 57-year-old male with: 1. NSTEMI: c/o chest pain, recent NSTEMI s/p PCI, now w/ Trop 0.74, - Cardiology following. Concerned about restonosis. Cardiology planning for repeat heart cath depending on follow up INR levels. - Continue Aspirin, Brilinta, bb Hopefully to have cardiac catheterization if INR is less than two-point tomorrow 2. Ischemic Cardiomyopathy: Echo 08/03/17 w/ EF 40-45%, CXR w/ no acute findings. Resume home medications. Monitor I/O. 3. DM: Sliding scale w/ Accu-Cheks. 4. ESRD on HD: T//Tue. Nephrology, Dr. Corona following. Obesity weight loss recommended 5. DVT Prophylaxis: On Coumadin/Brilinta. Follow INR in am. Coumadin is on hold at this time Discharge Planning Pending cardiac and renal clearance Jason Craig DO Sep 28, 2017 14:26
--- NOTE | 2017-09-28 15:04 | PD.CARD.PN ---
Subjective Subjective Remarks No events overnight No chest pain, mild SOB when up and moving Objective Medications Current Medications Medications (Trade) Dose Ordered Sig/Taj Route Start Time Stop Time Status Last Admin (Nitroglycerin 2% Oint) 0.5 inch Q6HR PRN TOPICAL 09/24/17 22:15 (D50w (Vial) Inj) 50 ml UNSCH PRN IV PUSH 09/24/17 22:15 (Glucagon Inj) 1 mg UNSCH PRN OTHER 09/24/17 22:15 (NovoLOG SUPPLEMENTAL SCALE) 1 ACHS SLIDING SCALE SQ 09/25/17 08:00 09/28/17 13:11 (NS Flush) 2 ml UNSCH PRN IV FLUSH 09/24/17 22:15 (NS Flush) 2 ml BID IV FLUSH 09/25/17 09:00 09/28/17 09:19 (Zofran Inj) 4 mg Q6H PRN IVP 09/24/17 22:15 (Tylenol) 650 mg Q6H PRN PO 09/24/17 22:15 ([place] 5-325 Mg) 1 tab Q4H PRN PO 09/24/17 22:15 09/28/17 11:03 (Morphine Inj) 2 mg Q3H PRN IV PUSH 09/24/17 22:15 (Janett-Colace) 1 tab BID PO 09/25/17 09:00 09/28/17 11:03 (Milk Of Magnesia Liq) 30 ml Q12H PRN PO 09/24/17 22:15 (Senokot) 17.2 mg Q12H PRN PO 09/24/17 22:15 (Dulcolax Supp) 10 mg DAILY PRN RECTAL 09/24/17 22:15 (Lactulose Liq) 30 ml DAILY PRN PO 09/24/17 22:15 (Xanax) 0.25 mg Q8H PRN PO 09/25/17 01:15 (Cordarone) 200 mg BID PO 09/25/17 09:00 Future Hold (Phoslo) 1,334 mg TID PO 09/25/17 09:00 09/28/17 13:11 (Catapres) 0.1 mg BID PO 09/25/17 09:00 Future Hold (Neurontin) 100 mg TID PO 09/25/17 09:00 09/28/17 13:10 (Apresoline) 50 mg TID PO 09/25/17 09:00 Future Hold (Imdur) 60 mg DAILY@07 PO 09/25/17 07:00 Future Hold (Brilinta) 90 mg BID PO 09/25/17 09:00 09/28/17 09:02 (Coreg) 25 mg Q12HR PO 09/25/17 21:00 09/28/17 09:02 (Aspirin Chew) 81 mg DAILY PO 09/25/17 15:30 09/28/17 09:02 Sodium Chloride 1,000 ml @ 0 mls/hr Q0M PRN OTHER 09/26/17 14:46 (Heparin Inj) 8,000 units UNSCH PRN IV FLUSH 09/26/17 15:00 Sodium Chloride 1,000 ml @ 200 mls/hr Q5H PRN IV 09/26/17 14:46 Sodium Chloride 1,000 ml @ 0 mls/hr Q0M PRN OTHER 09/26/17 14:46 (Mannitol Inj) 12.5 gm UNSCH PRN IV 09/26/17 15:00 Albumin Human 100 ml @ 60 mls/hr UNSCH PRN IV 09/26/17 15:00 (NS Flush) 5 ml UNSCH PRN IV FLUSH 09/26/17 15:00 (Heparin Inj) UNSCH PRN .XX 09/26/17 15:00 (Gentamicin Inj) 20 mg UNSCH PRN OTHER 09/26/17 15:00 (Zofran Inj) 4 mg UNSCH PRN IV PUSH 09/26/17 15:00 (Tylenol) 650 mg UNSCH PRN PO 09/26/17 15:00 (Benadryl) 25 mg UNSCH PRN PO 09/26/17 15:00 (Nitrostat Sl) 0.4 mg UNSCH PRN SL 09/26/17 15:00 (Catapres) 0.1 mg UNSCH PRN PO 09/26/17 15:00 (Epogen Inj) 10,000 units UNSCH PRN IV PUSH 09/26/17 15:00 09/27/17 09:34 (Gelfoam 12 Mm/7 Mm Top) 1 foam UNSCH PRN TOP 09/26/17 15:00 09/27/17 09:35 Vital Signs / I&O Vital Signs Date Time Temp Pulse Resp B/P (MAP) Pulse Ox O2 Delivery O2 Flow Rate FiO2 09/28/17 12:30 18 09/28/17 11:15 97.0 53 18 118/72 (87) 98 09/28/17 11:00 54 09/28/17 10:00 56 09/28/17 09:00 56 09/28/17 08:00 54 09/28/17 07:33 97.7 57 19 119/69 (86) 96 09/28/17 07:00 56 09/28/17 06:31 57 09/28/17 05:10 54 09/28/17 04:10 55 09/28/17 03:22 97.8 75 20 104/59 (74) 97 09/28/17 03:00 59 09/28/17 02:20 56 09/28/17 01:02 56 09/28/17 00:00 58 09/27/17 23:05 98.1 60 18 101/64 (76) 97 09/27/17 23:00 59 09/27/17 22:00 60 09/27/17 21:34 98 09/27/17 21:00 62 09/27/17 20:06 98.1 71 20 119/65 (83) 97 09/27/17 20:00 64 09/27/17 19:00 61 09/27/17 18:50 62 09/27/17 17:18 60 09/27/17 16:20 60 09/27/17 15:30 98.0 62 19 122/58 (79) 99 I/O 09/27/17 09/27/17 09/27/17 09/28/17 09/28/17 09/28/17 07:00 15:00 23:00 07:00 15:00 23:00 Intake Total 0 ml 355 ml 360 ml Output Total 3000 ml 350 ml 300 ml Balance 0 ml -3000 ml 5 ml 60 ml Intake Oral 0 ml 355 ml 360 ml Output Urine Total 350 ml 300 ml Hemodialysis 3000 ml # Voids 4 # Bowel Movements 0 1 Physical Exam GENERAL: NAD, AAOx3 SKIN: Warm and dry. HEAD: Atraumatic. Normocephalic. EYES: Pupils equal and round. No scleral icterus. No injection or drainage. ENT: No nasal bleeding or discharge. Mucous membranes pink and moist. NECK: Trachea midline. No JVD. CARDIOVASCULAR: Regular rate and rhythm. RESPIRATORY: No accessory muscle use. Clear to auscultation. Breath sounds equal bilaterally. GASTROINTESTINAL: Abdomen soft, non-tender, nondistended. Hepatic and splenic margins not palpable. MUSCULOSKELETAL: Extremities without clubbing, cyanosis, or edema. No obvious deformities. NEUROLOGICAL: Awake and alert. No obvious cranial nerve deficits. Motor grossly within normal limits. Five out of 5 muscle strength in the arms and legs. Normal speech. PSYCHIATRIC: Appropriate mood and affect; insight and judgment normal. Laboratory Laboratory Tests Test 09/28/17 05:24 White Blood Count 5.9 TH/MM3 Red Blood Count 3.00 MIL/MM3 Hemoglobin 9.7 GM/DL Hematocrit 28.7 % Mean Corpuscular Volume 95.8 FL Mean Corpuscular Hemoglobin 32.3 PG Mean Corpuscular Hemoglobin Concent 33.8 % Red Cell Distribution Width 17.5 % Platelet Count 138 TH/MM3 Mean Platelet Volume 9.3 FL Neutrophils (%) (Auto) 74.0 % Lymphocytes (%) (Auto) 14.9 % Monocytes (%) (Auto) 8.3 % Eosinophils (%) (Auto) 1.8 % Basophils (%) (Auto) 1.0 % Neutrophils # (Auto) 4.4 TH/MM3 Lymphocytes # (Auto) 0.9 TH/MM3 Monocytes # (Auto) 0.5 TH/MM3 Eosinophils # (Auto) 0.1 TH/MM3 Basophils # (Auto) 0.1 TH/MM3 CBC Comment DIFF FINAL Differential Comment Prothrombin Time 25.2 SEC Prothromb Time International Ratio 2.5 RATIO Blood Urea Nitrogen 78 MG/DL Creatinine 9.80 MG/DL Random Glucose 150 MG/DL Calcium Level 8.7 MG/DL Sodium Level 139 MEQ/L Potassium Level 4.8 MEQ/L Chloride Level 100 MEQ/L Carbon Dioxide Level 26.5 MEQ/L Anion Gap 13 MEQ/L Estimat Glomerular Filtration Rate 6 ML/MIN Assessment and Plan Problem List: (1) Multi-vessel coronary artery stenosis ICD Codes: I25.10 - Atherosclerotic heart disease of [place] coronary artery without angina pectoris (2) NSTEMI (non-ST elevation myocardial infarction) ICD Codes: I21.4 - Non-ST elevation (NSTEMI) myocardial infarction Status: Acute (3) Ischemic cardiomyopathy ICD Codes: I25.5 - Ischemic cardiomyopathy Status: Chronic (4) ESRD (end stage renal disease) ICD Codes: N18.6 - End stage renal disease Status: Acute (5) DM (diabetes mellitus) ICD Codes: E11.9 - Type 2 diabetes mellitus without complications (6) Hyperlipidemia ICD Codes: E78.5 - Hyperlipidemia, unspecified Status: Chronic (7) HTN (hypertension) ICD Codes: I10 - Essential (primary) hypertension Status: Chronic (8) ESRD on hemodialysis ICD Codes: N18.6 - End stage renal disease; Z99.2 - Dependence on renal dialysis Assessment and Plan 1) Elevated troponin, although decreasing Concern with symptoms as SOB was his presenting symptom last time when he had LM restenosis Plan for repeat cardiac catheterization possibly tomorrow depending on INR level If left main restenosis, may need CT surgery evaluation for bypass Otherwise may be due to chronically occluded RCA 2) ESRD on HD Plan for HD after cardiac catheterization tomorrow José Antonio May DO Sep 28, 2017 15:04
--- NOTE | 2017-09-28 15:20 | HHI.NPPN ---
Subjective General Problems: Anemia, Edema, Heart Disease, Hypertension Renal Failure: End Stage Renal Disease History of Present Illness 57-year-old male with past medical history of ischemic heart disease, hypertension, cardiomyopathy, end-stage renal disease, on hemodialysis 3 times per week, diabetes mellitus, came to the hospital with a complaint of recurrent chest pain. I was called to see the patient because of management of dialysis. The patient has a known history of ischemic heart disease and congestive heart failure. Additional Remarks Patient is sitting on side of bed with family present. Heart Cath on hold today for elevated INR possibly tomorrow. (Racquel Hooks) Review of Systems General Constitutional: Fatigue (Racquel Hooks) Respiratory Lungs: SOB, Cough (Racquel Hooks) Cardiovascular Cardiac: Chest Pain, AUGUSTINE (Racquel Hooks) Objective Data Data Vital Signs Date Time Temp Pulse Resp B/P (MAP) Pulse Ox O2 Delivery O2 Flow Rate FiO2 09/28/17 12:30 18 09/28/17 11:15 97.0 53 18 118/72 (87) 98 09/28/17 11:00 54 09/28/17 10:00 56 09/28/17 09:00 56 09/28/17 08:00 54 09/28/17 07:33 97.7 57 19 119/69 (86) 96 09/28/17 07:00 56 09/28/17 06:31 57 09/28/17 05:10 54 09/28/17 04:10 55 09/28/17 03:22 97.8 75 20 104/59 (74) 97 09/28/17 03:00 59 09/28/17 02:20 56 09/28/17 01:02 56 09/28/17 00:00 58 09/27/17 23:05 98.1 60 18 101/64 (76) 97 09/27/17 23:00 59 09/27/17 22:00 60 09/27/17 21:34 98 09/27/17 21:00 62 09/27/17 20:06 98.1 71 20 119/65 (83) 97 09/27/17 20:00 64 09/27/17 19:00 61 09/27/17 18:50 62 09/27/17 17:18 60 09/27/17 16:20 60 09/27/17 15:30 98.0 62 19 122/58 (79) 99 (Racquel Hooks) -: 09/28/17 0524 09/28/17 0524 Physical Exam General Appearance: No Acute Distress, Comfortable (Racquel Hooks) Eyes Eye Exam: Pupils Equal (Racquel Hooks) Throat Throat Exam: Oral Mucosa [place] & Moist (Racquel Hooks) Neck Neck Exam: Neck Supple (Racquel Hooks) Pulmonary Resp Exam: Breath Sounds Equal, Decreased Bases (Racquel Hooks) Cardiology CV Exam: Regular, Normal Sinus Rhythm (Racquel Hooks) Gastrointestinal/Abdomen GI Exam: Soft, Non-Tender, Bowel Sounds Present (Racquel Hooks) Extremeties Extremities Exam: Trace Edema (Racquel Hooks) Neurologic Neuro Exam: Alert, Awake, Oriented (Racquel Hooks) Psychiatric Psych Exam: Appropriate Responses (Racquel Hooks) Assessment/Plan Assessment Summary: Anemia of CKD, CHF, Hypertension, End Stage Renal Disease Problem List: (1) ESRD on hemodialysis ICD Codes: N18.6 - End stage renal disease; Z99.2 - Dependence on renal dialysis Plan: ESRD HD on //TUE Patient has significant IHD and has low EF. Admitted with chest pain and elevated Troponin possibly NSTEMI. HD yesterday 3 liters removed Heart cath planned for tomorrow Dialysis tomorrow. (2) DM (diabetes mellitus) ICD Codes: E11.9 - Type 2 diabetes mellitus without complications (3) Ischemic cardiomyopathy ICD Codes: I25.5 - Ischemic cardiomyopathy Status: Chronic (4) NSTEMI (non-ST elevation myocardial infarction) ICD Codes: I21.4 - Non-ST elevation (NSTEMI) myocardial infarction Status: Acute (5) Hyperlipidemia ICD Codes: E78.5 - Hyperlipidemia, unspecified Status: Chronic (6) Anemia ICD Codes: D64.9 - Anemia, unspecified Status: Chronic (7) HTN (hypertension) ICD Codes: I10 - Essential (primary) hypertension Status: Chronic (8) Multi-vessel coronary artery stenosis ICD Codes: I25.10 - Atherosclerotic heart disease of [place] coronary artery without angina pectoris Plan (Racquel Hooks) Problem List: (1) ESRD on hemodialysis ICD Codes: N18.6 - End stage renal disease; Z99.2 - Dependence on renal dialysis Plan: ESRD HD on //TUE Patient has significant IHD and has low EF. Admitted with chest pain and elevated Troponin possibly NSTEMI. HD yesterday 3 liters removed Heart cath planned for tomorrow Dialysis tomorrow. Patient seen and examined, agree with above. Possible Cardiac Cath in AM. HD after the Cath. (2) DM (diabetes mellitus) ICD Codes: E11.9 - Type 2 diabetes mellitus without complications (3) Ischemic cardiomyopathy ICD Codes: I25.5 - Ischemic cardiomyopathy Status: Chronic (4) NSTEMI (non-ST elevation myocardial infarction) ICD Codes: I21.4 - Non-ST elevation (NSTEMI) myocardial infarction Status: Acute (5) Hyperlipidemia ICD Codes: E78.5 - Hyperlipidemia, unspecified Status: Chronic (6) Anemia ICD Codes: D64.9 - Anemia, unspecified Status: Chronic (7) HTN (hypertension) ICD Codes: I10 - Essential (primary) hypertension Status: Chronic (8) Multi-vessel coronary artery stenosis ICD Codes: I25.10 - Atherosclerotic heart disease of [place] coronary artery without angina pectoris (Jeana Corona MD) Racquel Hooks Sep 28, 2017 15:20 Jeana Corona MD Sep 28, 2017 18:07
[2017-09-29] VITALS (25 sets, daily range): BP systolic 109–132; BP diastolic 58–79; PULSE 52–69; RESP 18–20; TEMP 98–98.3; O2SAT 92–98
[2017-09-29 07:00] LABS: INTERNATIONAL NORMALIZED RATIO 1.9 RATIO; PROTHROMBIN TIME - PATIENT 18.8 SEC (9.8-11.6)
[2017-09-29 07:07] LABS: AUTOMATED NEUTROPHIL # 4.2 TH/MM3 (1.8-7.7); BASOPHIL # 0.1 TH/MM3 (0-0.2); BASOPHIL % 1.1 % (0.0-2.0); EOSINOPHIL # 0.1 TH/MM3 (0-0.4); EOSINOPHIL % 2.1 % (0.0-4.0); HEMATOCRIT 29.2 % (39.0-51.0); HEMOGLOBIN 9.7 GM/DL (13.0-17.0); LYMPH % 13.5 % (9.0-44.0); LYMPHOCYTE # 0.8 TH/MM3 (1.0-4.8); MEAN CELL VOLUME 97.4 FL (80.0-100.0); MEAN CORPUSCULAR HEMOGLOBIN 32.5 PG (27.0-34.0); MEAN CORPUSCULAR HGB CONC 33.3 % (32.0-36.0); MEAN PLATELET VOLUME 9.4 FL (7.0-11.0); MONO % 8.4 % (0.0-8.0); MONOCYTE # 0.5 TH/MM3 (0-0.9); NEUT % 74.9 % (16.0-70.0); PLATELET COUNT 132 TH/MM3 (150-450); RED CELL DISTRIBUTION WIDTH 16.9 % (11.6-17.2); WHITE BLOOD COUNT 5.7 TH/MM3 (4.0-11.0)
[2017-09-29 07:31] LABS: ALKALINE PHOSPHATASE 96 U/L (45-117); ALT (GPT) 44 U/L (12-78); AST (GOT) 28 U/L (15-37); BICARBONATE 25.3 MEQ/L (21.0-32.0); BLOOD UREA NITROGEN 90 MG/DL (7-18); CALCIUM 8.8 MG/DL (8.5-10.1); CHLORIDE 96 MEQ/L (98-107); FREE T4 1.19 NG/DL (0.76-1.46); GLOMERULAR FILTRATION RATE 5 ML/MIN (>89); GLUCOSE,RANDOM 201 MG/DL (74-106); MAGNESIUM 2.4 MG/DL (1.5-2.5); PHOSPHORUS 5.7 MG/DL (2.5-4.9); SODIUM (NA) 135 MEQ/L (136-145); TOTAL BILIRUBIN ADULT 0.6 MG/DL (0.2-1.0); TOTAL PROTEIN 6.3 GM/DL (6.4-8.2)
[2017-09-29 07:54] LABS: CREATININE 11.59 MG/DL (0.60-1.30)
[2017-09-29] MEDS: INSULIN ASPART SUPPLEMENTAL SCALE SQ SCH ×4 (08:00→21:00)
[2017-09-29] MEDS: CALCIUM ACETATE 667 MG CAP PO SCH ×3 (09:00→17:54)
[2017-09-29] MEDS: DOCUSATE SODIUM 50 MG/SENNA 8.6 MG TAB PO SCH ×2 (09:00→22:06)
[2017-09-29] MEDS: CARVEDILOL 12.5 MG TAB PO SCH ×2 (09:00→21:00)
[2017-09-29] MEDS: TICAGRELOR 90 MG TAB PO SCH (09:34)
[2017-09-29] MEDS: GABAPENTIN 100 MG CAP PO SCH ×3 (09:34→17:54)
[2017-09-29] MEDS: SODIUM CHLORIDE 0.9% FLUSH 10 ML FLUSH IV FLUSH SCH ×2 (09:35→21:00)
[2017-09-29] MEDS: ASPIRIN 81 MG CHEW TAB PO SCH (09:35)
[2017-09-29] MEDS ORDERED: NITROGLYCERIN INJ 5 ML ONE (10:46)
[2017-09-29] MEDS ORDERED: HEPARIN SODIUM - IV 10,000 UNITS/10 ML VIAL ONE (10:46)
[2017-09-29] MEDS ORDERED: HEPARIN-NS/PF FLUSH BAG 2,000 ML IV FLUSH ONE (10:46)
[2017-09-29] MEDS ORDERED: VERAPAMIL HCL 5 MG/2 ML VIAL ONE (10:46)
[2017-09-29] MEDS ORDERED: MIDAZOLAM HCL 2 MG/2 ML VIAL ONE (10:58)
--- NOTE | 2017-09-29 11:33 | CATHPROC ---
[employer] HIS Report Study Information Study Number Admission Scheduled Start Study Start [id number] Sep 24 2017 10:32PM 09/29/2017 Sep 29 2017 10:55AM [facility] Cardiac Catheterization Admit Source Facility Department Other [facility] - [employer] Physician and Clinical Staff Initial José Antonio Michel Per Diem Registered Nurse Gonzales Valerio,LEESA Per [place] Registered Nurse Maria Fernanda Braga,RN Recorder Sabrina Gallo ,RT(R) Scrub Aldo Mahoney RCIS(BS) Procedures Performed Procedure Location (Site) Vessel Name Coronary Angiograms LCA Left Coronary Coronary Angiograms RCA Right Coronary L Heart Cath Wire insertion Fem Art (right) Femoral Art Equipment Time Day Light Relief Operator Description Size Mfg Part Number Used/Scraped TRANSDUCER, TRUWAVE [id number] 11:03 MARTINEZ HESS * Used W/CRISTOBALCOCK *[id number] 11:18 [employer] MEDICAL VASCADE, FR5 CLOSURE SYSTEM FR 5 Used *[id number] INTRODUCER SET, 11:03 [employer] FR 5 [id number] *[id number] Used MICROPUNCTURE STIFF [id number] *[id number] 11:03 [employer] INDUSTRIES PACK, CCL CUSTOM * Used *[id number] 11:11 [employer] JR 4.0 DXTERITY CATHETER FR 5 Used *[id number] 11:03 PST Tankers WIRE, 3MMJ .035 180CM 180CM Used *[id number] 11:03 NAMIC MANIFOLD, 4 PORT * Used *[id number] 11:03 [employer]COMED OMNIPAQUE, 350 MG, 150ML 150ML [id number] Used [id number] 11:03 [facility] BLANKET,WARM AIR CCL * Used *[id number] 11:03 [id number] MEDICAL SHEATH, FR5 TERUMO (10CM) FR 5 Used *[id number] Equipment Model, Serial, Lot Number and Expiration Data Description Model Number Serial Number Lot Number Expiration Date JR 4.0 DXTERITY CATHETER [id number] 04-05-2020 History: Current Medications Medication Dosage/Unit Route Frequency Last Date/Time Taken ASA CARVEDILOL PLAVIX NOVOLOG Coumadin History: Allergies Allergy Reaction No Known Allergies History: Risk Factors Family History of Hypertension Dyslipidemia Previous CO Previous Heart Failure Premature CAD Yes Yes No Yes Yes Prior Valve Prior PCI Prior PCIDate Prior CABG Surgery No Yes 04/21/2017 No Cerebrovascular Peripheral Artery Chronic Lung On Dialysis Diabetes Diabetes Therapy Disease Disease Disease Yes No Yes No Yes Oral History: Risk Factors Selection Items Diabetes Hyperlipidemia Obesity History: CV Disease Selection Items Cardiomyopathy Known CAD History: Stress Tests Stress or Imaging Studies Performed No History: Other Disease Selection Items CAD HTN Renal Failure-Dialysis History: Other Current Smoker No Labs Hgb (g/dl) Hct (%) WBC (l/cumm) Platelets (thousands) 11.60-17.00 35.00-51.00 4.00-11.00 150.00-450.00 9.7 28.7 5.9 138 Glucose (mg/dl) BUN (mg/dl) Creatinine (mg/dl) BUN:Creatinine (1:x) 74.00-106.00 7.00-18.00 0.50-1.30 10.00-20.00 201 90 11.5 7.8 Na (meq/l) K (meq/l) 136.00-145.00 3.50-5.10 132 5.2 INR (PTT:PT) 0.90-1.10 1.9 CPK-MB (ng/ML) 0.50-3.60 Not Drawn Medication Medication Total Dose (Bolus/Oral) Medication Total Dosage/Unit 1% XYLOCAINE 15 mL FENTANYL 25 mcg VERSED 0.5 mg Medications (Bolus/Oral) Medication Time Given Dosage/Unit Administered By Reason VERSED 09/29/2017 11:06:52 AM 0.5 mg Maria Fernanda Braga Patient arrived on 0.5 mg VERSED given by Maria Fernanda Braga, LEESA in Left Antecubital via Peripheral IV. Ordered by José Antonio May FENTANYL 09/29/2017 11:07:17 AM 25 mcg Maria Fernanda Braga 25 mcg FENTANYL given in lab by Maria Fernanda Braga, LEESA in Left Antecubital via Peripheral IV. Ordered by José Antonio May 1% XYLOCAINE 09/29/2017 11:07:37 AM 15 mL José Antonio May 15 mL 1% XYLOCAINE given in lab by José Antonio May in Right Groin via Subcutaneous. Ordered by José Antonio Rahman Medication (Drip) Medication Time Given Dosage/Unit Concentration/Unit Diluent (ml) Solution IV Solutions 09/29/2017 10:55:12 AM 50 mL (IV) NaCl .9 Patient arrived on IV Solutions via Peripheral IV. Pump/Drip Flow using NaCl .9. Initial Case Assessment Cardiovascular HR 59 Edema Present Skin color Skin None Normal Warm Dry Circulatory - Right Pulses Dorsalis Pedis Femoral 1 2 Scale (0,1,2,3,4,d) Circulatory - Left Pulses Dorsalis Pedis Femoral 1 1 Scale (0,1,2,3,4,d) Circulatory - Lower Extremities Color Lower Right Color Lower Left Normal Normal Neurological State Oriented to time-place- Alert Moves all extremities person Respiration - General Respiration Rate SpO2 (%) (B/min) 11 94 Final Case Assessment Cardiovascular HR 59 Edema Present Skin color Skin None Normal Warm Dry Circulatory - Right Pulses Dorsalis Pedis Femoral 1 2 Scale (0,1,2,3,4,d) Circulatory - Left Pulses Dorsalis Pedis Femoral 1 1 Scale (0,1,2,3,4,d) Circulatory - Lower Extremities Color Lower Right Color Lower Left Normal Normal Neurological State Oriented to time-place- Alert Moves all extremities person Respiration - General Respiration Rate SpO2 (%) (B/min) 11 94 Chronological Log Time Study Chronological Log 10:44:42 Patient arrived via Bed. 10:44:45 Patient Name, D.O.B, / Armband Verified By R.N. 10:54:49 Consent signed by the physician and the patient and verified by the [employer] staff. 10:54:49 Pre-op and post- op instructions given; patient acknowledges understanding of instructions. 10:54:51 Verbal Stimulation=2 Physical Stimulation=2 Airway=2 Respiration=2 TOTAL=8. (0=absent, 1=li mited, 2=present) 10:54:54 Presedation assessment performed by [employer]or RN. 10:54:57 Patient has been NPO for More than 6Hrs. 10:54:58 Skin Breakdown- scrape on right knee 10:55:06 Patient Warmer Placed on the Table. 10:55:11 Tabitha Prominences Protected 10:55:11 A # 18 IV was noted in the Antecubital (left). Grade = 0 10:55:12 Patient arrived on IV Solutions via Peripheral IV. Pump/Drip Flow using NaCl .9. 10:55:14 History and physical on the chart or being dictated. Assessment: Initial Case, HR=59 BPM, Edema=None, Color=Normal, Skin = Warm, Dry Right Pulses: Lyle Ped=1, Femoral=2 Left Pulses: Lyle Ped=1, Femoral=1 10:55:15 Lower Right Extremities: Color=Normal Lower Left Extremities: Color=Normal Neurological: State=Alert, Ox3, LUIS Respiration: Resp=11 B/min, SpO2=94 % Vitals capture started with the following parameters, Patient=Adult, Interval=5 min, Initial Pr kabhyf=443 mmHg, 10:55:50 Deflation Rate=5 mmHg, Cuff placed on Left Arm 10:56:33 TCYY=867/88 mmhg, SpO2=92.0 %, Pain=0, Lindy=10, Frances=2 10:57:51 MD paged 10:59:28 MD arrived. 11:01:34 HR=60 bpm, GLAG=788/77 mmhg, SpO2=87.0 %, Resp=8 B/min, Pain=0, Lindy=10, Frances=2 11:02:30 Pressure channel 1 zeroed. Time Out. Correct patient, correct procedure, correct physician, power injector not loaded with contrast with surgical 11:04:57 team present. Time Out Concurred by MD and individual staff in procedure. 11:05:18 Case Start 11:06:33 HR=59 bpm, TDMN=574/85 mmhg, SpO2=95.0 %, Resp=22 B/min, Pain=0, Lindy=10, Frances=2 Patient arrived on 0.5 mg VERSED given by Maria Fernanda Braga RN in Left Antecubital via Periphera l IV. Ordered by 11:06:52 José Antonio May 25 mcg FENTANYL given in lab by Maria Fernanda Braga, LEESA in Left Antecubital via Peripheral IV. Orde red by Lalo, 11:07:17 José Antonio Jones 15 mL 1% XYLOCAINE given in lab by José Antonio May in Right Groin via Subcutaneous. Ordered by Lalo, 11:07:37 José Antonio Jones 11:08:08 Reference ECG taken 11:09:22 Access site was Right Femoral Vein. A INTRODUCER SET, MICROPUNCTURE STIFF FR 5 was advanced into the Fem Art (right) using the Perc utaneous 11::30 technique. 11:09:34 A WIRE, 3MMJ .035 180CM 180CM was inserted via Fem Art (right). A SHEATH, FR5 TERUMO (10CM) FR 5 was exchanged in the Fem Art (right). This was necessary in or latosha to 11:09:51 accomodate a larger catheter. 11:11:10 An injection in the Fem Art (right) was made through the SHEATH, FR5 TERUMO (10CM) FR 5. A JR 4.0 DXTERITY CATHETER FR 5 was advanced over a wire. OMNIPAQUE, 350 MG, 150ML 150ML was us ed for 11:11:30 injections. 11:11:34 HR=59 bpm, YISA=301/82 mmhg, SpO2=91.0 %, Resp=8 B/min, Pain=0, Lindy=10, Frances=2 Recorded Pressure: LV, HR=58, Condition=Condition 1 11:12:21 (Left Ventricle) LV 126/21/33 Recorded Pressure: LV, Ao, HR=61, Condition=Condition 1 11:12:40 (Left Ventricle) LV 131/16/33, (Aorta) Ao 127/62/88 11:13:29 The RCA was injected and visualized at various angles. OMNIPAQUE, 350 MG, 150ML 150ML used . 11:14:04 Catheter was removed A JL 4.0 INFINITI CATHETER FR 5 was advanced over a wire. OMNIPAQUE, 350 MG, 150ML 150ML was us ed for 11:14:21 injections. 11:15:30 The LCA was injected and visualized at various angles. OMNIPAQUE, 350 MG, 150ML 150ML used . 11:16:33 HR=60 bpm, CRPY=809/66 mmhg, SpO2=94.0 %, Resp=13 B/min, Pain=0, Lindy=10, Frances=2 11:17:33 Catheter was removed 11:18:49 VASCADE, FR5 CLOSURE SYSTEM FR 5 placement in the Fem Art (right) 11:21:18 Case End 11:22:09 HR=58 bpm, MEUI=106/77 mmhg, SpO2=93.0 %, Resp=13 B/min Assessment: Final Case, HR=59 BPM, Edema=None, Color=Normal, Skin = Warm, Dry Right Pulses: Lyle Ped=1, Femoral=2 Left Pulses: Lyle Ped=1, Femoral=1 11:22:30 Lower Right Extremities: Color=Normal Lower Left Extremities: Color=Normal Neurological: State=Alert, Ox3, LUIS Respiration: Resp=11 B/min, SpO2=94 % 11:23:44 Catheter(s) removed without difficulty 11:23:47 Sterile dressing applied to site 11:23:48 No case complications noted. 11:23:50 Cine recording checked. 11:23:51 Bedside Report will be given. 11:23:58 A Left Heart Cath was performed. 11:26:33 HR=56 bpm, BAZR=390/76 mmhg, SpO2=97.0 %, Resp=10 B/min, Pain=0, Lindy=10, Frances=2 11:31:12 Vitals capture stopped. 11:31:41 [facility] - Contrast Media Used In Study Contrast Total Opened (mL) Total Used (mL) Total Wasted (mL) Omnipaque 35 35 0 End Study - Maximum Contrast Load Max Contrast Load (mL) 44.9 End Study - Radiation Exposure Fluoro Time (minutes) 1.2 End Study - Sheaths Sheaths Pulled By Sheath Hold Time (min) José Antonio May End Study - Patient Disposition Complications Transferred To Interventional Outcome No Critical Care Bed No attempt made
--- NOTE | 2017-09-29 11:35 | HHI.NPPN ---
Subjective General Problems: Anemia, Edema, Heart Disease, Hypertension Renal Failure: End Stage Renal Disease History of Present Illness 57-year-old male with past medical history of ischemic heart disease, hypertension, cardiomyopathy, end-stage renal disease, on hemodialysis 3 times per week, diabetes mellitus, came to the hospital with a complaint of recurrent chest pain. I was called to see the patient because of management of dialysis. The patient has a known history of ischemic heart disease and congestive heart failure. Additional Remarks Patient for heart cath today. (Racquel Hooks) Review of Systems General Constitutional: Fatigue (Racquel Hooks) Respiratory Lungs: SOB, Cough (Racquel Hooks) Cardiovascular Cardiac: Chest Pain, AUGUSTINE (Racquel Hooks) Objective Data Data Vital Signs Date Time Temp Pulse Resp B/P (MAP) Pulse Ox O2 Delivery O2 Flow Rate FiO2 09/29/17 10:00 60 09/29/17 09:00 60 09/29/17 08:00 66 09/29/17 07:45 98.0 66 20 112/58 (76) 93 09/29/17 07:00 55 09/29/17 05:06 55 09/29/17 04:17 57 09/29/17 03:00 53 09/29/17 03:00 98.3 55 18 127/79 (95) 97 09/29/17 02:12 52 09/29/17 01:00 56 09/29/17 00:00 52 09/28/17 23:15 98.5 54 20 112/74 (87) 98 09/28/17 23:00 54 09/28/17 22:30 52 09/28/17 21:28 56 09/28/17 21:26 98 09/28/17 20:34 19 09/28/17 20:00 57 09/28/17 19:21 98.5 60 19 124/74 (91) 99 09/28/17 19:00 56 09/28/17 18:00 58 09/28/17 17:30 56 09/28/17 16:00 54 09/28/17 15:30 97.9 54 19 108/63 (78) 98 09/28/17 15:00 54 09/28/17 14:00 54 09/28/17 13:00 56 09/28/17 12:00 54 (Racquel Hooks) -: 09/29/17 0559 09/29/17 0559 Physical Exam General Appearance: No Acute Distress, Comfortable (Racquel Hooks) Eyes Eye Exam: Pupils Equal (Racquel Hooks) Throat Throat Exam: Oral Mucosa [place] & Moist (Racquel Hooks) Neck Neck Exam: Neck Supple (Racquel Hooks) Pulmonary Resp Exam: Breath Sounds Equal, Decreased Bases (Racquel Hooks) Cardiology CV Exam: Regular, Normal Sinus Rhythm (Racquel Hooks) Gastrointestinal/Abdomen GI Exam: Soft, Non-Tender, Bowel Sounds Present (Racquel Hooks) Extremeties Extremities Exam: Trace Edema (Racquel Hooks) Neurologic Neuro Exam: Alert, Awake, Oriented (Racquel Hooks) Psychiatric Psych Exam: Appropriate Responses (Racquel Hooks) Assessment/Plan Assessment Summary: Anemia of CKD, CHF, Hypertension, End Stage Renal Disease Problem List: (1) ESRD on hemodialysis ICD Codes: N18.6 - End stage renal disease; Z99.2 - Dependence on renal dialysis Plan: ESRD HD on / Patient has significant IHD and has low EF. Admitted with chest pain and elevated Troponin possibly NSTEMI. Plan Continue phoslo Heart cath today Dialysis planed for today (2) DM (diabetes mellitus) ICD Codes: E11.9 - Type 2 diabetes mellitus without complications (3) Ischemic cardiomyopathy ICD Codes: I25.5 - Ischemic cardiomyopathy Status: Chronic (4) NSTEMI (non-ST elevation myocardial infarction) ICD Codes: I21.4 - Non-ST elevation (NSTEMI) myocardial infarction Status: Acute (5) Hyperlipidemia ICD Codes: E78.5 - Hyperlipidemia, unspecified Status: Chronic (6) Anemia ICD Codes: D64.9 - Anemia, unspecified Status: Chronic (7) HTN (hypertension) ICD Codes: I10 - Essential (primary) hypertension Status: Chronic (8) Multi-vessel coronary artery stenosis ICD Codes: I25.10 - Atherosclerotic heart disease of [place] coronary artery without angina pectoris Plan (Racquel Hooks) Problem List: (1) ESRD on hemodialysis ICD Codes: N18.6 - End stage renal disease; Z99.2 - Dependence on renal dialysis Plan: ESRD HD on //TUE Patient has significant IHD and has low EF. Admitted with chest pain and elevated Troponin possibly NSTEMI. Plan Continue phoslo Heart cath today Dialysis planed for today. Patient seen and examined, agree with above. Cardiac Cath. result noted. Cardiac surgery consulted. (2) DM (diabetes mellitus) ICD Codes: E11.9 - Type 2 diabetes mellitus without complications (3) Ischemic cardiomyopathy ICD Codes: I25.5 - Ischemic cardiomyopathy Status: Chronic (4) NSTEMI (non-ST elevation myocardial infarction) ICD Codes: I21.4 - Non-ST elevation (NSTEMI) myocardial infarction Status: Acute (5) Hyperlipidemia ICD Codes: E78.5 - Hyperlipidemia, unspecified Status: Chronic (6) Anemia ICD Codes: D64.9 - Anemia, unspecified Status: Chronic (7) HTN (hypertension) ICD Codes: I10 - Essential (primary) hypertension Status: Chronic (8) Multi-vessel coronary artery stenosis ICD Codes: I25.10 - Atherosclerotic heart disease of [place] coronary artery without angina pectoris (Jeana Corona MD) Racquel Hooks Sep 29, 2017 11:35 Jeana Corona MD Sep 29, 2017 18:47
--- NOTE | 2017-09-29 12:49 | PD.CARD.PN ---
Subjective Subjective Remarks No events overnight Post-cath, found to have restenosis of LM/LAD/LCx stent Objective Medications Current Medications Medications (Trade) Dose Ordered Sig/Taj Route Start Time Stop Time Status Last Admin (Nitroglycerin 2% Oint) 0.5 inch Q6HR PRN TOPICAL 09/24/17 22:15 (D50w (Vial) Inj) 50 ml UNSCH PRN IV PUSH 09/24/17 22:15 (Glucagon Inj) 1 mg UNSCH PRN OTHER 09/24/17 22:15 (NovoLOG SUPPLEMENTAL SCALE) 1 ACHS SLIDING SCALE SQ 09/25/17 08:00 09/28/17 20:38 (NS Flush) 2 ml UNSCH PRN IV FLUSH 09/24/17 22:15 (NS Flush) 2 ml BID IV FLUSH 09/25/17 09:00 09/29/17 09:35 (Zofran Inj) 4 mg Q6H PRN IVP 09/24/17 22:15 (Tylenol) 650 mg Q6H PRN PO 09/24/17 22:15 (Orestes 5-325 Mg) 1 tab Q4H PRN PO 09/24/17 22:15 09/28/17 18:47 (Morphine Inj) 2 mg Q3H PRN IV PUSH 09/24/17 22:15 (Janett-Colace) 1 tab BID PO 09/25/17 09:00 09/28/17 20:38 (Milk Of Magnesia Liq) 30 ml Q12H PRN PO 09/24/17 22:15 (Senokot) 17.2 mg Q12H PRN PO 09/24/17 22:15 (Dulcolax Supp) 10 mg DAILY PRN RECTAL 09/24/17 22:15 (Lactulose Liq) 30 ml DAILY PRN PO 09/24/17 22:15 (Xanax) 0.25 mg Q8H PRN PO 09/25/17 01:15 (Cordarone) 200 mg BID PO 09/25/17 09:00 Future Hold (Phoslo) 1,334 mg TID PO 09/25/17 09:00 09/28/17 18:47 (Catapres) 0.1 mg BID PO 09/25/17 09:00 Future Hold (Neurontin) 100 mg TID PO 09/25/17 09:00 09/29/17 09:34 (Apresoline) 50 mg TID PO 09/25/17 09:00 Future Hold (Imdur) 60 mg DAILY@07 PO 09/25/17 07:00 Future Hold (Brilinta) 90 mg BID PO 09/25/17 09:00 09/29/17 09:34 (Coreg) 25 mg Q12HR PO 09/25/17 21:00 09/28/17 20:38 (Aspirin Chew) 81 mg DAILY PO 09/25/17 15:30 09/29/17 09:35 Sodium Chloride 1,000 ml @ 0 mls/hr Q0M PRN OTHER 09/26/17 14:46 (Heparin Inj) 8,000 units UNSCH PRN IV FLUSH 09/26/17 15:00 Sodium Chloride 1,000 ml @ 200 mls/hr Q5H PRN IV 09/26/17 14:46 Sodium Chloride 1,000 ml @ 0 mls/hr Q0M PRN OTHER 09/26/17 14:46 (Mannitol Inj) 12.5 gm UNSCH PRN IV 09/26/17 15:00 Albumin Human 100 ml @ 60 mls/hr UNSCH PRN IV 09/26/17 15:00 (NS Flush) 5 ml UNSCH PRN IV FLUSH 09/26/17 15:00 (Heparin Inj) UNSCH PRN .XX 09/26/17 15:00 (Gentamicin Inj) 20 mg UNSCH PRN OTHER 09/26/17 15:00 (Zofran Inj) 4 mg UNSCH PRN IV PUSH 09/26/17 15:00 (Tylenol) 650 mg UNSCH PRN PO 09/26/17 15:00 (Benadryl) 25 mg UNSCH PRN PO 09/26/17 15:00 (Nitrostat Sl) 0.4 mg UNSCH PRN SL 09/26/17 15:00 (Catapres) 0.1 mg UNSCH PRN PO 09/26/17 15:00 (Epogen Inj) 10,000 units UNSCH PRN IV PUSH 09/26/17 15:00 09/27/17 09:34 (Gelfoam 12 Mm/7 Mm Top) 1 foam UNSCH PRN TOP 09/26/17 15:00 09/27/17 09:35 (Heparin Inj) 5,000 units UNSCH PRN IV PUSH 09/29/17 17:45 UNV (Heparin Inj) 2,500 units UNSCH PRN IV PUSH 09/29/17 17:45 UNV Heparin Sodium/ Dextrose 250 ml @ 0 mls/hr TITRATE PRN IV 09/29/17 11:45 UNV Vital Signs / I&O Vital Signs Date Time Temp Pulse Resp B/P (MAP) Pulse Ox O2 Delivery O2 Flow Rate FiO2 09/29/17 12:00 58 09/29/17 12:00 59 20 128/77 (94) 98 09/29/17 10:00 60 09/29/17 09:00 60 09/29/17 08:00 66 09/29/17 07:45 98.0 66 20 112/58 (76) 93 09/29/17 07:00 55 09/29/17 05:06 55 09/29/17 04:17 57 09/29/17 03:00 53 09/29/17 03:00 98.3 55 18 127/79 (95) 97 09/29/17 02:12 52 09/29/17 01:00 56 09/29/17 00:00 52 09/28/17 23:15 98.5 54 20 112/74 (87) 98 09/28/17 23:00 54 09/28/17 22:30 52 09/28/17 21:28 56 09/28/17 21:26 98 09/28/17 20:34 19 09/28/17 20:00 57 09/28/17 19:21 98.5 60 19 124/74 (91) 99 09/28/17 19:00 56 09/28/17 18:00 58 09/28/17 17:30 56 09/28/17 16:00 54 09/28/17 15:30 97.9 54 19 108/63 (78) 98 09/28/17 15:00 54 09/28/17 14:00 54 09/28/17 13:00 56 I/O 09/28/17 09/28/17 09/28/17 09/29/17 09/29/17 09/29/17 07:00 15:00 23:00 07:00 15:00 23:00 Intake Total 360 ml 600 ml 600 ml Output Total 300 ml 200 ml 200 ml Balance 60 ml 400 ml 400 ml Intake Oral 360 ml 600 ml 600 ml Output Urine Total 300 ml 200 ml 200 ml # Bowel Movements 1 Physical Exam GENERAL: NAD, AAOx3 SKIN: Warm and dry. HEAD: Atraumatic. Normocephalic. EYES: Pupils equal and round. No scleral icterus. No injection or drainage. ENT: No nasal bleeding or discharge. Mucous membranes pink and moist. NECK: Trachea midline. No JVD. CARDIOVASCULAR: Regular rate and rhythm. RESPIRATORY: No accessory muscle use. Clear to auscultation. Breath sounds equal bilaterally. GASTROINTESTINAL: Abdomen soft, non-tender, nondistended. Hepatic and splenic margins not palpable. MUSCULOSKELETAL: Extremities without clubbing, cyanosis, or edema. No obvious deformities. NEUROLOGICAL: Awake and alert. No obvious cranial nerve deficits. Motor grossly within normal limits. Five out of 5 muscle strength in the arms and legs. Normal speech. PSYCHIATRIC: Appropriate mood and affect; insight and judgment normal. Laboratory Laboratory Tests Test 09/29/17 05:59 White Blood Count 5.7 TH/MM3 Red Blood Count 3.00 MIL/MM3 Hemoglobin 9.7 GM/DL Hematocrit 29.2 % Mean Corpuscular Volume 97.4 FL Mean Corpuscular Hemoglobin 32.5 PG Mean Corpuscular Hemoglobin Concent 33.3 % Red Cell Distribution Width 16.9 % Platelet Count 132 TH/MM3 Mean Platelet Volume 9.4 FL Neutrophils (%) (Auto) 74.9 % Lymphocytes (%) (Auto) 13.5 % Monocytes (%) (Auto) 8.4 % Eosinophils (%) (Auto) 2.1 % Basophils (%) (Auto) 1.1 % Neutrophils # (Auto) 4.2 TH/MM3 Lymphocytes # (Auto) 0.8 TH/MM3 Monocytes # (Auto) 0.5 TH/MM3 Eosinophils # (Auto) 0.1 TH/MM3 Basophils # (Auto) 0.1 TH/MM3 CBC Comment DIFF FINAL Differential Comment Prothrombin Time 18.8 SEC Prothromb Time International Ratio 1.9 RATIO Blood Urea Nitrogen 90 MG/DL Creatinine 11.59 MG/DL Random Glucose 201 MG/DL Total Protein 6.3 GM/DL Albumin 3.0 GM/DL Calcium Level 8.8 MG/DL Phosphorus Level 5.7 MG/DL Magnesium Level 2.4 MG/DL Alkaline Phosphatase 96 U/L Aspartate Amino Transf (AST/SGOT) 28 U/L Alanine Aminotransferase (ALT/SGPT) 44 U/L Total Bilirubin 0.6 MG/DL Sodium Level 135 MEQ/L Potassium Level 5.2 MEQ/L Chloride Level 96 MEQ/L Carbon Dioxide Level 25.3 MEQ/L Anion Gap 14 MEQ/L Estimat Glomerular Filtration Rate 5 ML/MIN Free Thyroxine 1.19 NG/DL Thyroid Stimulating Hormone 3rd Gen 10.000 uIU/ML Assessment and Plan Problem List: (1) Multi-vessel coronary artery stenosis ICD Codes: I25.10 - Atherosclerotic heart disease of ruby coronary artery without angina pectoris (2) NSTEMI (non-ST elevation myocardial infarction) ICD Codes: I21.4 - Non-ST elevation (NSTEMI) myocardial infarction Status: Acute (3) Ischemic cardiomyopathy ICD Codes: I25.5 - Ischemic cardiomyopathy Status: Chronic (4) ESRD (end stage renal disease) ICD Codes: N18.6 - End stage renal disease Status: Acute (5) DM (diabetes mellitus) ICD Codes: E11.9 - Type 2 diabetes mellitus without complications (6) Hyperlipidemia ICD Codes: E78.5 - Hyperlipidemia, unspecified Status: Chronic (7) HTN (hypertension) ICD Codes: I10 - Essential (primary) hypertension Status: Chronic (8) ESRD on hemodialysis ICD Codes: N18.6 - End stage renal disease; Z99.2 - Dependence on renal dialysis Assessment and Plan 1) Elevated troponin/CAD Restenosis of LM/LAD/LCx stent CT surgery evaluation as targets are now better Repeat 2D echo Heparin drip 2) ESRD on HD José Antonio May DO Sep 29, 2017 12:49
[2017-09-29] MEDS ORDERED: IOHEXOL 350 MG/ML 50 ML BTL (for Cath Lab) OTHER ONE (13:30)
[2017-09-29 13:47] LABS: HEMOGLOBIN 8.7 GM/DL (13.0-17.0); MEAN CELL VOLUME 96.8 FL (80.0-100.0); MEAN CORPUSCULAR HEMOGLOBIN 32.6 PG (27.0-34.0); MEAN CORPUSCULAR HGB CONC 33.7 % (32.0-36.0); MEAN PLATELET VOLUME 9.3 FL (7.0-11.0); PLATELET COUNT 125 TH/MM3 (150-450); RED BLOOD COUNT 2.69 MIL/MM3 (4.50-5.90); RED CELL DISTRIBUTION WIDTH 17.4 % (11.6-17.2); WHITE BLOOD COUNT 5.3 TH/MM3 (4.0-11.0)
[2017-09-29 13:58] LABS: INTERNATIONAL NORMALIZED RATIO 1.8 RATIO; PROTHROMBIN TIME - PATIENT 17.9 SEC (9.8-11.6)
--- NOTE | 2017-09-29 15:02 | HHI.PR ---
Subjective Remarks This is a 57-year-old male with a PMH of HTN, CAD, Ischemic Cardiomyopathy ( Echo 08/03/2017 w/ EF 40-45%), DM and ESRD on HD T//Tue who presented to the ER w/ complaints of chest pain and SOB. Recent admit for similar complaints 08/01- found to have NSTEMI, s/p Cath w/ PCI of LM/LAD/LCx, reports on Brilinta and Coumadin, compliant w/ meds. States doing well after discharge, but had PFTs done 09/16/17 and developed severe chest pain few days after. Pain is substernal, 02/03, non-radiating, associated w/ SOB. On arrival, BP 106/66, HR 62, O2 sat 98% RA, Afebrile. CBC at baseline. Chemistry essentially at baseline. Troponin 0.74. INR 2.7. CXR with no acute findings. Currently chest pain free. Follows w/ Dr. May w/ Cardiology and Dr. Corona w/ Nephro 4-2 Denies chest pain this morning. Mild dyspnea. 4-3 Patient seen after dialysis. He denies any chest pain. Still reports some mild SOB with activities. 4-4 patient is now scheduled to undergo cardiac catheterization hopefully tomorrow September 29 due to his coagulopathy. Patient will obviously need to have hemodialysis after his cardiac catheterization Have discussed with patient and RN and case management and family Await his INR to come down lower than 2.0 4-5 patient underwent his cardiac catheterization today. And cardiovascular surgery has not been consult. Have discussed with Dr. May Patient was seen in dialysis. Discussed the situation with him He is amenable to whatever is suggested Have discussed with him and cardiology and RN and case management and the patient Objective Vitals Vital Signs Date Time Temp Pulse Resp B/P (MAP) Pulse Ox O2 Delivery O2 Flow Rate FiO2 09/29/17 13:00 60 09/29/17 12:10 55 09/29/17 12:00 58 09/29/17 12:00 59 20 128/77 (94) 98 09/29/17 10:00 60 09/29/17 09:00 60 09/29/17 08:00 66 09/29/17 07:45 98.0 66 20 112/58 (76) 93 09/29/17 07:00 55 4/5/18 05:06 55 09/29/17 04:17 57 09/29/17 03:00 53 09/29/17 03:00 98.3 55 18 127/79 (95) 97 09/29/17 02:12 52 09/29/17 01:00 56 09/29/17 00:00 52 09/28/17 23:15 98.5 54 20 112/74 (87) 98 09/28/17 23:00 54 09/28/17 22:30 52 09/28/17 21:28 56 09/28/17 21:26 98 09/28/17 20:34 19 09/28/17 20:00 57 09/28/17 19:21 98.5 60 19 124/74 (91) 99 09/28/17 19:00 56 09/28/17 18:00 58 09/28/17 17:30 56 09/28/17 16:00 54 09/28/17 15:30 97.9 54 19 108/63 (78) 98 09/28/17 15:00 54 I/O 09/28/17 09/28/17 09/28/17 09/29/17 09/29/17 09/29/17 07:00 15:00 23:00 07:00 15:00 23:00 Intake Total 360 ml 600 ml 600 ml Output Total 300 ml 200 ml 200 ml Balance 60 ml 400 ml 400 ml Intake Oral 360 ml 600 ml 600 ml Output Urine Total 300 ml 200 ml 200 ml # Bowel Movements 1 Result Diagram: 09/29/17 1230 09/29/17 0559 Other Results Laboratory Tests Test 09/27/17 08:30 09/28/17 05:24 09/29/17 05:59 09/29/17 12:30 White Blood Count 6.1 TH/MM3 5.9 TH/MM3 5.7 TH/MM3 5.3 TH/MM3 Red Blood Count 3.02 MIL/MM3 3.00 MIL/MM3 3.00 MIL/MM3 2.69 MIL/MM3 Hemoglobin 9.8 GM/DL 9.7 GM/DL 9.7 GM/DL 8.7 GM/DL Hematocrit 29.3 % 28.7 % 29.2 % 26.0 % Mean Corpuscular Volume 97.1 FL 95.8 FL 97.4 FL 96.8 FL Mean Corpuscular Hemoglobin 32.4 PG 32.3 PG 32.5 PG 32.6 PG Mean Corpuscular Hemoglobin Concent 33.4 % 33.8 % 33.3 % 33.7 % Red Cell Distribution Width 17.6 % 17.5 % 16.9 % 17.4 % Platelet Count 144 TH/MM3 138 TH/MM3 132 TH/MM3 125 TH/MM3 Mean Platelet Volume 9.6 FL 9.3 FL 9.4 FL 9.3 FL Neutrophils (%) (Auto) 75.3 % 74.0 % 74.9 % Lymphocytes (%) (Auto) 14.6 % 14.9 % 13.5 % Monocytes (%) (Auto) 6.9 % 8.3 % 8.4 % Eosinophils (%) (Auto) 2.0 % 1.8 % 2.1 % Basophils (%) (Auto) 1.2 % 1.0 % 1.1 % Neutrophils # (Auto) 4.6 TH/MM3 4.4 TH/MM3 4.2 TH/MM3 Lymphocytes # (Auto) 0.9 TH/MM3 0.9 TH/MM3 0.8 TH/MM3 Monocytes # (Auto) 0.4 TH/MM3 0.5 TH/MM3 0.5 TH/MM3 Eosinophils # (Auto) 0.1 TH/MM3 0.1 TH/MM3 0.1 TH/MM3 Basophils # (Auto) 0.1 TH/MM3 0.1 TH/MM3 0.1 TH/MM3 CBC Comment DIFF FINAL DIFF FINAL DIFF FINAL Differential Comment Prothrombin Time 34.3 SEC 25.2 SEC 18.8 SEC 17.9 SEC Prothromb Time International Ratio 3.4 RATIO 2.5 RATIO 1.9 RATIO 1.8 RATIO Blood Urea Nitrogen 98 MG/DL 78 MG/DL 90 MG/DL Creatinine 10.97 MG/DL 9.80 MG/DL 11.59 MG/DL Random Glucose 194 MG/DL 150 MG/DL 201 MG/DL Calcium Level 9.0 MG/DL 8.7 MG/DL 8.8 MG/DL Sodium Level 135 MEQ/L 139 MEQ/L 135 MEQ/L Potassium Level 5.0 MEQ/L 4.8 MEQ/L 5.2 MEQ/L Chloride Level 99 MEQ/L 100 MEQ/L 96 MEQ/L Carbon Dioxide Level 20.1 MEQ/L 26.5 MEQ/L 25.3 MEQ/L Anion Gap 16 MEQ/L 13 MEQ/L 14 MEQ/L Estimat Glomerular Filtration Rate 5 ML/MIN 6 ML/MIN 5 ML/MIN Total Protein 6.3 GM/DL Albumin 3.0 GM/DL Phosphorus Level 5.7 MG/DL Magnesium Level 2.4 MG/DL Alkaline Phosphatase 96 U/L Aspartate Amino Transf (AST/SGOT) 28 U/L Alanine Aminotransferase (ALT/SGPT) 44 U/L Total Bilirubin 0.6 MG/DL Free Thyroxine 1.19 NG/DL Thyroid Stimulating Hormone 3rd Gen 10.000 uIU/ML Activated Partial Thromboplast Time 35.6 SEC Imaging Last Impressions Chest X-Ray 09/24/172031 Signed Impressions: Service Date/Time: Sunday, September 24, 2017 20:52 - CONCLUSION: No acute disease. Son Siu MD Objective Remarks GENERAL: Awake alert and oriented 3 talkative and cooperative --does not appear to be in any major distress SKIN: Warm and dry. HEAD: Atraumatic. Normocephalic. EYES: Pupils equal and round. No scleral icterus. No injection or drainage. Extraocular muscles intact ENT: No nasal bleeding or discharge. Mucous membranes pink and moist. Tongue is midline NECK: Trachea midline. No JVD. Supple CARDIOVASCULAR: Regular rate and rhythm. S1-S2 no S3 or S4 RESPIRATORY: No accessory muscle use. Clear to auscultation. Breath sounds equal bilaterally. GASTROINTESTINAL: Abdomen soft, non-tender, nondistended. Hepatic and splenic margins not palpable. Obese MUSCULOSKELETAL: Extremities without clubbing, cyanosis, or edema. No obvious deformities. Right upper extremity AV fistula with good thrill and bruit in the forearm NEUROLOGICAL: Awake and alert. No obvious cranial nerve deficits. Motor grossly within normal limits. Five out of 5 muscle strength in the arms and legs. Normal speech. PSYCHIATRIC: Appropriate mood and affect; insight and judgment normal. Procedures Hemodialysis 4-5 cardiac catheterization Post-cath, found to have restenosis of LM/LAD/LCx stent --cardio vascular surgery has been consulted Medications and IVs Current Medications Sodium Chloride (NS Flush) 2 ml UNSCH PRN IVF FLUSH AFTER USING IV ACCESS; Start 09/24/17 at 20:45; Stop 09/24/17 at 22:18; Status DC Nitroglycerin (Nitroglycerin 2% Oint) 0.5 inch Q6HR PRN TOPICAL CHEST PAIN; Start 09/24/17 at 22:15 Dextrose (D50w (Vial) Inj) 50 ml UNSCH PRN IV PUSH HYPOGLYCEMIA-SEE COMMENTS; Start 09/24/17 at 22:15 Glucagon (Glucagon Inj) 1 mg UNSCH PRN OTHER HYPOGLYCEMIA-SEE COMMENTS; Start 09/24/17 at 22:15 Insulin Aspart (NovoLOG SUPPLEMENTAL SCALE) 1 ACHS SLIDING SCALE SQ Last administered on 09/28/17at 20:38; Start 09/25/17 at 08:00 Sodium Chloride (NS Flush) 2 ml UNSCH PRN IV FLUSH FLUSH AFTER USING IV ACCESS ; Start 09/24/17 at 22:15 Sodium Chloride (NS Flush) 2 ml BID IV FLUSH Last administered on 09/29/17at 09: 35; Start 09/25/17 at 09:00 Ondansetron HCl (Zofran Inj) 4 mg Q6H PRN IVP NAUSEA OR VOMITING; Start at 22:15 Acetaminophen (Tylenol) 650 mg Q6H PRN PO FEVER/PAIN SCALE 1 TO 2; Start at 22:15 Acetaminophen/ Hydrocodone Bitart (Drury 5-325 Mg) 1 tab Q4H PRN PO PAIN SCALE 3 TO 5 Last administered on 09/28/17at 18:47; Start 09/24/17 at 22:15 Morphine Sulfate (Morphine Inj) 2 mg Q3H PRN IV PUSH Pain 6-10; Start 09/24/17 at 22:15 Senna/Docusate Sodium (Janett-Colace) 1 tab BID PO Last administered on 09/28/17at 20:38; Start 09/25/17 at 09:00 Magnesium Hydroxide (Milk Of Magnesia Liq) 30 ml Q12H PRN PO Mild constipation ; Start 09/24/17 at 22:15 Sennosides (Senokot) 17.2 mg Q12H PRN PO Moderate constipation; Start 09/24/17 at 22:15 Bisacodyl (Dulcolax Supp) 10 mg DAILY PRN RECTAL SEVERE CONSITIPATION/ IF NPO ; Start 09/24/17 at 22:15 Lactulose (Lactulose Liq) 30 ml DAILY PRN PO SEVERE CONSITIPATION/ IF PO; Start 09/24/17 at 22:15 Alprazolam (Xanax) 0.25 mg Q8H PRN PO ANXIETY; Start 09/25/17 at 01:15 Amiodarone HCl (Cordarone) 200 mg BID PO ; Start 09/25/17 at 09:00; Status Future Hold Calcium Acetate (Phoslo) 1,334 mg TID PO Last administered on 09/28/17at 18:47; Start 09/25/17 at 09:00 Carvedilol (Coreg) 25 mg BID PO ; Start 09/25/17 at 09:00; Stop 09/25/17 at 15:45 ; Status DC Clonidine (Catapres) 0.1 mg BID PO ; Start 09/25/17 at 09:00; Status Future Hold Gabapentin (Neurontin) 100 mg TID PO Last administered on 09/29/17at 09:34; Start 09/25/17 at 09:00 Hydralazine HCl (Apresoline) 50 mg TID PO ; Start 09/25/17 at 09:00; Status Future Hold Isosorbide Mononitrate (Imdur) 60 mg DAILY@07 PO ; Start 09/25/17 at 07:00; Status Future Hold Ticagrelor (Brilinta) 90 mg BID PO Last administered on 09/29/17at 09:34; Start 09/25/17 at 09:00 Sodium Chloride 500 ml @ 500 mls/hr BOLUS ONCE IV Last administered on at 02:48; Start 09/25/17 at 02:45; Stop 09/25/17 at 03:44; Status DC Dextrose/Sodium Chloride 500 ml @ 500 mls/hr BOLUS ONCE IV Last administered on 09/25/17at 04:14; Start 09/25/17 at 04:00; Stop 09/25/17 at 04:59; Status DC Nitroglycerin (Nitroglycerin 2% Oint) 1 inch Q6HR TOPICAL Last administered on 09/26/17at 17:53; Start 09/25/17 at 18:00; Stop 09/26/17 at 18:42; Status DC Carvedilol (Coreg) 25 mg Q12HR PO Last administered on 09/28/17at 20:38; Start at 21:00 Aspirin (Aspirin Chew) 81 mg DAILY PO Last administered on 09/29/17at 09:35; Start 09/25/17 at 15:30 Sodium Chloride 1,000 ml @ 0 mls/hr Q0M PRN OTHER For Prime & Rinse Back; Start 09/26/17 at 14:46 Heparin Sodium (Porcine) (Heparin Inj) 8,000 units UNSCH PRN IV FLUSH WITH DIALYSIS; Start 09/26/17 at 15:00 Sodium Chloride 1,000 ml @ 200 mls/hr Q5H PRN IV WITH DIALYSIS; Start 09/26/17 at 14:46 Sodium Chloride 1,000 ml @ 0 mls/hr Q0M PRN OTHER WITH DIALYSIS; Start 09/26/17 at 14:46 Mannitol (Mannitol Inj) 12.5 gm UNSCH PRN IV WITH DIALYSIS; Start 09/26/17 at 15 :00 Albumin Human 100 ml @ 60 mls/hr UNSCH PRN IV WITH DIALYSIS; Start 09/26/17 at 15:00 Sodium Chloride (NS Flush) 5 ml UNSCH PRN IV FLUSH WITH DIALYSIS; Start at 15:00 Heparin Sodium (Porcine) (Heparin Inj) UNSCH PRN .XX WITH DIALYSIS; Start 09/26 at 15:00 Gentamicin Sulfate (Gentamicin Inj) 20 mg UNSCH PRN OTHER WITH DIALYSIS; Start 09/26/17 at 15:00 Ondansetron HCl (Zofran Inj) 4 mg UNSCH PRN IV PUSH WITH DIALYSIS; Start at 15:00 Acetaminophen (Tylenol) 650 mg UNSCH PRN PO for headach, pain, temp > 101F; Start 09/26/17 at 15:00 Diphenhydramine HCl (Benadryl) 25 mg UNSCH PRN PO for hives/itching/anaphylaxis ; Start 09/26/17 at 15:00 Nitroglycerin (Nitrostat Sl) 0.4 mg UNSCH PRN SL CHEST PAIN; Start 09/26/17 at 15:00 Clonidine (Catapres) 0.1 mg UNSCH PRN PO for BP > 180/100 X 2 readings; Start 09/26/17 at 15:00 Epoetin Abraham (Epogen Inj) 10,000 units UNSCH PRN IV PUSH WITH DIALYSIS Last administered on 09/27/17at 09:34; Start 09/26/17 at 15:00 Gelatin (Gelfoam 12 Mm/7 Mm Top) 1 foam UNSCH PRN TOP SEE LABEL COMMENTS Last administered on 09/27/17at 09:35; Start 09/26/17 at 15:00 Heparin Sodium/ Sodium Chloride 2,000 ml @ As Directed STK-MED ONCE IV FLUSH ; Start 09/29/17 at 10:46; Stop 09/29/17 at 10:47; Status DC Verapamil HCl (Isoptin Inj) 5 mg STK-MED ONCE .ROUTE ; Start 09/29/17 at 10:46; Stop 09/29/17 at 10:47; Status DC Heparin Sodium (Porcine) (Heparin Inj) 10,000 units STK-MED ONCE .ROUTE ; Start 09/29/17 at 10:46; Stop 09/29/17 at 10:47; Status DC Nitroglycerin 5 ml @ As Directed STK-MED ONCE .ROUTE ; Start 09/29/17 at 10:46; Stop 09/29/17 at 10:47; Status DC Midazolam HCl (Versed Inj) 2 mg STK-MED ONCE .ROUTE ; Start 09/29/17 at 10:58; Stop 09/29/17 at 10:59; Status DC Fentanyl Citrate (fentaNYL INJ) 100 mcg STK-MED ONCE .ROUTE ; Start 09/29/17 at 10:58; Stop 09/29/17 at 10:59; Status DC Heparin Sodium (Porcine) (Heparin Inj) 5,000 units UNSCH PRN IV PUSH APTT LESS THAN 25; Start 09/29/17 at 17:45; Status UNV Heparin Sodium (Porcine) (Heparin Inj) 2,500 units UNSCH PRN IV PUSH APTT 25 TO 39; Start 09/29/17 at 17:45; Status UNV Heparin Sodium/ Dextrose 250 ml @ 0 mls/hr TITRATE PRN IV Coagulation Management; Start 09/29/17 at 11:45; Status UNV Iohexol (OMNIPAQUE 350 INJ (Elect[employer]ics [employer] Sales Representative)) 50 ml STK-MED ONCE OTHER ; Start 09/29/17 at 13:30; Stop 09/29/17 at 13:31; Status DC A/P Problem List: (1) NSTEMI (non-ST elevation myocardial infarction) ICD Code: I21.4 - Non-ST elevation (NSTEMI) myocardial infarction Status: Acute (2) Ischemic cardiomyopathy ICD Code: I25.5 - Ischemic cardiomyopathy Status: Chronic (3) ESRD (end stage renal disease) ICD Code: N18.6 - End stage renal disease Status: Acute (4) DM (diabetes mellitus) ICD Code: E11.9 - Type 2 diabetes mellitus without complications Assessment and Plan 57-year-old male with: 1. NSTEMI: c/o chest pain, recent NSTEMI s/p PCI, now w/ Trop 0.74, - Cardiology following. Concerned about restonosis. Cardiology planning for repeat heart cath depending on follow up INR levels. - Continue Aspirin, Brilinta, bb Had cardiac catheterization September 29 post-cath, found to have restenosis of LM/ LAD/LCx stent 2. Ischemic Cardiomyopathy: Echo 08/03/17 w/ EF 40-45%, CXR w/ no acute findings. Resume home medications. Monitor I/O. 3. DM: Sliding scale w/ Accu-Cheks. 4. ESRD on HD: T//Tue. Nephrology, Dr. Corona following. Obesity weight loss recommended 5. DVT Prophylaxis: On Coumadin/Brilinta. Follow INR in am. Coumadin is on hold at this time A.m. labs Discharge Planning Pending cardiac and renal clearance Jason Craig DO Sep 29, 2017 15:02
[2017-09-29] MEDS: GELATIN 12 MM/7 MM FOAM TOP PRN (16:27)
[2017-09-29] MEDS: EPOETIN ALFA 10,000 UNITS/ML VIAL IV PUSH PRN (16:28)
[2017-09-29 17:12] LABS: HEMOGLOBIN A1C 7.4 % (4.3-6.0)
[2017-09-29] MEDS ORDERED: HEPARIN SODIUM - IV 10,000 UNITS/10 ML VIAL IV PUSH PRN (17:45)
[2017-09-29] MEDS: HEPARIN-D5W 25,000 U/250 ML 250 ML IV PRN (17:50)
[2017-09-29] MEDS: ACETAMINOPHEN/HYDROcodone 325 MG/5 MG TAB PO PRN (17:55)
[2017-09-30] VITALS (27 sets, daily range): BP systolic 91–111; BP diastolic 60–71; PULSE 52–69; RESP 18–20; TEMP 98–98.5; O2SAT 93–99
--- NOTE | 2017-09-30 00:15 | MA ---
cc: José Antonio May DO DATE: 09/29/2017 DATE OF PROCEDURE: 09/29/2017. PROCEDURE: Left heart catheterization, coronary angiogram, moderate sedation 25 minutes, Vascade femoral closure. PREPROCEDURE DIAGNOSES: Vdg-[id number]-[id number] myocardial infarction, coronary artery disease. POSTPROCEDURE DIAGNOSIS: Coronary artery disease, restenosis of left main/left anterior descending/left circumflex stents. MEDICATIONS: Versed 0.5 mg, fentanyl 25 mcg. CONTRAST USED: 35 mL FLUOROSCOPY: 1.2 minutes. MODERATE SEDATION: 25 minutes. ESTIMATED BLOOD LOSS: 10 mL. PROCEDURAL SUMMARY: Dandy Singleton is a pleasant 57-year-old male whom I see in the office and presented to [facility] due to chest pain. He was found to have an elevated troponin and recommended cardiac catheterization. Risks, benefits and alternatives were explained to him and he consented to such. He was brought to the lab and prepped in the usual sterile fashion. Left femoral artery was accessed using modified Seldinger technique and placement of a 5-[place] sheath. This was easily aspirated and flushed. A JR4 was advanced over a J-wire to the ascending aorta and across the aortic valve for measurement of left ventricular pressure. This was pulled back across the aortic valve, showing no significant gradient of aortic stenosis. The JR4 was used for selective angiography of the right coronary artery system. This was then exchanged for a JL4, which was used for selective angiography of the left coronary artery system. The JL4 was removed over a J-wire. Vascade femoral closure device was used for the arteriotomy. The patient left the lab head cardiovascularly stable. FINDINGS: Left main stent patent with 70% in-stent restenosis. It bifurcates into an LAD and circumflex. LAD stent and the stent from the left main into the LAD has a 90% in-stent restenosis. Mid to distal stent is patent. Distally, the vessel has diffuse 30% disease. Left circumflex stent from left main into left circumflex has a 95% restenosis. Stent in the mid portion is patent with no significant disease. It gives off 2 obtuse marginals with no significant disease. RCA is a normal size vessel with 30% disease throughout the proximal portion. Distally, the vessel is diffusely diseased of 80% to 90% throughout with subtotal occlusions. LVEDP 30. IMPRESSION: 1. Non-ST elevation myocardial infarction. 2. Coronary artery disease with complex percutaneous coronary intervention of left main, left anterior descending and left circumflex previously. RECOMMENDATIONS: 1. Mr. Singleton presented again with an elevated troponin and once again was found to have restenosis of his complex PCI. 2. As the last time I attempted to use laser arthrectomy and cutting balloons and still had restenosis, as well as now the vessels have increased in size distally due to better flow, I think that he should undergo consideration of coronary artery bypass grafting. 3. I have discussed this with CT surgery and they will see him in consultation. 4. Due to the significance of his disease, he will be placed on a heparin drip 5 hours after sheath was removed. 5. We will plan on rechecking an echo to look at his overall left ventricular function in anticipation of coronary artery bypass grafting. 6. His Brilinta will be held for anticipated coronary artery bypass grafting. 7. If at any time he has significant chest pain or becomes hemodynamically or electrically unstable, he will be taken back to the lab head emergently for placement of intraaortic balloon pump. 8. We will plan on having him undergo hemodialysis after cardiac catheterization. Thank you for allowing me to see Dandy Singleton. If there are any questions, please do not hesitate to call. DO PAMELLA Diaz/SM , 11:52 PM , 12:14 AM
[2017-09-30] MEDS: HEPARIN SODIUM - IV 10,000 UNITS/10 ML VIAL IV PUSH PRN ×2 (02:46→17:33)
[2017-09-30] MEDS: BENZONATATE 100 MG CAP PO PRN (02:51)
[2017-09-30 06:55] LABS: AUTOMATED NEUTROPHIL # 6.3 TH/MM3 (1.8-7.7); BASOPHIL # 0.1 TH/MM3 (0-0.2); BASOPHIL % 0.7 % (0.0-2.0); EOSINOPHIL % 0.2 % (0.0-4.0); HEMATOCRIT 31.3 % (39.0-51.0); HEMOGLOBIN 10.4 GM/DL (13.0-17.0); LYMPHOCYTE # 0.6 TH/MM3 (1.0-4.8); MEAN CELL VOLUME 97.3 FL (80.0-100.0); MEAN CORPUSCULAR HEMOGLOBIN 32.3 PG (27.0-34.0); MEAN CORPUSCULAR HGB CONC 33.1 % (32.0-36.0); MEAN PLATELET VOLUME 9.5 FL (7.0-11.0); MONO % 8.2 % (0.0-8.0); MONOCYTE # 0.6 TH/MM3 (0-0.9); NEUT % 82.9 % (16.0-70.0); PLATELET COUNT 142 TH/MM3 (150-450); RED BLOOD COUNT 3.22 MIL/MM3 (4.50-5.90); RED CELL DISTRIBUTION WIDTH 17.7 % (11.6-17.2); WHITE BLOOD COUNT 7.6 TH/MM3 (4.0-11.0)
[2017-09-30 07:08] LABS: INTERNATIONAL NORMALIZED RATIO 1.8 RATIO; PROTHROMBIN TIME - PATIENT 18.2 SEC (9.8-11.6)
[2017-09-30 07:25] LABS: ALKALINE PHOSPHATASE 122 U/L (45-117); ALT (GPT) 45 U/L (12-78); AST (GOT) 31 U/L (15-37); BICARBONATE 27.6 MEQ/L (21.0-32.0); BLOOD UREA NITROGEN 69 MG/DL (7-18); CALCIUM 8.7 MG/DL (8.5-10.1); CHLORIDE 95 MEQ/L (98-107); GLOMERULAR FILTRATION RATE 5 ML/MIN (>89); GLUCOSE,RANDOM 272 MG/DL (74-106); MAGNESIUM 2.4 MG/DL (1.5-2.5); PHOSPHORUS 4.9 MG/DL (2.5-4.9); SODIUM (NA) 134 MEQ/L (136-145); TOTAL BILIRUBIN ADULT 0.7 MG/DL (0.2-1.0); TOTAL PROTEIN 6.6 GM/DL (6.4-8.2)
[2017-09-30 07:56] LABS: CREATININE 10.33 MG/DL (0.60-1.30)
[2017-09-30] MEDS: SODIUM CHLORIDE 0.9% FLUSH 10 ML FLUSH IV FLUSH SCH ×4 (09:00→21:00)
[2017-09-30] MEDS: DOCUSATE SODIUM 50 MG/SENNA 8.6 MG TAB PO SCH ×2 (09:15→21:00)
[2017-09-30] MEDS: ASPIRIN 81 MG CHEW TAB PO SCH (09:15)
[2017-09-30] MEDS: CALCIUM ACETATE 667 MG CAP PO SCH ×3 (09:15→16:56)
[2017-09-30] MEDS: GABAPENTIN 100 MG CAP PO SCH ×3 (09:15→16:56)
[2017-09-30] MEDS: CARVEDILOL 12.5 MG TAB PO SCH ×2 (09:16→20:59)
[2017-09-30] MEDS: INSULIN ASPART SUPPLEMENTAL SCALE SQ SCH ×4 (09:17→21:00)
--- NOTE | 2017-09-30 11:03 | HHI.PR ---
Subjective Remarks This is a 57-year-old male with a PMH of HTN, CAD, Ischemic Cardiomyopathy ( Echo 08/03/2017 w/ EF 40-45%), DM and ESRD on HD T//Tue who presented to the ER w/ complaints of chest pain and SOB. Recent admit for similar complaints 08/01- found to have NSTEMI, s/p Cath w/ PCI of LM/LAD/LCx, reports on Brilinta and Coumadin, compliant w/ meds. States doing well after discharge, but had PFTs done 09/16/17 and developed severe chest pain few days after. Pain is substernal, 02/03, non-radiating, associated w/ SOB. On arrival, BP 106/66, HR 62, O2 sat 98% RA, Afebrile. CBC at baseline. Chemistry essentially at baseline. Troponin 0.74. INR 2.7. CXR with no acute findings. Currently chest pain free. Follows w/ Dr. May w/ Cardiology and Dr. Corona w/ Nephro 4-2 Denies chest pain this morning. Mild dyspnea. 4-3 Patient seen after dialysis. He denies any chest pain. Still reports some mild SOB with activities. 4-4 patient is now scheduled to undergo cardiac catheterization hopefully tomorrow September 29 due to his coagulopathy. Patient will obviously need to have hemodialysis after his cardiac catheterization Have discussed with patient and RN and case management and family Await his INR to come down lower than 2.0 4-5 patient underwent his cardiac catheterization today. And cardiovascular surgery has not been consult. Have discussed with Dr. May Patient was seen in dialysis. Discussed the situation with him He is amenable to whatever is suggested Have discussed with him and cardiology and RN and case management and the patient 4-6 patient had cardiac catheterization yesterday Seen during dialysis yesterday Await cardiovascular surgery today discussed with patient and RN and family and case management Await cardiovascular surgery opinion Objective Vitals Vital Signs Date Time Temp Pulse Resp B/P (MAP) Pulse Ox O2 Delivery O2 Flow Rate FiO2 09/30/17 09:00 62 09/30/17 08:00 64 09/30/17 07:15 98.5 64 18 111/71 (84) 98 09/30/17 07:15 66 09/30/17 06:00 64 09/30/17 05:00 66 09/30/17 04:00 67 09/30/17 04:00 98.1 69 20 111/69 (83) 97 09/30/17 03:00 68 09/30/17 02:00 64 09/30/17 01:00 66 09/30/17 00:00 98.2 66 20 100/70 (80) 93 09/30/17 00:00 67 09/29/17 23:00 68 09/29/17 22:00 66 09/29/17 21:00 66 09/29/17 20:00 68 09/29/17 20:00 98.2 69 20 109/70 (83) 92 09/29/17 19:00 68 09/29/17 18:00 66 09/29/17 17:00 64 09/29/17 16:45 60 18 132/74 (93) 94 09/29/17 16:00 68 09/29/17 15:00 68 09/29/17 14:00 60 09/29/17 13:00 60 09/29/17 12:10 55 09/29/17 12:00 58 09/29/17 12:00 59 20 128/77 (94) 98 I/O 09/29/17 09/29/17 09/29/17 09/30/17 09/30/17 09/30/17 07:00 15:00 23:00 07:00 15:00 23:00 Intake Total 600 ml 250 ml 240 ml Output Total 200 ml 3000 ml 400 ml Balance 400 ml -2750 ml -160 ml Intake Oral 600 ml 240 ml 240 ml IV Total 10 ml Output Urine Total 200 ml 0 ml 400 ml Hemodialysis 3000 ml Result Diagram: 09/30/1718 09/30/17617 Other Results Current Medications Sodium Chloride (NS Flush) 2 ml UNSCH PRN IVF FLUSH AFTER USING IV ACCESS; Start 09/24/17 at 20:45; Stop 09/24/17 at 22:18; Status DC Nitroglycerin (Nitroglycerin 2% Oint) 0.5 inch Q6HR PRN TOPICAL CHEST PAIN; Start 09/24/17 at 22:15 Dextrose (D50w (Vial) Inj) 50 ml UNSCH PRN IV PUSH HYPOGLYCEMIA-SEE COMMENTS; Start 09/24/17 at 22:15 Glucagon (Glucagon Inj) 1 mg UNSCH PRN OTHER HYPOGLYCEMIA-SEE COMMENTS; Start 09/24/17 at 22:15 Insulin Aspart (NovoLOG SUPPLEMENTAL SCALE) 1 ACHS SLIDING SCALE SQ Last administered on 09/30/17at 09:17; Start 09/25/17 at 08:00 Sodium Chloride (NS Flush) 2 ml UNSCH PRN IV FLUSH FLUSH AFTER USING IV ACCESS Last administered on 09/30/17at 02:47; Start 09/24/17 at 22:15 Sodium Chloride (NS Flush) 2 ml BID IV FLUSH Last administered on 09/29/17at 09: 35; Start 09/25/17 at 09:00 Ondansetron HCl (Zofran Inj) 4 mg Q6H PRN IVP NAUSEA OR VOMITING; Start at 22:15 Acetaminophen (Tylenol) 650 mg Q6H PRN PO FEVER/PAIN SCALE 1 TO 2; Start at 22:15 Acetaminophen/ Hydrocodone Bitart (Reserve 5-325 Mg) 1 tab Q4H PRN PO PAIN SCALE 3 TO 5 Last administered on 09/29/17at 17:55; Start 09/24/17 at 22:15 Morphine Sulfate (Morphine Inj) 2 mg Q3H PRN IV PUSH Pain 6-10; Start 09/24/17 at 22:15 Senna/Docusate Sodium (Janett-Colace) 1 tab BID PO Last administered on 09/30/17at 09:15; Start 09/25/17 at 09:00 Magnesium Hydroxide (Milk Of Magnesia Liq) 30 ml Q12H PRN PO Mild constipation ; Start 09/24/17 at 22:15 Sennosides (Senokot) 17.2 mg Q12H PRN PO Moderate constipation; Start 09/24/17 at 22:15 Bisacodyl (Dulcolax Supp) 10 mg DAILY PRN RECTAL SEVERE CONSITIPATION/ IF NPO ; Start 09/24/17 at 22:15 Lactulose (Lactulose Liq) 30 ml DAILY PRN PO SEVERE CONSITIPATION/ IF PO; Start 09/24/17 at 22:15 Alprazolam (Xanax) 0.25 mg Q8H PRN PO ANXIETY; Start 09/25/17 at 01:15 Amiodarone HCl (Cordarone) 200 mg BID PO ; Start 09/25/17 at 09:00; Status Future Hold Calcium Acetate (Phoslo) 1,334 mg TID PO Last administered on 09/30/17at 09:15; Start 09/25/17 at 09:00 Carvedilol (Coreg) 25 mg BID PO ; Start 09/25/17 at 09:00; Stop 09/25/17 at 15:45 ; Status DC Clonidine (Catapres) 0.1 mg BID PO ; Start 09/25/17 at 09:00; Status Future Hold Gabapentin (Neurontin) 100 mg TID PO Last administered on 09/30/17at 09:15; Start 09/25/17 at 09:00 Hydralazine HCl (Apresoline) 50 mg TID PO ; Start 09/25/17 at 09:00; Status Future Hold Isosorbide Mononitrate (Imdur) 60 mg DAILY@07 PO ; Start 09/25/17 at 07:00; Status Future Hold Ticagrelor (Brilinta) 90 mg BID PO Last administered on 09/29/17at 09:34; Start 09/25/17 at 09:00; Stop 09/29/17 at 15:20; Status DC Sodium Chloride 500 ml @ 500 mls/hr BOLUS ONCE IV Last administered on at 02:48; Start 09/25/17 at 02:45; Stop 09/25/17 at 03:44; Status DC Dextrose/Sodium Chloride 500 ml @ 500 mls/hr BOLUS ONCE IV Last administered on 09/25/17at 04:14; Start 09/25/17 at 04:00; Stop 09/25/17 at 04:59; Status DC Nitroglycerin (Nitroglycerin 2% Oint) 1 inch Q6HR TOPICAL Last administered on 09/26/17at 17:53; Start 09/25/17 at 18:00; Stop 09/26/17 at 18:42; Status DC Carvedilol (Coreg) 25 mg Q12HR PO Last administered on 09/30/17at 09:16; Start at 21:00 Aspirin (Aspirin Chew) 81 mg DAILY PO Last administered on 09/30/17at 09:15; Start 09/25/17 at 15:30 Sodium Chloride 1,000 ml @ 0 mls/hr Q0M PRN OTHER For Prime & Rinse Back; Start 09/26/17 at 14:46 Heparin Sodium (Porcine) (Heparin Inj) 8,000 units UNSCH PRN IV FLUSH WITH DIALYSIS; Start 09/26/17 at 15:00 Sodium Chloride 1,000 ml @ 200 mls/hr Q5H PRN IV WITH DIALYSIS; Start 09/26/17 at 14:46 Sodium Chloride 1,000 ml @ 0 mls/hr Q0M PRN OTHER WITH DIALYSIS; Start 09/26/17 at 14:46 Mannitol (Mannitol Inj) 12.5 gm UNSCH PRN IV WITH DIALYSIS; Start 09/26/17 at 15 :00 Albumin Human 100 ml @ 60 mls/hr UNSCH PRN IV WITH DIALYSIS; Start 09/26/17 at 15:00 Sodium Chloride (NS Flush) 5 ml UNSCH PRN IV FLUSH WITH DIALYSIS; Start at 15:00 Heparin Sodium (Porcine) (Heparin Inj) UNSCH PRN .XX WITH DIALYSIS; Start 09/26 at 15:00 Gentamicin Sulfate (Gentamicin Inj) 20 mg UNSCH PRN OTHER WITH DIALYSIS; Start 09/26/17 at 15:00 Ondansetron HCl (Zofran Inj) 4 mg UNSCH PRN IV PUSH WITH DIALYSIS; Start at 15:00 Acetaminophen (Tylenol) 650 mg UNSCH PRN PO for headach, pain, temp > 101F; Start 09/26/17 at 15:00 Diphenhydramine HCl (Benadryl) 25 mg UNSCH PRN PO for hives/itching/anaphylaxis ; Start 09/26/17 at 15:00 Nitroglycerin (Nitrostat Sl) 0.4 mg UNSCH PRN SL CHEST PAIN; Start 09/26/17 at 15:00 Clonidine (Catapres) 0.1 mg UNSCH PRN PO for BP > 180/100 X 2 readings; Start 09/26/17 at 15:00 Epoetin Abraham (Epogen Inj) 10,000 units UNSCH PRN IV PUSH WITH DIALYSIS Last administered on 09/29/17at 16:28; Start 09/26/17 at 15:00 Gelatin (Gelfoam 12 Mm/7 Mm Top) 1 foam UNSCH PRN TOP SEE LABEL COMMENTS Last administered on 09/29/17at 16:27; Start 09/26/17 at 15:00 Heparin Sodium/ Sodium Chloride 2,000 ml @ As Directed STK-MED ONCE IV FLUSH Last administered on 09/29/17at 10:46; Start 09/29/17 at 10:46; Stop 09/29/17 at 10: 47; Status DC Verapamil HCl (Isoptin Inj) 5 mg STK-MED ONCE .ROUTE ; Start 09/29/17 at 10:46; Stop 09/29/17 at 10:47; Status DC Heparin Sodium (Porcine) (Heparin Inj) 10,000 units STK-MED ONCE .ROUTE ; Start 09/29/17 at 10:46; Stop 09/29/17 at 10:47; Status DC Nitroglycerin 5 ml @ As Directed STK-MED ONCE .ROUTE ; Start 09/29/17 at 10:46; Stop 09/29/17 at 10:47; Status DC Midazolam HCl (Versed Inj) 2 mg STK-MED ONCE .ROUTE Last administered on 11:06; Start 09/29/17 at 10:58; Stop 09/29/17 at 10:59; Status DC Fentanyl Citrate (fentaNYL INJ) 100 mcg STK-MED ONCE .ROUTE Last administered on 09/29/17 11:07; Start 09/29/17 at 10:58; Stop 09/29/17 at 10:59; Status DC Heparin Sodium (Porcine) (Heparin Inj) 5,000 units UNSCH PRN IV PUSH APTT LESS THAN 25; Start 09/29/17 at 17:45 Heparin Sodium (Porcine) (Heparin Inj) 2,500 units UNSCH PRN IV PUSH APTT 25 TO 39 Last administered on 09/30/17at 02:46; Start 09/29/17 at 17:45 Heparin Sodium/ Dextrose 250 ml @ 10 mls/hr TITRATE PRN IV Coagulation Management Last administered on 09/29/17at 17:50; Start 09/29/17 at 11:45 Iohexol (OMNIPAQUE 350 INJ (Assistant Gm Of Content & Delivery)) 50 ml STK-MED ONCE OTHER Last administered on 09/29/17 13:30; Start 09/29/17 at 13:30; Stop 09/29/17 at 13:31; Status DC Benzonatate (Tessalon) 200 mg TID PRN PO COUGH Last administered on 09/30/17at 02 :51; Start 09/29/17 at 19:00 Imaging Last Impressions Chest X-Ray 09/24/172031 Signed Impressions: Service Date/Time: Sunday, September 24, 2017 20:52 - CONCLUSION: No acute disease. Son Siu MD Objective Remarks GENERAL: Awake alert and oriented 3 talkative and cooperative --does not appear to be in any major distress SKIN: Warm and dry. HEAD: Atraumatic. Normocephalic. EYES: Pupils equal and round. No scleral icterus. No injection or drainage. Extraocular muscles intact ENT: No nasal bleeding or discharge. Mucous membranes pink and moist. Tongue is midline NECK: Trachea midline. No JVD. Supple CARDIOVASCULAR: Regular rate and rhythm. S1-S2 no S3 or S4 RESPIRATORY: No accessory muscle use. Clear to auscultation. Breath sounds equal bilaterally. GASTROINTESTINAL: Abdomen soft, non-tender, nondistended. Hepatic and splenic margins not palpable. Obese MUSCULOSKELETAL: Extremities without clubbing, cyanosis, or edema. No obvious deformities. Right upper extremity AV fistula with good thrill and bruit in the forearm NEUROLOGICAL: Awake and alert. No obvious cranial nerve deficits. Motor grossly within normal limits. Five out of 5 muscle strength in the arms and legs. Normal speech. PSYCHIATRIC: Appropriate mood and affect; insight and judgment normal. Procedures Hemodialysis 4-5 cardiac catheterization Post-cath, found to have restenosis of LM/LAD/LCx stent --cardio vascular surgery has been consulted DATE OF PROCEDURE: 09/29/2017. PROCEDURE: Left heart catheterization, coronary angiogram, moderate sedation 25 minutes, Vascade femoral closure. PREPROCEDURE DIAGNOSES: [id number] myocardial infarction, coronary artery disease. POSTPROCEDURE DIAGNOSIS: Coronary artery disease, restenosis of left main/left anterior descending/left circumflex stents. MEDICATIONS: Versed 0.5 mg, fentanyl 25 mcg. CONTRAST USED: 35 mL FLUOROSCOPY: 1.2 minutes. MODERATE SEDATION: 25 minutes. ESTIMATED BLOOD LOSS: 10 mL. PROCEDURAL SUMMARY: Dandy Singleton is a pleasant 57-year-old male whom I see in the office and presented to [facility] due to chest pain. He was found to have an elevated troponin and recommended cardiac catheterization. Risks, benefits and alternatives were explained to him and he consented to such. He was brought to the lab and prepped in the usual sterile fashion. Left femoral artery was accessed using modified Seldinger technique and placement of a 5-Czech sheath. This was easily aspirated and flushed. A JR4 was advanced over a J-wire to the ascending aorta and across the aortic valve for measurement of left ventricular pressure. This was pulled back across the aortic valve, showing no significant gradient of aortic stenosis. The JR4 was used for selective angiography of the right coronary artery system. This was then exchanged for a JL4, which was used for selective angiography of the left coronary artery system. The JL4 was removed over a J-wire. Vascade femoral closure device was used for the arteriotomy. 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 FINDINGS: Left main stent patent with 70% in-stent restenosis. It bifurcates into an LAD and circumflex. LAD stent and the stent from the left main into the LAD has a 90% in-stent restenosis. Mid to distal stent is patent. Distally, the vessel has diffuse 30% disease. Left circumflex stent from left main into left circumflex has a 95% restenosis. Stent in the mid portion is patent with no significant disease. It gives off 2 obtuse marginals with no significant disease. RCA is a normal size vessel with 30% disease throughout the proximal portion. Distally, the vessel is diffusely diseased of 80% to 90% throughout with subtotal occlusions. LVEDP 30. IMPRESSION: 1. Non-ST elevation myocardial infarction. 2. Coronary artery disease with complex percutaneous coronary intervention of left main, left anterior descending and left circumflex previously. RECOMMENDATIONS: 1. Mr. Singleton presented again with an elevated troponin and once again was found to have restenosis of his complex PCI. 2. As the last time I attempted to use laser arthrectomy and cutting balloons and still had restenosis, as well as now the vessels have increased in size distally due to better flow, I think that he should undergo consideration of coronary artery bypass grafting. 3. I have discussed this with CT surgery and they will see him in consultation. 4. Due to the significance of his disease, he will be placed on a heparin drip 5 hours after sheath was removed. 5. We will plan on rechecking an echo to look at his overall left ventricular function in anticipation of coronary artery bypass grafting. 6. His Brilinta will be held for anticipated coronary artery bypass grafting. 7. If at any time he has significant chest pain or becomes hemodynamically or electrically unstable, he will be taken back to the labor employment associate emergently for placement of intraaortic balloon pump. 8. We will plan on having him undergo hemodialysis after cardiac catheterization. Thank you for allowing me to see Dandy Singleton. If there are any questions, please do not hesitate to call. Medications and IVs Current Medications Sodium Chloride (NS Flush) 2 ml UNSCH PRN IVF FLUSH AFTER USING IV ACCESS; Start 09/24/17 at 20:45; Stop 09/24/17 at 22:18; Status DC Nitroglycerin (Nitroglycerin 2% Oint) 0.5 inch Q6HR PRN TOPICAL CHEST PAIN; Start 09/24/17 at 22:15 Dextrose (D50w (Vial) Inj) 50 ml UNSCH PRN IV PUSH HYPOGLYCEMIA-SEE COMMENTS; Start 09/24/17 at 22:15 Glucagon (Glucagon Inj) 1 mg UNSCH PRN OTHER HYPOGLYCEMIA-SEE COMMENTS; Start 09/24/17 at 22:15 Insulin Aspart (NovoLOG SUPPLEMENTAL SCALE) 1 ACHS SLIDING SCALE SQ Last administered on 09/30/17at 09:17; Start 09/25/17 at 08:00 Sodium Chloride (NS Flush) 2 ml UNSCH PRN IV FLUSH FLUSH AFTER USING IV ACCESS Last administered on 09/30/17at 02:47; Start 09/24/17 at 22:15 Sodium Chloride (NS Flush) 2 ml BID IV FLUSH Last administered on 09/29/17at 09: 35; Start 09/25/17 at 09:00 Ondansetron HCl (Zofran Inj) 4 mg Q6H PRN IVP NAUSEA OR VOMITING; Start at 22:15 Acetaminophen (Tylenol) 650 mg Q6H PRN PO FEVER/PAIN SCALE 1 TO 2; Start at 22:15 Acetaminophen/ Hydrocodone Bitart (Reserve 5-325 Mg) 1 tab Q4H PRN PO PAIN SCALE 3 TO 5 Last administered on 09/29/17at 17:55; Start 09/24/17 at 22:15 Morphine Sulfate (Morphine Inj) 2 mg Q3H PRN IV PUSH Pain 6-10; Start 09/24/17 at 22:15 Senna/Docusate Sodium (Janett-Colace) 1 tab BID PO Last administered on 09/30/17at 09:15; Start 09/25/17 at 09:00 Magnesium Hydroxide (Milk Of Magnesia Liq) 30 ml Q12H PRN PO Mild constipation ; Start 09/24/17 at 22:15 Sennosides (Senokot) 17.2 mg Q12H PRN PO Moderate constipation; Start 09/24/17 at 22:15 Bisacodyl (Dulcolax Supp) 10 mg DAILY PRN RECTAL SEVERE CONSITIPATION/ IF NPO ; Start 09/24/17 at 22:15 Lactulose (Lactulose Liq) 30 ml DAILY PRN PO SEVERE CONSITIPATION/ IF PO; Start 09/24/17 at 22:15 Alprazolam (Xanax) 0.25 mg Q8H PRN PO ANXIETY; Start 09/25/17 at 01:15 Amiodarone HCl (Cordarone) 200 mg BID PO ; Start 09/25/17 at 09:00; Status Future Hold Calcium Acetate (Phoslo) 1,334 mg TID PO Last administered on 09/30/17at 09:15; Start 09/25/17 at 09:00 Carvedilol (Coreg) 25 mg BID PO ; Start 09/25/17 at 09:00; Stop 09/25/17 at 15:45 ; Status DC Clonidine (Catapres) 0.1 mg BID PO ; Start 09/25/17 at 09:00; Status Future Hold Gabapentin (Neurontin) 100 mg TID PO Last administered on 09/30/17at 09:15; Start 09/25/17 at 09:00 Hydralazine HCl (Apresoline) 50 mg TID PO ; Start 09/25/17 at 09:00; Status Future Hold Isosorbide Mononitrate (Imdur) 60 mg DAILY@07 PO ; Start 09/25/17 at 07:00; Status Future Hold Ticagrelor (Brilinta) 90 mg BID PO Last administered on 09/29/17at 09:34; Start 09/25/17 at 09:00; Stop 09/29/17 at 15:20; Status DC Sodium Chloride 500 ml @ 500 mls/hr BOLUS ONCE IV Last administered on at 02:48; Start 09/25/17 at 02:45; Stop 09/25/17 at 03:44; Status DC Dextrose/Sodium Chloride 500 ml @ 500 mls/hr BOLUS ONCE IV Last administered on 09/25/17at 04:14; Start 09/25/17 at 04:00; Stop 09/25/17 at 04:59; Status DC Nitroglycerin (Nitroglycerin 2% Oint) 1 inch Q6HR TOPICAL Last administered on 09/26/17at 17:53; Start 09/25/17 at 18:00; Stop 09/26/17 at 18:42; Status DC Carvedilol (Coreg) 25 mg Q12HR PO Last administered on 09/30/17at 09:16; Start at 21:00 Aspirin (Aspirin Chew) 81 mg DAILY PO Last administered on 09/30/17at 09:15; Start 09/25/17 at 15:30 Sodium Chloride 1,000 ml @ 0 mls/hr Q0M PRN OTHER For Prime & Rinse Back; Start 09/26/17 at 14:46 Heparin Sodium (Porcine) (Heparin Inj) 8,000 units UNSCH PRN IV FLUSH WITH DIALYSIS; Start 09/26/17 at 15:00 Sodium Chloride 1,000 ml @ 200 mls/hr Q5H PRN IV WITH DIALYSIS; Start 09/26/17 at 14:46 Sodium Chloride 1,000 ml @ 0 mls/hr Q0M PRN OTHER WITH DIALYSIS; Start 09/26/17 at 14:46 Mannitol (Mannitol Inj) 12.5 gm UNSCH PRN IV WITH DIALYSIS; Start 09/26/17 at 15 :00 Albumin Human 100 ml @ 60 mls/hr UNSCH PRN IV WITH DIALYSIS; Start 09/26/17 at 15:00 Sodium Chloride (NS Flush) 5 ml UNSCH PRN IV FLUSH WITH DIALYSIS; Start at 15:00 Heparin Sodium (Porcine) (Heparin Inj) UNSCH PRN .XX WITH DIALYSIS; Start 09/26 at 15:00 Gentamicin Sulfate (Gentamicin Inj) 20 mg UNSCH PRN OTHER WITH DIALYSIS; Start 09/26/17 at 15:00 Ondansetron HCl (Zofran Inj) 4 mg UNSCH PRN IV PUSH WITH DIALYSIS; Start at 15:00 Acetaminophen (Tylenol) 650 mg UNSCH PRN PO for headach, pain, temp > 101F; Start 09/26/17 at 15:00 Diphenhydramine HCl (Benadryl) 25 mg UNSCH PRN PO for hives/itching/anaphylaxis ; Start 09/26/17 at 15:00 Nitroglycerin (Nitrostat Sl) 0.4 mg UNSCH PRN SL CHEST PAIN; Start 09/26/17 at 15:00 Clonidine (Catapres) 0.1 mg UNSCH PRN PO for BP > 180/100 X 2 readings; Start 09/26/17 at 15:00 Epoetin Abraham (Epogen Inj) 10,000 units UNSCH PRN IV PUSH WITH DIALYSIS Last administered on 09/29/17 16:28; Start 09/26/17 at 15:00 Gelatin (Gelfoam 12 Mm/7 Mm Top) 1 foam UNSCH PRN TOP SEE LABEL COMMENTS Last administered on 09/29/17 16:27; Start 09/26/17 at 15:00 Heparin Sodium/ Sodium Chloride 2,000 ml @ As Directed STK-MED ONCE IV FLUSH Last administered on 09/29/17at 10:46; Start 09/29/17 at 10:46; Stop 09/29/17 at 10: 47; Status DC Verapamil HCl (Isoptin Inj) 5 mg STK-MED ONCE .ROUTE ; Start 09/29/17 at 10:46; Stop 09/29/17 at 10:47; Status DC Heparin Sodium (Porcine) (Heparin Inj) 10,000 units STK-MED ONCE .ROUTE ; Start 09/29/17 at 10:46; Stop 09/29/17 at 10:47; Status DC Nitroglycerin 5 ml @ As Directed STK-MED ONCE .ROUTE ; Start 09/29/17 at 10:46; Stop 09/29/17 at 10:47; Status DC Midazolam HCl (Versed Inj) 2 mg STK-MED ONCE .ROUTE Last administered on at 11:06; Start 09/29/17 at 10:58; Stop 09/29/17 at 10:59; Status DC Fentanyl Citrate (fentaNYL INJ) 100 mcg STK-MED ONCE .ROUTE Last administered on 09/29/17 11:07; Start 09/29/17 at 10:58; Stop 09/29/17 at 10:59; Status DC Heparin Sodium (Porcine) (Heparin Inj) 5,000 units UNSCH PRN IV PUSH APTT LESS THAN 25; Start 09/29/17 at 17:45 Heparin Sodium (Porcine) (Heparin Inj) 2,500 units UNSCH PRN IV PUSH APTT 25 TO 39 Last administered on 09/30/17at 02:46; Start 09/29/17 at 17:45 Heparin Sodium/ Dextrose 250 ml @ 10 mls/hr TITRATE PRN IV Coagulation Management Last administered on 09/29/17at 17:50; Start 09/29/17 at 11:45 Iohexol (OMNIPAQUE 350 INJ (Assistant Gm Of Content & Delivery)) 50 ml STK-MED ONCE OTHER Last administered on 09/29/17at 13:30; Start 09/29/17 at 13:30; Stop 09/29/17 at 13:31; Status DC Benzonatate (Tessalon) 200 mg TID PRN PO COUGH Last administered on 09/30/17at 02 :51; Start 09/29/17 at 19:00 A/P Problem List: (1) NSTEMI (non-ST elevation myocardial infarction) ICD Code: I21.4 - Non-ST elevation (NSTEMI) myocardial infarction Status: Acute (2) Ischemic cardiomyopathy ICD Code: I25.5 - Ischemic cardiomyopathy Status: Chronic (3) ESRD (end stage renal disease) ICD Code: N18.6 - End stage renal disease Status: Acute (4) DM (diabetes mellitus) ICD Code: E11.9 - Type 2 diabetes mellitus without complications Assessment and Plan 57-year-old male with: 1. NSTEMI: c/o chest pain, recent NSTEMI s/p PCI, now w/ Trop 0.74, - Cardiology following. Concerned about restonosis. Cardiology planning for repeat heart cath depending on follow up INR levels. - Continue Aspirin, Brilinta, bb Had cardiac catheterization September 29 post-cath, found to have restenosis of LM/ LAD/LCx stent On heparin drip currently 2. Ischemic Cardiomyopathy: Echo 08/03/17 w/ EF 40-45%, CXR w/ no acute findings. Resume home medications. Monitor I/O. 3. DM: Sliding scale w/ Accu-Cheks. 4. ESRD on HD: //Tue. Nephrology, Dr. Corona following. Obesity weight loss recommended 5. DVT Prophylaxis: On Coumadin/Brilinta. Follow INR in am. Coumadin is on hold at this time on heparin drip currently A.m. labs Discharge Planning Pending cardiac and renal clearance Jason Craig DO Sep 30, 2017 11:03
--- NOTE | 2017-09-30 11:03 | HHI.NPPN ---
Subjective General Problems: Anemia, Edema, Heart Disease, Hypertension Renal Failure: End Stage Renal Disease History of Present Illness 57-year-old male with past medical history of ischemic heart disease, hypertension, cardiomyopathy, end-stage renal disease, on hemodialysis 3 times per week, diabetes mellitus, came to the hospital with a complaint of recurrent chest pain. I was called to see the patient because of management of dialysis. The patient has a known history of ischemic heart disease and congestive heart failure. Additional Remarks Patient sitting up in chair with no complaints. (Racquel Hooks) Review of Systems General Constitutional: Fatigue (Racquel Hooks) Respiratory Respiratory Remarks No SOB (Racquel Hooks) Cardiovascular Cardiac: AUGUSTINE Cardiac Remarks denies CP (Racquel Hooks) Gastrointestinal GI Remarks Denies any abdominal pain (Racquel Hooks) Objective Data Data Vital Signs Date Time Temp Pulse Resp B/P (MAP) Pulse Ox O2 Delivery O2 Flow Rate FiO2 09/30/17 09:00 62 09/30/17 08:00 64 09/30/17 07:15 98.5 64 18 111/71 (84) 98 09/30/17 07:15 66 09/30/17 06:00 64 09/30/17 05:00 66 09/30/17 04:00 67 09/30/17 04:00 98.1 69 20 111/69 (83) 97 09/30/17 03:00 68 09/30/17 02:00 64 09/30/17 01:00 66 09/30/17 00:00 98.2 66 20 100/70 (80) 93 09/30/17 00:00 67 09/29/17 23:00 68 09/29/17 22:00 66 09/29/17 21:00 66 09/29/17 20:00 68 09/29/17 20:00 98.2 69 20 109/70 (83) 92 09/29/17 19:00 68 09/29/17 18:00 66 09/29/17 17:00 64 09/29/17 16:45 60 18 132/74 (93) 94 09/29/17 16:00 68 09/29/17 15:00 68 09/29/17 14:00 60 09/29/17 13:00 60 09/29/17 12:10 55 09/29/17 12:00 58 09/29/17 12:00 59 20 128/77 (94) 98 (Racquel Hooks) -: 09/30/1718 09/30/1718 Imaging Last Impressions Chest X-Ray 09/24/172031 Signed Impressions: Service Date/Time: Sunday, September 24, 2017 20:52 - CONCLUSION: No acute disease. Son Siu MD (Racquel Hooks) Physical Exam General Appearance: No Acute Distress, Comfortable (Racquel Hooks) Eyes Eye Exam: Pupils Equal (Racquel Hooks) Throat Throat Exam: Oral Mucosa [place] & Moist (Racquel Hooks) Neck Neck Exam: Neck Supple (Racquel Hooks) Pulmonary Resp Exam: Breath Sounds Equal, No Distress, Decreased Bases (Racquel Hooks) Cardiology CV Exam: Regular, Normal Sinus Rhythm (Racquel Hooks) Gastrointestinal/Abdomen GI Exam: Soft, Non-Tender, Bowel Sounds Present (Racquel Hooks) Integumentary Skin Exam: Clear, Warm (Racquel Hooks) Extremeties Extremities Exam: Trace Edema (Racquel Hooks) Neurologic Neuro Exam: Alert, Awake, Oriented (Racquel Hooks) Psychiatric Psych Exam: Appropriate Responses (Racquel Hooks) Assessment/Plan Discussed Condition With: Daughter Assessment Summary: Anemia of CKD, CHF, Hypertension, End Stage Renal Disease Problem List: (1) ESRD on hemodialysis ICD Codes: N18.6 - End stage renal disease; Z99.2 - Dependence on renal dialysis Plan: ESRD HD on //TUE Patient has significant IHD and has low EF. S/P heart cath found to have restenosis of his complex PCI cardiac surgery consulted Plan Continue phoslo HD yesterday with UF of 3 liters Dialysis planned for tomorrow. (2) DM (diabetes mellitus) ICD Codes: E11.9 - Type 2 diabetes mellitus without complications (3) Ischemic cardiomyopathy ICD Codes: I25.5 - Ischemic cardiomyopathy Status: Chronic (4) NSTEMI (non-ST elevation myocardial infarction) ICD Codes: I21.4 - Non-ST elevation (NSTEMI) myocardial infarction Status: Acute (5) Hyperlipidemia ICD Codes: E78.5 - Hyperlipidemia, unspecified Status: Chronic (6) Anemia ICD Codes: D64.9 - Anemia, unspecified Status: Chronic (7) HTN (hypertension) ICD Codes: I10 - Essential (primary) hypertension Status: Chronic (8) Multi-vessel coronary artery stenosis ICD Codes: I25.10 - Atherosclerotic heart disease of [place] coronary artery without angina pectoris Plan (Racquel Hooks) Problem List: (1) ESRD on hemodialysis ICD Codes: N18.6 - End stage renal disease; Z99.2 - Dependence on renal dialysis Plan: ESRD HD on //TUE Patient has significant IHD and has low EF. S/P heart cath found to have restenosis of his complex PCI cardiac surgery consulted Plan Continue phoslo HD yesterday with UF of 3 liters Dialysis planned for tomorrow. Patient seen and examined, agree with above. HD will be in AM, awaiting CV Surgery. (2) DM (diabetes mellitus) ICD Codes: E11.9 - Type 2 diabetes mellitus without complications (3) Ischemic cardiomyopathy ICD Codes: I25.5 - Ischemic cardiomyopathy Status: Chronic (4) NSTEMI (non-ST elevation myocardial infarction) ICD Codes: I21.4 - Non-ST elevation (NSTEMI) myocardial infarction Status: Acute (5) Hyperlipidemia ICD Codes: E78.5 - Hyperlipidemia, unspecified Status: Chronic (6) Anemia ICD Codes: D64.9 - Anemia, unspecified Status: Chronic (7) HTN (hypertension) ICD Codes: I10 - Essential (primary) hypertension Status: Chronic (8) Multi-vessel coronary artery stenosis ICD Codes: I25.10 - Atherosclerotic heart disease of [place] coronary artery without angina pectoris (Jeana Corona MD) Racquel Hooks Sep 30, 2017 11:03 Jeana Corona MD Sep 30, 2017 17:41
--- NOTE | 2017-09-30 12:59 | PD.CARD.PN ---
Subjective Subjective Remarks No events overnight Post-cath, found to have restenosis of LM/LAD/LCx stent Objective Medications Current Medications Medications (Trade) Dose Ordered Sig/Taj Route Start Time Stop Time Status Last Admin (Nitroglycerin 2% Oint) 0.5 inch Q6HR PRN TOPICAL 09/24/17 22:15 (D50w (Vial) Inj) 50 ml UNSCH PRN IV PUSH 09/24/17 22:15 (Glucagon Inj) 1 mg UNSCH PRN OTHER 09/24/17 22:15 (NovoLOG SUPPLEMENTAL SCALE) 1 ACHS SLIDING SCALE SQ 09/25/17 08:00 09/30/17 09:17 (NS Flush) 2 ml UNSCH PRN IV FLUSH 09/24/17 22:15 09/30/17 02:47 (NS Flush) 2 ml BID IV FLUSH 09/25/17 09:00 09/29/17 09:35 (Zofran Inj) 4 mg Q6H PRN IVP 09/24/17 22:15 (Tylenol) 650 mg Q6H PRN PO 09/24/17 22:15 (Warne 5-325 Mg) 1 tab Q4H PRN PO 09/24/17 22:15 09/29/17 17:55 (Morphine Inj) 2 mg Q3H PRN IV PUSH 09/24/17 22:15 (Janett-Colace) 1 tab BID PO 09/25/17 09:00 09/30/17 09:15 (Milk Of Magnesia Liq) 30 ml Q12H PRN PO 09/24/17 22:15 (Senokot) 17.2 mg Q12H PRN PO 09/24/17 22:15 (Dulcolax Supp) 10 mg DAILY PRN RECTAL 09/24/17 22:15 (Lactulose Liq) 30 ml DAILY PRN PO 09/24/17 22:15 (Xanax) 0.25 mg Q8H PRN PO 09/25/17 01:15 (Cordarone) 200 mg BID PO 09/25/17 09:00 Future Hold (Phoslo) 1,334 mg TID PO 09/25/17 09:00 09/30/17 09:15 (Catapres) 0.1 mg BID PO 09/25/17 09:00 Future Hold (Neurontin) 100 mg TID PO 09/25/17 09:00 09/30/17 09:15 (Apresoline) 50 mg TID PO 09/25/17 09:00 Future Hold (Imdur) 60 mg DAILY@07 PO 09/25/17 07:00 Future Hold (Coreg) 25 mg Q12HR PO 09/25/17 21:00 09/30/17 09:16 (Aspirin Chew) 81 mg DAILY PO 09/25/17 15:30 09/30/17 09:15 Sodium Chloride 1,000 ml @ 0 mls/hr Q0M PRN OTHER 09/26/17 14:46 (Heparin Inj) 8,000 units UNSCH PRN IV FLUSH 09/26/17 15:00 Sodium Chloride 1,000 ml @ 200 mls/hr Q5H PRN IV 09/26/17 14:46 Sodium Chloride 1,000 ml @ 0 mls/hr Q0M PRN OTHER 09/26/17 14:46 (Mannitol Inj) 12.5 gm UNSCH PRN IV 09/26/17 15:00 Albumin Human 100 ml @ 60 mls/hr UNSCH PRN IV 09/26/17 15:00 (NS Flush) 5 ml UNSCH PRN IV FLUSH 09/26/17 15:00 (Heparin Inj) UNSCH PRN .XX 09/26/17 15:00 (Gentamicin Inj) 20 mg UNSCH PRN OTHER 09/26/17 15:00 (Zofran Inj) 4 mg UNSCH PRN IV PUSH 09/26/17 15:00 (Tylenol) 650 mg UNSCH PRN PO 09/26/17 15:00 (Benadryl) 25 mg UNSCH PRN PO 09/26/17 15:00 (Nitrostat Sl) 0.4 mg UNSCH PRN SL 09/26/17 15:00 (Catapres) 0.1 mg UNSCH PRN PO 09/26/17 15:00 (Epogen Inj) 10,000 units UNSCH PRN IV PUSH 09/26/17 15:00 09/29/17 16:28 (Gelfoam 12 Mm/7 Mm Top) 1 foam UNSCH PRN TOP 09/26/17 15:00 09/29/17 16:27 (Heparin Inj) 5,000 units UNSCH PRN IV PUSH 09/29/17 17:45 (Heparin Inj) 2,500 units UNSCH PRN IV PUSH 09/29/17 17:45 09/30/17 02:46 Heparin Sodium/ Dextrose 250 ml @ 10 mls/hr TITRATE PRN IV 09/29/17 11:45 09/29/17 17:50 (Tessalon) 200 mg TID PRN PO 09/29/17 19:00 09/30/17 02:51 Vital Signs / I&O Vital Signs Date Time Temp Pulse Resp B/P (MAP) Pulse Ox O2 Delivery O2 Flow Rate FiO2 09/30/17 12:00 58 09/30/17 11:44 98.5 64 18 111/71 (84) 98 09/30/17 11:00 59 09/30/17 10:00 64 09/30/17 09:48 94 21 09/30/17 09:00 62 09/30/17 08:00 64 09/30/17 07:15 98.5 64 18 111/71 (84) 98 09/30/17 07:15 66 09/30/17 06:00 64 09/30/17 05:00 66 09/30/17 04:00 67 09/30/17 04:00 98.1 69 20 111/69 (83) 97 09/30/17 03:00 68 09/30/17 02:00 64 09/30/17 01:00 66 09/30/17 00:00 98.2 66 20 100/70 (80) 93 09/30/17 00:00 67 09/29/17 23:00 68 09/29/17 22:00 66 09/29/17 21:00 66 09/29/17 20:00 68 09/29/17 20:00 98.2 69 20 109/70 (83) 92 09/29/17 19:00 68 09/29/17 18:00 66 09/29/17 17:00 64 09/29/17 16:45 60 18 132/74 (93) 94 09/29/17 16:00 68 09/29/17 15:00 68 09/29/17 14:00 60 09/29/17 13:00 60 I/O 09/29/17 09/29/17 09/29/17 09/30/17 09/30/17 09/30/17 06:59 14:59 22:59 06:59 14:59 22:59 Intake Total 600 ml 250 ml 240 ml Output Total 200 ml 3000 ml 400 ml Balance 400 ml -2750 ml -160 ml Intake Oral 600 ml 240 ml 240 ml IV Total 10 ml Output Urine Total 200 ml 0 ml 400 ml Hemodialysis 3000 ml Physical Exam GENERAL: NAD, AAOx3 SKIN: Warm and dry. HEAD: Atraumatic. Normocephalic. EYES: Pupils equal and round. No scleral icterus. No injection or drainage. ENT: No nasal bleeding or discharge. Mucous membranes pink and moist. NECK: Trachea midline. No JVD. CARDIOVASCULAR: Regular rate and rhythm. RESPIRATORY: No accessory muscle use. Clear to auscultation. Breath sounds equal bilaterally. GASTROINTESTINAL: Abdomen soft, non-tender, nondistended. Hepatic and splenic margins not palpable. MUSCULOSKELETAL: Extremities without clubbing, cyanosis, or edema. No obvious deformities. Right femoral no hematoma NEUROLOGICAL: Awake and alert. No obvious cranial nerve deficits. Motor grossly within normal limits. Five out of 5 muscle strength in the arms and legs. Normal speech. PSYCHIATRIC: Appropriate mood and affect; insight and judgment normal. Laboratory Laboratory Tests Test 09/30/17 00:02 09/30/17 06:18 Activated Partial Thromboplast Time 35.3 SEC 40.9 SEC White Blood Count 7.6 TH/MM3 Red Blood Count 3.22 MIL/MM3 Hemoglobin 10.4 GM/DL Hematocrit 31.3 % Mean Corpuscular Volume 97.3 FL Mean Corpuscular Hemoglobin 32.3 PG Mean Corpuscular Hemoglobin Concent 33.1 % Red Cell Distribution Width 17.7 % Platelet Count 142 TH/MM3 Mean Platelet Volume 9.5 FL Neutrophils (%) (Auto) 82.9 % Lymphocytes (%) (Auto) 8.0 % Monocytes (%) (Auto) 8.2 % Eosinophils (%) (Auto) 0.2 % Basophils (%) (Auto) 0.7 % Neutrophils # (Auto) 6.3 TH/MM3 Lymphocytes # (Auto) 0.6 TH/MM3 Monocytes # (Auto) 0.6 TH/MM3 Eosinophils # (Auto) 0.0 TH/MM3 Basophils # (Auto) 0.1 TH/MM3 CBC Comment DIFF FINAL Differential Comment Prothrombin Time 18.2 SEC Prothromb Time International Ratio 1.8 RATIO Blood Urea Nitrogen 69 MG/DL Creatinine 10.33 MG/DL Random Glucose 272 MG/DL Total Protein 6.6 GM/DL Albumin 3.0 GM/DL Calcium Level 8.7 MG/DL Phosphorus Level 4.9 MG/DL Magnesium Level 2.4 MG/DL Alkaline Phosphatase 122 U/L Aspartate Amino Transf (AST/SGOT) 31 U/L Alanine Aminotransferase (ALT/SGPT) 45 U/L Total Bilirubin 0.7 MG/DL Sodium Level 134 MEQ/L Potassium Level 5.2 MEQ/L Chloride Level 95 MEQ/L Carbon Dioxide Level 27.6 MEQ/L Anion Gap 11 MEQ/L Estimat Glomerular Filtration Rate 5 ML/MIN Assessment and Plan Problem List: (1) Multi-vessel coronary artery stenosis ICD Codes: I25.10 - Atherosclerotic heart disease of [place] coronary artery without angina pectoris (2) NSTEMI (non-ST elevation myocardial infarction) ICD Codes: I21.4 - Non-ST elevation (NSTEMI) myocardial infarction Status: Acute (3) Ischemic cardiomyopathy ICD Codes: I25.5 - Ischemic cardiomyopathy Status: Chronic (4) ESRD (end stage renal disease) ICD Codes: N18.6 - End stage renal disease Status: Acute (5) DM (diabetes mellitus) ICD Codes: E11.9 - Type 2 diabetes mellitus without complications (6) Hyperlipidemia ICD Codes: E78.5 - Hyperlipidemia, unspecified Status: Chronic (7) HTN (hypertension) ICD Codes: I10 - Essential (primary) hypertension Status: Chronic (8) ESRD on hemodialysis ICD Codes: N18.6 - End stage renal disease; Z99.2 - Dependence on renal dialysis Assessment and Plan 1) Elevated troponin/CAD Restenosis of LM/LAD/LCx stent CT surgery evaluation as targets are now better Plan for next week Repeat 2D echo Heparin drip 2) ESRD on HD 3) If chest pain unrelieved by meds or he becomes hemodynamically/electrically unstable, may need IABP over the weekend For now, con't on heparin drip 4) Brilinta stopped for possible CABG José Antonio May DO Sep 30, 2017 12:59
[2017-09-30] MEDS: ACETAMINOPHEN/HYDROcodone 325 MG/5 MG TAB PO PRN (13:21)
--- NOTE | 2017-09-30 13:23 | ECHRPT ---
Indication: CAD CONCLUSIONS The left ventricular systolic function is low normal with an estimated ejection fraction in the rang e of 50- 55%. Normal left ventricular size. Mild concentric left ventricular hypertrophy. No regional wall motion abnormalities are present. Mild mitral valve regurgitation. Aortic valve sclerosis is present. Trace aortic valve regurgitation. Trivial pulmonary valve regurgitation. BP: / HR: Rhythm: Sinus MEASUREMENTS (Male / Female) Normal Values Technical Quality:Good 2D ECHO LV Diastolic Diameter PLAX 6.1 cm 4.2 - 5.9 / 3.9 - 5.3 cm LV Systolic Diameter PLAX 5.0 cm IVS Diastolic Thickness 1.2 cm 0.6 - 1.0 / 0.6 - 0.9 cm LVPW Diastolic Thickness 1.3 cm 0.6 - 1.0 / 0.6 - 0.9 cm LV Relative Wall Thickness 0.4 RV Internal Dim ED PLAX 3.4 cm LVOT Diameter 2.0 cm LV Ejection Fraction MOD 4C 43.8 % LV Ejection Fraction 4C AL 44.6 % M-MODE LV Diastolic Diameter MM 7.6 cm 4.2 - 5.9 / 3.9 - 5.3 cm LV Systolic Diameter MM 6.1 cm LV Ejection Fraction MM Teich 39.4 % IVS Diastolic Thickness MM 1.3 cm 0.6 - 1.0 / 0.6 - 0.9 cm LVPW Diastolic Thickness MM 1.2 cm 0.6 - 1.0 / 0.6 - 0.9 cm LV Relative Wall Thickness MM 0.3 0.24 - 0.42 / 0.22 - 0.42 LV Mass Index MM 221.2 g/m 49 - 115 / 43 - 95 g/m Aortic Root Diameter MM 2.1 cm LA Systolic Diameter MM 3.7 cm LA Ao Ratio MM 1.8 AV Cusp Separation MM 1.6 cm DOPPLER AV Peak Velocity 155.0 cm/s AV Peak Gradient 9.6 mmHg AI Peak Velocity 206.0 cm/s AI Peak Gradient 17.0 mmHg AI Pressure Half Time 1008.0 ms LVOT Peak Velocity 78.5 cm/s LVOT Peak Gradient 2.5 mmHg AV Area Cont Eq pk 1.6 cm MV Peak Velocity 124.0 cm/s MV Peak Gradient 6.2 mmHg MV Mean Velocity 60.6 cm/s MV Mean Gradient 2.0 mmHg MV Area PHT 5.8 cm Mitral E Point Velocity 113.0 cm/s Mitral A Point Velocity 54.3 cm/s Mitral E to A Ratio 2.1 LV E' Lateral Velocity 4.1 cm/s Mitral E to LV E' Lateral Ratio 27.4 LV E' Septal Velocity 2.7 cm/s Mitral E to LV E' Septal Ratio 41.4 TR Peak Velocity 293.0 cm/s TR Peak Gradient 34.3 mmHg Right Atrial Pressure 10.0 mmHg Pulmonary Artery Systolic Pressu 44.3 mmHg Right Ventricular Systolic Press 44.3 mmHg PV Peak Velocity 77.4 cm/s PV Peak Gradient 2.4 mmHg FINDINGS LEFT VENTRICLE The left ventricular systolic function is low normal with an estimated ejection fraction in the rang e of 50- 55%. Normal left ventricular size. Mild concentric left ventricular hypertrophy. No regional wall motion abnormalities are present. RIGHT VENTRICLE Normal right ventricular size and systolic function. LEFT ATRIUM The left atrial size is normal. RIGHT ATRIUM The right atrial size is normal. ATRIAL SEPTUM Normal atrial septal thickness without atrial level shunting by limited color doppler interrogation. AORTA The aortic root and proximal ascending aorta are normal in size on limited imaging. MITRAL VALVE Structurally normal mitral valve. Mild mitral valve regurgitation. AORTIC VALVE Trileaflet aortic valve. Aortic valve sclerosis is present. Trace aortic valve regurgitation. TRICUSPID VALVE Structurally normal tricuspid valve. No tricuspid valve stenosis or regurgitation. PULMONARY VALVE Trivial pulmonary valve regurgitation. VESSELS The inferior vena cava is normal in size. PERICARDIUM No pericardial effusion. Glenroy Camargo MD, FACC (Electronically Signed) Final Date:30 September 2017 13:22
[2017-09-30] MEDS ORDERED: METOPROLOL TARTRATE 25 MG TAB PO SCH (14:30)
[2017-09-30] MEDS ORDERED: SODIUM CHLORIDE 0.9% FLUSH 10 ML FLUSH IV FLUSH PRN (14:30)
[2017-09-30] MEDS ORDERED: DEXTROSE 50% IN WATER 50 ML VIAL(D50) IV PUSH PRN (14:30)
[2017-09-30] MEDS ORDERED: CEFAZOLIN INJ 500 MG in SODIUM CHLORIDE 0.9% IRR BTL 500 ML IRRIGATION SCH (14:30)
[2017-09-30] MEDS ORDERED: INSULIN REGULAR (IV INFUSION) 100 UNITS in SODIUM CHLORIDE 0.9% INJ 99 ML IV PRN (14:30)
[2017-09-30] MEDS ORDERED: CHLORHEXIDINE GLUCONATE 4% SOLN 120 ML BTL TOPICAL SCH (14:30)
[2017-09-30] MEDS ORDERED: PAPAVERINE INJ 60 MG, NITROGLYCERIN INJ 100 MCG, VERAPAMIL INJ 100 MG in SODIUM CHLORID... IRRIGATION SCH (14:30)
--- NOTE | 2017-09-30 14:46 | PD.CAR.PN ---
CVT Progress Note Subjective/Hospital Course: pt seen and evaluated scheduled for CABG 10/05/17 sts data discussed with pt RISK SCORES About the STS Risk Calculator Procedure: CAB Only Risk of Mortality: 3.904% Morbidity or Mortality: 31.425% Long Length of Stay: 14.386% Short Length of Stay: 18.319% Permanent Stroke: 1.571% Prolonged Ventilation: 27.523% DSW Infection: 2.366% Renal Failure: N/A Reoperation: 8.187% Objective: Vital Signs Date Time Temp Pulse Resp B/P (MAP) Pulse Ox O2 Delivery O2 Flow Rate FiO2 09/30/17 13:00 58 09/30/17 12:00 58 09/30/17 11:44 98.5 64 18 111/71 (84) 98 09/30/17 11:00 59 09/30/17 10:00 64 09/30/17 09:48 94 21 09/30/17 09:00 62 09/30/17 08:00 64 09/30/17 07:15 98.5 64 18 111/71 (84) 98 09/30/17 07:15 66 09/30/17 06:00 64 09/30/17 05:00 66 09/30/17 04:00 67 09/30/17 04:00 98.1 69 20 111/69 (83) 97 09/30/17 03:00 68 09/30/17 02:00 64 09/30/17 01:00 66 09/30/17 00:00 98.2 66 20 100/70 (80) 93 09/30/17 00:00 67 09/29/17 23:00 68 09/29/17 22:00 66 09/29/17 21:00 66 09/29/17 20:00 68 09/29/17 20:00 98.2 69 20 109/70 (83) 92 09/29/17 19:00 68 09/29/17 18:00 66 09/29/17 17:00 64 09/29/17 16:45 60 18 132/74 (93) 94 09/29/17 16:00 68 09/29/17 15:00 68 Labs: Laboratory Tests Test 09/30/17 06:18 White Blood Count 7.6 TH/MM3 (4.0-11.0) Red Blood Count 3.22 MIL/MM3 (4.50-5.90) Hemoglobin 10.4 GM/DL (13.0-17.0) Hematocrit 31.3 % (39.0-51.0) Mean Corpuscular Volume 97.3 FL (80.0-100.0) Mean Corpuscular Hemoglobin 32.3 PG (27.0-34.0) Mean Corpuscular Hemoglobin Concent 33.1 % (32.0-36.0) Red Cell Distribution Width 17.7 % (11.6-17.2) Platelet Count 142 TH/MM3 (150-450) Mean Platelet Volume 9.5 FL (7.0-11.0) Neutrophils (%) (Auto) 82.9 % (16.0-70.0) Lymphocytes (%) (Auto) 8.0 % (9.0-44.0) Monocytes (%) (Auto) 8.2 % (0.0-8.0) Eosinophils (%) (Auto) 0.2 % (0.0-4.0) Basophils (%) (Auto) 0.7 % (0.0-2.0) Neutrophils # (Auto) 6.3 TH/MM3 (1.8-7.7) Lymphocytes # (Auto) 0.6 TH/MM3 (1.0-4.8) Monocytes # (Auto) 0.6 TH/MM3 (0-0.9) Eosinophils # (Auto) 0.0 TH/MM3 (0-0.4) Basophils # (Auto) 0.1 TH/MM3 (0-0.2) CBC Comment DIFF FINAL Differential Comment Prothrombin Time 18.2 SEC (9.8-11.6) Prothromb Time International Ratio 1.8 RATIO Activated Partial Thromboplast Time 40.9 SEC (24.3-30.1) Blood Urea Nitrogen 69 MG/DL (7-18) Creatinine 10.33 MG/DL (0.60-1.30) Random Glucose 272 MG/DL (74-106) Total Protein 6.6 GM/DL (6.4-8.2) Albumin 3.0 GM/DL (3.4-5.0) Calcium Level 8.7 MG/DL (8.5-10.1) Phosphorus Level 4.9 MG/DL (2.5-4.9) Magnesium Level 2.4 MG/DL (1.5-2.5) Alkaline Phosphatase 122 U/L (45-117) Aspartate Amino Transf (AST/SGOT) 31 U/L (15-37) Alanine Aminotransferase (ALT/SGPT) 45 U/L (12-78) Total Bilirubin 0.7 MG/DL (0.2-1.0) Sodium Level 134 MEQ/L (136-145) Potassium Level 5.2 MEQ/L (3.5-5.1) Chloride Level 95 MEQ/L (98-107) Carbon Dioxide Level 27.6 MEQ/L (21.0-32.0) Anion Gap 11 MEQ/L (5-15) Estimat Glomerular Filtration Rate 5 ML/MIN (>89) Result Diagram: 09/30/1761709/30/17617 (1) Multi-vessel coronary artery stenosis (2) NSTEMI (non-ST elevation myocardial infarction) (3) Ischemic cardiomyopathy (4) ESRD (end stage renal disease) (5) DM (diabetes mellitus) (6) Hyperlipidemia (7) HTN (hypertension) (8) ESRD on hemodialysis Lottie Monteiro Sep 30, 2017 14:46
--- NOTE | 2017-09-30 15:22 | MB ---
cc: Muriel Tim MD DATE: 09/30/2017 HISTORY OF PRESENT ILLNESS: A 57-year-old patient of Dr. Hernandez who has history of end-stage renal disease, who was last seen by ourselves, Dr. Tim, on 04/13/2017. He is a patient of Dr. Hernandez who at that time was ruled in for a non-STEMI, underwent cardiac catheterization by Dr. Aguilar. At that time, he had a 60% left main, proximal LAD 70-80%, diagonal was 90, the OM was 100, RCA 100. We were consulted at that time and the films were evaluated. He had a very poor ejection fraction with EF of 25% and had very poor targets. He was turned down for cardiovascular surgery. He, however, went under complex Impella support of the left main, LAD and circumflex. He developed restenosis and had a repeat revascularization procedure in 07/2017 involving laser atherectomy, cutting balloon and balloon angioplasty. He has been this time complaining of shortness of breath, substernal discomfort. On admission in the ER, his troponin was 0.74. He has been on Brilinta and Coumadin. He underwent cardiac catheterization by Dr. May, which showed 70% left main, proximal LAD 90%, mid distal LAD 30, diagonal 20%, the circuit was 95%, the OM 30 and the RCA 95%. EF approximately 45% on the cath. He also had an echocardiogram, which showed an EF of 50-55%, some mild LVH, mild mitral regurgitation, trace AI. We were consulted to reevaluate for coronary artery bypass grafting. PAST MEDICAL HISTORY: Includes coronary artery disease with multiple interventions, end-stage renal disease, on dialysis Tuesday, , Tuesday by Dr. Corona, diabetes mellitus, hypertension, hyperlipidemia. PAST SURGICAL HISTORY: Include AV graft, right forearm. He has had multiple cardiac interventions. ALLERGIES: HE HAS NO KNOWN ALLERGIES. HOME MEDICATIONS: Include hydralazine, simvastatin, losartan, aspirin, clonidine. FAMILY HISTORY: Mother at 54 from diabetes complications, sepsis. Father at 71 from an VT. SOCIAL HISTORY: The patient is single, disabled. No tobacco or alcohol. He lives with his brother, but his sister lives nearby in [place]. REVIEW OF SYSTEMS: GENERAL: No night sweats, fever, heat and cold intolerance. SKIN: No psoriasis, itching or hives. HEENT: No blurred vision or hearing loss. RESPIRATORY: Positive for shortness of breath. CARDIOVASCULAR: As above in the HPI. GASTROINTESTINAL: No diarrhea or vomiting. GENITOURINARY: Not applicable. CENTRAL NERVOUS SYSTEM: No history of TIA, CVA or seizure disorder. ENDOCRINOLOGY: Positive for diabetes. PHYSICAL EXAMINATION: VITAL SIGNS: Blood pressure 110/70, heart rate of 60, afebrile. GENERAL: The patient is awake, alert, in no acute distress. HEENT: Head is normocephalic, atraumatic. Pupils equal and reactive. Oral mucosa pink, moist. NECK: Supple. No JVD. HEART: Sounds S1, S2, soft systolic murmur. LUNGS: Clear to auscultation. No wheezes, rales or rhonchi. ABDOMEN: Soft, nontender. No masses or organomegaly. EXTREMITIES: Reveal a complex strawberry stacy on the left mid knee and lower leg, +1 distal pulses. No edema noted. LABORATORY DATA: Shows hemoglobin 10, hematocrit of 31, white cell count of 7.6, platelet count of 142. Sodium 134, potassium 5.2, BUN 69, creatinine 10.3, glucose 272, AST 31, ALT 45. INR 1.8 on the . Chest x-ray unremarkable. The patient did have a carotid ultrasound on 08/06, which showed some mild plaque formation with less than 50% bilaterally. IMPRESSION: This is a 57-year-old male with end-stage renal disease, coronary artery disease with multiple coronary interventions including stenting with recurrent non-ST elevation myocardial infarction, ejection fraction now 50% per echo. The cardiac films have been evaluated by Dr. Muriel Tim. Planning at this time will be for coronary artery bypass grafting on 10/05. Further studies are pending, repeat lower extremity vein mapping. His carotids have been completed. Pulmonary function testing pending. Further plan per Dr. Angeles. Dictated by CRICKET Cardenas MD LYRIC Tomlin/SHANKAR , 02:42 PM , 03:11 PM
--- NOTE | 2017-09-30 15:52 | RADRPT ---
EXAM DATE/TIME: 09/30/2017 14:44 [facility] COMPARISON: US LEG BILATERAL VENOUS DOPPLER, April 13, 2017, 17:44. INDICATIONS : Preop cardiac surgery. MEDICAL HISTORY : Myocardial infarction. Congestive heart failure. Hypercholesterolemia. Peripheralneuropathy. Syncope. Diabetes. HyperlipIdemia. HTN. Renal failure. Anticoagulant therapy, Heparin. SURGICAL HISTORY : Coronary artery stent. Cataract extraction. AV shunt. Cardiac cath. Hemodialysis. Right fifth toe rem vidhi. ENCOUNTER: Subsequent ACUITY: 2 months PAIN SCORE: 0/10 LOCATION: Bilateral leg. TECHNIQUE: Venous ultrasound of the left and right leg was performed from the inguinal ligament to the proximal calf. Real-time, color Doppler and spectral tracing, compression and augmentation techniques were us ed. FINDINGS: RIGHT LEG: There is normal compressibility of the deep venous system from the inguinal region to the proximal ca lf. No echogenic clot is seen in the lumen of the common femoral, femoral, popliteal, and posterior tibial veins. There is a normal response of the venous system to proximal and distal augmentation an d respiration. LEFT LEG: There is normal compressibility of the deep venous system from the inguinal region to the proximal ca lf. No echogenic clot is seen in the lumen of the common femoral, femoral, popliteal, and posterior tibial veins. There is a normal response of the venous system to proximal and distal augmentation an d respiration. CONCLUSION: Negative exam. No sonographic or Doppler findings of deep venous thrombosis. Lloyd Rodríguez MD on September 30, 2017 at 15:49 Board Certified Radiologist. This report was verified electronically.
--- NOTE | 2017-09-30 15:54 | RADRPT ---
EXAM DATE/TIME: 09/30/2017 15:06 [facility] COMPARISON: US VENOUS MAPPING,LOW EXT,[place], April 13, 2017, 17:56. INDICATIONS : Preop cardiac surgery. MEDICAL HISTORY : Coronary artery stent. Cataract extraction. AV shunt. Cardiac cath. Hemodialysis. Right fifth toe rem vidhi. SURGICAL HISTORY : Coronary artery stent. Cataract extraction. AV shunt. Cardiac cath. Hemodialysis. Right fifth toe rem vidhi. ENCOUNTER: Subsequent ACUITY: 2 months PAIN SCORE: 0/10 LOCATION: Bilateral leg. GREATER SAPHENOUS VEIN THIGH: PROXIMAL: Right 7 mm Left 6 mm MID: Right 4 mm Left 3 mm DISTAL: Right 3 mm Left 2 mm CALF: PROXIMAL: Right 2 mm Left 2 mm MID: Right 2 mm Left 2 mm DISTAL: Right 1 mm Left 2 mm FINDINGS: The venous system of the lower extremities are patent by color Doppler imaging. Measurements of the leg veins (in mm) are listed above. Of note, there is nonocclusive echogenic foci in the proximal ri ght greater saphenous vein which may represent some old thrombus CONCLUSION: 1. Possible old, mural nonocclusive thrombus in the proximal right greater saphenous vein. 2. Otherwise, greater saphenous veins are patent bilaterally with measurements as above. Lloyd Rodríguez MD on September 30, 2017 at 15:50 Board Certified Radiologist. This report was verified electronically.
[2017-09-30] MEDS: HEPARIN-D5W 25,000 U/250 ML 250 ML IV PRN (17:12)
[2017-10-01] VITALS (28 sets, daily range): BP systolic 95–112; BP diastolic 52–75; PULSE 50–75; RESP 18; TEMP 97.5–98.9; O2SAT 92–99
[2017-10-01 06:58] LABS: INTERNATIONAL NORMALIZED RATIO 1.5 RATIO
[2017-10-01] MEDS: SODIUM CHLORIDE 0.9% FLUSH 10 ML FLUSH IV FLUSH SCH ×4 (07:44→20:55)
[2017-10-01] MEDS: INSULIN ASPART SUPPLEMENTAL SCALE SQ SCH ×4 (08:10→21:19)
[2017-10-01] MEDS: CARVEDILOL 12.5 MG TAB PO SCH ×2 (08:12→20:56)
[2017-10-01] MEDS: DOCUSATE SODIUM 50 MG/SENNA 8.6 MG TAB PO SCH ×2 (08:16→20:55)
[2017-10-01] MEDS: CALCIUM ACETATE 667 MG CAP PO SCH ×3 (08:16→17:00)
[2017-10-01] MEDS: ASPIRIN 81 MG CHEW TAB PO SCH (08:16)
[2017-10-01] MEDS: GABAPENTIN 100 MG CAP PO SCH ×3 (08:16→17:00)
--- NOTE | 2017-10-01 11:25 | HHI.NPPN ---
Subjective General Problems: Anemia, Edema, Heart Disease, Hypertension Renal Failure: End Stage Renal Disease History of Present Illness 57-year-old male with past medical history of ischemic heart disease, hypertension, cardiomyopathy, end-stage renal disease, on hemodialysis 3 times per week, diabetes mellitus, came to the hospital with a complaint of recurrent chest pain. I was called to see the patient because of management of dialysis. The patient has a known history of ischemic heart disease and congestive heart failure. Additional Remarks Patient sitting up in chair with no complaints. Review of Systems General Constitutional: Fatigue Respiratory Respiratory Remarks No SOB Cardiovascular Cardiac: AUGUSTINE Cardiac Remarks denies CP Gastrointestinal GI Remarks Denies any abdominal pain Objective Data Data Vital Signs Date Time Temp Pulse Resp B/P (MAP) Pulse Ox O2 Delivery O2 Flow Rate FiO2 10/01/17 10:00 59 10/01/17 09:00 54 10/01/17 08:10 98.2 58 18 110/63 (79) 96 10/01/17 08:10 58 10/01/17 07:00 64 10/01/17 06:15 53 10/01/17 05:05 64 10/01/17 04:30 97.5 57 112/68 (83) 92 10/01/17 04:00 54 10/01/17 03:00 53 10/01/17 02:00 50 10/01/17 01:00 50 10/01/17 00:00 97.6 56 95/52 (66) 99 10/01/17 00:00 54 09/30/17 23:00 52 09/30/17 22:00 54 09/30/17 21:00 54 09/30/17 20:00 58 09/30/17 20:00 98.0 60 103/67 (79) 98 09/30/17 19:00 62 09/30/17 18:00 52 09/30/17 17:00 54 09/30/17 16:00 56 09/30/17 15:30 98.3 55 20 91/60 (70) 99 09/30/17 15:00 55 09/30/17 14:30 20 09/30/17 14:00 54 09/30/17 13:00 58 09/30/17 12:00 58 09/30/17 11:44 98.1 59 20 98/65 (76) 98 -: 09/30/1761709/30/17617 Physical Exam General Appearance: No Acute Distress, Comfortable Eyes Eye Exam: Pupils Equal Throat Throat Exam: Oral Mucosa [place] & Moist Neck Neck Exam: Neck Supple Pulmonary Resp Exam: Breath Sounds Equal, No Distress, Decreased Bases Cardiology CV Exam: Regular, Normal Sinus Rhythm Gastrointestinal/Abdomen GI Exam: Soft, Non-Tender, Bowel Sounds Present Integumentary Skin Exam: Clear, Warm Extremeties Extremities Exam: Trace Edema Neurologic Neuro Exam: Alert, Awake, Oriented Psychiatric Psych Exam: Appropriate Responses Assessment/Plan Discussed Condition With: Daughter Assessment Summary: Anemia of CKD, CHF, Hypertension, End Stage Renal Disease Problem List: (1) ESRD on hemodialysis ICD Codes: N18.6 - End stage renal disease; Z99.2 - Dependence on renal dialysis Plan: ESRD HD on //TUE Patient has significant IHD and has low EF. S/P heart cath found to have restenosis of his complex PCI cardiac surgery consulted Plan Continue phoslo HD today seen diring UF of 2 liters Dialysis planned for tomorrow. Patient seen and examined, agree with above. HD will be in AM, awaiting CV Surgery. (2) DM (diabetes mellitus) ICD Codes: E11.9 - Type 2 diabetes mellitus without complications (3) Ischemic cardiomyopathy ICD Codes: I25.5 - Ischemic cardiomyopathy Status: Chronic (4) NSTEMI (non-ST elevation myocardial infarction) ICD Codes: I21.4 - Non-ST elevation (NSTEMI) myocardial infarction Status: Acute (5) Hyperlipidemia ICD Codes: E78.5 - Hyperlipidemia, unspecified Status: Chronic (6) Anemia ICD Codes: D64.9 - Anemia, unspecified Status: Chronic (7) HTN (hypertension) ICD Codes: I10 - Essential (primary) hypertension Status: Chronic (8) Multi-vessel coronary artery stenosis ICD Codes: I25.10 - Atherosclerotic heart disease of [place] coronary artery without angina pectoris Plan Xavier Angel MD Oct 01, 2017 11:25
--- NOTE | 2017-10-01 11:29 | PD.CARD.PN ---
Subjective Subjective Remarks No events overnight Patient was seen on HD, no complaints Objective Medications Current Medications Medications (Trade) Dose Ordered Sig/Taj Route Start Time Stop Time Status Last Admin (Nitroglycerin 2% Oint) 0.5 inch Q6HR PRN TOPICAL 09/24/17 22:15 (D50w (Vial) Inj) 50 ml UNSCH PRN IV PUSH 09/24/17 22:15 (Glucagon Inj) 1 mg UNSCH PRN OTHER 09/24/17 22:15 (NovoLOG SUPPLEMENTAL SCALE) 1 ACHS SLIDING SCALE SQ 09/25/17 08:00 09/30/17 21:00 (NS Flush) 2 ml UNSCH PRN IV FLUSH 09/24/17 22:15 09/30/17 02:47 (NS Flush) 2 ml BID IV FLUSH 09/25/17 09:00 09/30/17 21:00 (Zofran Inj) 4 mg Q6H PRN IVP 09/24/17 22:15 (Tylenol) 650 mg Q6H PRN PO 09/24/17 22:15 ([place] 5-325 Mg) 1 tab Q4H PRN PO 09/24/17 22:15 09/30/17 13:21 (Morphine Inj) 2 mg Q3H PRN IV PUSH 09/24/17 22:15 (Janett-Colace) 1 tab BID PO 09/25/17 09:00 10/01/17 08:16 (Milk Of Magnesia Liq) 30 ml Q12H PRN PO 09/24/17 22:15 (Senokot) 17.2 mg Q12H PRN PO 09/24/17 22:15 (Dulcolax Supp) 10 mg DAILY PRN RECTAL 09/24/17 22:15 (Lactulose Liq) 30 ml DAILY PRN PO 09/24/17 22:15 (Xanax) 0.25 mg Q8H PRN PO 09/25/17 01:15 (Cordarone) 200 mg BID PO 09/25/17 09:00 Future Hold (Phoslo) 1,334 mg TID PO 09/25/17 09:00 10/01/17 08:16 (Catapres) 0.1 mg BID PO 09/25/17 09:00 Future Hold (Neurontin) 100 mg TID PO 09/25/17 09:00 10/01/17 08:16 (Apresoline) 50 mg TID PO 09/25/17 09:00 Future Hold (Imdur) 60 mg DAILY@07 PO 09/25/17 07:00 Future Hold (Coreg) 25 mg Q12HR PO 09/25/17 21:00 09/30/17 09:16 (Aspirin Chew) 81 mg DAILY PO 09/25/17 15:30 10/01/17 08:16 Sodium Chloride 1,000 ml @ 0 mls/hr Q0M PRN OTHER 09/26/17 14:46 (Heparin Inj) 8,000 units UNSCH PRN IV FLUSH 09/26/17 15:00 Sodium Chloride 1,000 ml @ 200 mls/hr Q5H PRN IV 09/26/17 14:46 Sodium Chloride 1,000 ml @ 0 mls/hr Q0M PRN OTHER 09/26/17 14:46 (Mannitol Inj) 12.5 gm UNSCH PRN IV 09/26/17 15:00 Albumin Human 100 ml @ 60 mls/hr UNSCH PRN IV 09/26/17 15:00 (NS Flush) 5 ml UNSCH PRN IV FLUSH 09/26/17 15:00 (Heparin Inj) UNSCH PRN .XX 09/26/17 15:00 (Gentamicin Inj) 20 mg UNSCH PRN OTHER 09/26/17 15:00 (Zofran Inj) 4 mg UNSCH PRN IV PUSH 09/26/17 15:00 (Tylenol) 650 mg UNSCH PRN PO 09/26/17 15:00 (Benadryl) 25 mg UNSCH PRN PO 09/26/17 15:00 (Nitrostat Sl) 0.4 mg UNSCH PRN SL 09/26/17 15:00 (Catapres) 0.1 mg UNSCH PRN PO 09/26/17 15:00 (Epogen Inj) 10,000 units UNSCH PRN IV PUSH 09/26/17 15:00 09/29/17 16:28 (Gelfoam 12 Mm/7 Mm Top) 1 foam UNSCH PRN TOP 09/26/17 15:00 09/29/17 16:27 (Heparin Inj) 5,000 units UNSCH PRN IV PUSH 09/29/17 17:45 (Heparin Inj) 2,500 units UNSCH PRN IV PUSH 09/29/17 17:45 09/30/17 17:33 Heparin Sodium/ Dextrose 250 ml @ 10 mls/hr TITRATE PRN IV 09/29/17 11:45 09/30/17 17:12 (Tessalon) 200 mg TID PRN PO 09/29/17 19:00 09/30/17 02:51 (NS Flush) 2 ml BID IV FLUSH 09/30/17 21:00 09/30/17 21:00 (NS Flush) 2 ml UNSCH PRN IV FLUSH 09/30/17 14:30 Papaverine HCl 60 mg/Nitroglycerin 100 mcg/Verapamil HCl 100 mg/Sodium Chloride 120 ml @ 0 mls/hr DIAZO TECHNICIAN IRRIGATION 09/30/17 14:30 10/07/17 14:29 Cefazolin Sodium 500 mg/Sodium Chloride 505 ml @ 0 mls/hr DIAZO TECHNICIAN IRRIGATION 09/30/17 14:30 10/07/17 14:29 Cefazolin Sodium 2000 mg/Sodium Chloride 100 ml @ 200 mls/hr DIAZO TECHNICIAN IV 09/30/17 14:30 10/07/17 14:29 (Lopressor) 12.5 mg DIAZO TECHNICIAN PO 09/30/17 14:30 10/01/17 14:29 (Hibiclens 4% Top Soln) 1 applic DIAZO TECHNICIAN TOPICAL 09/30/17 14:30 10/07/17 14:29 Insulin Human Regular 100 units/ Sodium Chloride 100 ml @ 3 mls/hr TITRATE PRN IV 09/30/17 14:30 10/07/17 14:29 (D50w (Vial) Inj) 50 ml UNSCH PRN IV PUSH 09/30/17 14:30 Vital Signs / I&O Vital Signs Date Time Temp Pulse Resp B/P (MAP) Pulse Ox O2 Delivery O2 Flow Rate FiO2 10/01/17 10:00 59 10/01/17 09:00 54 10/01/17 08:10 98.2 58 18 110/63 (79) 96 10/01/17 08:10 58 10/01/17 07:00 64 10/01/17 06:15 53 10/01/17 05:05 64 10/01/17 04:30 97.5 57 112/68 (83) 92 10/01/17 04:00 54 10/01/17 03:00 53 10/01/17 02:00 50 10/01/17 01:00 50 10/01/17 00:00 97.6 56 95/52 (66) 99 10/01/17 00:00 54 09/30/17 23:00 52 09/30/17 22:00 54 09/30/17 21:00 54 09/30/17 20:00 58 09/30/17 20:00 98.0 60 103/67 (79) 98 09/30/17 19:00 62 09/30/17 18:00 52 09/30/17 17:00 54 09/30/17 16:00 56 09/30/17 15:30 98.3 55 20 91/60 (70) 99 09/30/17 15:00 55 09/30/17 14:30 20 09/30/17 14:00 54 09/30/17 13:00 58 09/30/17 12:00 58 09/30/17 11:44 98.1 59 20 98/65 (76) 98 I/O 09/30/17 09/30/17 09/30/17 10/01/17 10/01/17 10/01/17 06:59 14:59 22:59 06:59 14:59 22:59 Intake Total 240 ml 1085 ml 240 ml Output Total 400 ml 0 ml Balance -160 ml 1085 ml 240 ml Intake Oral 240 ml 960 ml 240 ml IV Total 125 ml Output Urine Total 400 ml 0 ml Physical Exam GENERAL: NAD, AAOx3 SKIN: Warm and dry. HEAD: Atraumatic. Normocephalic. EYES: Pupils equal and round. No scleral icterus. No injection or drainage. ENT: No nasal bleeding or discharge. Mucous membranes pink and moist. NECK: Trachea midline. No JVD. CARDIOVASCULAR: Regular rate and rhythm. RESPIRATORY: No accessory muscle use. Clear to auscultation. Breath sounds equal bilaterally. GASTROINTESTINAL: Abdomen soft, non-tender, nondistended. Hepatic and splenic margins not palpable. MUSCULOSKELETAL: Extremities without clubbing, cyanosis, or edema. No obvious deformities. Right femoral no hematoma NEUROLOGICAL: Awake and alert. No obvious cranial nerve deficits. Motor grossly within normal limits. Five out of 5 muscle strength in the arms and legs. Normal speech. PSYCHIATRIC: Appropriate mood and affect; insight and judgment normal. Laboratory Laboratory Tests Test 09/30/17 14:50 10/01/17 00:04 10/01/17 04:28 Activated Partial Thromboplast Time 38.9 SEC 40.4 SEC 42.2 SEC Prothrombin Time 15.0 SEC Prothromb Time International Ratio 1.5 RATIO Assessment and Plan Problem List: (1) Multi-vessel coronary artery stenosis ICD Codes: I25.10 - Atherosclerotic heart disease of [place] coronary artery without angina pectoris (2) NSTEMI (non-ST elevation myocardial infarction) ICD Codes: I21.4 - Non-ST elevation (NSTEMI) myocardial infarction Status: Acute (3) Ischemic cardiomyopathy ICD Codes: I25.5 - Ischemic cardiomyopathy Status: Chronic (4) ESRD (end stage renal disease) ICD Codes: N18.6 - End stage renal disease Status: Acute (5) DM (diabetes mellitus) ICD Codes: E11.9 - Type 2 diabetes mellitus without complications (6) Hyperlipidemia ICD Codes: E78.5 - Hyperlipidemia, unspecified Status: Chronic (7) HTN (hypertension) ICD Codes: I10 - Essential (primary) hypertension Status: Chronic (8) ESRD on hemodialysis ICD Codes: N18.6 - End stage renal disease; Z99.2 - Dependence on renal dialysis Assessment and Plan 1) Elevated troponin/CAD Restenosis of LM/LAD/LCx stent CT surgery evaluation as targets are now better Plan tentatively on Tue Heparin drip 2) ESRD on HD 3) If chest pain unrelieved by meds or he becomes hemodynamically/electrically unstable, may need IABP over the weekend For now, con't on heparin drip 4) Brilinta stopped for possible CABG Con't Heparin drip 5) EF 50-55% José Antonio May DO Oct 01, 2017 11:29
--- NOTE | 2017-10-01 12:34 | HHI.PR ---
Subjective Remarks This is a 57-year-old male with a PMH of HTN, CAD, Ischemic Cardiomyopathy ( Echo 08/03/2017 w/ EF 40-45%), DM and ESRD on HD T//Tue who presented to the ER w/ complaints of chest pain and SOB. Recent admit for similar complaints 08/01- found to have NSTEMI, s/p Cath w/ PCI of LM/LAD/LCx, reports on Brilinta and Coumadin, compliant w/ meds. States doing well after discharge, but had PFTs done 09/16/17 and developed severe chest pain few days after. Pain is substernal, 02/03, non-radiating, associated w/ SOB. On arrival, BP 106/66, HR 62, O2 sat 98% RA, Afebrile. CBC at baseline. Chemistry essentially at baseline. Troponin 0.74. INR 2.7. CXR with no acute findings. Currently chest pain free. Follows w/ Dr. May w/ Cardiology and Dr. Corona w/ Nephro 4-2 Denies chest pain this morning. Mild dyspnea. 4-3 Patient seen after dialysis. He denies any chest pain. Still reports some mild SOB with activities. 4-4 patient is now scheduled to undergo cardiac catheterization hopefully tomorrow September 29 due to his coagulopathy. Patient will obviously need to have hemodialysis after his cardiac catheterization Have discussed with patient and RN and case management and family Await his INR to come down lower than 2.0 4-5 patient underwent his cardiac catheterization today. And cardiovascular surgery has not been consult. Have discussed with Dr. May Patient was seen in dialysis. Discussed the situation with him He is amenable to whatever is suggested Have discussed with him and cardiology and RN and case management and the patient 4-6 patient had cardiac catheterization yesterday Seen during dialysis yesterday Await cardiovascular surgery today discussed with patient and RN and family and case management Await cardiovascular surgery opinion 4-7 SEEN IN HD FOR SURGERY ON TUESDAY UNLESS ISSUES DW RN AND PT AND CARDIOLOGY AND CM AM LABS DENIES ANY CHEST PAIN OR PAIN AT THIS TIME Objective Vitals Vital Signs Date Time Temp Pulse Resp B/P (MAP) Pulse Ox O2 Delivery O2 Flow Rate FiO2 10/01/17 12:00 67 10/01/17 11:00 66 10/01/17 10:00 59 10/01/17 09:00 54 10/01/17 08:10 98.2 58 18 110/63 (79) 96 10/01/17 08:10 58 10/01/17 07:00 64 10/01/17 06:15 53 10/01/17 05:05 64 10/01/17 04:30 97.5 57 112/68 (83) 92 10/01/17 04:00 54 10/01/17 03:00 53 10/01/17 02:00 50 10/01/17 01:00 50 10/01/17 00:00 97.6 56 95/52 (66) 99 10/01/17 00:00 54 09/30/17 23:00 52 09/30/17 22:00 54 09/30/17 21:00 54 09/30/17 20:00 58 09/30/17 20:00 98.0 60 103/67 (79) 98 09/30/17 19:00 62 09/30/17 18:00 52 09/30/17 17:00 54 09/30/17 16:00 56 09/30/17 15:30 98.3 55 20 91/60 (70) 99 09/30/17 15:00 55 09/30/17 14:30 20 09/30/17 14:00 54 09/30/17 13:00 58 I/O 09/30/17 09/30/17 09/30/17 10/01/17 10/01/17 10/01/17 07:00 15:00 23:00 07:00 15:00 23:00 Intake Total 240 ml 1085 ml 240 ml Output Total 400 ml 0 ml 2000 ml Balance -160 ml 1085 ml 240 ml -2000 ml Intake Oral 240 ml 960 ml 240 ml IV Total 125 ml Output Urine Total 400 ml 0 ml Hemodialysis 2000 ml Result Diagram: 09/30/1718 09/30/17617 Other Results Laboratory Tests Test 09/29/17 05:59 09/29/17 12:30 09/30/17 00:02 09/30/17 06:18 White Blood Count 5.7 TH/MM3 5.3 TH/MM3 7.6 TH/MM3 Red Blood Count 3.00 MIL/MM3 2.69 MIL/MM3 3.22 MIL/MM3 Hemoglobin 9.7 GM/DL 8.7 GM/DL 10.4 GM/DL Hematocrit 29.2 % 26.0 % 31.3 % Mean Corpuscular Volume 97.4 FL 96.8 FL 97.3 FL Mean Corpuscular Hemoglobin 32.5 PG 32.6 PG 32.3 PG Mean Corpuscular Hemoglobin Concent 33.3 % 33.7 % 33.1 % Red Cell Distribution Width 16.9 % 17.4 % 17.7 % Platelet Count 132 TH/MM3 125 TH/MM3 142 TH/MM3 Mean Platelet Volume 9.4 FL 9.3 FL 9.5 FL Neutrophils (%) (Auto) 74.9 % 82.9 % Lymphocytes (%) (Auto) 13.5 % 8.0 % Monocytes (%) (Auto) 8.4 % 8.2 % Eosinophils (%) (Auto) 2.1 % 0.2 % Basophils (%) (Auto) 1.1 % 0.7 % Neutrophils # (Auto) 4.2 TH/MM3 6.3 TH/MM3 Lymphocytes # (Auto) 0.8 TH/MM3 0.6 TH/MM3 Monocytes # (Auto) 0.5 TH/MM3 0.6 TH/MM3 Eosinophils # (Auto) 0.1 TH/MM3 0.0 TH/MM3 Basophils # (Auto) 0.1 TH/MM3 0.1 TH/MM3 CBC Comment DIFF FINAL DIFF FINAL Differential Comment Prothrombin Time 18.8 SEC 17.9 SEC 18.2 SEC Prothromb Time International Ratio 1.9 RATIO 1.8 RATIO 1.8 RATIO Blood Urea Nitrogen 90 MG/DL 69 MG/DL Creatinine 11.59 MG/DL 10.33 MG/DL Random Glucose 201 MG/DL 272 MG/DL Total Protein 6.3 GM/DL 6.6 GM/DL Albumin 3.0 GM/DL 3.0 GM/DL Calcium Level 8.8 MG/DL 8.7 MG/DL Phosphorus Level 5.7 MG/DL 4.9 MG/DL Magnesium Level 2.4 MG/DL 2.4 MG/DL Alkaline Phosphatase 96 U/L 122 U/L Aspartate Amino Transf (AST/SGOT) 28 U/L 31 U/L Alanine Aminotransferase (ALT/SGPT) 44 U/L 45 U/L Total Bilirubin 0.6 MG/DL 0.7 MG/DL Sodium Level 135 MEQ/L 134 MEQ/L Potassium Level 5.2 MEQ/L 5.2 MEQ/L Chloride Level 96 MEQ/L 95 MEQ/L Carbon Dioxide Level 25.3 MEQ/L 27.6 MEQ/L Anion Gap 14 MEQ/L 11 MEQ/L Estimat Glomerular Filtration Rate 5 ML/MIN 5 ML/MIN Hemoglobin A1c 7.4 % Free Thyroxine 1.19 NG/DL Thyroid Stimulating Hormone 3rd Gen 10.000 uIU/ML Activated Partial Thromboplast Time 35.6 SEC 35.3 SEC 40.9 SEC Test 09/30/17 14:50 10/01/17 00:04 10/01/17 04:28 Activated Partial Thromboplast Time 38.9 SEC 40.4 SEC 42.2 SEC Prothrombin Time 15.0 SEC Prothromb Time International Ratio 1.5 RATIO Imaging Last Impressions Lower Extremity Ultrasound 09/30/17 0000 Signed Impressions: Service Date/Time: Saturday, September 30, 2017 15:06 - CONCLUSION: 1. Possible old , mural nonocclusive thrombus in the proximal right greater saphenous vein. 2. Otherwise, greater saphenous veins are patent bilaterally with measurements as above. Lloyd Rodríguez MD Chest X-Ray 09/24/[id number] Signed Impressions: Service Date/Time: Sunday, September 24, 2017 20:52 - CONCLUSION: No acute disease. Son Siu MD Objective Remarks GENERAL: Awake alert and oriented 3 talkative and cooperative --does not appear to be in any major distress SKIN: Warm and dry. HEAD: Atraumatic. Normocephalic. EYES: Pupils equal and round. No scleral icterus. No injection or drainage. Extraocular muscles intact ENT: No nasal bleeding or discharge. Mucous membranes pink and moist. Tongue is midline NECK: Trachea midline. No JVD. Supple CARDIOVASCULAR: Regular rate and rhythm. S1-S2 no S3 or S4 RESPIRATORY: No accessory muscle use. Clear to auscultation. Breath sounds equal bilaterally. GASTROINTESTINAL: Abdomen soft, non-tender, nondistended. Hepatic and splenic margins not palpable. Obese MUSCULOSKELETAL: Extremities without clubbing, cyanosis, or edema. No obvious deformities. Right upper extremity AV fistula with good thrill and bruit in the forearm NEUROLOGICAL: Awake and alert. No obvious cranial nerve deficits. Motor grossly within normal limits. Five out of 5 muscle strength in the arms and legs. Normal speech. PSYCHIATRIC: Appropriate mood and affect; insight and judgment normal. Procedures Hemodialysis 4-5 cardiac catheterization Post-cath, found to have restenosis of LM/LAD/LCx stent --cardio vascular surgery has been consulted DATE OF PROCEDURE: 09/29/2017. PROCEDURE: Left heart catheterization, coronary angiogram, moderate sedation 25 minutes, Vascade femoral closure. PREPROCEDURE DIAGNOSES: [id number] myocardial infarction, coronary artery disease. POSTPROCEDURE DIAGNOSIS: Coronary artery disease, restenosis of left main/left anterior descending/left circumflex stents. MEDICATIONS: Versed 0.5 mg, fentanyl 25 mcg. CONTRAST USED: 35 mL FLUOROSCOPY: 1.2 minutes. MODERATE SEDATION: 25 minutes. ESTIMATED BLOOD LOSS: 10 mL. PROCEDURAL SUMMARY: Dandy Singleton is a pleasant 57-year-old male whom I see in the office and presented to [facility] due to chest pain. He was found to have an elevated troponin and recommended cardiac catheterization. Risks, benefits and alternatives were explained to him and he consented to such. He was brought to the lab and prepped in the usual sterile fashion. Left femoral artery was accessed using modified Seldinger technique and placement of a 5-Maur[place] sheath. This was easily aspirated and flushed. A JR4 was advanced over a J-wire to the ascending aorta and across the aortic valve for measurement of left ventricular pressure. This was pulled back across the aortic valve, showing no significant gradient of aortic stenosis. The JR4 was used for selective angiography of the right coronary artery system. This was then exchanged for a JL4, which was used for selective angiography of the left coronary artery system. The JL4 was removed over a J-wire. Vascade femoral closure device was used for the arteriotomy. The patient left the analytical lab technician cardiovascularly stable. FINDINGS: Left main stent patent with 70% in-stent restenosis. It bifurcates into an LAD and circumflex. LAD stent and the stent from the left main into the LAD has a 90% in-stent restenosis. Mid to distal stent is patent. Distally, the vessel has diffuse 30% disease. Left circumflex stent from left main into left circumflex has a 95% restenosis. Stent in the mid portion is patent with no significant disease. It gives off 2 obtuse marginals with no significant disease. RCA is a normal size vessel with 30% disease throughout the proximal portion. Distally, the vessel is diffusely diseased of 80% to 90% throughout with subtotal occlusions. LVEDP 30. IMPRESSION: 1. Non-ST elevation myocardial infarction. 2. Coronary artery disease with complex percutaneous coronary intervention of left main, left anterior descending and left circumflex previously. RECOMMENDATIONS: 1. Mr. Singleton presented again with an elevated troponin and once again was found to have restenosis of his complex PCI. 2. As the last time I attempted to use laser arthrectomy and cutting balloons and still had restenosis, as well as now the vessels have increased in size distally due to better flow, I think that he should undergo consideration of coronary artery bypass grafting. 3. I have discussed this with CT surgery and they will see him in consultation. 4. Due to the significance of his disease, he will be placed on a heparin drip 5 hours after sheath was removed. 5. We will plan on rechecking an echo to look at his overall left ventricular function in anticipation of coronary artery bypass grafting. 6. His Brilinta will be held for anticipated coronary artery bypass grafting. 7. If at any time he has significant chest pain or becomes hemodynamically or electrically unstable, he will be taken back to the analytical lab technician emergently for placement of intraaortic balloon pump. 8. We will plan on having him undergo hemodialysis after cardiac catheterization. Thank you for allowing me to see Dandy Singleton. If there are any questions, please do not hesitate to call. Medications and IVs Current Medications Sodium Chloride (NS Flush) 2 ml UNSCH PRN IVF FLUSH AFTER USING IV ACCESS; Start 09/24/17 at 20:45; Stop 09/24/17 at 22:18; Status DC Nitroglycerin (Nitroglycerin 2% Oint) 0.5 inch Q6HR PRN TOPICAL CHEST PAIN; Start 09/24/17 at 22:15 Dextrose (D50w (Vial) Inj) 50 ml UNSCH PRN IV PUSH HYPOGLYCEMIA-SEE COMMENTS; Start 09/24/17 at 22:15 Glucagon (Glucagon Inj) 1 mg UNSCH PRN OTHER HYPOGLYCEMIA-SEE COMMENTS; Start 09/24/17 at 22:15 Insulin Aspart (NovoLOG SUPPLEMENTAL SCALE) 1 ACHS SLIDING SCALE SQ Last administered on 09/30/17at 21:00; Start 09/25/17 at 08:00 Sodium Chloride (NS Flush) 2 ml UNSCH PRN IV FLUSH FLUSH AFTER USING IV ACCESS Last administered on 09/30/17at 02:47; Start 09/24/17 at 22:15 Sodium Chloride (NS Flush) 2 ml BID IV FLUSH Last administered on 09/30/17at 21: 00; Start 09/25/17 at 09:00 Ondansetron HCl (Zofran Inj) 4 mg Q6H PRN IVP NAUSEA OR VOMITING; Start at 22:15 Acetaminophen (Tylenol) 650 mg Q6H PRN PO FEVER/PAIN SCALE 1 TO 2; Start at 22:15 Acetaminophen/ Hydrocodone Bitart ([place] 5-325 Mg) 1 tab Q4H PRN PO PAIN SCALE 3 TO 5 Last administered on 09/30/17at 13:21; Start 09/24/17 at 22:15 Morphine Sulfate (Morphine Inj) 2 mg Q3H PRN IV PUSH Pain 6-10; Start 09/24/17 at 22:15 Senna/Docusate Sodium (Janett-Colace) 1 tab BID PO Last administered on 10/01/17at 08:16; Start 09/25/17 at 09:00 Magnesium Hydroxide (Milk Of Magnesia Liq) 30 ml Q12H PRN PO Mild constipation ; Start 09/24/17 at 22:15 Sennosides (Senokot) 17.2 mg Q12H PRN PO Moderate constipation; Start 09/24/17 at 22:15 Bisacodyl (Dulcolax Supp) 10 mg DAILY PRN RECTAL SEVERE CONSITIPATION/ IF NPO ; Start 09/24/17 at 22:15 Lactulose (Lactulose Liq) 30 ml DAILY PRN PO SEVERE CONSITIPATION/ IF PO; Start 09/24/17 at 22:15 Alprazolam (Xanax) 0.25 mg Q8H PRN PO ANXIETY; Start 09/25/17 at 01:15 Amiodarone HCl (Cordarone) 200 mg BID PO ; Start 09/25/17 at 09:00; Status Future Hold Calcium Acetate (Phoslo) 1,334 mg TID PO Last administered on 10/01/17at 12:18; Start 09/25/17 at 09:00 Carvedilol (Coreg) 25 mg BID PO ; Start 09/25/17 at 09:00; Stop 09/25/17 at 15:45 ; Status DC Clonidine (Catapres) 0.1 mg BID PO ; Start 09/25/17 at 09:00; Status Future Hold Gabapentin (Neurontin) 100 mg TID PO Last administered on 10/01/17at 12:18; Start 09/25/17 at 09:00 Hydralazine HCl (Apresoline) 50 mg TID PO ; Start 09/25/17 at 09:00; Status Future Hold Isosorbide Mononitrate (Imdur) 60 mg DAILY@07 PO ; Start 09/25/17 at 07:00; Status Future Hold Ticagrelor (Brilinta) 90 mg BID PO Last administered on 09/29/17at 09:34; Start 09/25/17 at 09:00; Stop 09/29/17 at 15:20; Status DC Sodium Chloride 500 ml @ 500 mls/hr BOLUS ONCE IV Last administered on at 02:48; Start 09/25/17 at 02:45; Stop 09/25/17 at 03:44; Status DC Dextrose/Sodium Chloride 500 ml @ 500 mls/hr BOLUS ONCE IV Last administered on 09/25/17at 04:14; Start 09/25/17 at 04:00; Stop 09/25/17 at 04:59; Status DC Nitroglycerin (Nitroglycerin 2% Oint) 1 inch Q6HR TOPICAL Last administered on 09/26/17at 17:53; Start 09/25/17 at 18:00; Stop 09/26/17 at 18:42; Status DC Carvedilol (Coreg) 25 mg Q12HR PO Last administered on 09/30/17at 09:16; Start at 21:00 Aspirin (Aspirin Chew) 81 mg DAILY PO Last administered on 10/01/17at 08:16; Start 09/25/17 at 15:30 Sodium Chloride 1,000 ml @ 0 mls/hr Q0M PRN OTHER For Prime & Rinse Back; Start 09/26/17 at 14:46 Heparin Sodium (Porcine) (Heparin Inj) 8,000 units UNSCH PRN IV FLUSH WITH DIALYSIS; Start 09/26/17 at 15:00 Sodium Chloride 1,000 ml @ 200 mls/hr Q5H PRN IV WITH DIALYSIS; Start 09/26/17 at 14:46 Sodium Chloride 1,000 ml @ 0 mls/hr Q0M PRN OTHER WITH DIALYSIS; Start 09/26/17 at 14:46 Mannitol (Mannitol Inj) 12.5 gm UNSCH PRN IV WITH DIALYSIS; Start 09/26/17 at 15 :00 Albumin Human 100 ml @ 60 mls/hr UNSCH PRN IV WITH DIALYSIS; Start 09/26/17 at 15:00 Sodium Chloride (NS Flush) 5 ml UNSCH PRN IV FLUSH WITH DIALYSIS; Start at 15:00 Heparin Sodium (Porcine) (Heparin Inj) UNSCH PRN .XX WITH DIALYSIS; Start 09/26 at 15:00 Gentamicin Sulfate (Gentamicin Inj) 20 mg UNSCH PRN OTHER WITH DIALYSIS; Start 09/26/17 at 15:00 Ondansetron HCl (Zofran Inj) 4 mg UNSCH PRN IV PUSH WITH DIALYSIS; Start at 15:00 Acetaminophen (Tylenol) 650 mg UNSCH PRN PO for headach, pain, temp > 101F; Start 09/26/17 at 15:00 Diphenhydramine HCl (Benadryl) 25 mg UNSCH PRN PO for hives/itching/anaphylaxis ; Start 09/26/17 at 15:00 Nitroglycerin (Nitrostat Sl) 0.4 mg UNSCH PRN SL CHEST PAIN; Start 09/26/17 at 15:00 Clonidine (Catapres) 0.1 mg UNSCH PRN PO for BP > 180/100 X 2 readings; Start 09/26/17 at 15:00 Epoetin Abraham (Epogen Inj) 10,000 units UNSCH PRN IV PUSH WITH DIALYSIS Last administered on 09/29/17at 16:28; Start 09/26/17 at 15:00 Gelatin (Gelfoam 12 Mm/7 Mm Top) 1 foam UNSCH PRN TOP SEE LABEL COMMENTS Last administered on 09/29/17at 16:27; Start 09/26/17 at 15:00 Heparin Sodium/ Sodium Chloride 2,000 ml @ As Directed STK-MED ONCE IV FLUSH Last administered on 09/29/17at 10:46; Start 09/29/17 at 10:46; Stop 09/29/17 at 10: 47; Status DC Verapamil HCl (Isoptin Inj) 5 mg STK-MED ONCE .ROUTE ; Start 09/29/17 at 10:46; Stop 09/29/17 at 10:47; Status DC Heparin Sodium (Porcine) (Heparin Inj) 10,000 units STK-MED ONCE .ROUTE ; Start 09/29/17 at 10:46; Stop 09/29/17 at 10:47; Status DC Nitroglycerin 5 ml @ As Directed STK-MED ONCE .ROUTE ; Start 09/29/17 at 10:46; Stop 09/29/17 at 10:47; Status DC Midazolam HCl (Versed Inj) 2 mg STK-MED ONCE .ROUTE Last administered on 11:06; Start 09/29/17 at 10:58; Stop 09/29/17 at 10:59; Status DC Fentanyl Citrate (fentaNYL INJ) 100 mcg STK-MED ONCE .ROUTE Last administered on 09/29/17 11:07; Start 09/29/17 at 10:58; Stop 09/29/17 at 10:59; Status DC Heparin Sodium (Porcine) (Heparin Inj) 5,000 units UNSCH PRN IV PUSH APTT LESS THAN 25; Start 09/29/17 at 17:45 Heparin Sodium (Porcine) (Heparin Inj) 2,500 units UNSCH PRN IV PUSH APTT 25 TO 39 Last administered on 09/30/17at 17:33; Start 09/29/17 at 17:45 Heparin Sodium/ Dextrose 250 ml @ 10 mls/hr TITRATE PRN IV Coagulation Management Last administered on 09/30/17at 17:12; Start 09/29/17 at 11:45 Iohexol (OMNIPAQUE 350 INJ (Steward/Stewardess [employer])) 50 ml STK-MED ONCE OTHER Last administered on 09/29/17 13:30; Start 09/29/17 at 13:30; Stop 09/29/17 at 13:31; Status DC Benzonatate (Tessalon) 200 mg TID PRN PO COUGH Last administered on 09/30/17 02 :51; Start 09/29/17 at 19:00 Sodium Chloride (NS Flush) 2 ml BID IV FLUSH Last administered on 09/30/17at 21: 00; Start 09/30/17 at 21:00 Sodium Chloride (NS Flush) 2 ml UNSCH PRN IV FLUSH FLUSH AFTER USING IV ACCESS ; Start 09/30/17 at 14:30 Papaverine HCl 60 mg/Nitroglycerin 100 mcg/Verapamil HCl 100 mg/Sodium Chloride 120 ml @ 0 mls/hr DEMOGRAPHER IRRIGATION ; Start 09/30/17 at 14:30; Stop 10/07/17 at 14:29 Cefazolin Sodium 500 mg/Sodium Chloride 505 ml @ 0 mls/hr DEMOGRAPHER IRRIGATION ; Start 09/30/17 at 14:30; Stop 10/07/17 at 14:29 Cefazolin Sodium 2000 mg/Sodium Chloride 100 ml @ 200 mls/hr DEMOGRAPHER IV ; Start 09/30/17 at 14:30; Stop 10/07/17 at 14:29 Metoprolol Tartrate (Lopressor) 12.5 mg DEMOGRAPHER PO ; Start 09/30/17 at 14:30; Stop 10/01/17 at 14:29 Chlorhexidine Gluconate (Hibiclens 4% Top Soln) 1 applic DEMOGRAPHER TOPICAL ; Start 09/30/17 at 14:30; Stop 10/07/17 at 14:29 Insulin Human Regular 100 units/ Sodium Chloride 100 ml @ 3 mls/hr TITRATE PRN IV for blood glucose control; Start 09/30/17 at 14:30; Stop 10/07/17 at 14:29 Dextrose (D50w (Vial) Inj) 50 ml UNSCH PRN IV PUSH HYPOGLYCEMIA-SEE COMMENTS; Start 09/30/17 at 14:30 A/P Problem List: (1) NSTEMI (non-ST elevation myocardial infarction) ICD Code: I21.4 - Non-ST elevation (NSTEMI) myocardial infarction Status: Acute (2) Ischemic cardiomyopathy ICD Code: I25.5 - Ischemic cardiomyopathy Status: Chronic (3) ESRD (end stage renal disease) ICD Code: N18.6 - End stage renal disease Status: Acute (4) DM (diabetes mellitus) ICD Code: E11.9 - Type 2 diabetes mellitus without complications Assessment and Plan 57-year-old male with: 1. NSTEMI: c/o chest pain, recent NSTEMI s/p PCI, now w/ Trop 0.74, - Cardiology following. Concerned about restonosis. Cardiology planning for repeat heart cath depending on follow up INR levels. - Continue Aspirin, BRILINTA ON HOLD-CABG ON TUESDAY Had cardiac catheterization September 29 post-cath, found to have restenosis of LM/ LAD/LCx stent--CABG ON TUESDAY On heparin drip currently 2. Ischemic Cardiomyopathy: Echo 08/03/17 w/ EF 40-45%, CXR w/ no acute findings. Resume home medications. Monitor I/O. 3. DM: Sliding scale w/ Accu-Cheks. 4. ESRD on HD: T//Tue. Nephrology, Dr. Corona following. Obesity weight loss recommended 5. DVT Prophylaxis: On COUMADIN AND BRILINTA ON HOLD- Follow INR in am. Coumadin is on hold at this time on heparin drip currently A.m. labs Discharge Planning [facility] ON TUESDAY Jason Craig DO Oct 01, 2017 12:34
[2017-10-01] MEDS: HEPARIN-D5W 25,000 U/250 ML 250 ML IV PRN (13:26)
[2017-10-01 21:24] LABS: BILIRUBIN, URINE NEG (NEG); BLOOD, URINE TRACE (NEG); GLUCOSE,URINE TRACE mg/dL (NEG); KETONE, URINE TRACE mg/dL (NEG); NITRITE,URINE NEG (NEG); PH, URINE 6.5 (5.0-8.5); SQUAMOUS EPITHELIAL CELL URINE <1 /hpf (0-5); URINE COLOR YELLOW (YELLW/STRAW); URINE LEUKOCYTE ESTERASE NEG (NEG)
[2017-10-02] VITALS (21 sets, daily range): BP systolic 91–119; BP diastolic 54–74; PULSE 49–74; RESP 12–18; TEMP 97.5–98.6; O2SAT 95–99
[2017-10-02 07:32] LABS: AUTOMATED NEUTROPHIL # 4.7 TH/MM3 (1.8-7.7); BASOPHIL # 0.1 TH/MM3 (0-0.2); EOSINOPHIL # 0.1 TH/MM3 (0-0.4); EOSINOPHIL % 1.5 % (0.0-4.0); HEMATOCRIT 29.3 % (39.0-51.0); HEMOGLOBIN 9.8 GM/DL (13.0-17.0); LYMPH % 18.9 % (9.0-44.0); LYMPHOCYTE # 1.3 TH/MM3 (1.0-4.8); MEAN CELL VOLUME 97.6 FL (80.0-100.0); MEAN CORPUSCULAR HEMOGLOBIN 32.5 PG (27.0-34.0); MEAN CORPUSCULAR HGB CONC 33.3 % (32.0-36.0); MEAN PLATELET VOLUME 9.6 FL (7.0-11.0); MONO % 8.9 % (0.0-8.0); MONOCYTE # 0.6 TH/MM3 (0-0.9); NEUT % 69.7 % (16.0-70.0); PLATELET COUNT 144 TH/MM3 (150-450); RED BLOOD COUNT 3.01 MIL/MM3 (4.50-5.90); RED CELL DISTRIBUTION WIDTH 17.6 % (11.6-17.2); WHITE BLOOD COUNT 6.8 TH/MM3 (4.0-11.0)
[2017-10-02 07:36] LABS: INTERNATIONAL NORMALIZED RATIO 1.5 RATIO; PROTHROMBIN TIME - PATIENT 14.7 SEC (9.8-11.6)
[2017-10-02] MEDS: INSULIN ASPART SUPPLEMENTAL SCALE SQ SCH ×4 (08:00→22:17)
[2017-10-02 08:38] LABS: ALKALINE PHOSPHATASE 97 U/L (45-117); ALT (GPT) 39 U/L (12-78); AST (GOT) 19 U/L (15-37); BICARBONATE 30.1 MEQ/L (21.0-32.0); BLOOD UREA NITROGEN 65 MG/DL (7-18); CALCIUM 8.9 MG/DL (8.5-10.1); CHLORIDE 96 MEQ/L (98-107); CREATININE 9.63 MG/DL (0.60-1.30); GLOMERULAR FILTRATION RATE 6 ML/MIN (>89); GLUCOSE,RANDOM 171 MG/DL (74-106); MAGNESIUM 2.4 MG/DL (1.5-2.5); PHOSPHORUS 4.4 MG/DL (2.5-4.9); SODIUM (NA) 137 MEQ/L (136-145); TOTAL BILIRUBIN ADULT 0.7 MG/DL (0.2-1.0); TOTAL PROTEIN 6.8 GM/DL (6.4-8.2)
[2017-10-02] MEDS: SODIUM CHLORIDE 0.9% FLUSH 10 ML FLUSH IV FLUSH SCH ×3 (09:00→21:00)
[2017-10-02] MEDS: DOCUSATE SODIUM 50 MG/SENNA 8.6 MG TAB PO SCH ×2 (09:11→21:15)
[2017-10-02] MEDS: CARVEDILOL 12.5 MG TAB PO SCH ×2 (09:11→21:00)
[2017-10-02] MEDS: GABAPENTIN 100 MG CAP PO SCH ×3 (09:12→18:30)
[2017-10-02] MEDS: CALCIUM ACETATE 667 MG CAP PO SCH ×3 (09:12→18:30)
[2017-10-02] MEDS: ASPIRIN 81 MG CHEW TAB PO SCH (09:12)
[2017-10-02] MEDS: HEPARIN-D5W 25,000 U/250 ML 250 ML IV PRN (09:22)
--- NOTE | 2017-10-02 11:22 | HHI.PR ---
Subjective Remarks This is a 57-year-old male with a PMH of HTN, CAD, Ischemic Cardiomyopathy ( Echo 08/03/2017 w/ EF 40-45%), DM and ESRD on HD T//Tue who presented to the ER w/ complaints of chest pain and SOB. Recent admit for similar complaints 08/01- found to have NSTEMI, s/p Cath w/ PCI of LM/LAD/LCx, reports on Brilinta and Coumadin, compliant w/ meds. States doing well after discharge, but had PFTs done 09/16/17 and developed severe chest pain few days after. Pain is substernal, 02/03, non-radiating, associated w/ SOB. On arrival, BP 106/66, HR 62, O2 sat 98% RA, Afebrile. CBC at baseline. Chemistry essentially at baseline. Troponin 0.74. INR 2.7. CXR with no acute findings. Currently chest pain free. Follows w/ Dr. May w/ Cardiology and Dr. Corona w/ Nephro 4-2 Denies chest pain this morning. Mild dyspnea. 4-3 Patient seen after dialysis. He denies any chest pain. Still reports some mild SOB with activities. 4-4 patient is now scheduled to undergo cardiac catheterization hopefully tomorrow September 29 due to his coagulopathy. Patient will obviously need to have hemodialysis after his cardiac catheterization Have discussed with patient and RN and case management and family Await his INR to come down lower than 2.0 4-5 patient underwent his cardiac catheterization today. And cardiovascular surgery has not been consult. Have discussed with Dr. May Patient was seen in dialysis. Discussed the situation with him He is amenable to whatever is suggested Have discussed with him and cardiology and RN and case management and the patient 4-6 patient had cardiac catheterization yesterday Seen during dialysis yesterday Await cardiovascular surgery today discussed with patient and RN and family and case management Await cardiovascular surgery opinion 4-7 SEEN IN HD FOR SURGERY ON TUESDAY UNLESS ISSUES DW RN AND PT AND CARDIOLOGY AND CM AM LABS DENIES ANY CHEST PAIN OR PAIN AT THIS TIME 4-8 patient states he is bored today Denies any new complaints denies any chest pain denies any shortness of breath Discussed with patient and RN and case management Surgery on Tuesday for CABG Objective Vitals Vital Signs Date Time Temp Pulse Resp B/P (MAP) Pulse Ox O2 Delivery O2 Flow Rate FiO2 10/02/17 08:00 97.5 57 18 119/72 (88) 96 10/02/17 06:04 58 10/02/17 05:00 56 10/02/17 04:55 97.9 56 113/74 (87) 95 10/02/17 04:00 58 10/02/17 03:00 74 10/02/17 02:00 56 10/02/17 01:00 62 10/02/17 00:24 97.9 63 93/63 (73) 96 10/02/17 00:00 60 10/01/17 23:00 64 10/01/17 22:35 98.4 63 107/75 (86) 95 10/01/17 22:00 64 10/01/17 21:00 66 10/01/17 20:00 70 10/01/17 19:23 21 10/01/17 19:00 70 10/01/17 18:02 72 10/01/17 17:00 70 10/01/17 16:10 71 10/01/17 16:10 98.9 71 18 112/74 (87) 99 10/01/17 15:00 75 10/01/17 14:53 99 21 10/01/17 14:00 67 10/01/17 13:00 71 10/01/17 12:15 98.0 67 18 111/66 (81) 99 10/01/17 12:00 67 I/O 10/01/17 10/01/17 10/01/17 10/02/17 10/02/17 10/02/17 07:00 15:00 23:00 07:00 15:00 23:00 Intake Total 240 ml 530 ml 382 ml Output Total 2000 ml 60 ml Balance 240 ml -2000 ml 530 ml 322 ml Intake Oral 240 ml 480 ml 240 ml IV Total 50 ml 142 ml Output Urine Total 60 ml Hemodialysis 2000 ml # Voids 1 # Bowel Movements 1 Result Diagram: 10/02/17 0656 10/02/17 0556 Other Results Laboratory Tests Test 09/29/17 12:30 09/30/17 00:02 09/30/17 06:18 09/30/17 14:50 White Blood Count 5.3 TH/MM3 7.6 TH/MM3 Red Blood Count 2.69 MIL/MM3 3.22 MIL/MM3 Hemoglobin 8.7 GM/DL 10.4 GM/DL Hematocrit 26.0 % 31.3 % Mean Corpuscular Volume 96.8 FL 97.3 FL Mean Corpuscular Hemoglobin 32.6 PG 32.3 PG Mean Corpuscular Hemoglobin Concent 33.7 % 33.1 % Red Cell Distribution Width 17.4 % 17.7 % Platelet Count 125 TH/MM3 142 TH/MM3 Mean Platelet Volume 9.3 FL 9.5 FL Prothrombin Time 17.9 SEC 18.2 SEC Prothromb Time International Ratio 1.8 RATIO 1.8 RATIO Activated Partial Thromboplast Time 35.6 SEC 35.3 SEC 40.9 SEC 38.9 SEC Neutrophils (%) (Auto) 82.9 % Lymphocytes (%) (Auto) 8.0 % Monocytes (%) (Auto) 8.2 % Eosinophils (%) (Auto) 0.2 % Basophils (%) (Auto) 0.7 % Neutrophils # (Auto) 6.3 TH/MM3 Lymphocytes # (Auto) 0.6 TH/MM3 Monocytes # (Auto) 0.6 TH/MM3 Eosinophils # (Auto) 0.0 TH/MM3 Basophils # (Auto) 0.1 TH/MM3 CBC Comment DIFF FINAL Differential Comment Blood Urea Nitrogen 69 MG/DL Creatinine 10.33 MG/DL Random Glucose 272 MG/DL Total Protein 6.6 GM/DL Albumin 3.0 GM/DL Calcium Level 8.7 MG/DL Phosphorus Level 4.9 MG/DL Magnesium Level 2.4 MG/DL Alkaline Phosphatase 122 U/L Aspartate Amino Transf (AST/SGOT) 31 U/L Alanine Aminotransferase (ALT/SGPT) 45 U/L Total Bilirubin 0.7 MG/DL Sodium Level 134 MEQ/L Potassium Level 5.2 MEQ/L Chloride Level 95 MEQ/L Carbon Dioxide Level 27.6 MEQ/L Anion Gap 11 MEQ/L Estimat Glomerular Filtration Rate 5 ML/MIN Test 10/01/17 00:04 10/01/17 04:28 10/01/17 17:08 10/01/17 21:10 Activated Partial Thromboplast Time 40.4 SEC 42.2 SEC Prothrombin Time 15.0 SEC Prothromb Time International Ratio 1.5 RATIO Nasal Screen MRSA (PCR) MRSA NOT DETECTED Urine Color YELLOW Urine Turbidity CLEAR Urine pH 6.5 Urine Specific [place] 1.017 Urine Protein 100 mg/dL Urine Glucose (UA) TRACE mg/dL Urine Ketones TRACE mg/dL Urine Occult Blood TRACE Urine Nitrite NEG Urine Bilirubin NEG Urine Urobilinogen 2.0 MG/DL Urine Leukocyte Esterase NEG Urine RBC LESS THAN 1 /hpf Urine WBC 1 /hpf Urine Squamous Epithelial Cells <1 /hpf Microscopic Urinalysis Comment CULT NOT INDICATED Test 10/02/17 05:56 10/02/17 06:56 Prothrombin Time 14.7 SEC Prothromb Time International Ratio 1.5 RATIO Activated Partial Thromboplast Time 37.4 SEC Blood Urea Nitrogen 65 MG/DL Creatinine 9.63 MG/DL Random Glucose 171 MG/DL Total Protein 6.8 GM/DL Albumin 3.0 GM/DL Calcium Level 8.9 MG/DL Phosphorus Level 4.4 MG/DL Magnesium Level 2.4 MG/DL Alkaline Phosphatase 97 U/L Aspartate Amino Transf (AST/SGOT) 19 U/L Alanine Aminotransferase (ALT/SGPT) 39 U/L Total Bilirubin 0.7 MG/DL Sodium Level 137 MEQ/L Potassium Level 4.7 MEQ/L Chloride Level 96 MEQ/L Carbon Dioxide Level 30.1 MEQ/L Anion Gap 11 MEQ/L Estimat Glomerular Filtration Rate 6 ML/MIN White Blood Count 6.8 TH/MM3 Red Blood Count 3.01 MIL/MM3 Hemoglobin 9.8 GM/DL Hematocrit 29.3 % Mean Corpuscular Volume 97.6 FL Mean Corpuscular Hemoglobin 32.5 PG Mean Corpuscular Hemoglobin Concent 33.3 % Red Cell Distribution Width 17.6 % Platelet Count 144 TH/MM3 Mean Platelet Volume 9.6 FL Neutrophils (%) (Auto) 69.7 % Lymphocytes (%) (Auto) 18.9 % Monocytes (%) (Auto) 8.9 % Eosinophils (%) (Auto) 1.5 % Basophils (%) (Auto) 1.0 % Neutrophils # (Auto) 4.7 TH/MM3 Lymphocytes # (Auto) 1.3 TH/MM3 Monocytes # (Auto) 0.6 TH/MM3 Eosinophils # (Auto) 0.1 TH/MM3 Basophils # (Auto) 0.1 TH/MM3 CBC Comment DIFF FINAL Differential Comment Imaging Last Impressions Lower Extremity Ultrasound 09/30/17 0000 Signed Impressions: Service Date/Time: Saturday, September 30, 2017 15:06 - CONCLUSION: 1. Possible old , mural nonocclusive thrombus in the proximal right greater saphenous vein. 2. Otherwise, greater saphenous veins are patent bilaterally with measurements as above. Lloyd Rodríguez MD Chest X-Ray [id number] Signed Impressions: Service Date/Time: Sunday, September 24, 2017 20:52 - CONCLUSION: No acute disease. Son Siu MD Objective Remarks GENERAL: Awake alert and oriented 3 talkative and cooperative --does not appear to be in any major distress SKIN: Warm and dry. HEAD: Atraumatic. Normocephalic. EYES: Pupils equal and round. No scleral icterus. No injection or drainage. Extraocular muscles intact ENT: No nasal bleeding or discharge. Mucous membranes pink and moist. Tongue is midline NECK: Trachea midline. No JVD. Supple CARDIOVASCULAR: Regular rate and rhythm. S1-S2 no S3 or S4 RESPIRATORY: No accessory muscle use. Clear to auscultation. Breath sounds equal bilaterally. GASTROINTESTINAL: Abdomen soft, non-tender, nondistended. Hepatic and splenic margins not palpable. Obese MUSCULOSKELETAL: Extremities without clubbing, cyanosis, or edema. No obvious deformities. Right upper extremity AV fistula with good thrill and bruit in the forearm NEUROLOGICAL: Awake and alert. No obvious cranial nerve deficits. Motor grossly within normal limits. Five out of 5 muscle strength in the arms and legs. Normal speech. PSYCHIATRIC: Appropriate mood and affect; insight and judgment normal. Procedures Hemodialysis 4-5 cardiac catheterization Post-cath, found to have restenosis of LM/LAD/LCx stent --cardio vascular surgery has been consulted DATE OF PROCEDURE: 09/29/2017. PROCEDURE: Left heart catheterization, coronary angiogram, moderate sedation 25 minutes, Vascade femoral closure. PREPROCEDURE DIAGNOSES: [id number] myocardial infarction, coronary artery disease. POSTPROCEDURE DIAGNOSIS: Coronary artery disease, restenosis of left main/left anterior descending/left circumflex stents. MEDICATIONS: Versed 0.5 mg, fentanyl 25 mcg. CONTRAST USED: 35 mL FLUOROSCOPY: 1.2 minutes. MODERATE SEDATION: 25 minutes. ESTIMATED BLOOD LOSS: 10 mL. PROCEDURAL SUMMARY: Dandy Singleton is a pleasant 57-year-old male whom I see in the office and presented to [facility] due to chest pain. He was found to have an elevated troponin and recommended cardiac catheterization. Risks, benefits and alternatives were explained to him and he consented to such. He was brought to the lab and prepped in the usual sterile fashion. Left femoral artery was accessed using modified Seldinger technique and placement of a 5-Hungarian sheath. This was easily aspirated and flushed. A JR4 was advanced over a J-wire to the ascending aorta and across the aortic valve for measurement of left ventricular pressure. This was pulled back across the aortic valve, showing no significant gradient of aortic stenosis. The JR4 was used for selective angiography of the right coronary artery system. This was then exchanged for a JL4, which was used for selective angiography of the left coronary artery system. The JL4 was removed over a J-wire. Vascade femoral closure device was used for the arteriotomy. The patient left the [facility] cardiovascularly stable. FINDINGS: Left main stent patent with 70% in-stent restenosis. It bifurcates into an LAD and circumflex. LAD stent and the stent from the left main into the LAD has a 90% in-stent restenosis. Mid to distal stent is patent. Distally, the vessel has diffuse 30% disease. Left circumflex stent from left main into left circumflex has a 95% restenosis. Stent in the mid portion is patent with no significant disease. It gives off 2 obtuse marginals with no significant disease. RCA is a normal size vessel with 30% disease throughout the proximal portion. Distally, the vessel is diffusely diseased of 80% to 90% throughout with subtotal occlusions. LVEDP 30. IMPRESSION: 1. Non-ST elevation myocardial infarction. 2. Coronary artery disease with complex percutaneous coronary intervention of left main, left anterior descending and left circumflex previously. RECOMMENDATIONS: 1. Mr. Singleton presented again with an elevated troponin and once again was found to have restenosis of his complex PCI. 2. As the last time I attempted to use laser arthrectomy and cutting balloons and still had restenosis, as well as now the vessels have increased in size distally due to better flow, I think that he should undergo consideration of coronary artery bypass grafting. 3. I have discussed this with CT surgery and they will see him in consultation. 4. Due to the significance of his disease, he will be placed on a heparin drip 5 hours after sheath was removed. 5. We will plan on rechecking an echo to look at his overall left ventricular function in anticipation of coronary artery bypass grafting. 6. His Brilinta will be held for anticipated coronary artery bypass grafting. 7. If at any time he has significant chest pain or becomes hemodynamically or electrically unstable, he will be taken back to the [facility] emergently for placement of intraaortic balloon pump. 8. We will plan on having him undergo hemodialysis after cardiac catheterization. Thank you for allowing me to see Dandy Singleton. If there are any questions, please do not hesitate to call. Medications and IVs Current Medications Sodium Chloride (NS Flush) 2 ml UNSCH PRN IVF FLUSH AFTER USING IV ACCESS; Start 09/24/17 at 20:45; Stop 09/24/17 at 22:18; Status DC Nitroglycerin (Nitroglycerin 2% Oint) 0.5 inch Q6HR PRN TOPICAL CHEST PAIN; Start 09/24/17 at 22:15 Dextrose (D50w (Vial) Inj) 50 ml UNSCH PRN IV PUSH HYPOGLYCEMIA-SEE COMMENTS; Start 09/24/17 at 22:15 Glucagon (Glucagon Inj) 1 mg UNSCH PRN OTHER HYPOGLYCEMIA-SEE COMMENTS; Start 09/24/17 at 22:15 Insulin Aspart (NovoLOG SUPPLEMENTAL SCALE) 1 ACHS SLIDING SCALE SQ Last administered on 10/02/17at 08:00; Start 09/25/17 at 08:00 Sodium Chloride (NS Flush) 2 ml UNSCH PRN IV FLUSH FLUSH AFTER USING IV ACCESS Last administered on 09/30/17at 02:47; Start 09/24/17 at 22:15 Sodium Chloride (NS Flush) 2 ml BID IV FLUSH Last administered on 10/02/17at 09: 12; Start 09/25/17 at 09:00 Ondansetron HCl (Zofran Inj) 4 mg Q6H PRN IVP NAUSEA OR VOMITING; Start at 22:15 Acetaminophen (Tylenol) 650 mg Q6H PRN PO FEVER/PAIN SCALE 1 TO 2; Start at 22:15 Acetaminophen/ Hydrocodone Bitart ([place] 5-325 Mg) 1 tab Q4H PRN PO PAIN SCALE 3 TO 5 Last administered on 09/30/17at 13:21; Start 09/24/17 at 22:15 Morphine Sulfate (Morphine Inj) 2 mg Q3H PRN IV PUSH Pain 6-10; Start 09/24/17 at 22:15 Senna/Docusate Sodium (Janett-Colace) 1 tab BID PO Last administered on 10/02/17at 09:11; Start 09/25/17 at 09:00 Magnesium Hydroxide (Milk Of Magnesia Liq) 30 ml Q12H PRN PO Mild constipation ; Start 09/24/17 at 22:15 Sennosides (Senokot) 17.2 mg Q12H PRN PO Moderate constipation; Start 09/24/17 at 22:15 Bisacodyl (Dulcolax Supp) 10 mg DAILY PRN RECTAL SEVERE CONSITIPATION/ IF NPO ; Start 09/24/17 at 22:15 Lactulose (Lactulose Liq) 30 ml DAILY PRN PO SEVERE CONSITIPATION/ IF PO; Start 09/24/17 at 22:15 Alprazolam (Xanax) 0.25 mg Q8H PRN PO ANXIETY Last administered on 10/02/17at 01: 18; Start 09/25/17 at 01:15 Amiodarone HCl (Cordarone) 200 mg BID PO ; Start 09/25/17 at 09:00; Status Future Hold Calcium Acetate (Phoslo) 1,334 mg TID PO Last administered on 10/02/17at 09:12; Start 09/25/17 at 09:00 Carvedilol (Coreg) 25 mg BID PO ; Start 09/25/17 at 09:00; Stop 09/25/17 at 15:45 ; Status DC Clonidine (Catapres) 0.1 mg BID PO ; Start 09/25/17 at 09:00; Status Future Hold Gabapentin (Neurontin) 100 mg TID PO Last administered on 10/02/17at 09:12; Start 09/25/17 at 09:00 Hydralazine HCl (Apresoline) 50 mg TID PO ; Start 09/25/17 at 09:00; Status Future Hold Isosorbide Mononitrate (Imdur) 60 mg DAILY@07 PO ; Start 09/25/17 at 07:00; Status Future Hold Ticagrelor (Brilinta) 90 mg BID PO Last administered on 09/29/17at 09:34; Start 09/25/17 at 09:00; Stop 09/29/17 at 15:20; Status DC Sodium Chloride 500 ml @ 500 mls/hr BOLUS ONCE IV Last administered on at 02:48; Start 09/25/17 at 02:45; Stop 09/25/17 at 03:44; Status DC Dextrose/Sodium Chloride 500 ml @ 500 mls/hr BOLUS ONCE IV Last administered on 09/25/17at 04:14; Start 09/25/17 at 04:00; Stop 09/25/17 at 04:59; Status DC Nitroglycerin (Nitroglycerin 2% Oint) 1 inch Q6HR TOPICAL Last administered on 09/26/17at 17:53; Start 09/25/17 at 18:00; Stop 09/26/17 at 18:42; Status DC Carvedilol (Coreg) 25 mg Q12HR PO Last administered on 10/02/17at 09:11; Start at 21:00 Aspirin (Aspirin Chew) 81 mg DAILY PO Last administered on 10/02/17at 09:12; Start 09/25/17 at 15:30 Sodium Chloride 1,000 ml @ 0 mls/hr Q0M PRN OTHER For Prime & Rinse Back; Start 09/26/17 at 14:46 Heparin Sodium (Porcine) (Heparin Inj) 8,000 units UNSCH PRN IV FLUSH WITH DIALYSIS; Start 09/26/17 at 15:00 Sodium Chloride 1,000 ml @ 200 mls/hr Q5H PRN IV WITH DIALYSIS; Start 09/26/17 at 14:46 Sodium Chloride 1,000 ml @ 0 mls/hr Q0M PRN OTHER WITH DIALYSIS; Start 09/26/17 at 14:46 Mannitol (Mannitol Inj) 12.5 gm UNSCH PRN IV WITH DIALYSIS; Start 09/26/17 at 15 :00 Albumin Human 100 ml @ 60 mls/hr UNSCH PRN IV WITH DIALYSIS; Start 09/26/17 at 15:00 Sodium Chloride (NS Flush) 5 ml UNSCH PRN IV FLUSH WITH DIALYSIS; Start at 15:00 Heparin Sodium (Porcine) (Heparin Inj) UNSCH PRN .XX WITH DIALYSIS; Start 09/26 at 15:00 Gentamicin Sulfate (Gentamicin Inj) 20 mg UNSCH PRN OTHER WITH DIALYSIS; Start 09/26/17 at 15:00 Ondansetron HCl (Zofran Inj) 4 mg UNSCH PRN IV PUSH WITH DIALYSIS; Start at 15:00 Acetaminophen (Tylenol) 650 mg UNSCH PRN PO for headach, pain, temp > 101F; Start 09/26/17 at 15:00 Diphenhydramine HCl (Benadryl) 25 mg UNSCH PRN PO for hives/itching/anaphylaxis ; Start 09/26/17 at 15:00 Nitroglycerin (Nitrostat Sl) 0.4 mg UNSCH PRN SL CHEST PAIN; Start 09/26/17 at 15:00 Clonidine (Catapres) 0.1 mg UNSCH PRN PO for BP > 180/100 X 2 readings; Start 09/26/17 at 15:00 Epoetin Abraham (Epogen Inj) 10,000 units UNSCH PRN IV PUSH WITH DIALYSIS Last administered on 09/29/17at 16:28; Start 09/26/17 at 15:00 Gelatin (Gelfoam 12 Mm/7 Mm Top) 1 foam UNSCH PRN TOP SEE LABEL COMMENTS Last administered on 09/29/17 16:27; Start 09/26/17 at 15:00 Heparin Sodium/ Sodium Chloride 2,000 ml @ As Directed STK-MED ONCE IV FLUSH Last administered on 09/29/17at 10:46; Start 09/29/17 at 10:46; Stop 09/29/17 at 10: 47; Status DC Verapamil HCl (Isoptin Inj) 5 mg STK-MED ONCE .ROUTE ; Start 09/29/17 at 10:46; Stop 09/29/17 at 10:47; Status DC Heparin Sodium (Porcine) (Heparin Inj) 10,000 units STK-MED ONCE .ROUTE ; Start 09/29/17 at 10:46; Stop 09/29/17 at 10:47; Status DC Nitroglycerin 5 ml @ As Directed STK-MED ONCE .ROUTE ; Start 09/29/17 at 10:46; Stop 09/29/17 at 10:47; Status DC Midazolam HCl (Versed Inj) 2 mg STK-MED ONCE .ROUTE Last administered on 11:06; Start 09/29/17 at 10:58; Stop 09/29/17 at 10:59; Status DC Fentanyl Citrate (fentaNYL INJ) 100 mcg STK-MED ONCE .ROUTE Last administered on 4/5/18at 11:07; Start 09/29/17 at 10:58; Stop 09/29/17 at 10:59; Status DC Heparin Sodium (Porcine) (Heparin Inj) 5,000 units UNSCH PRN IV PUSH APTT LESS THAN 25; Start 09/29/17 at 17:45 Heparin Sodium (Porcine) (Heparin Inj) 2,500 units UNSCH PRN IV PUSH APTT 25 TO 39 Last administered on 09/30/17at 17:33; Start 09/29/17 at 17:45 Heparin Sodium/ Dextrose 250 ml @ 10 mls/hr TITRATE PRN IV Coagulation Management Last administered on 10/02/17at 09:22; Start 09/29/17 at 11:45 Iohexol (OMNIPAQUE 350 INJ (Bonderite Operator)) 50 ml STK-MED ONCE OTHER Last administered on 09/29/17at 13:30; Start 09/29/17 at 13:30; Stop 09/29/17 at 13:31; Status DC Benzonatate (Tessalon) 200 mg TID PRN PO COUGH Last administered on 09/30/17at 02 :51; Start 09/29/17 at 19:00 Sodium Chloride (NS Flush) 2 ml BID IV FLUSH Last administered on 10/01/17at 20: 55; Start 09/30/17 at 21:00; Stop 10/02/17 at 09:41; Status DC Sodium Chloride (NS Flush) 2 ml UNSCH PRN IV FLUSH FLUSH AFTER USING IV ACCESS ; Start 09/30/17 at 14:30; Stop 10/02/17 at 09:41; Status DC Papaverine HCl 60 mg/Nitroglycerin 100 mcg/Verapamil HCl 100 mg/Sodium Chloride 120 ml @ 0 mls/hr BLUE LEATHER SETTER IRRIGATION ; Start 09/30/17 at 14:30; Stop 10/07/17 at 14:29 Cefazolin Sodium 500 mg/Sodium Chloride 505 ml @ 0 mls/hr BLUE LEATHER SETTER IRRIGATION ; Start 09/30/17 at 14:30; Stop 10/07/17 at 14:29 Cefazolin Sodium 2000 mg/Sodium Chloride 100 ml @ 200 mls/hr BLUE LEATHER SETTER IV ; Start 09/30/17 at 14:30; Stop 10/07/17 at 14:29 Metoprolol Tartrate (Lopressor) 12.5 mg BLUE LEATHER SETTER PO ; Start 09/30/17 at 14:30; Stop 10/01/17 at 14:29; Status DC Chlorhexidine Gluconate (Hibiclens 4% Top Soln) 1 applic BLUE LEATHER SETTER TOPICAL ; Start 09/30/17 at 14:30; Stop 10/07/17 at 14:29 Insulin Human Regular 100 units/ Sodium Chloride 100 ml @ 3 mls/hr TITRATE PRN IV for blood glucose control; Start 09/30/17 at 14:30; Stop 10/07/17 at 14:29 Dextrose (D50w (Vial) Inj) 50 ml UNSCH PRN IV PUSH HYPOGLYCEMIA-SEE COMMENTS; Start 09/30/17 at 14:30 A/P Problem List: (1) NSTEMI (non-ST elevation myocardial infarction) ICD Code: I21.4 - Non-ST elevation (NSTEMI) myocardial infarction Status: Acute (2) Ischemic cardiomyopathy ICD Code: I25.5 - Ischemic cardiomyopathy Status: Chronic (3) ESRD (end stage renal disease) ICD Code: N18.6 - End stage renal disease Status: Acute (4) DM (diabetes mellitus) ICD Code: E11.9 - Type 2 diabetes mellitus without complications Assessment and Plan 57-year-old male with: 1. NSTEMI: c/o chest pain, recent NSTEMI s/p PCI, now w/ Trop 0.74, - Cardiology following. Concerned about restonosis. Cardiology planning for repeat heart cath depending on follow up INR levels. - Continue Aspirin, BRILINTA ON HOLD-CABG ON TUESDAY Had cardiac catheterization September 29 post-cath, found to have restenosis of LM/ LAD/LCx stent--CABG ON TUESDAY On heparin drip currently 2. Ischemic Cardiomyopathy: Echo 08/03/17 w/ EF 40-45%, CXR w/ no acute findings. Resume home medications. Monitor I/O. 3. DM: Sliding scale w/ Accu-Cheks. 4. ESRD on HD: T//Tue. Nephrology, Dr. Corona following. Obesity weight loss recommended 5. DVT Prophylaxis: On COUMADIN AND BRILINTA ON HOLD- Follow INR in am. Coumadin is on hold at this time on heparin drip currently A.m. labs Discharge Planning [facility] ON TUESDAY Jason Craig DO Oct 02, 2017 11:21
[2017-10-02] MEDS: HEPARIN SODIUM - IV 10,000 UNITS/10 ML VIAL IV PUSH PRN (12:59)
--- NOTE | 2017-10-02 13:53 | PD.CARD.PN ---
Subjective Subjective Remarks No events overnight No complaints Objective Medications Current Medications Medications (Trade) Dose Ordered Sig/Taj Route Start Time Stop Time Status Last Admin (Nitroglycerin 2% Oint) 0.5 inch Q6HR PRN TOPICAL 09/24/17 22:15 (D50w (Vial) Inj) 50 ml UNSCH PRN IV PUSH 09/24/17 22:15 (Glucagon Inj) 1 mg UNSCH PRN OTHER 09/24/17 22:15 (NovoLOG SUPPLEMENTAL SCALE) 1 ACHS SLIDING SCALE SQ 09/25/17 08:00 10/02/17 13:04 (NS Flush) 2 ml UNSCH PRN IV FLUSH 09/24/17 22:15 09/30/17 02:47 (NS Flush) 2 ml BID IV FLUSH 09/25/17 09:00 10/02/17 09:12 (Zofran Inj) 4 mg Q6H PRN IVP 09/24/17 22:15 (Tylenol) 650 mg Q6H PRN PO 09/24/17 22:15 (Sumner 5-325 Mg) 1 tab Q4H PRN PO 09/24/17 22:15 09/30/17 13:21 (Morphine Inj) 2 mg Q3H PRN IV PUSH 09/24/17 22:15 (Janett-Colace) 1 tab BID PO 09/25/17 09:00 10/02/17 09:11 (Milk Of Magnesia Liq) 30 ml Q12H PRN PO 09/24/17 22:15 (Senokot) 17.2 mg Q12H PRN PO 09/24/17 22:15 (Dulcolax Supp) 10 mg DAILY PRN RECTAL 09/24/17 22:15 (Lactulose Liq) 30 ml DAILY PRN PO 09/24/17 22:15 (Xanax) 0.25 mg Q8H PRN PO 09/25/17 01:15 10/02/17 01:18 (Cordarone) 200 mg BID PO 09/25/17 09:00 Future Hold (Phoslo) 1,334 mg TID PO 09/25/17 09:00 10/02/17 12:55 (Catapres) 0.1 mg BID PO 09/25/17 09:00 Future Hold (Neurontin) 100 mg TID PO 09/25/17 09:00 10/02/17 12:55 (Apresoline) 50 mg TID PO 09/25/17 09:00 Future Hold (Imdur) 60 mg DAILY@07 PO 09/25/17 07:00 Future Hold (Coreg) 25 mg Q12HR PO 09/25/17 21:00 10/02/17 09:11 (Aspirin Chew) 81 mg DAILY PO 09/25/17 15:30 10/02/17 09:12 Sodium Chloride 1,000 ml @ 0 mls/hr Q0M PRN OTHER 09/26/17 14:46 (Heparin Inj) 8,000 units UNSCH PRN IV FLUSH 09/26/17 15:00 Sodium Chloride 1,000 ml @ 200 mls/hr Q5H PRN IV 09/26/17 14:46 Sodium Chloride 1,000 ml @ 0 mls/hr Q0M PRN OTHER 09/26/17 14:46 (Mannitol Inj) 12.5 gm UNSCH PRN IV 09/26/17 15:00 Albumin Human 100 ml @ 60 mls/hr UNSCH PRN IV 09/26/17 15:00 (NS Flush) 5 ml UNSCH PRN IV FLUSH 09/26/17 15:00 (Heparin Inj) UNSCH PRN .XX 09/26/17 15:00 (Gentamicin Inj) 20 mg UNSCH PRN OTHER 09/26/17 15:00 (Zofran Inj) 4 mg UNSCH PRN IV PUSH 09/26/17 15:00 (Tylenol) 650 mg UNSCH PRN PO 09/26/17 15:00 (Benadryl) 25 mg UNSCH PRN PO 09/26/17 15:00 (Nitrostat Sl) 0.4 mg UNSCH PRN SL 09/26/17 15:00 (Catapres) 0.1 mg UNSCH PRN PO 09/26/17 15:00 (Epogen Inj) 10,000 units UNSCH PRN IV PUSH 09/26/17 15:00 09/29/17 16:28 (Gelfoam 12 Mm/7 Mm Top) 1 foam UNSCH PRN TOP 09/26/17 15:00 09/29/17 16:27 (Heparin Inj) 5,000 units UNSCH PRN IV PUSH 09/29/17 17:45 (Heparin Inj) 2,500 units UNSCH PRN IV PUSH 09/29/17 17:45 10/02/17 12:59 Heparin Sodium/ Dextrose 250 ml @ 10 mls/hr TITRATE PRN IV 09/29/17 11:45 10/02/17 09:22 (Tessalon) 200 mg TID PRN PO 09/29/17 19:00 09/30/17 02:51 Papaverine HCl 60 mg/Nitroglycerin 100 mcg/Verapamil HCl 100 mg/Sodium Chloride 120 ml @ 0 mls/hr EXCEPTIONAL STUDENT EDUCATION TEACHER IRRIGATION 09/30/17 14:30 10/07/17 14:29 Cefazolin Sodium 500 mg/Sodium Chloride 505 ml @ 0 mls/hr EXCEPTIONAL STUDENT EDUCATION TEACHER IRRIGATION 09/30/17 14:30 10/07/17 14:29 Cefazolin Sodium 2000 mg/Sodium Chloride 100 ml @ 200 mls/hr EXCEPTIONAL STUDENT EDUCATION TEACHER IV 09/30/17 14:30 10/07/17 14:29 (Hibiclens 4% Top Soln) 1 applic EXCEPTIONAL STUDENT EDUCATION TEACHER TOPICAL 09/30/17 14:30 10/07/17 14:29 Insulin Human Regular 100 units/ Sodium Chloride 100 ml @ 3 mls/hr TITRATE PRN IV 09/30/17 14:30 10/07/17 14:29 (D50w (Vial) Inj) 50 ml UNSCH PRN IV PUSH 09/30/17 14:30 Vital Signs / I&O Vital Signs Date Time Temp Pulse Resp B/P (MAP) Pulse Ox O2 Delivery O2 Flow Rate FiO2 10/02/17 12:30 98.0 54 18 113/67 (82) 98 10/02/17 08:00 58 10/02/17 08:00 97.5 57 18 119/72 (88) 96 10/02/17 06:04 58 10/02/17 05:00 56 10/02/17 04:55 97.9 56 113/74 (87) 95 10/02/17 04:00 58 10/02/17 03:00 74 10/02/17 02:00 56 10/02/17 01:00 62 10/02/17 00:24 97.9 63 93/63 (73) 96 10/02/17 00:00 60 10/01/17 23:00 64 4/7/18 22:35 98.4 63 107/75 (86) 95 10/01/17 22:00 64 10/01/17 21:00 66 10/01/17 20:00 70 10/01/17 19:23 21 10/01/17 19:00 70 10/01/17 18:02 72 10/01/17 17:00 70 10/01/17 16:10 71 10/01/17 16:10 98.9 71 18 112/74 (87) 99 10/01/17 15:00 75 10/01/17 14:53 99 21 10/01/17 14:00 67 I/O 10/01/17 10/01/17 10/01/17 10/02/17 10/02/17 10/02/17 07:00 15:00 23:00 07:00 15:00 23:00 Intake Total 240 ml 530 ml 382 ml Output Total 2000 ml 60 ml Balance 240 ml -2000 ml 530 ml 322 ml Intake Oral 240 ml 480 ml 240 ml IV Total 50 ml 142 ml Output Urine Total 60 ml Hemodialysis 2000 ml # Voids 1 # Bowel Movements 1 Physical Exam GENERAL: NAD, AAOx3 SKIN: Warm and dry. HEAD: Atraumatic. Normocephalic. EYES: Pupils equal and round. No scleral icterus. No injection or drainage. ENT: No nasal bleeding or discharge. Mucous membranes pink and moist. NECK: Trachea midline. No JVD. CARDIOVASCULAR: Regular rate and rhythm. RESPIRATORY: No accessory muscle use. Clear to auscultation. Breath sounds equal bilaterally. GASTROINTESTINAL: Abdomen soft, non-tender, nondistended. Hepatic and splenic margins not palpable. MUSCULOSKELETAL: Extremities without clubbing, cyanosis, or edema. No obvious deformities. Right femoral no hematoma NEUROLOGICAL: Awake and alert. No obvious cranial nerve deficits. Motor grossly within normal limits. Five out of 5 muscle strength in the arms and legs. Normal speech. PSYCHIATRIC: Appropriate mood and affect; insight and judgment normal. Laboratory Laboratory Tests Test 10/01/17 17:08 10/01/17 21:10 10/02/17 05:56 10/02/17 06:56 Nasal Screen MRSA (PCR) MRSA NOT DETECTED Urine Color YELLOW Urine Turbidity CLEAR Urine pH 6.5 Urine Specific [place] 1.017 Urine Protein 100 mg/dL Urine Glucose (UA) TRACE mg/dL Urine Ketones TRACE mg/dL Urine Occult Blood TRACE Urine Nitrite NEG Urine Bilirubin NEG Urine Urobilinogen 2.0 MG/DL Urine Leukocyte Esterase NEG Urine RBC LESS THAN 1 /hpf Urine WBC 1 /hpf Urine Squamous Epithelial Cells <1 /hpf Microscopic Urinalysis Comment CULT NOT INDICATED Prothrombin Time 14.7 SEC Prothromb Time International Ratio 1.5 RATIO Activated Partial Thromboplast Time 37.4 SEC Blood Urea Nitrogen 65 MG/DL Creatinine 9.63 MG/DL Random Glucose 171 MG/DL Total Protein 6.8 GM/DL Albumin 3.0 GM/DL Calcium Level 8.9 MG/DL Phosphorus Level 4.4 MG/DL Magnesium Level 2.4 MG/DL Alkaline Phosphatase 97 U/L Aspartate Amino Transf (AST/SGOT) 19 U/L Alanine Aminotransferase (ALT/SGPT) 39 U/L Total Bilirubin 0.7 MG/DL Sodium Level 137 MEQ/L Potassium Level 4.7 MEQ/L Chloride Level 96 MEQ/L Carbon Dioxide Level 30.1 MEQ/L Anion Gap 11 MEQ/L Estimat Glomerular Filtration Rate 6 ML/MIN White Blood Count 6.8 TH/MM3 Red Blood Count 3.01 MIL/MM3 Hemoglobin 9.8 GM/DL Hematocrit 29.3 % Mean Corpuscular Volume 97.6 FL Mean Corpuscular Hemoglobin 32.5 PG Mean Corpuscular Hemoglobin Concent 33.3 % Red Cell Distribution Width 17.6 % Platelet Count 144 TH/MM3 Mean Platelet Volume 9.6 FL Neutrophils (%) (Auto) 69.7 % Lymphocytes (%) (Auto) 18.9 % Monocytes (%) (Auto) 8.9 % Eosinophils (%) (Auto) 1.5 % Basophils (%) (Auto) 1.0 % Neutrophils # (Auto) 4.7 TH/MM3 Lymphocytes # (Auto) 1.3 TH/MM3 Monocytes # (Auto) 0.6 TH/MM3 Eosinophils # (Auto) 0.1 TH/MM3 Basophils # (Auto) 0.1 TH/MM3 CBC Comment DIFF FINAL Differential Comment Assessment and Plan Problem List: (1) Multi-vessel coronary artery stenosis ICD Codes: I25.10 - Atherosclerotic heart disease of [place] coronary artery without angina pectoris (2) NSTEMI (non-ST elevation myocardial infarction) ICD Codes: I21.4 - Non-ST elevation (NSTEMI) myocardial infarction Status: Acute (3) Ischemic cardiomyopathy ICD Codes: I25.5 - Ischemic cardiomyopathy Status: Chronic (4) ESRD (end stage renal disease) ICD Codes: N18.6 - End stage renal disease Status: Acute (5) DM (diabetes mellitus) ICD Codes: E11.9 - Type 2 diabetes mellitus without complications (6) Hyperlipidemia ICD Codes: E78.5 - Hyperlipidemia, unspecified Status: Chronic (7) HTN (hypertension) ICD Codes: I10 - Essential (primary) hypertension Status: Chronic (8) ESRD on hemodialysis ICD Codes: N18.6 - End stage renal disease; Z99.2 - Dependence on renal dialysis Assessment and Plan 1) Elevated troponin/CAD Restenosis of LM/LAD/LCx stent CT surgery evaluation as targets are now better Plan tentatively on Tue Heparin drip 2) ESRD on HD 3) If chest pain unrelieved by meds or he becomes hemodynamically/electrically unstable, may need IABP over the weekend For now, con't on heparin drip 4) Brilinta stopped for possible CABG Con't Heparin drip 5) EF 50-55% José Antonio May DO Oct 02, 2017 13:53
--- NOTE | 2017-10-02 15:59 | HHI.NPPN ---
Subjective General Problems: Anemia, Edema, Heart Disease, Hypertension Renal Failure: End Stage Renal Disease History of Present Illness 57-year-old male with past medical history of ischemic heart disease, hypertension, cardiomyopathy, end-stage renal disease, on hemodialysis 3 times per week, diabetes mellitus, came to the hospital with a complaint of recurrent chest pain. I was called to see the patient because of management of dialysis. The patient has a known history of ischemic heart disease and congestive heart failure. Additional Remarks Patient sitting up in chair with no complaints. Review of Systems General Constitutional: Fatigue Respiratory Respiratory Remarks No SOB Cardiovascular Cardiac: [place] Cardiac Remarks denies CP Gastrointestinal GI Remarks Denies any abdominal pain Objective Data Data Vital Signs Date Time Temp Pulse Resp B/P (MAP) Pulse Ox O2 Delivery O2 Flow Rate FiO2 10/02/17 12:30 98.0 54 18 113/67 (82) 98 10/02/17 12:00 55 10/02/17 08:00 58 10/02/17 08:00 97.5 57 18 119/72 (88) 96 10/02/17 06:04 58 10/02/17 05:00 56 10/02/17 04:55 97.9 56 113/74 (87) 95 10/02/17 04:00 58 10/02/17 03:00 74 10/02/17 02:00 56 10/02/17 01:00 62 10/02/17 00:24 97.9 63 93/63 (73) 96 10/02/17 00:00 60 10/01/17 23:00 64 10/01/17 22:35 98.4 63 107/75 (86) 95 10/01/17 22:00 64 10/01/17 21:00 66 10/01/17 20:00 70 10/01/17 19:23 21 10/01/17 19:00 70 10/01/17 18:02 72 10/01/17 17:00 70 10/01/17 16:10 71 10/01/17 16:10 98.9 71 18 112/74 (87) 99 -: 10/02/17 0656 10/02/17 0556 Physical Exam General Appearance: No Acute Distress, Comfortable Eyes Eye Exam: Pupils Equal Throat Throat Exam: Oral Mucosa [place] & Moist Neck Neck Exam: Neck Supple Pulmonary Resp Exam: Breath Sounds Equal, No Distress, Decreased Bases Cardiology CV Exam: Regular, Normal Sinus Rhythm Gastrointestinal/Abdomen GI Exam: Soft, Non-Tender, Bowel Sounds Present Integumentary Skin Exam: Clear, Warm Extremeties Extremities Exam: Trace Edema Neurologic Neuro Exam: Alert, Awake, Oriented Psychiatric Psych Exam: Appropriate Responses Assessment/Plan Discussed Condition With: Daughter Assessment Summary: Anemia of CKD, CHF, Hypertension, End Stage Renal Disease Problem List: (1) ESRD on hemodialysis ICD Codes: N18.6 - End stage renal disease; Z99.2 - Dependence on renal dialysis Plan: ESRD HD on T//TUE Patient has significant IHD and has low EF. S/P heart cath found to have restenosis of his complex PCI cardiac surgery consulted Plan Continue phoslo HD yesterday UF of 2 liters Dialysis planned for tomorrow. CV surgery Dr. Corona to follow (2) DM (diabetes mellitus) ICD Codes: E11.9 - Type 2 diabetes mellitus without complications (3) Ischemic cardiomyopathy ICD Codes: I25.5 - Ischemic cardiomyopathy Status: Chronic (4) NSTEMI (non-ST elevation myocardial infarction) ICD Codes: I21.4 - Non-ST elevation (NSTEMI) myocardial infarction Status: Acute (5) Hyperlipidemia ICD Codes: E78.5 - Hyperlipidemia, unspecified Status: Chronic (6) Anemia ICD Codes: D64.9 - Anemia, unspecified Status: Chronic (7) HTN (hypertension) ICD Codes: I10 - Essential (primary) hypertension Status: Chronic (8) Multi-vessel coronary artery stenosis ICD Codes: I25.10 - Atherosclerotic heart disease of [place] coronary artery without angina pectoris Plan Xavier Angel MD Oct 02, 2017 15:59
[2017-10-02] MEDS ORDERED: PAPAVERINE INJ 60 MG, NITROGLYCERIN INJ 100 MCG, VERAPAMIL INJ 100 MG in SODIUM CHLORID... IRRIGATION SCH (18:15)
[2017-10-03] VITALS (24 sets, daily range): BP systolic 88–121; BP diastolic 44–66; PULSE 49–64; RESP 8–20; TEMP 96.6–98.5; O2SAT 94–100
[2017-10-03] MEDS ORDERED: LACTATED RINGER'S 1000 ML IV PRN (00:15)
[2017-10-03] MEDS ORDERED: SODIUM CHLORID 0.9% 500 ML IV PRN (00:15)
[2017-10-03] MEDS ORDERED: CHLORHEXIDINE GLUCONATE 2 % 1 PACK (2 CLOTHS) TOPICAL PRN (00:15)
[2017-10-03] MEDS ORDERED: POVIDONE IODINE 5% (ANTISEPSIS KIT) 4 APPLICATIONS EACH NARE PRN (00:15)
[2017-10-03 06:11] LABS: INTERNATIONAL NORMALIZED RATIO 1.3 RATIO; PROTHROMBIN TIME - PATIENT 13.3 SEC (9.8-11.6)
[2017-10-03] MEDS ORDERED: HEPARIN SODIUM - SQ 10,000 UNITS/ML VIAL ONE ×2 (06:25)
[2017-10-03] MEDS ORDERED: VANCOMYCIN HCL 1000 MG VIAL ONE (06:25)
[2017-10-03] MEDS ORDERED: ceFAZolin INJ 1,000 MG VIAL ONE (06:25)
[2017-10-03] MEDS ORDERED: MIDAZOLAM HCL 5 MG/ML VIAL (1 ML) ONE (07:07)
[2017-10-03] MEDS ORDERED: fentaNYL CITRATE 250 MCG/5 ML AMP ONE (07:07)
[2017-10-03] MEDS: INSULIN ASPART SUPPLEMENTAL SCALE SQ SCH ×4 (08:00→21:00)
[2017-10-03] MEDS: ASPIRIN 81 MG CHEW TAB PO SCH (09:00)
[2017-10-03] MEDS: CARVEDILOL 12.5 MG TAB PO SCH ×2 (09:00→21:00)
[2017-10-03] MEDS: DOCUSATE SODIUM 50 MG/SENNA 8.6 MG TAB PO SCH ×2 (09:00→21:21)
[2017-10-03] MEDS: GABAPENTIN 100 MG CAP PO SCH ×3 (09:00→15:34)
[2017-10-03] MEDS: CALCIUM ACETATE 667 MG CAP PO SCH ×3 (09:00→15:34)
[2017-10-03] MEDS ORDERED: LACTATED RINGER'S 1000 ML INJ 500 ML IV PRN (11:24)
[2017-10-03] MEDS ORDERED: DOBUTamine PREMIX DRIP 250 ML IV PRN (11:24)
[2017-10-03] MEDS ORDERED: CALCIUM CHLORIDE 10% 1 GRAM/10 ML VIAL IV PUSH PRN (11:30)
[2017-10-03] MEDS ORDERED: POTASSIUM CHLORIDE 20 MEQ CONTROLLED RELEASE TAB PO PRN ×2 (11:30)
[2017-10-03] MEDS ORDERED: INSULIN REGULAR (IV INFUSION) 100 UNITS in SODIUM CHLORIDE 0.9% INJ 99 ML IV PRN (11:30)
[2017-10-03] MEDS ORDERED: SODIUM CHLORIDE 0.9% FLUSH 10 ML FLUSH IV FLUSH PRN (11:30)
[2017-10-03] MEDS ORDERED: DEXMEDETOMIDINE INJ 200 MCG in SODIUM CHLORIDE 0.9% INJ 50 ML IV PRN (11:30)
[2017-10-03] MEDS ORDERED: SODIUM BICARBONATE 8.4% SOLN 50 MEQ/50 ML VIAL IV PUSH PRN ×2 (11:30)
[2017-10-03] MEDS ORDERED: METOPROLOL TARTRATE 5 MG/5 ML VIAL IV PUSH PRN (11:30)
[2017-10-03] MEDS ORDERED: MORPHINE SULFATE 4 MG/ML INJ IV PUSH PRN (11:30)
[2017-10-03] MEDS ORDERED: MAGNESIUM SULFATE INJ 2 GM in SODIUM CHLORIDE 0.9% INJ 100 ML IV PRN ×4 (11:30)
[2017-10-03] MEDS ORDERED: POTASSIUM CHLOR 20 MEQ PREMIX 100 ML IV PRN ×3 (11:30)
[2017-10-03] MEDS ORDERED: DEXTROSE 50% IN WATER 50 ML VIAL(D50) IV PUSH PRN (11:30)
[2017-10-03] MEDS ORDERED: CLEVIDIPINE INJ 50 ML IV PRN (11:30)
[2017-10-03] MEDS ORDERED: NITROGLYCERIN-D5W 50 MG/250 ML 250 ML IV PRN (11:30)
[2017-10-03] MEDS ORDERED: ACETAMINOPHEN 650 MG SUPP RECTAL PRN (11:30)
[2017-10-03] MEDS ORDERED: MEPERIDINE HCL 25 MG/ML VIAL IV PUSH PRN (11:30)
[2017-10-03] MEDS ORDERED: CALCIUM CHLORIDE INJ 1 GM in SODIUM CHLORIDE 0.9% INJ 100 ML IV PRN (11:30)
[2017-10-03] MEDS ORDERED: RESP: RACEPINEPHRINE 2.25% 0.5 ML NEB NEB PRN (11:30)
[2017-10-03] MEDS ORDERED: ALBUMIN 5% INJ 250 ML IV PRN (11:30)
[2017-10-03] MEDS ORDERED: ONDANSETRON HCL 4 MG/2 ML VIAL IV PUSH PRN (11:30)
[2017-10-03] MEDS ORDERED: ACETAMINOPHEN 325 MG TAB PO PRN (11:30)
[2017-10-03] MEDS ORDERED: DOPamine 800 MG/500 ML INJ 500 ML IV PRN (11:30)
[2017-10-03] MEDS ORDERED: Post-op Orders (for Pharmacy) OTHER ONE (11:30)
[2017-10-03] MEDS ORDERED: RESP: ALBUTEROL 2.5 MG/IPRATROPIUM 0.5 MG NEB (PRN) NEB (11:30)
[2017-10-03] MEDS ORDERED: hydrALAZINE HCL 20 MG/ML VIAL IV PUSH PRN (11:30)
--- NOTE | 2017-10-03 11:34 | PD.OP ---
cc: Muriel Tim MD; José Antonio May DO Operative Report Date of Surgery: Oct 03, 2017 Preoperative Diagnosis: Postoperative Diagnosis: Procedure: 1. Urgent Off-pump Coronary Artery Bypass Grafting x 2 with Left Internal Mammary Artery ([place]) to Left Anterior Descending (LAD), reverse saphenous vein graft to the Obtuse Marginal 2 (OM2) branch of the Left Circumflex artery 2. Left Leg Endoscopic Vein [place] 3. Intraoperative Vein Mapping 4. Drainage of Pleural Effusions. Surgeon: Muriel Tim [employer] Network Engineer(s): Giorgio Chandra Operation and Findings: PREPROCEDURE DIAGNOSES 1. Severe Multi Vessel Coronary Artery Disease. 2. Acute Myocardial Infarction (NSTEMI) 3. Severe Left Ventricular Dysfunction (EF 35%) POSTPROCEDURE DIAGNOSES Same SURGICAL PROCEDURE 1. Urgent Off-pump Coronary Artery Bypass Grafting x 2 with Left Internal Mammary Artery ([place]) to Left Anterior Descending (LAD), reverse saphenous vein graft to the Obtuse Marginal 2 (OM2) branch of the Left Circumflex artery 2. Left Leg Endoscopic Vein [place] 3. Intraoperative Vein Mapping 4. Drainage of Pleural Effusions. SURGEON Muriel Tim MD SUPERVISOR [employer] JULIANNE Jensen PA-C ANESTHESIA General endotracheal [place] ATTORNEY Agustin Villegas, M[employer] COORDINATOR Jamal Felix MD PREPARATION ChloraPrep. COUNTS Needle, sponge, and instrument counts were correct. DRAINS Two 32-[place] mediastinal tubes. COMPLICATIONS None. INDICATIONS FOR PROCEDURE The patient is a 57-year-old presenting with chest pain and AMI. Patient was noted to have multi-vessel coronary artery disease. The patient is being brought to the operating room for surgical revascularization therapy. PROCEDURE Patient was brought to the operating room and placed supine on the OR table. Following the induction of adequate general endotracheal anesthesia and placement of appropriate monitoring devices, intraoperative vein mapping was performed which revealed marginal but usable-caliber conduit in bilateral thighs. The patient was then prepped and draped in standard sterile fashion. Next, 2500 units of intravenous heparin was given. The left greater saphenous vein was harvested endoscopically. This appeared to be a small but useable- caliber conduit. Simultaneously, a median sternotomy was performed and the left internal mammary artery dissected free off the posterior sternal table. The patient was systemically heparinized and anticoagulation monitored by serial ACT measurements. The internal mammary artery had good pulsatile flow in it and was a good-caliber conduit. The pericardium was then divided in the midline , the cradle created and targets analyzed. The heart was grossly and globally dilated with severe left ventricular dysfunction by intraoperative ITZEL and visualization. At this point, all anastomoses were performed in a beating-heart fashion using the [employer] stabilizing system. The left internal mammary artery was anastomosed to the mid LAD (2.25 mm) in an end-to-side fashion using 7-0 Prolene. The LAD was diffusely and heavily calcified through its entire course all the way to the apex. A relatively soft spot was identified in its mid aspect for grafting. Segment of saphenous vein graft was then anastomosed to a diffusely and heavily calcified OM2 (1.75 mm) in an end-to-side fashion using 7- 0 Prolene. The proximal anastomosis was then constructed to the ascending aorta in a running manner using 6-0 Prolene. All anastomotic sites were inspected and appeared to be hemostatic and patent. Protamine solution was given. Strict hemostasis was assured. Both pleural spaces were opened and 500 mls of serous fluid evacuated from the right space and an additional 500 from the left. The closure was undertaken. 2 chest tubes were placed. The pericardium was partially reapproximated in the midline. The sternum was approximated using sternal wires. The muscular and fascial layer were then closed in 3 layers. The endoscopic vein harvest site was closed in 2 layers. The patient tolerated the procedure well and was transferred to CVICU in stable condition. Muriel Tim MD Oct 03, 2017 11:34
[2017-10-03] MEDS ORDERED: PROTAMINE SULFATE 50 MG/5 ML VIAL IV ONE (12:00)
[2017-10-03] MEDS ORDERED: HEPARIN SODIUM - SQ 10,000 UNITS/ML VIAL OTHER ONE (12:00)
[2017-10-03] MEDS ORDERED: PHENYLEPHRINE HCL 10 MG/ML VIAL IV ONE (12:00)
[2017-10-03] MEDS ORDERED: VECURONIUM BROMIDE 10 MG VIAL IV ONE (12:00)
[2017-10-03] MEDS ORDERED: PHENYLEPH/NS 1000 MCG/10 ML SYR IV ONE (12:00)
[2017-10-03] MEDS ORDERED: GLYCOPYRROLATE 0.2 MG/ML VIAL IV ONE (12:00)
[2017-10-03] MEDS ORDERED: CALCIUM CHLORIDE 10% SOLN 1 GRAM/10 ML SYR IV ONE (12:00)
[2017-10-03] MEDS ORDERED: LIDOCAINE HCL 1% PF 5 ML SYRINGE OTHER ONE (12:00)
[2017-10-03] MEDS ORDERED: ePHEDrine/NS 25 MG/5 ML SYRINGE IV ONE (12:00)
[2017-10-03] MEDS ORDERED: EPINEPHrine HCL (1:10,000) 1 MG/10 ML SYRINGE IV ONE (12:00)
[2017-10-03] MEDS ORDERED: DEXMEDETOMIDINE HCL 200 MCG/2 ML VIAL IV ONE (12:00)
[2017-10-03] MEDS ORDERED: MAGNESIUM SULFATE 1 GM/2 ML VIAL IV ONE (12:00)
[2017-10-03] MEDS ORDERED: ceFAZolin INJ 1,000 MG VIAL IV ONE (12:30)
[2017-10-03] MEDS ORDERED: ceFAZolin 1,000 MG/NS 100 ML IV ONE ×2 (12:30)
[2017-10-03] MEDS ORDERED: ceFAZolin 2 GM PREMIX 50 ML IV SCH (13:00)
[2017-10-03] MEDS: ACETAMINOPHEN 1000 MG/100 ML 100 ML IV SCH ×2 (13:01→18:01)
--- NOTE | 2017-10-03 13:05 | RADRPT ---
EXAM DATE/TIME: 10/03/2017 12:38 [facility] COMPARISON: CHEST SINGLE AP, August 04, 2017, 15:44. INDICATIONS : Post CABG MEDICAL HISTORY : Myocardial infarction. SURGICAL HISTORY : CABG. ENCOUNTER: Subsequent ACUITY: 1 week PAIN SCORE: Non-responsive. LOCATION: Bilateral chest FINDINGS: The patient is status post sternotomy. ET tube, NG tube, left subclavian line, mediastinal drain and left chest tube appear well placed. The heart size is enlarged. There is increased density in the lef t base in retrocardiac area. The right lung is grossly clear. CONCLUSION: 1. Status post sternotomy. 2. Left lower lobe atelectasis or consolidation in the retrocardiac region. Noam Dumont MD on October 03, 2017 at 13:02 Board Certified Radiologist. This report was verified electronically.
[2017-10-03 14:51] LABS: AUTOMATED NEUTROPHIL # 9.1 TH/MM3 (1.8-7.7); BASOPHIL # 0.1 TH/MM3 (0-0.2); BASOPHIL % 0.5 % (0.0-2.0); EOSINOPHIL # 0.1 TH/MM3 (0-0.4); EOSINOPHIL % 0.7 % (0.0-4.0); HEMATOCRIT 27.4 % (39.0-51.0); HEMOGLOBIN 9.2 GM/DL (13.0-17.0); LYMPH % 5.7 % (9.0-44.0); LYMPHOCYTE # 0.6 TH/MM3 (1.0-4.8); MEAN CORPUSCULAR HEMOGLOBIN 32.4 PG (27.0-34.0); MEAN CORPUSCULAR HGB CONC 33.8 % (32.0-36.0); MEAN PLATELET VOLUME 9.4 FL (7.0-11.0); MONO % 8.8 % (0.0-8.0); NEUT % 84.3 % (16.0-70.0); PLATELET COUNT 158 TH/MM3 (150-450); RED BLOOD COUNT 2.85 MIL/MM3 (4.50-5.90); RED CELL DISTRIBUTION WIDTH 18.1 % (11.6-17.2); WHITE BLOOD COUNT 10.8 TH/MM3 (4.0-11.0)
--- NOTE | 2017-10-03 14:59 | PD.CARD.PN ---
Subjective Subjective Remarks Post CABG today Dobutamine/Kb Chest tubes with increased output Objective Medications Current Medications Medications (Trade) Dose Ordered Sig/Taj Route Start Time Stop Time Status Last Admin (Nitroglycerin 2% Oint) 0.5 inch Q6HR PRN TOPICAL 09/24/17 22:15 (Glucagon Inj) 1 mg UNSCH PRN OTHER 09/24/17 22:15 (NovoLOG SUPPLEMENTAL SCALE) 1 ACHS SLIDING SCALE SQ 09/25/17 08:00 10/02/17 22:17 (Tylenol) 650 mg Q6H PRN PO 09/24/17 22:15 ([place] 5-325 Mg) 1 tab Q4H PRN PO 09/24/17 22:15 09/30/17 13:21 (Morphine Inj) 2 mg Q3H PRN IV PUSH 09/24/17 22:15 (Janett-Colace) 1 tab BID PO 09/25/17 09:00 10/02/17 21:15 (Milk Of Magnesia Liq) 30 ml Q12H PRN PO 09/24/17 22:15 (Senokot) 17.2 mg Q12H PRN PO 09/24/17 22:15 (Dulcolax Supp) 10 mg DAILY PRN RECTAL 09/24/17 22:15 (Lactulose Liq) 30 ml DAILY PRN PO 09/24/17 22:15 (Xanax) 0.25 mg Q8H PRN PO 09/25/17 01:15 10/02/17 01:18 (Phoslo) 1,334 mg TID PO 09/25/17 09:00 10/02/17 18:30 (Catapres) 0.1 mg BID PO 09/25/17 09:00 Future Hold (Neurontin) 100 mg TID PO 09/25/17 09:00 10/02/17 18:30 (Apresoline) 50 mg TID PO 09/25/17 09:00 Future Hold (Imdur) 60 mg DAILY@07 PO 09/25/17 07:00 Future Hold (Coreg) 25 mg Q12HR PO 09/25/17 21:00 10/02/17 09:11 Albumin Human 100 ml @ 60 mls/hr UNSCH PRN IV 09/26/17 15:00 (Heparin Inj) 5,000 units UNSCH PRN IV PUSH 09/29/17 17:45 (Heparin Inj) 2,500 units UNSCH PRN IV PUSH 09/29/17 17:45 10/02/17 12:59 Heparin Sodium/ Dextrose 250 ml @ 10 mls/hr TITRATE PRN IV 09/29/17 11:45 10/02/17 09:22 (Tessalon) 200 mg TID PRN PO 09/29/17 19:00 09/30/17 02:51 Cefazolin Sodium 500 mg/Sodium Chloride 505 ml @ 0 mls/hr SYSTEM VALIDATION ENGINEER IRRIGATION 09/30/17 14:30 10/07/17 14:29 10/03/17 10:24 Cefazolin Sodium 2000 mg/Sodium Chloride 100 ml @ 200 mls/hr SYSTEM VALIDATION ENGINEER IV 09/30/17 14:30 10/07/17 14:29 10/03/17 08:31 (Hibiclens 4% Top Soln) 1 applic SYSTEM VALIDATION ENGINEER TOPICAL 09/30/17 14:30 10/07/17 14:29 10/03/17 07:25 Papaverine HCl 60 mg/Nitroglycerin 100 mcg/Verapamil HCl 100 mg/Sodium Chloride 100 ml @ 0 mls/hr SYSTEM VALIDATION ENGINEER IRRIGATION 10/02/17 18:15 10/07/17 14:29 10/03/17 10:29 Lactated Ringer's 1,000 ml @ 30 mls/hr Q24H PRN IV 10/03/17 00:15 10/06/17 00:14 Sodium Chloride 500 ml @ 30 mls/hr [id number] PRN IV 10/03/17 00:15 10/06/17 00:14 (Betadine 5% Antisepsis Kit) 1 applic SYSTEM VALIDATION ENGINEER PRN EACH NARE 10/03/17 00:15 10/06/17 00:14 (Chlorhexidine 2% Cloth) 3 pack SYSTEM VALIDATION ENGINEER PRN TOPICAL 10/03/17 00:15 10/06/17 00:14 (NS Flush) 2 ml BID IV FLUSH 10/03/17 21:00 (NS Flush) 2 ml UNSCH PRN IV FLUSH 10/03/17 11:30 Dexmedetomidine HCl 200 mcg/ Sodium Chloride 52 ml @ 5.4 mls/hr TITRATE PRN IV 10/03/17 11:30 Nitroglycerin/ Dextrose 250 ml @ 1.5 mls/hr TITRATE PRN IV 10/03/17 11:30 Dobutamine HCl/ Dextrose 250 ml @ 0 mls/hr Q0M PRN IV 10/03/17 11:24 Dopamine HCl/ Dextrose 500 ml @ 0 mls/hr TITRATE PRN IV 10/03/17 11:30 Phenylephrine HCl 40 mg/Dextrose 500 ml @ 30 mls/hr TITRATE PRN IV 10/03/17 11:30 Clevidipine 50 ml @ 2 mls/hr TITRATE PRN IV 10/03/17 11:30 Albumin Human 250 ml @ 250 mls/hr UNSCH PRN IV 10/03/17 11:30 Lactated Ringer's 500 ml @ 500 mls/hr Q1H PRN IV 10/03/17 11:24 (Aspirin Chew) 81 mg DAILY PO 10/04/17 09:00 (Plavix) 75 mg DAILY PO 10/04/17 09:00 (Protonix) 40 mg DAILY@06 PO 10/04/17 06:00 (Cordarone) 200 mg Q12HR PO 10/03/17 21:00 (Tylenol) 650 mg Q4H PRN PO 10/03/17 11:30 (Tylenol Supp) 650 mg Q4H PRN RECTAL 10/03/17 11:30 Acetaminophen 100 ml @ 400 mls/hr Q6H IV 10/03/17 13:00 10/04/17 07:14 10/03/17 13:01 (Morphine Inj) 1 mg Q10M PRN IV PUSH 10/03/17 11:30 (Demerol Inj) 12.5 mg Q4H PRN IV PUSH 10/03/17 11:30 (Percocet 5-325 Mg) 2 tab Q3H PRN PO 10/03/17 11:30 (fentaNYL INJ) 25 mcg Q1H PRN IV PUSH 10/03/17 11:30 (Zofran Inj) 4 mg Q6H PRN IV PUSH 10/03/17 11:30 (Apresoline Inj) 10 mg Q4H PRN IV PUSH 10/03/17 11:30 (Lopressor Inj) 2.5 mg Q1H PRN IV PUSH 10/03/17 11:30 Potassium Chloride 100 ml @ 50 mls/hr UNSCH PRN IV 10/03/17 11:30 Potassium Chloride 100 ml @ 50 mls/hr UNSCH PRN IV 10/03/17 11:30 (KCl) 20 meq UNSCH PRN PO 10/03/17 11:30 (KCl) 40 meq UNSCH PRN PO 10/03/17 11:30 Magnesium Sulfate 2 gm/Sodium Chloride 104 ml @ 100 mls/hr UNSCH PRN IV 10/03/17 11:30 Magnesium Sulfate 2 gm/Sodium Chloride 104 ml @ 50 mls/hr UNSCH PRN IV 10/03/17 11:30 Calcium Chloride 1 gm/Sodium Chloride 110 ml @ 100 mls/hr UNSCH PRN IV 10/03/17 11:30 10/03/17 13:01 (Calcium Chloride Inj) 0.5 gm UNSCH PRN IV PUSH 10/03/17 11:30 Insulin Human Regular 100 units/ Sodium Chloride 100 ml @ 3 mls/hr TITRATE PRN IV 10/03/17 11:30 (D50w (Vial) Inj) 50 ml UNSCH PRN IV PUSH 10/03/17 11:30 10/03/17 13:07 Cefazolin Sodium/ Dextrose 50 ml @ 100 mls/hr Q8H IV 10/03/17 13:00 10/04/17 21:29 (Sodium Bicarbonate 8.4% Inj) 50 meq UNSCH PRN IV PUSH 10/03/17 11:30 (Sodium Bicarbonate 8.4% Inj) 100 meq UNSCH PRN IV PUSH 10/03/17 11:30 (Duoneb Neb) 1 ampule Q6HR NEB NEB 10/03/17 16:00 (Duoneb Neb) 1 ampule Q2HR NEB PRN NEB 10/03/17 11:30 (Racepinephrine 2.25% Neb) 0.5 ml UNSCH X1 PRN NEB 10/03/17 11:30 10/04/17 11:29 Vital Signs / I&O Vital Signs Date Time Temp Pulse Resp B/P (MAP) Pulse Ox O2 Delivery O2 Flow Rate FiO2 10/03/17 14:23 97.8 49 15 110/50 99 10/03/17 14:12 99 40 10/03/17 12:49 97.3 50 12 104/51 97 10/03/17 12:30 50 10/03/17 12:30 50 4/9/18 12:18 94 50 10/03/17 12:15 97.8 50 12 91/55 (67) 99 113/52 (72) 10/03/17 06:05 57 10/03/17 05:59 98.5 58 18 116/66 (83) 97 10/03/17 05:20 55 10/03/17 04:28 55 10/03/17 03:16 56 10/03/17 02:22 56 10/03/17 01:21 57 10/03/17 00:03 54 10/02/17 23:35 98.6 56 17 111/60 (77) 97 10/02/17 23:35 57 10/02/17 22:40 56 10/02/17 20:20 53 10/02/17 19:31 97.8 54 18 105/54 (71) 98 10/02/17 19:13 54 10/02/17 18:00 51 10/02/17 17:00 49 10/02/17 16:00 51 10/02/17 15:00 97.6 52 12 91/55 (67) 99 10/02/17 15:00 52 I/O 10/02/17 10/02/17 10/02/17 10/03/17 10/03/17 10/03/17 07:00 15:00 23:00 07:00 15:00 23:00 Intake Total 382 ml 240 ml 3580 ml Output Total 60 ml 500 ml 0 ml 1250 ml Balance 322 ml -500 ml 240 ml 2330 ml Intake Oral 240 ml 240 ml IV Total 142 ml 300 ml Autotransfusion 630 ml Packed Cells 400 ml Blood Product IV Normal Saline Flush 50 ml Other 2200 ml Output Urine Total 60 ml 500 ml 0 ml 50 ml Estimated Blood Loss 1200 ml Physical Exam GENERAL: Intubated, sedated SKIN: Warm and dry. HEAD: Atraumatic. Normocephalic. EYES: Pupils equal and round. No scleral icterus. No injection or drainage. ENT: No nasal bleeding or discharge. Mucous membranes pink and moist. NECK: Trachea midline. No JVD. CARDIOVASCULAR: Regular rate and rhythm. RESPIRATORY: No accessory muscle use. Clear to auscultation. Breath sounds equal bilaterally. GASTROINTESTINAL: Abdomen soft, non-tender, nondistended. Hepatic and splenic margins not palpable. MUSCULOSKELETAL: Extremities without clubbing, cyanosis, or edema. No obvious deformities. Right femoral no hematoma NEUROLOGICAL: Intubated, sedated Laboratory Laboratory Tests Test 10/02/17 18:02 10/03/17 05:50 10/03/17 14:10 Activated Partial Thromboplast Time 36.5 SEC 24.1 SEC Prothrombin Time 13.3 SEC Prothromb Time International Ratio 1.3 RATIO White Blood Count 10.8 TH/MM3 Red Blood Count 2.85 MIL/MM3 Hemoglobin 9.2 GM/DL Hematocrit 27.4 % Mean Corpuscular Volume 96.0 FL Mean Corpuscular Hemoglobin 32.4 PG Mean Corpuscular Hemoglobin Concent 33.8 % Red Cell Distribution Width 18.1 % Platelet Count 158 TH/MM3 Mean Platelet Volume 9.4 FL Neutrophils (%) (Auto) 84.3 % Lymphocytes (%) (Auto) 5.7 % Monocytes (%) (Auto) 8.8 % Eosinophils (%) (Auto) 0.7 % Basophils (%) (Auto) 0.5 % Neutrophils # (Auto) 9.1 TH/MM3 Lymphocytes # (Auto) 0.6 TH/MM3 Monocytes # (Auto) 1.0 TH/MM3 Eosinophils # (Auto) 0.1 TH/MM3 Basophils # (Auto) 0.1 TH/MM3 CBC Comment DIFF FINAL Differential Comment Imaging Last 24 hours Impressions Chest X-Ray 10/03/17 0000 Signed Impressions: Service Date/Time: Tuesday, October 03, 2017 12:38 - CONCLUSION: 1. Status post sternotomy. 2. Left lower lobe atelectasis or consolidation in the retrocardiac region. Noam Dumont MD Assessment and Plan Problem List: (1) Multi-vessel coronary artery stenosis ICD Codes: I25.10 - Atherosclerotic heart disease of [place] coronary artery without angina pectoris (2) NSTEMI (non-ST elevation myocardial infarction) ICD Codes: I21.4 - Non-ST elevation (NSTEMI) myocardial infarction Status: Acute (3) Ischemic cardiomyopathy ICD Codes: I25.5 - Ischemic cardiomyopathy Status: Chronic (4) ESRD (end stage renal disease) ICD Codes: N18.6 - End stage renal disease Status: Acute (5) DM (diabetes mellitus) ICD Codes: E11.9 - Type 2 diabetes mellitus without complications (6) Hyperlipidemia ICD Codes: E78.5 - Hyperlipidemia, unspecified Status: Chronic (7) HTN (hypertension) ICD Codes: I10 - Essential (primary) hypertension Status: Chronic (8) ESRD on hemodialysis ICD Codes: N18.6 - End stage renal disease; Z99.2 - Dependence on renal dialysis Assessment and Plan 1) Elevated troponin/CAD Restenosis of LM/LAD/LCx stent s/p CABGx2 POD #0 SANDERSON to LAD SVG to OM 2) ESRD on HD 3) EF 50-55% 4) Wean pressors as possible José Antonio May DO Oct 03, 2017 14:59
[2017-10-03] MEDS: PHENYLEPHRINE INJ 40 MG in DEXTROSE 5% IN WATE 500 ML INJ 496 ML IV PRN ×2 (15:22)
[2017-10-03] MEDS: RESP: ALBUTEROL 2.5 MG/IPRATROPIUM 0.5 MG NEB (SCH) NEB ×2 (15:33→21:14)
[2017-10-03 16:54] LABS: INTERNATIONAL NORMALIZED RATIO 1.4 RATIO; PROTHROMBIN TIME - PATIENT 14.3 SEC (9.8-11.6)
--- NOTE | 2017-10-03 18:40 | HHI.PR ---
Subjective Remarks Patient status post CABG just came from operation room still under sedation, 2 chest tube, on dobutamine and Kb-Synephrine drip Objective Vitals Vital Signs Date Time Temp Pulse Resp B/P (MAP) Pulse Ox O2 Delivery O2 Flow Rate FiO2 10/03/17 18:11 58 111/42 10/03/17 17:53 97.9 56 16 121/55 97 10/03/17 17:49 56 115/54 10/03/17 17:38 97.9 57 16 118/57 97 10/03/17 16:38 97.9 52 16 111/48 100 10/03/17 16:25 100 Nasal Cannula 3 10/03/17 15:33 100 40 10/03/17 15:22 51 98/46 10/03/17 15:22 51 98/46 10/03/17 15:00 97.9 50 8 88/49 (62) 99 94/44 (61) 10/03/17 15:00 52 10/03/17 15:00 40 10/03/17 14:23 97.8 49 15 110/50 99 10/03/17 14:12 99 40 10/03/17 12:49 97.3 50 12 104/51 97 10/03/17 12:30 50 10/03/17 12:30 50 10/03/17 12:18 94 50 10/03/17 12:15 97.8 50 12 91/55 (67) 99 113/52 (72) 10/03/17 06:05 57 10/03/17 05:59 98.5 58 18 116/66 (83) 97 10/03/17 05:20 55 10/03/17 04:28 55 10/03/17 03:16 56 10/03/17 02:22 56 10/03/17 01:21 57 10/03/17 00:03 54 10/02/17 23:35 98.6 56 17 111/60 (77) 97 10/02/17 23:35 57 10/02/17 22:40 56 10/02/17 20:20 53 10/02/17 19:31 97.8 54 18 105/54 (71) 98 10/02/17 19:13 54 I/O 10/02/17 10/02/17 10/02/17 10/03/17 10/03/179/18 07:00 15:00 23:00 07:00 15:00 23:00 Intake Total 382 ml 240 ml 3580 ml 1601 ml Output Total 60 ml 500 ml 0 ml 1250 ml 1065 ml Balance 322 ml -500 ml 240 ml 2330 ml 536 ml Intake Oral 240 ml 240 ml IV Total 142 ml 300 ml 479 ml Autotransfusion 630 ml Packed Cells 400 ml FFP 572 ml Platelets 248 ml Cryoprecipitate 242 ml Blood Product IV Normal Saline Flush 50 ml 60 ml Other 2200 ml Output Urine Total 60 ml 500 ml 0 ml 50 ml 215 ml Gastric Drainage Total 0 ml Chest Tube Drainage Total 850 ml Estimated Blood Loss 1200 ml # Bowel Movements 0 Result Diagram: 10/03/17 1410 10/02/17 0556 Objective Remarks GENERAL: This is a well-nourished, well-developed patient, under sedation postop SKIN: No rashes, warm and dry HEAD: Atraumatic. Normocephalic. EYES: Pupils equal round and reactive. Extraocular motions intact. No scleral icterus. ENT: Nose without bleeding, or drainage, Airway patent. NECK: Trachea midline. Supple CARDIOVASCULAR: Regular rate and rhythm without murmurs, gallops, or rubs. Chest tube in place, RESPIRATORY: Fair air entry bilaterally. No wheezes, rales, or rhonchi. GASTROINTESTINAL: Abdomen soft, non-tender, nondistended. Positive bowel sounds MUSCULOSKELETAL: Extremities without clubbing, cyanosis, or edema. Pedal pulses appreciated NEUROLOGICAL: Under sedation postop Procedures Hemodialysis 4-5 cardiac catheterization Post-cath, found to have restenosis of LM/LAD/LCx stent --cardio vascular surgery has been consulted DATE OF PROCEDURE: 09/29/2017. PROCEDURE: Left heart catheterization, coronary angiogram, moderate sedation 25 minutes, Vascade femoral closure. PREPROCEDURE DIAGNOSES: [id number]-ES-[id number] myocardial infarction, coronary artery disease. POSTPROCEDURE DIAGNOSIS: Coronary artery disease, restenosis of left main/left anterior descending/left circumflex stents. MEDICATIONS: Versed 0.5 mg, fentanyl 25 mcg. CONTRAST USED: 35 mL FLUOROSCOPY: 1.2 minutes. MODERATE SEDATION: 25 minutes. ESTIMATED BLOOD LOSS: 10 mL. PROCEDURAL SUMMARY: Dandy Singleton is a pleasant 57-year-old male whom I see in the office and presented to [facility] due to chest pain. He was found to have an elevated troponin and recommended cardiac catheterization. Risks, benefits and alternatives were explained to him and he consented to such. He was brought to the lab and prepped in the usual sterile fashion. Left femoral artery was accessed using modified Seldinger technique and placement of a 5-Frisian sheath. This was easily aspirated and flushed. A JR4 was advanced over a J-wire to the ascending aorta and across the aortic valve for measurement of left ventricular pressure. This was pulled back across the aortic valve, showing no significant gradient of aortic stenosis. The JR4 was used for selective angiography of the right coronary artery system. This was then exchanged for a JL4, which was used for selective angiography of the left coronary artery system. The JL4 was removed over a J-wire. Vascade femoral closure device was used for the arteriotomy. The patient left the [facility] cardiovascularly stable. FINDINGS: Left main stent patent with 70% in-stent restenosis. It bifurcates into an LAD and circumflex. LAD stent and the stent from the left main into the LAD has a 90% in-stent restenosis. Mid to distal stent is patent. Distally, the vessel has diffuse 30% disease. Left circumflex stent from left main into left circumflex has a 95% restenosis. Stent in the mid portion is patent with no significant disease. It gives off 2 obtuse marginals with no significant disease. RCA is a normal size vessel with 30% disease throughout the proximal portion. Distally, the vessel is diffusely diseased of 80% to 90% throughout with subtotal occlusions. LVEDP 30. IMPRESSION: 1. Non-ST elevation myocardial infarction. 2. Coronary artery disease with complex percutaneous coronary intervention of left main, left anterior descending and left circumflex previously. RECOMMENDATIONS: 1. Mr. Singleton presented again with an elevated troponin and once again was found to have restenosis of his complex PCI. 2. As the last time I attempted to use laser arthrectomy and cutting balloons and still had restenosis, as well as now the vessels have increased in size distally due to better flow, I think that he should undergo consideration of coronary artery bypass grafting. 3. I have discussed this with CT surgery and they will see him in consultation. 4. Due to the significance of his disease, he will be placed on a heparin drip 5 hours after sheath was removed. 5. We will plan on rechecking an echo to look at his overall left ventricular function in anticipation of coronary artery bypass grafting. 6. His Brilinta will be held for anticipated coronary artery bypass grafting. 7. If at any time he has significant chest pain or becomes hemodynamically or electrically unstable, he will be taken back to the [facility] emergently for placement of intraaortic balloon pump. 8. We will plan on having him undergo hemodialysis after cardiac catheterization. Thank you for allowing me to see Dandy Singleton. If there are any questions, please do not hesitate to call. A/P Problem List: (1) NSTEMI (non-ST elevation myocardial infarction) ICD Code: I21.4 - Non-ST elevation (NSTEMI) myocardial infarction Status: Acute (2) Ischemic cardiomyopathy ICD Code: I25.5 - Ischemic cardiomyopathy Status: Chronic (3) ESRD (end stage renal disease) ICD Code: N18.6 - End stage renal disease Status: Acute (4) DM (diabetes mellitus) ICD Code: E11.9 - Type 2 diabetes mellitus without complications Assessment and Plan Non-STEMI coronary artery disease multiple vessels Restenosis of LM/LAD/LCx stent s/p CABGx2 POD #1 SANDERSON to LAD SVG to OM status post CABG Ischemic cardiomyopathy EF 55% Diabetes mellitus ESRD on hemodialysis DVT prophylaxis Plan: Status post CABG today patient still under sedation, do chest tube, on dopamine and Kb-Synephrine drip, CVS following Postop management insulin drip to switch to basal insulin, Accu-Chek with ISS per surgery team Appreciate nephrology follow-up, for hemodialysis On heparin drip Close monitoring under telemetry, Repeat CBC BMP in a.m., Lencho No MD Oct 03, 2017 18:40
--- NOTE | 2017-10-03 19:17 | HHI.NPPN ---
Subjective General Problems: Anemia, Edema, Heart Disease, Hypertension Renal Failure: End Stage Renal Disease History of Present Illness 57-year-old male with past medical history of ischemic heart disease, hypertension, cardiomyopathy, end-stage renal disease, on hemodialysis 3 times per week, diabetes mellitus, came to the hospital with a complaint of recurrent chest pain. I was called to see the patient because of management of dialysis. The patient has a known history of ischemic heart disease and congestive heart failure. Additional Remarks Patient seen after the CABG, extubated, awake, not in distress. Review of Systems General Constitutional: Fatigue Respiratory Respiratory Remarks No SOB Cardiovascular Cardiac: AUGUSTINE Cardiac Remarks denies CP Gastrointestinal GI Remarks Denies any abdominal pain Objective Data Data 10/03/17 10/04/17 18:59 06:59 Intake Total 5181 ml Output Total 2315 ml Balance 2866 ml IV Total 779 ml Autotransfusion 630 ml Packed Cells 400 ml FFP 572 ml Platelets 248 ml Cryoprecipitate 242 ml Blood Product IV Normal Saline Flush 110 ml Other 2200 ml Output Urine Total 265 ml Gastric Drainage Total 0 ml Chest Tube Drainage Total 850 ml Estimated Blood Loss 1200 ml # Bowel Movements 0 Vital Signs Date Time Temp Pulse Resp B/P (MAP) Pulse Ox O2 Delivery O2 Flow Rate FiO2 10/03/17 18:11 58 111/42 10/03/17 17:53 97.9 56 16 121/55 97 10/03/17 17:49 56 115/54 10/03/17 17:38 97.9 57 16 118/57 97 10/03/17 16:38 97.9 52 16 111/48 100 10/03/17 16:25 100 Nasal Cannula 3 10/03/17 15:33 100 40 10/03/17 15:22 51 98/46 10/03/17 15:22 51 98/46 10/03/17 15:00 97.9 50 8 88/49 (62) 99 94/44 (61) 10/03/17 15:00 52 10/03/17 15:00 40 10/03/17 14:23 97.8 49 15 110/50 99 10/03/17 14:12 99 40 10/03/17 12:49 97.3 50 12 104/51 97 10/03/17 12:30 50 10/03/17 12:30 50 10/03/17 12:18 94 50 10/03/17 12:15 97.8 50 12 91/55 (67) 99 113/52 (72) 10/03/17 06:05 57 10/03/17 05:59 98.5 58 18 116/66 (83) 97 10/03/17 05:20 55 10/03/17 04:28 55 10/03/17 03:16 56 10/03/17 02:22 56 10/03/17 01:21 57 10/03/17 00:03 54 10/02/17 23:35 98.6 56 17 111/60 (77) 97 10/02/17 23:35 57 10/02/17 22:40 56 10/02/17 20:20 53 10/02/17 19:31 97.8 54 18 105/54 (71) 98 -: 10/03/17 1410 10/02/17 0556 Physical Exam General Appearance: No Acute Distress, Comfortable Eyes Eye Exam: Pupils Equal Throat Throat Exam: Oral Mucosa [place] & Moist Neck Neck Exam: Neck Supple Pulmonary Resp Exam: Breath Sounds Equal, No Distress, Decreased Bases Cardiology CV Exam: Regular, Normal Sinus Rhythm Gastrointestinal/Abdomen GI Exam: Soft, Non-Tender, Bowel Sounds Present Integumentary Skin Exam: Clear, Warm Extremeties Extremities Exam: Trace Edema Neurologic Neuro Exam: Alert, Awake, Oriented Psychiatric Psych Exam: Appropriate Responses Assessment/Plan Discussed Condition With: Daughter Assessment Summary: Anemia of CKD, CHF, Hypertension, End Stage Renal Disease Problem List: (1) ESRD on hemodialysis ICD Codes: N18.6 - End stage renal disease; Z99.2 - Dependence on renal dialysis Plan: ESRD HD on //TUE Patient has significant IHD and has low EF. S/P heart cath found to have restenosis of his complex PCI cardiac surgery consulted Plan Continue phoslo Dialysis planned for tomorrow. Post CABG now, K was normal in AM. BP is on lower side. HD will be in AM. Follow Hgb. on Epogen with HD. (2) DM (diabetes mellitus) ICD Codes: E11.9 - Type 2 diabetes mellitus without complications (3) Ischemic cardiomyopathy ICD Codes: I25.5 - Ischemic cardiomyopathy Status: Chronic (4) NSTEMI (non-ST elevation myocardial infarction) ICD Codes: I21.4 - Non-ST elevation (NSTEMI) myocardial infarction Status: Acute (5) Hyperlipidemia ICD Codes: E78.5 - Hyperlipidemia, unspecified Status: Chronic (6) Anemia ICD Codes: D64.9 - Anemia, unspecified Status: Chronic (7) HTN (hypertension) ICD Codes: I10 - Essential (primary) hypertension Status: Chronic (8) Multi-vessel coronary artery stenosis ICD Codes: I25.10 - Atherosclerotic heart disease of [place] coronary artery without angina pectoris Plan Jeana Corona MD Oct 03, 2017 19:16
[2017-10-03] MEDS: AMIODARONE 200 MG TAB PO SCH (21:21)
[2017-10-03] MEDS: SODIUM CHLORIDE 0.9% FLUSH 10 ML FLUSH IV FLUSH SCH (21:21)
[2017-10-04] VITALS (13 sets, daily range): BP systolic 70–136; BP diastolic 42–87; PULSE 64–78; RESP 16–20; TEMP 97.3–98.8; O2SAT 96–99
[2017-10-04] MEDS: ACETAMINOPHEN 1000 MG/100 ML 100 ML IV SCH ×2 (01:28→05:48)
[2017-10-04] MEDS: DOBUTamine INJ 250 MG in DEXTROSE 5% IN WATER INJ 230 ML IV PRN ×4 (03:09→15:36)
[2017-10-04] MEDS: RESP: ALBUTEROL 2.5 MG/IPRATROPIUM 0.5 MG NEB (SCH) NEB ×4 (03:40→20:30)
--- NOTE | 2017-10-04 04:07 | RADRPT ---
EXAM DATE/TIME: 10/04/2017 03:30 [place] COMPARISON: CHEST SINGLE AP, October 03, 2017, 12:38. INDICATIONS : Short of breath. MEDICAL HISTORY : Myocardial infarction. SURGICAL HISTORY : CABG. ENCOUNTER: Subsequent ACUITY: 1 week PAIN SCORE: 0/10 LOCATION: Bilateral chest FINDINGS: A single view of the chest demonstrates CABG. Mediastinal left-sided chest tubes without pneumothorax . Minimal bibasilar densities. Heart enlarged. Endotracheal tube and nasogastric tube removed. [place] us structures are intact. CONCLUSION: 1. Status post CABG. 2. Minimal bibasilar densities likely atelectasis. Jaylan Burgos MD on October 04, 2017 at 4:05 Board Certified Radiologist. This report was verified electronically.
[2017-10-04 05:01] LABS: AUTOMATED NEUTROPHIL # 8.7 TH/MM3 (1.8-7.7); BASOPHIL # 0.1 TH/MM3 (0-0.2); BASOPHIL % 0.5 % (0.0-2.0); EOSINOPHIL % 0.2 % (0.0-4.0); HEMATOCRIT 24.4 % (39.0-51.0); HEMOGLOBIN 8.2 GM/DL (13.0-17.0); LYMPH % 3.5 % (9.0-44.0); LYMPHOCYTE # 0.3 TH/MM3 (1.0-4.8); MEAN CELL VOLUME 95.6 FL (80.0-100.0); MEAN CORPUSCULAR HGB CONC 33.5 % (32.0-36.0); MEAN PLATELET VOLUME 9.1 FL (7.0-11.0); MONO % 7.6 % (0.0-8.0); MONOCYTE # 0.8 TH/MM3 (0-0.9); NEUT % 88.2 % (16.0-70.0); PLATELET COUNT 135 TH/MM3 (150-450); RED BLOOD COUNT 2.55 MIL/MM3 (4.50-5.90); RED CELL DISTRIBUTION WIDTH 17.7 % (11.6-17.2); WHITE BLOOD COUNT 9.9 TH/MM3 (4.0-11.0)
[2017-10-04 05:14] LABS: INTERNATIONAL NORMALIZED RATIO 1.4 RATIO; PROTHROMBIN TIME - PATIENT 14.2 SEC (9.8-11.6)
[2017-10-04 05:34] LABS: ALBUMIN 2.4 GM/DL (3.4-5.0); ALKALINE PHOSPHATASE 60 U/L (45-117); ALT (GPT) 19 U/L (12-78); AST (GOT) 14 U/L (15-37); BICARBONATE 25.4 MEQ/L (21.0-32.0); BLOOD UREA NITROGEN 69 MG/DL (7-18); CALCIUM 8.3 MG/DL (8.5-10.1); CHLORIDE 101 MEQ/L (98-107); GLOMERULAR FILTRATION RATE 5 ML/MIN (>89); GLUCOSE,RANDOM 99 MG/DL (74-106); SODIUM (NA) 138 MEQ/L (136-145); TOTAL BILIRUBIN ADULT 0.4 MG/DL (0.2-1.0)
[2017-10-04 05:37] LABS: CREATININE 11.16 MG/DL (0.60-1.30)
[2017-10-04] MEDS: PANTOPRAZOLE SOD 40 MG DELAYED RELEASE TAB PO SCH (05:45)
[2017-10-04] MEDS: PHENYLEPHRINE INJ 40 MG in DEXTROSE 5% IN WATE 500 ML INJ 496 ML IV PRN ×2 (06:39)
--- NOTE | 2017-10-04 07:35 | EKG ---
Date Performed: 10/04/2017 Time Performed: 04:55:40 PTAGE: 57 years EKG: Sinus rhythm . First-degree AV block Left axis deviation IV conduction defect Nonspecific ST and T wave abnormalit ies Low QRS voltages in precordial leads Abnormal ECG No significant change from prior electrocardiog teresa. PREVIOUS TRACING : 09/24/2017 20.04 DOCTOR: Roddy Hernandez Interpretating Date/Time 10/04/2017 07:33:30
[2017-10-04] MEDS: INSULIN ASPART SUPPLEMENTAL SCALE SQ SCH ×5 (07:39→22:00)
[2017-10-04] MEDS: SODIUM CHLORIDE 0.9% FLUSH 10 ML FLUSH IV FLUSH SCH ×2 (07:39→20:45)
[2017-10-04] MEDS: CEFAZOLIN INJ 2,000 MG in SODIUM CHLORIDE 0.9% INJ 100 ML IV SCH (07:55)
[2017-10-04] MEDS ORDERED: BISACODYL 10 MG SUPP RECTAL PRN (08:45)
[2017-10-04] MEDS ORDERED: TERBUTALINE INJ 1 MG/ML AMP SQ PRN (08:45)
[2017-10-04] MEDS ORDERED: DEXTROSE 50% IN WATER 50 ML VIAL(D50) IV PUSH PRN (08:45)
[2017-10-04] MEDS ORDERED: GLUCAGON 1 MG/ML VIAL OTHER PRN (08:45)
[2017-10-04] MEDS ORDERED: SOD PHOSPHATE/SOD BIPHOSPHATE (ADULT) ENEMA 133ML RECTAL PRN (08:45)
[2017-10-04] MEDS ORDERED: PHENYLEPHRINE HCL 160 MG/D5W 484 ML ADMIX IV PRN ×2 (08:45)
[2017-10-04] MEDS ORDERED: INSULIN DETEMIR 100 UNITS/ML VIAL SQ ONE (08:45)
[2017-10-04] MEDS: CARVEDILOL 12.5 MG TAB PO SCH ×2 (09:00→20:46)
--- NOTE | 2017-10-04 09:42 | PD.CARD.PN ---
Subjective Subjective Remarks Kb drip Extubated, doing well Objective Medications Current Medications Medications (Trade) Dose Ordered Sig/Taj Route Start Time Stop Time Status Last Admin (Nitroglycerin 2% Oint) 0.5 inch Q6HR PRN TOPICAL 09/24/17 22:15 (Glucagon Inj) 1 mg UNSCH PRN OTHER 09/24/17 22:15 (Tylenol) 650 mg Q6H PRN PO 09/24/17 22:15 ([place] 5-325 Mg) 1 tab Q4H PRN PO 09/24/17 22:15 09/30/17 13:21 (Morphine Inj) 2 mg Q3H PRN IV PUSH 09/24/17 22:15 (Janett-Colace) 1 tab BID PO 09/25/17 09:00 10/03/17 21:21 (Milk Of Magnesia Liq) 30 ml Q12H PRN PO 09/24/17 22:15 (Senokot) 17.2 mg Q12H PRN PO 09/24/17 22:15 (Dulcolax Supp) 10 mg DAILY PRN RECTAL 09/24/17 22:15 (Lactulose Liq) 30 ml DAILY PRN PO 09/24/17 22:15 (Xanax) 0.25 mg Q8H PRN PO 09/25/17 01:15 10/02/17 01:18 (Phoslo) 1,334 mg TID PO 09/25/17 09:00 10/02/17 18:30 (Catapres) 0.1 mg BID PO 09/25/17 09:00 Future Hold (Neurontin) 100 mg TID PO 09/25/17 09:00 10/02/17 18:30 (Apresoline) 50 mg TID PO 09/25/17 09:00 Future Hold (Imdur) 60 mg DAILY@07 PO 09/25/17 07:00 Future Hold (Coreg) 25 mg Q12HR PO 09/25/17 21:00 10/02/17 09:11 Albumin Human 100 ml @ 60 mls/hr UNSCH PRN IV 09/26/17 15:00 (Heparin Inj) 5,000 units UNSCH PRN IV PUSH 09/29/17 17:45 (Heparin Inj) 2,500 units UNSCH PRN IV PUSH 09/29/17 17:45 10/02/17 12:59 Heparin Sodium/ Dextrose 250 ml @ 10 mls/hr TITRATE PRN IV 09/29/17 11:45 10/02/17 09:22 (Tessalon) 200 mg TID PRN PO 09/29/17 19:00 09/30/17 02:51 Cefazolin Sodium 500 mg/Sodium Chloride 505 ml @ 0 mls/hr LAUNDRY OPERATOR FINISHING IRRIGATION 09/30/17 14:30 10/07/17 14:29 10/03/17 10:24 Cefazolin Sodium 2000 mg/Sodium Chloride 100 ml @ 200 mls/hr LAUNDRY OPERATOR FINISHING IV 09/30/17 14:30 10/07/17 14:29 10/03/17 08:31 (Hibiclens 4% Top Soln) 1 applic LAUNDRY OPERATOR FINISHING TOPICAL 09/30/17 14:30 10/07/17 14:29 10/03/17 07:25 Papaverine HCl 60 mg/Nitroglycerin 100 mcg/Verapamil HCl 100 mg/Sodium Chloride 100 ml @ 0 mls/hr LAUNDRY OPERATOR FINISHING IRRIGATION 10/02/17 18:15 10/07/17 14:29 10/03/17 10:29 Lactated Ringer's 1,000 ml @ 30 mls/hr Q24H PRN IV 10/03/17 00:15 10/06/17 00:14 Sodium Chloride 500 ml @ 30 mls/hr [id number] PRN IV 10/03/17 00:15 10/06/17 00:14 (Betadine 5% Antisepsis Kit) 1 applic LAUNDRY OPERATOR FINISHING PRN EACH NARE 10/03/17 00:15 10/06/17 00:14 (Chlorhexidine 2% Cloth) 3 pack LAUNDRY OPERATOR FINISHING PRN TOPICAL 10/03/17 00:15 10/06/17 00:14 (NS Flush) 2 ml BID IV FLUSH 10/03/17 21:00 10/03/17 21:21 (NS Flush) 2 ml UNSCH PRN IV FLUSH 10/03/17 11:30 Dexmedetomidine HCl 200 mcg/ Sodium Chloride 52 ml @ 5.4 mls/hr TITRATE PRN IV 10/03/17 11:30 Nitroglycerin/ Dextrose 250 ml @ 1.5 mls/hr TITRATE PRN IV 10/03/17 11:30 Dopamine HCl/ Dextrose 500 ml @ 0 mls/hr TITRATE PRN IV 10/03/17 11:30 Clevidipine 50 ml @ 2 mls/hr TITRATE PRN IV 10/03/17 11:30 Albumin Human 250 ml @ 250 mls/hr UNSCH PRN IV 10/03/17 11:30 10/04/17 03:24 Lactated Ringer's 500 ml @ 500 mls/hr Q1H PRN IV 10/03/17 11:24 (Aspirin Chew) 81 mg DAILY PO 10/04/17 09:00 (Plavix) 75 mg DAILY PO 10/04/17 09:00 (Protonix) 40 mg DAILY@06 PO 10/04/17 06:00 10/04/17 05:45 (Cordarone) 200 mg Q12HR PO 10/03/17 21:00 10/03/17 21:21 (Tylenol) 650 mg Q4H PRN PO 10/03/17 11:30 (Tylenol Supp) 650 mg Q4H PRN RECTAL 10/03/17 11:30 (Morphine Inj) 1 mg Q10M PRN IV PUSH 10/03/17 11:30 (Demerol Inj) 12.5 mg Q4H PRN IV PUSH 10/03/17 11:30 (Percocet 5-325 Mg) 2 tab Q3H PRN PO 10/03/17 11:30 (fentaNYL INJ) 25 mcg Q1H PRN IV PUSH 10/03/17 11:30 10/03/17 17:36 (Zofran Inj) 4 mg Q6H PRN IV PUSH 10/03/17 11:30 (Apresoline Inj) 10 mg Q4H PRN IV PUSH 10/03/17 11:30 (Lopressor Inj) 2.5 mg Q1H PRN IV PUSH 10/03/17 11:30 Potassium Chloride 100 ml @ 50 mls/hr UNSCH PRN IV 10/03/17 11:30 Potassium Chloride 100 ml @ 50 mls/hr UNSCH PRN IV 10/03/17 11:30 (KCl) 20 meq UNSCH PRN PO 10/03/17 11:30 (KCl) 40 meq UNSCH PRN PO 10/03/17 11:30 Magnesium Sulfate 2 gm/Sodium Chloride 104 ml @ 100 mls/hr UNSCH PRN IV 10/03/17 11:30 Magnesium Sulfate 2 gm/Sodium Chloride 104 ml @ 50 mls/hr UNSCH PRN IV 10/03/17 11:30 Calcium Chloride 1 gm/Sodium Chloride 110 ml @ 100 mls/hr UNSCH PRN IV 10/03/17 11:30 10/03/17 13:01 (Calcium Chloride Inj) 0.5 gm UNSCH PRN IV PUSH 10/03/17 11:30 Insulin Human Regular 100 units/ Sodium Chloride 100 ml @ 3 mls/hr TITRATE PRN IV 10/03/17 11:30 10/03/17 16:00 (D50w (Vial) Inj) 50 ml UNSCH PRN IV PUSH 10/03/17 11:30 10/03/17 13:07 (Sodium Bicarbonate 8.4% Inj) 50 meq UNSCH PRN IV PUSH 10/03/17 11:30 (Sodium Bicarbonate 8.4% Inj) 100 meq UNSCH PRN IV PUSH 10/03/17 11:30 (Duoneb Neb) 1 ampule Q2HR NEB PRN NEB 10/03/17 11:30 (Racepinephrine 2.25% Neb) 0.5 ml UNSCH X1 PRN NEB 10/03/17 11:30 10/04/17 11:29 Cefazolin Sodium 2000 mg/Sodium Chloride 120 ml @ 100 mls/hr Q24H IV 10/04/17 08:00 10/05/17 09:11 10/04/17 07:55 Dobutamine HCl 250 mg/Dextrose 250 ml @ 0 mls/hr Q0M PRN IV 10/04/17 03:00 10/04/17 03:09 Phenylephrine HCl 160 mg/Dextrose 500 ml @ 7.5 mls/hr TITRATE PRN IV 10/04/17 08:45 (Brethine Inj) 1 mg UNSCH PRN SQ 10/04/17 08:45 (Duoneb Neb) 1 ampule Q6HR WHILE AWAKE NEB NEB 10/04/17 14:00 10/06/17 13:59 (Colace) 100 mg BID PO 10/05/17 21:00 (Theragran M Tab) 1 tab DAILY PO 10/04/17 09:00 (Dulcolax Supp) 10 mg UNSCH PRN RECTAL 10/04/17 08:45 (Miralax) 17 gm DAILY PO 10/06/17 09:00 (Senokot) 8.6 mg HS PO 10/05/17 21:00 (Fleets Enema (Adult)) 118 ml UNSCH PRN RECTAL 10/04/17 08:45 (NovoLOG SUPPLEMENTAL SCALE) 1 02,06,10,14,18,22 SQ 10/04/17 10:00 10/05/17 06:01 (D50w (Vial) Inj) 50 ml UNSCH PRN IV PUSH 10/04/17 08:45 (Glucagon Inj) 1 mg UNSCH PRN OTHER 10/04/17 08:45 (NovoLOG SUPPLEMENTAL SCALE) 1 ACHS SQ 10/05/17 08:00 Vital Signs / I&O Vital Signs Date Time Temp Pulse Resp B/P (MAP) Pulse Ox O2 Delivery O2 Flow Rate FiO2 10/04/17 09:21 98 Nasal Cannula 2.00 10/04/17 08:52 98.5 72 18 105/43 99 10/04/17 07:00 66 10/04/17 07:00 98 Nasal Cannula 2.00 10/04/17 07:00 98.5 68 18 94/56 (69) 98 96/42 (60) 10/04/17 06:39 65 91/41 10/04/17 06:20 20 10/04/17 06:00 70 91/52 10/04/17 05:00 67 95/46 10/04/17 04:13 64 10/04/17 04:00 98 Nasal Cannula 2.00 10/04/17 04:00 98.5 66 20 83/49 (60) 98 92/42 (59) 10/04/17 04:00 66 92/42 10/04/17 03:40 99/42 10/04/17 03:24 87/51 10/04/17 03:12 84/49 10/04/17 03:00 66 10/04/17 00:00 96 Nasal Cannula 2.00 10/04/17 00:00 97.3 66 20 97/57 (70) 96 115/63 (80) 10/03/17 23:00 64 10/03/17 22:00 97 Nasal Cannula 2.00 10/03/17 22:00 63 116/73 10/03/17 21:15 98 Nasal Cannula 2.00 10/03/17 21:10 59 110/62 4/9/18 20:00 96.6 50 20 100/60 (73) 99 112/54 (73) 10/03/17 20:00 99 Nasal Cannula 3.00 10/03/17 19:40 56 10/03/17 18:11 58 111/42 10/03/17 17:53 97.9 56 16 121/55 97 10/03/17 17:49 56 115/54 10/03/17 17:38 97.9 57 16 118/57 97 10/03/17 16:38 97.9 52 16 111/48 100 10/03/17 16:25 100 Nasal Cannula 3 10/03/17 15:33 100 40 10/03/17 15:22 51 98/46 10/03/17 15:22 51 98/46 10/03/17 15:00 97.9 50 8 88/49 (62) 99 94/44 (61) 10/03/17 15:00 52 10/03/17 15:00 40 10/03/17 14:23 97.8 49 15 110/50 99 10/03/17 14:12 99 40 10/03/17 12:49 97.3 50 12 104/51 97 10/03/17 12:30 50 10/03/17 12:30 50 10/03/17 12:18 94 50 10/03/17 12:15 97.8 50 12 91/55 (67) 99 113/52 (72) I/O 10/03/17 10/03/17 10/03/17 10/04/17 10/04/17 10/04/17 07:00 15:00 23:00 07:00 15:00 23:00 Intake Total 240 ml 3580 ml 1601 ml 1491 ml Output Total 0 ml 1250 ml 1065 ml 770 ml Balance 240 ml 2330 ml 536 ml 721 ml Intake Oral 240 ml 240 ml IV Total 300 ml 479 ml 1251 ml Autotransfusion 630 ml Packed Cells 400 ml FFP 572 ml Platelets 248 ml Cryoprecipitate 242 ml Blood Product IV Normal Saline Flush 50 ml 60 ml Other 2200 ml Output Urine Total 0 ml 50 ml 215 ml 220 ml Gastric Drainage Total 0 ml Chest Tube Drainage Total 850 ml 550 ml Estimated Blood Loss 1200 ml # Bowel Movements 0 0 Physical Exam GENERAL: NAD, AAOx3 SKIN: Warm and dry. HEAD: Atraumatic. Normocephalic. EYES: Pupils equal and round. No scleral icterus. No injection or drainage. ENT: No nasal bleeding or discharge. Mucous membranes pink and moist. NECK: Trachea midline. No JVD. CARDIOVASCULAR: Regular rate and rhythm. RESPIRATORY: No accessory muscle use. Clear to auscultation. Breath sounds equal bilaterally. GASTROINTESTINAL: Abdomen soft, non-tender, nondistended. Hepatic and splenic margins not palpable. MUSCULOSKELETAL: Extremities without clubbing, cyanosis, or edema. No obvious deformities. Right femoral no hematoma NEUROLOGICAL: No focal deficits Laboratory Laboratory Tests Test 10/03/17 14:10 10/03/17 15:50 10/03/17 17:26 10/04/17 04:35 White Blood Count 10.8 TH/MM3 9.9 TH/MM3 Red Blood Count 2.85 MIL/MM3 2.55 MIL/MM3 Hemoglobin 9.2 GM/DL 8.2 GM/DL Hematocrit 27.4 % 24.4 % Mean Corpuscular Volume 96.0 FL 95.6 FL Mean Corpuscular Hemoglobin 32.4 PG 32.0 PG Mean Corpuscular Hemoglobin Concent 33.8 % 33.5 % Red Cell Distribution Width 18.1 % 17.7 % Platelet Count 158 TH/MM3 135 TH/MM3 Mean Platelet Volume 9.4 FL 9.1 FL Neutrophils (%) (Auto) 84.3 % 88.2 % Lymphocytes (%) (Auto) 5.7 % 3.5 % Monocytes (%) (Auto) 8.8 % 7.6 % Eosinophils (%) (Auto) 0.7 % 0.2 % Basophils (%) (Auto) 0.5 % 0.5 % Neutrophils # (Auto) 9.1 TH/MM3 8.7 TH/MM3 Lymphocytes # (Auto) 0.6 TH/MM3 0.3 TH/MM3 Monocytes # (Auto) 1.0 TH/MM3 0.8 TH/MM3 Eosinophils # (Auto) 0.1 TH/MM3 0.0 TH/MM3 Basophils # (Auto) 0.1 TH/MM3 0.1 TH/MM3 CBC Comment DIFF FINAL DIFF FINAL Differential Comment Prothrombin Time 14.3 SEC 14.2 SEC Prothromb Time International Ratio 1.4 RATIO 1.4 RATIO Activated Partial Thromboplast Time 28.7 SEC 27.2 SEC Fibrinogen 323 mg/dL Blood Urea Nitrogen 69 MG/DL Creatinine 11.16 MG/DL Random Glucose 99 MG/DL Total Protein 5.0 GM/DL Albumin 2.4 GM/DL Calcium Level 8.3 MG/DL Alkaline Phosphatase 60 U/L Aspartate Amino Transf (AST/SGOT) 14 U/L Alanine Aminotransferase (ALT/SGPT) 19 U/L Total Bilirubin 0.4 MG/DL Sodium Level 138 MEQ/L Potassium Level 5.2 MEQ/L Chloride Level 101 MEQ/L Carbon Dioxide Level 25.4 MEQ/L Anion Gap 12 MEQ/L Estimat Glomerular Filtration Rate 5 ML/MIN Magnesium Level 2.5 MG/DL Imaging Last 24 hours Impressions Chest X-Ray 10/04/17 0500 Signed Impressions: Service Date/Time: Wednesday, October 04, 2017 03:30 - CONCLUSION: 1. Status post CABG. 2. Minimal bibasilar densities likely atelectasis. Jaylan Burgos MD Assessment and Plan Problem List: (1) Multi-vessel coronary artery stenosis ICD Codes: I25.10 - Atherosclerotic heart disease of [place] coronary artery without angina pectoris (2) NSTEMI (non-ST elevation myocardial infarction) ICD Codes: I21.4 - Non-ST elevation (NSTEMI) myocardial infarction Status: Acute (3) Ischemic cardiomyopathy ICD Codes: I25.5 - Ischemic cardiomyopathy Status: Chronic (4) ESRD (end stage renal disease) ICD Codes: N18.6 - End stage renal disease Status: Acute (5) DM (diabetes mellitus) ICD Codes: E11.9 - Type 2 diabetes mellitus without complications (6) Hyperlipidemia ICD Codes: E78.5 - Hyperlipidemia, unspecified Status: Chronic (7) HTN (hypertension) ICD Codes: I10 - Essential (primary) hypertension Status: Chronic (8) ESRD on hemodialysis ICD Codes: N18.6 - End stage renal disease; Z99.2 - Dependence on renal dialysis Assessment and Plan 1) Elevated troponin/CAD Restenosis of LM/LAD/LCx stent s/p CABGx2 POD #1 SANDERSON to LAD SVG to OM 2) ESRD on HD 3) EF 50-55% 4) Wean pressors as possible 5) 1 unit PRBC with HD José Antonio May DO Oct 04, 2017 09:41
--- NOTE | 2017-10-04 10:28 | PD.CAR.PN ---
CVT Progress Note Subjective/Hospital Course: 57-year-old patient of Dr. Hernandez who has history of end-stage renal disease , who was last seen by ourselves, Dr. Tim, on 04/13/2017. He is a patient of Dr. Hernandez who at that time was ruled in for a non-STEMI, underwent cardiac catheterization by Dr. Aguilar. At that time, he had a 60% left main, proximal LAD 70-80%, diagonal was 90, the OM was 100, RCA 100. We were consulted at that time and the films were evaluated. He had a very poor ejection fraction with EF of 25% and had very poor targets. He was turned down for cardiovascular surgery. He, however, went under complex Impella support of the left main, LAD and circumflex. He developed restenosis and had a repeat revascularization procedure in 07/2017 involving laser atherectomy, cutting balloon and balloon angioplasty. He has been this time complaining of shortness of breath, substernal discomfort. On admission in the ER, his troponin was 0.74. He has been on Brilinta and Coumadin. He underwent cardiac catheterization by Dr. May, which showed 70% left main, proximal LAD 90%, mid distal LAD 30, diagonal 20%, the circuit was 95%, the OM 30 and the RCA 95%. EF approximately 45% on the cath. He also had an echocardiogram, which showed an EF of 50-55%, some mild LVH, mild mitral regurgitation, trace AI. We were consulted to reevaluate for coronary artery bypass grafting. PAST MEDICAL HISTORY: Includes coronary artery disease with multiple interventions, end-stage renal disease, on dialysis Tuesday, , Tuesday by Dr. Corona, diabetes mellitus, hypertension, hyperlipidemia. HX of Afib was on coumadin at home surgery: 10/03 Urgent Off-pump Coronary Artery Bypass Grafting x 2 with Left Internal Mammary Artery (SANDERSON) to Left Anterior Descending (LAD), reverse saphenous vein graft to the Obtuse Marginal 2 (OM2) branch of the Left Circumflex artery, Left Leg Endoscopic Vein [place], Drainage of Pleural Effusions. EF 35% extubated after surgery crystalloid 2200cc, cell saver, 1200cc EBL 630cc 10/04 , pt had coagulopathy after surgery drained total 1400cc/ 24hrs 550cc/ last 12 hrs , received 1 unit PRBC, 1 unit cryo, 2 units FFP, 1 unit PLT HGB 8.2 remains on dobutamine and pawan gtt will transfuse one unit with dialysis this am no BB, no merrill with labile BP on ASA, plavix, amiodarone will need to resume coumadin when chest tubes out, then dc ASA when INR > 2.0 ( discussed with Dr May ) Objective: GENERAL: A&O x 3 SKIN: Warm and dry. prevena dressing to chest , merrill wrap to left leg HEAD: Normocephalic. EYES: No scleral icterus. No injection or drainage. NECK: Supple, trachea midline. No JVD or lymphadenopathy. CARDIOVASCULAR: Regular rate and rhythm without murmurs, gallops, or rubs. mild edema RESPIRATORY: Breath sounds equal bilaterally. No accessory muscle use. few crackles in bases GASTROINTESTINAL: Abdomen soft, non-tender, nondistended. MUSCULOSKELETAL: No cyanosis, or edema. BACK: Nontender without obvious deformity. No CVA tenderness. Vital Signs Date Time Temp Pulse Resp B/P (MAP) Pulse Ox O2 Delivery O2 Flow Rate FiO2 10/04/17 09:50 98.5 71 18 124/50 97 10/04/17 09:21 98 Nasal Cannula 2.00 10/04/17 08:52 98.5 72 18 105/43 99 10/04/17 07:00 66 10/04/17 07:00 98 Nasal Cannula 2.00 10/04/17 07:00 98.5 68 18 94/56 (69) 98 96/42 (60) 10/04/17 06:39 65 91/41 10/04/17 06:20 20 10/04/17 06:00 70 91/52 10/04/17 05:00 67 95/46 10/04/17 04:13 64 10/04/17 04:00 98 Nasal Cannula 2.00 10/04/17 04:00 98.5 66 20 83/49 (60) 98 92/42 (59) 10/04/17 04:00 66 92/42 10/04/17 03:40 99/42 10/04/17 03:24 87/51 10/04/17 03:12 84/49 10/04/17 03:00 66 10/04/17 00:00 96 Nasal Cannula 2.00 10/04/17 00:00 97.3 66 20 97/57 (70) 96 115/63 (80) 10/03/17 23:00 64 10/03/17 22:00 97 Nasal Cannula 2.00 10/03/17 22:00 63 116/73 10/03/17 21:15 98 Nasal Cannula 2.00 10/03/17 21:10 59 110/62 10/03/17 20:00 96.6 50 20 100/60 (73) 99 112/54 (73) 10/03/17 20:00 99 Nasal Cannula 3.00 10/03/17 19:40 56 10/03/17 18:11 58 111/42 10/03/17 17:53 97.9 56 16 121/55 97 10/03/17 17:49 56 115/54 10/03/17 17:38 97.9 57 16 118/57 97 10/03/17 16:38 97.9 52 16 111/48 100 10/03/17 16:25 100 Nasal Cannula 3 10/03/17 15:33 100 40 10/03/17 15:22 51 98/46 10/03/17 15:22 51 98/46 10/03/17 15:00 97.9 50 8 88/49 (62) 99 94/44 (61) 10/03/17 15:00 52 10/03/17 15:00 40 10/03/17 14:23 97.8 49 15 110/50 99 10/03/17 14:12 99 40 10/03/17 12:49 97.3 50 12 104/51 97 10/03/17 12:30 50 10/03/17 12:30 50 10/03/17 12:18 94 50 10/03/17 12:15 97.8 50 12 91/55 (67) 99 113/52 (72) Labs: Laboratory Tests Test 10/04/17 04:35 White Blood Count 9.9 TH/MM3 (4.0-11.0) Red Blood Count 2.55 MIL/MM3 (4.50-5.90) Hemoglobin 8.2 GM/DL (13.0-17.0) Hematocrit 24.4 % (39.0-51.0) Mean Corpuscular Volume 95.6 FL (80.0-100.0) Mean Corpuscular Hemoglobin 32.0 PG (27.0-34.0) Mean Corpuscular Hemoglobin Concent 33.5 % (32.0-36.0) Red Cell Distribution Width 17.7 % (11.6-17.2) Platelet Count 135 TH/MM3 (150-450) Mean Platelet Volume 9.1 FL (7.0-11.0) Neutrophils (%) (Auto) 88.2 % (16.0-70.0) Lymphocytes (%) (Auto) 3.5 % (9.0-44.0) Monocytes (%) (Auto) 7.6 % (0.0-8.0) Eosinophils (%) (Auto) 0.2 % (0.0-4.0) Basophils (%) (Auto) 0.5 % (0.0-2.0) Neutrophils # (Auto) 8.7 TH/MM3 (1.8-7.7) Lymphocytes # (Auto) 0.3 TH/MM3 (1.0-4.8) Monocytes # (Auto) 0.8 TH/MM3 (0-0.9) Eosinophils # (Auto) 0.0 TH/MM3 (0-0.4) Basophils # (Auto) 0.1 TH/MM3 (0-0.2) CBC Comment DIFF FINAL Differential Comment Prothrombin Time 14.2 SEC (9.8-11.6) Prothromb Time International Ratio 1.4 RATIO Activated Partial Thromboplast Time 27.2 SEC (24.3-30.1) Blood Urea Nitrogen 69 MG/DL (7-18) Creatinine 11.16 MG/DL (0.60-1.30) Random Glucose 99 MG/DL (74-106) Total Protein 5.0 GM/DL (6.4-8.2) Albumin 2.4 GM/DL (3.4-5.0) Calcium Level 8.3 MG/DL (8.5-10.1) Alkaline Phosphatase 60 U/L (45-117) Aspartate Amino Transf (AST/SGOT) 14 U/L (15-37) Alanine Aminotransferase (ALT/SGPT) 19 U/L (12-78) Total Bilirubin 0.4 MG/DL (0.2-1.0) Sodium Level 138 MEQ/L (136-145) Potassium Level 5.2 MEQ/L (3.5-5.1) Chloride Level 101 MEQ/L (98-107) Carbon Dioxide Level 25.4 MEQ/L (21.0-32.0) Anion Gap 12 MEQ/L (5-15) Estimat Glomerular Filtration Rate 5 ML/MIN (>89) Magnesium Level 2.5 MG/DL (1.5-2.5) Result Diagram: 10/04/17 0435 10/04/17 0435 (1) Multi-vessel coronary artery stenosis (2) NSTEMI (non-ST elevation myocardial infarction) (3) S/P CABG x 2 Plan: on ASA, plavix , amiodarone, statin no BB or merrill with labile BP OOB as tolerated Keep in ICU today CM to eval for rehab at discharge (4) Ischemic cardiomyopathy Plan: EF 35% , start MERRILL when BP tolerates (5) ESRD (end stage renal disease) Plan: on dialysis today (6) DM (diabetes mellitus) Plan: insulin sliding scale add bid levemir (7) Hyperlipidemia Plan: ass statin (8) HTN (hypertension) (9) Blood loss anemia Plan: transfuse one unit PRBC with dialysis this am Lottie Monteiro Oct 04, 2017 10:28
[2017-10-04] MEDS: AMIODARONE 200 MG TAB PO SCH ×2 (12:37→20:45)
[2017-10-04] MEDS: BENZONATATE 100 MG CAP PO PRN (12:37)
[2017-10-04] MEDS: CLOPIDOGREL 75 MG TAB PO SCH (12:37)
[2017-10-04] MEDS: MULTIVITAMINS/MINERALS THERAPEUTIC TAB PO SCH (12:37)
[2017-10-04] MEDS: GABAPENTIN 100 MG CAP PO SCH ×3 (12:38→18:29)
[2017-10-04] MEDS: ASPIRIN 81 MG CHEW TAB PO SCH (12:38)
[2017-10-04] MEDS: DOCUSATE SODIUM 50 MG/SENNA 8.6 MG TAB PO SCH ×2 (12:38→20:44)
[2017-10-04] MEDS: CALCIUM ACETATE 667 MG CAP PO SCH ×2 (12:38→12:59)
--- NOTE | 2017-10-04 14:55 | HHI.NPPN ---
Subjective General Problems: Anemia, Edema, Heart Disease, Hypertension Renal Failure: End Stage Renal Disease History of Present Illness 57-year-old male with past medical history of ischemic heart disease, hypertension, cardiomyopathy, end-stage renal disease, on hemodialysis 3 times per week, diabetes mellitus, came to the hospital with a complaint of recurrent chest pain. I was called to see the patient because of management of dialysis. The patient has a known history of ischemic heart disease and congestive heart failure. Additional Remarks Patient is resting comfortable, family at bedside. (Racquel Hooks) Review of Systems General Constitutional: Fatigue (Racquel Hooks) Respiratory Respiratory Remarks No SOB (Racquel Hooks) Cardiovascular Cardiac: AUGUSTINE (Racquel Hooks) Gastrointestinal GI Remarks Denies any abdominal pain (Racquel Hooks) Objective Data Data 10/04/17 10/05/17 19:00 07:00 Intake Total 400 ml Output Total 3000 ml Balance -2600 ml Packed Cells 400 ml Hemodialysis 3000 ml Vital Signs Date Time Temp Pulse Resp B/P (MAP) Pulse Ox O2 Delivery O2 Flow Rate FiO2 10/04/17 11:00 98.3 72 18 136/81 (99) 98 135/49 (77) 10/04/17 11:00 72 10/04/17 11:00 98 Nasal Cannula 2.00 10/04/17 09:50 98.5 71 18 124/50 97 10/04/17 09:21 98 Nasal Cannula 2.00 10/04/17 08:52 98.5 72 18 105/43 99 10/04/17 07:00 66 10/04/17 07:00 98 Nasal Cannula 2.00 10/04/17 07:00 98.5 68 18 94/56 (69) 98 96/42 (60) 10/04/17 06:39 65 91/41 10/04/17 06:20 20 10/04/17 06:00 70 91/52 10/04/17 05:00 67 95/46 10/04/17 04:13 64 10/04/17 04:00 98 Nasal Cannula 2.00 10/04/17 04:00 98.5 66 20 83/49 (60) 98 92/42 (59) 10/04/17 04:00 66 92/42 10/04/17 03:40 99/42 10/04/17 03:24 87/51 10/04/17 03:12 84/49 10/04/17 03:00 66 10/04/17 00:00 96 Nasal Cannula 2.00 10/04/17 00:00 97.3 66 20 97/57 (70) 96 115/63 (80) 10/03/17 23:00 64 10/03/17 22:00 97 Nasal Cannula 2.00 10/03/17 22:00 63 116/73 10/03/17 21:15 98 Nasal Cannula 2.00 10/03/17 21:10 59 110/62 10/03/17 20:00 96.6 50 20 100/60 (73) 99 112/54 (73) 10/03/17 20:00 99 Nasal Cannula 3.00 10/03/17 19:40 56 10/03/17 18:11 58 111/42 10/03/17 17:53 97.9 56 16 121/55 97 10/03/17 17:49 56 115/54 10/03/17 17:38 97.9 57 16 118/57 97 10/03/17 16:38 97.9 52 16 111/48 100 10/03/17 16:25 100 Nasal Cannula 3 10/03/17 15:33 100 40 10/03/17 15:22 51 98/46 10/03/17 15:22 51 98/46 10/03/17 15:00 97.9 50 8 88/49 (62) 99 94/44 (61) 10/03/17 15:00 52 10/03/17 15:00 40 (Racquel Hooks) -: 10/04/17 0435 10/04/17 0435 Imaging Last Impressions Chest X-Ray 10/04/17 0500 Signed Impressions: Service Date/Time: Wednesday, October 04, 2017 03:30 - CONCLUSION: 1. Status post CABG. 2. Minimal bibasilar densities likely atelectasis. Jaylan Burgos MD Lower Extremity Ultrasound 09/30/17 0000 Signed Impressions: Service Date/Time: Saturday, September 30, 2017 15:06 - CONCLUSION: 1. Possible old , mural nonocclusive thrombus in the proximal right greater saphenous vein. 2. Otherwise, greater saphenous veins are patent bilaterally with measurements as above. Lloyd Rodríguez MD (Racquel Hooks) Physical Exam General Appearance: No Acute Distress, Comfortable (GellerRacquel purvis. ANALYST GEOCHEMICAL PROSPECTING) Eyes Eye Exam: Pupils Equal (Racquel Hooks. ANALYST GEOCHEMICAL PROSPECTING) Throat Throat Exam: Oral Mucosa [place] & Moist (Racquel Hooks ANALYST GEOCHEMICAL PROSPECTING) Neck Neck Exam: Neck Supple (FedelerRacquel purvis ANALYST GEOCHEMICAL PROSPECTING) Pulmonary Resp Exam: Breath Sounds Equal, No Distress, Decreased Bases (FedelerRacquel purvis. ANALYST GEOCHEMICAL PROSPECTING) Cardiology CV Exam: Regular, Normal Sinus Rhythm (Racquel HooksP) Gastrointestinal/Abdomen GI Exam: Soft, Non-Tender, Bowel Sounds Present (Racquel Hooks ANALYST GEOCHEMICAL PROSPECTING) Integumentary Skin Exam: Clear, Warm (Racquel Hooks ANALYST GEOCHEMICAL PROSPECTING) Extremeties Extremities Exam: Trace Edema (Racquel HooksP) Neurologic Neuro Exam: Alert, Awake, Oriented (Racquel HooksP) Psychiatric Psych Exam: Appropriate Responses (Racquel Hooks) Assessment/Plan Discussed Condition With: Daughter Assessment Summary: Anemia of CKD, CHF, Hypertension, End Stage Renal Disease Problem List: (1) ESRD on hemodialysis ICD Codes: N18.6 - End stage renal disease; Z99.2 - Dependence on renal dialysis Plan: ESRD HD on / Patient has significant IHD and has low EF. S/P heart cath found to have restenosis of his complex PCI cardiac surgery consulted S/P CABG 10/03/17 X 2 Plan Continue phoslo Epogen added with dialysis On pressors for blood pressure support wean as tolerated. HD this morning with UD of 3 liters tolerated well (2) DM (diabetes mellitus) ICD Codes: E11.9 - Type 2 diabetes mellitus without complications (3) Ischemic cardiomyopathy ICD Codes: I25.5 - Ischemic cardiomyopathy Status: Chronic (4) NSTEMI (non-ST elevation myocardial infarction) ICD Codes: I21.4 - Non-ST elevation (NSTEMI) myocardial infarction Status: Acute (5) Hyperlipidemia ICD Codes: E78.5 - Hyperlipidemia, unspecified Status: Chronic (6) Anemia ICD Codes: D64.9 - Anemia, unspecified Status: Chronic (7) HTN (hypertension) ICD Codes: I10 - Essential (primary) hypertension Status: Chronic (8) Multi-vessel coronary artery stenosis ICD Codes: I25.10 - Atherosclerotic heart disease of [place] coronary artery without angina pectoris Plan (Racquel Hooks) Problem List: (1) ESRD on hemodialysis ICD Codes: N18.6 - End stage renal disease; Z99.2 - Dependence on renal dialysis Plan: ESRD HD on T//TUE Patient has significant IHD and has low EF. S/P heart cath found to have restenosis of his complex PCI cardiac surgery consulted S/P CABG 10/03/17 X 2 Plan Continue phoslo Epogen added with dialysis On pressors for blood pressure support wean as tolerated. HD this morning with UD of 3 liters tolerated well. Patient seen and examined, agree with above. HD done, doing better. CT removal as per Cardiovascular surgery. (2) DM (diabetes mellitus) ICD Codes: E11.9 - Type 2 diabetes mellitus without complications (3) Ischemic cardiomyopathy ICD Codes: I25.5 - Ischemic cardiomyopathy Status: Chronic (4) NSTEMI (non-ST elevation myocardial infarction) ICD Codes: I21.4 - Non-ST elevation (NSTEMI) myocardial infarction Status: Acute (5) Hyperlipidemia ICD Codes: E78.5 - Hyperlipidemia, unspecified Status: Chronic (6) Anemia ICD Codes: D64.9 - Anemia, unspecified Status: Chronic (7) HTN (hypertension) ICD Codes: I10 - Essential (primary) hypertension Status: Chronic (8) Multi-vessel coronary artery stenosis ICD Codes: I25.10 - Atherosclerotic heart disease of [place] coronary artery without angina pectoris (Jeana Corona MD) Racquel Hooks Oct 04, 2017 14:55 Jeana Corona MD Oct 04, 2017 17:42
[2017-10-04 17:00] LABS: HEMOGLOBIN A1C 7.2 % (4.3-6.0)
--- NOTE | 2017-10-04 17:17 | HHI.PR ---
Subjective Remarks Patient sitting on the chair, on O2 nasal cannula, still on dobutamine and Kb- Synephrine drip 2 chest tube still draining Reported mild chest soreness from the surgery otherwise no acute issue Afebrile overnight Objective Vitals Vital Signs Date Time Temp Pulse Resp B/P (MAP) Pulse Ox O2 Delivery O2 Flow Rate FiO2 10/04/17 15:35 73 110/52 10/04/17 15:00 77 10/04/17 15:00 97 Nasal Cannula 2.00 10/04/17 15:00 98.3 76 16 101/70 (80) 97 70/59 (63) 10/04/17 11:00 98.3 72 18 136/81 (99) 98 135/49 (77) 10/04/17 11:00 72 10/04/17 11:00 98 Nasal Cannula 2.00 10/04/17 09:50 98.5 71 18 124/50 97 10/04/17 09:21 98 Nasal Cannula 2.00 10/04/17 08:52 98.5 72 18 105/43 99 10/04/17 07:00 66 10/04/17 07:00 98 Nasal Cannula 2.00 10/04/17 07:00 98.5 68 18 94/56 (69) 98 96/42 (60) 10/04/17 06:39 65 91/41 10/04/17 06:20 20 10/04/17 06:00 70 91/52 10/04/17 05:00 67 95/46 10/04/17 04:13 64 10/04/17 04:00 98 Nasal Cannula 2.00 10/04/17 04:00 98.5 66 20 83/49 (60) 98 92/42 (59) 10/04/17 04:00 66 92/42 10/04/17 03:40 99/42 10/04/17 03:24 87/51 10/04/17 03:12 84/49 10/04/17 03:00 66 10/04/17 00:00 96 Nasal Cannula 2.00 10/04/17 00:00 97.3 66 20 97/57 (70) 96 115/63 (80) 10/03/17 23:00 64 10/03/17 22:00 97 Nasal Cannula 2.00 10/03/17 22:00 63 116/73 10/03/17 21:15 98 Nasal Cannula 2.00 10/03/17 21:10 59 110/62 10/03/17 20:00 96.6 50 20 100/60 (73) 99 112/54 (73) 10/03/17 20:00 99 Nasal Cannula 3.00 10/03/17 19:40 56 10/03/17 18:11 58 111/42 10/03/17 17:53 97.9 56 16 121/55 97 10/03/17 17:49 56 115/54 10/03/17 17:38 97.9 57 16 118/57 97 I/O 10/03/17 10/03/17 10/03/17 10/04/17 10/04/17 10/04/17 07:00 15:00 23:00 07:00 15:00 23:00 Intake Total 240 ml 3580 ml 1601 ml 1491 ml 400 ml Output Total 0 ml 1250 ml 1065 ml 770 ml 3000 ml Balance 240 ml 2330 ml 536 ml 721 ml -2600 ml Intake Oral 240 ml 240 ml IV Total 300 ml 479 ml 1251 ml Autotransfusion 630 ml Packed Cells 400 ml 400 ml FFP 572 ml Platelets 248 ml Cryoprecipitate 242 ml Blood Product IV Normal Saline Flush 50 ml 60 ml Other 2200 ml Output Urine Total 0 ml 50 ml 215 ml 220 ml Gastric Drainage Total 0 ml Chest Tube Drainage Total 850 ml 550 ml Hemodialysis 3000 ml Estimated Blood Loss 1200 ml # Bowel Movements 0 0 Result Diagram: 10/04/17 0435 10/04/17 0435 Objective Remarks GENERAL: This is a well-nourished, well-developed patient, under sedation postop SKIN: No rashes, warm and dry HEAD: Atraumatic. Normocephalic. EYES: Pupils equal round and reactive. Extraocular motions intact. No scleral icterus. ENT: Nose without bleeding, or drainage, Airway patent. NECK: Trachea midline. Supple CARDIOVASCULAR: Regular rate and rhythm without murmurs, gallops, or rubs. Chest tube in place, RESPIRATORY: Fair air entry bilaterally. No wheezes, rales, or rhonchi. GASTROINTESTINAL: Abdomen soft, non-tender, nondistended. Positive bowel sounds MUSCULOSKELETAL: Extremities without clubbing, cyanosis, or edema. Pedal pulses appreciated NEUROLOGICAL: Under sedation postop Procedures Hemodialysis 4-5 cardiac catheterization Post-cath, found to have restenosis of LM/LAD/LCx stent --cardio vascular surgery has been consulted DATE OF PROCEDURE: 09/29/2017. PROCEDURE: Left heart catheterization, coronary angiogram, moderate sedation 25 minutes, Vascade femoral closure. PREPROCEDURE DIAGNOSES: Ojo-[id number] myocardial infarction, coronary artery disease. POSTPROCEDURE DIAGNOSIS: Coronary artery disease, restenosis of left main/left anterior descending/left circumflex stents. MEDICATIONS: Versed 0.5 mg, fentanyl 25 mcg. CONTRAST USED: 35 mL FLUOROSCOPY: 1.2 minutes. MODERATE SEDATION: 25 minutes. ESTIMATED BLOOD LOSS: 10 mL. PROCEDURAL SUMMARY: Dandy Singleton is a pleasant 57-year-old male whom I see in the office and presented to [facility] due to chest pain. He was found to have an elevated troponin and recommended cardiac catheterization. Risks, benefits and alternatives were explained to him and he consented to such. He was brought to the lab and prepped in the usual sterile fashion. Left femoral artery was accessed using modified Seldinger technique and placement of a 5-Thai sheath. This was easily aspirated and flushed. A JR4 was advanced over a J-wire to the ascending aorta and across the aortic valve for measurement of left ventricular pressure. This was pulled back across the aortic valve, showing no significant gradient of aortic stenosis. The JR4 was used for selective angiography of the right coronary artery system. This was then exchanged for a JL4, which was used for selective angiography of the left coronary artery system. The JL4 was removed over a J-wire. Vascade femoral closure device was used for the arteriotomy. The patient left the catheterization laboratory technician cardiovascularly stable. FINDINGS: Left main stent patent with 70% in-stent restenosis. It bifurcates into an LAD and circumflex. LAD stent and the stent from the left main into the LAD has a 90% in-stent restenosis. Mid to distal stent is patent. Distally, the vessel has diffuse 30% disease. Left circumflex stent from left main into left circumflex has a 95% restenosis. Stent in the mid portion is patent with no significant disease. It gives off 2 obtuse marginals with no significant disease. RCA is a normal size vessel with 30% disease throughout the proximal portion. Distally, the vessel is diffusely diseased of 80% to 90% throughout with subtotal occlusions. LVEDP 30. IMPRESSION: 1. Non-ST elevation myocardial infarction. 2. Coronary artery disease with complex percutaneous coronary intervention of left main, left anterior descending and left circumflex previously. RECOMMENDATIONS: 1. Mr. Singleton presented again with an elevated troponin and once again was found to have restenosis of his complex PCI. 2. As the last time I attempted to use laser arthrectomy and cutting balloons and still had restenosis, as well as now the vessels have increased in size distally due to better flow, I think that he should undergo consideration of coronary artery bypass grafting. 3. I have discussed this with CT surgery and they will see him in consultation. 4. Due to the significance of his disease, he will be placed on a heparin drip 5 hours after sheath was removed. 5. We will plan on rechecking an echo to look at his overall left ventricular function in anticipation of coronary artery bypass grafting. 6. His Brilinta will be held for anticipated coronary artery bypass grafting. 7. If at any time he has significant chest pain or becomes hemodynamically or electrically unstable, he will be taken back to the catheterization laboratory technician emergently for placement of intraaortic balloon pump. 8. We will plan on having him undergo hemodialysis after cardiac catheterization. Thank you for allowing me to see Dandy Singleton. If there are any questions, please do not hesitate to call. A/P Problem List: (1) NSTEMI (non-ST elevation myocardial infarction) ICD Code: I21.4 - Non-ST elevation (NSTEMI) myocardial infarction Status: Acute (2) Ischemic cardiomyopathy ICD Code: I25.5 - Ischemic cardiomyopathy Status: Chronic (3) ESRD (end stage renal disease) ICD Code: N18.6 - End stage renal disease Status: Acute (4) DM (diabetes mellitus) ICD Code: E11.9 - Type 2 diabetes mellitus without complications Assessment and Plan Non-STEMI coronary artery disease multiple vessels Restenosis of LM/LAD/LCx stent s/p CABGx2 POD #1 SANDERSON to LAD SVG to OM status post CABG Ischemic cardiomyopathy EF 55% Diabetes mellitus ESRD on hemodialysis DVT prophylaxis Plan: Status post CABG today patient still under sedation, do chest tube, on dopamine and Kb-Synephrine drip, CVS following Postop management. Insulin drip to switch to Accu-Chek with ISS per surgery team Appreciate nephrology follow-up, for hemodialysis On heparin drip Close monitoring under telemetry, Repeat CBC BMP in a.m., Lencho No MD Oct 04, 2017 17:16
[2017-10-04] MEDS: oxyCODONE/ACETAMINOPHEN 5 MG/325 MG TAB PO PRN (18:33)
[2017-10-04] MEDS: ATORVASTATIN 40 MG TAB PO SCH (20:44)
[2017-10-05] VITALS (8 sets, daily range): BP systolic 104–120; BP diastolic 53–69; PULSE 68–82; RESP 18–22; TEMP 97.7–98.5; O2SAT 97–99
[2017-10-05] MEDS: INSULIN ASPART SUPPLEMENTAL SCALE SQ SCH ×6 (02:00→21:00)
[2017-10-05 05:08] LABS: AUTOMATED NEUTROPHIL # 8.8 TH/MM3 (1.8-7.7); BASOPHIL # 0.1 TH/MM3 (0-0.2); BASOPHIL % 0.5 % (0.0-2.0); EOSINOPHIL # 0.1 TH/MM3 (0-0.4); EOSINOPHIL % 0.8 % (0.0-4.0); HEMATOCRIT 28.3 % (39.0-51.0); HEMOGLOBIN 9.5 GM/DL (13.0-17.0); LYMPH % 6.4 % (9.0-44.0); LYMPHOCYTE # 0.7 TH/MM3 (1.0-4.8); MEAN CELL VOLUME 95.1 FL (80.0-100.0); MEAN CORPUSCULAR HGB CONC 33.6 % (32.0-36.0); MEAN PLATELET VOLUME 9.2 FL (7.0-11.0); MONO % 12.2 % (0.0-8.0); MONOCYTE # 1.3 TH/MM3 (0-0.9); NEUT % 80.1 % (16.0-70.0); PLATELET COUNT 161 TH/MM3 (150-450); RED BLOOD COUNT 2.98 MIL/MM3 (4.50-5.90); RED CELL DISTRIBUTION WIDTH 17.6 % (11.6-17.2)
[2017-10-05 05:22] LABS: INTERNATIONAL NORMALIZED RATIO 1.4 RATIO; PROTHROMBIN TIME - PATIENT 14.5 SEC (9.8-11.6)
[2017-10-05 05:49] LABS: BICARBONATE 29.5 MEQ/L (21.0-32.0); CALCIUM 8.2 MG/DL (8.5-10.1); CREATININE 8.95 MG/DL (0.60-1.30); MAGNESIUM 2.4 MG/DL (1.5-2.5)
[2017-10-05] MEDS: PANTOPRAZOLE SOD 40 MG DELAYED RELEASE TAB PO SCH (06:00)
[2017-10-05] MEDS: RESP: ALBUTEROL 2.5 MG/IPRATROPIUM 0.5 MG NEB (SCH) NEB ×3 (07:36→19:44)
[2017-10-05] MEDS: MULTIVITAMINS/MINERALS THERAPEUTIC TAB PO SCH ×2 (08:32→09:30)
[2017-10-05] MEDS: DOCUSATE SODIUM 50 MG/SENNA 8.6 MG TAB PO SCH (08:32)
[2017-10-05] MEDS: GABAPENTIN 100 MG CAP PO SCH ×3 (08:32→17:30)
[2017-10-05] MEDS: CLOPIDOGREL 75 MG TAB PO SCH (08:32)
[2017-10-05] MEDS: ASPIRIN 81 MG CHEW TAB PO SCH (08:32)
[2017-10-05] MEDS: CALCIUM ACETATE 667 MG CAP PO SCH ×3 (08:32→17:30)
[2017-10-05] MEDS: ACETAMINOPHEN/HYDROcodone 325 MG/5 MG TAB PO PRN ×3 (08:33→17:46)
[2017-10-05] MEDS: AMIODARONE 200 MG TAB PO SCH ×2 (08:33→20:45)
[2017-10-05] MEDS: CARVEDILOL 12.5 MG TAB PO SCH (08:41)
[2017-10-05] MEDS: SODIUM CHLORIDE 0.9% FLUSH 10 ML FLUSH IV FLUSH SCH ×2 (08:42→20:46)
[2017-10-05] MEDS: CEFAZOLIN INJ 2,000 MG in SODIUM CHLORIDE 0.9% INJ 100 ML IV SCH (08:51)
--- NOTE | 2017-10-05 09:27 | RSPPFT ---
DATE OF PROCEDURE: 10/02/17 COMMENTS: Spirometry with FVC of 2.6, FEV1 of 1.6, FEV1/FVC ratio at 63%. IMPRESSION: 1. Moderately severe airways obstruction. 2. Post-bronchodilator study was not performed.
[2017-10-05] MEDS ORDERED: BISACODYL 10 MG SUPP RECTAL PRN (09:30)
[2017-10-05] MEDS ORDERED: GLUCAGON 1 MG/ML VIAL OTHER PRN (09:30)
[2017-10-05] MEDS ORDERED: DEXTROSE 50% IN WATER 50 ML VIAL(D50) IV PUSH PRN (09:30)
[2017-10-05] MEDS ORDERED: SOD PHOSPHATE/SOD BIPHOSPHATE (ADULT) ENEMA 133ML RECTAL PRN (09:30)
[2017-10-05] MEDS: MIDODRINE 5 MG TAB PO SCH ×3 (10:19→17:46)
--- NOTE | 2017-10-05 16:30 | HHI.PR ---
Subjective Remarks Follow-up for coronary artery disease status post CABG Patient sitting on the chair doing better today blood pressure stable off the dobutamine and Kb-Synephrine drip Son at the bedside discussed with the nurse continue current care, no fever, no event overnight, chest tube [address] Objective Vitals Vital Signs Date Time Temp Pulse Resp B/P (MAP) Pulse Ox O2 Delivery O2 Flow Rate FiO2 10/05/17 15:30 16 10/05/17 15:00 97 Nasal Cannula 2.00 10/05/17 15:00 97.8 74 18 107/68 (81) 97 Arterial Line 10/05/17 15:00 73 10/05/17 11:00 68 10/05/17 11:00 97 Nasal Cannula 2.00 10/05/17 11:00 98.1 68 18 104/62 (76) 97 105/53 (70) 10/05/17 08:00 98 Nasal Cannula 2.00 10/05/17 08:00 68 10/05/17 08:00 97.7 82 18 111/64 (80) 99 117/64 (81) 10/05/17 07:36 97 Nasal Cannula 2.00 10/05/17 05:00 76 123/74 10/05/17 03:00 98.5 71 22 120/60 (80) 97 117/59 (78) 10/05/17 03:00 71 10/05/17 03:00 97 Nasal Cannula 2.00 10/04/17 23:00 97 Nasal Cannula 2.00 10/04/17 23:00 98.8 78 18 82/59 (67) 97 94/87 (89) 10/04/17 23:00 78 10/04/17 20:31 99 Nasal Cannula 2.00 10/04/17 19:35 18 10/04/17 19:00 99 Nasal Cannula 2.00 10/04/17 19:00 76 10/04/17 19:00 98.6 76 18 115/75 (88) 99 116/59 (78) I/O 10/04/17 10/04/17 10/04/17 10/05/17 10/05/17 10/05/17 07:00 15:00 23:00 07:00 15:00 23:00 Intake Total 1491 ml 523 ml 1148 ml 479 ml 120 ml Output Total 770 ml 3000 ml 250 ml 160 ml Balance 721 ml -2477 ml 898 ml 319 ml 120 ml Intake Oral 240 ml 480 ml 200 ml IV Total 1251 ml 123 ml 668 ml 279 ml 120 ml Packed Cells 400 ml Output Urine Total 220 ml 0 ml 0 ml Gastric Drainage Total 0 ml Chest Tube Drainage Total 550 ml 250 ml 160 ml Hemodialysis 3000 ml # Bowel Movements 0 0 0 Result Diagram: 10/05/1742910/05/17429 Objective Remarks GENERAL: This is a well-nourished, well-developed patient, under sedation postop SKIN: No rashes, warm and dry HEAD: Atraumatic. Normocephalic. EYES: Pupils equal round and reactive. Extraocular motions intact. No scleral icterus. ENT: Nose without bleeding, or drainage, Airway patent. NECK: Trachea midline. Supple CARDIOVASCULAR: Regular rate and rhythm without murmurs, gallops, or rubs. Chest tube in place, RESPIRATORY: Fair air entry bilaterally. No wheezes, rales, or rhonchi. GASTROINTESTINAL: Abdomen soft, non-tender, nondistended. Positive bowel sounds MUSCULOSKELETAL: Extremities without clubbing, cyanosis, or edema. Pedal pulses appreciated NEUROLOGICAL: Under sedation postop Procedures Hemodialysis 4-5 cardiac catheterization Post-cath, found to have restenosis of LM/LAD/LCx stent --cardio vascular surgery has been consulted DATE OF PROCEDURE: 09/29/2017. PROCEDURE: Left heart catheterization, coronary angiogram, moderate sedation 25 minutes, Vascade femoral closure. PREPROCEDURE DIAGNOSES: Lmo-AP-evtvycpra myocardial infarction, coronary artery disease. POSTPROCEDURE DIAGNOSIS: Coronary artery disease, restenosis of left main/left anterior descending/left circumflex stents. MEDICATIONS: Versed 0.5 mg, fentanyl 25 mcg. CONTRAST USED: 35 mL FLUOROSCOPY: 1.2 minutes. MODERATE SEDATION: 25 minutes. ESTIMATED BLOOD LOSS: 10 mL. PROCEDURAL SUMMARY: Dandy Singleton is a pleasant 57-year-old male whom I see in the office and presented to [facility] due to chest pain. He was found to have an elevated troponin and recommended cardiac catheterization. Risks, benefits and alternatives were explained to him and he consented to such. He was brought to the lab and prepped in the usual sterile fashion. Left femoral artery was accessed using modified Seldinger technique and placement of a 5-[place] sheath. This was easily aspirated and flushed. A JR4 was advanced over a J-wire to the ascending aorta and across the aortic valve for measurement of left ventricular pressure. This was pulled back across the aortic valve, showing no significant gradient of aortic stenosis. The JR4 was used for selective angiography of the right coronary artery system. This was then exchanged for a JL4, which was used for selective angiography of the left coronary artery system. The JL4 was removed over a J-wire. Vascade femoral closure device was used for the arteriotomy. The patient left the laboratory supervisor cardiovascularly stable. FINDINGS: Left main stent patent with 70% in-stent restenosis. It bifurcates into an LAD and circumflex. LAD stent and the stent from the left main into the LAD has a 90% in-stent restenosis. Mid to distal stent is patent. Distally, the vessel has diffuse 30% disease. Left circumflex stent from left main into left circumflex has a 95% restenosis. Stent in the mid portion is patent with no significant disease. It gives off 2 obtuse marginals with no significant disease. RCA is a normal size vessel with 30% disease throughout the proximal portion. Distally, the vessel is diffusely diseased of 80% to 90% throughout with subtotal occlusions. LVEDP 30. IMPRESSION: 1. Non-ST elevation myocardial infarction. 2. Coronary artery disease with complex percutaneous coronary intervention of left main, left anterior descending and left circumflex previously. RECOMMENDATIONS: 1. Mr. Singleton presented again with an elevated troponin and once again was found to have restenosis of his complex PCI. 2. As the last time I attempted to use laser arthrectomy and cutting balloons and still had restenosis, as well as now the vessels have increased in size distally due to better flow, I think that he should undergo consideration of coronary artery bypass grafting. 3. I have discussed this with CT surgery and they will see him in consultation. 4. Due to the significance of his disease, he will be placed on a heparin drip 5 hours after sheath was removed. 5. We will plan on rechecking an echo to look at his overall left ventricular function in anticipation of coronary artery bypass grafting. 6. His Brilinta will be held for anticipated coronary artery bypass grafting. 7. If at any time he has significant chest pain or becomes hemodynamically or electrically unstable, he will be taken back to the laboratory supervisor emergently for placement of intraaortic balloon pump. 8. We will plan on having him undergo hemodialysis after cardiac catheterization. Thank you for allowing me to see Dandy Singleton. If there are any questions, please do not hesitate to call. A/P Problem List: (1) NSTEMI (non-ST elevation myocardial infarction) ICD Code: I21.4 - Non-ST elevation (NSTEMI) myocardial infarction Status: Acute (2) Ischemic cardiomyopathy ICD Code: I25.5 - Ischemic cardiomyopathy Status: Chronic (3) ESRD (end stage renal disease) ICD Code: N18.6 - End stage renal disease Status: Acute (4) DM (diabetes mellitus) ICD Code: E11.9 - Type 2 diabetes mellitus without complications Assessment and Plan Non-STEMI coronary artery disease multiple vessels Restenosis of LM/LAD/LCx stent s/p CABGx2 POD #1 SANDERSON to LAD SVG to OM status post CABG Ischemic cardiomyopathy EF 55% Diabetes mellitus ESRD on hemodialysis DVT prophylaxis Plan: Status post CABG 4/9 doing well, off pressors, [address] CVS following Postop management. Insulin drip to switch to Accu-Chek with ISS per surgery team Appreciate nephrology follow-up, for hemodialysis creatinine improved from 11.16 -8.95 On heparin drip Close monitoring under telemetry, Repeat CBC BMP in a.m., Lencho No MD Oct 05, 2017 16:30
--- NOTE | 2017-10-05 16:44 | PD.CAR.PN ---
CVT Progress Note Subjective/Hospital Course: 57-year-old patient of Dr. Hernandez who has history of end-stage renal disease , who was last seen by ourselves, Dr. Tim, on 04/13/2017. He is a patient of Dr. Hernandez who at that time was ruled in for a non-STEMI, underwent cardiac catheterization by Dr. Aguilar. At that time, he had a 60% left main, proximal LAD 70-80%, diagonal was 90, the OM was 100, RCA 100. We were consulted at that time and the films were evaluated. He had a very poor ejection fraction with EF of 25% and had very poor targets. He was turned down for cardiovascular surgery. He, however, went under complex Impella support of the left main, LAD and circumflex. He developed restenosis and had a repeat revascularization procedure in 07/2017 involving laser atherectomy, cutting balloon and balloon angioplasty. He has been this time complaining of shortness of breath, substernal discomfort. On admission in the ER, his troponin was 0.74. He has been on Brilinta and Coumadin. He underwent cardiac catheterization by Dr. May, which showed 70% left main, proximal LAD 90%, mid distal LAD 30, diagonal 20%, the circuit was 95%, the OM 30 and the RCA 95%. EF approximately 45% on the cath. He also had an echocardiogram, which showed an EF of 50-55%, some mild LVH, mild mitral regurgitation, trace AI. We were consulted to reevaluate for coronary artery bypass grafting. PAST MEDICAL HISTORY: Includes coronary artery disease with multiple interventions, end-stage renal disease, on dialysis Tuesday, , Tuesday by Dr. Corona, diabetes mellitus, hypertension, hyperlipidemia. HX of Afib was on coumadin at home surgery: 10/03 Urgent Off-pump Coronary Artery Bypass Grafting x 2 with Left Internal Mammary Artery (SANDERSON) to Left Anterior Descending (LAD), reverse saphenous vein graft to the Obtuse Marginal 2 (OM2) branch of the Left Circumflex artery, Left Leg Endoscopic Vein [place], Drainage of Pleural Effusions. EF 35% extubated after surgery crystalloid 2200cc, cell saver, 1200cc EBL 630cc 10/04 , pt had coagulopathy after surgery drained total 1400cc/ 24hrs 550cc/ last 12 hrs , received 1 unit PRBC, 1 unit cryo, 2 units FFP, 1 unit PLT HGB 8.2 remains on dobutamine and kb gtt will transfuse one unit with dialysis this am no BB, no merrill with labile BP on ASA, plavix, amiodarone will need to resume coumadin when chest tubes out, then dc plavix when INR > 2.0 10/05 for dialysis in am , weaned off Kb gtt/ started on midorine wean 02 , will need rehab at discharge OOB/ PT leave chest tubes in / drained 160cc/ 12hrs leave in ICU today Objective: GENERAL: A&O x 3 SKIN: Warm and dry. prevena dressing to chest HEAD: Normocephalic. EYES: No scleral icterus. No injection or drainage. NECK: Supple, trachea midline. No JVD or lymphadenopathy. CARDIOVASCULAR: Regular rate and rhythm without murmurs, gallops, or rubs. mild general edema RESPIRATORY: Breath sounds equal bilaterally. No accessory muscle use. few crackles in bases GASTROINTESTINAL: Abdomen soft, non-tender, nondistended. MUSCULOSKELETAL: No cyanosis, or edema. BACK: Nontender without obvious deformity. No CVA tenderness. Vital Signs Date Time Temp Pulse Resp B/P (MAP) Pulse Ox O2 Delivery O2 Flow Rate FiO2 10/05/17 15:30 16 10/05/17 15:00 97 Nasal Cannula 2.00 10/05/17 15:00 97.8 74 18 107/68 (81) 97 Arterial Line 10/05/17 15:00 73 10/05/17 11:00 68 10/05/17 11:00 97 Nasal Cannula 2.00 10/05/17 11:00 98.1 68 18 104/62 (76) 97 105/53 (70) 10/05/17 08:00 98 Nasal Cannula 2.00 10/05/17 08:00 68 10/05/17 08:00 97.7 82 18 111/64 (80) 99 117/64 (81) 10/05/17 07:36 97 Nasal Cannula 2.00 10/05/17 05:00 76 123/74 10/05/17 03:00 98.5 71 22 120/60 (80) 97 117/59 (78) 10/05/17 03:00 71 10/05/17 03:00 97 Nasal Cannula 2.00 10/04/17 23:00 97 Nasal Cannula 2.00 10/04/17 23:00 98.8 78 18 82/59 (67) 97 94/87 (89) 10/04/17 23:00 78 10/04/17 20:31 99 Nasal Cannula 2.00 10/04/17 19:35 18 10/04/17 19:00 99 Nasal Cannula 2.00 10/04/17 19:00 76 10/04/17 19:00 98.6 76 18 115/75 (88) 99 116/59 (78) Result Diagram: 10/05/1742910/05/17429 (1) Multi-vessel coronary artery stenosis (2) NSTEMI (non-ST elevation myocardial infarction) (3) S/P CABG x 2 Plan: on ASA, plavix , amiodarone, statin no BB or merrill with labile BP started on midodrine OOB as tolerated Keep in ICU today CM to eval for rehab at discharge (4) Ischemic cardiomyopathy Plan: EF 35% , start MERRILL when BP tolerates (5) ESRD (end stage renal disease) Plan: on dialysis today (6) DM (diabetes mellitus) Plan: insulin sliding scale add bid levemir (7) Hyperlipidemia Plan: ass statin (8) HTN (hypertension) (9) Blood loss anemia Plan: transfuse one unit PRBC with dialysis this am Lottie Monteiro Oct 05, 2017 16:44
--- NOTE | 2017-10-05 16:52 | HHI.NPPN ---
Subjective General Problems: Anemia, Edema, Heart Disease, Hypertension Renal Failure: End Stage Renal Disease History of Present Illness 57-year-old male with past medical history of ischemic heart disease, hypertension, cardiomyopathy, end-stage renal disease, on hemodialysis 3 times per week, diabetes mellitus, came to the hospital with a complaint of recurrent chest pain. I was called to see the patient because of management of dialysis. The patient has a known history of ischemic heart disease and congestive heart failure. Additional Remarks Patient is sitting up in chair. Pain well controlled. Denies any shortness of breath. (Racquel Hooks) Review of Systems General Constitutional: Fatigue (Racquel Hooks) Respiratory Respiratory Remarks No SOB (Racquel Hooks) Cardiovascular Cardiac: AUGUSTINE (Racquel Hooks) Gastrointestinal GI Remarks Denies any abdominal pain (Racquel Hooks) Objective Data Data 10/05/17 10/06/17 19:00 07:00 Intake Total 120 ml Balance 120 ml IV Total 120 ml Vital Signs Date Time Temp Pulse Resp B/P (MAP) Pulse Ox O2 Delivery O2 Flow Rate FiO2 10/05/17 15:30 16 10/05/17 15:00 97 Nasal Cannula 2.00 10/05/17 15:00 97.8 74 18 107/68 (81) 97 Arterial Line 10/05/17 15:00 73 10/05/17 11:00 68 10/05/17 11:00 97 Nasal Cannula 2.00 10/05/17 11:00 98.1 68 18 104/62 (76) 97 105/53 (70) 10/05/17 08:00 98 Nasal Cannula 2.00 10/05/17 08:00 68 10/05/17 08:00 97.7 82 18 111/64 (80) 99 117/64 (81) 10/05/17 07:36 97 Nasal Cannula 2.00 10/05/17 05:00 76 123/74 10/05/17 03:00 98.5 71 22 120/60 (80) 97 117/59 (78) 10/05/17 03:00 71 10/05/17 03:00 97 Nasal Cannula 2.00 10/04/17 23:00 97 Nasal Cannula 2.00 10/04/17 23:00 98.8 78 18 82/59 (67) 97 94/87 (89) 10/04/17 23:00 78 10/04/17 20:31 99 Nasal Cannula 2.00 10/04/17 19:35 18 10/04/17 19:00 99 Nasal Cannula 2.00 10/04/17 19:00 76 10/04/17 19:00 98.6 76 18 115/75 (88) 99 116/59 (78) (Racquel Hooks) -: 10/05/17 0430 10/05/17 0430 Physical Exam General Appearance: No Acute Distress, Comfortable (Racquel Hooks) Eyes Eye Exam: Pupils Equal (Racquel Hooks) Throat Throat Exam: Oral Mucosa [place] & Moist (Racquel Hooks) Neck Neck Exam: Neck Supple (Racquel Hooks) Pulmonary Resp Exam: Breath Sounds Equal, No Distress, Decreased Bases (Racquel Hooks) Cardiology CV Exam: Regular, Normal Sinus Rhythm (Racquel Hooks) Gastrointestinal/Abdomen GI Exam: Soft, Non-Tender, Bowel Sounds Present (Racquel Hooks) Integumentary Skin Exam: Clear, Warm (Racquel Hooks) Extremeties Extremities Exam: Trace Edema (Racquel Hooks) Neurologic Neuro Exam: Alert, Awake, Oriented (Racquel Hooks) Psychiatric Psych Exam: Appropriate Responses (Racquel Hooks) Assessment/Plan Discussed Condition With: Daughter Assessment Summary: Anemia of CKD, CHF, Hypertension, End Stage Renal Disease Problem List: (1) ESRD on hemodialysis ICD Codes: N18.6 - End stage renal disease; Z99.2 - Dependence on renal dialysis Plan: ESRD HD on Patient has significant IHD and has low EF. S/P heart cath found to have restenosis of his complex PCI cardiac surgery consulted S/P CABG 10/03/17 X 2 Plan Continue phoslo Epogen with dialysis Midodrine added for low blood pressure and pressors discontinued HD yesterday with UF of 3 liters tolerated well. Hemodialysis in tomorrow (2) DM (diabetes mellitus) ICD Codes: E11.9 - Type 2 diabetes mellitus without complications (3) Ischemic cardiomyopathy ICD Codes: I25.5 - Ischemic cardiomyopathy Status: Chronic (4) NSTEMI (non-ST elevation myocardial infarction) ICD Codes: I21.4 - Non-ST elevation (NSTEMI) myocardial infarction Status: Acute (5) Hyperlipidemia ICD Codes: E78.5 - Hyperlipidemia, unspecified Status: Chronic (6) Anemia ICD Codes: D64.9 - Anemia, unspecified Status: Chronic (7) HTN (hypertension) ICD Codes: I10 - Essential (primary) hypertension Status: Chronic (8) Multi-vessel coronary artery stenosis ICD Codes: I25.10 - Atherosclerotic heart disease of [place] coronary artery without angina pectoris Plan (Racquel Hooks) Problem List: (1) ESRD on hemodialysis ICD Codes: N18.6 - End stage renal disease; Z99.2 - Dependence on renal dialysis Plan: ESRD HD on / Patient has significant IHD and has low EF. S/P heart cath found to have restenosis of his complex PCI cardiac surgery consulted S/P CABG 10/03/17 X 2 Plan Continue phoslo Epogen with dialysis Midodrine added for low blood pressure and pressors discontinued HD yesterday with UF of 3 liters tolerated well. Hemodialysis in tomorrow. Patient seen and examined, agree with above. BP is better with Midodrine. (2) DM (diabetes mellitus) ICD Codes: E11.9 - Type 2 diabetes mellitus without complications (3) Ischemic cardiomyopathy ICD Codes: I25.5 - Ischemic cardiomyopathy Status: Chronic (4) NSTEMI (non-ST elevation myocardial infarction) ICD Codes: I21.4 - Non-ST elevation (NSTEMI) myocardial infarction Status: Acute (5) Hyperlipidemia ICD Codes: E78.5 - Hyperlipidemia, unspecified Status: Chronic (6) Anemia ICD Codes: D64.9 - Anemia, unspecified Status: Chronic (7) HTN (hypertension) ICD Codes: I10 - Essential (primary) hypertension Status: Chronic (8) Multi-vessel coronary artery stenosis ICD Codes: I25.10 - Atherosclerotic heart disease of [place] coronary artery without angina pectoris (Jeana Corona MD) Raqcuel Hooks Oct 05, 2017 16:52 Jeana Corona MD Oct 05, 2017 18:50
[2017-10-05] MEDS: ATORVASTATIN 40 MG TAB PO SCH (20:45)
[2017-10-05] MEDS: DOCUSATE SODIUM 100 MG CAP PO SCH (20:46)
[2017-10-05] MEDS: SENNOSIDES 8.6 MG TAB PO SCH (20:46)
[2017-10-05] MEDS ORDERED: DOCUSATE SODIUM 100 MG CAP PO SCH (21:00)
--- NOTE | 2017-10-05 23:30 | PD.CARD.PN ---
Subjective Subjective Remarks Patient was seen earlier today, late entry note Kb drip off Doing well, up to the chair Objective Medications Current Medications Medications (Trade) Dose Ordered Sig/Taj Route Start Time Stop Time Status Last Admin (Tylenol) 650 mg Q6H PRN PO 09/24/17 22:15 ([place] 5-325 Mg) 1 tab Q4H PRN PO 09/24/17 22:15 10/05/17 17:46 (Lactulose Liq) 30 ml DAILY PRN PO 09/24/17 22:15 (Phoslo) 1,334 mg TID PO 09/25/17 09:00 10/05/17 17:30 (Catapres) 0.1 mg BID PO 09/25/17 09:00 Future Hold (Neurontin) 100 mg TID PO 09/25/17 09:00 10/05/17 17:30 (Apresoline) 50 mg TID PO 09/25/17 09:00 Future Hold (Coreg) 25 mg Q12HR PO 09/25/17 21:00 Future Hold 10/02/17 09:11 Albumin Human 100 ml @ 60 mls/hr UNSCH PRN IV 09/26/17 15:00 Sodium Chloride 500 ml @ 30 mls/hr [id number] PRN IV 10/03/17 00:15 10/06/17 00:14 (NS Flush) 2 ml BID IV FLUSH 10/03/17 21:00 10/05/17 20:46 (NS Flush) 2 ml UNSCH PRN IV FLUSH 10/03/17 11:30 Dexmedetomidine HCl 200 mcg/ Sodium Chloride 52 ml @ 5.4 mls/hr TITRATE PRN IV 10/03/17 11:30 (Aspirin Chew) 81 mg DAILY PO 10/04/17 09:00 10/05/17 08:32 (Plavix) 75 mg DAILY PO 10/04/17 09:00 10/05/17 08:32 (Protonix) 40 mg DAILY@06 PO 10/04/17 06:00 10/05/17 06:00 (Cordarone) 200 mg Q12HR PO 10/03/17 21:00 10/05/17 20:45 (Tylenol) 650 mg Q4H PRN PO 10/03/17 11:30 (Percocet 5-325 Mg) 2 tab Q3H PRN PO 10/03/17 11:30 10/04/17 18:33 (Zofran Inj) 4 mg Q6H PRN IV PUSH 10/03/17 11:30 (Apresoline Inj) 10 mg Q4H PRN IV PUSH 10/03/17 11:30 (Duoneb Neb) 1 ampule Q2HR NEB PRN NEB 10/03/17 11:30 Phenylephrine HCl 160 mg/Dextrose 500 ml @ 7.5 mls/hr TITRATE PRN IV 10/04/17 08:45 10/04/17 15:35 (Senokot) 8.6 mg HS PO 10/05/17 21:00 10/05/17 20:46 (NovoLOG SUPPLEMENTAL SCALE) 1 ACHS SQ 10/05/17 08:00 10/05/17 21:00 (Lipitor) 40 mg HS PO 10/04/17 21:00 10/05/17 20:45 (Epogen Inj) 10,000 units UNSCH PRN IV PUSH 10/04/17 15:00 (Duoneb Neb) 1 ampule Q6HR WHILE AWAKE NEB NEB 10/05/17 14:00 10/07/17 13:59 10/05/17 19:44 (Colace) 100 mg BID PO 10/05/17 21:00 10/05/17 20:46 (Theragran M Tab) 1 tab DAILY PO 10/05/17 09:30 (Dulcolax Supp) 10 mg UNSCH PRN RECTAL 10/05/17 09:30 (Miralax) 17 gm DAILY PO 10/06/17 09:00 (Fleets Enema (Adult)) 118 ml UNSCH PRN RECTAL 10/05/17 09:30 (D50w (Vial) Inj) 50 ml UNSCH PRN IV PUSH 10/05/17 09:30 (Glucagon Inj) 1 mg UNSCH PRN OTHER 10/05/17 09:30 (Proamatine) 5 mg TID@07,12,17 PO 10/05/17 09:30 10/05/17 17:46 Vital Signs / I&O Vital Signs Date Time Temp Pulse Resp B/P (MAP) Pulse Ox O2 Delivery O2 Flow Rate FiO2 10/05/17 19:48 97 Nasal Cannula 2.00 4/11/18 19:00 96 Nasal Cannula 2.00 10/05/17 19:00 97.8 74 22 108/69 (82) 97 10/05/17 19:00 74 10/05/17 19:00 20 10/05/17 15:00 97 Nasal Cannula 2.00 10/05/17 15:00 97.8 74 18 107/68 (81) 97 Arterial Line 10/05/17 15:00 73 10/05/17 11:00 68 10/05/17 11:00 97 Nasal Cannula 2.00 10/05/17 11:00 98.1 68 18 104/62 (76) 97 105/53 (70) 10/05/17 08:00 98 Nasal Cannula 2.00 10/05/17 08:00 68 10/05/17 08:00 97.7 82 18 111/64 (80) 99 117/64 (81) 10/05/17 07:36 97 Nasal Cannula 2.00 10/05/17 05:00 76 123/74 10/05/17 03:00 98.5 71 22 120/60 (80) 97 117/59 (78) 10/05/17 03:00 71 10/05/17 03:00 97 Nasal Cannula 2.00 I/O 10/05/17 10/05/17 10/05/17 10/06/17 10/06/17 10/06/17 07:00 15:00 23:00 07:00 15:00 23:00 Intake Total 479 ml 120 ml 960 ml Output Total 160 ml 420 ml Balance 319 ml 120 ml 540 ml Intake Oral 200 ml 960 ml IV Total 279 ml 120 ml Output Urine Total 0 ml Chest Tube Drainage Total 160 ml 420 ml # Voids 1 # Bowel Movements 0 0 Physical Exam GENERAL: NAD, AAOx3 SKIN: Warm and dry. HEAD: Atraumatic. Normocephalic. EYES: Pupils equal and round. No scleral icterus. No injection or drainage. ENT: No nasal bleeding or discharge. Mucous membranes pink and moist. NECK: Trachea midline. No JVD. CARDIOVASCULAR: Regular rate and rhythm. RESPIRATORY: No accessory muscle use. Clear to auscultation. Breath sounds equal bilaterally. GASTROINTESTINAL: Abdomen soft, non-tender, nondistended. Hepatic and splenic margins not palpable. MUSCULOSKELETAL: Extremities without clubbing, cyanosis, or edema. No obvious deformities. Right femoral no hematoma NEUROLOGICAL: No focal deficits Laboratory Laboratory Tests Test 10/05/17 04:30 White Blood Count 11.0 TH/MM3 Red Blood Count 2.98 MIL/MM3 Hemoglobin 9.5 GM/DL Hematocrit 28.3 % Mean Corpuscular Volume 95.1 FL Mean Corpuscular Hemoglobin 32.0 PG Mean Corpuscular Hemoglobin Concent 33.6 % Red Cell Distribution Width 17.6 % Platelet Count 161 TH/MM3 Mean Platelet Volume 9.2 FL Neutrophils (%) (Auto) 80.1 % Lymphocytes (%) (Auto) 6.4 % Monocytes (%) (Auto) 12.2 % Eosinophils (%) (Auto) 0.8 % Basophils (%) (Auto) 0.5 % Neutrophils # (Auto) 8.8 TH/MM3 Lymphocytes # (Auto) 0.7 TH/MM3 Monocytes # (Auto) 1.3 TH/MM3 Eosinophils # (Auto) 0.1 TH/MM3 Basophils # (Auto) 0.1 TH/MM3 CBC Comment DIFF FINAL Differential Comment Prothrombin Time 14.5 SEC Prothromb Time International Ratio 1.4 RATIO Blood Urea Nitrogen 49 MG/DL Creatinine 8.95 MG/DL Random Glucose 81 MG/DL Calcium Level 8.2 MG/DL Magnesium Level 2.4 MG/DL Sodium Level 138 MEQ/L Potassium Level 4.7 MEQ/L Chloride Level 99 MEQ/L Carbon Dioxide Level 29.5 MEQ/L Anion Gap 10 MEQ/L Estimat Glomerular Filtration Rate 6 ML/MIN Assessment and Plan Problem List: (1) Multi-vessel coronary artery stenosis ICD Codes: I25.10 - Atherosclerotic heart disease of [place] coronary artery without angina pectoris (2) NSTEMI (non-ST elevation myocardial infarction) ICD Codes: I21.4 - Non-ST elevation (NSTEMI) myocardial infarction Status: Acute (3) S/P CABG x 2 ICD Codes: Z95.1 - Presence of aortocoronary bypass graft (4) Ischemic cardiomyopathy ICD Codes: I25.5 - Ischemic cardiomyopathy Status: Chronic (5) ESRD (end stage renal disease) ICD Codes: N18.6 - End stage renal disease Status: Acute (6) DM (diabetes mellitus) ICD Codes: E11.9 - Type 2 diabetes mellitus without complications (7) Hyperlipidemia ICD Codes: E78.5 - Hyperlipidemia, unspecified Status: Chronic (8) HTN (hypertension) ICD Codes: I10 - Essential (primary) hypertension Status: Chronic (9) Blood loss anemia ICD Codes: D50.0 - Iron deficiency anemia secondary to blood loss (chronic) Assessment and Plan 1) Elevated troponin/CAD Restenosis of LM/LAD/LCx stent s/p CABGx2 POD #2 SANDERSON to LAD SVG to OM 2) ESRD on HD 3) EF 50-55% 4) Vasopressors now off 5) Chest tubes still with drainage José Antonio May DO Oct 05, 2017 23:30
[2017-10-06] VITALS (9 sets, daily range): BP systolic 100–109; BP diastolic 57–70; PULSE 61–75; RESP 12–22; TEMP 97.9–99.4; O2SAT 94–99
[2017-10-06] MEDS: oxyCODONE/ACETAMINOPHEN 5 MG/325 MG TAB PO PRN ×2 (00:14→21:08)
[2017-10-06 05:50] LABS: AUTOMATED NEUTROPHIL # 7.4 TH/MM3 (1.8-7.7); BASOPHIL % 0.5 % (0.0-2.0); EOSINOPHIL # 0.2 TH/MM3 (0-0.4); EOSINOPHIL % 2.3 % (0.0-4.0); HEMATOCRIT 26.7 % (39.0-51.0); LYMPH % 6.9 % (9.0-44.0); LYMPHOCYTE # 0.6 TH/MM3 (1.0-4.8); MEAN CELL VOLUME 95.5 FL (80.0-100.0); MEAN CORPUSCULAR HEMOGLOBIN 32.3 PG (27.0-34.0); MEAN CORPUSCULAR HGB CONC 33.8 % (32.0-36.0); MONO % 9.4 % (0.0-8.0); MONOCYTE # 0.9 TH/MM3 (0-0.9); NEUT % 80.9 % (16.0-70.0); PLATELET COUNT 125 TH/MM3 (150-450); RED BLOOD COUNT 2.79 MIL/MM3 (4.50-5.90); RED CELL DISTRIBUTION WIDTH 17.1 % (11.6-17.2); WHITE BLOOD COUNT 9.2 TH/MM3 (4.0-11.0)
[2017-10-06] MEDS: PANTOPRAZOLE SOD 40 MG DELAYED RELEASE TAB PO SCH (06:00)
[2017-10-06 06:03] LABS: INTERNATIONAL NORMALIZED RATIO 1.3 RATIO; PROTHROMBIN TIME - PATIENT 13.4 SEC (9.8-11.6)
[2017-10-06 06:08] LABS: BICARBONATE 28.5 MEQ/L (21.0-32.0); CALCIUM 8.7 MG/DL (8.5-10.1); MAGNESIUM 2.5 MG/DL (1.5-2.5)
[2017-10-06 06:13] LABS: CREATININE 10.89 MG/DL (0.60-1.30)
[2017-10-06] MEDS: MIDODRINE 5 MG TAB PO SCH ×3 (06:41→17:11)
[2017-10-06] MEDS: RESP: ALBUTEROL 2.5 MG/IPRATROPIUM 0.5 MG NEB (SCH) NEB ×3 (07:18→20:06)
[2017-10-06] MEDS ORDERED: POLYETHYLENE GLYCOL 17 GM PKG PO SCH (09:00)
[2017-10-06] MEDS: CLOPIDOGREL 75 MG TAB PO SCH (09:00)
[2017-10-06] MEDS: GABAPENTIN 100 MG CAP PO SCH ×3 (09:40→17:26)
[2017-10-06] MEDS: POLYETHYLENE GLYCOL 17 GM PKG PO SCH (09:40)
[2017-10-06] MEDS: CALCIUM ACETATE 667 MG CAP PO SCH ×3 (09:40→17:26)
[2017-10-06] MEDS: DOCUSATE SODIUM 100 MG CAP PO SCH ×2 (09:40→21:06)
[2017-10-06] MEDS: ASPIRIN 81 MG CHEW TAB PO SCH (09:41)
[2017-10-06] MEDS: INSULIN ASPART SUPPLEMENTAL SCALE SQ SCH ×4 (09:41→21:06)
[2017-10-06] MEDS: AMIODARONE 200 MG TAB PO SCH ×2 (09:41→21:08)
[2017-10-06] MEDS: MULTIVITAMINS/MINERALS THERAPEUTIC TAB PO SCH (09:41)
[2017-10-06] MEDS: SODIUM CHLORIDE 0.9% FLUSH 10 ML FLUSH IV FLUSH SCH ×2 (09:51→21:07)
[2017-10-06] MEDS ORDERED: CALCIUM GLUCONATE 10% 1 GM/10 ML VIAL IV PUSH ONE (11:00)
[2017-10-06] MEDS ORDERED: SODIUM BICARBONATE 8.4% INJ 50 MEQ/50 ML SYR IV PUSH ONE (11:00)
--- NOTE | 2017-10-06 12:30 | HHI.PR ---
Subjective Remarks This is a 57-year-old male with a PMH of HTN, CAD, Ischemic Cardiomyopathy ( Echo 08/03/2017 w/ EF 40-45%), DM and ESRD on HD T//Tue who presented to the ER w/ complaints of chest pain and SOB. Recent admit for similar complaints 08/01- found to have NSTEMI, s/p Cath w/ PCI of LM/LAD/LCx, reports on Brilinta and Coumadin, compliant w/ meds. States doing well after discharge, but had PFTs done 09/16/17 and developed severe chest pain few days after. Pain is substernal, 02/03, non-radiating, associated w/ SOB. On arrival, BP 106/66, HR 62, O2 sat 98% RA, Afebrile. CBC at baseline. Chemistry essentially at baseline. Troponin 0.74. INR 2.7. CXR with no acute findings. Currently chest pain free. Follows w/ Dr. May w/ Cardiology and Dr. Corona w/ Nephro 4-2 Denies chest pain this morning. Mild dyspnea. 4-3 Patient seen after dialysis. He denies any chest pain. Still reports some mild SOB with activities. 4-4 patient is now scheduled to undergo cardiac catheterization hopefully tomorrow September 29 due to his coagulopathy. Patient will obviously need to have hemodialysis after his cardiac catheterization Have discussed with patient and RN and case management and family Await his INR to come down lower than 2.0 4-5 patient underwent his cardiac catheterization today. And cardiovascular surgery has not been consult. Have discussed with Dr. May Patient was seen in dialysis. Discussed the situation with him He is amenable to whatever is suggested Have discussed with him and cardiology and RN and case management and the patient 4-6 patient had cardiac catheterization yesterday Seen during dialysis yesterday Await cardiovascular surgery today discussed with patient and RN and family and case management Await cardiovascular surgery opinion 4-7 SEEN IN HD FOR SURGERY ON TUESDAY UNLESS ISSUES DW RN AND PT AND CARDIOLOGY AND CM AM LABS DENIES ANY CHEST PAIN OR PAIN AT THIS TIME 4-8 patient states he is bored today Denies any new complaints denies any chest pain denies any shortness of breath Discussed with patient and RN and case management Surgery on Tuesday for CABG 4-9 Patient status post CABG just came from operation room still under sedation , 2 chest tube, on dobutamine and Kb-Synephrine drip 4-10 Patient sitting on the chair, on O2 nasal cannula, still on dobutamine and Kb-Synephrine drip 2 chest tube still draining Reported mild chest soreness from the surgery otherwise no acute issue Afebrile overnight 4-11 Follow-up for coronary artery disease status post CABG Patient sitting on the chair doing better today blood pressure stable off the dobutamine and Kb-Synephrine drip Son at the bedside discussed with the nurse continue current care, no fever, no event overnight, chest tube [address] 4-12 SEEN IN ICU SITTING IN CHAIR TO HAVE HD LATER TODAY DW RN AND PATIENT INCREASE ACTIVITY INCENTIVE SPIROMETRY AM LABS Objective Vitals Vital Signs Date Time Temp Pulse Resp B/P (MAP) Pulse Ox O2 Delivery O2 Flow Rate FiO2 10/06/17 07:18 99 Nasal Cannula 2.00 10/06/17 07:00 98.7 68 12 100/70 (80) 99 10/06/17 07:00 70 10/06/17 07:00 100 Nasal Cannula 2.00 10/06/17 03:00 75 10/06/17 03:00 97.9 75 22 107/62 (77) 94 10/06/17 03:00 96 Nasal Cannula 2.00 10/06/17 01:20 22 10/05/17 23:00 97 Nasal Cannula 2.00 10/05/17 23:00 98.2 74 18 105/68 (80) 97 10/05/17 23:00 72 10/05/17 19:48 97 Nasal Cannula 2.00 10/05/17 19:00 96 Nasal Cannula 2.00 10/05/17 19:00 97.8 74 22 108/69 (82) 97 10/05/17 19:00 74 10/05/17 19:00 20 10/05/17 15:00 97 Nasal Cannula 2.00 10/05/17 15:00 97.8 74 18 107/68 (81) 97 Arterial Line 10/05/17 15:00 73 I/O 10/05/17 10/05/17 10/05/17 10/06/17 10/06/17 10/06/17 07:00 15:00 23:00 07:00 15:00 23:00 Intake Total 479 ml 120 ml 960 ml 240 ml Output Total 160 ml 420 ml 160 ml Balance 319 ml 120 ml 540 ml 80 ml Intake Oral 200 ml 960 ml 240 ml IV Total 279 ml 120 ml Output Urine Total 0 ml 100 ml Chest Tube Drainage Total 160 ml 420 ml 60 ml # Voids 1 1 # Bowel Movements 0 0 0 Result Diagram: 10/06/17 0529 10/06/17 0529 Other Results Laboratory Tests Test 10/03/17 14:10 10/03/17 15:50 10/03/17 17:26 10/04/17 04:35 White Blood Count 10.8 TH/MM3 9.9 TH/MM3 Red Blood Count 2.85 MIL/MM3 2.55 MIL/MM3 Hemoglobin 9.2 GM/DL 8.2 GM/DL Hematocrit 27.4 % 24.4 % Mean Corpuscular Volume 96.0 FL 95.6 FL Mean Corpuscular Hemoglobin 32.4 PG 32.0 PG Mean Corpuscular Hemoglobin Concent 33.8 % 33.5 % Red Cell Distribution Width 18.1 % 17.7 % Platelet Count 158 TH/MM3 135 TH/MM3 Mean Platelet Volume 9.4 FL 9.1 FL Neutrophils (%) (Auto) 84.3 % 88.2 % Lymphocytes (%) (Auto) 5.7 % 3.5 % Monocytes (%) (Auto) 8.8 % 7.6 % Eosinophils (%) (Auto) 0.7 % 0.2 % Basophils (%) (Auto) 0.5 % 0.5 % Neutrophils # (Auto) 9.1 TH/MM3 8.7 TH/MM3 Lymphocytes # (Auto) 0.6 TH/MM3 0.3 TH/MM3 Monocytes # (Auto) 1.0 TH/MM3 0.8 TH/MM3 Eosinophils # (Auto) 0.1 TH/MM3 0.0 TH/MM3 Basophils # (Auto) 0.1 TH/MM3 0.1 TH/MM3 CBC Comment DIFF FINAL DIFF FINAL Differential Comment Prothrombin Time 14.3 SEC 14.2 SEC Prothromb Time International Ratio 1.4 RATIO 1.4 RATIO Activated Partial Thromboplast Time 28.7 SEC 27.2 SEC Fibrinogen 323 mg/dL Blood Urea Nitrogen 69 MG/DL Creatinine 11.16 MG/DL Random Glucose 99 MG/DL Total Protein 5.0 GM/DL Albumin 2.4 GM/DL Calcium Level 8.3 MG/DL Alkaline Phosphatase 60 U/L Aspartate Amino Transf (AST/SGOT) 14 U/L Alanine Aminotransferase (ALT/SGPT) 19 U/L Total Bilirubin 0.4 MG/DL Sodium Level 138 MEQ/L Potassium Level 5.2 MEQ/L Chloride Level 101 MEQ/L Carbon Dioxide Level 25.4 MEQ/L Anion Gap 12 MEQ/L Estimat Glomerular Filtration Rate 5 ML/MIN Hemoglobin A1c 7.2 % Magnesium Level 2.5 MG/DL Test 10/05/17 04:30 10/06/17 05:29 White Blood Count 11.0 TH/MM3 9.2 TH/MM3 Red Blood Count 2.98 MIL/MM3 2.79 MIL/MM3 Hemoglobin 9.5 GM/DL 9.0 GM/DL Hematocrit 28.3 % 26.7 % Mean Corpuscular Volume 95.1 FL 95.5 FL Mean Corpuscular Hemoglobin 32.0 PG 32.3 PG Mean Corpuscular Hemoglobin Concent 33.6 % 33.8 % Red Cell Distribution Width 17.6 % 17.1 % Platelet Count 161 TH/MM3 125 TH/MM3 Mean Platelet Volume 9.2 FL 9.0 FL Neutrophils (%) (Auto) 80.1 % 80.9 % Lymphocytes (%) (Auto) 6.4 % 6.9 % Monocytes (%) (Auto) 12.2 % 9.4 % Eosinophils (%) (Auto) 0.8 % 2.3 % Basophils (%) (Auto) 0.5 % 0.5 % Neutrophils # (Auto) 8.8 TH/MM3 7.4 TH/MM3 Lymphocytes # (Auto) 0.7 TH/MM3 0.6 TH/MM3 Monocytes # (Auto) 1.3 TH/MM3 0.9 TH/MM3 Eosinophils # (Auto) 0.1 TH/MM3 0.2 TH/MM3 Basophils # (Auto) 0.1 TH/MM3 0.0 TH/MM3 CBC Comment DIFF FINAL DIFF FINAL Differential Comment Prothrombin Time 14.5 SEC 13.4 SEC Prothromb Time International Ratio 1.4 RATIO 1.3 RATIO Blood Urea Nitrogen 49 MG/DL 65 MG/DL Creatinine 8.95 MG/DL 10.89 MG/DL Random Glucose 81 MG/DL 207 MG/DL Calcium Level 8.2 MG/DL 8.7 MG/DL Magnesium Level 2.4 MG/DL 2.5 MG/DL Sodium Level 138 MEQ/L 133 MEQ/L Potassium Level 4.7 MEQ/L 6.0 MEQ/L Chloride Level 99 MEQ/L 96 MEQ/L Carbon Dioxide Level 29.5 MEQ/L 28.5 MEQ/L Anion Gap 10 MEQ/L 9 MEQ/L Estimat Glomerular Filtration Rate 6 ML/MIN 5 ML/MIN Imaging Last Impressions Chest X-Ray 10/04/17 0500 Signed Impressions: Service Date/Time: Wednesday, October 04, 2017 03:30 - CONCLUSION: 1. Status post CABG. 2. Minimal bibasilar densities likely atelectasis. Jaylan Burgos MD Lower Extremity Ultrasound 09/30/17 0000 Signed Impressions: Service Date/Time: Saturday, September 30, 2017 15:06 - CONCLUSION: 1. Possible old , mural nonocclusive thrombus in the proximal right greater saphenous vein. 2. Otherwise, greater saphenous veins are patent bilaterally with measurements as above. Lloyd Rodríguez MD Objective Remarks GENERAL: Awake alert and oriented 3 talkative and cooperative --does not appear to be in any major distress SKIN: Warm and dry. HEAD: Atraumatic. Normocephalic. EYES: Pupils equal and round. No scleral icterus. No injection or drainage. Extraocular muscles intact ENT: No nasal bleeding or discharge. Mucous membranes pink and moist. Tongue is midline NECK: Trachea midline. No JVD. Supple CARDIOVASCULAR: Regular rate and rhythm. S1-S2 no S3 or S4 RESPIRATORY: No accessory muscle use. Clear to auscultation. Breath sounds equal bilaterally. GASTROINTESTINAL: Abdomen soft, non-tender, nondistended. Hepatic and splenic margins not palpable. Obese MUSCULOSKELETAL: Extremities without clubbing, cyanosis, or edema. No obvious deformities. Right upper extremity AV fistula with good thrill and bruit in the forearm NEUROLOGICAL: Awake and alert. No obvious cranial nerve deficits. Motor grossly within normal limits. Five out of 5 muscle strength in the arms and legs. Normal speech. PSYCHIATRIC: Appropriate mood and affect; insight and judgment normal. Procedures Hemodialysis 4-5 cardiac catheterization Post-cath, found to have restenosis of LM/LAD/LCx stent --cardio vascular surgery has been consulted DATE OF PROCEDURE: 09/29/2017. PROCEDURE: Left heart catheterization, coronary angiogram, moderate sedation 25 minutes, Vascade femoral closure. PREPROCEDURE DIAGNOSES: [id number] myocardial infarction, coronary artery disease. POSTPROCEDURE DIAGNOSIS: Coronary artery disease, restenosis of left main/left anterior descending/left circumflex stents. MEDICATIONS: Versed 0.5 mg, fentanyl 25 mcg. CONTRAST USED: 35 mL FLUOROSCOPY: 1.2 minutes. MODERATE SEDATION: 25 minutes. ESTIMATED BLOOD LOSS: 10 mL. PROCEDURAL SUMMARY: Dandy Singleton is a pleasant 57-year-old male whom I see in the office and presented to [facility] due to chest pain. He was found to have an elevated troponin and recommended cardiac catheterization. Risks, benefits and alternatives were explained to him and he consented to such. He was brought to the lab and prepped in the usual sterile fashion. Left femoral artery was accessed using modified Seldinger technique and placement of a 5-Honduran sheath. This was easily aspirated and flushed. A JR4 was advanced over a J-wire to the ascending aorta and across the aortic valve for measurement of left ventricular pressure. This was pulled back across the aortic valve, showing no significant gradient of aortic stenosis. The JR4 was used for selective angiography of the right coronary artery system. This was then exchanged for a JL4, which was used for selective angiography of the left coronary artery system. The JL4 was removed over a J-wire. Vascade femoral closure device was used for the arteriotomy. The patient left the rn labor delivery cardiovascularly stable. FINDINGS: Left main stent patent with 70% in-stent restenosis. It bifurcates into an LAD and circumflex. LAD stent and the stent from the left main into the LAD has a 90% in-stent restenosis. Mid to distal stent is patent. Distally, the vessel has diffuse 30% disease. Left circumflex stent from left main into left circumflex has a 95% restenosis. Stent in the mid portion is patent with no significant disease. It gives off 2 obtuse marginals with no significant disease. RCA is a normal size vessel with 30% disease throughout the proximal portion. Distally, the vessel is diffusely diseased of 80% to 90% throughout with subtotal occlusions. LVEDP 30. IMPRESSION: 1. Non-ST elevation myocardial infarction. 2. Coronary artery disease with complex percutaneous coronary intervention of left main, left anterior descending and left circumflex previously. RECOMMENDATIONS: 1. Mr. Singleton presented again with an elevated troponin and once again was found to have restenosis of his complex PCI. 2. As the last time I attempted to use laser arthrectomy and cutting balloons and still had restenosis, as well as now the vessels have increased in size distally due to better flow, I think that he should undergo consideration of coronary artery bypass grafting. 3. I have discussed this with CT surgery and they will see him in consultation. 4. Due to the significance of his disease, he will be placed on a heparin drip 5 hours after sheath was removed. 5. We will plan on rechecking an echo to look at his overall left ventricular function in anticipation of coronary artery bypass grafting. 6. His Brilinta will be held for anticipated coronary artery bypass grafting. 7. If at any time he has significant chest pain or becomes hemodynamically or electrically unstable, he will be taken back to the rn labor delivery emergently for placement of intraaortic balloon pump. 8. We will plan on having him undergo hemodialysis after cardiac catheterization. Thank you for allowing me to see Dandy Singleton. If there are any questions, please do not hesitate to call. Date of Surgery: Oct 03, 2017 Preoperative Diagnosis: Postoperative Diagnosis: Procedure: 1. Urgent Off-pump Coronary Artery Bypass Grafting x 2 with Left Internal Mammary Artery (SANDERSON) to Left Anterior Descending (LAD), reverse saphenous vein graft to the Obtuse Marginal 2 (OM2) branch of the Left Circumflex artery 2. Left Leg Endoscopic Vein [place] 3. Intraoperative Vein Mapping 4. Drainage of Pleural Effusions. Surgeon: Muriel Tim Waste Cotton Cleaner(s): Giorgio Chandra Operation and Findings: PREPROCEDURE DIAGNOSES 1. Severe Multi Vessel Coronary Artery Disease. 2. Acute Myocardial Infarction (NSTEMI) 3. Severe Left Ventricular Dysfunction (EF 35%) POSTPROCEDURE DIAGNOSES Same SURGICAL PROCEDURE 1. Urgent Off-pump Coronary Artery Bypass Grafting x 2 with Left Internal Mammary Artery (SANDERSON) to Left Anterior Descending (LAD), reverse saphenous vein graft to the Obtuse Marginal 2 (OM2) branch of the Left Circumflex artery 2. Left Leg Endoscopic Vein Warwick 3. Intraoperative Vein Mapping 4. Drainage of Pleural Effusions. SURGEON Muriel Tim MD PRINTING ENGINEER Cynthia Russo, JULIANNE Chandra, ANTWON ANESTHESIA General endotracheal LOCKER PLANT ATTENDANT Agustin Villegas, ROMIE Felix MD PREPARATION ChloraPrep. COUNTS Needle, sponge, and instrument counts were correct. DRAINS Two 32-Honduran mediastinal tubes. COMPLICATIONS None. INDICATIONS FOR PROCEDURE The patient is a 57-year-old presenting with chest pain and AMI. Patient was noted to have multi-vessel coronary artery disease. The patient is being brought to the operating room for surgical revascularization therapy. PROCEDURE Patient was brought to the operating room and placed supine on the OR table. Following the induction of adequate general endotracheal anesthesia and placement of appropriate monitoring devices, intraoperative vein mapping was performed which revealed marginal but usable-caliber conduit in bilateral thighs. The patient was then prepped and draped in standard sterile fashion. Next, 2500 units of intravenous heparin was given. The left greater saphenous vein was harvested endoscopically. This appeared to be a small but useable- caliber conduit. Simultaneously, a median sternotomy was performed and the left internal mammary artery dissected free off the posterior sternal table. The patient was systemically heparinized and anticoagulation monitored by serial ACT measurements. The internal mammary artery had good pulsatile flow in it and was a good-caliber conduit. The pericardium was then divided in the midline , the cradle created and targets analyzed. The heart was grossly and globally dilated with severe left ventricular dysfunction by intraoperative ITZEL and visualization. At this point, all anastomoses were performed in a beating-heart fashion using the Maquet stabilizing system. The left internal mammary artery was anastomosed to the mid LAD (2.25 mm) in an end-to-side fashion using 7-0 Prolene. The LAD was diffusely and heavily calcified through its entire course all the way to the apex. A relatively soft spot was identified in its mid aspect for grafting. Segment of saphenous vein graft was then anastomosed to a diffusely and heavily calcified OM2 (1.75 mm) in an end-to-side fashion using 7- 0 Prolene. The proximal anastomosis was then constructed to the ascending aorta in a running manner using 6-0 Prolene. All anastomotic sites were inspected and appeared to be hemostatic and patent. Protamine solution was given. Strict hemostasis was assured. Both pleural spaces were opened and 500 mls of serous fluid evacuated from the right space and an additional 500 from the left. The closure was undertaken. 2 chest tubes were placed. The pericardium was partially reapproximated in the midline. The sternum was approximated using sternal wires. The muscular and fascial layer were then closed in 3 layers. The endoscopic vein harvest site was closed in 2 layers. The patient tolerated the procedure well and was transferred to CVICU in stable condition. Muriel Tim MD Oct 03, 2017 11:34 <Electronically signed by Muriel Tim MD> Medications and IVs Current Medications Sodium Chloride (NS Flush) 2 ml UNSCH PRN IVF FLUSH AFTER USING IV ACCESS; Start 09/24/17 at 20:45; Stop 09/24/17 at 22:18; Status DC Nitroglycerin (Nitroglycerin 2% Oint) 0.5 inch Q6HR PRN TOPICAL CHEST PAIN; Start 09/24/17 at 22:15; Stop 10/05/17 at 09:21; Status DC Dextrose (D50w (Vial) Inj) 50 ml UNSCH PRN IV PUSH HYPOGLYCEMIA-SEE COMMENTS; Start 09/24/17 at 22:15; Stop 10/03/17 at 12:07; Status DC Glucagon (Glucagon Inj) 1 mg UNSCH PRN OTHER HYPOGLYCEMIA-SEE COMMENTS; Start 09/24/17 at 22:15; Stop 10/05/17 at 09:21; Status DC Insulin Aspart (NovoLOG SUPPLEMENTAL SCALE) 1 ACHS SLIDING SCALE SQ Last administered on 10/02/17at 22:17; Start 09/25/17 at 08:00; Stop 10/04/17 at 09:26; Status DC Sodium Chloride (NS Flush) 2 ml UNSCH PRN IV FLUSH FLUSH AFTER USING IV ACCESS Last administered on 09/30/17at 02:47; Start 09/24/17 at 22:15; Stop 10/03/17 at 11 :39; Status DC Sodium Chloride (NS Flush) 2 ml BID IV FLUSH Last administered on 10/02/17at 09: 12; Start 09/25/17 at 09:00; Stop 10/03/17 at 11:39; Status DC Ondansetron HCl (Zofran Inj) 4 mg Q6H PRN IVP NAUSEA OR VOMITING; Start at 22:15; Stop 10/03/17 at 12:07; Status DC Acetaminophen (Tylenol) 650 mg Q6H PRN PO PAIN SCALE 1 TO 2; Start 09/24/17 at 22:15 Acetaminophen/ Hydrocodone Bitart (Nunda 5-325 Mg) 1 tab Q4H PRN PO PAIN SCALE 3 TO 5 Last administered on 10/05/17at 17:46; Start 09/24/17 at 22:15 Morphine Sulfate (Morphine Inj) 2 mg Q3H PRN IV PUSH Pain 6-10; Start 09/24/17 at 22:15; Stop 10/05/17 at 09:21; Status DC Senna/Docusate Sodium (Janett-Colace) 1 tab BID PO Last administered on at 08:32; Start 09/25/17 at 09:00; Stop 10/05/17 at 14:04; Status DC Magnesium Hydroxide (Milk Of Magnesia Liq) 30 ml Q12H PRN PO Mild constipation ; Start 09/24/17 at 22:15; Stop 10/05/17 at 09:21; Status DC Sennosides (Senokot) 17.2 mg Q12H PRN PO Moderate constipation; Start 09/24/17 at 22:15; Stop 10/05/17 at 09:21; Status DC Bisacodyl (Dulcolax Supp) 10 mg DAILY PRN RECTAL SEVERE CONSITIPATION/ IF NPO ; Start 09/24/17 at 22:15; Stop 10/05/17 at 09:21; Status DC Lactulose (Lactulose Liq) 30 ml DAILY PRN PO SEVERE CONSITIPATION/ IF PO; Start 09/24/17 at 22:15 Alprazolam (Xanax) 0.25 mg Q8H PRN PO ANXIETY Last administered on 10/02/17at 01: 18; Start 09/25/17 at 01:15; Stop 10/05/17 at 09:21; Status DC Amiodarone HCl (Cordarone) 200 mg BID PO ; Start 09/25/17 at 09:00; Stop 10/03/17 at 12:08; Status DC Calcium Acetate (Phoslo) 1,334 mg TID PO Last administered on 10/06/17at 09:40; Start 09/25/17 at 09:00 Carvedilol (Coreg) 25 mg BID PO ; Start 09/25/17 at 09:00; Stop 09/25/17 at 15:45 ; Status DC Clonidine (Catapres) 0.1 mg BID PO ; Start 09/25/17 at 09:00; Status Future Hold Gabapentin (Neurontin) 100 mg TID PO Last administered on 10/06/17at 09:40; Start 09/25/17 at 09:00 Hydralazine HCl (Apresoline) 50 mg TID PO ; Start 09/25/17 at 09:00; Status Future Hold Isosorbide Mononitrate (Imdur) 60 mg DAILY@07 PO ; Start 09/25/17 at 07:00; Stop 10/05/17 at 09:21; Status DC Ticagrelor (Brilinta) 90 mg BID PO Last administered on 09/29/17at 09:34; Start 09/25/17 at 09:00; Stop 09/29/17 at 15:20; Status DC Sodium Chloride 500 ml @ 500 mls/hr BOLUS ONCE IV Last administered on at 02:48; Start 09/25/17 at 02:45; Stop 09/25/17 at 03:44; Status DC Dextrose/Sodium Chloride 500 ml @ 500 mls/hr BOLUS ONCE IV Last administered on 09/25/17at 04:14; Start 09/25/17 at 04:00; Stop 09/25/17 at 04:59; Status DC Nitroglycerin (Nitroglycerin 2% Oint) 1 inch Q6HR TOPICAL Last administered on 09/26/17at 17:53; Start 09/25/17 at 18:00; Stop 09/26/17 at 18:42; Status DC Carvedilol (Coreg) 25 mg Q12HR PO Last administered on 10/02/17at 09:11; Start at 21:00; Status Future Hold Aspirin (Aspirin Chew) 81 mg DAILY PO Last administered on 10/02/17at 09:12; Start 09/25/17 at 15:30; Stop 10/03/17 at 12:06; Status DC Sodium Chloride 1,000 ml @ 0 mls/hr Q0M PRN OTHER For Prime & Rinse Back; Start 09/26/17 at 14:46; Stop 10/03/17 at 11:39; Status DC Heparin Sodium (Porcine) (Heparin Inj) 8,000 units UNSCH PRN IV FLUSH WITH DIALYSIS; Start 09/26/17 at 15:00; Stop 10/03/17 at 11:39; Status DC Sodium Chloride 1,000 ml @ 200 mls/hr Q5H PRN IV WITH DIALYSIS; Start 09/26/17 at 14:46; Stop 10/03/17 at 11:39; Status DC Sodium Chloride 1,000 ml @ 0 mls/hr Q0M PRN OTHER WITH DIALYSIS; Start 09/26/17 at 14:46; Stop 10/03/17 at 11:39; Status DC Mannitol (Mannitol Inj) 12.5 gm UNSCH PRN IV WITH DIALYSIS; Start 09/26/17 at 15 :00; Stop 10/03/17 at 11:39; Status DC Albumin Human 100 ml @ 60 mls/hr UNSCH PRN IV WITH DIALYSIS; Start 09/26/17 at 15:00 Sodium Chloride (NS Flush) 5 ml UNSCH PRN IV FLUSH WITH DIALYSIS; Start at 15:00; Stop 10/03/17 at 11:39; Status DC Heparin Sodium (Porcine) (Heparin Inj) UNSCH PRN .XX WITH DIALYSIS; Start 09/26 at 15:00; Stop 10/03/17 at 11:39; Status DC Gentamicin Sulfate (Gentamicin Inj) 20 mg UNSCH PRN OTHER WITH DIALYSIS; Start 09/26/17 at 15:00; Stop 10/03/17 at 11:39; Status DC Ondansetron HCl (Zofran Inj) 4 mg UNSCH PRN IV PUSH WITH DIALYSIS; Start at 15:00; Stop 10/03/17 at 11:39; Status DC Acetaminophen (Tylenol) 650 mg UNSCH PRN PO for headach, pain, temp > 101F; Start 09/26/17 at 15:00; Stop 10/03/17 at 11:39; Status DC Diphenhydramine HCl (Benadryl) 25 mg UNSCH PRN PO for hives/itching/anaphylaxis ; Start 09/26/17 at 15:00; Stop 10/03/17 at 11:39; Status DC Nitroglycerin (Nitrostat Sl) 0.4 mg UNSCH PRN SL CHEST PAIN; Start 09/26/17 at 15:00; Stop 10/03/17 at 11:39; Status DC Clonidine (Catapres) 0.1 mg UNSCH PRN PO for BP > 180/100 X 2 readings; Start 09/26/17 at 15:00; Stop 10/03/17 at 11:39; Status DC Epoetin Abraham (Epogen Inj) 10,000 units UNSCH PRN IV PUSH WITH DIALYSIS Last administered on 09/29/17 16:28; Start 09/26/17 at 15:00; Stop 10/03/17 at 11:39; Status DC Gelatin (Gelfoam 12 Mm/7 Mm Top) 1 foam UNSCH PRN TOP SEE LABEL COMMENTS Last administered on 09/29/17at 16:27; Start 09/26/17 at 15:00; Stop 10/03/17 at 11:39; Status DC Heparin Sodium/ Sodium Chloride 2,000 ml @ As Directed STK-MED ONCE IV FLUSH Last administered on 09/29/17at 10:46; Start 09/29/17 at 10:46; Stop 09/29/17 at 10: 47; Status DC Verapamil HCl (Isoptin Inj) 5 mg STK-MED ONCE .ROUTE ; Start 09/29/17 at 10:46; Stop 09/29/17 at 10:47; Status DC Heparin Sodium (Porcine) (Heparin Inj) 10,000 units STK-MED ONCE .ROUTE ; Start 09/29/17 at 10:46; Stop 09/29/17 at 10:47; Status DC Nitroglycerin 5 ml @ As Directed STK-MED ONCE .ROUTE ; Start 09/29/17 at 10:46; Stop 09/29/17 at 10:47; Status DC Midazolam HCl (Versed Inj) 2 mg STK-MED ONCE .ROUTE Last administered on at 11:06; Start 09/29/17 at 10:58; Stop 09/29/17 at 10:59; Status DC Fentanyl Citrate (fentaNYL INJ) 100 mcg STK-MED ONCE .ROUTE Last administered on 09/29/17 11:07; Start 09/29/17 at 10:58; Stop 09/29/17 at 10:59; Status DC Heparin Sodium (Porcine) (Heparin Inj) 5,000 units UNSCH PRN IV PUSH APTT LESS THAN 25; Start 09/29/17 at 17:45; Stop 10/05/17 at 09:21; Status DC Heparin Sodium (Porcine) (Heparin Inj) 2,500 units UNSCH PRN IV PUSH APTT 25 TO 39 Last administered on 10/02/17at 12:59; Start 09/29/17 at 17:45; Stop at 09:21; Status DC Heparin Sodium/ Dextrose 250 ml @ 10 mls/hr TITRATE PRN IV Coagulation Management Last administered on 10/02/17at 09:22; Start 09/29/17 at 11:45; Stop 05/14 at 09:21; Status DC Iohexol (OMNIPAQUE 350 INJ (Air Traffic Control Equipment Repairer)) 50 ml STK-MED ONCE OTHER Last administered on 09/29/17at 13:30; Start 09/29/17 at 13:30; Stop 09/29/17 at 13:31; Status DC Benzonatate (Tessalon) 200 mg TID PRN PO COUGH Last administered on 10/04/17at 12:37; Start 09/29/17 at 19:00; Stop 10/05/17 at 09:21; Status DC Sodium Chloride (NS Flush) 2 ml BID IV FLUSH Last administered on 10/01/17at 20: 55; Start 09/30/17 at 21:00; Stop 10/02/17 at 09:41; Status DC Sodium Chloride (NS Flush) 2 ml UNSCH PRN IV FLUSH FLUSH AFTER USING IV ACCESS ; Start 09/30/17 at 14:30; Stop 10/02/17 at 09:41; Status DC Papaverine HCl 60 mg/Nitroglycerin 100 mcg/Verapamil HCl 100 mg/Sodium Chloride 120 ml @ 0 mls/hr CORE MANAGER IRRIGATION ; Start 09/30/17 at 14:30; Stop 10/07/17 at 14:29; Status Cancel Cefazolin Sodium 500 mg/Sodium Chloride 505 ml @ 0 mls/hr CORE MANAGER IRRIGATION Last administered on 10/03/17at 10:24; Start 09/30/17 at 14:30; Stop 10/05/17 at 09 :21; Status DC Cefazolin Sodium 2000 mg/Sodium Chloride 100 ml @ 200 mls/hr CORE MANAGER IV Last administered on 10/03/17at 08:31; Start 09/30/17 at 14:30; Stop 10/05/17 at 09:21; Status DC Metoprolol Tartrate (Lopressor) 12.5 mg CORE MANAGER PO ; Start 09/30/17 at 14:30; Stop 10/01/17 at 14:29; Status DC Chlorhexidine Gluconate (Hibiclens 4% Top Soln) 1 applic CORE MANAGER TOPICAL Last administered on 10/03/17at 07:25; Start 09/30/17 at 14:30; Stop 10/05/17 at 09:21; Status DC Insulin Human Regular 100 units/ Sodium Chloride 100 ml @ 3 mls/hr TITRATE PRN IV for blood glucose control; Start 09/30/17 at 14:30; Stop 10/03/17 at 12:07; Status DC Dextrose (D50w (Vial) Inj) 50 ml UNSCH PRN IV PUSH HYPOGLYCEMIA-SEE COMMENTS; Start 09/30/17 at 14:30; Stop 10/03/17 at 12:07; Status DC Papaverine HCl 60 mg/Nitroglycerin 100 mcg/Verapamil HCl 100 mg/Sodium Chloride 100 ml @ 0 mls/hr CORE MANAGER IRRIGATION Last administered on 10/03/17at 10:29; Start 10/02/17 at 18:15; Stop 10/05/17 at 09:21; Status DC Lactated Ringer's 1,000 ml @ 30 mls/hr Q24H PRN IV SEE LABEL COMMENTS; Start at 00:15; Stop 10/05/17 at 09:21; Status DC Sodium Chloride 500 ml @ 30 mls/hr [id number] PRN IV SEE LABEL COMMENTS; Start 10/03/17 at 00:15; Stop 10/06/17 at 00:14; Status DC Povidone Iodine (Betadine 5% Antisepsis Kit) 1 applic CORE MANAGER PRN EACH NARE SEE LABEL COMMENTS; Start 10/03/17 at 00:15; Stop 10/05/17 at 09:21; Status DC Chlorhexidine Gluconate (Chlorhexidine 2% Cloth) 3 pack CORE MANAGER PRN TOPICAL SEE LABEL COMMENTS; Start 10/03/17 at 00:15; Stop 10/05/17 at 09:21; Status DC Heparin Sodium (Porcine) (Heparin Inj) 20,000 units STK-MED ONCE .ROUTE Last administered on 10/03/17at 09:00; Start 10/03/17 at 06:25; Stop 10/03/17 at 06:26; Status DC Heparin Sodium (Porcine) (Heparin Inj) 20,000 units STK-MED ONCE .ROUTE Last administered on 10/03/17at 08:34; Start 10/03/17 at 06:25; Stop 10/03/17 at 06:26; Status DC Cefazolin Sodium (Ancef Inj) 2,000 mg STK-MED ONCE .ROUTE ; Start 10/03/17 at 06: 25; Stop 10/03/17 at 06:26; Status DC Vancomycin HCl (Vancomycin Inj) 3,000 mg STK-MED ONCE .ROUTE Last administered on 10/03/17at 08:34; Start 10/03/17 at 06:25; Stop 10/03/17 at 06:26; Status DC Fentanyl Citrate (fentaNYL INJ) 1,000 mcg STK-MED ONCE .ROUTE ; Start 10/03/17 at 07:07; Stop 10/03/17 at 07:08; Status DC Midazolam HCl (Versed Inj) 10 mg STK-MED ONCE .ROUTE ; Start 10/03/17 at 07:07; Stop 10/03/17 at 07:08; Status DC Sodium Chloride (NS Flush) 2 ml BID IV FLUSH Last administered on 10/06/17at 09: 51; Start 10/03/17 at 21:00 Sodium Chloride (NS Flush) 2 ml UNSCH PRN IV FLUSH FLUSH AFTER USING IV ACCESS ; Start 10/03/17 at 11:30 Dexmedetomidine HCl 200 mcg/ Sodium Chloride 52 ml @ 5.4 mls/hr TITRATE PRN IV SEDATION; Start 10/03/17 at 11:30 Nitroglycerin/ Dextrose 250 ml @ 1.5 mls/hr TITRATE PRN IV Maintain BP < 140/ 90 mmHg; Start 10/03/17 at 11:30; Stop 10/05/17 at 09:21; Status DC Dobutamine HCl/ Dextrose 250 ml @ 0 mls/hr Q0M PRN IV Rate change per MD Last administered on 10/03/17at 15:22; Start 10/03/17 at 11:24; Stop 10/04/17 at 02:54; Status DC Dopamine HCl/ Dextrose 500 ml @ 0 mls/hr TITRATE PRN IV Maintain MAP > 65 mmHg ; Start 10/03/17 at 11:30; Stop 10/05/17 at 09:21; Status DC Phenylephrine HCl 40 mg/Dextrose 500 ml @ 30 mls/hr TITRATE PRN IV Maintain MAP > 65 mmHg Last administered on 10/04/17at 06:39; Start 10/03/17 at 11:30; Stop 10/04/17 at 08:36; Status DC Clevidipine 50 ml @ 2 mls/hr TITRATE PRN IV Maintain BP < 140/90 mmHg; Start at 11:30; Stop 10/05/17 at 09:21; Status DC Albumin Human 250 ml @ 250 mls/hr UNSCH PRN IV SEE LABEL COMMENTS Last administered on 10/04/17at 03:24; Start 10/03/17 at 11:30; Stop 10/05/17 at 09:21 ; Status DC Lactated Ringer's 500 ml @ 500 mls/hr Q1H PRN IV SEE LABEL COMMENTS; Start 10/03 at 11:24; Stop 10/05/17 at 09:21; Status DC Miscellaneous Information (Post-op Orders (for Pharmacy)) STAT ONCE OTHER Last administered on 10/03/17at 11:30; Start 10/03/17 at 11:30; Stop 10/03/17 at 14: 13; Status DC Aspirin (Aspirin Chew) 81 mg DAILY PO Last administered on 10/06/17at 09:41; Start 10/04/17 at 09:00 Clopidogrel Bisulfate (Plavix) 75 mg DAILY PO Last administered on 10/05/17at 08 :32; Start 10/04/17 at 09:00 Pantoprazole Sodium (Protonix) 40 mg DAILY@06 PO Last administered on at 06:00; Start 10/04/17 at 06:00 Amiodarone HCl (Cordarone) 200 mg Q12HR PO Last administered on 10/06/17at 09:41 ; Start 10/03/17 at 21:00 Acetaminophen (Tylenol) 650 mg Q4H PRN PO TEMPERATURE > 101 F; Start 10/03/17 at 11:30 Acetaminophen (Tylenol Supp) 650 mg Q4H PRN RECTAL TEMPERATURE > 101 F; Start 10/03/17 at 11:30; Stop 10/05/17 at 09:21; Status DC Acetaminophen 100 ml @ 400 mls/hr Q6H IV Last administered on 10/04/17at 05:48 ; Start 10/03/17 at 13:00; Stop 10/04/17 at 07:14; Status DC Morphine Sulfate (Morphine Inj) 1 mg Q10M PRN IV PUSH PAIN SCALE 1 TO 5; Start 10/03/17 at 11:30; Stop 10/05/17 at 09:21; Status DC Meperidine HCl (Demerol Inj) 12.5 mg Q4H PRN IV PUSH SEE LABEL COMMENTS; Start 10/03/17 at 11:30; Stop 10/05/17 at 09:21; Status DC Oxycodone/ Acetaminophen (Percocet 5-325 Mg) 2 tab Q3H PRN PO PAIN SCALE 6 TO 10 Last administered on 10/06/17at 00:14; Start 10/03/17 at 11:30 Fentanyl Citrate (fentaNYL INJ) 25 mcg Q1H PRN IV PUSH BREAKTHROUGH PAIN Last administered on 10/04/17at 15:27; Start 10/03/17 at 11:30; Stop 10/05/17 at 09:21 ; Status DC Ondansetron HCl (Zofran Inj) 4 mg Q6H PRN IV PUSH NAUSEA OR VOMITING; Start 10/03/17 at 11:30 Hydralazine HCl (Apresoline Inj) 10 mg Q4H PRN IV PUSH SEE LABEL COMMENTS; Start 10/03/17 at 11:30 Metoprolol Tartrate (Lopressor Inj) 2.5 mg Q1H PRN IV PUSH SEE LABEL COMMENTS; Start 10/03/17 at 11:30; Stop 10/05/17 at 09:21; Status DC Potassium Chloride 100 ml @ 50 mls/hr UNSCH PRN IV SEE LABEL COMMENTS Last administered on 10/03/17at 13:07; Start 10/03/17 at 11:30; Stop 10/03/17 at 13:07; Status DC Potassium Chloride 100 ml @ 50 mls/hr UNSCH PRN IV SEE LABEL COMMENTS; Start 10/03/17 at 11:30; Stop 10/05/17 at 09:21; Status DC Potassium Chloride 100 ml @ 50 mls/hr UNSCH PRN IV SEE LABEL COMMENTS; Start 10/03/17 at 11:30; Stop 10/05/17 at 09:21; Status DC Potassium Chloride (KCl) 20 meq UNSCH PRN PO SEE LABEL COMMENTS; Start 10/03/17 at 11:30; Stop 10/05/17 at 09:21; Status DC Potassium Chloride (KCl) 40 meq UNSCH PRN PO SEE LABEL COMMENTS; Start 10/03/17 at 11:30; Stop 10/05/17 at 09:21; Status DC Magnesium Sulfate 2 gm/Sodium Chloride 104 ml @ 100 mls/hr UNSCH PRN IV SEE LABEL COMMENTS; Start 10/03/17 at 11:30; Stop 10/05/17 at 09:21; Status DC Magnesium Sulfate 2 gm/Sodium Chloride 104 ml @ 50 mls/hr UNSCH PRN IV SEE LABEL COMMENTS; Start 10/03/17 at 11:30; Stop 10/05/17 at 09:21; Status DC Calcium Chloride 1 gm/Sodium Chloride 110 ml @ 100 mls/hr UNSCH PRN IV SEE LABEL COMMENTS Last administered on 10/03/17at 13:01; Start 10/03/17 at 11:30; Stop 10/05/17 at 09:21; Status DC Calcium Chloride (Calcium Chloride Inj) 0.5 gm UNSCH PRN IV PUSH SEE LABEL COMMENTS; Start 10/03/17 at 11:30; Stop 10/05/17 at 09:21; Status DC Insulin Human Regular 100 units/ Sodium Chloride 100 ml @ 3 mls/hr TITRATE PRN IV for blood glucose control Last administered on 10/03/17at 16:00; Start 10/03/17 at 11:30; Stop 10/05/17 at 09:21; Status DC Dextrose (D50w (Vial) Inj) 50 ml UNSCH PRN IV PUSH HYPOGLYCEMIA-SEE COMMENTS Last administered on 10/03/17at 13:07; Start 10/03/17 at 11:30; Stop 10/05/17 at 09 :21; Status DC Cefazolin Sodium/ Dextrose 50 ml @ 100 mls/hr Q8H IV ; Start 10/03/17 at 13:00; Stop 10/03/17 at 21:49; Status DC Sodium Bicarbonate (Sodium Bicarbonate 8.4% Inj) 50 meq UNSCH PRN IV PUSH SEE LABEL COMMENTS; Start 10/03/17 at 11:30; Stop 10/05/17 at 09:21; Status DC Sodium Bicarbonate (Sodium Bicarbonate 8.4% Inj) 100 meq UNSCH PRN IV PUSH SEE LABEL COMMENTS; Start 10/03/17 at 11:30; Stop 10/05/17 at 09:21; Status DC Albuterol/ Ipratropium (Duoneb Neb) 1 ampule Q6HR NEB NEB Last administered on 10/04/17at 09:21; Start 10/03/17 at 16:00; Stop 10/04/17 at 09:22; Status DC Albuterol/ Ipratropium (Duoneb Neb) 1 ampule Q2HR NEB PRN NEB WHEEZING; Start 10/03/17 at 11:30 Racepinephrine (Racepinephrine 2.25% Neb) 0.5 ml UNSCH X1 PRN NEB STRIDOR; Start 10/03/17 at 11:30; Stop 10/04/17 at 11:29; Status DC Cefazolin Sodium (Ancef Inj) 1,000 mg ONCE ONCE IV ; Start 10/03/17 at 12:30; Stop 10/03/17 at 14:15; Status DC Cefazolin Sodium 1000 mg/Sodium Chloride 100 ml @ 200 mls/hr ONCE ONCE IV ; Start 10/03/17 at 12:30; Stop 10/03/17 at 14:14; Status DC Cefazolin Sodium 2000 mg/Sodium Chloride 120 ml @ 100 mls/hr Q24H IV Last administered on 10/05/17at 08:51; Start 10/04/17 at 08:00; Stop 10/05/17 at 09:11 ; Status DC Dobutamine HCl 250 mg/Dextrose 250 ml @ 0 mls/hr Q0M PRN IV Rate change per MD Last administered on 10/04/17at 15:36; Start 10/04/17 at 03:00; Stop 10/05/17 at 09:21; Status DC Phenylephrine HCl 160 mg/Dextrose 500 ml @ 7.5 mls/hr TITRATE PRN IV Blood Pressure Management Last administered on 10/04/17at 15:35; Start 10/04/17 at 08: 45 Terbutaline Sulfate (Brethine Inj) 1 mg UNSCH PRN SQ FOR EXTRAVASATION PROTOCOL ; Start 10/04/17 at 08:45; Stop 10/05/17 at 09:21; Status DC Albuterol/ Ipratropium (Duoneb Neb) 1 ampule Q6HR WHILE AWAKE NEB NEB Last administered on 10/05/17at 07:36; Start 10/04/17 at 14:00; Stop 10/05/17 at 09:38 ; Status DC Docusate Sodium (Colace) 100 mg BID PO ; Start 10/05/17 at 21:00; Stop 10/05/17 at 21:00; Status DC Multivitamins/ Minerals Therapeutic (Theragran M Tab) 1 tab DAILY PO Last administered on 10/05/17at 08:32; Start 10/04/17 at 09:00; Stop 10/05/17 at 09:40 ; Status DC Bisacodyl (Dulcolax Supp) 10 mg UNSCH PRN RECTAL SEE LABEL COMMENTS; Start 04/13 at 08:45; Stop 10/05/17 at 09:41; Status DC Polyethylene Glycol (Miralax) 17 gm DAILY PO ; Start 10/06/17 at 09:00; Stop 06/13 at 09:00; Status DC Sennosides (Senokot) 8.6 mg HS PO Last administered on 10/05/17at 20:46; Start 10/05/17 at 21:00 Sodium Biphosphate/ Sodium Phosphate (Fleets Enema (Adult)) 118 ml UNSCH PRN RECTAL SEE LABEL COMMENTS; Start 10/04/17 at 08:45; Stop 10/05/17 at 09:40; Status DC Insulin Detemir (Levemir Inj) 5 units ONCE ONCE SQ Last administered on at 10:07; Start 10/04/17 at 08:45; Stop 10/04/17 at 09:23; Status DC Insulin Aspart (NovoLOG SUPPLEMENTAL SCALE) 1 02,06,10,14,18,22 SQ Last administered on 10/04/17at 22:00; Start 10/04/17 at 10:00; Stop 10/05/17 at 06:01 ; Status DC Dextrose (D50w (Vial) Inj) 50 ml UNSCH PRN IV PUSH HYPOGLYCEMIA-SEE COMMENTS; Start 10/04/17 at 08:45; Stop 10/05/17 at 09:21; Status DC Glucagon (Glucagon Inj) 1 mg UNSCH PRN OTHER HYPOGLYCEMIA-SEE COMMENTS; Start 10/04/17 at 08:45; Stop 10/05/17 at 09:40; Status DC Insulin Aspart (NovoLOG SUPPLEMENTAL SCALE) 1 ACHS SQ Last administered on 10/06at 11:59; Start 10/05/17 at 08:00 Atorvastatin Calcium (Lipitor) 40 mg HS PO Last administered on 10/05/17at 20:45 ; Start 10/04/17 at 21:00 Epoetin Abraham (Epogen Inj) 10,000 units UNSCH PRN IV PUSH WITH DIALYSIS; Start 10/04/17 at 15:00 Albuterol/ Ipratropium (Duoneb Neb) 1 ampule Q6HR WHILE AWAKE NEB NEB Last administered on 10/06/17at 07:18; Start 10/05/17 at 14:00; Stop 10/07/17 at 13:59 Docusate Sodium (Colace) 100 mg BID PO Last administered on 10/06/17at 09:40; Start 10/05/17 at 21:00 Multivitamins/ Minerals Therapeutic (Theragran M Tab) 1 tab DAILY PO Last administered on 10/06/17at 09:41; Start 10/05/17 at 09:30 Bisacodyl (Dulcolax Supp) 10 mg UNSCH PRN RECTAL SEE LABEL COMMENTS; Start 05/14 at 09:30 Polyethylene Glycol (Miralax) 17 gm DAILY PO Last administered on 10/06/17at 09: 40; Start 10/06/17 at 09:00 Sodium Biphosphate/ Sodium Phosphate (Fleets Enema (Adult)) 118 ml UNSCH PRN RECTAL SEE LABEL COMMENTS; Start 10/05/17 at 09:30 Dextrose (D50w (Vial) Inj) 50 ml UNSCH PRN IV PUSH HYPOGLYCEMIA-SEE COMMENTS; Start 10/05/17 at 09:30 Glucagon (Glucagon Inj) 1 mg UNSCH PRN OTHER HYPOGLYCEMIA-SEE COMMENTS; Start 10/05/17 at 09:30 Midodrine (Proamatine) 5 mg TID@07,12,17 PO Last administered on 10/06/17at 11: 59; Start 10/05/17 at 09:30 Calcium Gluconate (Calcium Gluconate Inj) 1 gm ONCE ONCE IV PUSH Last administered on 10/06/17at 11:00; Start 10/06/17 at 11:00; Stop 10/06/17 at 11:01 ; Status DC Sodium Bicarbonate (Sodium Bicarbonate 8.4% Inj) 50 meq ONCE ONCE IV PUSH Last administered on 10/06/17at 11:07; Start 10/06/17 at 11:00; Stop 10/06/17 at 11:01; Status DC A/P Problem List: (1) NSTEMI (non-ST elevation myocardial infarction) ICD Code: I21.4 - Non-ST elevation (NSTEMI) myocardial infarction Status: Acute (2) Ischemic cardiomyopathy ICD Code: I25.5 - Ischemic cardiomyopathy Status: Chronic (3) ESRD (end stage renal disease) ICD Code: N18.6 - End stage renal disease Status: Acute (4) DM (diabetes mellitus) ICD Code: E11.9 - Type 2 diabetes mellitus without complications Assessment and Plan 57-year-old male with: 1. NSTEMI: c/o chest pain, recent NSTEMI s/p PCI, now w/ Trop 0.74, - Cardiology following. Concerned about restonosis. Cardiology planning for repeat heart cath depending on follow up INR levels. - Continue Aspirin, BRILINTA ON HOLD-CABG ON 10-03 Had cardiac catheterization September 29 post-cath, found to have restenosis of LM/ LAD/LCx stent-- SP CABG X2 ON 10-03 2. Ischemic Cardiomyopathy: Echo 08/03/17 w/ EF 40-45%, CXR w/ no acute findings. Resume home medications. Monitor I/O. 3. DM: Sliding scale w/ Accu-Cheks. 4. ESRD on HD: T//Sat. Nephrology, Dr. Corona following. Obesity weight loss recommended 5. DVT Prophylaxis: On COUMADIN AND BRILINTA ON HOLD- Follow INR in am. Coumadin is on hold at this time on heparin drip currently A.m. labs INCREASE ACTIVITY DW RN AND PT Discharge Planning PENDING CARDIAC AND CVS AND NEPHROLOGY CLEARANCE AM LABS Jason Craig DO Oct 06, 2017 12:30
--- NOTE | 2017-10-06 12:36 | HHI.NPPN ---
Subjective General Problems: Anemia, Edema, Heart Disease, Hypertension Renal Failure: End Stage Renal Disease History of Present Illness 57-year-old male with past medical history of ischemic heart disease, hypertension, cardiomyopathy, end-stage renal disease, on hemodialysis 3 times per week, diabetes mellitus, came to the hospital with a complaint of recurrent chest pain. I was called to see the patient because of management of dialysis. The patient has a known history of ischemic heart disease and congestive heart failure. Additional Remarks Patient is sitting up in chair. Pain well controlled. Denies any shortness of breath. Dialysis planned today. (Racquel Hooks) Review of Systems General Constitutional: Fatigue (Racquel Hooks) Respiratory Respiratory Remarks No SOB (Racquel Hooks) Gastrointestinal GI Remarks Denies any abdominal pain (Racquel Hooks) Objective Data Data Vital Signs Date Time Temp Pulse Resp B/P (MAP) Pulse Ox O2 Delivery O2 Flow Rate FiO2 10/06/17 07:18 99 Nasal Cannula 2.00 10/06/17 07:00 98.7 68 12 100/70 (80) 99 10/06/17 07:00 70 10/06/17 07:00 100 Nasal Cannula 2.00 10/06/17 03:00 75 10/06/17 03:00 97.9 75 22 107/62 (77) 94 10/06/17 03:00 96 Nasal Cannula 2.00 10/06/17 01:20 22 10/05/17 23:00 97 Nasal Cannula 2.00 10/05/17 23:00 98.2 74 18 105/68 (80) 97 10/05/17 23:00 72 10/05/17 19:48 97 Nasal Cannula 2.00 10/05/17 19:00 96 Nasal Cannula 2.00 10/05/17 19:00 97.8 74 22 108/69 (82) 97 10/05/17 19:00 74 10/05/17 19:00 20 10/05/17 15:00 97 Nasal Cannula 2.00 10/05/17 15:00 97.8 74 18 107/68 (81) 97 Arterial Line 10/05/17 15:00 73 (Racquel Hooks) -: 10/06/17 0529 10/06/17 0529 Imaging Last Impressions Chest X-Ray 10/04/17 0500 Signed Impressions: Service Date/Time: Wednesday, October 04, 2017 03:30 - CONCLUSION: 1. Status post CABG. 2. Minimal bibasilar densities likely atelectasis. Jaylan Burgos MD Lower Extremity Ultrasound 09/30/17 0000 Signed Impressions: Service Date/Time: Saturday, September 30, 2017 15:06 - CONCLUSION: 1. Possible old , mural nonocclusive thrombus in the proximal right greater saphenous vein. 2. Otherwise, greater saphenous veins are patent bilaterally with measurements as above. Lloyd Rodríguez MD (GellerRacquel purvis M. LAND ACQUISITION ANALYST) Physical Exam General Appearance: No Acute Distress, Comfortable (GellermannAdalgisaRacquel M. LAND ACQUISITION ANALYST) Eyes Eye Exam: Pupils Equal (GellermannAdalgisaRacquel M. LAND ACQUISITION ANALYST) Throat Throat Exam: Oral Mucosa [place] & Moist (GellermannAdalgisaRacquel M. LAND ACQUISITION ANALYST) Neck Neck Exam: Neck Supple (GellermannAdalgisaRacquel M. LAND ACQUISITION ANALYST) Pulmonary Resp Exam: Breath Sounds Equal, No Distress, Decreased Bases (GellermannAdalgisaRacquel M. LAND ACQUISITION ANALYST) Cardiology CV Exam: Regular, Normal Sinus Rhythm (GellermannAdalgisaRacquel M. LAND ACQUISITION ANALYST) Gastrointestinal/Abdomen GI Exam: Soft, Non-Tender, Bowel Sounds Present (GellermannRacquel M. LAND ACQUISITION ANALYST) Integumentary Skin Exam: Clear, Warm (GellermannRacquel M. LAND ACQUISITION ANALYST) Extremeties Extremities Exam: Trace Edema (GellermannRacquel M. LAND ACQUISITION ANALYST) Neurologic Neuro Exam: Alert, Awake, Oriented (GellermannRacquel M. LAND ACQUISITION ANALYST) Psychiatric Psych Exam: Appropriate Responses (GellerAdalgisa purvisne M. LAND ACQUISITION ANALYST) Assessment/Plan Discussed Condition With: Daughter Assessment Summary: Anemia of CKD, CHF, Hypertension, End Stage Renal Disease Problem List: (1) ESRD on hemodialysis ICD Codes: N18.6 - End stage renal disease; Z99.2 - Dependence on renal dialysis Plan: ESRD HD on //TUE Patient has significant IHD and has low EF. S/P heart cath found to have restenosis of his complex PCI cardiac surgery consulted S/P CABG 10/03/17 X 2 Plan Continue phoslo Epogen with dialysis Continue Midodrine Hyperkalemic with potassium level of 6. Calcium gluconate and NaHCO3 given. Dialysis planned for today. (2) DM (diabetes mellitus) ICD Codes: E11.9 - Type 2 diabetes mellitus without complications (3) Ischemic cardiomyopathy ICD Codes: I25.5 - Ischemic cardiomyopathy Status: Chronic (4) NSTEMI (non-ST elevation myocardial infarction) ICD Codes: I21.4 - Non-ST elevation (NSTEMI) myocardial infarction Status: Acute (5) Hyperlipidemia ICD Codes: E78.5 - Hyperlipidemia, unspecified Status: Chronic (6) Anemia ICD Codes: D64.9 - Anemia, unspecified Status: Chronic (7) HTN (hypertension) ICD Codes: I10 - Essential (primary) hypertension Status: Chronic (8) Multi-vessel coronary artery stenosis ICD Codes: I25.10 - Atherosclerotic heart disease of [place] coronary artery without angina pectoris Plan (Racquel Hooks) Problem List: (1) ESRD on hemodialysis ICD Codes: N18.6 - End stage renal disease; Z99.2 - Dependence on renal dialysis Plan: ESRD HD on Patient has significant IHD and has low EF. S/P heart cath found to have restenosis of his complex PCI cardiac surgery consulted S/P CABG 10/03/17 X 2 Plan Continue phoslo Epogen with dialysis Continue Midodrine Hyperkalemic with potassium level of 6. Calcium gluconate and NaHCO3 given. Dialysis planned for today. Patient seen and examined, agree with above. Breathing is much better. (2) DM (diabetes mellitus) ICD Codes: E11.9 - Type 2 diabetes mellitus without complications (3) Ischemic cardiomyopathy ICD Codes: I25.5 - Ischemic cardiomyopathy Status: Chronic (4) NSTEMI (non-ST elevation myocardial infarction) ICD Codes: I21.4 - Non-ST elevation (NSTEMI) myocardial infarction Status: Acute (5) Hyperlipidemia ICD Codes: E78.5 - Hyperlipidemia, unspecified Status: Chronic (6) Anemia ICD Codes: D64.9 - Anemia, unspecified Status: Chronic (7) HTN (hypertension) ICD Codes: I10 - Essential (primary) hypertension Status: Chronic (8) Multi-vessel coronary artery stenosis ICD Codes: I25.10 - Atherosclerotic heart disease of [place] coronary artery without angina pectoris (Jeana Corona MD) Racquel Hooks Oct 06, 2017 12:36 Jeana Corona MD Oct 06, 2017 18:11
[2017-10-06] MEDS: EPOETIN ALFA 10,000 UNITS/ML VIAL IV PUSH PRN (13:12)
[2017-10-06] MEDS: ALBUMIN 25% INJ 100 ML IV PRN ×3 (13:35→15:20)
--- NOTE | 2017-10-06 16:30 | PD.CAR.PN ---
CVT Progress Note Subjective/Hospital Course: 57-year-old patient of Dr. Hernandez who has history of end-stage renal disease , who was last seen by ourselves, Dr. Tim, on 04/13/2017. He is a patient of Dr. Hernandez who at that time was ruled in for a non-STEMI, underwent cardiac catheterization by Dr. Aguilar. At that time, he had a 60% left main, proximal LAD 70-80%, diagonal was 90, the OM was 100, RCA 100. We were consulted at that time and the films were evaluated. He had a very poor ejection fraction with EF of 25% and had very poor targets. He was turned down for cardiovascular surgery. He, however, went under complex Impella support of the left main, LAD and circumflex. He developed restenosis and had a repeat revascularization procedure in 07/2017 involving laser atherectomy, cutting balloon and balloon angioplasty. He has been this time complaining of shortness of breath, substernal discomfort. On admission in the ER, his troponin was 0.74. He has been on Brilinta and Coumadin. He underwent cardiac catheterization by Dr. May, which showed 70% left main, proximal LAD 90%, mid distal LAD 30, diagonal 20%, the circuit was 95%, the OM 30 and the RCA 95%. EF approximately 45% on the cath. He also had an echocardiogram, which showed an EF of 50-55%, some mild LVH, mild mitral regurgitation, trace AI. We were consulted to reevaluate for coronary artery bypass grafting. PAST MEDICAL HISTORY: Includes coronary artery disease with multiple interventions, end-stage renal disease, on dialysis Tuesday, , Tuesday by Dr. Corona, diabetes mellitus, hypertension, hyperlipidemia. HX of Afib was on coumadin at home surgery: 10/03 Urgent Off-pump Coronary Artery Bypass Grafting x 2 with Left Internal Mammary Artery (SANDERSON) to Left Anterior Descending (LAD), reverse saphenous vein graft to the Obtuse Marginal 2 (OM2) branch of the Left Circumflex artery, Left Leg Endoscopic Vein [place], Drainage of Pleural Effusions. EF 35% extubated after surgery crystalloid 2200cc, cell saver, 1200cc EBL 630cc 10/04 , pt had coagulopathy after surgery drained total 1400cc/ 24hrs 550cc/ last 12 hrs , received 1 unit PRBC, 1 unit cryo, 2 units FFP, 1 unit PLT HGB 8.2 remains on dobutamine and kb gtt will transfuse one unit with dialysis this am no BB, no merrill with labile BP on ASA, plavix, amiodarone will need to resume coumadin when chest tubes out, then dc plavix when INR > 2.0 10/05 for dialysis in am , weaned off Kb gtt/ started on midodrine wean 02 , will need rehab at discharge OOB/ PT leave chest tubes in / drained 160cc/ 12hrs leave in ICU today 10/06 chest tubes removed without difficulty re-start coumadin this pm / dc plavix, continue ASA received dialysis today , given albumin during course midodrine increased, will transfer to stepdown Objective: GENERAL: A&O SKIN: Warm and dry. prevena to chest , incision intact to leg HEAD: Normocephalic. EYES: No scleral icterus. No injection or drainage. NECK: Supple, trachea midline. No JVD or lymphadenopathy. CARDIOVASCULAR: Regular rate and rhythm without murmurs, gallops, or rubs. RESPIRATORY: Breath sounds equal bilaterally. No accessory muscle use. diminished in bases GASTROINTESTINAL: Abdomen soft, non-tender, nondistended. MUSCULOSKELETAL: No cyanosis, or edema. BACK: Nontender without obvious deformity. No CVA tenderness. Vital Signs Date Time Temp Pulse Resp B/P (MAP) Pulse Ox O2 Delivery O2 Flow Rate FiO2 10/06/17 11:00 98.0 67 20 104/57 (73) 99 10/06/17 11:00 67 10/06/17 07:18 99 Nasal Cannula 2.00 10/06/17 07:00 98.7 68 12 100/70 (80) 99 10/06/17 07:00 70 10/06/17 07:00 100 Nasal Cannula 2.00 10/06/17 03:00 75 10/06/17 03:00 97.9 75 22 107/62 (77) 94 10/06/17 03:00 96 Nasal Cannula 2.00 10/06/17 01:20 22 10/05/17 23:00 97 Nasal Cannula 2.00 10/05/17 23:00 98.2 74 18 105/68 (80) 97 10/05/17 23:00 72 10/05/17 19:48 97 Nasal Cannula 2.00 10/05/17 19:00 96 Nasal Cannula 2.00 10/05/17 19:00 97.8 74 22 108/69 (82) 97 10/05/17 19:00 74 10/05/17 19:00 20 Labs: Laboratory Tests Test 10/06/17 05:29 White Blood Count 9.2 TH/MM3 (4.0-11.0) Red Blood Count 2.79 MIL/MM3 (4.50-5.90) Hemoglobin 9.0 GM/DL (13.0-17.0) Hematocrit 26.7 % (39.0-51.0) Mean Corpuscular Volume 95.5 FL (80.0-100.0) Mean Corpuscular Hemoglobin 32.3 PG (27.0-34.0) Mean Corpuscular Hemoglobin Concent 33.8 % (32.0-36.0) Red Cell Distribution Width 17.1 % (11.6-17.2) Platelet Count 125 TH/MM3 (150-450) Mean Platelet Volume 9.0 FL (7.0-11.0) Neutrophils (%) (Auto) 80.9 % (16.0-70.0) Lymphocytes (%) (Auto) 6.9 % (9.0-44.0) Monocytes (%) (Auto) 9.4 % (0.0-8.0) Eosinophils (%) (Auto) 2.3 % (0.0-4.0) Basophils (%) (Auto) 0.5 % (0.0-2.0) Neutrophils # (Auto) 7.4 TH/MM3 (1.8-7.7) Lymphocytes # (Auto) 0.6 TH/MM3 (1.0-4.8) Monocytes # (Auto) 0.9 TH/MM3 (0-0.9) Eosinophils # (Auto) 0.2 TH/MM3 (0-0.4) Basophils # (Auto) 0.0 TH/MM3 (0-0.2) CBC Comment DIFF FINAL Differential Comment Prothrombin Time 13.4 SEC (9.8-11.6) Prothromb Time International Ratio 1.3 RATIO Blood Urea Nitrogen 65 MG/DL (7-18) Creatinine 10.89 MG/DL (0.60-1.30) Random Glucose 207 MG/DL (74-106) Calcium Level 8.7 MG/DL (8.5-10.1) Magnesium Level 2.5 MG/DL (1.5-2.5) Sodium Level 133 MEQ/L (136-145) Potassium Level 6.0 MEQ/L (3.5-5.1) Chloride Level 96 MEQ/L (98-107) Carbon Dioxide Level 28.5 MEQ/L (21.0-32.0) Anion Gap 9 MEQ/L (5-15) Estimat Glomerular Filtration Rate 5 ML/MIN (>89) Result Diagram: 10/06/1752810/06/17528 Telemetry: NSR (1) Multi-vessel coronary artery stenosis (2) NSTEMI (non-ST elevation myocardial infarction) (3) S/P CABG x 2 Plan: on ASA, plavix , amiodarone, statin increase midodrine start coumadin OOB as tolerated transfer to [facility] [place] for rehab at discharge (4) Ischemic cardiomyopathy Plan: EF 35% , start MERRILL when BP tolerates (5) ESRD (end stage renal disease) Plan: dialysis today (6) DM (diabetes mellitus) Plan: insulin sliding scale add bid levemir (7) Hyperlipidemia Plan: statin (8) HTN (hypertension) (9) Blood loss anemia Plan: transfuse one unit PRBC with dialysis this am Lottie Monteiro Oct 06, 2017 16:30
[2017-10-06] MEDS: WARFARIN SOD 3 MG TAB PO SCH (17:23)
[2017-10-06] MEDS: ACETAMINOPHEN/HYDROcodone 325 MG/5 MG TAB PO PRN (18:48)
[2017-10-06] MEDS: ATORVASTATIN 40 MG TAB PO SCH (21:07)
[2017-10-06] MEDS: SENNOSIDES 8.6 MG TAB PO SCH (21:07)
--- NOTE | 2017-10-06 22:24 | PD.CARD.PN ---
Subjective Subjective Remarks Patient was seen earlier today, late entry note Kb drip off Doing well, on HD Chest tubes out Objective Medications Current Medications Medications (Trade) Dose Ordered Sig/Taj Route Start Time Stop Time Status Last Admin (Tylenol) 650 mg Q6H PRN PO 09/24/17 22:15 ([place] 5-325 Mg) 1 tab Q4H PRN PO 09/24/17 22:15 10/06/17 18:48 (Lactulose Liq) 30 ml DAILY PRN PO 09/24/17 22:15 (Phoslo) 1,334 mg TID PO 09/25/17 09:00 10/06/17 17:26 (Catapres) 0.1 mg BID PO 09/25/17 09:00 Future Hold (Neurontin) 100 mg TID PO 09/25/17 09:00 10/06/17 17:26 (Apresoline) 50 mg TID PO 09/25/17 09:00 Future Hold (Coreg) 25 mg Q12HR PO 09/25/17 21:00 Future Hold 10/02/17 09:11 Albumin Human 100 ml @ 60 mls/hr UNSCH PRN IV 09/26/17 15:00 10/06/17 15:20 (NS Flush) 2 ml BID IV FLUSH 10/03/17 21:00 10/06/17 21:07 (NS Flush) 2 ml UNSCH PRN IV FLUSH 10/03/17 11:30 (Aspirin Chew) 81 mg DAILY PO 10/04/17 09:00 10/06/17 09:41 (Protonix) 40 mg DAILY@06 PO 10/04/17 06:00 10/06/17 06:00 (Cordarone) 200 mg Q12HR PO 10/03/17 21:00 10/06/17 21:08 (Tylenol) 650 mg Q4H PRN PO 10/03/17 11:30 (Percocet 5-325 Mg) 2 tab Q3H PRN PO 10/03/17 11:30 10/06/17 21:08 (Zofran Inj) 4 mg Q6H PRN IV PUSH 10/03/17 11:30 (Apresoline Inj) 10 mg Q4H PRN IV PUSH 10/03/17 11:30 (Duoneb Neb) 1 ampule Q2HR NEB PRN NEB 10/03/17 11:30 (Senokot) 8.6 mg HS PO 10/05/17 21:00 10/06/17 21:07 (NovoLOG SUPPLEMENTAL SCALE) 1 ACHS SQ 10/05/17 08:00 10/06/17 21:06 (Lipitor) 40 mg HS PO 10/04/17 21:00 10/06/17 21:07 (Epogen Inj) 10,000 units UNSCH PRN IV PUSH 10/04/17 15:00 10/06/17 13:12 (Duoneb Neb) 1 ampule Q6HR WHILE AWAKE NEB NEB 10/05/17 14:00 10/07/17 13:59 10/06/17 20:06 (Colace) 100 mg BID PO 10/05/17 21:00 10/06/17 21:06 (Theragran M Tab) 1 tab DAILY PO 10/05/17 09:30 10/06/17 09:41 (Dulcolax Supp) 10 mg UNSCH PRN RECTAL 10/05/17 09:30 (Miralax) 17 gm DAILY PO 10/06/17 09:00 10/06/17 09:40 (Fleets Enema (Adult)) 118 ml UNSCH PRN RECTAL 10/05/17 09:30 (D50w (Vial) Inj) 50 ml UNSCH PRN IV PUSH 10/05/17 09:30 (Glucagon Inj) 1 mg UNSCH PRN OTHER 10/05/17 09:30 (Proamatine) 10 mg TID@07,12,17 PO 10/06/17 17:00 10/06/17 17:11 (Coumadin) 3 mg DAILY@16 PO 10/06/17 17:00 10/06/17 17:23 Vital Signs / I&O Vital Signs Date Time Temp Pulse Resp B/P (MAP) Pulse Ox O2 Delivery O2 Flow Rate FiO2 10/06/17 20:07 98 Nasal Cannula 2.00 10/06/17 15:00 98.6 61 12 109/58 (75) 98 10/06/17 15:00 98 Nasal Cannula 2.00 10/06/17 15:00 61 10/06/17 11:00 98.0 67 20 104/57 (73) 99 10/06/17 11:00 99 Nasal Cannula 2.00 10/06/17 11:00 67 10/06/17 07:18 99 Nasal Cannula 2.00 10/06/17 07:00 98.7 68 12 100/70 (80) 99 10/06/17 07:00 70 10/06/17 07:00 100 Nasal Cannula 2.00 10/06/17 03:00 75 10/06/17 03:00 97.9 75 22 107/62 (77) 94 10/06/17 03:00 96 Nasal Cannula 2.00 10/06/17 01:20 22 10/05/17 23:00 97 Nasal Cannula 2.00 10/05/17 23:00 98.2 74 18 105/68 (80) 97 10/05/17 23:00 72 I/O 10/05/17 10/05/17 10/05/17 10/06/17 10/06/17 10/06/17 07:00 15:00 23:00 07:00 15:00 23:00 Intake Total 479 ml 120 ml 960 ml 240 ml 200 ml 580 ml Output Total 160 ml 420 ml 160 ml 1130 ml Balance 319 ml 120 ml 540 ml 80 ml 200 ml -550 ml Intake Oral 200 ml 960 ml 240 ml 480 ml IV Total 279 ml 120 ml 200 ml 100 ml Output Urine Total 0 ml 100 ml Chest Tube Drainage Total 160 ml 420 ml 60 ml 130 ml Hemodialysis 1000 ml # Voids 1 1 # Bowel Movements 0 0 0 Physical Exam GENERAL: NAD, AAOx3 SKIN: Warm and dry. HEAD: Atraumatic. Normocephalic. EYES: Pupils equal and round. No scleral icterus. No injection or drainage. ENT: No nasal bleeding or discharge. Mucous membranes pink and moist. NECK: Trachea midline. No JVD. CARDIOVASCULAR: Regular rate and rhythm. RESPIRATORY: No accessory muscle use. Clear to auscultation. Breath sounds equal bilaterally. GASTROINTESTINAL: Abdomen soft, non-tender, nondistended. Hepatic and splenic margins not palpable. MUSCULOSKELETAL: Extremities without clubbing, cyanosis, or edema. No obvious deformities. Right femoral no hematoma NEUROLOGICAL: No focal deficits Laboratory Laboratory Tests Test 10/06/17 05:29 White Blood Count 9.2 TH/MM3 Red Blood Count 2.79 MIL/MM3 Hemoglobin 9.0 GM/DL Hematocrit 26.7 % Mean Corpuscular Volume 95.5 FL Mean Corpuscular Hemoglobin 32.3 PG Mean Corpuscular Hemoglobin Concent 33.8 % Red Cell Distribution Width 17.1 % Platelet Count 125 TH/MM3 Mean Platelet Volume 9.0 FL Neutrophils (%) (Auto) 80.9 % Lymphocytes (%) (Auto) 6.9 % Monocytes (%) (Auto) 9.4 % Eosinophils (%) (Auto) 2.3 % Basophils (%) (Auto) 0.5 % Neutrophils # (Auto) 7.4 TH/MM3 Lymphocytes # (Auto) 0.6 TH/MM3 Monocytes # (Auto) 0.9 TH/MM3 Eosinophils # (Auto) 0.2 TH/MM3 Basophils # (Auto) 0.0 TH/MM3 CBC Comment DIFF FINAL Differential Comment Prothrombin Time 13.4 SEC Prothromb Time International Ratio 1.3 RATIO Blood Urea Nitrogen 65 MG/DL Creatinine 10.89 MG/DL Random Glucose 207 MG/DL Calcium Level 8.7 MG/DL Magnesium Level 2.5 MG/DL Sodium Level 133 MEQ/L Potassium Level 6.0 MEQ/L Chloride Level 96 MEQ/L Carbon Dioxide Level 28.5 MEQ/L Anion Gap 9 MEQ/L Estimat Glomerular Filtration Rate 5 ML/MIN Assessment and Plan Problem List: (1) Multi-vessel coronary artery stenosis ICD Codes: I25.10 - Atherosclerotic heart disease of [place] coronary artery without angina pectoris (2) NSTEMI (non-ST elevation myocardial infarction) ICD Codes: I21.4 - Non-ST elevation (NSTEMI) myocardial infarction Status: Acute (3) S/P CABG x 2 ICD Codes: Z95.1 - Presence of aortocoronary bypass graft (4) Ischemic cardiomyopathy ICD Codes: I25.5 - Ischemic cardiomyopathy Status: Chronic (5) ESRD (end stage renal disease) ICD Codes: N18.6 - End stage renal disease Status: Acute (6) DM (diabetes mellitus) ICD Codes: E11.9 - Type 2 diabetes mellitus without complications (7) Hyperlipidemia ICD Codes: E78.5 - Hyperlipidemia, unspecified Status: Chronic (8) HTN (hypertension) ICD Codes: I10 - Essential (primary) hypertension Status: Chronic (9) 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
[2017-10-07] VITALS (9 sets, daily range): BP systolic 87–103; BP diastolic 48–63; PULSE 56–65; RESP 15–20; TEMP 97.4–97.9; O2SAT 95–98
[2017-10-07] MEDS: oxyCODONE/ACETAMINOPHEN 5 MG/325 MG TAB PO PRN ×2 (02:34→23:00)
[2017-10-07 05:31] LABS: AUTOMATED NEUTROPHIL # 4.4 TH/MM3 (1.8-7.7); BASOPHIL # 0.1 TH/MM3 (0-0.2); BASOPHIL % 1.1 % (0.0-2.0); EOSINOPHIL # 0.2 TH/MM3 (0-0.4); EOSINOPHIL % 3.8 % (0.0-4.0); HEMATOCRIT 25.4 % (39.0-51.0); HEMOGLOBIN 8.5 GM/DL (13.0-17.0); LYMPH % 9.3 % (9.0-44.0); LYMPHOCYTE # 0.5 TH/MM3 (1.0-4.8); MEAN CELL VOLUME 95.6 FL (80.0-100.0); MEAN CORPUSCULAR HGB CONC 33.5 % (32.0-36.0); MEAN PLATELET VOLUME 9.1 FL (7.0-11.0); MONO % 11.7 % (0.0-8.0); MONOCYTE # 0.7 TH/MM3 (0-0.9); NEUT % 74.1 % (16.0-70.0); PLATELET COUNT 122 TH/MM3 (150-450); RED BLOOD COUNT 2.66 MIL/MM3 (4.50-5.90); RED CELL DISTRIBUTION WIDTH 16.9 % (11.6-17.2); WHITE BLOOD COUNT 5.9 TH/MM3 (4.0-11.0)
[2017-10-07 05:37] LABS: INTERNATIONAL NORMALIZED RATIO 1.3 RATIO; PROTHROMBIN TIME - PATIENT 13.1 SEC (9.8-11.6)
[2017-10-07 06:07] LABS: ALKALINE PHOSPHATASE 89 U/L (45-117); ALT (GPT) 9 U/L (12-78); AST (GOT) 43 U/L (15-37); BICARBONATE 33.8 MEQ/L (21.0-32.0); BLOOD UREA NITROGEN 47 MG/DL (7-18); CALCIUM 8.3 MG/DL (8.5-10.1); CHLORIDE 99 MEQ/L (98-107); CREATININE 8.42 MG/DL (0.60-1.30); GLOMERULAR FILTRATION RATE 7 ML/MIN (>89); GLUCOSE,RANDOM 157 MG/DL (74-106); MAGNESIUM 2.6 MG/DL (1.5-2.5); PHOSPHORUS 5.6 MG/DL (2.5-4.9); SODIUM (NA) 140 MEQ/L (136-145); TOTAL BILIRUBIN ADULT 0.6 MG/DL (0.2-1.0); TOTAL PROTEIN 6.3 GM/DL (6.4-8.2)
--- NOTE | 2017-10-07 06:34 | RADRPT ---
EXAM DATE/TIME: 10/07/2017 05:43 [facility] COMPARISON: CHEST SINGLE AP, October 04, 2017, 3:30. INDICATIONS : Chest tube removal- Rule out pneumothorax. MEDICAL HISTORY : Myocardial infarction SURGICAL HISTORY : CABG. ENCOUNTER: Subsequent ACUITY: 1 day PAIN SCORE: Non-responsive. LOCATION: Bilateral chest FINDINGS: There has been interval removal of thoracostomy tubes. There is no evidence of pneumothorax or other complication. There is persistent mild perihilar and basilar parenchymal opacity, left worse than rig ht. Cardiac contours are grossly unchanged. CONCLUSION: Thoracostomy tube removal without pneumothorax Noam Sparks MD on October 07, 2017 at 6:31 Board Certified Radiologist. This report was verified electronically.
[2017-10-07] MEDS: RESP: ALBUTEROL 2.5 MG/IPRATROPIUM 0.5 MG NEB (SCH) NEB ×2 (07:17→12:46)
[2017-10-07] MEDS: MIDODRINE 5 MG TAB PO SCH ×3 (07:52→16:18)
[2017-10-07] MEDS: PANTOPRAZOLE SOD 40 MG DELAYED RELEASE TAB PO SCH (07:52)
[2017-10-07] MEDS: INSULIN ASPART SUPPLEMENTAL SCALE SQ SCH ×4 (08:42→20:29)
[2017-10-07] MEDS: POLYETHYLENE GLYCOL 17 GM PKG PO SCH (09:20)
[2017-10-07] MEDS: GABAPENTIN 100 MG CAP PO SCH ×3 (09:20→16:18)
[2017-10-07] MEDS: MULTIVITAMINS/MINERALS THERAPEUTIC TAB PO SCH (09:20)
[2017-10-07] MEDS: DOCUSATE SODIUM 100 MG CAP PO SCH ×2 (09:20→20:29)
[2017-10-07] MEDS: ASPIRIN 81 MG CHEW TAB PO SCH (09:20)
[2017-10-07] MEDS: CALCIUM ACETATE 667 MG CAP PO SCH ×3 (09:20→19:20)
[2017-10-07] MEDS: SODIUM CHLORIDE 0.9% FLUSH 10 ML FLUSH IV FLUSH SCH ×2 (09:21→20:29)
--- NOTE | 2017-10-07 09:28 | HHI.PR ---
Subjective Remarks The pt was sitting up in a chair. He was about to work with PT. He said his pain was controlled. He has not had a BM in four days. No other acute complaints. Discussed with CTS. Objective Vitals Vital Signs Date Time Temp Pulse Resp B/P (MAP) Pulse Ox O2 Delivery O2 Flow Rate FiO2 10/07/17 07:17 98 Nasal Cannula 3.00 10/07/17 07:00 98 Nasal Cannula 2.00 10/07/17 07:00 97.7 61 18 97/63 (74) 98 10/07/17 03:00 61 10/07/17 03:00 97.8 65 16 103/48 (66) 97 10/07/17 03:00 97 Nasal Cannula 2.00 10/06/17 23:00 96 Nasal Cannula 2.00 10/06/17 23:00 98.7 66 16 104/63 (77) 97 10/06/17 23:00 66 10/06/17 20:07 98 Nasal Cannula 2.00 10/06/17 20:00 99 Nasal Cannula 2.00 10/06/17 20:00 99.4 68 16 107/60 (76) 98 10/06/17 19:00 70 10/06/17 15:00 98.6 61 12 109/58 (75) 98 10/06/17 15:00 98 Nasal Cannula 2.00 10/06/17 15:00 61 10/06/17 11:00 98.0 67 20 104/57 (73) 99 10/06/17 11:00 99 Nasal Cannula 2.00 10/06/17 11:00 67 I/O 10/06/17 10/06/17 10/06/17 10/07/17 10/07/17 10/07/17 07:00 15:00 23:00 07:00 15:00 23:00 Intake Total 240 ml 200 ml 580 ml 480 ml Output Total 160 ml 1130 ml 200 ml Balance 80 ml 200 ml -550 ml 280 ml Intake Oral 240 ml 480 ml 480 ml IV Total 200 ml 100 ml Output Urine Total 100 ml 200 ml Chest Tube Drainage Total 60 ml 130 ml Hemodialysis 1000 ml # Voids 1 0 # Bowel Movements 0 Result Diagram: 10/07/17 0406 10/07/17 0406 Imaging Last Impressions Chest X-Ray 10/07/17 0600 Signed Impressions: Service Date/Time: Saturday, October 07, 2017 05:43 - CONCLUSION: Thoracostomy tube removal without pneumothorax Noam Sparks MD Lower Extremity Ultrasound 09/30/17 0000 Signed Impressions: Service Date/Time: Saturday, September 30, 2017 15:06 - CONCLUSION: 1. Possible old , mural nonocclusive thrombus in the proximal right greater saphenous vein. 2. Otherwise, greater saphenous veins are patent bilaterally with measurements as above. Lloyd Rodríguez MD Objective Remarks GENERAL: NAD. SKIN: Warm and dry. HEAD: Atraumatic. Normocephalic. EYES: Pupils equal and round. No scleral icterus. No injection or drainage. Extraocular muscles intact ENT: No nasal bleeding or discharge. Mucous membranes pink and moist. Tongue is midline NECK: Trachea midline. No JVD. Supple. CARDIOVASCULAR: Regular rate and rhythm. S1-S2 no S3 or S4. RESPIRATORY: No accessory muscle use. Clear to auscultation. Breath sounds equal bilaterally. GASTROINTESTINAL: Abdomen soft, non-tender, nondistended. Hepatic and splenic margins not palpable. MUSCULOSKELETAL: Extremities without clubbing, cyanosis, or edema. No obvious deformities. Right upper extremity AV fistula with good thrill and bruit in the forearm. NEUROLOGICAL: Awake and alert. No obvious cranial nerve deficits. Motor grossly within normal limits. Five out of 5 muscle strength in the arms and legs. Normal speech. PSYCHIATRIC: Appropriate mood and affect; insight and judgment normal. Procedures Hemodialysis 4-5 cardiac catheterization Post-cath, found to have restenosis of LM/LAD/LCx stent --cardio vascular surgery has been consulted DATE OF PROCEDURE: 09/29/2017. PROCEDURE: Left heart catheterization, coronary angiogram, moderate sedation 25 minutes, Vascade femoral closure. PREPROCEDURE DIAGNOSES: [id number] myocardial infarction, coronary artery disease. POSTPROCEDURE DIAGNOSIS: Coronary artery disease, restenosis of left main/left anterior descending/left circumflex stents. MEDICATIONS: Versed 0.5 mg, fentanyl 25 mcg. CONTRAST USED: 35 mL FLUOROSCOPY: 1.2 minutes. MODERATE SEDATION: 25 minutes. ESTIMATED BLOOD LOSS: 10 mL. PROCEDURAL SUMMARY: Dandy Singleton is a pleasant 57-year-old male whom I see in the office and presented to [facility] due to chest pain. He was found to have an elevated troponin and recommended cardiac catheterization. Risks, benefits and alternatives were explained to him and he consented to such. He was brought to the lab and prepped in the usual sterile fashion. Left femoral artery was accessed using modified Seldinger technique and placement of a 5-Finnish sheath. This was easily aspirated and flushed. A JR4 was advanced over a J-wire to the ascending aorta and across the aortic valve for measurement of left ventricular pressure. This was pulled back across the aortic valve, showing no significant gradient of aortic stenosis. The JR4 was used for selective angiography of the right coronary artery system. This was then exchanged for a JL4, which was used for selective angiography of the left coronary artery system. The JL4 was removed over a J-wire. Vascade femoral closure device was used for the arteriotomy. 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 FINDINGS: Left main stent patent with 70% in-stent restenosis. It bifurcates into an LAD and circumflex. LAD stent and the stent from the left main into the LAD has a 90% in-stent restenosis. Mid to distal stent is patent. Distally, the vessel has diffuse 30% disease. Left circumflex stent from left main into left circumflex has a 95% restenosis. Stent in the mid portion is patent with no significant disease. It gives off 2 obtuse marginals with no significant disease. RCA is a normal size vessel with 30% disease throughout the proximal portion. Distally, the vessel is diffusely diseased of 80% to 90% throughout with subtotal occlusions. LVEDP 30. IMPRESSION: 1. Non-ST elevation myocardial infarction. 2. Coronary artery disease with complex percutaneous coronary intervention of left main, left anterior descending and left circumflex previously. RECOMMENDATIONS: 1. Mr. Singleton presented again with an elevated troponin and once again was found to have restenosis of his complex PCI. 2. As the last time I attempted to use laser arthrectomy and cutting balloons and still had restenosis, as well as now the vessels have increased in size distally due to better flow, I think that he should undergo consideration of coronary artery bypass grafting. 3. I have discussed this with CT surgery and they will see him in consultation. 4. Due to the significance of his disease, he will be placed on a heparin drip 5 hours after sheath was removed. 5. We will plan on rechecking an echo to look at his overall left ventricular function in anticipation of coronary artery bypass grafting. 6. His Brilinta will be held for anticipated coronary artery bypass grafting. 7. If at any time he has significant chest pain or becomes hemodynamically or electrically unstable, he will be taken back to the agricultural labor [employer] manager emergently for placement of intraaortic balloon pump. 8. We will plan on having him undergo hemodialysis after cardiac catheterization. Thank you for allowing me to see Dandy Singleton. If there are any questions, please do not hesitate to call. Date of Surgery: Oct 03, 2017 Preoperative Diagnosis: Postoperative Diagnosis: Procedure: 1. Urgent Off-pump Coronary Artery Bypass Grafting x 2 with Left Internal Mammary Artery (SANDERSON) to Left Anterior Descending (LAD), reverse saphenous vein graft to the Obtuse Marginal 2 (OM2) branch of the Left Circumflex artery 2. Left Leg Endoscopic Vein [place] 3. Intraoperative Vein Mapping 4. Drainage of Pleural Effusions. Surgeon: Muriel Tim Coil Tier(s): Giorgio Chandra Operation and Findings: PREPROCEDURE DIAGNOSES 1. Severe Multi Vessel Coronary Artery Disease. 2. Acute Myocardial Infarction (NSTEMI) 3. Severe Left Ventricular Dysfunction (EF 35%) POSTPROCEDURE DIAGNOSES Same SURGICAL PROCEDURE 1. Urgent Off-pump Coronary Artery Bypass Grafting x 2 with Left Internal Mammary Artery (SANDERSON) to Left Anterior Descending (LAD), reverse saphenous vein graft to the Obtuse Marginal 2 (OM2) branch of the Left Circumflex artery 2. Left Leg Endoscopic Vein [place] 3. Intraoperative Vein Mapping 4. Drainage of Pleural Effusions. SURGEON Muriel Tim MD DOT NET ARCHITECT Cynthia Russo, JULIANNE Chandra PA-C ANESTHESIA General endotracheal SUPERVISORY AIDE Agustin Villegas, ROMIE Felix MD PREPARATION ChloraPrep. COUNTS Needle, sponge, and instrument counts were correct. DRAINS Two 32-Finnish mediastinal tubes. COMPLICATIONS None. INDICATIONS FOR PROCEDURE The patient is a 57-year-old presenting with chest pain and AMI. Patient was noted to have multi-vessel coronary artery disease. The patient is being brought to the operating room for surgical revascularization therapy. PROCEDURE Patient was brought to the operating room and placed supine on the OR table. Following the induction of adequate general endotracheal anesthesia and placement of appropriate monitoring devices, intraoperative vein mapping was performed which revealed marginal but usable-caliber conduit in bilateral thighs. The patient was then prepped and draped in standard sterile fashion. Next, 2500 units of intravenous heparin was given. The left greater saphenous vein was harvested endoscopically. This appeared to be a small but useable- caliber conduit. Simultaneously, a median sternotomy was performed and the left internal mammary artery dissected free off the posterior sternal table. The patient was systemically heparinized and anticoagulation monitored by serial ACT measurements. The internal mammary artery had good pulsatile flow in it and was a good-caliber conduit. The pericardium was then divided in the midline , the cradle created and targets analyzed. The heart was grossly and globally dilated with severe left ventricular dysfunction by intraoperative ITZEL and visualization. At this point, all anastomoses were performed in a beating-heart fashion using the HeyBubble stabilizing system. The left internal mammary artery was anastomosed to the mid LAD (2.25 mm) in an end-to-side fashion using 7-0 Prolene. The LAD was diffusely and heavily calcified through its entire course all the way to the apex. A relatively soft spot was identified in its mid aspect for grafting. Segment of saphenous vein graft was then anastomosed to a diffusely and heavily calcified OM2 (1.75 mm) in an end-to-side fashion using 7- 0 Prolene. The proximal anastomosis was then constructed to the ascending aorta in a running manner using 6-0 Prolene. All anastomotic sites were inspected and appeared to be hemostatic and patent. Protamine solution was given. Strict hemostasis was assured. Both pleural spaces were opened and 500 mls of serous fluid evacuated from the right space and an additional 500 from the left. The closure was undertaken. 2 chest tubes were placed. The pericardium was partially reapproximated in the midline. The sternum was approximated using sternal wires. The muscular and fascial layer were then closed in 3 layers. The endoscopic vein harvest site was closed in 2 layers. The patient tolerated the procedure well and was transferred to CVICU in stable condition. Muriel Tim MD Oct 03, 2017 11:34 <Electronically signed by Muriel Tim MD> Medications and IVs Current Medications Medications (Trade) Dose Ordered Sig/Taj Route Start Time Stop Time Status Last Admin (Tylenol) 650 mg Q6H PRN PO 09/24/17 22:15 ([place] 5-325 Mg) 1 tab Q4H PRN PO 09/24/17 22:15 10/06/17 18:48 (Lactulose Liq) 30 ml DAILY PRN PO 09/24/17 22:15 (Phoslo) 1,334 mg TID PO 09/25/17 09:00 10/06/17 17:26 (Catapres) 0.1 mg BID PO 09/25/17 09:00 Future Hold (Neurontin) 100 mg TID PO 09/25/17 09:00 10/06/17 17:26 (Apresoline) 50 mg TID PO 09/25/17 09:00 Future Hold (Coreg) 25 mg Q12HR PO 09/25/17 21:00 Future Hold 10/02/17 09:11 Albumin Human 100 ml @ 60 mls/hr UNSCH PRN IV 09/26/17 15:00 10/06/17 15:20 (NS Flush) 2 ml BID IV FLUSH 10/03/17 21:00 10/06/17 21:07 (NS Flush) 2 ml UNSCH PRN IV FLUSH 10/03/17 11:30 (Aspirin Chew) 81 mg DAILY PO 10/04/17 09:00 10/06/17 09:41 (Protonix) 40 mg DAILY@06 PO 10/04/17 06:00 10/07/17 07:52 (Tylenol) 650 mg Q4H PRN PO 10/03/17 11:30 (Percocet 5-325 Mg) 2 tab Q3H PRN PO 10/03/17 11:30 10/07/17 02:34 (Zofran Inj) 4 mg Q6H PRN IV PUSH 10/03/17 11:30 (Apresoline Inj) 10 mg Q4H PRN IV PUSH 10/03/17 11:30 (Duoneb Neb) 1 ampule Q2HR NEB PRN NEB 10/03/17 11:30 (Senokot) 8.6 mg HS PO 10/05/17 21:00 10/06/17 21:07 (NovoLOG SUPPLEMENTAL SCALE) 1 ACHS SQ 10/05/17 08:00 10/07/17 08:42 (Lipitor) 40 mg HS PO 4/10/18 21:00 10/06/17 21:07 (Epogen Inj) 10,000 units UNSCH PRN IV PUSH 10/04/17 15:00 10/06/17 13:12 (Duoneb Neb) 1 ampule Q6HR WHILE AWAKE NEB NEB 10/05/17 14:00 10/07/17 13:59 10/07/17 07:17 (Colace) 100 mg BID PO 10/05/17 21:00 10/06/17 21:06 (Theragran M Tab) 1 tab DAILY PO 10/05/17 09:30 10/06/17 09:41 (Dulcolax Supp) 10 mg UNSCH PRN RECTAL 10/05/17 09:30 (Miralax) 17 gm DAILY PO 10/06/17 09:00 10/06/17 09:40 (Fleets Enema (Adult)) 118 ml UNSCH PRN RECTAL 10/05/17 09:30 (D50w (Vial) Inj) 50 ml UNSCH PRN IV PUSH 10/05/17 09:30 (Glucagon Inj) 1 mg UNSCH PRN OTHER 10/05/17 09:30 (Proamatine) 10 mg TID@07,12,17 PO 10/06/17 17:00 10/07/17 07:52 (Coumadin) 3 mg DAILY@16 PO 10/06/17 17:00 10/06/17 17:23 A/P Problem List: (1) NSTEMI (non-ST elevation myocardial infarction) ICD Code: I21.4 - Non-ST elevation (NSTEMI) myocardial infarction Status: Acute (2) Ischemic cardiomyopathy ICD Code: I25.5 - Ischemic cardiomyopathy Status: Chronic (3) ESRD (end stage renal disease) ICD Code: N18.6 - End stage renal disease Status: Acute (4) DM (diabetes mellitus) ICD Code: E11.9 - Type 2 diabetes mellitus without complications Assessment and Plan NSTEMI The pt had a recent NSTEMI, s/p PCI. Troponin was elevated. Cardiology was consulted. Concerned about restonosis. Had cardiac catheterization September 29, found to have restenosis of LM/LAD/LCx stent. Cardiothoracic surgery was consulted. S/p CABG X2 ON 10/04/17. Chest tube has been removed. - management per CTS. - rehab efforts. - IS. - pain control with a bowel regimen. Ischemic cardiomyopathy Echo 08/03/17 w/ EF 40-45%, CXR w/ no acute findings. - cardiac regimen per cardiology. - telemetry. - Is and Os. DM Glucose well controlled at this time. - Sliding scale w/ Accu-Cheks. ESRD On HD T//Tue. - Nephrology, Dr. Corona following. Anemia Chronic, exacerbated by surgery. - follow CBC. DVT Prophylaxis: Per surgery. Coumadin has been resumed Discharge Planning D/c when cleared by Dandy Urias DO Oct 07, 2017 09:28
--- NOTE | 2017-10-07 10:40 | PD.CAR.PN ---
CVT Progress Note Subjective/Hospital Course: 57-year-old patient of Dr. Hernandez who has history of end-stage renal disease , who was last seen by ourselves, Dr. Tim, on 04/13/2017. He is a patient of Dr. Hernandez who at that time was ruled in for a non-STEMI, underwent cardiac catheterization by Dr. Aguilar. At that time, he had a 60% left main, proximal LAD 70-80%, diagonal was 90, the OM was 100, RCA 100. We were consulted at that time and the films were evaluated. He had a very poor ejection fraction with EF of 25% and had very poor targets. He was turned down for cardiovascular surgery. He, however, went under complex Impella support of the left main, LAD and circumflex. He developed restenosis and had a repeat revascularization procedure in 07/2017 involving laser atherectomy, cutting balloon and balloon angioplasty. He has been this time complaining of shortness of breath, substernal discomfort. On admission in the ER, his troponin was 0.74. He has been on Brilinta and Coumadin. He underwent cardiac catheterization by Dr. May, which showed 70% left main, proximal LAD 90%, mid distal LAD 30, diagonal 20%, the circuit was 95%, the OM 30 and the RCA 95%. EF approximately 45% on the cath. He also had an echocardiogram, which showed an EF of 50-55%, some mild LVH, mild mitral regurgitation, trace AI. We were consulted to reevaluate for coronary artery bypass grafting. PAST MEDICAL HISTORY: Includes coronary artery disease with multiple interventions, end-stage renal disease, on dialysis Tuesday, , Tuesday by Dr. Corona, diabetes mellitus, hypertension, hyperlipidemia. HX of Afib was on coumadin at home surgery: 10/03 Urgent Off-pump Coronary Artery Bypass Grafting x 2 with Left Internal Mammary Artery (SANDERSON) to Left Anterior Descending (LAD), reverse saphenous vein graft to the Obtuse Marginal 2 (OM2) branch of the Left Circumflex artery, Left Leg Endoscopic Vein [place], Drainage of Pleural Effusions. EF 35% extubated after surgery crystalloid 2200cc, cell saver, 1200cc EBL 630cc 10/04 , pt had coagulopathy after surgery drained total 1400cc/ 24hrs 550cc/ last 12 hrs , received 1 unit PRBC, 1 unit cryo, 2 units FFP, 1 unit PLT HGB 8.2 remains on dobutamine and kb gtt will transfuse one unit with dialysis this am no BB, no merrill with labile BP on ASA, plavix, amiodarone will need to resume coumadin when chest tubes out, then dc plavix when INR > 2.0 10/05 for dialysis in am , weaned off Kb gtt/ started on midodrine wean 02 , will need rehab at discharge OOB/ PT leave chest tubes in / drained 160cc/ 12hrs leave in ICU today 10/06 chest tubes removed without difficulty re-start coumadin this pm / dc plavix, continue ASA received dialysis today , given albumin during course midodrine increased, will transfer to stepdown 10/07 coumadin resumed pt weak , PT/OT will need rehab at discharge HR lower side, will not tolerate BB, amiodarone dc on Midodrine Objective: GENERAL: A&O x 3 , very flat affect SKIN: Warm and dry.prevena to chest , incision intact to left leg HEAD: Normocephalic. EYES: No scleral icterus. No injection or drainage. NECK: Supple, trachea midline. No JVD or lymphadenopathy. CARDIOVASCULAR: Regular rate and rhythm without murmurs, gallops, or rubs. RESPIRATORY: Breath sounds equal bilaterally. No accessory muscle use. few crackles in the bases GASTROINTESTINAL: Abdomen soft, non-tender, nondistended. MUSCULOSKELETAL: No cyanosis, or edema. BACK: Nontender without obvious deformity. No CVA tenderness. Vital Signs Date Time Temp Pulse Resp B/P (MAP) Pulse Ox O2 Delivery O2 Flow Rate FiO2 10/07/17 07:17 98 Nasal Cannula 3.00 10/07/17 07:00 98 Nasal Cannula 2.00 10/07/17 07:00 97.7 61 18 97/63 (74) 98 10/07/17 03:00 61 10/07/17 03:00 97.8 65 16 103/48 (66) 97 10/07/17 03:00 97 Nasal Cannula 2.00 10/06/17 23:00 96 Nasal Cannula 2.00 10/06/17 23:00 98.7 66 16 104/63 (77) 97 10/06/17 23:00 66 10/06/17 20:07 98 Nasal Cannula 2.00 10/06/17 20:00 99 Nasal Cannula 2.00 10/06/17 20:00 99.4 68 16 107/60 (76) 98 10/06/17 19:00 70 10/06/17 15:00 98.6 61 12 109/58 (75) 98 10/06/17 15:00 98 Nasal Cannula 2.00 10/06/17 15:00 61 10/06/17 11:00 98.0 67 20 104/57 (73) 99 10/06/17 11:00 99 Nasal Cannula 2.00 10/06/17 11:00 67 Labs: Laboratory Tests Test 10/07/17 04:06 White Blood Count 5.9 TH/MM3 (4.0-11.0) Red Blood Count 2.66 MIL/MM3 (4.50-5.90) Hemoglobin 8.5 GM/DL (13.0-17.0) Hematocrit 25.4 % (39.0-51.0) Mean Corpuscular Volume 95.6 FL (80.0-100.0) Mean Corpuscular Hemoglobin 32.0 PG (27.0-34.0) Mean Corpuscular Hemoglobin Concent 33.5 % (32.0-36.0) Red Cell Distribution Width 16.9 % (11.6-17.2) Platelet Count 122 TH/MM3 (150-450) Mean Platelet Volume 9.1 FL (7.0-11.0) Neutrophils (%) (Auto) 74.1 % (16.0-70.0) Lymphocytes (%) (Auto) 9.3 % (9.0-44.0) Monocytes (%) (Auto) 11.7 % (0.0-8.0) Eosinophils (%) (Auto) 3.8 % (0.0-4.0) Basophils (%) (Auto) 1.1 % (0.0-2.0) Neutrophils # (Auto) 4.4 TH/MM3 (1.8-7.7) Lymphocytes # (Auto) 0.5 TH/MM3 (1.0-4.8) Monocytes # (Auto) 0.7 TH/MM3 (0-0.9) Eosinophils # (Auto) 0.2 TH/MM3 (0-0.4) Basophils # (Auto) 0.1 TH/MM3 (0-0.2) CBC Comment DIFF FINAL Differential Comment Prothrombin Time 13.1 SEC (9.8-11.6) Prothromb Time International Ratio 1.3 RATIO Blood Urea Nitrogen 47 MG/DL (7-18) Creatinine 8.42 MG/DL (0.60-1.30) Random Glucose 157 MG/DL (74-106) Total Protein 6.3 GM/DL (6.4-8.2) Albumin 3.0 GM/DL (3.4-5.0) Calcium Level 8.3 MG/DL (8.5-10.1) Phosphorus Level 5.6 MG/DL (2.5-4.9) Magnesium Level 2.6 MG/DL (1.5-2.5) Alkaline Phosphatase 89 U/L (45-117) Aspartate Amino Transf (AST/SGOT) 43 U/L (15-37) Alanine Aminotransferase (ALT/SGPT) 9 U/L (12-78) Total Bilirubin 0.6 MG/DL (0.2-1.0) Sodium Level 140 MEQ/L (136-145) Potassium Level 5.2 MEQ/L (3.5-5.1) Chloride Level 99 MEQ/L (98-107) Carbon Dioxide Level 33.8 MEQ/L (21.0-32.0) Anion Gap 7 MEQ/L (5-15) Estimat Glomerular Filtration Rate 7 ML/MIN (>89) Result Diagram: 10/07/1740510/07/17405 (1) Multi-vessel coronary artery stenosis (2) NSTEMI (non-ST elevation myocardial infarction) (3) S/P CABG x 2 Plan: on ASA, plavix , amiodarone, statin increase midodrine start coumadin OOB as tolerated transfer to [facility] for rehab at discharge (4) Ischemic cardiomyopathy Plan: EF 35% , start MERRILL when BP tolerates / recheck limited echo for EF pt will not tolerate MERRILL at this time with labile BP (5) ESRD (end stage renal disease) Plan: dialysis today (6) DM (diabetes mellitus) Plan: insulin sliding scale levemir (7) Hyperlipidemia Plan: statin (8) HTN (hypertension) (9) Blood loss anemia Plan: transfuse one unit PRBC with dialysis this am Lottie Monteiro Oct 07, 2017 10:40
--- NOTE | 2017-10-07 13:09 | HHI.NPPN ---
Subjective General Problems: Anemia, Edema, Heart Disease, Hypertension Renal Failure: End Stage Renal Disease History of Present Illness 57-year-old male with past medical history of ischemic heart disease, hypertension, cardiomyopathy, end-stage renal disease, on hemodialysis 3 times per week, diabetes mellitus, came to the hospital with a complaint of recurrent chest pain. I was called to see the patient because of management of dialysis. The patient has a known history of ischemic heart disease and congestive heart failure. Additional Remarks Patient is sitting up in chair. Pain well controlled. CT removed yesterday. (Racquel Hooks) Review of Systems General Constitutional: Fatigue (Racquel Hooks) Respiratory Respiratory Remarks No SOB (Racquel Hooks) Gastrointestinal GI Remarks Denies any abdominal pain (Racquel Hooks) Objective Data Data Vital Signs Date Time Temp Pulse Resp B/P (MAP) Pulse Ox O2 Delivery O2 Flow Rate FiO2 10/07/17 11:00 97.7 57 20 87/56 (66) 98 10/07/17 11:00 57 10/07/17 11:00 98 Nasal Cannula 2.00 10/07/17 07:17 98 Nasal Cannula 3.00 10/07/17 07:00 98 Nasal Cannula 2.00 10/07/17 07:00 97.7 61 18 97/63 (74) 98 10/07/17 03:00 61 10/07/17 03:00 97.8 65 16 103/48 (66) 97 10/07/17 03:00 97 Nasal Cannula 2.00 10/06/17 23:00 96 Nasal Cannula 2.00 10/06/17 23:00 98.7 66 16 104/63 (77) 97 10/06/17 23:00 66 10/06/17 20:07 98 Nasal Cannula 2.00 10/06/17 20:00 99 Nasal Cannula 2.00 10/06/17 20:00 99.4 68 16 107/60 (76) 98 10/06/17 19:00 70 10/06/17 15:00 98.6 61 12 109/58 (75) 98 10/06/17 15:00 98 Nasal Cannula 2.00 10/06/17 15:00 61 (Racquel Hooks) -: 10/07/17 0406 10/07/17 0406 Physical Exam General Appearance: No Acute Distress, Comfortable (Racquel Hooks) Eyes Eye Exam: Pupils Equal (Racquel Hooks) Throat Throat Exam: Oral Mucosa [place] & Moist (Racquel Hooks) Neck Neck Exam: Neck Supple (Racquel Hooks) Pulmonary Resp Exam: Breath Sounds Equal, No Distress, Decreased Bases (Racquel Hooks) Cardiology CV Exam: Regular, Normal Sinus Rhythm (Racquel Hooks) Gastrointestinal/Abdomen GI Exam: Soft, Non-Tender, Bowel Sounds Present (Racquel Hooks) Integumentary Skin Exam: Clear, Warm (Racquel Hooks) Extremeties Extremities Exam: Trace Edema (Racquel Hooks) Neurologic Neuro Exam: Alert, Awake, Oriented (Racquel Hooks) Psychiatric Psych Exam: Appropriate Responses (Racquel Hooks) Assessment/Plan Discussed Condition With: Daughter Assessment Summary: Anemia of CKD, CHF, Hypertension, End Stage Renal Disease Problem List: (1) ESRD on hemodialysis ICD Codes: N18.6 - End stage renal disease; Z99.2 - Dependence on renal dialysis Plan: ESRD HD on / Patient has significant IHD and has low EF. S/P heart cath found to have restenosis of his complex PCI cardiac surgery consulted S/P CABG X 2 on 10/03/17 Plan Continue phoslo Epogen with dialysis Continue Midodrine Potassium 5.2 renal diet ordered HD yesterday with UF of 1 liter Dialysis planned for tomorrow (2) DM (diabetes mellitus) ICD Codes: E11.9 - Type 2 diabetes mellitus without complications Status: Chronic (3) Ischemic cardiomyopathy ICD Codes: I25.5 - Ischemic cardiomyopathy Status: Chronic (4) NSTEMI (non-ST elevation myocardial infarction) ICD Codes: I21.4 - Non-ST elevation (NSTEMI) myocardial infarction Status: Acute (5) Hyperlipidemia ICD Codes: E78.5 - Hyperlipidemia, unspecified Status: Chronic (6) Anemia ICD Codes: D64.9 - Anemia, unspecified Status: Chronic (7) HTN (hypertension) ICD Codes: I10 - Essential (primary) hypertension Status: Chronic (8) Multi-vessel coronary artery stenosis ICD Codes: I25.10 - Atherosclerotic heart disease of [place] coronary artery without angina pectoris Status: Chronic Plan (Racquel Hooks) Problem List: (1) ESRD on hemodialysis ICD Codes: N18.6 - End stage renal disease; Z99.2 - Dependence on renal dialysis Plan: ESRD HD on //TUE Patient has significant IHD and has low EF. S/P heart cath found to have restenosis of his complex PCI cardiac surgery consulted S/P CABG X 2 on 10/03/17 Plan Continue phoslo Epogen with dialysis Continue Midodrine Potassium 5.2 renal diet ordered HD yesterday with UF of 1 liter Dialysis planned for tomorrow. Patient seen and examined, agree with above. Breathing is better, to continue PT. (2) DM (diabetes mellitus) ICD Codes: E11.9 - Type 2 diabetes mellitus without complications Status: Chronic (3) Ischemic cardiomyopathy ICD Codes: I25.5 - Ischemic cardiomyopathy Status: Chronic (4) NSTEMI (non-ST elevation myocardial infarction) ICD Codes: I21.4 - Non-ST elevation (NSTEMI) myocardial infarction Status: Acute (5) Hyperlipidemia ICD Codes: E78.5 - Hyperlipidemia, unspecified Status: Chronic (6) Anemia ICD Codes: D64.9 - Anemia, unspecified Status: Chronic (7) HTN (hypertension) ICD Codes: I10 - Essential (primary) hypertension Status: Chronic (8) Multi-vessel coronary artery stenosis ICD Codes: I25.10 - Atherosclerotic heart disease of [place] coronary artery without angina pectoris Status: Chronic (Jeana Corona MD) Racquel Hooks Oct 07, 2017 13:09 Jeana Corona MD Oct 10, 2017 18:25
--- NOTE | 2017-10-07 13:11 | PD.CARD.PN ---
Subjective Subjective Remarks Doing well overall Blood pressure mildly low Objective Medications Current Medications Medications (Trade) Dose Ordered Sig/Taj Route Start Time Stop Time Status Last Admin (Tylenol) 650 mg Q6H PRN PO 09/24/17 22:15 ([place] 5-325 Mg) 1 tab Q4H PRN PO 09/24/17 22:15 10/06/17 18:48 (Lactulose Liq) 30 ml DAILY PRN PO 09/24/17 22:15 (Phoslo) 1,334 mg TID PO 09/25/17 09:00 10/07/17 11:30 (Catapres) 0.1 mg BID PO 09/25/17 09:00 Future Hold (Neurontin) 100 mg TID PO 09/25/17 09:00 10/07/17 11:30 (Apresoline) 50 mg TID PO 09/25/17 09:00 Future Hold (Coreg) 25 mg Q12HR PO 09/25/17 21:00 Future Hold 10/02/17 09:11 Albumin Human 100 ml @ 60 mls/hr UNSCH PRN IV 09/26/17 15:00 10/06/17 15:20 (NS Flush) 2 ml BID IV FLUSH 10/03/17 21:00 10/07/17 09:21 (NS Flush) 2 ml UNSCH PRN IV FLUSH 10/03/17 11:30 (Aspirin Chew) 81 mg DAILY PO 10/04/17 09:00 10/07/17 09:20 (Protonix) 40 mg DAILY@06 PO 10/04/17 06:00 10/07/17 07:52 (Tylenol) 650 mg Q4H PRN PO 10/03/17 11:30 (Percocet 5-325 Mg) 2 tab Q3H PRN PO 10/03/17 11:30 10/07/17 02:34 (Zofran Inj) 4 mg Q6H PRN IV PUSH 10/03/17 11:30 (Apresoline Inj) 10 mg Q4H PRN IV PUSH 10/03/17 11:30 (Duoneb Neb) 1 ampule Q2HR NEB PRN NEB 10/03/17 11:30 (Senokot) 8.6 mg HS PO 10/05/17 21:00 10/06/17 21:07 (NovoLOG SUPPLEMENTAL SCALE) 1 ACHS SQ 10/05/17 08:00 10/07/17 12:15 (Lipitor) 40 mg HS PO 10/04/17 21:00 10/06/17 21:07 (Epogen Inj) 10,000 units UNSCH PRN IV PUSH 10/04/17 15:00 10/06/17 13:12 (Duoneb Neb) 1 ampule Q6HR WHILE AWAKE NEB NEB 10/05/17 14:00 10/07/17 13:59 10/07/17 12:46 (Colace) 100 mg BID PO 10/05/17 21:00 10/07/17 09:20 (Theragran M Tab) 1 tab DAILY PO 10/05/17 09:30 10/07/17 09:20 (Miralax) 17 gm DAILY PO 10/06/17 09:00 10/07/17 09:20 (Fleets Enema (Adult)) 118 ml UNSCH PRN RECTAL 10/05/17 09:30 (D50w (Vial) Inj) 50 ml UNSCH PRN IV PUSH 10/05/17 09:30 (Glucagon Inj) 1 mg UNSCH PRN OTHER 10/05/17 09:30 (Proamatine) 10 mg TID@07,12,17 PO 10/06/17 17:00 10/07/17 11:30 (Coumadin) 3 mg DAILY@16 PO 10/06/17 17:00 10/06/17 17:23 (Levemir Inj) 10 units HS SQ 10/07/17 21:00 Vital Signs / I&O Vital Signs Date Time Temp Pulse Resp B/P (MAP) Pulse Ox O2 Delivery O2 Flow Rate FiO2 10/07/17 11:00 97.7 57 20 87/56 (66) 98 10/07/17 11:00 57 10/07/17 11:00 98 Nasal Cannula 2.00 10/07/17 07:17 98 Nasal Cannula 3.00 10/07/17 07:00 98 Nasal Cannula 2.00 10/07/17 07:00 97.7 61 18 97/63 (74) 98 10/07/17 03:00 61 10/07/17 03:00 97.8 65 16 103/48 (66) 97 10/07/17 03:00 97 Nasal Cannula 2.00 10/06/17 23:00 96 Nasal Cannula 2.00 10/06/17 23:00 98.7 66 16 104/63 (77) 97 10/06/17 23:00 66 10/06/17 20:07 98 Nasal Cannula 2.00 10/06/17 20:00 99 Nasal Cannula 2.00 10/06/17 20:00 99.4 68 16 107/60 (76) 98 10/06/17 19:00 70 10/06/17 15:00 98.6 61 12 109/58 (75) 98 10/06/17 15:00 98 Nasal Cannula 2.00 10/06/17 15:00 61 I/O 10/06/17 10/06/17 10/06/17 10/07/17 10/07/17 10/07/17 07:00 15:00 23:00 07:00 15:00 23:00 Intake Total 240 ml 200 ml 580 ml 480 ml Output Total 160 ml 1130 ml 200 ml Balance 80 ml 200 ml -550 ml 280 ml Intake Oral 240 ml 480 ml 480 ml IV Total 200 ml 100 ml Output Urine Total 100 ml 200 ml Chest Tube Drainage Total 60 ml 130 ml Hemodialysis 1000 ml # Voids 1 0 # Bowel Movements 0 Physical Exam GENERAL: NAD, AAOx3 SKIN: Warm and dry. HEAD: Atraumatic. Normocephalic. EYES: Pupils equal and round. No scleral icterus. No injection or drainage. ENT: No nasal bleeding or discharge. Mucous membranes pink and moist. NECK: Trachea midline. No JVD. CARDIOVASCULAR: Regular rate and rhythm. RESPIRATORY: No accessory muscle use. Clear to auscultation. Breath sounds equal bilaterally. GASTROINTESTINAL: Abdomen soft, non-tender, nondistended. Hepatic and splenic margins not palpable. MUSCULOSKELETAL: Extremities without clubbing, cyanosis, or edema. No obvious deformities. Right femoral no hematoma NEUROLOGICAL: No focal deficits Laboratory Laboratory Tests Test 10/07/17 04:06 White Blood Count 5.9 TH/MM3 Red Blood Count 2.66 MIL/MM3 Hemoglobin 8.5 GM/DL Hematocrit 25.4 % Mean Corpuscular Volume 95.6 FL Mean Corpuscular Hemoglobin 32.0 PG Mean Corpuscular Hemoglobin Concent 33.5 % Red Cell Distribution Width 16.9 % Platelet Count 122 TH/MM3 Mean Platelet Volume 9.1 FL Neutrophils (%) (Auto) 74.1 % Lymphocytes (%) (Auto) 9.3 % Monocytes (%) (Auto) 11.7 % Eosinophils (%) (Auto) 3.8 % Basophils (%) (Auto) 1.1 % Neutrophils # (Auto) 4.4 TH/MM3 Lymphocytes # (Auto) 0.5 TH/MM3 Monocytes # (Auto) 0.7 TH/MM3 Eosinophils # (Auto) 0.2 TH/MM3 Basophils # (Auto) 0.1 TH/MM3 CBC Comment DIFF FINAL Differential Comment Prothrombin Time 13.1 SEC Prothromb Time International Ratio 1.3 RATIO Blood Urea Nitrogen 47 MG/DL Creatinine 8.42 MG/DL Random Glucose 157 MG/DL Total Protein 6.3 GM/DL Albumin 3.0 GM/DL Calcium Level 8.3 MG/DL Phosphorus Level 5.6 MG/DL Magnesium Level 2.6 MG/DL Alkaline Phosphatase 89 U/L Aspartate Amino Transf (AST/SGOT) 43 U/L Alanine Aminotransferase (ALT/SGPT) 9 U/L Total Bilirubin 0.6 MG/DL Sodium Level 140 MEQ/L Potassium Level 5.2 MEQ/L Chloride Level 99 MEQ/L Carbon Dioxide Level 33.8 MEQ/L Anion Gap 7 MEQ/L Estimat Glomerular Filtration Rate 7 ML/MIN Imaging Last 24 hours Impressions Chest X-Ray 10/07/17 0600 Signed Impressions: Service Date/Time: Saturday, October 07, 2017 05:43 - CONCLUSION: Thoracostomy tube removal without pneumothorax Noam Sparks MD Assessment and Plan Problem List: (1) Multi-vessel coronary artery stenosis ICD Codes: I25.10 - Atherosclerotic heart disease of [place] coronary artery without angina pectoris (2) NSTEMI (non-ST elevation myocardial infarction) ICD Codes: I21.4 - Non-ST elevation (NSTEMI) myocardial infarction Status: Acute (3) S/P CABG x 2 ICD Codes: Z95.1 - Presence of aortocoronary bypass graft (4) Ischemic cardiomyopathy ICD Codes: I25.5 - Ischemic cardiomyopathy Status: Chronic (5) ESRD (end stage renal disease) ICD Codes: N18.6 - End stage renal disease Status: Acute (6) DM (diabetes mellitus) ICD Codes: E11.9 - Type 2 diabetes mellitus without complications (7) Hyperlipidemia ICD Codes: E78.5 - Hyperlipidemia, unspecified Status: Chronic (8) HTN (hypertension) ICD Codes: I10 - Essential (primary) hypertension Status: Chronic (9) 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
[2017-10-07] MEDS: LACTULOSE SYRUP 20 GM/30 ML CUP PO PRN (15:37)
[2017-10-07] MEDS: WARFARIN SOD 3 MG TAB PO SCH (16:18)
--- NOTE | 2017-10-07 17:36 | PD.WCN.NOT ---
Wound Consult Description: Received wound management consult from Doctor Muriel Tim for pressure ulcer to sacral area Communicated with: LEESA Rolon and Doctor Hernandez Recommendation: Please cleanse buttock area with Remedy barrier cloths, Cleanse open wound within deep tissue injury to R buttock with normal saline and pat dry. Apply thick layer of calazime barrier cream covering entire DTI including open wound BID and leave open to air. Please DO NOT apply foam dressing Please limit time up in chair Please use ultra sorb pads on chair and on bed. DO NOT use cotton underpad or pull pads under patient. Keep patient turned from side to side every 2 hours and PRN for comfort and to offload pressure from sacral inner buttock area. Do not allow patient to lay on back. Additional Information: Patient seen on 4th floor CVICU for sacral pressure ulcer evaluation. Patient is observed sitting in chair. Patient is able to stand with minimal assistance for assessment. Patient has gel or air cushion on chair in room with cotton pad on top. Removed sacral adhesive foam dressing in place to reveal. Deep tissue injury to sacral and bilateral inner buttocks that is opening to full thickness skin loss. Wound measures 10 cm x 4 cm with full thickness skin loss on R inner buttock measuring 0.9cm x 1 cm x ~0.2cm . Full thickness skin loss presents with ~50% pink tissue and ~50% adipose tissue. DTI is noted with some maceration to skin. Cleansed wound with normal saline and patted dry. Applied Thick layer of calazime barrier cream and left open to air. Instructed patient to limit time up in chair and keep off buttocks while in bed by turning from side to side. Patient does have a CIC yumiko bed in room that and be fitted with alternating pressure pump to help with offloading of pressure.Recommendations noted above. Yenny Ovalles [facility] Oct 07, 2017 17:36
[2017-10-07] MEDS: ATORVASTATIN 40 MG TAB PO SCH (20:29)
[2017-10-07] MEDS: SENNOSIDES 8.6 MG TAB PO SCH (20:29)
[2017-10-07] MEDS: INSULIN DETEMIR 100 UNITS/ML VIAL SQ SCH (20:29)
[2017-10-08] VITALS (7 sets, daily range): BP systolic 90–120; BP diastolic 55–65; PULSE 56–69; RESP 12–20; TEMP 97.8–98.4; O2SAT 7–99
[2017-10-08 04:38] LABS: INTERNATIONAL NORMALIZED RATIO 1.3 RATIO; PROTHROMBIN TIME - PATIENT 13.1 SEC (9.8-11.6)
[2017-10-08 04:40] LABS: HEMATOCRIT 25.3 % (39.0-51.0); HEMOGLOBIN 8.3 GM/DL (13.0-17.0); MEAN CELL VOLUME 95.8 FL (80.0-100.0); MEAN CORPUSCULAR HEMOGLOBIN 31.4 PG (27.0-34.0); MEAN CORPUSCULAR HGB CONC 32.8 % (32.0-36.0); PLATELET COUNT 150 TH/MM3 (150-450); RED BLOOD COUNT 2.64 MIL/MM3 (4.50-5.90); RED CELL DISTRIBUTION WIDTH 16.2 % (11.6-17.2); WHITE BLOOD COUNT 5.3 TH/MM3 (4.0-11.0)
[2017-10-08 04:46] LABS: BICARBONATE 32.5 MEQ/L (21.0-32.0); CALCIUM 8.4 MG/DL (8.5-10.1); MAGNESIUM 2.8 MG/DL (1.5-2.5)
[2017-10-08 04:52] LABS: CREATININE 10.07 MG/DL (0.60-1.30)
[2017-10-08] MEDS: MIDODRINE 5 MG TAB PO SCH ×3 (06:20→18:25)
[2017-10-08] MEDS: PANTOPRAZOLE SOD 40 MG DELAYED RELEASE TAB PO SCH (06:20)
[2017-10-08] MEDS: GABAPENTIN 100 MG CAP PO SCH ×3 (08:32→18:25)
[2017-10-08] MEDS: INSULIN ASPART SUPPLEMENTAL SCALE SQ SCH ×4 (08:32→21:00)
[2017-10-08] MEDS: POLYETHYLENE GLYCOL 17 GM PKG PO SCH (08:33)
[2017-10-08] MEDS: DOCUSATE SODIUM 100 MG CAP PO SCH ×2 (08:33→21:00)
[2017-10-08] MEDS: SODIUM CHLORIDE 0.9% FLUSH 10 ML FLUSH IV FLUSH SCH ×2 (08:33→21:11)
[2017-10-08] MEDS: CLOPIDOGREL 75 MG TAB PO SCH (08:33)
[2017-10-08] MEDS: MULTIVITAMINS/MINERALS THERAPEUTIC TAB PO SCH (08:33)
[2017-10-08] MEDS: CALCIUM ACETATE 667 MG CAP PO SCH ×3 (08:33→18:25)
--- NOTE | 2017-10-08 09:51 | HHI.NPPN ---
Subjective General Problems: Anemia, Edema, Heart Disease, Hypertension Renal Failure: End Stage Renal Disease History of Present Illness 57-year-old male with past medical history of ischemic heart disease, hypertension, cardiomyopathy, end-stage renal disease, on hemodialysis 3 times per week, diabetes mellitus, came to the hospital with a complaint of recurrent chest pain. I was called to see the patient because of management of dialysis. The patient has a known history of ischemic heart disease and congestive heart failure. Additional Remarks To have HD today. Review of Systems General Constitutional: Fatigue Respiratory Respiratory Remarks No SOB Gastrointestinal GI Remarks Denies any abdominal pain Objective Data Data Vital Signs Date Time Temp Pulse Resp B/P (MAP) Pulse Ox O2 Delivery O2 Flow Rate FiO2 10/08/17 09:18 96 Nasal Cannula 1.00 10/08/17 03:23 98.2 60 15 90/59 (69) 98 10/08/17 03:23 60 10/08/17 03:23 98 Nasal Cannula 2.00 10/07/17 23:18 61 10/07/17 23:18 98 Nasal Cannula 2.00 10/07/17 23:18 97.9 62 15 92/49 (63) 98 10/07/17 20:33 97 Nasal Cannula 2.00 10/07/17 19:30 97.6 60 16 92/62 (72) 95 10/07/17 19:30 95 Nasal Cannula 2.00 10/07/17 19:00 56 10/07/17 15:00 99 Nasal Cannula 2.00 10/07/17 15:00 97.4 57 20 94/56 (69) 98 10/07/17 15:00 60 10/07/17 11:00 97.7 57 20 87/56 (66) 98 10/07/17 11:00 57 10/07/17 11:00 98 Nasal Cannula 3.00 -: 10/08/17 0254 10/08/17 0254 Physical Exam General Appearance: No Acute Distress, Comfortable Eyes Eye Exam: Pupils Equal Throat Throat Exam: Oral Mucosa [place] & Moist Neck Neck Exam: Neck Supple Pulmonary Resp Exam: Breath Sounds Equal, No Distress, Decreased Bases Cardiology CV Exam: Regular, Normal Sinus Rhythm Gastrointestinal/Abdomen GI Exam: Soft, Non-Tender, Bowel Sounds Present Integumentary Skin Exam: Clear, Warm Extremeties Extremities Exam: Trace Edema Neurologic Neuro Exam: Alert, Awake, Oriented Psychiatric Psych Exam: Appropriate Responses Assessment/Plan Discussed Condition With: Daughter Assessment Summary: Anemia of CKD, CHF, Hypertension, End Stage Renal Disease Problem List: (1) ESRD on hemodialysis ICD Codes: N18.6 - End stage renal disease; Z99.2 - Dependence on renal dialysis Plan: ESRD HD on T//SAT S/P CABG X 2 on 10/03/17 Dialysis today. (2) DM (diabetes mellitus) ICD Codes: E11.9 - Type 2 diabetes mellitus without complications (3) Ischemic cardiomyopathy ICD Codes: I25.5 - Ischemic cardiomyopathy Status: Chronic (4) NSTEMI (non-ST elevation myocardial infarction) ICD Codes: I21.4 - Non-ST elevation (NSTEMI) myocardial infarction Status: Acute (5) Hyperlipidemia ICD Codes: E78.5 - Hyperlipidemia, unspecified Status: Chronic (6) Anemia ICD Codes: D64.9 - Anemia, unspecified Status: Chronic (7) HTN (hypertension) ICD Codes: I10 - Essential (primary) hypertension Status: Chronic (8) Multi-vessel coronary artery stenosis ICD Codes: I25.10 - Atherosclerotic heart disease of [place] coronary artery without angina pectoris Plan Ronak Philip MD Oct 08, 2017 09:51
--- NOTE | 2017-10-08 10:21 | PD.CAR.PN ---
CVT Progress Note Subjective/Hospital Course: 57-year-old patient of Dr. Hernandez who has history of end-stage renal disease , who was last seen by ourselves, Dr. Tim, on 04/13/2017. He is a patient of Dr. Hernandez who at that time was ruled in for a non-STEMI, underwent cardiac catheterization by Dr. Aguilar. At that time, he had a 60% left main, proximal LAD 70-80%, diagonal was 90, the OM was 100, RCA 100. We were consulted at that time and the films were evaluated. He had a very poor ejection fraction with EF of 25% and had very poor targets. He was turned down for cardiovascular surgery. He, however, went under complex Impella support of the left main, LAD and circumflex. He developed restenosis and had a repeat revascularization procedure in 07/2017 involving laser atherectomy, cutting balloon and balloon angioplasty. He has been this time complaining of shortness of breath, substernal discomfort. On admission in the ER, his troponin was 0.74. He has been on Brilinta and Coumadin. He underwent cardiac catheterization by Dr. May, which showed 70% left main, proximal LAD 90%, mid distal LAD 30, diagonal 20%, the circuit was 95%, the OM 30 and the RCA 95%. EF approximately 45% on the cath. He also had an echocardiogram, which showed an EF of 50-55%, some mild LVH, mild mitral regurgitation, trace AI. We were consulted to reevaluate for coronary artery bypass grafting. PAST MEDICAL HISTORY: Includes coronary artery disease with multiple interventions, end-stage renal disease, on dialysis Tuesday, , Tuesday by Dr. Corona, diabetes mellitus, hypertension, hyperlipidemia. HX of Afib was on coumadin at home surgery: 10/03 Urgent Off-pump Coronary Artery Bypass Grafting x 2 with Left Internal Mammary Artery (SANDERSON) to Left Anterior Descending (LAD), reverse saphenous vein graft to the Obtuse Marginal 2 (OM2) branch of the Left Circumflex artery, Left Leg Endoscopic Vein [place], Drainage of Pleural Effusions. EF 35% extubated after surgery crystalloid 2200cc, cell saver, 1200cc EBL 630cc 10/04 , pt had coagulopathy after surgery drained total 1400cc/ 24hrs 550cc/ last 12 hrs , received 1 unit PRBC, 1 unit cryo, 2 units FFP, 1 unit PLT HGB 8.2 remains on dobutamine and kb gtt will transfuse one unit with dialysis this am no BB, no merrill with labile BP on ASA, plavix, amiodarone will need to resume coumadin when chest tubes out, then dc plavix when INR > 2.0 10/05 for dialysis in am , weaned off Kb gtt/ started on midodrine wean 02 , will need rehab at discharge OOB/ PT leave chest tubes in / drained 160cc/ 12hrs leave in ICU today 10/06 chest tubes removed without difficulty re-start coumadin this pm / dc plavix, continue ASA received dialysis today , given albumin during course midodrine increased, will transfer to stepdown 10/07 coumadin resumed pt weak , PT/OT will need rehab at discharge HR lower side, will not tolerate BB, amiodarone dc on Midodrine 10/08 Clinically stable HD today Awaiting transfer to [facility] Discharge planning Objective: Vital Signs Date Time Temp Pulse Resp B/P (MAP) Pulse Ox O2 Delivery O2 Flow Rate FiO2 10/08/17 09:18 96 Nasal Cannula 1.00 10/08/17 03:23 98.2 60 15 90/59 (69) 98 10/08/17 03:23 60 10/08/17 03:23 98 Nasal Cannula 2.00 10/07/17 23:18 61 10/07/17 23:18 98 Nasal Cannula 2.00 10/07/17 23:18 97.9 62 15 92/49 (63) 98 10/07/17 20:33 97 Nasal Cannula 2.00 10/07/17 19:30 97.6 60 16 92/62 (72) 95 10/07/17 19:30 95 Nasal Cannula 2.00 10/07/17 19:00 56 10/07/17 15:00 99 Nasal Cannula 2.00 10/07/17 15:00 97.4 57 20 94/56 (69) 98 10/07/17 15:00 60 10/07/17 11:00 97.7 57 20 87/56 (66) 98 10/07/17 11:00 57 10/07/17 11:00 98 Nasal Cannula 3.00 Labs: Laboratory Tests Test 10/08/17 02:54 White Blood Count 5.3 TH/MM3 (4.0-11.0) Red Blood Count 2.64 MIL/MM3 (4.50-5.90) Hemoglobin 8.3 GM/DL (13.0-17.0) Hematocrit 25.3 % (39.0-51.0) Mean Corpuscular Volume 95.8 FL (80.0-100.0) Mean Corpuscular Hemoglobin 31.4 PG (27.0-34.0) Mean Corpuscular Hemoglobin Concent 32.8 % (32.0-36.0) Red Cell Distribution Width 16.2 % (11.6-17.2) Platelet Count 150 TH/MM3 (150-450) Mean Platelet Volume 9.0 FL (7.0-11.0) Prothrombin Time 13.1 SEC (9.8-11.6) Prothromb Time International Ratio 1.3 RATIO Blood Urea Nitrogen 60 MG/DL (7-18) Creatinine 10.07 MG/DL (0.60-1.30) Random Glucose 170 MG/DL (74-106) Calcium Level 8.4 MG/DL (8.5-10.1) Magnesium Level 2.8 MG/DL (1.5-2.5) Sodium Level 141 MEQ/L (136-145) Potassium Level 5.3 MEQ/L (3.5-5.1) Chloride Level 100 MEQ/L (98-107) Carbon Dioxide Level 32.5 MEQ/L (21.0-32.0) Anion Gap 9 MEQ/L (5-15) Estimat Glomerular Filtration Rate 5 ML/MIN (>89) Result Diagram: 10/08/17 0254 10/08/17253 (1) Multi-vessel coronary artery stenosis (2) NSTEMI (non-ST elevation myocardial infarction) (3) S/P CABG x 2 Plan: on ASA, plavix , amiodarone, statin increase midodrine start coumadin OOB as tolerated transfer [facility] to [facility] for rehab at discharge (4) Ischemic cardiomyopathy Plan: EF 35% , start MERRILL when BP tolerates / recheck limited echo for EF pt will not tolerate MERRILL at this time with labile BP (5) ESRD (end stage renal disease) Plan: dialysis today (6) DM (diabetes mellitus) Plan: insulin sliding scale levemir (7) Hyperlipidemia Plan: statin (8) HTN (hypertension) (9) Blood loss anemia Plan: transfuse one unit PRBC with dialysis this am Muriel Tim MD Oct 08, 2017 10:21
--- NOTE | 2017-10-08 13:22 | ECHRPT ---
Indication: EF assessment in CHF CONCLUSIONS The left ventricular systolic function is hyperdynamic with an estimated ejection fraction in the ra nge of 25- 35%. Difficult study, no overt effusions BP: / HR: Rhythm: MEASUREMENTS (Male / Female) Normal Values Technical Quality: 2D ECHO LV Diastolic Diameter PLAX 5.6 cm 4.2 - 5.9 / 3.9 - 5.3 cm LV Systolic Diameter PLAX 4.9 cm IVS Diastolic Thickness 1.2 cm 0.6 - 1.0 / 0.6 - 0.9 cm LVPW Diastolic Thickness 1.0 cm 0.6 - 1.0 / 0.6 - 0.9 cm LV Relative Wall Thickness 0.4 RV Internal Dim ED PLAX 2.6 cm DOPPLER AV Peak Velocity 198.0 cm/s AV Peak Gradient 15.7 mmHg Mitral E Point Velocity 114.0 cm/s Mitral A Point Velocity 52.6 cm/s Mitral E to A Ratio 2.2 TR Peak Velocity 231.0 cm/s TR Peak Gradient 21.3 mmHg Right Atrial Pressure 5.0 mmHg Pulmonary Artery Systolic Pressu 26.3 mmHg Right Ventricular Systolic Press 26.3 mmHg FINDINGS LEFT VENTRICLE The left ventricular systolic function is severely reduced with an estimated ejection fraction in th e range of 25-35%. Moderately dilated left ventricle. Mild concentric left ventricular hypertrophy. . RIGHT VENTRICLE Normal right ventricular size and systolic function. LEFT ATRIUM The left atrial size is normal. RIGHT ATRIUM The right atrial size is normal. ATRIAL SEPTUM Normal atrial septal thickness without atrial level shunting by limited color doppler interrogation. AORTA The aortic root and proximal ascending aorta are normal in size on limited imaging. MITRAL VALVE Mitral annular calcification is present. Trace mitral valve regurgitation. AORTIC VALVE Aortic valve sclerosis is present. TRICUSPID VALVE There is mild tricuspid valve regurgitation. The estimated pulmonary arterial pressure is 26 mmHg. PULMONARY VALVE No pulmonary valve regurgitation or stenosis. VESSELS The inferior vena cava is normal in size. PERICARDIUM No pericardial effusion. Destiney Mcclure MD, FACC (Electronically Signed) Final Date:08 October 2017 13:21
--- NOTE | 2017-10-08 13:24 | HHI.PR ---
Subjective Remarks The patient was about to work with physical therapy. He said he was feeling okay. He denies any acute complaints. Discussed with nursing. Objective Vitals Vital Signs Date Time Temp Pulse Resp B/P (MAP) Pulse Ox O2 Delivery O2 Flow Rate FiO2 10/08/17 09:18 96 Nasal Cannula 1.00 10/08/17 03:23 98.2 60 15 90/59 (69) 98 10/08/17 03:23 60 10/08/17 03:23 98 Nasal Cannula 2.00 10/07/17 23:18 61 10/07/17 23:18 98 Nasal Cannula 2.00 10/07/17 23:18 97.9 62 15 92/49 (63) 98 10/07/17 20:33 97 Nasal Cannula 2.00 10/07/17 19:30 97.6 60 16 92/62 (72) 95 10/07/17 19:30 95 Nasal Cannula 2.00 10/07/17 19:00 56 10/07/17 15:00 99 Nasal Cannula 2.00 10/07/17 15:00 97.4 57 20 94/56 (69) 98 10/07/17 15:00 60 I/O 10/07/17 10/07/17 10/07/17 10/08/17 10/08/17 10/08/17 07:00 15:00 23:00 07:00 15:00 23:00 Intake Total 480 ml 773 ml 480 ml Output Total 200 ml 0 ml Balance 280 ml 773 ml 480 ml Intake Oral 480 ml 773 ml 480 ml Output Urine Total 200 ml 0 ml # Voids 0 2 # Bowel Movements 1 1 Result Diagram: 10/08/17 0254 10/08/17 0254 Imaging Last Impressions Chest X-Ray 10/07/17 0600 Signed Impressions: Service Date/Time: Saturday, October 07, 2017 05:43 - CONCLUSION: Thoracostomy tube removal without pneumothorax Noam Sparks MD Lower Extremity Ultrasound 09/30/17 0000 Signed Impressions: Service Date/Time: Saturday, September 30, 2017 15:06 - CONCLUSION: 1. Possible old , mural nonocclusive thrombus in the proximal right greater saphenous vein. 2. Otherwise, greater saphenous veins are patent bilaterally with measurements as above. Lloyd Rodríguez MD Objective Remarks GENERAL: NAD. SKIN: Warm and dry. HEAD: Atraumatic. Normocephalic. EYES: Pupils equal and round. No scleral icterus. No injection or drainage. Extraocular muscles intact ENT: No nasal bleeding or discharge. Mucous membranes pink and moist. Tongue is midline NECK: Trachea midline. No JVD. Supple. CARDIOVASCULAR: Regular rate and rhythm. S1-S2 no S3 or S4. RESPIRATORY: No accessory muscle use. Clear to auscultation. Breath sounds equal bilaterally. GASTROINTESTINAL: Abdomen soft, non-tender, nondistended. Hepatic and splenic margins not palpable. MUSCULOSKELETAL: Extremities without clubbing, cyanosis, or edema. No obvious deformities. Right upper extremity AV fistula with good thrill and bruit in the forearm. NEUROLOGICAL: Awake and alert. No obvious cranial nerve deficits. Motor grossly within normal limits. Five out of 5 muscle strength in the arms and legs. Normal speech. PSYCHIATRIC: Appropriate mood and affect; insight and judgment normal. Procedures Hemodialysis 4-5 cardiac catheterization Post-cath, found to have restenosis of LM/LAD/LCx stent --cardio vascular surgery has been consulted DATE OF PROCEDURE: 09/29/2017. PROCEDURE: Left heart catheterization, coronary angiogram, moderate sedation 25 minutes, Vascade femoral closure. PREPROCEDURE DIAGNOSES: [id number] myocardial infarction, coronary artery disease. POSTPROCEDURE DIAGNOSIS: Coronary artery disease, restenosis of left main/left anterior descending/left circumflex stents. MEDICATIONS: Versed 0.5 mg, fentanyl 25 mcg. CONTRAST USED: 35 mL FLUOROSCOPY: 1.2 minutes. MODERATE SEDATION: 25 minutes. ESTIMATED BLOOD LOSS: 10 mL. PROCEDURAL SUMMARY: Dandy Singleton is a pleasant 57-year-old male whom I see in the office and presented to [facility] due to chest pain. He was found to have an elevated troponin and recommended cardiac catheterization. Risks, benefits and alternatives were explained to him and he consented to such. He was brought to the lab and prepped in the usual sterile fashion. Left femoral artery was accessed using modified Seldinger technique and placement of a 5-Macedonian sheath. This was easily aspirated and flushed. A JR4 was advanced over a J-wire to the ascending aorta and across the aortic valve for measurement of left ventricular pressure. This was pulled back across the aortic valve, showing no significant gradient of aortic stenosis. The JR4 was used for selective angiography of the right coronary artery system. This was then exchanged for a JL4, which was used for selective angiography of the left coronary artery system. The JL4 was removed over a J-wire. Vascade femoral closure device was used for the arteriotomy. 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 FINDINGS: Left main stent patent with 70% in-stent restenosis. It bifurcates into an LAD and circumflex. LAD stent and the stent from the left main into the LAD has a 90% in-stent restenosis. Mid to distal stent is patent. Distally, the vessel has diffuse 30% disease. Left circumflex stent from left main into left circumflex has a 95% restenosis. Stent in the mid portion is patent with no significant disease. It gives off 2 obtuse marginals with no significant disease. RCA is a normal size vessel with 30% disease throughout the proximal portion. Distally, the vessel is diffusely diseased of 80% to 90% throughout with subtotal occlusions. LVEDP 30. IMPRESSION: 1. Non-ST elevation myocardial infarction. 2. Coronary artery disease with complex percutaneous coronary intervention of left main, left anterior descending and left circumflex previously. RECOMMENDATIONS: 1. Mr. Singleton presented again with an elevated troponin and once again was found to have restenosis of his complex PCI. 2. As the last time I attempted to use laser arthrectomy and cutting balloons and still had restenosis, as well as now the vessels have increased in size distally due to better flow, I think that he should undergo consideration of coronary artery bypass grafting. 3. I have discussed this with CT surgery and they will see him in consultation. 4. Due to the significance of his disease, he will be placed on a heparin drip 5 hours after sheath was removed. 5. We will plan on rechecking an echo to look at his overall left ventricular function in anticipation of coronary artery bypass grafting. 6. His Brilinta will be held for anticipated coronary artery bypass grafting. 7. 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 8. We will plan on having him undergo hemodialysis after cardiac catheterization. Thank you for allowing me to see Dandy Singleton. If there are any questions, please do not hesitate to call. Date of Surgery: Oct 03, 2017 Preoperative Diagnosis: Postoperative Diagnosis: Procedure: 1. Urgent Off-pump Coronary Artery Bypass Grafting x 2 with Left Internal Mammary Artery (SANDERSON) to Left Anterior Descending (LAD), reverse saphenous vein graft to the Obtuse Marginal 2 (OM2) branch of the Left Circumflex artery 2. Left Leg Endoscopic Vein [place] 3. Intraoperative Vein Mapping 4. Drainage of Pleural Effusions. Surgeon: Muriel Tim Electronic Engineering Technician(s): Giorgio Chandra Operation and Findings: PREPROCEDURE DIAGNOSES 1. Severe Multi Vessel Coronary Artery Disease. 2. Acute Myocardial Infarction (NSTEMI) 3. Severe Left Ventricular Dysfunction (EF 35%) POSTPROCEDURE DIAGNOSES Same SURGICAL PROCEDURE 1. Urgent Off-pump Coronary Artery Bypass Grafting x 2 with Left Internal Mammary Artery (SANDERSON) to Left Anterior Descending (LAD), reverse saphenous vein graft to the Obtuse Marginal 2 (OM2) branch of the Left Circumflex artery 2. Left Leg Endoscopic Vein [place] 3. Intraoperative Vein Mapping 4. Drainage of Pleural Effusions. SURGEON Muriel Tim MD RUSSIAN LANGUAGE PROFESSOR JULIANNE Jensen PA-C ANESTHESIA General endotracheal VINYL DIPPER Agustin Villegas, GUEST ATTENDANT Jamal Felix MD PREPARATION ChloraPrep. COUNTS Needle, sponge, and instrument counts were correct. DRAINS Two 32-Macedonian mediastinal tubes. COMPLICATIONS None. INDICATIONS FOR PROCEDURE The patient is a 57-year-old presenting with chest pain and AMI. Patient was noted to have multi-vessel coronary artery disease. The patient is being brought to the operating room for surgical revascularization therapy. PROCEDURE Patient was brought to the operating room and placed supine on the OR table. Following the induction of adequate general endotracheal anesthesia and placement of appropriate monitoring devices, intraoperative vein mapping was performed which revealed marginal but usable-caliber conduit in bilateral thighs. The patient was then prepped and draped in standard sterile fashion. Next, 2500 units of intravenous heparin was given. The left greater saphenous vein was harvested endoscopically. This appeared to be a small but useable- caliber conduit. Simultaneously, a median sternotomy was performed and the left internal mammary artery dissected free off the posterior sternal table. The patient was systemically heparinized and anticoagulation monitored by serial ACT measurements. The internal mammary artery had good pulsatile flow in it and was a good-caliber conduit. The pericardium was then divided in the midline , the cradle created and targets analyzed. The heart was grossly and globally dilated with severe left ventricular dysfunction by intraoperative ITZEL and visualization. At this point, all anastomoses were performed in a beating-heart fashion using the [employer] stabilizing system. The left internal mammary artery was anastomosed to the mid LAD (2.25 mm) in an end-to-side fashion using 7-0 Prolene. The LAD was diffusely and heavily calcified through its entire course all the way to the apex. A relatively soft spot was identified in its mid aspect for grafting. Segment of saphenous vein graft was then anastomosed to a diffusely and heavily calcified OM2 (1.75 mm) in an end-to-side fashion using 7- 0 Prolene. The proximal anastomosis was then constructed to the ascending aorta in a running manner using 6-0 Prolene. All anastomotic sites were inspected and appeared to be hemostatic and patent. Protamine solution was given. Strict hemostasis was assured. Both pleural spaces were opened and 500 mls of serous fluid evacuated from the right space and an additional 500 from the left. The closure was undertaken. 2 chest tubes were placed. The pericardium was partially reapproximated in the midline. The sternum was approximated using sternal wires. The muscular and fascial layer were then closed in 3 layers. The endoscopic vein harvest site was closed in 2 layers. The patient tolerated the procedure well and was transferred to CVICU in stable condition. Muriel Tim MD Oct 03, 2017 11:34 <Electronically signed by Muriel Tim MD> Medications and IVs Current Medications Medications (Trade) Dose Ordered Sig/Taj Route Start Time Stop Time Status Last Admin (Tylenol) 650 mg Q6H PRN PO 09/24/17 22:15 ([place] 5-325 Mg) 1 tab Q4H PRN PO 09/24/17 22:15 10/06/17 18:48 (Lactulose Liq) 30 ml DAILY PRN PO 09/24/17 22:15 10/07/17 15:37 (Phoslo) 1,334 mg TID PO 09/25/17 09:00 10/08/17 12:15 (Catapres) 0.1 mg BID PO 09/25/17 09:00 Future Hold (Neurontin) 100 mg TID PO 09/25/17 09:00 10/08/17 12:15 (Apresoline) 50 mg TID PO 09/25/17 09:00 Future Hold (Coreg) 25 mg Q12HR PO 09/25/17 21:00 Future Hold 10/02/17 09:11 Albumin Human 100 ml @ 60 mls/hr UNSCH PRN IV 09/26/17 15:00 10/06/17 15:20 (NS Flush) 2 ml BID IV FLUSH 10/03/17 21:00 10/08/17 08:33 (NS Flush) 2 ml UNSCH PRN IV FLUSH 10/03/17 11:30 (Protonix) 40 mg DAILY@06 PO 10/04/17 06:00 10/08/17 06:20 (Tylenol) 650 mg Q4H PRN PO 10/03/17 11:30 (Percocet 5-325 Mg) 2 tab Q3H PRN PO 10/03/17 11:30 10/07/17 23:00 (Zofran Inj) 4 mg Q6H PRN IV PUSH 10/03/17 11:30 (Apresoline Inj) 10 mg Q4H PRN IV PUSH 10/03/17 11:30 (Duoneb Neb) 1 ampule Q2HR NEB PRN NEB 10/03/17 11:30 (Senokot) 8.6 mg HS PO 10/05/17 21:00 10/07/17 20:29 (Lipitor) 40 mg HS PO 10/04/17 21:00 10/07/17 20:29 (Epogen Inj) 10,000 units UNSCH PRN IV PUSH 10/04/17 15:00 10/06/17 13:12 (Colace) 100 mg BID PO 10/05/17 21:00 10/07/17 20:29 (Theragran M Tab) 1 tab DAILY PO 10/05/17 09:30 10/08/17 08:33 (Miralax) 17 gm DAILY PO 10/06/17 09:00 10/07/17 09:20 (Fleets Enema (Adult)) 118 ml UNSCH PRN RECTAL 10/05/17 09:30 10/07/17 15:38 (D50w (Vial) Inj) 50 ml UNSCH PRN IV PUSH 10/05/17 09:30 (Glucagon Inj) 1 mg UNSCH PRN OTHER 10/05/17 09:30 (Proamatine) 10 mg TID@07,12,17 PO 10/06/17 17:00 10/08/17 12:15 (Coumadin) 3 mg DAILY@16 PO 10/06/17 17:00 10/07/17 16:18 (Levemir Inj) 10 units HS SQ 10/07/17 21:00 10/07/17 20:29 (Plavix) 75 mg DAILY PO 10/08/17 09:00 10/08/17 08:33 (NovoLOG SUPPLEMENTAL SCALE) 1 ACHS SLIDING SCALE SQ 10/08/17 12:00 10/08/17 12:15 A/P Problem List: (1) NSTEMI (non-ST elevation myocardial infarction) ICD Code: I21.4 - Non-ST elevation (NSTEMI) myocardial infarction Status: Acute (2) Ischemic cardiomyopathy ICD Code: I25.5 - Ischemic cardiomyopathy Status: Chronic (3) ESRD (end stage renal disease) ICD Code: N18.6 - End stage renal disease Status: Acute (4) DM (diabetes mellitus) ICD Code: E11.9 - Type 2 diabetes mellitus without complications Assessment and Plan NSTEMI The pt had a recent NSTEMI, s/p PCI. Troponin was elevated. Cardiology was consulted. Concerned about restonosis. Had cardiac catheterization September 29, found to have restenosis of LM/LAD/LCx stent. Cardiothoracic surgery was consulted. S/p CABG X2 ON 10/04/17. Chest tube has been removed. - management per CTS. - rehab efforts. - IS. - pain control with a bowel regimen. Ischemic cardiomyopathy Echo 08/03/17 w/ EF 40-45%, CXR w/ no acute findings. HR and blood pressure have been low. - cardiac regimen per cardiology. Holding Coreg, amiodarone, hydralazine and clonidine. Plavix has been added. - telemetry. - Is and Os. DM Glucose well controlled at this time. Has been low at times. - Sliding scale w/ Accu-Cheks. ESRD On HD T//Tue. - Nephrology, Dr. Corona following. Anemia Chronic, exacerbated by surgery. - follow CBC. DVT Prophylaxis: Per surgery. Coumadin has been resumed Discharge Planning D/c when cleared by CTS. Will likely need rehab. Dandy Hernandez DO Oct 08, 2017 13:24
[2017-10-08] MEDS: ALBUMIN 25% INJ 100 ML IV PRN ×2 (14:42→14:58)
[2017-10-08] MEDS: EPOETIN ALFA 10,000 UNITS/ML VIAL IV PUSH PRN (17:00)
[2017-10-08] MEDS: WARFARIN SOD 3 MG TAB PO SCH (18:26)
[2017-10-08] MEDS: SENNOSIDES 8.6 MG TAB PO SCH (21:00)
[2017-10-08] MEDS: INSULIN DETEMIR 100 UNITS/ML VIAL SQ SCH (21:00)
[2017-10-08] MEDS: ATORVASTATIN 40 MG TAB PO SCH (21:11)
[2017-10-08 23:54] LABS: CRYOGLOBULIN QUALITATIVE NEGATIVE (NEGATIVE)
[2017-10-09] VITALS (26 sets, daily range): BP systolic 117–156; BP diastolic 57–75; PULSE 62–69; RESP 18–20; TEMP 98–98.5; O2SAT 93–100
[2017-10-09 05:27] LABS: HEMOGLOBIN 8.3 GM/DL (13.0-17.0); MEAN CELL VOLUME 95.5 FL (80.0-100.0); MEAN CORPUSCULAR HEMOGLOBIN 31.7 PG (27.0-34.0); MEAN CORPUSCULAR HGB CONC 33.2 % (32.0-36.0); PLATELET COUNT 176 TH/MM3 (150-450); RED BLOOD COUNT 2.62 MIL/MM3 (4.50-5.90); RED CELL DISTRIBUTION WIDTH 16.3 % (11.6-17.2); WHITE BLOOD COUNT 5.4 TH/MM3 (4.0-11.0)
[2017-10-09 05:47] LABS: BICARBONATE 33.8 MEQ/L (21.0-32.0); CALCIUM 8.6 MG/DL (8.5-10.1); CREATININE 8.03 MG/DL (0.60-1.30); MAGNESIUM 2.6 MG/DL (1.5-2.5)
[2017-10-09] MEDS: PANTOPRAZOLE SOD 40 MG DELAYED RELEASE TAB PO SCH (06:10)
[2017-10-09] MEDS: MIDODRINE 5 MG TAB PO SCH ×3 (06:10→15:50)
[2017-10-09] MEDS: INSULIN ASPART SUPPLEMENTAL SCALE SQ SCH ×4 (08:00→22:08)
[2017-10-09] MEDS: SODIUM CHLORIDE 0.9% FLUSH 10 ML FLUSH IV FLUSH SCH ×2 (08:35→21:54)
[2017-10-09] MEDS: CLOPIDOGREL 75 MG TAB PO SCH (08:35)
[2017-10-09] MEDS: CALCIUM ACETATE 667 MG CAP PO SCH ×3 (08:35→17:52)
[2017-10-09] MEDS: MULTIVITAMINS/MINERALS THERAPEUTIC TAB PO SCH (08:35)
[2017-10-09] MEDS: POLYETHYLENE GLYCOL 17 GM PKG PO SCH (08:36)
[2017-10-09] MEDS: GABAPENTIN 100 MG CAP PO SCH ×3 (08:36→17:52)
[2017-10-09] MEDS: DOCUSATE SODIUM 100 MG CAP PO SCH ×2 (08:37→21:53)
--- NOTE | 2017-10-09 10:15 | PD.CAR.PN ---
CVT Progress Note Subjective/Hospital Course: 57-year-old patient of Dr. Hernandez who has history of end-stage renal disease , who was last seen by ourselves, Dr. Tim, on 04/13/2017. He is a patient of Dr. Hernandez who at that time was ruled in for a non-STEMI, underwent cardiac catheterization by Dr. Aguilar. At that time, he had a 60% left main, proximal LAD 70-80%, diagonal was 90, the OM was 100, RCA 100. We were consulted at that time and the films were evaluated. He had a very poor ejection fraction with EF of 25% and had very poor targets. He was turned down for cardiovascular surgery. He, however, went under complex Impella support of the left main, LAD and circumflex. He developed restenosis and had a repeat revascularization procedure in 07/2017 involving laser atherectomy, cutting balloon and balloon angioplasty. He has been this time complaining of shortness of breath, substernal discomfort. On admission in the ER, his troponin was 0.74. He has been on Brilinta and Coumadin. He underwent cardiac catheterization by Dr. May, which showed 70% left main, proximal LAD 90%, mid distal LAD 30, diagonal 20%, the circuit was 95%, the OM 30 and the RCA 95%. EF approximately 45% on the cath. He also had an echocardiogram, which showed an EF of 50-55%, some mild LVH, mild mitral regurgitation, trace AI. We were consulted to reevaluate for coronary artery bypass grafting. PAST MEDICAL HISTORY: Includes coronary artery disease with multiple interventions, end-stage renal disease, on dialysis Tuesday, , Tuesday by Dr. Corona, diabetes mellitus, hypertension, hyperlipidemia. HX of Afib was on coumadin at home surgery: 10/03 Urgent Off-pump Coronary Artery Bypass Grafting x 2 with Left Internal Mammary Artery (SANDERSON) to Left Anterior Descending (LAD), reverse saphenous vein graft to the Obtuse Marginal 2 (OM2) branch of the Left Circumflex artery, Left Leg Endoscopic Vein [place], Drainage of Pleural Effusions. EF 35% extubated after surgery crystalloid 2200cc, cell saver, 1200cc EBL 630cc 10/04 , pt had coagulopathy after surgery drained total 1400cc/ 24hrs 550cc/ last 12 hrs , received 1 unit PRBC, 1 unit cryo, 2 units FFP, 1 unit PLT HGB 8.2 remains on dobutamine and kb gtt will transfuse one unit with dialysis this am no BB, no merrill with labile BP on ASA, plavix, amiodarone will need to resume coumadin when chest tubes out, then dc plavix when INR > 2.0 10/05 for dialysis in am , weaned off Kb gtt/ started on midodrine wean 02 , will need rehab at discharge OOB/ PT leave chest tubes in / drained 160cc/ 12hrs leave in ICU today 10/06 chest tubes removed without difficulty re-start coumadin this pm / dc plavix, continue ASA received dialysis today , given albumin during course midodrine increased, will transfer to stepdown 10/07 coumadin resumed pt weak , PT/OT will need rehab at discharge HR lower side, will not tolerate BB, amiodarone dc on Midodrine 10/08 Clinically stable HD today Awaiting transfer to [facility] Discharge planning 10/09 Doing well HD yesterday tolerated well SNF placement Objective: Vital Signs Date Time Temp Pulse Resp B/P (MAP) Pulse Ox O2 Delivery O2 Flow Rate FiO2 10/09/17 10:00 66 10/09/17 09:38 98 21 10/09/17 09:00 65 10/09/17 08:00 67 10/09/17 07:00 99 Room Air 10/09/17 07:00 98.1 63 18 149/72 (97) 99 10/09/17 07:00 64 10/09/17 06:14 64 10/09/17 05:06 63 10/09/17 04:12 100 Nasal Cannula 2.00 10/09/17 04:11 98.2 65 117/57 (77) 100 10/09/17 04:02 63 10/09/17 03:00 62 10/09/17 02:33 64 10/08/17 23:00 99 Nasal Cannula 2.00 10/08/17 23:00 98.4 63 20 118/65 (82) 7 10/08/17 23:00 63 10/08/17 20:03 98 Nasal Cannula 3.00 10/08/17 19:00 69 10/08/17 19:00 98 Nasal Cannula 4.00 10/08/17 19:00 98.3 69 18 113/58 (76) 98 10/08/17 11:00 62 10/08/17 11:00 98.0 62 14 120/63 (82) 97 10/08/17 11:00 99 Nasal Cannula 1.00 Labs: Laboratory Tests Test 10/09/17 03:50 White Blood Count 5.4 TH/MM3 (4.0-11.0) Red Blood Count 2.62 MIL/MM3 (4.50-5.90) Hemoglobin 8.3 GM/DL (13.0-17.0) Hematocrit 25.0 % (39.0-51.0) Mean Corpuscular Volume 95.5 FL (80.0-100.0) Mean Corpuscular Hemoglobin 31.7 PG (27.0-34.0) Mean Corpuscular Hemoglobin Concent 33.2 % (32.0-36.0) Red Cell Distribution Width 16.3 % (11.6-17.2) Platelet Count 176 TH/MM3 (150-450) Mean Platelet Volume 9.0 FL (7.0-11.0) Blood Urea Nitrogen 44 MG/DL (7-18) Creatinine 8.03 MG/DL (0.60-1.30) Random Glucose 77 MG/DL (74-106) Calcium Level 8.6 MG/DL (8.5-10.1) Magnesium Level 2.6 MG/DL (1.5-2.5) Sodium Level 143 MEQ/L (136-145) Potassium Level 4.3 MEQ/L (3.5-5.1) Chloride Level 100 MEQ/L (98-107) Carbon Dioxide Level 33.8 MEQ/L (21.0-32.0) Anion Gap 9 MEQ/L (5-15) Estimat Glomerular Filtration Rate 7 ML/MIN (>89) Result Diagram: 10/09/17 0350 10/09/17 0350 (1) Multi-vessel coronary artery stenosis (2) NSTEMI (non-ST elevation myocardial infarction) (3) S/P CABG x 2 Plan: on ASA, plavix , amiodarone, statin increase midodrine start coumadin OOB as tolerated transfer to [facility] to [facility] [place] for rehab at discharge (4) Ischemic cardiomyopathy Plan: EF 35% , start MERRILL when BP tolerates / recheck limited echo for EF pt will not tolerate MERRILL at this time with labile BP (5) ESRD (end stage renal disease) Plan: dialysis today (6) DM (diabetes mellitus) Plan: insulin sliding scale levemir (7) Hyperlipidemia Plan: statin (8) HTN (hypertension) (9) Blood loss anemia Plan: transfuse one unit PRBC with dialysis this am Muriel Tim MD Oct 09, 2017 10:15
--- NOTE | 2017-10-09 10:25 | HHI.PR ---
Subjective Remarks The patient was working with physical therapy. He said that he still had pain from the surgery. He said he was breathing well. No acute concerns. Objective Vitals Vital Signs Date Time Temp Pulse Resp B/P (MAP) Pulse Ox O2 Delivery O2 Flow Rate FiO2 10/09/17 10:00 66 10/09/17 09:38 98 21 10/09/17 09:00 65 10/09/17 08:00 67 10/09/17 07:00 99 Room Air 10/09/17 07:00 98.1 63 18 149/72 (97) 99 10/09/17 07:00 64 10/09/17 06:14 64 10/09/17 05:06 63 10/09/17 04:12 100 Nasal Cannula 2.00 10/09/17 04:11 98.2 65 117/57 (77) 100 10/09/17 04:02 63 10/09/17 03:00 62 10/09/17 02:33 64 10/08/17 23:00 99 Nasal Cannula 2.00 10/08/17 23:00 98.4 63 20 118/65 (82) 7 10/08/17 23:00 63 10/08/17 20:03 98 Nasal Cannula 3.00 10/08/17 19:00 69 10/08/17 19:00 98 Nasal Cannula 4.00 10/08/17 19:00 98.3 69 18 113/58 (76) 98 10/08/17 11:00 62 10/08/17 11:00 98.0 62 14 120/63 (82) 97 10/08/17 11:00 99 Nasal Cannula 1.00 I/O 10/08/17 10/08/17 10/08/17 10/09/17 10/09/17 10/09/17 07:00 15:00 23:00 07:00 15:00 23:00 Intake Total 480 ml 580 ml 120 ml Output Total 0 ml 3200 ml Balance 480 ml -2620 ml 120 ml Intake Oral 480 ml 480 ml 120 ml IV Total 100 ml Output Urine Total 0 ml 200 ml Hemodialysis 3000 ml # Bowel Movements 1 1 Result Diagram: 10/09/17 0350 10/09/17 0350 Imaging Last Impressions Chest X-Ray 10/07/17 0600 Signed Impressions: Service Date/Time: Saturday, October 07, 2017 05:43 - CONCLUSION: Thoracostomy tube removal without pneumothorax Noam Sparks MD Lower Extremity Ultrasound 09/30/17 0000 Signed Impressions: Service Date/Time: Saturday, September 30, 2017 15:06 - CONCLUSION: 1. Possible old , mural nonocclusive thrombus in the proximal right greater saphenous vein. 2. Otherwise, greater saphenous veins are patent bilaterally with measurements as above. Lloyd Rodríguez MD Objective Remarks GENERAL: NAD. SKIN: Warm and dry. HEAD: Atraumatic. Normocephalic. EYES: Pupils equal and round. No scleral icterus. No injection or drainage. Extraocular muscles intact ENT: No nasal bleeding or discharge. Mucous membranes pink and moist. Tongue is midline NECK: Trachea midline. No JVD. Supple. CARDIOVASCULAR: Regular rate and rhythm. S1-S2 no S3 or S4. RESPIRATORY: No accessory muscle use. Clear to auscultation. Breath sounds equal bilaterally. GASTROINTESTINAL: Abdomen soft, non-tender, nondistended. Hepatic and splenic margins not palpable. MUSCULOSKELETAL: Extremities without clubbing, cyanosis, or edema. No obvious deformities. Right upper extremity AV fistula with good thrill and bruit in the forearm. NEUROLOGICAL: Awake and alert. No obvious cranial nerve deficits. Motor grossly within normal limits. Five out of 5 muscle strength in the arms and legs. Normal speech. PSYCHIATRIC: Slightly flattened affect. Procedures Hemodialysis 4-5 cardiac catheterization Post-cath, found to have restenosis of LM/LAD/LCx stent --cardio vascular surgery has been consulted DATE OF PROCEDURE: 09/29/2017. PROCEDURE: Left heart catheterization, coronary angiogram, moderate sedation 25 minutes, Vascade femoral closure. PREPROCEDURE DIAGNOSES: [id number] myocardial infarction, coronary artery disease. POSTPROCEDURE DIAGNOSIS: Coronary artery disease, restenosis of left main/left anterior descending/left circumflex stents. MEDICATIONS: Versed 0.5 mg, fentanyl 25 mcg. CONTRAST USED: 35 mL FLUOROSCOPY: 1.2 minutes. MODERATE SEDATION: 25 minutes. ESTIMATED BLOOD LOSS: 10 mL. PROCEDURAL SUMMARY: Dandy Singleton is a pleasant 57-year-old male whom I see in the office and presented to [facility] due to chest pain. He was found to have an elevated troponin and recommended cardiac catheterization. Risks, benefits and alternatives were explained to him and he consented to such. He was brought to the lab and prepped in the usual sterile fashion. Left femoral artery was accessed using modified Seldinger technique and placement of a 5-Sinhala sheath. This was easily aspirated and flushed. A JR4 was advanced over a J-wire to the ascending aorta and across the aortic valve for measurement of left ventricular pressure. This was pulled back across the aortic valve, showing no significant gradient of aortic stenosis. The JR4 was used for selective angiography of the right coronary artery system. This was then exchanged for a JL4, which was used for selective angiography of the left coronary artery system. The JL4 was removed over a J-wire. Vascade femoral closure device was used for the arteriotomy. The patient left the company laborer cardiovascularly stable. FINDINGS: Left main stent patent with 70% in-stent restenosis. It bifurcates into an LAD and circumflex. LAD stent and the stent from the left main into the LAD has a 90% in-stent restenosis. Mid to distal stent is patent. Distally, the vessel has diffuse 30% disease. Left circumflex stent from left main into left circumflex has a 95% restenosis. Stent in the mid portion is patent with no significant disease. It gives off 2 obtuse marginals with no significant disease. RCA is a normal size vessel with 30% disease throughout the proximal portion. Distally, the vessel is diffusely diseased of 80% to 90% throughout with subtotal occlusions. LVEDP 30. IMPRESSION: 1. Non-ST elevation myocardial infarction. 2. Coronary artery disease with complex percutaneous coronary intervention of left main, left anterior descending and left circumflex previously. RECOMMENDATIONS: 1. Mr. Singleton presented again with an elevated troponin and once again was found to have restenosis of his complex PCI. 2. As the last time I attempted to use laser arthrectomy and cutting balloons and still had restenosis, as well as now the vessels have increased in size distally due to better flow, I think that he should undergo consideration of coronary artery bypass grafting. 3. I have discussed this with CT surgery and they will see him in consultation. 4. Due to the significance of his disease, he will be placed on a heparin drip 5 hours after sheath was removed. 5. We will plan on rechecking an echo to look at his overall left ventricular function in anticipation of coronary artery bypass grafting. 6. His Brilinta will be held for anticipated coronary artery bypass grafting. 7. If at any time he has significant chest pain or becomes hemodynamically or electrically unstable, he will be taken back to the company laborer emergently for placement of intraaortic balloon pump. 8. We will plan on having him undergo hemodialysis after cardiac catheterization. Thank you for allowing me to see Dandy Singleton. If there are any questions, please do not hesitate to call. Date of Surgery: Oct 03, 2017 Preoperative Diagnosis: Postoperative Diagnosis: Procedure: 1. Urgent Off-pump Coronary Artery Bypass Grafting x 2 with Left Internal Mammary Artery (SANDERSON) to Left Anterior Descending (LAD), reverse saphenous vein graft to the Obtuse Marginal 2 (OM2) branch of the Left Circumflex artery 2. Left Leg Endoscopic Vein Prospect 3. Intraoperative Vein Mapping 4. Drainage of Pleural Effusions. Surgeon: Muriel Tim Magnetizer(s): Giorgio Chandra Operation and Findings: PREPROCEDURE DIAGNOSES 1. Severe Multi Vessel Coronary Artery Disease. 2. Acute Myocardial Infarction (NSTEMI) 3. Severe Left Ventricular Dysfunction (EF 35%) POSTPROCEDURE DIAGNOSES Same SURGICAL PROCEDURE 1. Urgent Off-pump Coronary Artery Bypass Grafting x 2 with Left Internal Mammary Artery (SANDERSON) to Left Anterior Descending (LAD), reverse saphenous vein graft to the Obtuse Marginal 2 (OM2) branch of the Left Circumflex artery 2. Left Leg Endoscopic Vein Prospect 3. Intraoperative Vein Mapping 4. Drainage of Pleural Effusions. SURGEON Muriel Tim MD PIT HAND Cynthia Russo, JULIANNE Chandra PA-C ANESTHESIA General endotracheal SERVICE INSPECTOR Agustin Villegas, LATH TIER Jamal Felix MD PREPARATION ChloraPrep. COUNTS Needle, sponge, and instrument counts were correct. DRAINS Two 32-Sinhala mediastinal tubes. COMPLICATIONS None. INDICATIONS FOR PROCEDURE The patient is a 57-year-old presenting with chest pain and AMI. Patient was noted to have multi-vessel coronary artery disease. The patient is being brought to the operating room for surgical revascularization therapy. PROCEDURE Patient was brought to the operating room and placed supine on the OR table. Following the induction of adequate general endotracheal anesthesia and placement of appropriate monitoring devices, intraoperative vein mapping was performed which revealed marginal but usable-caliber conduit in bilateral thighs. The patient was then prepped and draped in standard sterile fashion. Next, 2500 units of intravenous heparin was given. The left greater saphenous vein was harvested endoscopically. This appeared to be a small but useable- caliber conduit. Simultaneously, a median sternotomy was performed and the left internal mammary artery dissected free off the posterior sternal table. The patient was systemically heparinized and anticoagulation monitored by serial ACT measurements. The internal mammary artery had good pulsatile flow in it and was a good-caliber conduit. The pericardium was then divided in the midline , the cradle created and targets analyzed. The heart was grossly and globally dilated with severe left ventricular dysfunction by intraoperative ITZEL and visualization. At this point, all anastomoses were performed in a beating-heart fashion using the Budge stabilizing system. The left internal mammary artery was anastomosed to the mid LAD (2.25 mm) in an end-to-side fashion using 7-0 Prolene. The LAD was diffusely and heavily calcified through its entire course all the way to the apex. A relatively soft spot was identified in its mid aspect for grafting. Segment of saphenous vein graft was then anastomosed to a diffusely and heavily calcified OM2 (1.75 mm) in an end-to-side fashion using 7- 0 Prolene. The proximal anastomosis was then constructed to the ascending aorta in a running manner using 6-0 Prolene. All anastomotic sites were inspected and appeared to be hemostatic and patent. Protamine solution was given. Strict hemostasis was assured. Both pleural spaces were opened and 500 mls of serous fluid evacuated from the right space and an additional 500 from the left. The closure was undertaken. 2 chest tubes were placed. The pericardium was partially reapproximated in the midline. The sternum was approximated using sternal wires. The muscular and fascial layer were then closed in 3 layers. The endoscopic vein harvest site was closed in 2 layers. The patient tolerated the procedure well and was transferred to CVICU in stable condition. Muriel Tim MD Oct 03, 2017 11:34 <Electronically signed by Muriel Tim MD> Medications and IVs Current Medications Medications (Trade) Dose Ordered Sig/Taj Route Start Time Stop Time Status Last Admin (Tylenol) 650 mg Q6H PRN PO 09/24/17 22:15 ([place] 5-325 Mg) 1 tab Q4H PRN PO 09/24/17 22:15 10/06/17 18:48 (Lactulose Liq) 30 ml DAILY PRN PO 09/24/17 22:15 10/07/17 15:37 (Phoslo) 1,334 mg TID PO 09/25/17 09:00 10/09/17 08:35 (Catapres) 0.1 mg BID PO 09/25/17 09:00 Future Hold (Neurontin) 100 mg TID PO 09/25/17 09:00 10/09/17 08:36 (Apresoline) 50 mg TID PO 09/25/17 09:00 Future Hold (Coreg) 25 mg Q12HR PO 09/25/17 21:00 Future Hold 10/02/17 09:11 Albumin Human 100 ml @ 60 mls/hr UNSCH PRN IV 09/26/17 15:00 10/08/17 14:58 (NS Flush) 2 ml BID IV FLUSH 10/03/17 21:00 10/09/17 08:35 (NS Flush) 2 ml UNSCH PRN IV FLUSH 10/03/17 11:30 (Protonix) 40 mg DAILY@06 PO 10/04/17 06:00 10/09/17 06:10 (Tylenol) 650 mg Q4H PRN PO 10/03/17 11:30 (Percocet 5-325 Mg) 2 tab Q3H PRN PO 10/03/17 11:30 10/07/17 23:00 (Zofran Inj) 4 mg Q6H PRN IV PUSH 10/03/17 11:30 (Apresoline Inj) 10 mg Q4H PRN IV PUSH 10/03/17 11:30 (Duoneb Neb) 1 ampule Q2HR NEB PRN NEB 10/03/17 11:30 (Senokot) 8.6 mg HS PO 10/05/17 21:00 10/07/17 20:29 (Lipitor) 40 mg HS PO 10/04/17 21:00 10/08/17 21:11 (Epogen Inj) 10,000 units UNSCH PRN IV PUSH 10/04/17 15:00 10/08/17 17:00 (Colace) 100 mg BID PO 10/05/17 21:00 10/09/17 08:37 (Theragran M Tab) 1 tab DAILY PO 10/05/17 09:30 10/09/17 08:35 (Miralax) 17 gm DAILY PO 10/06/17 09:00 10/07/17 09:20 (Fleets Enema (Adult)) 118 ml UNSCH PRN RECTAL 10/05/17 09:30 10/07/17 15:38 (D50w (Vial) Inj) 50 ml UNSCH PRN IV PUSH 10/05/17 09:30 (Glucagon Inj) 1 mg UNSCH PRN OTHER 10/05/17 09:30 (Proamatine) 10 mg TID@07,12,17 PO 10/06/17 17:00 10/09/17 06:10 (Coumadin) 3 mg DAILY@16 PO 10/06/17 17:00 10/08/17 18:26 (Levemir Inj) 10 units HS SQ 10/07/17 21:00 10/08/17 21:00 (Plavix) 75 mg DAILY PO 10/08/17 09:00 10/09/17 08:35 (NovoLOG SUPPLEMENTAL SCALE) 1 ACHS SLIDING SCALE SQ 10/08/17 12:00 10/08/17 21:00 A/P Problem List: (1) NSTEMI (non-ST elevation myocardial infarction) ICD Code: I21.4 - Non-ST elevation (NSTEMI) myocardial infarction Status: Acute (2) Ischemic cardiomyopathy ICD Code: I25.5 - Ischemic cardiomyopathy Status: Chronic (3) ESRD (end stage renal disease) ICD Code: N18.6 - End stage renal disease Status: Acute (4) DM (diabetes mellitus) ICD Code: E11.9 - Type 2 diabetes mellitus without complications Assessment and Plan NSTEMI The pt had a recent NSTEMI, s/p PCI. Troponin was elevated. Cardiology was consulted. Concerned about restonosis. Had cardiac catheterization September 29, found to have restenosis of LM/LAD/LCx stent. Cardiothoracic surgery was consulted. S/p CABG X2 ON 10/04/17. Chest tube has been removed. - management per CTS. - rehab efforts. Possible d/c to acute rehab. - IS. - pain control with a bowel regimen. Ischemic cardiomyopathy Echo 08/03/17 w/ EF 40-45%, CXR w/ no acute findings. HR and blood pressure have been low. - cardiac regimen per cardiology. Holding Coreg, amiodarone, hydralazine and clonidine. Plavix has been added. - telemetry. - Is and Os. - on midodrine. DM Glucose well controlled at this time. Has been low at times. - Sliding scale w/ Accu-Cheks. ESRD On HD T//Tue. - Nephrology, Dr. Corona following. Anemia Chronic, exacerbated by surgery. - follow CBC. DVT Prophylaxis: Per surgery. Coumadin has been resumed Discharge Planning D/c when cleared by CTS. Will likely need rehab. Dandy Hernandez DO Oct 09, 2017 10:25
[2017-10-09] MEDS: ACETAMINOPHEN/HYDROcodone 325 MG/5 MG TAB PO PRN (11:01)
--- NOTE | 2017-10-09 11:27 | HHI.NPPN ---
Subjective General Problems: Anemia, Edema, Heart Disease, Hypertension Renal Failure: End Stage Renal Disease History of Present Illness 57-year-old male with past medical history of ischemic heart disease, hypertension, cardiomyopathy, end-stage renal disease, on hemodialysis 3 times per week, diabetes mellitus, came to the hospital with a complaint of recurrent chest pain. I was called to see the patient because of management of dialysis. The patient has a known history of ischemic heart disease and congestive heart failure. Additional Remarks Sitting on a chair. Weak appearing. Had dialysis yesterday. Review of Systems General Constitutional: Fatigue Respiratory Respiratory Remarks No SOB Gastrointestinal GI Remarks Denies any abdominal pain Objective Data Data Vital Signs Date Time Temp Pulse Resp B/P (MAP) Pulse Ox O2 Delivery O2 Flow Rate FiO2 10/09/17 11:00 98.2 66 20 156/75 (102) 93 10/09/17 11:00 68 10/09/17 11:00 93 Room Air 10/09/17 10:00 66 10/09/17 09:38 98 21 10/09/17 09:00 65 10/09/17 08:00 67 10/09/17 07:00 99 Room Air 10/09/17 07:00 98.1 63 18 149/72 (97) 99 10/09/17 07:00 64 10/09/17 06:14 64 10/09/17 05:06 63 10/09/17 04:12 100 Nasal Cannula 2.00 10/09/17 04:11 98.2 65 117/57 (77) 100 10/09/17 04:02 63 10/09/17 03:00 62 10/09/17 02:33 64 10/08/17 23:00 99 Nasal Cannula 2.00 10/08/17 23:00 98.4 63 20 118/65 (82) 7 10/08/17 23:00 63 10/08/17 20:03 98 Nasal Cannula 3.00 10/08/17 19:00 69 10/08/17 19:00 98 Nasal Cannula 4.00 10/08/17 19:00 98.3 69 18 113/58 (76) 98 -: 10/09/17 0350 10/09/17 0350 Physical Exam General Appearance: No Acute Distress, Comfortable Eyes Eye Exam: Pupils Equal Throat Throat Exam: Oral Mucosa [place] & Moist Neck Neck Exam: Neck Supple Pulmonary Resp Exam: Breath Sounds Equal, No Distress, Decreased Bases Cardiology CV Exam: Regular, Normal Sinus Rhythm Gastrointestinal/Abdomen GI Exam: Soft, Non-Tender, Bowel Sounds Present Integumentary Skin Exam: Clear, Warm Extremeties Extremities Exam: Trace Edema Neurologic Neuro Exam: Alert, Awake, Oriented Psychiatric Psych Exam: Appropriate Responses Assessment/Plan Discussed Condition With: Daughter Assessment Summary: Anemia of CKD, CHF, Hypertension, End Stage Renal Disease Problem List: (1) ESRD on hemodialysis ICD Codes: N18.6 - End stage renal disease; Z99.2 - Dependence on renal dialysis Plan: ESRD HD on T/TH/SAT S/P CABG X 2 on 10/03/17 Monitor fluid and electrolytes. (2) DM (diabetes mellitus) ICD Codes: E11.9 - Type 2 diabetes mellitus without complications (3) Ischemic cardiomyopathy ICD Codes: I25.5 - Ischemic cardiomyopathy Status: Chronic (4) NSTEMI (non-ST elevation myocardial infarction) ICD Codes: I21.4 - Non-ST elevation (NSTEMI) myocardial infarction Status: Acute (5) Hyperlipidemia ICD Codes: E78.5 - Hyperlipidemia, unspecified Status: Chronic (6) Anemia ICD Codes: D64.9 - Anemia, unspecified Status: Chronic (7) HTN (hypertension) ICD Codes: I10 - Essential (primary) hypertension Status: Chronic (8) Multi-vessel coronary artery stenosis ICD Codes: I25.10 - Atherosclerotic heart disease of [place] coronary artery without angina pectoris Plan Ronak Philip MD Oct 09, 2017 11:27
[2017-10-09] MEDS: WARFARIN SOD 3 MG TAB PO SCH (15:50)
[2017-10-09] MEDS: SENNOSIDES 8.6 MG TAB PO SCH (21:53)
[2017-10-09] MEDS: ATORVASTATIN 40 MG TAB PO SCH (21:53)
[2017-10-09] MEDS: INSULIN DETEMIR 100 UNITS/ML VIAL SQ SCH (21:57)
[2017-10-10] VITALS (12 sets, daily range): BP systolic 125–131; BP diastolic 67–68; PULSE 65–74; RESP 18; TEMP 97.5–98.5; O2SAT 94–96
[2017-10-10] MEDS: MIDODRINE 5 MG TAB PO SCH (07:00)
[2017-10-10] MEDS: CALCIUM ACETATE 667 MG CAP PO SCH (08:46)
[2017-10-10] MEDS: PANTOPRAZOLE SOD 40 MG DELAYED RELEASE TAB PO SCH (08:46)
[2017-10-10] MEDS: CLOPIDOGREL 75 MG TAB PO SCH (08:46)
[2017-10-10] MEDS: GABAPENTIN 100 MG CAP PO SCH (08:46)
[2017-10-10] MEDS: POLYETHYLENE GLYCOL 17 GM PKG PO SCH (08:46)
[2017-10-10] MEDS: MULTIVITAMINS/MINERALS THERAPEUTIC TAB PO SCH (08:46)
[2017-10-10] MEDS: LACTULOSE SYRUP 20 GM/30 ML CUP PO PRN (08:48)
[2017-10-10] MEDS: INSULIN ASPART SUPPLEMENTAL SCALE SQ SCH (08:48)
[2017-10-10] MEDS: SODIUM CHLORIDE 0.9% FLUSH 10 ML FLUSH IV FLUSH SCH (08:48)
[2017-10-10] MEDS: DOCUSATE SODIUM 100 MG CAP PO SCH (08:48)
--- NOTE | 2017-10-10 10:15 | PD.CAR.PN ---
CVT Progress Note Subjective/Hospital Course: 57-year-old patient of Dr. Hernandez who has history of end-stage renal disease , who was last seen by ourselves, Dr. Tim, on 04/13/2017. He is a patient of Dr. Hernandez who at that time was ruled in for a non-STEMI, underwent cardiac catheterization by Dr. Aguilar. At that time, he had a 60% left main, proximal LAD 70-80%, diagonal was 90, the OM was 100, RCA 100. We were consulted at that time and the films were evaluated. He had a very poor ejection fraction with EF of 25% and had very poor targets. He was turned down for cardiovascular surgery. He, however, went under complex Impella support of the left main, LAD and circumflex. He developed restenosis and had a repeat revascularization procedure in 07/2017 involving laser atherectomy, cutting balloon and balloon angioplasty. He has been this time complaining of shortness of breath, substernal discomfort. On admission in the ER, his troponin was 0.74. He has been on Brilinta and Coumadin. He underwent cardiac catheterization by Dr. May, which showed 70% left main, proximal LAD 90%, mid distal LAD 30, diagonal 20%, the circuit was 95%, the OM 30 and the RCA 95%. EF approximately 45% on the cath. He also had an echocardiogram, which showed an EF of 50-55%, some mild LVH, mild mitral regurgitation, trace AI. We were consulted to reevaluate for coronary artery bypass grafting. PAST MEDICAL HISTORY: Includes coronary artery disease with multiple interventions, end-stage renal disease, on dialysis Tuesday, , Tuesday by Dr. Corona, diabetes mellitus, hypertension, hyperlipidemia. HX of Afib was on coumadin at home surgery: 10/03 Urgent Off-pump Coronary Artery Bypass Grafting x 2 with Left Internal Mammary Artery (SANDERSON) to Left Anterior Descending (LAD), reverse saphenous vein graft to the Obtuse Marginal 2 (OM2) branch of the Left Circumflex artery, Left Leg Endoscopic Vein [place], Drainage of Pleural Effusions. EF 35% extubated after surgery crystalloid 2200cc, cell saver, 1200cc EBL 630cc 10/04 , pt had coagulopathy after surgery drained total 1400cc/ 24hrs 550cc/ last 12 hrs , received 1 unit PRBC, 1 unit cryo, 2 units FFP, 1 unit PLT HGB 8.2 remains on dobutamine and kb gtt will transfuse one unit with dialysis this am no BB, no merrill with labile BP on ASA, plavix, amiodarone will need to resume coumadin when chest tubes out, then dc plavix when INR > 2.0 10/05 for dialysis in am , weaned off Kb gtt/ started on midodrine wean 02 , will need rehab at discharge OOB/ PT leave chest tubes in / drained 160cc/ 12hrs leave in ICU today 10/06 chest tubes removed without difficulty re-start coumadin this pm / dc plavix, continue ASA received dialysis today , given albumin during course midodrine increased, will transfer to stepdown 10/07 coumadin resumed pt weak , PT/OT will need rehab at discharge HR lower side, will not tolerate BB, amiodarone dc on Midodrine 10/08 Clinically stable HD today Awaiting transfer to [facility] Discharge planning 10/09 Doing well HD yesterday tolerated well SNF placement 10/10 on room air, stable for discharge to rehab today prevena dressing removed incision in tact and well approximated reduce dose of midodrine no BB 2/2 labile BP and low HR no MERRILL 2/2 labile BP stable for discharge to rehab Objective: Vital Signs Date Time Temp Pulse Resp B/P (MAP) Pulse Ox O2 Delivery O2 Flow Rate FiO2 10/10/17 06:08 68 10/10/17 04:00 67 10/10/17 03:34 94 Room Air 10/10/17 03:34 98.5 67 18 125/67 (86) 94 10/10/17 03:00 67 10/10/17 02:00 65 10/10/17 01:00 67 10/10/17 00:00 66 10/10/17 00:00 98.5 67 18 125/67 (86) 94 10/10/17 00:00 94 Room Air 10/09/17 23:00 66 10/09/17 22:00 66 10/09/17 21:00 64 10/09/17 20:49 94 21 10/09/17 20:00 64 10/09/17 20:00 98.5 64 18 120/60 (80) 93 10/09/17 20:00 93 Room Air 10/09/17 19:00 64 10/09/17 18:00 64 10/09/17 17:00 66 10/09/17 16:00 63 10/09/17 15:00 98.0 65 18 124/65 (84) 94 10/09/17 15:00 94 Room Air 10/09/17 15:00 64 10/09/17 14:00 68 10/09/17 13:00 67 10/09/17 12:00 69 10/09/17 11:00 98.2 66 20 156/75 (102) 93 10/09/17 11:00 68 10/09/17 11:00 93 Room Air Labs: GENERAL: A &O x 3 SKIN: Warm and dry. sternal incision intact and well approximated left EVH site intact HEAD: Normocephalic. EYES: No scleral icterus. No injection or drainage. NECK: Supple, trachea midline. No JVD or lymphadenopathy. CARDIOVASCULAR: Regular rate and rhythm without murmurs, gallops, or rubs. RESPIRATORY: Breath sounds equal bilaterally. No accessory muscle use. GASTROINTESTINAL: Abdomen soft, non-tender, nondistended. MUSCULOSKELETAL: No cyanosis, or edema. BACK: Nontender without obvious deformity. No CVA tenderness. Result Diagram: 10/09/17 0350 10/09/17 0350 (1) Multi-vessel coronary artery stenosis (2) NSTEMI (non-ST elevation myocardial infarction) (3) S/P CABG x 2 Plan: on ASA, plavix , statin decrease midodrine coumadin OOB as tolerated transfer to stepdown ok to transfer to rehab (4) Ischemic cardiomyopathy Plan: EF 25-35% unable to start merrill 2/2 labile BP/ pt on Midodrine to keep BP up (5) ESRD (end stage renal disease) Plan: dialysis today (6) DM (diabetes mellitus) Plan: insulin sliding scale levemir (7) Hyperlipidemia Plan: statin (8) HTN (hypertension) (9) Blood loss anemia Plan: transfuse one unit PRBC with dialysis this am Lottie Monteiro Oct 10, 2017 10:15
[2017-10-10] MEDS ORDERED: LEVEMIR SQ (10:52)
[2017-10-10] MEDS ORDERED: PANT40TA3 PO (10:52)
[2017-10-10] MEDS ORDERED: Albuterol-Ipratropium Neb NEB (10:52)
[2017-10-10] MEDS ORDERED: ACET325T15 PO (10:52)
[2017-10-10] MEDS ORDERED: GABA100C4 PO (10:52)
[2017-10-10] MEDS ORDERED: DOCU1CAP39 PO (10:52)
[2017-10-10] MEDS ORDERED: PLAV75TA29 PO (10:52)
[2017-10-10] MEDS ORDERED: ATOR40TA16 PO (10:52)
[2017-10-10] MEDS ORDERED: COUM3TAB PO (10:52)
[2017-10-10] MEDS ORDERED: MIDO5TAB PO (10:52)
[2017-10-10] MEDS ORDERED: POLY17S PO (10:52)
--- NOTE | 2017-10-10 10:55 | HHI.DS ---
Discharge Summary Admission Date Sep 24, 2017 at 22:32 Discharge Date: Oct 10, 2017 Admitting Diagnosis NSTEMI (1) NSTEMI (non-ST elevation myocardial infarction) ICD Code: I21.4 - Non-ST elevation (NSTEMI) myocardial infarction Diagnosis: Principal Status: Acute (2) Ischemic cardiomyopathy ICD Code: I25.5 - Ischemic cardiomyopathy Diagnosis: Principal Status: Chronic (3) ESRD (end stage renal disease) ICD Code: N18.6 - End stage renal disease Diagnosis: Principal Status: Chronic (4) DM (diabetes mellitus) ICD Code: E11.9 - Type 2 diabetes mellitus without complications Diagnosis: Principal Status: Chronic Procedures Hemodialysis 4-5 cardiac catheterization Post-cath, found to have restenosis of LM/LAD/LCx stent --cardio vascular surgery has been consulted DATE OF PROCEDURE: 09/29/2017. PROCEDURE: Left heart catheterization, coronary angiogram, moderate sedation 25 minutes, Vascade femoral closure. PREPROCEDURE DIAGNOSES: [id number] myocardial infarction, coronary artery disease. POSTPROCEDURE DIAGNOSIS: Coronary artery disease, restenosis of left main/left anterior descending/left circumflex stents. MEDICATIONS: Versed 0.5 mg, fentanyl 25 mcg. CONTRAST USED: 35 mL FLUOROSCOPY: 1.2 minutes. MODERATE SEDATION: 25 minutes. ESTIMATED BLOOD LOSS: 10 mL. PROCEDURAL SUMMARY: Dandy Singleton is a pleasant 57-year-old male whom I see in the office and presented to [facility] due to chest pain. He was found to have an elevated troponin and recommended cardiac catheterization. Risks, benefits and alternatives were explained to him and he consented to such. He was brought to the lab and prepped in the usual sterile fashion. Left femoral artery was accessed using modified Seldinger technique and placement of a 5-[place]an sheath. This was easily aspirated and flushed. A JR4 was advanced over a J-wire to the ascending aorta and across the aortic valve for measurement of left ventricular pressure. This was pulled back across the aortic valve, showing no significant gradient of aortic stenosis. The JR4 was used for selective angiography of the right coronary artery system. This was then exchanged for a JL4, which was used for selective angiography of the left coronary artery system. The JL4 was removed over a J-wire. Vascade femoral closure device was used for the arteriotomy. The patient left the cardiac cath tech cardiovascularly stable. FINDINGS: Left main stent patent with 70% in-stent restenosis. It bifurcates into an LAD and circumflex. LAD stent and the stent from the left main into the LAD has a 90% in-stent restenosis. Mid to distal stent is patent. Distally, the vessel has diffuse 30% disease. Left circumflex stent from left main into left circumflex has a 95% restenosis. Stent in the mid portion is patent with no significant disease. It gives off 2 obtuse marginals with no significant disease. RCA is a normal size vessel with 30% disease throughout the proximal portion. Distally, the vessel is diffusely diseased of 80% to 90% throughout with subtotal occlusions. LVEDP 30. IMPRESSION: 1. Non-ST elevation myocardial infarction. 2. Coronary artery disease with complex percutaneous coronary intervention of left main, left anterior descending and left circumflex previously. RECOMMENDATIONS: 1. Mr. Singleton presented again with an elevated troponin and once again was found to have restenosis of his complex PCI. 2. As the last time I attempted to use laser arthrectomy and cutting balloons and still had restenosis, as well as now the vessels have increased in size distally due to better flow, I think that he should undergo consideration of coronary artery bypass grafting. 3. I have discussed this with CT surgery and they will see him in consultation. 4. Due to the significance of his disease, he will be placed on a heparin drip 5 hours after sheath was removed. 5. We will plan on rechecking an echo to look at his overall left ventricular function in anticipation of coronary artery bypass grafting. 6. His Brilinta will be held for anticipated coronary artery bypass grafting. 7. If at any time he has significant chest pain or becomes hemodynamically or electrically unstable, he will be taken back to the cardiac cath tech emergently for placement of intraaortic balloon pump. 8. We will plan on having him undergo hemodialysis after cardiac catheterization. Thank you for allowing me to see Dandy Singleton. If there are any questions, please do not hesitate to call. Date of Surgery: Oct 03, 2017 Preoperative Diagnosis: Postoperative Diagnosis: Procedure: 1. Urgent Off-pump Coronary Artery Bypass Grafting x 2 with Left Internal Mammary Artery (SANDERSON) to Left Anterior Descending (LAD), reverse saphenous vein graft to the Obtuse Marginal 2 (OM2) branch of the Left Circumflex artery 2. Left Leg Endoscopic Vein [place] 3. Intraoperative Vein Mapping 4. Drainage of Pleural Effusions. Surgeon: Muriel Tim Newspaper Journalist(s): Giorgio Chandra Operation and Findings: PREPROCEDURE DIAGNOSES 1. Severe Multi Vessel Coronary Artery Disease. 2. Acute Myocardial Infarction (NSTEMI) 3. Severe Left Ventricular Dysfunction (EF 35%) POSTPROCEDURE DIAGNOSES Same SURGICAL PROCEDURE 1. Urgent Off-pump Coronary Artery Bypass Grafting x 2 with Left Internal Mammary Artery (SANDERSON) to Left Anterior Descending (LAD), reverse saphenous vein graft to the Obtuse Marginal 2 (OM2) branch of the Left Circumflex artery 2. Left Leg Endoscopic Vein [place] 3. Intraoperative Vein Mapping 4. Drainage of Pleural Effusions. SURGEON Muriel Tim MD JEWELRY DEPARTMENT SUPERVISOR Cynthia Russo, JULIANNE Chandra PA-C ANESTHESIA General endotracheal MATERNAL FETAL PHYSICIAN Agustin Villegas, LUDLOW MACHINE OPERATOR Jamal Felix MD PREPARATION ChloraPrep. COUNTS Needle, sponge, and instrument counts were correct. DRAINS Two 32-[place] mediastinal tubes. COMPLICATIONS None. INDICATIONS FOR PROCEDURE The patient is a 57-year-old presenting with chest pain and AMI. Patient was noted to have multi-vessel coronary artery disease. The patient is being brought to the operating room for surgical revascularization therapy. PROCEDURE Patient was brought to the operating room and placed supine on the OR table. Following the induction of adequate general endotracheal anesthesia and placement of appropriate monitoring devices, intraoperative vein mapping was performed which revealed marginal but usable-caliber conduit in bilateral thighs. The patient was then prepped and draped in standard sterile fashion. Next, 2500 units of intravenous heparin was given. The left greater saphenous vein was harvested endoscopically. This appeared to be a small but useable- caliber conduit. Simultaneously, a median sternotomy was performed and the left internal mammary artery dissected free off the posterior sternal table. The patient was systemically heparinized and anticoagulation monitored by serial ACT measurements. The internal mammary artery had good pulsatile flow in it and was a good-caliber conduit. The pericardium was then divided in the midline , the cradle created and targets analyzed. The heart was grossly and globally dilated with severe left ventricular dysfunction by intraoperative ITZEL and visualization. At this point, all anastomoses were performed in a beating-heart fashion using the Maquet stabilizing system. The left internal mammary artery was anastomosed to the mid LAD (2.25 mm) in an end-to-side fashion using 7-0 Prolene. The LAD was diffusely and heavily calcified through its entire course all the way to the apex. A relatively soft spot was identified in its mid aspect for grafting. Segment of saphenous vein graft was then anastomosed to a diffusely and heavily calcified OM2 (1.75 mm) in an end-to-side fashion using 7- 0 Prolene. The proximal anastomosis was then constructed to the ascending aorta in a running manner using 6-0 Prolene. All anastomotic sites were inspected and appeared to be hemostatic and patent. Protamine solution was given. Strict hemostasis was assured. Both pleural spaces were opened and 500 mls of serous fluid evacuated from the right space and an additional 500 from the left. The closure was undertaken. 2 chest tubes were placed. The pericardium was partially reapproximated in the midline. The sternum was approximated using sternal wires. The muscular and fascial layer were then closed in 3 layers. The endoscopic vein harvest site was closed in 2 layers. The patient tolerated the procedure well and was transferred to CVICU in stable condition. Muriel Tim MD Oct 03, 2017 11:34 <Electronically signed by Muriel Tim MD> Brief History - From Admission This is a 57-year-old male with a PMH of HTN, CAD, Ischemic Cardiomyopathy ( Echo 08/03/2017 w/ EF 40-45%), DM and ESRD on HD T//Tue who presented to the ER w/ complaints of chest pain and SOB. Recent admit for similar complaints 08/01- found to have NSTEMI, s/p Cath w/ PCI of LM/LAD/LCx, reports on Brilinta and Coumadin, compliant w/ meds. States doing well after discharge, but had PFTs done 09/16/17 and developed severe chest pain few days after. Pain is substernal, 8/10, non-radiating, associated w/ SOB. On arrival, BP 106/66, HR 62, O2 sat 98% RA, Afebrile. CBC at baseline. Chemistry essentially at baseline. Troponin 0.74. INR 2.7. CXR with no acute findings. Currently chest pain free. Follows w/ Dr. May w/ Cardiology and Dr. Chloe muller/ Nephro CBC/BMP: 10/09/17 0350 10/09/17 0350 Significant Findings Laboratory Tests Test 10/08/17 02:54 10/09/17 03:50 Red Blood Count 2.64 MIL/MM3 (4.50-5.90) 2.62 MIL/MM3 (4.50-5.90) Hemoglobin 8.3 GM/DL (13.0-17.0) 8.3 GM/DL (13.0-17.0) Hematocrit 25.3 % (39.0-51.0) 25.0 % (39.0-51.0) Prothrombin Time 13.1 SEC (9.8-11.6) Blood Urea Nitrogen 60 MG/DL (7-18) 44 MG/DL (7-18) Creatinine 10.07 MG/DL (0.60-1.30) 8.03 MG/DL (0.60-1.30) Random Glucose 170 MG/DL (74-106) Calcium Level 8.4 MG/DL (8.5-10.1) Magnesium Level 2.8 MG/DL (1.5-2.5) 2.6 MG/DL (1.5-2.5) Potassium Level 5.3 MEQ/L (3.5-5.1) Carbon Dioxide Level 32.5 MEQ/L (21.0-32.0) 33.8 MEQ/L (21.0-32.0) Estimat Glomerular Filtration Rate 5 ML/MIN (>89) 7 ML/MIN (>89) PE at Discharge GENERAL: NAD. SKIN: Warm and dry. HEAD: Atraumatic. Normocephalic. EYES: Pupils equal and round. No scleral icterus. No injection or drainage. Extraocular muscles intact ENT: No nasal bleeding or discharge. Mucous membranes pink and moist. Tongue is midline NECK: Trachea midline. No JVD. Supple. CARDIOVASCULAR: Regular rate and rhythm. S1-S2 no S3 or S4. RESPIRATORY: No accessory muscle use. Clear to auscultation. Breath sounds equal bilaterally. GASTROINTESTINAL: Abdomen soft, non-tender, nondistended. Hepatic and splenic margins not palpable. MUSCULOSKELETAL: Extremities without clubbing, cyanosis, or edema. No obvious deformities. Right upper extremity AV fistula with good thrill and bruit in the forearm. NEUROLOGICAL: Awake and alert. No obvious cranial nerve deficits. Motor grossly within normal limits. Five out of 5 muscle strength in the arms and legs. Normal speech. PSYCHIATRIC: Slightly flattened affect. Pt update on day of discharge The patient was resting comfortably. He had no acute complaints. He said he ate his breakfast. He says he has been having normal bowel movements. He denies any pain. Discussed with nursing. Hospital Course NSTEMI The pt had a recent NSTEMI, s/p PCI. Troponin was elevated. Cardiology was consulted and was concerned about restonosis. Had cardiac catheterization September 29, found to have restenosis of LM/LAD/LCx stent. Cardiothoracic surgery was consulted. S/p CABG X2 ON 10/04/17. Chest tube has been removed. The pt worked with physical and occupational therapy. His cardiac regimen was adjusted. He received incentive spirometry. He received pain control with a bowel regimen. He is stable for discharge to acute rehab. He will follow up with cardiothoracic surgery. Ischemic cardiomyopathy Echo 08/03/17 w/ EF 40-45%, CXR w/ no acute findings. HR and blood pressure have been low. Cardiology and cardiothoracic surgery followed the pt. We discontinued Coreg, amiodarone, hydralazine and clonidine s/t hypotension. The pt was started on midodrine. Plavix has been added. He was monitored on telemetry. We followed Is and Os. He will follow up with cardiology as an outpt. DM Glucose has been low at times. He was placed on a sliding scale w/ Accu-Cheks. He will be discharged on a reduced dose of long acting insulin, which may be adjusted as needed. ESRD On HD /. Nephrology was consulted and the pt was continued on dialysis as scheduled. Anemia Hemoglobin has been stable following surgery. Pt Condition on Discharge: Stable Discharge Disposition: Rehab Inpatient Discharge Time: > 30 minutes Discharge Instructions DIET: Follow Instructions for: Renal Failure Diet Activities you can perform: Weight Bearing as Agustin Follow up Referrals: Appointment for Follow Up - 4 Weeks with Jeana Corona MD Cardiology - 4 Weeks PCP Follow-up - 2 Weeks with Noam Bunn MD Surgical - 2 Weeks with Muriel Tim MD New Orders: PT/INR - 2-3 Days New Medications: Acetaminophen (Eq Acetaminophen) 325 Mg Tab 650 MG PO Q6H PRN for PAIN SCALE 1 TO 2, #30 TAB Atorvastatin (Atorvastatin) 40 Mg Tab 40 MG PO HS for Cholesterol Management, #30 TAB Clopidogrel (Plavix) 75 Mg Tab 75 MG PO DAILY for Heart, #30 TAB Docusate Sodium (Dok) 100 Mg Cap 100 MG PO BID for Constipation, #60 CAP Gabapentin (Gabapentin) 100 Mg Cap 100 MG PO TID for Pain, #90 CAP Insulin Detemir Inj (Levemir Inj) 1,000 unit/ 10 ML Vial 15 UNITS SQ HS for Blood Sugar Management, #30 INJECTION Do not mix with any other Insulin. Midodrine (Midodrine) 5 Mg Tab 5 MG PO TID@07,12,17 for Blood Pressure Management, #30 TAB Pantoprazole (Pantoprazole) 40 Mg Tab 40 MG PO DAILY@06 for stomach, #30 TAB Polyethylene Glycol 3350 Powder (Polyethylene Glycol 3350 Powder) 17 Gram Pow 17 GM PO DAILY for Constipation, #12 PACKET Warfarin (Coumadin) 3 Mg Tab 3 MG PO DAILY@16 for Blood Clot Prevention, #30 TAB [Albuterol-Ipratropium Neb] () 1 AMPULE NEBU 1 AMPULE NEB Q2HR NEB PRN for WHEEZING Continued Medications: Calcium Acetate (Phosphate Bin (Calcium Acetate) 667 Mg Cap 1334 MG PO TID Insulin Aspart Inj (Novolog Inj) 1,000 Unit/10 Ml Vial UNITS SQ TID for Blood Sugar Management, #10 ML 0 Refills Nitroglycerin SL (Nitrostat SL) 0.4 Mg Subl 0.4 MG SL UNSCH PRN for CHEST PAIN, #30 MG Discontinued Medications: Alprazolam (Xanax) 0.25 Mg Tab 0.25 MG PO Q8H PRN for ANXIETY, #10 TAB Amiodarone (Amiodarone) 200 Mg Tab 200 MG PO BID for Regulate Heart Beat, #60 TAB 11 Refills Carvedilol (Carvedilol) 25 Mg Tab 25 MG PO BID, #60 TAB 0 Refills Clonidine (Clonidine) 0.1 Mg Tab 0.1 MG PO BID for Blood Pressure Management, #60 TAB 0 Refills Gabapentin (Neurontin) 100 Mg Cap 300 MG PO TID, #90 CAP 0 Refills Hydralazine HCl (Hydralazine HCl) 50 Mg Tablet 50 MG PO TID Insulin Detemir Inj (Levemir Inj) 1,000 unit/ 10 ML Vial 25 UNITS SQ DAILY for Blood Sugar Management for 30 Days, #6 VIAL 0 Refills Do not mix with any other Insulin. Insulin Detemir Inj (Levemir Inj) 1,000 unit/ 10 ML Vial 30 UNITS SQ HS for Blood Sugar Management for 30 Days, #6 VIAL 0 Refills Do not mix with any other Insulin. Isosorbide Mononitrate ER (Isosorbide Mononitrate ER) 60 Mg Tab 60 MG PO DAILY@07 for Prevent Heart Failure, #30 TAB 3 Refills Losartan (Losartan) 50 Mg Tab 50 MG PO DAILY for Blood Pressure Management, #30 TAB 0 Refills Ticagrelor (Brilinta) 90 Mg Tab 90 MG PO BID for Blood Clot Prevention for 30 Days, #60 TAB Warfarin (Coumadin) 5 Mg Tab 5 MG PO DAILY@1600 for Prevent Blood Clot, #30 TAB 11 Refills Dandy Hernandez DO Oct 10, 2017 10:55
--- NOTE | 2017-10-10 10:57 | HHI.DCPOC ---
Discharge Care Plan Diagnosis: (1) S/P CABG x 2 (2) Multi-vessel coronary artery stenosis (3) ESRD on hemodialysis (4) Anemia (5) DM (diabetes mellitus) (6) Weakness Goals to Promote Your Health * To prevent worsening of your condition and complications * To maintain your health at the optimal level Directions to Meet Your Goals Take your medications as prescribed Follow your dietary instruction Follow activity as directed Keep your appointments as scheduled Take your immunizations and boosters as scheduled If your symptoms worsen call your PCP, if no PCP go to Urgent Care Center or Emergency Room Smoking is Dangerous to Your Health. Avoid second hand smoke Call the 24-hour hour crisis hotline for domestic abuse at Dandy Hernandez DO Oct 10, 2017 10:57
[2017-10-10] MEDS ORDERED: MIDODRINE 5 MG TAB PO SCH (12:00)
[2017-10-10] MEDS ORDERED: CALC1CAP PO (13:54)
--- NOTE | 2017-10-10 15:28 | HHI.NPPN ---
Subjective General Problems: Anemia, Edema, Heart Disease, Hypertension Renal Failure: End Stage Renal Disease History of Present Illness 57-year-old male with past medical history of ischemic heart disease, hypertension, cardiomyopathy, end-stage renal disease, on hemodialysis 3 times per week, diabetes mellitus, came to the hospital with a complaint of recurrent chest pain. I was called to see the patient because of management of dialysis. The patient has a known history of ischemic heart disease and congestive heart failure. Additional Remarks Patient seen in morning. Sitting up in chair plans for [facility] rehab today. (Racquel Hooks) Review of Systems General Constitutional: Fatigue (Racquel Hooks) Respiratory Respiratory Remarks No SOB (Racquel Hooks) Gastrointestinal GI Remarks Denies any abdominal pain (Racquel Hooks) Objective Data Data Vital Signs Date Time Temp Pulse Resp B/P (MAP) Pulse Ox O2 Delivery O2 Flow Rate FiO2 10/10/17 11:16 97.6 74 18 130/68 (88) 94 10/10/17 11:16 94 Room Air 10/10/17 10:33 69 10/10/17 09:00 69 10/10/17 08:15 67 10/10/17 08:15 96 Room Air 10/10/17 08:15 97.5 71 18 131/67 (88) 96 10/10/17 08:07 94 21 10/10/17 06:08 68 10/10/17 04:00 67 10/10/17 03:34 94 Room Air 10/10/17 03:34 98.5 67 18 125/67 (86) 94 10/10/17 03:00 67 10/10/17 02:00 65 10/10/17 01:00 67 10/10/17 00:00 66 10/10/17 00:00 98.5 67 18 125/67 (86) 94 10/10/17 00:00 94 Room Air 10/09/17 23:00 66 10/09/17 22:00 66 10/09/17 21:00 64 10/09/17 20:49 94 21 10/09/17 20:00 64 10/09/17 20:00 98.5 64 18 120/60 (80) 93 10/09/17 20:00 93 Room Air 10/09/17 19:00 64 10/09/17 18:00 64 10/09/17 17:00 66 10/09/17 16:00 63 (Racquel Hooks) -: 10/09/17 0350 10/09/17 0350 Physical Exam General Appearance: No Acute Distress, Comfortable (Racquel Hooks) Eyes Eye Exam: Pupils Equal (Racquel Hooks) Throat Throat Exam: Oral Mucosa [place] & Moist (Racquel Hooks) Neck Neck Exam: Neck Supple (Racquel Hooks) Pulmonary Resp Exam: Breath Sounds Equal, No Distress, Decreased Bases (Racquel Hooks) Cardiology CV Exam: Regular, Normal Sinus Rhythm (Racquel Hooks) Gastrointestinal/Abdomen GI Exam: Soft, Non-Tender, Bowel Sounds Present (Racquel Hooks) Integumentary Skin Exam: Clear, Warm (Racquel Hooks) Extremeties Extremities Exam: Trace Edema (Racquel Hooks) Neurologic Neuro Exam: Alert, Awake, Oriented (Racquel Hooks) Psychiatric Psych Exam: Appropriate Responses (Racquel Hooks) Assessment/Plan Discussed Condition With: Daughter Assessment Summary: Anemia of CKD, CHF, Hypertension, End Stage Renal Disease Problem List: (1) ESRD on hemodialysis ICD Codes: N18.6 - End stage renal disease; Z99.2 - Dependence on renal dialysis Plan: ESRD HD on //SAT S/P CABG X 2 on 10/03/17 Monitor fluid and electrolytes. Dialysis planned for tomorrow (2) DM (diabetes mellitus) ICD Codes: E11.9 - Type 2 diabetes mellitus without complications Status: Chronic (3) Ischemic cardiomyopathy ICD Codes: I25.5 - Ischemic cardiomyopathy Status: Chronic (4) NSTEMI (non-ST elevation myocardial infarction) ICD Codes: I21.4 - Non-ST elevation (NSTEMI) myocardial infarction Status: Acute (5) Hyperlipidemia ICD Codes: E78.5 - Hyperlipidemia, unspecified Status: Chronic (6) Anemia ICD Codes: D64.9 - Anemia, unspecified Status: Chronic (7) HTN (hypertension) ICD Codes: I10 - Essential (primary) hypertension Status: Chronic (8) Multi-vessel coronary artery stenosis ICD Codes: I25.10 - Atherosclerotic heart disease of [place] coronary artery without angina pectoris Status: Chronic Plan (Racquel Hooks) Problem List: (1) ESRD on hemodialysis ICD Codes: N18.6 - End stage renal disease; Z99.2 - Dependence on renal dialysis Plan: ESRD HD on //TUE S/P CABG X 2 on 10/03/17 Monitor fluid and electrolytes. Dialysis planned for tomorrow. Patient seen and examined, agree with above. For D/C to SNF. HD to continue TTS. (2) DM (diabetes mellitus) ICD Codes: E11.9 - Type 2 diabetes mellitus without complications Status: Chronic (3) Ischemic cardiomyopathy ICD Codes: I25.5 - Ischemic cardiomyopathy Status: Chronic (4) NSTEMI (non-ST elevation myocardial infarction) ICD Codes: I21.4 - Non-ST elevation (NSTEMI) myocardial infarction Status: Acute (5) Hyperlipidemia ICD Codes: E78.5 - Hyperlipidemia, unspecified Status: Chronic (6) Anemia ICD Codes: D64.9 - Anemia, unspecified Status: Chronic (7) HTN (hypertension) ICD Codes: I10 - Essential (primary) hypertension Status: Chronic (8) Multi-vessel coronary artery stenosis ICD Codes: I25.10 - Atherosclerotic heart disease of [place] coronary artery without angina pectoris Status: Chronic (Jeana Corona MD) Racquel Hooks Oct 10, 2017 15:28 Jeana Corona MD Oct 10, 2017 18:37
== END 2017-10-10 12:08 | DRG 233 ==
LOC: NED 19:45 → NEDA 22:32 → NEDH 09-25 02:57 → HCIS 09-25 08:28 → HCPC 10-02 15:45 → HCVI 10-03 12:50 → HCPC 10-09 02:19
PROVIDERS: ADMIT Hospitalist; ATTEND Hospitalist
PROC: 5A1D70Z Performance of Urinary Filtration, Intermittent, Less than 6 Hours Per Day (ICD-10-PCS; 2017-09-26)
PROC: 4A023N7 Measurement of Cardiac Sampling and Pressure, Left Heart, Percutaneous Approach (ICD-10-PCS; 2017-09-29)
PROC: B2111ZZ Fluoroscopy of Multiple Coronary Arteries using Low Osmolar Contrast (ICD-10-PCS; 2017-09-29)
PROC: 30233N1 Transfusion of Nonautologous Red Blood Cells into Peripheral Vein, Percutaneous Approach (ICD-10-PCS; 2017-10-02)
PROC: 06BQ4ZZ Excision of Left Saphenous Vein, Percutaneous Endoscopic Approach (ICD-10-PCS; 2017-10-03)
PROC: 021009W Bypass Coronary Artery, One Artery from Aorta with Autologous Venous Tissue, Open Approach (ICD-10-PCS; 2017-10-03)
PROC: 0T9B70Z Drainage of Bladder with Drainage Device, Via Natural or Artificial Opening (ICD-10-PCS; 2017-10-03)
PROC: 30233K1 Transfusion of Nonautologous Frozen Plasma into Peripheral Vein, Percutaneous Approach (ICD-10-PCS; 2017-10-03)
PROC: 30233R1 Transfusion of Nonautologous Platelets into Peripheral Vein, Percutaneous Approach (ICD-10-PCS; 2017-10-03)
PROC: 0D9670Z Drainage of Stomach with Drainage Device, Via Natural or Artificial Opening (ICD-10-PCS; 2017-10-03)
PROC: B246ZZ4 Ultrasonography of Right and Left Heart, Transesophageal (ICD-10-PCS; 2017-10-03)
PROC: 02100Z9 Bypass Coronary Artery, One Artery from Left Internal Mammary, Open Approach (ICD-10-PCS; principal; 2017-10-03 07:21)
DX: I21.4 Non-ST elevation (NSTEMI) myocardial infarction (principal); T82.855A Stenosis of coronary artery stent, initial encounter; N18.6 End stage renal disease; I13.2 Hypertensive heart and chronic kidney disease with heart failure and with stage 5 chronic kidney disease, or end stage renal disease; E11.22 Type 2 diabetes mellitus with diabetic chronic kidney disease; I25.82 Chronic total occlusion of coronary artery; E87.5 Hyperkalemia; L89.153 Pressure ulcer of sacral region, stage 3; L89.323 Pressure ulcer of left buttock, stage 3; L89.313 Pressure ulcer of right buttock, stage 3; I48.91 Unspecified atrial fibrillation; I50.9 Heart failure, unspecified; Y83.1 Surgical operation with implant of artificial internal device as the cause of abnormal reaction of the patient, or of later complication, without mention of misadventure at the time of the procedure; I25.2 Old myocardial infarction; E11.319 Type 2 diabetes mellitus with unspecified diabetic retinopathy without macular edema; E66.9 Obesity, unspecified; Z68.39 Body mass index [BMI] 39.0-39.9, adult; E78.5 Hyperlipidemia, unspecified; I25.119 Atherosclerotic heart disease of native coronary artery with unspecified angina pectoris; D63.1 Anemia in chronic kidney disease; I25.5 Ischemic cardiomyopathy; Z99.2 Dependence on renal dialysis; Z83.3 Family history of diabetes mellitus; Z82.49 Family history of ischemic heart disease and other diseases of the circulatory system; Z79.4 Long term (current) use of insulin; R79.1 Abnormal coagulation profile; Z79.01 Long term (current) use of anticoagulants; Z79.82 Long term (current) use of aspirin; I34.0 Nonrheumatic mitral (valve) insufficiency; D64.89 Other specified anemias
CPT/HCPCS: 36430; 71045; 71046; 76937; 80048; 80053; 81001; 82595; 82948; 83036; 83690; 83735; 84100; 84132; 84439; 84443; 84484; 85014; 85025; 85027; 85384; 85576; 85610; 85730; 86850; 86900; 86901; 86920; 86927; 86965; 87641; 90935; 93005; 93306; 93308; 93458; 93970; 93998; 94002; 94010; 94150; 94640; 94664; 94667; 94668; 96374; 96375; 99152; 99153; C1760; C1768; C1769; C1893; G0269; J0131; J0171; J0610; J0690; J1250; J1644; J1815; J1817; J2250; J2370; J2440; J2720; J3010; J3370; J3475; J3480; J7040; J7042; J7060; P9016; P9017; P9035; P9045; P9047; Q4081; Q9967